=== PATIENT | female | born 1955 | race Caucasian/White ===

== ENCOUNTER → 2019-05-15 07:00 | Outpatient (CLI) | payer BC, SELFPAY ==
[2019-05-15 08:16] LABS: CREATININE FINGERSTICK < 0.6 mg/dL (0.55-1.02); EGFR FINGERSTICK > 60.0000 mL/min (>60)
== END ==
PROVIDERS: Family Provider Internal Medicine; PCP Internal Medicine; Referring Provider Internal Medicine; Visit Provider Internal Medicine
DX: R90.89 Other abnormal findings on diagnostic imaging of central nervous system (principal); Z78.0 Asymptomatic menopausal state

== ENCOUNTER → 2021-04-15 13:31 | Outpatient (CLI) | payer BC, SELFPAY ==
--- NOTE | 2021-04-15 13:34 | VDLE_ITS ---
Reason For Study: SWELLING Procedure LEFT Exam performed in department. GSV is normal. This is a venous duplex using B-mode, color CFV is compressible, spontaneous, phasic, flow and spectral Doppler. competent, and demonstrates normal Left CFV and POPV doppler taken in augmentation. transverse due to pt. body habitus. FV is compressible, spontaneous, phasic, A preliminary report was called and/or faxed competent and demonstrates normal to DR TAVERAS. augmentation. POP V is compressible, spontaneous, phasic, competent and demonstrates normal augmentation. T/P Trunk is compressible. PTV is compressible. LT PerV is compressible. VL/Venous Duplex US, Unilateral Interpretation Summary There is no evidence of left lower extremity deep vein thrombosis. Left great s aphenous vein appears patent and compressible segmentally. Technically challenging examination second abdon to patient body habitus Ordering Physician: Марина Taveras Referring Physician: Марина Taveras Performed By: Judie Yanes, RDCS, RVT
== END ==
PROVIDERS: PCP Internal Medicine; Referring Provider Internal Medicine; Visit Provider Internal Medicine
DX: M79.89 Other specified soft tissue disorders (principal)
CPT/HCPCS: 93971

== ENCOUNTER → 2024-04-17 | Outpatient (CLI) | payer MEDICARE, SELFPAY ==
--- NOTE | 2024-04-17 15:25 | BI_ITS ---
MAMMOGRAPHY - BILATERAL SCREENING REASON FOR EXAM: Female, 68 years old. Routine annual screening examination. PERTINENT HISTORY: Grandmother with breast cancer. TECHNIQUE: Digital bilateral breast dora (3D mammographic acquisition) in the CC and MLO projections. 2-D mediolateral oblique (MLO) and craniocaudad (CC) views of both breasts were obtained. CAD: Full Field Digital Mammography with Computer Added Detection was performed. COMPARISON: Comparison is made with prior outside examination dated November 14, 2013. FINDINGS: Breast Composition: The breasts are almost entirely fatty. There are no dominant masses or suspicious calcifications. Stable fat-containing bilateral axillary lymph nodes. No other significant abnormalities are identified. There has been no significant change since the prior study. BI/SCRN MAMM (CAD)W/DORA BILAT IMPRESSION: Stable bilateral screening mammogram. Yearly follow-up mammogram recommended. (A) ASSESSMENT CATEGORY: BIRADS Category 2: Benign. A letter regarding these results will be sent to the patient by the facility within 30 days. Approximately 10% of breast cancers are not detected by mammography. A normal mammogram should not delay biopsy of a clinically suspicious abnormality. [id number] Electronically Signed: Porter Garcias MD at 7:45 EDT ,
--- NOTE | 2024-04-17 15:26 | BD_ITS ---
STUDY: DUAL ENERGY X-RAY ABSORPTIOMETRY / DXA REASON FOR EXAM: Female, 68 years old. [id number] -- Postmenopausal status TECHNIQUE: Bone Mineral Density (BMD) measurements of lumbar spine and bilateral hips were obtained. COMPARISON: None. FINDINGS: Lumbar Spine (L1-L4): g/cm2 (0.880) / T-score (-1.8) / Z-score (0.2) Findings are suggestive of osteopenia with a moderate fracture risk. Left Femur Total: g/cm2 (0.911) / T-score (-0.3) / Z-score (1.1) Left Femoral Neck: g/cm2 (0.719) / T-score (-1.2) / Z-score (0.5) Right Femur Total: g/cm2 (0.946) / T-score (0.0) / Z-score (1.4) Right Femoral Neck: g/cm2 (0.687) / T-score (-1.5) / Z-score (0.2) BD/Dexa Bone Density Study IMPRESSION: The patient is considered osteopenic as outlined below according to World Jean Organization (WHO) criteria with a moderate fracture risk. Reference Information: The T-score is the number of standard deviations above or below the standard which is normal for young adults at their peak bone mineral density. The World Health Organization (WHO) interprets the T-scores as follows: Above -1 Normal bone density Between -1 and -2.5 Osteopenia Equal to / or below -2.5 Osteoporosis As a practical clinical guideline, osteopenia may be graded as follows: Mild -1 through -1.5 Moderate -1.6 through -2.0 Severe -2.1 through -2.4 The Z-score is the number of standard deviations above or below age-matched controls. A Z-score of less than -1.5 would be considered abnormal. References: 1. NIH Osteoporosis and Related Bone Diseases www osteo.org 2. International Society for Clinical Densitometry www iscd.org 3. National Osteoporosis Foundation www nof.org Electronically Signed: Porter Garcias MD at 9:42 EDT ,
== END | disposition home or self-care (01) ==
LOC: OPBD 15:23
PROVIDERS: PCP Internal Medicine; Referring Provider Internal Medicine; Visit Provider Internal Medicine
DX: Z12.31 Encounter for screening mammogram for malignant neoplasm of breast (principal); Z78.0 Asymptomatic menopausal state
CPT/HCPCS: 77063; 77067; 77080

== ENCOUNTER → 2025-04-20 | Outpatient (CLI) | payer MEDICARE, OTHER, SELFPAY ==
--- NOTE | 2025-04-20 13:41 | BI_ITS ---
EXAM: SCRN MAMM (CAD)W/DORA BILAT DATE: 04/20/2025 CLINICAL HISTORY: F, Age 69 y/o , BILAT BRST SCREEN DORA ADD-ON; DUE AFTER APRIL 20 TECHNIQUE: SCRN MAMM (CAD)W/DORA BILAT COMPARISON: Prior exam(s) dated 04/17/2024. FINDINGS: TISSUE DENSITY: The breasts are almost entirely fatty. Bilateral Breast Mammographic Findings: Benign-appearing round microcalcifications are seen in both breasts. No suspicious masses, suspicious clustered microcalcifications, architectural distortion or secondary signs of malignancy identified in either breast. Stable nodular densities are seen in both breasts. BI/SCRN MAMM (CAD)W/DORA BILAT IMPRESSION: Stable benign-appearing screening mammogram. OVERALL FINAL ASSESSMENT BI-RADS 2: BENIGN RECOMMENDATION: Routine annual follow-up in 1 Year A letter with findings and recommendations will be mailed to the patient. Reading Location: [id number]
== END | disposition home or self-care (01) ==
LOC: OPBI 13:40
PROVIDERS: PCP Internal Medicine; Referring Provider Internal Medicine; Visit Provider Internal Medicine
DX: Z12.31 Encounter for screening mammogram for malignant neoplasm of breast (principal)
CPT/HCPCS: 77063; 77067

== ENCOUNTER → 2025-05-08 | Outpatient (CLI) | payer MEDICARE, OTHER, SELFPAY ==
--- NOTE | 2025-05-08 13:12 | ECHOD_ITS ---
Reason For Study Reason For Study: MURMUR Procedure This was a 2D Doppler, Color Flow transthoracic echocardiogram. Exam performed in department. Left Ventricle Normal LV size. Mild concentric left ventricular hypertrophy. Left ventricular systolic function is normal. The left ventricular ejection fraction is 65 %. Stage 1 diastolic dysfunction. Right Ventricle Normal RV size. Normal systolic function. Atria There is moderate biatrial dilatation. Mitral Valve Mild mitral annular calcification. Mild (1+) mitral valve insufficiency. Tricuspid Valve Normal tricuspid valve. Mild (1+) tricuspid valve insufficiency. Pulmonary artery systolic pressure is 48 mmHg. Aortic Valve Trisinus/trileaflet aortic valve. Aortic sclerosis, no stenosis. There is no aortic stenosis. Trivial aortic valve insufficiency. Pulmonic Valve The pulmonic valve is not well visualized. Trivial pulmonic valve insufficiency. Great Vessels Mildly dilated aortic root. Pericardium/Pleural Trivial pericardial effusion. There are no echocardiographic indications of cardiac tamponade. MMode/2D Measurements & Calculations LVIDd: 5.3 cm IVSd: 1.3 cm Ao root diam: 4.1 cm LVIDs: 2.7 cm LVPWd: 1.4 cm RVDd: 3.5 cm FS: 49.3 % LAV(MOD-bp): 101.4 ml LVAd ap4: 32.4 cm2 SV(MOD-sp4): 75.1 ml LAV(MOD-bp) Indexed: 39.7 ml/m2 LVLd ap4: 8.0 cm SI(MOD-sp4): 29.4 ml/m2 LAV(MOD-sp2): 86.0 ml EDV(MOD-sp4): 110.0 ml LAV(MOD-sp4): 113.2 ml EDV(sp4-el): 111.6 ml LVAs ap4: 16.2 cm2 LVLs ap4: 6.7 cm ESV(MOD-sp4): 34.9 ml ESV(sp4-el): 33.1 ml EF(MOD-sp4): 68.3 % EF(sp4-el): 70.4 % SV(sp4-el): 78.5 ml LA A4 area: 30.0 cm2 LA dimension(2D): 4.4 cm RA A4 area: 25.3 cm2 TAPSE: 1.9 cm Doppler Measurements & Calculations MV E max brent: 107.4 cm/sec Lat Peak E' Brent: 12.9 cm/sec Med Peak E' Brent: 56.3 cm/sec E/E' lat: 8.3 E/E' med: 1.9 Ao V2 max: 130.0 cm/sec LV V1 max: 96.3 cm/sec TR max brent: 287.1 cm/sec Ao max P.8 mmHg LV V1 max P.7 mmHg TR max P.0 mmHg Ao V2 mean: 93.9 cm/sec LV V1 mean P.2 mmHg Ao mean P.0 mmHg LV V1 mean: 70.2 cm/sec Ao V2 VTI: 30.8 cm LV V1 VTI: 23.1 cm AV (velocity ratio): 0.75 ECHO/Echo Complete Interpretation Summary The left ventricular ejection fraction is 65 %. Stage 1 diastolic dysfunction. Mild concentric left ventricular hypertrophy. There is moderate biatrial dilatation. Mild mitral annular calcification. Mild (1+) mitral valve insufficiency. Aortic sclerosis, no stenosis. Mildly dilated aortic root. Ordering Physician: Марина Taveras Referring Physician: Марина Taveras Performed By: Keyona Meraz RCS
== END | disposition home or self-care (01) ==
LOC: CVS 13:12
PROVIDERS: PCP Internal Medicine; Referring Provider Internal Medicine; Visit Provider Internal Medicine
DX: R01.1 Cardiac murmur, unspecified (principal)
CPT/HCPCS: 93306

== ENCOUNTER → 2025-05-22 | Outpatient (CLI) | payer MEDICARE, OTHER, SELFPAY ==
--- NOTE | 2025-05-22 17:16 | CT_ITS ---
PROCEDURE: CTA CHEST W/WO CONTRAST 05/22/2025 REASON FOR EXAM: OTHER SPECIFIED ABNORMAL FINDINGS OF BLOOD TECHNIQUE: Procedure Code: [id number] Modality: CT Procedure: CTA CHEST W/WO CONTRAST Multiplanar Sagittal and Coronal images were obtained. CONTRAST: Isovue 370 VOLUME: 100 mL One or more dose reduction techniques were used (e.g., Automated exposure control, adjustment of the mA and/or kV according to patient size, use of iterative reconstruction technique). RADIATION DOSE SUMMARY: CTDlvol: 15.5 mGy DLP: 563 mGycm COMPARISON: 09/17/2020. FINDINGS: Peripherally calcified nodule of the left thyroid lobe measuring 1 cm. Moderate coronary artery calcifications are noted. Moderate cardiomegaly. Enlarged main pulmonary artery suggestive of pulmonary arterial hypertension. Subsegmental atelectatic changes. Bilateral basilar hypoventilatory pulmonary changes/ground-glass densities of the lower lobes, hypoventilatory pulmonary changes and/or less likely developing pneumonia. Diffuse spondylosis. Normal enhancement of the main pulmonary artery and right and left pulmonary arteries. Normal enhancement of the bilateral peripheral pulmonary arteries. There is no demonstrated pulmonary embolism. Normal thoracic aorta and visualized great vessels. There is no demonstrated aortic dissection. Normal pericardium. Normal mediastinum. Normal hilar regions. Normal visualized trachea and bronchi. Normal pleura. CT/CTA Chest W/WO Contrast IMPRESSION: No demonstrated pulmonary embolism or arterial dissection. Peripherally calcified nodule of the left thyroid lobe measuring 1 cm. Moderate coronary artery calcifications are noted. Moderate cardiomegaly. Enlarged main pulmonary artery suggestive of pulmonary arterial hypertension. Subsegmental atelectatic changes. Bilateral basilar hypoventilatory pulmonary changes/ground-glass densities of t he lower lobes, hypoventilatory pulmonary changes and/or less likely developing pneumonia. Diffuse spondylosis. Reading Location: [facility] [place] [id number]
--- OUTSIDE RECORDS SUMMARY | 2025-05-22 17:19 | XMS RPT_ITS | CCD ---
Author Organization [facility] Care Team Providers Care Die Welder Name Role Phone Adolfo Osborn Unavailable Tim Rodriguez Unavailable Hannah Ewing Unavailable ARIEL Bradshaw Unavailable Unavailable Pratima Redmond Unavailable Unavailable Unavailable Unavailable Adolfo Osborn Unavailable Tim Rodriguez Unavailable Hannah Ewing Unavailable ARIEL Bradshaw Unavailable Unavailable Pratima Redmond Unavailable Unavailable Unavailable Unavailable Tim Rodriguez Unavailable ARIEL Bradshaw Unavailable Unavailable Wanda Puente Unavailable Unavailable Adolfo Osborn Unavailable Mendy Salazar Unavailable Unavailable Manny Wing Unavailable Unavailabl e Adolfo Osborn MD Unavailable Dr. Tim Rodriguez Unavailable Hannah Ewing Unavailable Jennifer Dr. Dumont Unavailable [phone] ARIEL Bradshaw LPN Unavailable Unavailable Pratima Redmond Unavailable Unavailable Unavailable Unavailable Unavailable Unavailable Dayanna Menchaca LPN Unavailable Unavailable Adolfo Osborn Unavailable Adolfo Osborn MD Unavailable Unavailable Unavailable Qamar, Juan Carlos Unavailable Unavailable Unavailable Unavailable [facility] Unav ailable Wanda Puente LPN Unavailable Unavailable Adolfo Osborn MD Attending Unavailable Anurag ORTA, Adolfo Thomas Referring Unavailable Adolfo Osborn MD Consulting Unavailable Manchak LASTER HAND, Elysia Unavailable Unavailable Unavailable Primary Care Provider UnavailAdolfo Winn MD Primary Care Provider ANURAG, ADOLFO Thomas Primary Care Unavailable KUZNICKI, SERA WORTHINGTON Referring Unavailab le BONEZZI, ADOLFO M Primary Care Unavailable HRNCHAR, DEJA Referring Unavailable BONEZZI, ADOLFO M Primary Care Unavailable HRNCHAR, DEJA Referring Unavailable BONEZZI, ADOLFO Thomas Primary Care Unavailable HRNCHAR, DEJA Referring Unavailable BRAZOFSKYARLETH Attending Unavailable TIZZANO, HUNTER Langley Referring Unavailable KUZNICKI, SERA WORTHINGTON Admitting Unavailab le KUZNICKI, SERA WORTHINGTON Attending Unavailab le TIZZANO, HUNTER Langley Referring Unavailable TIZZANO, HUNTER Langley Attending Unavailable SELF Referring Unavailable KUZNICKI, SERA WORTHINGTON Attending Unavailab le BRAZOFSKYARLETH Referring Unavailable HRNCHAR, DEJA Attending Unavailable BONEADOLFO MCCLURE Primary Care Unavailable HRNCHAR, DEJA Attending Unavailable BONEREN, ADOLFO Thomas Primary Care Unavailable KUZNICKI, SERA WORTHINGTON Attending Unavailab le BONEZZI, ADOLFO M Primary Care Unavailable HRNCHAR, DEJA Attending Unavailable BONEREN, ADOLFO M Primary Care Unavailable Dr. Adolfo Osborn MD Primary Care Provider [phone] Dr. Adolfo Osborn MD Attending Provider Dr. Adolfo Osborn MD Referring Provider [phone] Adolfo Osborn Attending Unavailable Adolfo Osborn Referring Unavailable Anurag, Adolfo Primary Care Unavailable Adolfo Osborn Referring Unavailable Adolfo Osborn Primary Care Unavailable Adolfo Osborn Attending Unavailable Adolfo Osborn Attending Unavailable Adolfo Osborn Referring Unavailable Boneren, Adolfo Primary Care Unavailable BoneAdolfo mcclure Primary Care Unavailable Sawyer, Deb Attending Unavailable Medications Current Medications Medication Drug Class(es) Dates Sig (Normalized) Sig (Original) acetaminophen 500 mg oral tablet (7 sources) Start: 07-21-2024 take 2 tablets by mouth every six hours as needed acetaminophen (TYLENOL EXTRA STRENGTH) 500 mg tablet Take 2 tablets by mouth every 6 hours as needed for pain. 60 tablet 07/21/2024 5:58 PM EST 07/21/2024 Active amLODIPine 10 mg oral tablet (20 sources) Dihydropyridine Calcium Channel Marty Start: 03-31-2024 take 1 tablet by mouth once daily amLODIPine (NORVASC) 10 mg tablet Take 10 mg by mouth once daily. 03/31/2024 Active Start: 03-09-2023 take 1 tablet by lefty th once daily Norvasc 10 mg oral tablet 1 Tablet QD for 90 days Quantity: 90 {Tablet} Refills: 3 Ordered: 09-Mar-2023 Adolfo Osborn MD, MD, Dana M Start : 09-Mar-2023 Active Comments: Mail order. Start: 04-14-2022 take 1 tablet by lefty th once daily Norvasc 10 mg oral tablet 1 Tablet QD for 0 days Quantity: 90 {Tablet} Refills: 3 Ordered: 06-Mar-2023 Anurag ORTA, Adolfo Montilla MD Start : 06-Mar-2023 Active Comments: Mail order. Start: 09-26-2021 take 1 tablet by lefty once daily Norvasc 10 MG Oral Tablet 1 Tablet QD for 0 days Quantity: 90 {Tablet} Refills: 3 Ordered: 26-Sep-2021 Anurag ORTA, Adolfo Montilla MD Start : 26-Sep-2021 Active Start: 12-08-2020 take 1 tablet by lefty th once daily Norvasc 10 MG Oral Tablet 1 Tablet QD for 0 days Quantity: 90 {Tablet} Refills: 3 Ordered: 08-Dec-2020 Anurag ORTA, Adolfo Montilla MD Start : 08-Dec-2020 Active Comments: Mail order. Start: 12-08-2020 Norvasc 10 MG Oral Tablet 1 Tablet QD for 0 days Quantity: 10 {Tablet} Refills: 3 Ordered: 08-Dec-2020 Anurag ORTA, Adolfo Montilla MD Start : 08-Dec-2020 Active Comments: give 10 day supply until mail order arrives Start: 08-30-2020 take 1 tablet by lefty th once daily Norvasc 10 MG Oral Tablet 1 Tablet QD for 0 days Quantity: 90 {Tablet} Refills: 0 Ordered: 30-Aug-2020 Adolfo Osborn MD, MD, Dana M Start : 30-Aug-2020 Active Comments: Mail order. Start: 05-25-2020 take 1 tablet by lefty th once daily Norvasc 10 MG Oral Tablet 1 Tablet QD for 0 days Quantity: 90 {Tablet} Refills: 0 Ordered: 25-May-2020 Anurag ORTA, Adolfo Montilla MD Start : 25-May-2020 Active Comments: Mail order. 05-25-20 no refills patient is overdue for an appointment Start: 05-13-2019 take 1 tablet by lefty th once daily Norvasc 10 MG Oral Tablet 1 Tablet QD for 0 days Quantity: 90 {Tablet} Refills: 3 Ordered: 13-May-2019 Anurag ORTA, Adolfo Montilla MD Start : 13-May-2019 Active Comments: Mail order. Start: 02-10-2019 take 1 tablet by lefty th once daily Norvasc 10 MG Oral Tablet 1 Tablet QD for 0 days Quantity: 90 {Tablet} Refills: 3 Ordered: 10-Feb-2019 Anurag ORTA, Adolfo Montilla MD Start : 10-Feb-2019 Active Comments: Mail order. Start: 09-05-2018 take 1 tablet by lefty th once daily Norvasc 10 MG Oral Tablet 1 Tablet QD for 0 days Quantity: 90 {Tablet} Refills: 3 Ordered: 05-Sep-2018 Anurag ORTA, Adolfo Montilla MD Start : 05-Sep-2018 Active Start: 09-03-2018 take 1 tablet by lefty th once daily Norvasc 10 MG Oral Tablet 1 Tablet QD for 0 days Quantity: 90 {Tablet} Refills: 3 Ordered: 03-Sep-2018 Anurag ORTA, Adolfo Montilla MD Start : 03-Sep-2018 Active Start: 08-05-2018 take 1 tablet by lefty th once daily Norvasc 10 MG Oral Tablet 1 Tablet QD for 0 days Quantity: 90 {Tablet} Refills: 0 Ordered: 05-Aug-2018 Adolfo Osborn MD, MD, Adolfo Thomas Start : 05-Aug-2018 Active take 1 tablet by lefty th once daily amLODIPine 10 mg oral tablet ; 1 tab(s) orally once a day Quantity: 0 Refills: 0 Ordered: 14-Feb-2020 Jody Marie Generic Substitution Allowed Comment on above: Mail order. Mail order. 05-25-20 no refills patient is overdue for an appointment give 10 day supply u ntil mail order arrives CBD eatable (1 source) CBD eatable Rolando tity: 0 Refills: 0 Ordered: 06-Apr-2022 Taylor Osorio Generic Substitution Allowed colestipol hydrochloride 5000 mg granules for oral suspension (20 sources) Bile Acid Sequestrant Start: 2023 take 5 g by mouth once daily Colestipol HCl 5 gram granules Take 5 g by mouth once daily. 03/18/2024 Active hydroCHLOROthiazide 25 mg oral tablet (20 sources) Thiazide Diuretic Start: 2023 take 1 tablet by mouth once daily hydroCHLOROthiazide 25 mg tablet Take 25 mg by mouth once daily. 03/31/2024 Active Start: 03-06-2023 take 1 tablet by lefty th once daily hydroCHLOROthiazide 25 mg oral tablet 1 Tablet QD for 0 days Quantity: 90 {Tablet} Refills: 3 Ordered: 06-Mar-2023 Anurag ORTA, Adolfo Montilla MD Start : 06-Mar-2023 Active Comments: Mail order. Start: 04-14-2022 take 1 tablet by lefty th once daily hydroCHLOROthiazide 25 MG Oral Tablet 1 Tablet QD for 0 days Quantity: 90 {Tablet} Refills: 3 Ordered: 14-Apr-2022 Adolfo Osborn MD, MD, Dana M Start : 14-Apr-2022 Active Comments: Mail order. Start: 09-26-2021 take 1 tablet by lefty th once daily hydroCHLOROthiazide 25 MG Oral Tablet 1 Tablet QD for 0 days Quantity: 90 {Tablet} Refills: 3 Ordered: 26-Sep-2021 Anurag ORTA, Adolfo Montilla MD Start : 26-Sep-2021 Active Start: 12-08-2020 take 1 tablet by lefty th once daily hydroCHLOROthiazide 25 MG Oral Tablet 1 Tablet QD for 0 days Quantity: 10 {Tablet} Refills: 3 Ordered: 08-Dec-2020 Adolfo Osborn MD, MD, Dana M Start : 08-Dec-2020 Active Comments: 12-08-20 given enough for 10 day supply until mail order arrives Start: 08-30-2020 take 1 tablet by lefty th once daily hydroCHLOROthiazide 25 MG Oral Tablet 1 Tablet QD for 0 days Quantity: 90 {Tablet} Refills: 0 Ordered: 30-Aug-2020 Anurag ORTA, Adolfo Montilla MD Start : 30-Aug-2020 Active Comments: Mail order. Start: 05-25-2020 take 1 tablet by lefty th once daily hydroCHLOROthiazide 25 MG Oral Tablet 1 Tablet QD for 0 days Quantity: 90 {Tablet} Refills: 0 Ordered: 25-May-2020 Adolfo Osborn MD, MD, Dana M Start : 25-May-2020 Active Comments: Mail order. 05-25-20 no refills patient is overdue for an appointment Start: 05-13-2019 take 1 tablet by lefty th once daily hydroCHLOROthiazide 25 MG Oral Tablet 1 Tablet QD for 0 days Quantity: 90 {Tablet} Refills: 3 Ordered: 13-May-2019 Adolfo Osborn MD, MD, Dana M Start : 13-May-2019 Active Comments: Mail order. Start: 02-10-2019 take 1 tablet by lefty th once daily hydroCHLOROthiazide 25 MG Oral Tablet 1 Tablet QD for 0 days Quantity: 90 {Tablet} Refills: 3 Ordered: 10-Feb-2019 Adolfo Osborn MD, MD, Dana M Start : 10-Feb-2019 Active Comments: Mail order. Start: 09-05-2018 take 1 tablet by lefty th once daily HydroCHLOROthiazide 25 MG Oral Tablet 1 Tablet QD for 0 days Quantity: 90 {Tablet} Refills: 3 Ordered: 05-Sep-2018 Adolfo Osborn MD, MD, Dana M Start : 05-Sep-2018 Active Start: 09-03-2018 take 1 tablet by lefty th once daily HydroCHLOROthiazide 25 MG Oral Tablet 1 Tablet QD for 0 days Quantity: 90 {Tablet} Refills: 3 Ordered: 03-Sep-2018 Adolfo Osborn MD, MD, Dana M Start : 03-Sep-2018 Active Start: 08-05-2018 take 1 tablet by lefty th once daily HydroCHLOROthiazide 25 MG Oral Tablet 1 Tablet QD for 0 days Quantity: 90 {Tablet} Refills: 0 Ordered: 05-Aug-2018 Adolfo Osborn MD, MD, Dana M Start : 05-Aug-2018 Active HYDROCHLOROTHIAZ JULIA 25MG TABLETS ; 1 tab(s) orally once a day Quantity: 0 Refills: 3 Ordered: 14-Feb-2020 Jody Marie Generic Substitution Allowed Comments: Source=[employer], Medication=HYDROCHLOROTHIAZIDE 25MG TABLETS, OriginatingSource=[employer] [id number], OriginatingProvider=ADOLFO OSOBRN, Duration=90, Quantity=90, Refills=3, Date Last Modified/Filled=28-Nov-2019 Comment on above: Mail order. Mail order. 05-25-20 no refills patient is overdue for an appointment 12-08-20 given enough for 10 day supply until mail order arrives Source=[employer], Medication=HYDROCHLOROTHIAZIDE 25MG TABLETS, OriginatingSource=[employer] [id number], OriginatingProvider=ADOLFO OSBORN, Duration=90, Quantity=90, Refills=3, Date Last Modified/Filled=28-Nov-2019 ibuprofen 600 mg oral tablet (7 sources) Nonsteroidal Anti-inflammatory Drug Start: 07-21-2024 take 1 tablet by mouth every six hours as needed ibuprofen (MOTRIN) 600 mg tablet Take 1 tablet by mouth every 6 hours as needed for pain. 60 tablet 07/21/2024 5:58 PM EST 07/21/2024 Active losartan potassium 100 mg oral tablet (20 sources) Angiotensin 2 Receptor Marty Start: 04-01-2024 losartan (COZAAR) 100 mg tablet 100 mg once daily. 04/01/2024 Active Start: 03-06-2023 take 1 tablet by lefty th once daily losartan 100 mg oral tablet 1 Tablet daily for 0 days Quantity: 90 {Tablet} Refills: 3 Ordered: 06-Mar-2023 Adolfo Osborn MD, MD, Adolfo M Start : 06-Mar-2023 Active Comments: Mail order. Start: 04-14-2022 take 1 tablet by lefty th once daily Losartan Potassium 100 MG Oral Tablet 1 Tablet daily for 0 days Quantity: 90 {Tablet} Refills: 3 Ordered: 14-Apr-2022 Anurag ORTA, Adolfo Montilla MD Start : 14-Apr-2022 Active Comments: Mail order. Start: 09-26-2021 take 1 tablet by lefty th once daily Losartan Potassium 100 MG Oral Tablet 1 Tablet daily for 0 days Quantity: 90 {Tablet} Refills: 3 Ordered: 26-Sep-2021 Anurag ORTA, Adolfo Montilla MD Start : 26-Sep-2021 Active Start: 12-08-2020 take 1 tablet by lefty th once daily Losartan Potassium 100 MG Oral Tablet 1 Tablet daily for 0 days Quantity: 90 {Tablet} Refills: 3 Ordered: 08-Dec-2020 Anurag ORTA, Adolfo Montilla MD Start : 08-Dec-2020 Active Comments: Mail order. Start: 08-30-2020 take 1 tablet by lefty th once daily Losartan Potassium 100 MG Oral Tablet 1 Tablet daily for 0 days Quantity: 90 {Tablet} Refills: 0 Ordered: 30-Aug-2020 Adolfo Osborn MD, MD, Dana M Start : 30-Aug-2020 Active Comments: Mail order. Start: 05-25-2020 take 1 tablet by lefty th once daily Losartan Potassium 100 MG Oral Tablet 1 Tablet daily for 0 days Quantity: 90 {Tablet} Refills: 0 Ordered: 25-May-2020 Adolfo Osborn MD, MD, Dana M Start : 25-May-2020 Active Comments: Mail order. 05-25-20 no refills patient is overdue for an appointment Start: 05-13-2019 take 1 tablet by lefty th once daily Losartan Potassium 100 MG Oral Tablet 1 Tablet daily for 0 days Quantity: 90 {Tablet} Refills: 3 Ordered: 13-May-2019 Adolfo Osborn MD, MD, Dana M Start : 13-May-2019 Active Comments: Mail order. Start: 09-05-2018 take 1 tablet by lefty th once daily Losartan Potassium 100 MG Oral Tablet 1 Tablet daily for 0 days Quantity: 90 {Tablet} Refills: 3 Ordered: 05-Sep-2018 Adolfo Osborn MD, MD, Dana M Start : 05-Sep-2018 Active Comments: Mail order. Start: 09-03-2018 take 1 tablet by lefty th once daily Losartan Potassium 100 MG Oral Tablet 1 Tablet daily for 0 days Quantity: 90 {Tablet} Refills: 3 Ordered: 03-Sep-2018 Adolfo Osborn MD, MD, Dana M Start : 03-Sep-2018 Active Start: 08-05-2018 take 1 tablet by lefty th once daily Losartan Potassium 100 MG Oral Tablet 1 Tablet daily for 0 days Quantity: 90 {Tablet} Refills: 0 Ordered: 05-Aug-2018 Adolfo Osborn MD, MD, Dana M Start : 05-Aug-2018 Active take 1 tablet by lefty th once daily losartan 100 mg oral tablet ; 1 tab(s) orally once a day Quantity: 0 Refills: 0 Ordered: 14-Feb-2020 Jody Marie Generic Substitution Allowed Comment on above: Mail order. Mail order. 05-25-20 no refills patient is overdue for an appointment give enough for 10 d ays until mail order arrives metoprolol tartrate 50 mg oral tablet (20 sources) beta-Adrenergic Marty Start: 04-16-2024 metoprolol tartrate, short acting, (LOPRESSOR) 50 mg tablet Take 100 mg by mouth two times a day. 04/16/2024 Active Start: 04-16-2024 take 1 tablet by lefty th twice daily metoprolol tartrate, short acting, (LOPRESSOR) 50 mg tablet Take 50 mg by mouth two times a day. 04/16/2024 Active Start: 05-04-2022 take 1 tablet by lefty th twice daily Lopressor 50 mg oral tablet 1 Tablet bid for 0 days Quantity: 180 {Tablet} Refills: 3 Ordered: 06-Mar-2023 Adolfo Osborn MD, MD, Dana M Start : 06-Mar-2023 Active Start: 09-26-2021 take 1 tablet by lefty th twice daily Lopressor 50 MG Oral Tablet 1 Tablet bid for 0 days Quantity: 180 {Tablet} Refills: 3 Ordered: 26-Sep-2021 Adolfo Osborn MD, MD, Dana M Start : 26-Sep-2021 Active Start: 12-08-2020 take 4-14 tablets by mouth twice daily Lopressor 50 MG Oral Tablet 1 Tablet bid for 0 days Quantity: 20 {Tablet} Refills: 0 Ordered: 08-Dec-2020 Anurag ORTA, Adolfo Montilla MD Start : 08-Dec-2020 Active Comments: 12-08-20 give enough for 10 days until mail order arrives Start: 08-30-2020 take 1 tablet by lefty th twice daily Lopressor 50 MG Oral Tablet 1 Tablet bid for 0 days Quantity: 180 {Tablet} Refills: 0 Ordered: 30-Aug-2020 Anurag ORTA, Adolfo Montilla MD Start : 30-Aug-2020 Active Comments: Mail order. Start: 05-28-2020 take 1 tablet by lefty th twice daily Lopressor 50 MG Oral Tablet 1 Tablet bid for 0 days Quantity: 180 {Tablet} Refills: 0 Ordered: 28-May-2020 Adolfo Osborn MD, MD, Dana M Start : 28-May-2020 Active Comments: Mail order. 05-28-2020 90 days only no refills patient is over due for an appointment Start: 05-13-2019 take 1 tablet by lefty th twice daily Lopressor 50 MG Oral Tablet 1 Tablet bid for 0 days Quantity: 180 {Tablet} Refills: 3 Ordered: 13-May-2019 Adolfo Osborn MD, MD, Dana M Start : 13-May-2019 Active Comments: Mail order. Start: 02-10-2019 take 1 tablet by lefty th twice daily Lopressor 50 MG Oral Tablet 1 Tablet bid for 0 days Quantity: 180 {Tablet} Refills: 3 Ordered: 10-Feb-2019 Adolfo Osborn MD, MD, Dana M Start : 10-Feb-2019 Active Comments: Mail order. Start: 09-05-2018 take 1 tablet by lefty th twice daily Lopressor 50 MG Oral Tablet 1 Tablet bid for 0 days Quantity: 180 {Tablet} Refills: 3 Ordered: 05-Sep-2018 Adolfo Osborn MD, MD, Dana M Start : 05-Sep-2018 Active Start: 09-03-2018 take 1 tablet by lefty th twice daily Lopressor 50 MG Oral Tablet 1 Tablet bid for 0 days Quantity: 180 {Tablet} Refills: 3 Ordered: 03-Sep-2018 Anurag ORTA, Adolfo Montilla MD Start : 03-Sep-2018 Active Start: 07-13-2017 take 1 tablet by lefty th twice daily Lopressor 50 MG Oral Tablet 1 Tablet bid for 0 days Quantity: 180 {Tablet} Refills: 3 Ordered: 13-Jul-2017 Anurag ORTA, Adolfo Montilla MD Start : 13-Jul-2017 Active Comment on above: Mail order. Mail order. 0 90 days only no refills patient is over due for an appointment 12-08-20 give enough for 10 days until mail order arrives sennosides, fci 8.6 mg oral tablet (7 sources) Start: 07-21-20 take 1 tablet by mouth every twelve hours as needed Senna 8.6 mg tab Take 1 tablet by mouth two times a day as needed for constipation. 20 tablet 07/21/2024 5:58 PM EST 07/21/2024 Active sulfamethoxazole 800 mg / trimethoprim 160 mg oral tablet (1 source) Dihydrofolate Reductase Inhibitor Antibacterial, Sulfonamide Antimicrobial Start: 04-06-20 End: 04-15-20 take 1 tablet by mouth twice daily at mealtime Bactrim DS 800 mg-160 mg oral tablet ; 1 tab(s) orally 2 times a day x 10 days. Take with food. Quantity: 20 Refills: 0 Ordered: 06-Apr-2022 Juan Carlos Rainey Start: 06-Apr-2022 End: 15-Apr-2022 Generic Substitution Allowed Comments: Avoid prolonged or excessive exposure to direct and/or artificial sunlight while taking this medication.Finish all this medication unless otherwise directed by prescriber.Medica tion should be taken with plenty of water. Comment on above: Avoid prolonged or e xcessive exposure to direct and/or artificial sunlight while taking this medication.Finish all this medication unless otherwise directed by prescriber.Medication should be taken with plenty of water. Completed/Discontinued Medications Medication Drug Class(es) Dates Sig (Normalized) Sig (Original) [id number] 200 actuat albuterol 0.09 mg/actuat metered dose inhaler (20 sources) beta2-Adrenergic Agonist Start: 04-29-2024 End: 07-17-2024 take 1 puff(s) by inhalation every four hours as needed albuterol HFA (PROVENTIL HFA, VENTOLIN HFA) 90 mcg/actuation inhaler Inhale 1 Puff as instructed every 4 hours as needed. 04/29/2024 07/17/2024 Discontinued Start: 02-02-2012 End: 02-19-2012 take 2 puff(s) by inhalation three times daily PROAIR HFA, 108 (90 Base)MCG/ACT (Inhalation Aerosol Solution) 2 (two) Puff(s) tid for 0 days Quantity: 1 {Aerosol_Soln} Refills: 0 Ordered: 19-Feb-2012 ARIEL Bradshaw LPN Start : 02-Feb-2012 End : 19-Feb-2012 Inactive Start: 02-02-2012 End: 02-19-2012 take 2 puff(s) by inhalation three times daily PROAIR HFA, 108 (90 Base)MCG/ACT (Inhalation Aerosol Solution) 2 (two) Puff(s) tid for 0 days Quantity: 1 {Aerosol_Soln} Refills: 0 Ordered: 19-Feb-2012 ARIEL Bradshaw LPN Start : 02-Feb-2012 End : 19-Feb-2012 Inactive aliskiren 300 mg oral tablet (20 sources) Renin Inhibitor Start: 11-21-2011 End: 11-21-2011 take 1 tablet by mouth once daily TEKTURNA, 300MG (Oral Tablet) 1 (one) Tablet qd for 0 days Quantity: 90 {Tablet} Refills: 3 Ordered: 21-Nov-2011 Adolfo Osborn MD, MD, Adolfo Thomas Start : 21-Nov-2011 End : 21-Nov-2011 Discontinued amLODIPine 10 mg / olmesartan medoxomil 40 mg oral tablet (20 sources) Dihydropyridine Calcium Channel Marty, Angiotensin 2 Receptor Marty Start: 12-15-2011 End: 12-29-2011 take 1 tablet by mouth once daily TIA, 10-40MG (Oral Tablet) 1 (one) Tablet qd for 0 days Quantity: 90 {Tablet} Refills: 3 Ordered: 29-Dec-2011 Juan Carlos Barron RN Start : 15-Dec-2011 End : 29-Dec-2011 Inactive ascorbic acid 1000 mg oral tablet (8 sources) Vitamin C take 1 mg by mouth twice daily Vitamin C 1,000 mg oral tablet bid (1,000 mg) Active ascorbic acid 60 mg / beta carotene 5000 unt / copper sulfate 40 mg / dl-alpha tocopheryl acetate 30 unt / sodium selenite 0.04 mg / zinc oxide 40 mg oral tablet (6 sources) Vitamin C End: 08-08-2007 take 1 tablet by mouth once daily CENTRUM (Oral Tablet) 1 qd for 0 days Refills: 0 Ordered: 08-Aug-2007 ARIEL Bradshaw LPN End : 08-Aug-2007 Discontinued aspirin 81 mg oral tablet (20 sources) Platelet Aggregation Inhibitor, Nonsteroidal Anti-inflammatory Drug take 1 tablet by mouth once daily Aspirin Low Dose 81 MG Oral Tablet 1 qd (81 MG) Inactive atenolol 50 mg oral tablet (20 sources) beta-Adrenergic Marty Start: 11-03-2008 End: 01-05-2009 take 1 tablet by mouth once daily ATENOLOL, 50MG (Oral Tablet) 1 Tablet QD for 0 days Refills: 0 Ordered: 05-Jan-2009 Adolfo Osborn MD, MD, Dana M Start : 03-Nov-2008 End : 05-Jan-2009 Discontinued atorvastatin 40 mg oral tablet (20 sources) HMG-CoA Reductase Inhibitor Start: 02-02-2017 End: 02-02-2017 Atorvastatin Calcium 40 MG Oral Tablet 1 (one) Tablet at night for 0 days Quantity: 90 {Tablet} Refills: 3 Ordered: 02-Feb-2017 Anurag ORTA, Adolfo Osborn MD, Adolfo Thomas Start : 02-Feb-2017 End : 02-Feb-2017 Inactive Comments: Mail order. Comment on above: Mail order. 24 hr buPROPion hydrochloride 150 mg extended release oral tablet (11 sources) Aminoketone Start: 11-07-2021 End: 04-14-2022 take 1 tablet by mouth every twenty-four hours in the morning buPROPion HCl ER (XL) 150 MG Oral Tablet Extended Release 24 Hour 1 (one) Tablet in am for 0 days Quantity: 30 {Tablet} Refills: 5 Ordered: 14-Apr-2022 Start : 07-Nov-2021 End : 14-Apr-2022 Inactive cefdinir 300 mg oral capsule (15 sources) Cephalosporin Antibacterial Start: 04-15-2021 End: 11-07-2021 take 1 capsule by mouth twice daily Cefdinir 300 MG Oral Capsule 1 (one) Capsule bid for 0 days Quantity: 20 {Capsule} Refills: 0 Ordered: 07-Nov-2021 Nikolai BARBA Dayanna Start : 15-Apr-2021 End : 07-Nov-2021 Inactive cefuroxime 500 mg oral tablet (20 sources) Cephalosporin Antibacterial Start: 02-02-2012 End: 02-16-2012 take 1 tablet by mouth twice daily CEFTIN, 500MG (Oral Tablet) 1 Tablet bid for 14 days Quantity: 28 {Tablet} Refills: 0 Ordered: 02-Feb-2012 Sarah Iglesias Start : 02-Feb-2012 End : 16-Feb-2012 Inactive Centrum (2 sources) End: 08-08-2007 take 1 tablet by mouth once daily CENTRUM (Oral Tablet) 1 qd for 0 days Refills: 0 Ordered: 08-Aug-2007 ARIEL Bradshaw End : 08-Aug-2007 Discontinued CENTRUM (Oral Tablet) (20 sources) End: 08-08-2007 take 1 tablet by mouth once daily CENTRUM (Oral Tablet) 1 qd for 0 days Refills: 0 Ordered: 08-Aug-2007 ARIEL Bradshaw LPN End : 08-Aug-2007 Discontinued End: 08-08-2007 take 1 tablet by mouth once daily CENTRUM (Oral Tablet) 1 qd for 0 days Refills: 0 Ordered: 08-Aug-2007 ARIEL Bradshaw End : 08-Aug-2007 Discontinued cetirizine hydrochloride 10 mg oral capsule (20 sources) Histamine-1 Receptor Antagonist Start: 09-17-2020 take 1 capsule by mouth once daily ZyrTEC Allergy 10 MG Oral Capsule 1 (one) Capsule daily for 0 days Quantity: 30 {Capsule} Refills: 0 Ordered: 15-Apr-2021 ARIEL Bradshaw LPN Start : 17-Sep-2020 Active take 1 tablet by mouth once amina y cetirizine (ZYRTEC) 10 mg tablet Take 10 mg by mouth once daily. Active cholecalciferol 0.05 mg oral tablet (20 sources) Vitamin D Start: 09-03-2018 take 1 tablet by mouth once daily Vitamin D3 2000 UNIT Oral Tablet [id number] Tablet qd for 0 days Quantity: 30 {Tablet} Refills: 0 Ordered: 03-Sep-2018 Adolfo Osborn MD, MD, Dana M Start : 03-Sep-2018 Active Start: 07-24-2016 take 1 tablet by lefty th in the morning Vitamin D3 2000 UNIT Oral Tablet Chewable 1 (one) Tablet Chewable Tablet Chewable in am for 0 days Quantity: 30 {Tablet} Refills: 0 Ordered: 02-Feb-2017 ARIEL Bradshaw Start : 24-Jul-2016 Active clotrimazole 10 mg oral lozenge (20 sources) Azole Antifungal Start: 01-16-2011 End: 01-26-2011 MYCELEX, 10MG (Mouth/Throat Desiree) 1 Desiree 5x daily for 10 days Quantity: 50 {Desiree} Refills: 0 Ordered: 16-Jan-2011 Sarah Iglesias Start : 16-Jan-2011 End : 26-Jan-2011 Inactive cyclobenzaprine hydrochloride 10 mg oral tablet (3 sources) Muscle Relaxant Start: 01-19-2021 End: 01-21-2021 take 1 tablet by mouth three times daily cyclobenzaprine 10 mg oral tablet ; 1 tab(s) orally 3 times a day Quantity: 9 Refills: 0 Ordered: 18-Jan-2021 Mendy Salazar Start: 18-Jan-2021 End: 20-Jan-2021 Status: Other Generic Substitution Allowed Comments: May cause drowsiness. Alcohol may intensify this effect. Use care when operating dangerous machinery.Obtain medical advice before taking any non-prescription drugs as some may affect the action of this medication. Comment on above: May cause drowsiness . Alcohol may intensify this effect. Use care when operating dangerous machinery.Obtain medical advice before taking any non-prescription drugs as some may affect the action of this medication. desonide 0.5 mg/ml topical cream (20 sources) Corticosteroid Start: 08-30-2017 End: 09-03-2018 DesOwen 0.05 % External Cream uad cream cream to affected area(s) bid prnm for 0 days Quantity: 15 {Gram} Refills: 2 Ordered: 03-Sep-2018 ARIEL Bradshaw LPN Start : 30-Aug-2017 End : 03-Sep-2018 Inactive doxycycline hyclate 100 mg oral tablet (20 sources) Tetracycline-class Drug Start: 02-02-2012 End: 02-16-2012 take 1 tablet by mouth twice daily DOXYCYCLINE HYCLATE, 100MG (Oral Tablet) 1 Tablet bid for 14 days Quantity: 28 {Tablet} Refills: 0 Ordered: 02-Feb-2012 Sarah Iglesias Start : 02-Feb-2012 End : 16-Feb-2012 Inactive fenofibrate 48 mg oral tablet (20 sources) Peroxisome Proliferator Receptor alpha Agonist Start: 01-22-2014 End: 01-22-2014 take 1 tablet by mouth once daily TRICOR, 48MG (Oral Tablet) 1 Tablet daily for 0 days Quantity: 90 {Tablet} Refills: 3 Ordered: 22-Jan-2014 Adolfo Osborn MD, MD, Dana M Start : 22-Jan-2014 End : 22-Jan-2014 Discontinued fluconazole 150 mg oral tablet (1 source) Azole Antifungal Start: 03-04-2025 End: 03-04-2025 take 1 tablet by mouth once fluconazole (DIFLUCAN) 150 mg tablet Take 1 tablet by mouth one time only for 1 dose. 1 tablet 03/04/2025 03/04/2025 irbesartan 300 mg oral tablet (20 sources) Angiotensin 2 Receptor Marty Start: 11-03-2008 End: 01-05-2009 take 1 tablet by mouth once daily AVAPRO, 300MG (Oral Tablet) 1 Tablet qd for 0 days Refills: 0 Ordered: 05-Jan-2009 Adolfo Osborn MD, MD, Dana M Start : 03-Nov-2008 End : 05-Jan-2009 Discontinued lidocaine 0.05 mg/mg medicated patch (3 sources) Antiarrhythmic, Amide Local Anesthetic Start: 01-19-2021 End: 01-25-2021 Lidoderm 5% topical film ; Apply topically to affected area once a day Quantity: 7 Refills: 0 Ordered: 18-Jan-2021 Mendy Salazar Start: 18-Jan-2021 End: 24-Jan-2021 Status: Other Generic Substitution Allowed Comments: For external use only.Remove old patch prior to applying a new patch. Comment on above: For external use onl y.Remove old patch prior to applying a new patch. lisinopril 40 mg oral tablet (20 sources) Angiotensin Converting Enzyme Inhibitor Start: 06-13-2012 End: 06-13-2012 take 1 tablet by mouth once daily LISINOPRIL, 40MG (Oral Tablet) 1 Tablet qd for 0 days Quantity: 90 {Tablet} Refills: 3 Ordered: 13-Jun-2012 Adolfo Osborn MD, MD, Dana M Start : 13-Jun-2012 End : 13-Jun-2012 Discontinued lorcaserin hydrochloride 10 mg oral tablet (20 sources) Serotonin-2c Receptor Agonist Start: 02-02-2017 End: 02-02-2017 take 1 tablet by mouth twice daily Belviq 10 MG Oral Tablet 1 (one) Tablet bid for 0 days Quantity: 60 {Tablet} Refills: 0 Ordered: 02-Feb-2017 Adolfo Osborn MD, MD, Dana M Start : 02-Feb-2017 End : 02-Feb-2017 Inactive Comments: sixty BMIdid not feel like it helped Comment on above: sixty BMIdid not fee l like it helped medroxyPROGESTERone acetate 10 mg oral tablet (20 sources) Progestin End: 01-05-2009 MEDROXYPROGESTERONE ACETATE, 10MG (Oral Tablet) 1 qd days 1-12 for 0 days Refills: 0 Ordered: 05-Jan-2009 ARIEL Bradshaw LPN End : 05-Jan-2009 Inactive Multivitamin preparation (20 sources) take 1 tablet by mouth once daily MULTIVITAMIN (PO Tab) 1 (one) qd Active End: 02-19-2012 MULTIVITAMIN (Oral Liquid) f or 0 days Refills: 0 Ordered: 19-Feb-2012 Adolfo Osborn MD, MD, Dana M End : 19-Feb-2012 Discontinued Comments: This order discontinued per [facility]. Comment on above: This order discontin ued per [facility]. pravastatin sodium 20 mg oral tablet (20 sources) HMG-CoA Reductase Inhibitor Start: 014 End: 014 take 1 tablet by mouth once daily PRAVACHOL, 20MG (Oral Tablet) 1 Tablet qd for 0 days Quantity: 90 {Tablet} Refills: 3 Ordered: 22-Jan-2014 Adolfo Osborn MD, MD, Dana M Start : 22-Jan-2014 End : 22-Jan-2014 Discontinued predniSONE 20 mg oral tablet (20 sources) Start: 012 End: take 1 tablet by mouth once daily PREDNISONE, 20MG (Oral Tablet) 1 Tablet daily for 3 days Quantity: 3 {Tablet} Refills: 0 Ordered: 02-Feb-2012 Sarah Iglesias Start : 02-Feb-2012 End : 05-Feb-2012 Inactive progesterone 200 mg oral capsule (20 sources) Progesterone End: take 1 capsule by mouth once daily PROMETRIUM, 200MG (Oral Capsule) 1 qd for 0 days Refills: 0 Ordered: 16-Jan-2011 End : 16-Jan-2011 Inactive sulfacetamide sodium 100 mg/ml ophthalmic solution (20 sources) Sulfonamide Antibacterial Start: End: SULFACETAMIDE SODIUM, 10% (Ophthalmic Solution) 2 (two) Drop(s) q 2-3 hrs for 7 days Quantity: 1 {Solution} Refills: 0 Ordered: 16-Jan-2011 Sarah Iglesias Start : 16-Jan-2011 End : 23-Jan-2011 Inactive terbinafine 250 mg oral tablet (20 sources) Allylamine Antifungal Start: End: 014 take 1 tablet by mouth once daily LAMISIL, 250MG (Oral Tablet) 1 Tablet daily for 0 days Quantity: 90 {Tablet} Refills: 0 Ordered: 22-Jan-2014 ARIEL Bradshaw LPN Start : 13-Jun-2012 End : 22-Jan-2014 Inactive triamcinolone acetonide 1 mg/ml topical cream (20 sources) Corticosteroid Start: 016 End: 017 Triamcinolone Acetonide 0.1 % External Cream 1 (one) Cream bid for 0 days Quantity: 1 {Each} Refills: 6 Ordered: 02-Feb-2017 ARIEL Bradshaw LPN Start : 24-Jul-2016 End : 02-Feb-2017 Inactive ubidecarenone 100 mg oral capsule (8 sources) take 2 capsules by mouth once daily CoQ-10 100 mg oral capsule 2 daily (100 mg) Active zinc sulfate 220 mg oral tablet (8 sources) take 1 tablet by mouth once daily zinc sulfate 50 mg zinc (220 mg) oral tablet daily (50 mg zinc (220 mg)) Active Problems Active Problems Problem Classification Problem Date Documented Date Episodic/Chronic Abdominal pain (20 sources) Right lower quadrant pain; Translations: [Abdominal pain, acute, right lower quadrant] Resolved: 4 07-12-2015 Episodic Comment on above: deep in pelivs seein g top spotter needs get scope no urinary signs and symptoms Administrative/socia l admission (4 sources) Medical examinations/reports status; Translations: [Education and/or schooling finding] 11-02-2017 Episodic Comment on above: Dr. Sandoval pap and mammogram 2013, colonoscopy 07/08 polyp recheck 5 [id number]=4.4% needs to set up for scope and pap. she will get BD and ammo is on the vitamin D Allergic reactions (20 sources) Eczema; Translations: [Allergy to adhesive] Resolved: 9 11-02-2017 Episodic Comment on above: rubber on top of humberto hose. told use steriod creams refer to enrichment teacher and not want to do yet. Blindness and vision defects (20 sources) Visual disturbance; Translations: [Unspecified visual disturbance] Resolved: 4 07-13-2015 Episodic Cancer of uterus (9 sources) Malignant neoplasm of endometrium of corpus uteri ; Translations: [Malignant neoplasm of endometrium] Onset: 4 07-08-2024 Chronic Cancer of uterus (2 sources) History of malignant neoplasm of endometrium; Translations: [Personal history of malignant neoplasm of other parts of uterus] 03-03-2025 Episodic Conditions associated with dizziness or vertigo (20 sources) Vertigo; Translations: [Vertigo] Resolved: 9 11-02-2017 Episodic Comment on above: peter cunninghami se handout given bonine sleep next two nights over 35 degrees Conduction disorders (12 sources) Incomplete left bundle branch block; Translations: [Left bundle-branch block, unspecified] Onset: 4 07-17-2024 Chronic Diabetes mellitus without complication (20 sources) Impaired fasting glycaemia; Translations: [Impaired fasting glucose] Resolved: 0 11-02-2017 Episodic Comment on above: normal Disorders of lipid metabolism (20 sources) Mixed hyperlipidemia; Translations: [Hypertriglyceridemia] 11-02-2017 Chronic Comment on above: reveiwed with patien t recent tests ffrom 6-12 with her andup. will recheck reveiwed with patien t recent tests and out of goal. when walking 6-17 much bettter. bv screening if plague then would do statin she wnats to go back on the walking alot when better. belviq not work because emotional eater reveiwed with patien t and much better with exercise and at goal Essential hypertension (20 sources) Hypertensive disorder; Translations: [Hypertension] Onset: 4 11-02-2017 Chronic Comment on above: on lisinopril, norva sc, hctz and lopressor high here today over 130/80's willcheck at home. Genitourinary symptoms and ill-defined conditions (20 sources) Proteinuria; Translations: [Proteinuria] Resolved: 4 05-01-2014 Episodic Comment on above: micro check DM keep BP down on arb. Headache; including migraine (20 sources) Headache; Translations: [Acute headache] Resolved: 9 11-02-2017 Episodic Heart valve disorders (17 sources) Heart murmur; Translations: [Heart murmur] Onset: 5 07-25-2022 Episodic Immunizations and screening for infectious disease (20 sources) Need for prophylactic vaccination and inoculation against influenza; Translations: [Suspected disease caused by 2019-nCoV] Resolved: 1 04-12-2021 Episodic Inflammation; infection of eye (except that caused by tuberculosis or sexually transmitteddisease) (20 sources) Acute conjunctivitis; Translations: [Conjunctivitis, acute] Resolved: 4 09-22-2015 Episodic Menopausal disorders (20 sources) Postmenopausal bleeding; Translations: [Postmenopausal bleeding] Onset: 4 05-08-2024 Chronic Menstrual disorders (20 sources) Menorrhagia; Translations: [Menorrhagia] Resolved: 4 05-01-2014 Chronic Comment on above: Dr. sandoval and had D and C Mood disorders (20 sources) Unspecified mood [affective] disorder; Translations: [Mood disorder] 11-02-2017 Chronic Comment on above: on sclae moderate an xiety adn depression. she is better now that have control. still have some lows points. not like was. on sclae moderate an xiety adn depression. she is better now that have control. 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 Mycoses (20 sources) Onychomycosis; Translations: [Candidiasis of mouth] Resolved: 4 07-20-2015 Episodic Comment on above: will start lamisil Nutritional deficiencies (20 sources) Vitamin D deficiency; Translations: [Vitamin D deficiency] 11-02-2017 Chronic Comment on above: on vitamin D still l ow on 200units so willgo to the 5000units with the vit k2 coming up now almost to goal Osteoarthritis (20 sources) Osteoarthritis; Translations: [Osteoarthritis, unspecified osteoarthritis type, unspecified site] 11-02-2017 Chronic Other connective tissue disease (20 sources) Swelling of lower limb; Translations: [Leg swelling] 04-15-2021 Episodic Other female genital disorders (1 source) Pruritus of vagina; Translations: [Other specified noninflammatory disorders of vagina] 03-03-2025 Episodic Other female genital disorders (1 source) Other specified noninflammatory disorders of vagina; Translations: [Vaginal itching] Onset: 5 Episodic Other inflammatory condition of skin (20 sources) Other specified hypertrophic and atrophic conditions of skin; Translations: [HYPERTROPHIC/ATROPHIC SKIN NEC] Resolved: 4 05-01-2014 Episodic Other lower respiratory disease (20 sources) Cough; Translations: [Cough] Resolved: 4 05-01-2014 Episodic Comment on above: change out acei and will try antihistamine otc if not better cxr and work up more change out acei and will try antihistamine otc daily. talk about heartburn worse at night. do cxr Other nervous system disorders (20 sources) Abnormal gait; Translations: [Abnormal gait] 11-02-2017 Episodic Comment on above: slipping sensation s he think core training and willstart this. not have as much. when tired or URI then bother her the most. slipping sensation b clare withit and psychological. now more psychological. more do better. Other nervous system disorders (1 source) Other acute postprocedural pain; Translations: [Post-op pain] Onset: 4 Episodic Other non-traumatic joint disorders (20 sources) Joint pain; Translations: [Pain in unspecified joint] Resolved: 4 10-07-2015 Episodic Other nutritional; endocrine; and metabolic disorders (20 sources) Hypocalcemia; Translations: [Hypocalcemia] Resolved: 9 11-02-2017 Chronic Other nutritional; endocrine; and metabolic disorders (20 sources) Body mass index 40+ - severely obese; Translations: [BMI 45.0-49.9, adult] Onset: 4 Resolved: 2 11-02-2017 Chronic Comment on above: 48.92 07-24-16 51.6 Other nutritional; endocrine; and metabolic disorders (20 sources) Obesity; Translations: [Obesity] 11-02-2017 Chronic Comment on above: again brought up abo ut plans we can do talk about meds and bariatic surgery. her goal is 10 pounds a month by next new years 100 pounds. plan is core training, walking [id number] steps, she already eliminate fast food. work on limit sugar. again brought up abo ut plans we can do talk about meds and bariatic surgery change jobs so foor nurses. now has treadmill in house will do 1mile bid workign to 10,000 steps. 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 not have a reason not to loose the weight. talk about ketosis diet. sent her info on ketosis. check with insurance about bariacti. hard to maintain a program. not want bariactic d iet. she did ketodiet 250. will go back to ketodiet not want bariactic s urgery. talk to her about wellbutrin has addictionand mood disorder. talkbout diet for lunch. Other nutritional; endocrine; and metabolic disorders (11 sources) Morbid obesity; Translations: [Morbid (severe) obesity due to excess calories] Onset: 4 07-17-2024 Chronic Other screening for suspected conditions (not mental disorders or infectious disease) (20 sources) Imaging of thorax abnormal; Translations: [Abnormal chest x-ray] Onset: 4 Resolved: 4 07-14-2015 Chronic Comment on above: pleural effusion see n on echo done because ekg off. CT scan of chest shows no PE but had infiltrate. even though not alot of infection signs and symptoms treat with atb. cxr repeat and good. no mass or lesion. Other screening for suspected conditions (not mental disorders or infectious disease) (20 sources) Electrocardiogram abnormal; Translations: [Imaging of thorax abnormal] Onset: 4 Resolved: 0 07-12-2015 Episodic Comment on above: for pre op ? anteros eptal infarctsome symptoms of SOB with walking pleural effusion see n on echo done because ekg off. CT scan of chest shows no PE but had infiltrate. even though not alot of infection signs and symptoms treat with atb. cxr repeat and good. no mass or lesion. - neuro state alanna igh but REPEAT IN 1 YEAR 6-18 end of month ?pleural effusion Other skin disorders (20 sources) Eruption; Translations: [Rash] Resolved: 7 02-02-2017 Episodic Comment on above: calamine not help. l otrimin not help. cortisone nhelp some ? contact dermatitis entire left lower le g, red inflamed and swollen looks like stasis dermatitis had fever chills this week. with plane ride. will do doppler. treat atb use compression and cortaid cream Other upper respiratory disease (20 sources) Allergic rhinitis due to other allergen; Translations: [Allergic rhinitis] Chronic Other upper respiratory disease (20 sources) Allergic rhinitis; Translations: [Allergic rhinitis due to other allergen] 11-02-2017 Chronic Other upper respiratory infections (20 sources) Acute sinusitis; Translations: [Sinusitis, acute] Resolved: 0 07-13-2015 Episodic Pneumonia (except that caused by tuberculosis or sexually transmitted disease) (20 sources) Bacterial pneumonia; Translations: [Pneumonia due to other specified bacteria] Resolved: 4 09-01-2015 Episodic Comment on above: focal in posterio me dial segment of the rt lower lobe Residual codes; unclassified (20 sources) Sleep apnea; Translations: [Sleep apnea] 11-02-2017 Chronic Comment on above: cpap started 5-13 an d feel better and more energy Residual codes; unclassified (11 sources) Obstructive sleep apnea syndrome; Translations: [Obstructive sleep apnea (adult) (pediatric)] Onset: 4 07-17-2024 Chronic Residual codes; unclassified (20 sources) Postmenopausal state; Translations: [Postmenopausal (Renamed from Postmenopausal status)] 11-02-2017 Episodic Residual codes; unclassified (20 sources) Family history of ischemic heart disease and other diseases of the circulatory system; Translations: [Family history of coronary arteriosclerosis] 11-02-2017 Episodic Comment on above: both sister and brot her. stress 2011 good. BV screening 2-18 normal no signs and symptoms at all and went over when to call Residual codes; unclassified (2 sources) Chill 04-12-2021 Episodic Comment on above: CHILLS Residual codes; unclassified (20 sources) Current non-smoker ; Translations: [Current nonsmoker (Renamed from Current non-smoker)] 04-15-2021 Episodic Residual codes; unclassified (20 sources) Non-smoker; Translations: [Current nonsmoker (Renamed from Current non-smoker)] 07-25-2022 Episodic Residual codes; unclassified (1 source) Localized edema; Translations: [Bilateral leg edema] Onset: Episodic Residual codes; unclassified (3 sources) Postoperative state; Translations: [Other specified postprocedural states] 07-28-2024 Episodic Spondylosis; intervertebral disc disorders; other back problems (20 sources) Low back pain; Translations: [Backache] Resolved: 11-02-2017 Episodic Comment on above: willwork on core BACK PAIN Sprains and strains (1 source) Strain of back muscle; Translations: [Sprain of unspecified site of back] 01-19-2021 Episodic Unclassified (20 sources) Postmenopausal (Renamed from Postmenopausal status) Unclassified (20 sources) Hypertriglycerides (272.1) Unclassified (20 sources) Pain in joint, site unspecified (719.40) Unclassified (20 sources) Hypertension 401.1 (Renamed from Hypertension (401.0)) Unclassified (20 sources) Current non-smoker ; Translations: [Current nonsmoker (Renamed from Current non-smoker)] 11-02-2017 Unclassified (20 sources) Sinusitis,acute (461.9) Unclassified (20 sources) Unclassified (20 sources) HYPERTROPHIC/ATROPHIC SKIN NEC (701.8) Unclassified (20 sources) WWV V73.21 (Renamed from WWV) Unclassified (20 sources) Arthralgia (719.4) Unclassified (20 sources) Abdominal Pain,RLQ (789.03) Unclassified (20 sources) WWV Unclassified (20 sources) Osteoarthritis- Generalized or Localized, Involving Unspecified Site (715.90) Unclassified (20 sources) Abnormal EKG(794.31) Unclassified (20 sources) Abnormal Chest X-Ray (793.99) Unclassified (20 sources) Abnormal Cardiac Test (794.30) Unclassified (20 sources) BMI 45.0-49.9, adult Unclassified (20 sources) Family history of coronary arteriosclerosis Unclassified (20 sources) Hyperglyceridemia Unclassified (20 sources) Well woman exam Unclassified (20 sources) Onchomycosis (110.1) Unclassified (20 sources) SYMPTOM, APNEA, SLEEP NOS (780.57) Unclassified (20 sources) Osteoarthritis, unspecified osteoarthritis type, unspecified site Unclassified (20 sources) BMI 50.0-59.9, adult Unclassified (20 sources) Abnormal brain MRI Unclassified (20 sources) Screening mammogram, encounter for Unclassified (20 sources) Rash of hands Unclassified (20 sources) Encounter for hepatitis C virus screening test for high risk patient Unclassified (10 sources) Allergy to adhesive Unclassified (1 source) Back strain 01-19-2021 Unclassified (1 source) Suspected COVID-19 virus infection 04-12-2021 Unclassified (8 sources) Rash Unclassified (2 sources) R FLANK PAIN 04-06-2022 Comment on above: R FLANK PAIN Unclassified (1 source) Flank pain, acute 04-06-2022 Past or Other Problems Problem Classification Problem Date Documented Date Episodic/Chronic Benign neoplasm of uterus (19 sources) Subserous leiomyoma of uterus; Translations: [Subserosal leiomyoma of uterus] Onset: 05-16-2024 05-16-2024 Episodic Conditions associated with dizziness or vertigo (15 sources) Conditions associated with dizziness or vertigo Headache; including migraine (20 sources) Headache; including migraine Other connective tissue disease (11 sources) Imaging of thorax abnormal; Translations: [Abnormal chest x-ray] Resolved: 05-01-2014 07-14-2015 Episodic Comment on above: pleural effusion see n on echo done because ekg off. CT scan of chest shows no PE but had infiltrate. even though not alot of infection signs and symptoms treat with atb. cxr repeat and good. no mass or lesion. Pneumonia (except that caused by tuberculosis or sexually transmitted disease) (20 sources) Pneumonia (except that caused by tuberculosis or sexually transmitted disease) Residual codes; unclassified (15 sources) Needs influenza immunization; Translations: [Need for prophylactic vaccination and inoculation against influenza] Resolved: 11-01-2018 11-02-2017 Episodic Residual codes; unclassified (11 sources) Bilateral lower limb edema; Translations: [Localized edema] Onset: 07-17-2024 07-17-2024 Episodic Residual codes; unclassified (1 source) Other specified postprocedural states; Translations: [Post-operative state] Onset: 09-02-2024 Episodic Unclassified (20 sources) Deliveries (Parity); Translations: [Deliveries (Parity)] 11-02-2017 Comment on above: 3 Unclassified (20 sources) Patient encounter status; Translations: [Encounter for general adult medical examination with abnormal findings] Resolved: 09-17-2020 11-02-2017 Comment on above: [facility] 09-13 Dr. Barlow er pap 09-13, colonoscopy 07/08 polyp recheck 5 years needs to set up for scope and pap. she will get BD and ammo soone Dr. Sandoval pap and mammogram 2013, colonoscopy 07/08 polyp recheck 5 [id number]=2.4% needs to set up for scope and pap. she will get BD and ammo is on the vitamin D Dr. Sandoval pap09-13 and mammogram 2013, colonoscopy 07/08 polyp recheck 5 year, Unclassified (20 sources) CANDIDIASIS, MOUTH (THRUSH) (112.0) Unclassified (20 sources) CONJUNCTIVITIS, ACUTE NOS (372.00) Unclassified (20 sources) Pregnancies (); Translations: [Pregnancies ()] 11-02-2017 Comment on above: 3 Unclassified (20 sources) Abnormal chest x-ray - ? Sarcoid Resolved: 05-01-2014 05-01-2014 Unclassified (20 sources) Unspecified Diagnosis Resolved: 05-01-2014 05-01-2014 Unclassified (20 sources) Pre-operative examination, unspecified (V72.84) Unclassified (15 sources) Preprocedural examination done; Translations: [Pre-operative examination] Resolved: 05-01-2014 06-01-2015 Unclassified (16 sources) Colon cancer screening (Renamed from Encounter for screening for malignant neoplasm of colon) Results Test Name Value Interpretation Reference Range Facility Echo Completeon 05-08-2025 Echo Complete [facility] [id number] [place] [address] Echo Complete 05/08/25 1315 MR#: [id number] Acct: [id number] Name: SANTA RAHMAN Rep #: [id number] : [id number] From: Deb Jacques MD Attending Dr: Dr. Adolfo Osborn MD Status: REG CLI Ordering Dr: Adolfo Osborn MD Date: 05/08/25 Location: [facility] Sex: F C Admitted: Reason For Study Reason For Study: MURMUR Procedure This was a 2D Doppler, Color Flow transthoracic echocardiogram. Exam performed in department. Left Ventricle Normal LV size. Mild concentric left ventricular hypertrophy. Left ventricular systolic function is normal. The left ventricular ejection fraction is 65 %. Stage 1 diastolic dysfunction. Right Ventricle Normal RV size. Normal systolic function. Atria There is moderate biatrial dilatation. Mitral Valve Mild mitral annular calcification. Mild (1+) mitral valve insufficiency. Tricuspid Valve Normal tricuspid valve. Mild (1+) tricuspid valve insufficiency. Pulmonary artery systolic pressure is 48 mmHg. Aortic Valve Trisinus/trileaflet aortic valve. Aortic sclerosis, no stenosis. There is no aortic stenosis. Trivial aortic valve insufficiency. Pulmonic Valve The pulmonic valve is not well visualized. Trivial pulmonic valve insufficiency. Great Vessels Mildly dilated aortic root. Pericardium/Pleural Trivial pericardial effusion. There are no echocardiographic indications of cardiac tamponade. MMode/2D Measurements Calculations LVIDd: 5.3 cm IVSd: 1.3 cm Ao root diam: 4.1 cm LVIDs: 2.7 cm LVPWd: 1.4 cm RVDd: 3.5 cm FS: 49.3 % LAV(MOD-bp): 101.4 ml LVAd ap4: 32.4 cm2 SV(MOD-sp4): 75.1 ml LAV(MOD-bp) Indexed: 39.7 ml/m2 LVLd ap4: 8.0 cm SI(MOD-sp4): 29.4 ml/m2 LAV(MOD-sp2): 86.0 ml EDV(MOD-sp4): 110.0 ml LAV(MOD-sp4): 113.2 ml EDV(sp4-el): 111.6 ml LVAs ap4: 16.2 cm2 LVLs ap4: 6.7 cm ESV(MOD-sp4): 34.9 ml ESV(sp4-el): 33.1 ml EF(MOD-sp4): 68.3 % EF(sp4-el): 70.4 % SV(sp4-el): 78.5 ml LA A4 area: 30.0 cm2 LA dimension(2D): 4.4 cm RA A4 area: 25.3 cm2 TAPSE: 1.9 cm Doppler Measurements Calculations MV E max roberto: 107.4 cm/sec Lat Peak E' Roberto: 12.9 cm/sec Med Peak E' Roberto: 56.3 cm/sec E/E' lat: 8.3 E/E' med: 1.9 Ao V2 max: 130.0 cm/sec LV V1 max: 96.3 cm/sec TR max roberto: 287.1 cm/sec Ao max P.8 mmHg LV V1 max P.7 mmHg TR max P.0 mmHg Ao V2 mean: 93.9 cm/sec LV V1 mean P.2 mmHg Ao mean P.0 mmHg LV V1 mean: 70.2 cm/sec Ao V2 VTI: 30.8 cm LV V1 VTI: 23.1 cm AV (velocity ratio): 0.75 ECHO/Echo Complete Interpretation Summary The left ventricular ejection fraction is 65 %. Stage 1 diastolic dysfunction. Mild concentric left ventricular hypertrophy. There is moderate biatrial dilatation. Mild mitral annular calcification. Mild (1+) mitral valve insufficiency. Aortic sclerosis, no stenosis. Mildly dilated aortic root. ___ Ordering Physician: Adolfo Osborn Referring Physician: Adolfo Osborn Performed By: Keyona Meraz RCS 05/08/25 1448 Date Deb Jacques MD CC: Dr. Adolfo Osborn MD Date Dictated: 05/08/25 1315 Date Transcribed: 05/08/25 1448 Tobacco Prizer: Signed [facility] Breast imaging reportOrdered By: Ary Pinto on 04-20-2025 Study report [facility] Imaging Services [address] [place] [address] SCRN MAMM (CAD)W/DORA BILAT MR#: [id number] Acct: [id number] Name: SANTA RAHMAN Rep #: [id number] : 1955 F 69 From: Jared Pinto DO PCP: Dr. Adolfo Osborn MD Status: MANUEL MOYA Study:SCRN MAMM (CAD)W/DORA BILAT Date of Exa m: 04/20/25 Exam# [id number] Ordering Dr: Adolfo Osborn MD EXAM: SCRN MAMM (CAD)W/DORA BILAT DATE: 04/20/2025 CLINICAL HISTORY: F, Age 69 y/o , BILAT BRST SCREEN DORA ADD-ON; DUE AFTER APRIL 20 TECHNIQUE: SCRN MAMM (CAD)W/DORA BILAT COMPARISON: Prior exam(s) dated 04/17/2024. FINDINGS: TISSUE DENSITY: The breasts are almost entirely fatty. Bilateral Breast Mammographic Findings: Benign-appearing round microcalcifications are seen in both breasts. No suspicious masses, suspicious clustered microcalcifications, architectural distortion or secondary signs of malignancy identified in either breast. Stable nodular densities are seen in both breasts. BI/SCRN MAMM (CAD)W/DORA BILAT IMPRESSION: Stable benign-appearing screening mammogram. OVERALL FINAL ASSESSMENT BI-RADS 2: BENIGN RECOMMENDATION: Routine annual follow-up in 1 Year A letter with findings and recommendations will be mailed to the patient. Reading Location: [facility] CC: Dr. Adolfo Osborn MD ~ Tobacco Prizer: Signed [facility] SCRN MAMM (CAD)W/DORA BILATo n 04-20-2025 SCRN MAMM (CAD)W/DORA BILAT [facility] Imaging Services [address] [place] [address] SCRN MAMM (CAD)W/DORA BILAT MR#: [id number] Acct: [id number] Name: SANTA RAHMAN Rep #: [id number] : 1955 F 69 From: Ary Paez PCP: Dr. Adolfo Osborn MD Status: REG CLI Study: SCRN MAMM (CAD)W/DORA BILAT Date of Exam: 03/28 01/18 Exam# [id number] Ordering Dr: Adolfo Osborn MD EXAM: SCRN MAMM (CAD)W/DORA BILAT DATE: 04/20/2025 CLINICAL HISTORY: F, Age 69 y/o , BILAT BRST SCREEN DORA ADD-ON; DUE AFTER APRIL 20 TECHNIQUE: SCRN MAMM (CAD)W/DORA BILAT COMPARISON: Prior exam(s) dated 04/17/2024. FINDINGS: TISSUE DENSITY: The breasts are almost entirely fatty. Bilateral Breast Mammographic Findings: Benign-appearing round microcalcifications are seen in both breasts. No suspicious masses, suspicious clustered microcalcifications, architectural distortion or secondary signs of malignancy identified in either breast. Stable nodular densities are seen in both breasts. BI/SCRN MAMM (CAD)W/DORA BILAT IMPRESSION: Stable benign-appearing screening mammogram. OVERALL FINAL ASSESSMENT BI-RADS 2: BENIGN RECOMMENDATION: Routine annual follow-up in 1 Year A letter with findings and recommendations will be mailed to the patient. Reading Location: [facility] CC: Dr. Adolfo Osborn MD Tobacco Prizer: Signed Normal [facility] BACTERIAL VAGINOSIS NAATon 0 03-03-2025 Lactobacillus crispatus+gasseri+beth senii + Gardnerella vaginalis + Atopobium vaginae rRNA VIKTORIA+probe Ql (Vag fld) Not detected Normal Not detected [facility] Comment on above: Order Comment: Speci men Type: SWAB Ordering Facility: [facility] Address: [address] [place] [address] Performed By: #### B VAMP, CVTV #### [facility] CLIA [id number] [address] [place] [address] SHAHLA THANH/TRICHOMONAS NAATon 0 03-03-2025 C. glabrata RNA VIKTORIA+probe Ql (Vag fld) Not detected Normal Not detected [facility] Comment on above: Order Comment: Speci men Type: SWAB Ordering Facility: [facility] Address: [address] [place] [address] Performed By: #### B VAMP, CVTV #### [facility] CLIA [id number] [address] [place] [address] Thanh sp DNA VIKTORIA+probe Ql (Vag fld) Detected Abnormal Not detected [facility] Comment on above: Order Comment: Speci men Type: SWAB Ordering Facility: [facility] Address: [address] [place] [address] Result Comment: The Thanh species group target includes C. albicans, C. tropicalis, C. parapsilosis, and C. dubliniensis. Performed By: #### Mina VAMP, CVTV #### [facility] CLIA [id number] [address] [place] [address] T. vaginalis DNA VIKTORIA+probe Ql (Unsp spec) Not detected Normal Not detected [facility] Comment on above: Order Comment: Speci men Type: SWAB Ordering Facility: [facility] Address: [address] [place] [address] Performed By: #### Mina VAMP, CVTV #### [facility] CLIA [id number] [address] [place] [address] OF SHAHLA CNOVSPon 03-03-2025 CNOVSP Visit (SP) Office (G YNML) ----- SANTA RAHMAN ([id number]) 1955 F Date Time Provider Department 03/03/25 10:30 AM DEJA NUNEZ GYN During your visit today, we recorded the following information about you: Pulse Respiration Blood pressure Weight 60/minute 18/minute 163/96 171.1 kg Deja Nunez APRN.CNP 03/03/2025 11:04 AM Signed DATE OF SERVICE: 03/03/25 Reason for visit: Surveillance visit PROBLEM: Stage IA grade 2 endometrial cancer HPI: Ms. Rahman is a 68 year old female who has a past medical history of Abnormal ultrasound of endometrium (05/16/2024), Essential hypertension, Obesity, PMB (postmenopausal bleeding) (05/16/2024), Primary generalized (osteo)arthritis, Sleep apnea, and Thickened endometrium (05/16/2024). Patient reports started having postmenopausal bleeding intermittently since August 2023. Reports light spotting for a few days. Santa presented to [facility] with complaints of PMB. Thickened endometrium noted on US. 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 Patient presents to [facility] for further evaluation. Patient reports that currently still having some spotting, though very light. SURGERY/PROCEDURE(S): 07/21/2024 Total laparoscopic hysterectomy with bilateral salpingo-oophorectomy Uterus >250g (22 modifier, significant additional effort required due to BMI 61 and large fibroid uterus requiring minilaparotomy for specimen removal) Bilateral cervix injection of ICG for sentinel lymph node mapping Bilateral pelvic sentinel lymph node biopsy cystoscopy IMAGIN05/15/24 US: Impression The uterus is anteverted and measures 119 mm x 88 mm x 132 mm. The endometrium is heterogenous, thickened with irregular cystic areas nd measures 13 mm. 1. Right lateral anterior wall subserous fibroid measures 69 mm x 91 mm x 68 mm. 2. Left lateral posterior wall subserous fibroid measures 53 mm x 59 mm x 50 mm. the right ovary is not visualized. The left ovary is not visualized. There is no free fluid visualized. 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 07/21/2024: FINAL DIAGNOSIS A. Uterus with cervix, right and left fallopian tubes, and ovaries, hysterectomy and bilateral salpingo-oophorectomy: - Cervix: No significant pathologic abnormality. 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 - Myometrium: Leiomyomas with degenerative changes. - Serosa: No significant pathologic abnormality. - Right ovary: Epithelial inclusion glands. - Left ovary: Small serous cystadenofibroma. - Bilateral fallopian tubes: Two fimbriated fallopian tubes showing no significant pathologic abnormality. B. [place] lymph node, left, biopsy: - One lymph node, negative for carcinoma (0/1); see comment. C. [place] lymph node, right, biopsy: - One lymph node, negative for carcinoma (0/1); see comment. HISTORIES: PAST GYNECOLOGIC HISTORY: OB History T0 L3 (all vaginal) SAB0 IAB0 Ectopic0 Multiple0 Live Births0 LMP: No LMP recorded. Patient is postmenopausal. Hormonal contraceptives: Yes, in 20s How lon years. HRT use: No. History of abnormal pap: No. Last pap: 06/19/24 negative Last HPV: 06/19/24 negative PAST SURGICAL HISTORY Procedure Laterality Date HYSTEROSCOPY, DIAGNOSTIC (SEPARATE hysteroscopy dANDc PAST MEDICAL HISTORY Diagnosis Date Abnormal ultrasound of endometrium 05/16/2024 Essential hypertension Obesity PMB (postmenopausal bleeding) 05/16/2024 Primary generalized (osteo)arthritis Sleep apnea Thickened endometrium 05/16/2024 FAMILY HISTORY Problem Relation Age of Onset Heart Attack Mother Macular Degen Mother Cataract Mother Uterine Fibroids Mother Arthritis Mother Obesity Mother Uterine Cancer Mother Arthritis Father Hearing Loss Father Inherited Eye Disease Father Hypertension Father other (atrial fib) Sister Uterine Fibroids Sister Heart Attack Brother other (atrial fib) Brother Colon Cancer Maternal Grandmother Obesity Paternal Grandmother Family history of breast, ovarian, uterine or colon cancer: No Family history of VTE: No SOCIAL HISTORY Social History Tobacco Use Smoking status: Never Smokeless tobacco: Never Vaping Use Vaping status: Never Used Substance Use Topics Alcohol use: Not Currently Drug use: Never Occupation: retired, RN Marital Status: , Andrew HEALTH MAINTENANCE: Last mammogram: 04/2024 Last colonoscopy: due for one this year AD (more content not included)... [facility] CNOVSPon 09-02-2024 CNOVS Visit (SP) Office (G YNML) ----- SANTA RAHMAN ([id number]) 1955 F Date Time Provider Department 09/02/24 11:30 AM DEJA NUNEZ GYN During your visit today, we recorded the following information about you: Temperature Pulse Respiration Blood pressure 98.9 degrees 60/minute 18/minute 184/94 Weight 168.8 kg Deja Nunez APRN.CNP 09/02/2024 12:16 PM Signed DATE OF SERVICE: 09/02/2024 Reason for visit: post op follow up, 6 week check PROBLEM: Stage IA grade 2 endometrial cancer HPI: Ms. Rahman is a 68 year old female who has a past medical history of Abnormal ultrasound of endometrium (05/16/2024), Essential hypertension, Obesity, PMB (postmenopausal bleeding) (05/16/2024), Primary generalized (osteo)arthritis, Sleep apnea, and Thickened endometrium (05/16/2024). Patient reports started having postmenopausal bleeding intermittently since August 2023. Reports light spotting for a few days. Santa presented to [facility] with complaints of PMB. Thickened endometrium noted on US. 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 Patient presents to [facility] for further evaluation. Patient reports that currently still having some spotting, though very light. SURGERY/PROCEDURE(S): 07/21/2024 Total laparoscopic hysterectomy with bilateral salpingo-oophorectomy Uterus >250g (22 modifier, significant additional effort required due to BMI 61 and large fibroid uterus requiring minilaparotomy for specimen removal) Bilateral cervix injection of ICG for sentinel lymph node mapping Bilateral pelvic sentinel lymph node biopsy cystoscopy IMAGIN05/15/24 US: Impression The uterus is anteverted and measures 119 mm x 88 mm x 132 mm. The endometrium is heterogenous, thickened with irregular cystic areas nd measures 13 mm. 1. Right lateral anterior wall subserous fibroid measures 69 mm x 91 mm x 68 mm. 2. Left lateral posterior wall subserous fibroid measures 53 mm x 59 mm x 50 mm. the right ovary is not visualized. The left ovary is not visualized. There is no free fluid visualized. 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 07/21/2024: FINAL DIAGNOSIS A. Uterus with cervix, right and left fallopian tubes, and ovaries, hysterectomy and bilateral salpingo-oophorectomy: - Cervix: No significant pathologic abnormality. 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 - Myometrium: Leiomyomas with degenerative changes. - Serosa: No significant pathologic abnormality. - Right ovary: Epithelial inclusion glands. - Left ovary: Small serous cystadenofibroma. - Bilateral fallopian tubes: Two fimbriated fallopian tubes showing no significant pathologic abnormality. B. [place] lymph node, left, biopsy: - One lymph node, negative for carcinoma (0/1); see comment. C. [place] lymph node, right, biopsy: - One lymph node, negative for carcinoma (0/1); see comment. HISTORIES: PAST GYNECOLOGIC HISTORY: OB History T0 L3 (all vaginal) SAB0 IAB0 Ectopic0 Multiple0 Live Births0 LMP: No LMP recorded. Patient is postmenopausal. Hormonal contraceptives: Yes, in 20s How lon years. HRT use: No. History of abnormal pap: No. Last pap: 06/19/24 negative Last HPV: 06/19/24 negative PAST SURGICAL HISTORY Procedure Laterality Date HYSTEROSCOPY, DIAGNOSTIC (SEPARATE hysteroscopy dANDc PAST MEDICAL HISTORY Diagnosis Date Abnormal ultrasound of endometrium 05/16/2024 Essential hypertension Obesity PMB (postmenopausal bleeding) 05/16/2024 Primary generalized (osteo)arthritis Sleep apnea Thickened endometrium 05/16/2024 FAMILY HISTORY Problem Relation Age of Onset Heart Attack Mother Macular Degen Mother Cataract Mother Uterine Fibroids Mother Arthritis Mother Obesity Mother Uterine Cancer Mother Arthritis Father Hearing Loss Father Inherited Eye Disease Father Hypertension Father other (atrial fib) Sister Uterine Fibroids Sister Heart Attack Brother other (atrial fib) Brother Colon Cancer Maternal Grandmother Obesity Paternal Grandmother Family history of breast, ovarian, uterine or colon cancer: No Family history of VTE: No SOCIAL HISTORY Social History Tobacco Use Smoking status: Never Smokeless tobacco: Never Vaping Use Vaping status: Never Used Substance Use Topics Alcohol use: Not Currently Drug use: Never Occupation: retired, RN Marital Status: , Andrew HEALTH MAINTENANCE: Last mammogram: 04/2024 (more content not included)... [facility] CNOVSPon 08-14-2024 CNOVSP Visit (SP) Office (G YNML) ----- SANTA RAHMAN ([id number]) 1955 F Date Time Provider Department 08/14/24 10:45 AM SERA REDDY GYNSHORTY During your visit today, we recorded the following information about you: Temperature Pulse Respiration Blood pressure 98.3 degrees 60/minute 18/minute 178/95 Weight 166.9 kg Sera Reddy MD 08/14/2024 12:34 PM Signed DATE OF SERVICE: 08/14/2024 Reason for visit: post op follow up PROBLEM: Stage IA grade 2 endometrial cancer HPI: Ms. Rahman is a 68 year old female who has a past medical history of Abnormal ultrasound of endometrium (05/16/2024), Essential hypertension, Obesity, PMB (postmenopausal bleeding) (05/16/2024), Primary generalized (osteo)arthritis, Sleep apnea, and Thickened endometrium (05/16/2024). Patient reports started having postmenopausal bleeding intermittently since August 2023. Reports light spotting for a few days. Santa presented to [facility] with complaints of PMB. Thickened endometrium noted on US. 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 Patient presents to [facility] for further evaluation. Patient reports that currently still having some spotting, though very light. SURGERY/PROCEDURE(S): 07/21/2024 Total laparoscopic hysterectomy with bilateral salpingo-oophorectomy Uterus >250g (22 modifier, significant additional effort required due to BMI 61 and large fibroid uterus requiring minilaparotomy for specimen removal) Bilateral cervix injection of ICG for sentinel lymph node mapping Bilateral pelvic sentinel lymph node biopsy cystoscopy IMAGIN05/15/24 US: Impression The uterus is anteverted and measures 119 mm x 88 mm x 132 mm. The endometrium is heterogenous, thickened with irregular cystic areas nd measures 13 mm. 1. Right lateral anterior wall subserous fibroid measures 69 mm x 91 mm x 68 mm. 2. Left lateral posterior wall subserous fibroid measures 53 mm x 59 mm x 50 mm. the right ovary is not visualized. The left ovary is not visualized. There is no free fluid visualized. 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 07/21/2024: FINAL DIAGNOSIS A. Uterus with cervix, right and left fallopian tubes, and ovaries, hysterectomy and bilateral salpingo-oophorectomy: - Cervix: No significant pathologic abnormality. 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 - Myometrium: Leiomyomas with degenerative changes. - Serosa: No significant pathologic abnormality. - Right ovary: Epithelial inclusion glands. - Left ovary: Small serous cystadenofibroma. - Bilateral fallopian tubes: Two fimbriated fallopian tubes showing no significant pathologic abnormality. B. [place] lymph node, left, biopsy: - One lymph node, negative for carcinoma (0/1); see comment. C. [place] lymph node, right, biopsy: - One lymph node, negative for carcinoma (0/1); see comment. HISTORIES: PAST GYNECOLOGIC HISTORY: OB History T0 L3 (all vaginal) SAB0 IAB0 Ectopic0 Multiple0 Live Births0 LMP: No LMP recorded. Patient is postmenopausal. Hormonal contraceptives: Yes, in 20s How lon years. HRT use: No. History of abnormal pap: No. Last pap: 06/19/24 negative Last HPV: 06/19/24 negative PAST SURGICAL HISTORY Procedure Laterality Date HYSTEROSCOPY, DIAGNOSTIC (SEPARATE hysteroscopy dANDc PAST MEDICAL HISTORY Diagnosis Date Abnormal ultrasound of endometrium 05/16/2024 Essential hypertension Obesity PMB (postmenopausal bleeding) 05/16/2024 Primary generalized (osteo)arthritis Sleep apnea Thickened endometrium 05/16/2024 FAMILY HISTORY Problem Relation Age of Onset Heart Attack Mother Macular Degen Mother Cataract Mother Uterine Fibroids Mother Arthritis Mother Obesity Mother Uterine Cancer Mother Arthritis Father Hearing Loss Father Inherited Eye Disease Father Hypertension Father other (atrial fib) Sister Uterine Fibroids Sister Heart Attack Brother other (atrial fib) Brother Colon Cancer Maternal Grandmother Obesity Paternal Grandmother Family history of breast, ovarian, uterine or colon cancer: No Family history of VTE: No SOCIAL HISTORY Social History Tobacco Use Smoking status: Never Smokeless tobacco: Never Vaping Use Vaping status: Never Used Substance Use Topics Alcohol use: Not Currently Drug use: Never Occupation: retired, RN Marital Status: , Andrew HEALTH MAINTENANCE: Last mammogram: 04/2024 Last c (more content not included)... [facility] 07-31-2024 CNPN Telephone (GYNML) ----- SANTA RAHMAN ([id number]) 1955 F Date Time Provider Department 07/31/24 DEJA NUNEZ GYN During your visit today, we recorded the following information about you: Deja Nunez APRN.STORAGE MANAGER 07/31/2024 6:28 PM Signed Called Mica to discuss her pathology results: 07/21/2024 FINAL DIAGNOSIS A. Uterus with cervix, right and left fallopian tubes, and ovaries, hysterectomy and bilateral salpingo-oophorectomy: - Cervix: No significant pathologic abnormality. 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 - Myometrium: Leiomyomas with degenerative changes. - Serosa: No significant pathologic abnormality. - Right ovary: Epithelial inclusion glands. - Left ovary: Small serous cystadenofibroma. - Bilateral fallopian tubes: Two fimbriated fallopian tubes showing no significant pathologic abnormality. B. [place] lymph node, left, biopsy: - One lymph node, negative for carcinoma (0/1); see comment. C. [place] lymph node, right, biopsy: - One lymph node, negative for carcinoma (0/1); see comment. Diagnosis Comment A - Select slides of this case (A4, A5, A7, and A16-18) were reviewed at the departmental gynecologic consensus conference on 07/29/24, and Allison Vuong, Elis Tinsley, and Vasquez agree. B, C - According to our institutional sentinel lymph node protocol, immunohistochemical stains for AE1/3 and additional levels were performed and evaluated at the [facility] using blocks B1, B2, C1, C2, and C3. Levels and cytokeratin immunohistochemical stains are all negative for carcinoma. Laboratory Developed Test (LDT) Disclaimer: Performance characteristics of immunohistochemical, immunofluorescent and chromogenic in-situ hybridization tests have been determined by the performing laboratory within [facility] Medicine Department ([facility], [facility], [facility], [facility], [facility], [facility], or [facility]) in a manner consistent with CLIA requirements. One or more of these tests have not been cleared or approved by the FDA. [facility] is regulated under CLIA as qualified to perform high-complexity testing. These tests are used for clinical purposes. They should not be regarded as investigational or for research. Positive and negative controls stain appropriately. Block for additional Biomarkers/Molecular studies A7 Synoptic Report ENDOMETRIUM 8th Edition - Protocol posted: 08/08/2023UTERUS, ENDOMETRIUM, CARCINOMA: RESECTION - All Specimens SPECIMEN Procedure Total hysterectomy and bilateral salpingo-oophorectomy Hysterectomy Type Not specified Specimen Integrity Intact TUMOR Tumor Site Endometrium Tumor Size Greatest Dimension (Centimeters): 3.5 cm Histologic Type Endometrioid carcinoma, NOS Histologic Grade FIGO grade 2 Two-Tier Grading System Low grade (encompassing FIGO 1 and 2) Myometrial Invasion Not identified Adenomyosis Not identified Uterine Serosa Involvement Not identified Lower Uterine Segment Involvement Not identified Cervical Stromal Involvement Not identified Other Tissue / Organ Involvement Not identified Peritoneal / Ascitic Fluid Not submitted / unknown Lymphatic and / or Vascular Invasion Not identified MARGINS Margin Status All margins negative for invasive carcinoma REGIONAL LYMPH NODES Regional Lymph Node Status All regional lymph nodes negative for tumor cells Lymph Nodes Examined Total Number of Pelvic Nodes Examined 2 Number of Pelvic [place] Nodes Examined 2 Total Number of Para-aortic Nodes Examined 0 pTNM CLASSIFICATION (AJCC 8th Edition) Reporting of pT, pN, and (when applicable) pM categories is based on information available to the pathologist at the time the report is issued. As per the AJCC (Chapter 1, 8th Ed.) it is the managing physician?s responsibility to establish the final pathologic stage based upon all pertinent information, including but potentially not limited to this pathology report. pT Category pT1a pN Category pN0 N Suffix (sn) FIGO STAGE FIGO Stage IA1 FIGO Modified Classification mNSMP ADDITIONAL FINDINGS Additional Findings leiomyomas, serous cystadenofibroma Will continue with surveillance visits every 6 months. Follow up post op as scheduled. All questions answered at this time. Deja Nunez APRN.STORAGE MANAGER July 31, 2024 6:28 PM Allergies As of Date: 07/31/2024 (No Known Allergies) Date Reviewed: 07/21/2024 Reviewed by: Rachel Trivedi RN - Fully Assessed Reason for Visit: Results [95] Primary Visit Diagnosis:Endometrial (more content not included)... Normal [facility] ANES POSTPROC EVALon 024 ANES POSTPROC EVAL HNO ID: [id number] Author: FAUSTINO OCHOA MD Service: ? Author Type: Anesthesiologist Type: Anesthesia Postprocedure Evaluation Filed: 07/21/2024 12:54 Note Text: POST ANESTHESIA EVALUATION NOTE : 1955 Procedure Summary Date: 07/21/24 Room / Location: [address] [facility] Anesthesia Start: 719 Anesthesia Stop: 1224 Procedures: LAPAROSCOPIC HYSTERECTOMY TOTAL FOR UTERUS 250 G OR LESS W/REMOVAL TUBE(S) AND/OR OVARY(S) (Bilateral: Pelvis) INTRAOPERATIVE ID OF SENTINEL LYMPH NODE(S) INCL'D INJECTION OF NON-RAD DYE WHEN PERFORMED (Bilateral: Pelvis) CYSTOSCOPY Diagnosis: Endometrial cancer (HCC) (Endometrial cancer (HCC) [C54.1]) Surgeons: Sera Reddy MD Responsible Provider: Faustino Ochoa MD Anesthesia Type: general ASA Status: 3 Anesthesia Type: general Airway Type: ETT Last Vitals Vitals Value Taken Time BP 155/74 07/21/24 1245 Temp 36.1 ?C (97 ?F) 07/21/24 1225 Pulse 58 07/21/24 1252 Resp 25 07/21/24 1252 SpO2 91 % 07/21/24 1252 Vitals shown include unfiled device data. Post Anesthesia Patient Status Patient Evaluation: PACU. PACU/ICU Patient Condition: stable. Anticipated Disposition: phase 2 then home. Neurological Status: sleepy but arousable. Pulmonary Status: breathing comfortably on supplemental oxygen Airway Control: returned to baseline unsupported. Cardiovascular Status: stable. Pain Management: clinically adequate Postoperative Hydration: acceptable. Intraoperative Events: no significant anesthesia events Post Operative Nausea/Vomiting Status: no significant post operative nausea or vomiting Recommendation: further care per PACU/ICU/floor team. Anesthesia Observations No notable events were associated with this procedure. Documented by Juan Carlos Perez SRNA 07/21/2024 12:32 PM EST SIGNATURE: Faustino Ochoa MD PATIENT NAME: Santa Rahman DATE: July 21, 2024 TIME: 12:53 PM CSN: [id number] Normal [facility] ANES PRE-OPon 07-21-2024 ANES PRE-OP HNO ID: [id number] Author: OCTAVIA HONG MD Service: ? Author Type: Anesthesiologist Type: Anesthesia Preprocedure Evaluation Filed: 07/21/2024 07:01 Note Text: ANESTHESIOLOGY DAY OF SURGERY NOTE : 1955 Procedure Information Date/Time: 07/21/24729 Procedures: LAPAROSCOPIC HYSTERECTOMY TOTAL FOR UTERUS 250 G OR LESS W/REMOVAL TUBE(S) AND/OR OVARY(S) (Bilateral: Pelvis) INTRAOPERATIVE ID OF SENTINEL LYMPH NODE(S) INCL'D INJECTION OF NON-RAD DYE WHEN PERFORMED (Bilateral: Pelvis) Location: MAIN OR [facility] Surgeons: Sera Reddy MD Estimated body mass index is 61.07 kg/m? as calculated from the following: Height as of this encounter: 165.1 cm (5' 5). Weight as of this encounter: 166.5 kg (367 lb). Most recent hematocrit and potassium results: Hematocrit 46.9 07/17/2024 Potassium 4.0 07/17/2024 Relevant Problems ANESTHESIA (+) MORGAN (obstructive sleep apnea) CARDIO (+) Essential hypertension, benign (+) Incomplete left bundle branch block (LBBB) PULMONARY (+) MORGAN (obstructive sleep apnea) I - PHYSICAL EVALUATION AIRWAY Patient intubated: No. Tracheostomy tube not present Mallampati: III. TM distance: >3 FB. Neck ROM: full ROM without neurological symptoms. Mouth opening: adequate. Short neck: no. Thick neck: yes Russell present: no Lip Bite Test: I Microretrognathia/Microna gthia/Recessed Chin: No DENTAL Dental findings: teeth intact. Additional exam findings: no II - ANESTHESIA PLAN ASA Score: 3 Anesthetic Plan: general Airway type: ETT The patient is not a current smoker. NPO Status: adequate Beta Marty Monitoring Plan Monitoring plan: standard ASA. Post Procedure Analgesic Plan Postoperative analgesic plan: per surgical service. Informed Consent Anesthetic risks, benefits, alternatives, personnel and consent discussed: yes. Patient / Responsible Republican agrees to proceed: yes Patient / Surrogate agrees to blood products: Yes DNR status not reviewed with patient and/or family prior to surgery. Significant changes in the patient condition since the History and Physical, not otherwise documented in primary service progress note: no. Potential Anesthesia issues that may suggest increased risk of complications or contraindication to planned procedure: none. Discussed the possibility of lip / dental damage: yes Vitals Value Taken Time BP 194/84 07/21/24621 Pulse 74 07/21/24621 Resp 18 07/21/24621 Temp 37.1 ?C (98.8 ?F) 07/21/24621 SpO2 100 % 07/21/24621 No current facility-administered medications on file as of 07/21/2024. Outpatient Medications as of 07/21/2024 Medication Sig amLODIPine (NORVASC) 10 mg tablet Take 10 mg by mouth once daily. Colestipol HCl 5 gram granules Take 5 g by mouth once daily. metoprolol tartrate, short acting, (LOPRESSOR) 50 mg tablet Take 100 mg by mouth two times a day. cetirizine (ZYRTEC) 10 mg tablet Take 10 mg by mouth once daily. hydroCHLOROthiazide 25 mg tablet Take 25 mg by mouth once daily. losartan (COZAAR) 100 mg tablet 100 mg once daily. I have interviewed and examined the patient. I have reviewed the medical record and/or the pre-anesthesia evaluation, pertinent labs, and test results. This contains updated information obtained within 48 hours of Surgery/Procedure. SIGNATURE: Octavia Hong MD PATIENT NAME: Santa Rahman DATE: July 21, 2024 TIME: 7:00 AM CSN: [id number] Normal [facility] BRIEF OP NOTon 07-21-2024 BRIEF OP NOT HNO ID: [id number] Author: BRENTON SEGURA MD Service: Gynecology Oncology Author Type: Fellow Type: Brief Op Note Filed: 07/21/2024 11:33 Note Text: BRIEF OPERATIVE / PROCEDURE NOTE LOG ID: [id number] SURGERY/PROCEDURE DATE: 07/21/2024 INCISION/PROCEDURE START TIME: 8:26 AM INCISION CLOSE/PROCEDURE END TIME: SURGEON(S)/PROCEDURALIST( S) AND ANIMAL REHABILITATOR(S): Surgeons and Role: * Sera Reddy MD - Primary * Timothy De La Garza MD - Resident - Assisting * Brenton Segura MD - Fellow No Additional Staff SURGERY/PROCEDURE(S): EUA Total laparoscopic hysterectomy bilateral salpingo-oophorectomy Pelvic [place] lymph node dissection Minilaparotomy Cystoscopy ANESTHESIA: General FINDINGS: Large, wide, fibroid uterus, ~14 cm. Right sentinel node mapped along external iliac. Left sentinel node with channels approaching a slightly green node along the external iliac. No upper abdominal lesions. No adhesions. ~3cm umbilicual hernia. Cystoscopy with brisk bilateral ureteral jets. ESTIMATED BLOOD LOSS: 25 mls UOP 275 IVF 1000 crystalloid SPECIMENS: ID Type Source Tests Collected by Time Destination A : Tissue Uterus, Cervix, Bilateral Fallopian Tubes, and Bilateral Ovaries SURGICAL PATHOLOGY Sera Reddy MD 07/21/2024 9:26 AM B : left pelvic sentinel lymph node Tissue Lymph Node, Left, [place] SURGICAL PATHOLOGY Sera Reddy MD 07/21/2024 10:07 AM C : right pelvic sentinel lymph node Tissue Lymph Node, Right, [place] SURGICAL PATHOLOGY Sera Reddy MD 07/21/2024 10:13 AM COMPLICATIONS: None CLOSURE TECHNIQUE: Primary PRE-OP/PRE-PROCEDURE DIAGNOSIS: Grade 2 endometrial cancer POST-OP/POST-PROCEDURE DIAGNOSIS: Same as Preop Patient was accompanied to the next level of care by a licensed practitioner from the surgical team pending completion of this brief op note (or operative note) SIGNATURE: Brenton Segura MD PATIENT NAME: Santa Rahman DATE: July 21, 2024 TIME: 11:30 AM Normal [facility] CNNURSEon 07-21-2024 CNNURSE Nurse Visit (MARÍA) ----- KAYODESANTA ([id number]) 1955 F Date Time Provider Department 07/21/24 MARGARITA DUNN During your visit today, we recorded the following information about you: Margarita Dunn, Research Coordinator 07/21/2024 7:10 AM Signed IRB#: [id number] Study name: Leveraging Methylated DNA Markers (MDMs) in the Detection of Endometrial Cancer, Ovarian Cancer, and Cervical Cancer: a Phase II Clinical Study (ECHO) PI: Dr. Siegel Visit: Surgery Date: 21JUL2024 Reviewed study participation in cohort #2 with patient. Consent signed at previous visit on 10JUL2024. VS obtained All study procedures were completed per protocol. Patient was provided instruction regarding tampon collection. Tampon and blood collection completed per protocol. Tampon dwell duration: 34 minutes (insert time 0544/ removal time 0618) Lubricant used? No Blood collected at: 0557 Medications and past medical history reviewed as in Epic. AE according to version 5 https://ctep.cancer.gov/p rotocolDevelopment/electr onic_applications/docs/CT CAE_- v5_Quick_Reference_8.5x11 .pdf Toxicity Grade Start Date Stop Date Relationship to Tampon Dwell/ Blood Draw Relationship to Clinically-Indicated Procedures (endometrial biopsy, gynecologic surgery, etc.) Comments Uterine hemorrhage 1 16JUL2024 Not related Not related Tampon and blood samples were processed as per study protocol and submitted to appropriate study lab. Patient to contact research with any questions. Margarita Dunn, Research Coordinator Allergies As of Date: 07/21/2024 (No Known Allergies) Date Reviewed: 07/21/2024 Reviewed by: Deja Lopez RN - Fully Assessed Primary Visit Diagnosis:Endometrial cancer (HCC) [C54.1] Prescriptions as of 07/21/2024 - cetirizine (ZYRTEC) 10 mg tablet Take 10 mg by mouth once daily. - amLODIPine (NORVASC) 10 mg tablet Take 10 mg by mouth once daily. - Colestipol HCl 5 gram granules Take 5 g by mouth once daily. - hydroCHLOROthiazide 25 mg tablet Take 25 mg by mouth once daily. - losartan (COZAAR) 100 mg tablet 100 mg once daily. - metoprolol tartrate, short acting, (LOPRESSOR) 50 mg tablet Take 100 mg by mouth two times a day. Problem List As Of Date 07/21/2024 Noted Resolved PMB (postmenopausal bleeding) [N95.0] 05/16/2024 Fibroids, subserous [D25.2] 05/16/2024 Abnormal ultrasound of endometrium [R93.5] 05/16/2024 Thickened endometrium [R93.89] 05/16/2024 Incomplete left bundle branch block (LBBB) [I44*07/17/2024 Essential hypertension, benign [I10] 07/17/2024 Bilateral leg edema [R60.0] 07/17/2024 MORGAN (obstructive sleep apnea) [G47.33] 07/17/2024 Morbid obesity (HCC) [E66.01] 07/17/2024 Obesity, Class III, BMI >= 40 [E66.01] 07/19/2024 Encounter Status:Closed by MARGARITA DUNN on 07/21/24 Normal [facility] CONFIRM BLOOD TYPEon 024 ABO O [facility] Comment on above: Order Comment: Speci men Type: BLOOD SPECIMENOrdering Facility: [facility] Address: [address] [place] [address] Performed By: #### C ONABO ####[facility] [id number] [address] OF [facility] Rh Nom (Bld) Negative Normal [facility] Comment on above: Order Comment: Speci men Type: BLOOD SPECIMENOrdering Facility: [facility] Address: [address] [place] [address] Performed By: #### C ONABO ####[facility] BLOOD BANKCLIA [id number] [address] OF [place] OPERATIVE NOon 07-21-2024 OPERATIVE NO HNO ID: [id number] Author: SERA REDDY MD Service: Gynecology Oncology Author Type: Physician Type: Operative Report Filed: 07/21/2024 11:55 Note Text: OPERATIVE/PROCEDURE REPORT LOG ID: [id number] SURGERY/PROCEDURE DATE: 07/21/2024 INCISION/PROCEDURE START TIME: 8:26 AM INCISION CLOSE/PROCEDURE END TIME: 11:50 AM SURGEON(S)/PROCEDURALIST( S) AND ANIMAL REHABILITATOR(S): Surgeons and Role: * Sera Reddy MD - Primary * Timothy De La Garza MD - Resident - Assisting * Brenton Segura MD - Fellow No Additional Staff SURGERY/PROCEDURE(S): Total laparoscopic hysterectomy with bilateral salpingo-oophorectomy Uterus >250g (22 modifier, significant additional effort required due to BMI 61 and large fibroid uterus requiring minilaparotomy for specimen removal) Bilateral cervix injection of ICG for sentinel lymph node mapping Bilateral pelvic sentinel lymph node biopsy cystoscopy ANESTHESIA: General INDICATION FOR PROCEDURE: 68 y.o female with BMI 61 presenting for surgical management of Grade 2 Endometrial cancer INTRAOPERATIVE FINDINGS: Exam under anesthesia revealed normal vagina and cervix. Intraabdominal evaluation revealed broad fibroid uterus. Due to redundant bowel in the surgical field related to body habitus an additional 5mm port was required in addition to significant additional effort to ensure adequate bowel retraction throughout the case. SURGERY/PROCEDURE DETAILS: After informed consent was obtained patient was taken to the operating room and placed under general anesthesia. She was positioned in dorsal lithotomy position with legs in gabrielle stirrups with care taken to avoid excessive pressure on the lateral leg or hyperextension/flexion of the hip. Arms were tucked at the side padded and secured. She was prepped and draped in a normal sterile fashion. Almazan catheter was placed into the bladder. Patient received prophylactic antibiotics prior to incision. SCDs were in place and heparin was given for DVT prophylaxis. Surgical time out was performed confirming patient and procedure. Findings from exam under anesthesia were as above. A speculum was placed into the vagina and cervix grasped with single tooth tenaculum. Indocyanine green was injected into the cervix at 3 and 9 oclock in deep and superficial locations in preparation for sentinel lymph node mapping.The uterus sounded to 12cm and was serially dilated. A SeatID uterine manipulator was carefully placed into the endometrial cavity without complication. We then turned attention to the abdomen where A 5mm umbilical incision was made after injection of marcaine. Veress needle was used for entry into the peritoneal cavity on a single attempt and abdomen was insufflated up to 15mmhg. A 5mm port was placed under direct visualization. Initial survey of the abdomen was noted as above. Two additional 5mm ports were placed in the left lower quadrant and one additional 5mm port was placed on the right lower quadrant under direct visualization with care taken to avoid the inferior epigastric vasculature. Following this a peritoneal incision was made lateral to the left gonadal vessels to enter the retroperitoneal space. Paravesical and pararectal spaces were opens with blunt dissection and bipolar cautery. Ureter was identified. [place] lymph node mapping was not clear at that time. The same steps were done on the right also revealing mid external iliac lymph node which was not easily accessibly with broad uterus in the way, we then proceeded with hysterectomy. The left ureter was again identified and the IP ligament was ligated and transected using ligasure device above the ureter, the posterior leaf of the broad ligament was taken down towards the uterus. The left round ligament was then ligated and transected and the anterior leaf of the broad ligament was taken down towards the bladder. The uterine artery was skeletonized, ligated and transected at the level of the colpotomy cup. Dissection occurred in the same fashion on the right side however due to the broad fibroid uterus an additional 5mm LUQ port was placed to allow for retraction on the left sede. Uterine artery pedicles were lateralized away from the colpotomy cup . Bladder flap was taken down below the level of the colpotomy cup. A colpotomy was then created using monopolar energy. The uterus,cervix, tubes and ovaries were placed in a laparoscopic bag and stored in the upper abdomen with plans for removal through minilaparotomy. With hysterectomy completed, the pelvic side hernandez were more easily visible for sentinel lymph node identification. The pararectal and paravesical space on the left was inspected and a sentinel lymph node was removed along the external iliac artery. The same was completed on the right side. [place] lymph nodes were also removed through vagina. The vagina was closed laparoscopically in a running fa (more content not included)... Normal [facility] BLOOD BANK COMMENTon 024 BLOOD BANK COMMENT See Comment Normal [facility] Comment on above: Order Comment: Speci men Type: BLOOD SPECIMEN [facility] Facility[facility] Address: [address] [place] [address] Result Comment: 2nd sample NEEDED for ABO confirmation (CONABO) Performed By: #### T [id number], [id number] #### [facility] CLIA [id number] [address] [place] CBC panel Auto (Bld)on 07-17 Erythrocyte distribution width (RBC) [Ratio] 15.0 % Normal 11.5-15.0 [facility] Comment on above: Order Comment: Speci men Type: BLOOD SPECIMEN Ordering Facility: [facility] Address: [address] [place] [address] Performed By: #### 5 8410-2 #### [facility] CLIA [id number] [address] [place] [address] [place] Hematocrit (Bld) [Volume fraction] 46.9 % High 36.0-46.0 [facility] Comment on above: Order Comment: Speci men Type: BLOOD SPECIMEN Ordering Facility: [facility] Address: [address] [place] [address] Performed By: #### 5 8410-2 #### [facility] CLIA [id number] [address] [place] [address] [place] Hemoglobin (Bld) [Mass/Vol] 15.2 g/dL Normal 11.5-15.5 [facility] Comment on above: Order Comment: Speci men Type: BLOOD SPECIMEN Ordering Facility: [facility] Address: [address] [place] [address] Performed By: #### 5 8410-2 #### [facility] CLIA [id number] [address] MCH (RBC) [Entitic mass] 27.9 pg Normal 26.0-34.0 [facility] Comment on above: Order Comment: Speci men Type: BLOOD SPECIMEN [facility]ing [facility] Address: [address] [place] [address] Performed By: #### 5 8410-2 #### [facility] CLIA [id number] [address] MCHC (RBC) [Mass/Vol] 32.4 g/dL Normal 30.5-36.0 [facility] Comment on above: Order Comment: Speci men Type: BLOOD SPECIMEN [facility] Address: [address] [place] [address] Performed By: #### 5 8410-2 #### [facility] CLIA [id number] [address] MCV (RBC) [Entitic vol] 86.2 fL Normal 80.0-100.0 [facility] Comment on above: Order Comment: Speci men Type: BLOOD SPECIMEN [facility] Address: [address] [place] [address] Performed By: #### 5 8410-2 #### [facility] CLIA [id number] [address] Nucleated RBC (Bld) [#/Vol] 10*3/uL Normal <0.01 [facility] Comment on above: Order Comment: Speci men Type: BLOOD SPECIMEN [facility] Address: [address] [place] [address] Performed By: #### 5 8410-2 #### [facility] CLIA [id number] [address] [place] Platelet mean volume (Bld) [Entitic vol] 9.7 fL Normal 9.0-12.7 [facility] Comment on above: Order Comment: Speci men Type: BLOOD SPECIMEN [facility] Address: [address] [place] [address] Performed By: #### 5 8410-2 #### [facility] CLIA [id number] [address] OF [place] Platelets (Bld) [#/Vol] 323 10*3/uL Normal 150-400 [facility] Comment on above: Order Comment: Speci men Type: BLOOD SPECIMEN [facility] Address: [address] [place] [address] Performed By: #### 5 8410-2 #### [facility] CLIA [id number] [address] RBC (Bld) [#/Vol] 5.44 10*6/uL High 3.90-5.20 [facility] Comment on above: Order Comment: Speci men Type: BLOOD SPECIMEN [facility] Address: [address] [place] [address] Performed By: #### 5 8410-2 #### [facility] CLIA [id number] [address] WBC (Bld) [#/Vol] 7.74 10*3/uL Normal 3.70-11.00 [facility] Comment on above: Order Comment: Speci men Type: BLOOD SPECIMEN [facility] Address: [address] [place] [address] Performed By: #### 5 8410-2 #### [facility] CLIA [id number] [address] OF [facility] Cancer Ag125 SerPl-aCncon Cancer Ag 125 Qn 8 [arb'U]/mL Normal <39 [facility] Comment on above: Order Comment: Speci men Type: BLOOD SPECIMEN [facility] Address: [address] [place] [address] Result Comment: CA 1 25 test methodology used is the Electrochemiluminescence Immunoassay by [employer]. Results obtained with different methods or kits cannot be used interchangeably. The reference interval is based on the 95th percentile of 240 apparently healthy premenopausal and postmenopausal women. At a cutoff value of 65 U/mL, the test sensitivity to distinguish ovarian carcinoma (FIGO stage I to IV) versus benign gynecological disease is 79%, with a specificity of 82%. Reference: Cancer Antigen 125 (CA 125 II) [package insert V 1.0 Italian]. [employer], [place], [place] (May 2015) Performed By: #### 1 0334-1 #### [facility] CLIA [id number] [address] [place], [place] [address]K [address] OF [facility] Comprehensive metabolic 2000 panelon 07-17-2024 Albumin [Mass/Vol] 4.1 g/dL Normal 3.9-4.9 [facility] Comment on above: Order Comment: Speci men Type: BLOOD SPECIMEN [facility] Address: [address] [place] [address] Performed By: #### 2 4323-8 #### [facility] CLIA [id number] [address] ALP [Catalytic activity/Vol] 92 U/L Normal 34-123 [facility] Comment on above: Order Comment: Speci men Type: BLOOD SPECIMEN [facility] Address: [address] [place] [address] Performed By: #### 2 4323-8 #### [facility] CLIA [id number] [address] [place] [facility] ALT [Catalytic activity/Vol] 41 U/L High 7-38 [facility] Comment on above: Order Comment: Speci men Type: BLOOD SPECIMEN [facility] Address: [address] [place] [address] Performed By: #### 2 4323-8 #### [facility] CLIA [id number] [address] Anion gap [Moles/Vol] 14 mmol/L Normal 8-15 [facility] Comment on above: Order Comment: Speci men Type: BLOOD SPECIMEN Order[facility] Facility[facility] Address: [address] [place] [id number] Performed By: #### 2 4323-8 #### [facility] CLIA [id number] [address] [place] [address] [place] AST [Catalytic activity/Vol] 18 U/L Normal 13-35 [facility] Comment on above: Order Comment: Speci men Type: BLOOD SPECIMEN Ordering Facility: [facility] Address: [address] [place] [address] Performed By: #### 2 4323-8 #### [facility] CLIA [id number] [address] [place] [address] [place] Bilirubin [Mass/Vol] 0.4 mg/dL Normal 0.2-1.3 [facility] Comment on above: Order Comment: Speci men Type: BLOOD SPECIMEN Ordering Facility: [facility] Address: [address] [place] [address] Performed By: #### 2 4323-8 #### [facility] CLIA [id number] [address] [place] [address] [place] Calcium [Mass/Vol] 9.6 mg/dL Normal 8.5-10.2 [facility] Comment on above: Order Comment: Speci men Type: BLOOD SPECIMEN Ordering Facility: [facility] Address: [address] [place] [address] Performed By: #### 2 4323-8 #### [facility] CLIA [id number] [address] [place] [address] [place] Chloride [Moles/Vol] 101 mmol/L Normal 98-107 [facility] Comment on above: Order Comment: Speci men Type: BLOOD SPECIMEN Ordering Facility: [facility] Address: [address] [place] [id number] Performed By: #### 2 4323-8 #### [facility] CLIA [id number] [address] [place] [address] [place] CO2 [Moles/Vol] 25 mmol/L Normal 22-30 [facility] Comment on above: Order Comment: Speci men Type: BLOOD SPECIMEN Ordering Facility: [facility] Address: [address] [place], [place] [id number] Performed By: #### 2 4323-8 #### [facility] CLIA [id number] [address] [place] [facility] Creatinine [Mass/Vol] 0.43 mg/dL Low 0.58-0.96 [facility] Comment on above: Order Comment: Elmo mo Type: BLOOD SPECIMEN Ordering Facility: [facility] Address: [address] [place] [address] Performed By: #### 2 4323-8 #### [facility] CLIA [id number] [address] Creatinine and Glomerular filtration rate.predicted panel (S/P/Bld) 107 mL/min/1.73m??? Normal >=60 [facility] Comment on above: Order Comment: Elmo mo Type: BLOOD SPECIMEN Ordering Facility: [facility] Address: [address] [place] [address] Result Comment: Jessica mated Glomerular Filtration Rate (eGFR) is calculated using the 2020 CKD-EPI creatinine equation. This equation utilizes serum creatinine, sex, and age as parameters. The creatinine assay has traceable calibration to isotope dilution-mass spectrometry. Refer to KDIGO guidelines for clinical interpretation. In patients with unstable renal function, e.g. those with acute kidney injury, the eGFR may not accurately reflect actual GFR. Performed By: #### 2 4323-8 #### [facility] CLIA [id number] [address] Glucose [Mass/Vol] 92 mg/dL Normal 74-99 [facility] Comment on above: Order Comment: Elmo mo Type: BLOOD SPECIMEN Ordering Facility: [facility] Address: [address] [place] [address] Result Comment: The [place] Diabetes Association (ADA) provides guidance for cutoff values for fasting glucose and random glucose. The ADA defines fasting as no caloric intake for at least 8 hours. Fasting plasma glucose results between 100 to 125 mg/dL indicate increased risk for diabetes (prediabetes). Fasting plasma glucose results greater than or equal to 126 mg/dL meet the criteria for diagnosis of diabetes. In the absence of unequivocal hyperglycemia, results should be confirmed by repeat testing. In a patient with classic symptoms of hyperglycemia or hyperglycemic crisis, random plasma glucose results greater than or equal to 200 mg/dL meet the criteria for diagnosis of diabetes. Reference: Standards of Medical Care in Diabetes 2016, [place] Diabetes Association. Diabetes Care. 2016.39(Suppl 1). Performed By: #### 2 4323-8 #### [facility] CLIA [id number] [address] [place] Potassium [Moles/Vol] 4.0 mmol/L Normal 3.7-5.1 [facility] Comment on above: Order Comment: Jenniei men Type: BLOOD SPECIMEN Ordering Facility: [facility] Address: [address] [place] [address] Performed By: #### 2 4323-8 #### [facility] CLIA [id number] [address] Protein [Mass/Vol] 8.1 g/dL High 6.3-8.0 [facility] Comment on above: Order Comment: Jenniei men Type: BLOOD SPECIMEN Ordering Facility: [facility] Address: [address] [place] [address] Performed By: #### 2 4323-8 #### [facility] CLIA [id number] [address] Sodium [Moles/Vol] 140 mmol/L Normal 136-144 [facility] Comment on above: Order Comment: Elmo mo Type: BLOOD SPECIMEN Ordering Facility: [facility] Address: [address] [place] [address] Performed By: #### 2 4323-8 #### [facility] CLIA [id number] [address] [place] Urea nitrogen [Mass/Vol] 11 mg/dL Normal 7-21 [facility] Comment on above: Order Comment: Jenniei men Type: BLOOD SPECIMEN Ordering Facility: [facility] Address: [address] [place] [address] Performed By: #### 2 4323-8 #### [facility] CLIA [id number] [address] [place] ECG COMPLETEon 07-17-2024 ECG COMPLETE Ventricular Rate : 5 8 BPM Atrial Rate : 58 BPM P-R Interval : 224 ms QRS Duration : 112 ms Q-T Interval : 448 ms QTC Calculation(Bazett) : 439 ms Calculated P [place] : 17 degrees Calculated R [place] : -5 degrees Calculated T [place] : 18 degrees SINUS BRADYCARDIA WITH 1ST DEGREE A-V BLOCK INCOMPLETE LEFT BUNDLE BRANCH BLOCK MINIMAL VOLTAGE CRITERIA FOR LVH, MAY BE NORMAL VARIANT BORDERLINE ECG NO PREVIOUS ECGS AVAILABLE Confirmed by MD ARIAS QARAB ([id number]) on 07/18/2024 2:43:25 PM NAME : SANTA RAHMAN PID : [id number] : 1955 Gender : Female Race : ORD : [id number] Procedure Date : Jul 17 2024 13:16:04 Edit Date : Jul 18 2024 14:43:29 Diagnosis: SINUS BRADYCARDIA WITH 1ST DEGREE A-V BLOCK INCOMPLETE LEFT BUNDLE BRANCH BLOCK MINIMAL VOLTAGE CRITERIA FOR LVH, MAY BE NORMAL VARIANT BORDERLINE ECG NO PREVIOUS ECGS AVAILABLE Confirmed by MD ARIAS QARAB ([id number]) on 07/18/2024 2:43:25 PM Test Reason : [facility] Location : : [facility]/ Overread By : MD ARIAS QARAB Edited By : MD ARIAS QARAB Referred By : DEJA NUNEZ Acquired by : Claudette THOMAS [facility] HISTORY PHYSICALon HISTORY PHYSICAL HNO ID: [id number] Author: ANDRADE COLE APRN.STORAGE MANAGER Service: ? Author Type: Nurse Practitioner Type: H&P Filed: 07/17/2024 13:51 Note Text: [facility] HISTORY AND PHYSICAL EXAMINATION SERVICE DATE: 07/17/2024 SERVICE TIME: 1:49 PM PRIMARY CARE PHYSICIAN: No primary care provider on file. Assessment Patient has the following medical conditions which may affect inés-operative course: Incomplete left bundle branch block (LBBB) Assessment: per today's EKG, no EKG's in epic to compare, pt states she believes this has been chronic on her EKG and had a work up completed by her PCP, records requested Essential hypertension, benign Assessment: controlled on rx Bilateral leg edema Assessment: on rx, chronic, pt states was told it was not lymphedema by PCP MORAGN (obstructive sleep apnea) Assessment: c/w CPAP Morbid obesity (HCC) Assessment: Body mass index is 61.08 kg/m?. Zaldivar Activity Status Index: METS: Walk indoors, such as around the house (1.75 METs) Do light work around the house, such as dusting or washing dishes (2.70 METs) Take care of self; that is eating, dressing, bathing, using the toilet (2.75 METs) Walk a block or two on level ground (2.75 METs) Do moderate work around the house, such as vacuuming, sweeping floors, or carrying in groceries (3.50 METs) Do yardwork, such as raking leaves, weeding, or pushing a power mower (4.50 METs) DASI Score: 17.95 (With crutches 2/2 weight BMI 61 and bilateral knee pain) Patient denies any chest pain or undue shortness of breath with the above physical activity. Clinical Frailty Scale: 4. Apparently vulnerable STOP-Bang Score: Snores loudly Has or is being treated for high blood pressure BMI greater than 35 kg/m2 Patient over 50 years old Has a large neck Denies feeling tired, fatigued, or sleepy during the daytime Has not been observed to stop breathing or choking/gasping during sleep Non-male patient STOP-Bang Score: 5 [id number] Score: Age: 65-74 Sex: female CHF history: No Hypertension history: Yes Stroke/TIA/thromboembolis m history: No Vascular disease history: No Diabetes history: No [id number] Score: 3 ARISCAT Score: Age: 51-80 Preoperative SpO2: 91-95% Respiratory infection in the last month: No Preoperative anemia: No Surgical incision: upper abdominal Duration of surgery: >3 hrs Emergency procedure: No ARISCAT Score: 49 ANESTHESIA FINDINGS: Intubation History: No history of difficult intubation Significant Anesthesia Considerations: none Airway History: No history of difficult airway I - PHYSICAL EVALUATION AIRWAY Patient intubated: No. Tracheostomy tube not present Mallampati: III. TM distance: >3 FB. Neck ROM: full ROM without neurological symptoms. Mouth opening: adequate. Short neck: no. Thick neck: yes Russell present: no Lip Bite Test: I Microretrognathia/Microna gthia/Recessed Chin: No DENTAL Dental findings: teeth intact. Additional comments: Implants/sides/back. II - ANESTHESIA PLAN Anesthetic Plan: other Beta Marty Monitoring Plan Post Procedure Analgesic Plan Prepared for Surgery: optimally prepared for surgery, pending [see comment]. EKG and labs pending Cardiac testing records requested from PCP's office CONSULTS: Patient does not require consults for optimization at this time Planned Anesthetic: other anesthesia choice The Following Tests/Procedures Have Been Initiated: No orders of the defined types were placed in this encounter. REASON FOR VISIT: Santa Rahman is a 68 year old female who is scheduled for Procedure(s): LAPAROSCOPIC HYSTERECTOMY TOTAL FOR UTERUS 250 G OR LESS W/REMOVAL TUBE(S) AND/OR OVARY(S) (Bilateral) INTRAOPERATIVE ID OF SENTINEL LYMPH NODE(S) INCL'D INJECTION OF NON-RAD DYE WHEN PERFORMED (Bilateral) at the request of Dr. Sera Reddy for consultation. My final recommendation will be communicated back to the requesting physician by way of shared medical record or letter. Subjective The patient has the following: COVID-19 Immunization Status Overdue - Covid-19 Vaccine () Overdue since 04/27/2024 07/26/2021 Imm Admin: COVID-19 original vaccine, full dose, monovalent (MODERNA) 10/04/2020 Imm Admin: COVID-19 original vaccine, full dose, monovalent (MODERNA) 09/03/2020 Imm Admin: COVID-19 original vaccine, full dose, monovalent (MODERNA) Only the first 3 history entries have been loaded, but more history exists. CHIEF COMPLAINT: Pre-op exam HPI: Santa Rahman is a 68 year old seen for PAC due to scheduled above surgery because of endometrial cancer. 06/30/2024, Dr. Sera Reddy HPI: Ms. Rahman is a 68 year old female who has a past medical history of Abnormal ultrasound of endometrium (05/16/2024), Essential hypertension, Obesity, PMB (postmenopausal bleeding) (05/16/2024), Primary (more content not included)... [facility] TYPE AND SCREEN,30 DAYon ABO O [facility] Comment on above: Order Comment: Speci men Type: BLOOD SPECIMEN Ordering Facility: [facility] Address: [address] [place] [address] Performed By: #### T SCR30, [id number] #### [facility] CLIA [id number] [address] [place] [address] [facility] [place] Rh Nom (Bld) Negative [facility] Comment on above: Order Comment: Speci men Type: BLOOD SPECIMEN Ordering Facility: [facility] Address: [address] [place] [address] Performed By: #### T SCR30, [id number] #### [facility] CLIA [id number] [address] [place] [address] [facility] XR CHEST 2V FRONTAL/LATon XR CHEST 2V FRONTAL/LAT * * *Final Report* * * DATE OF EXAM: Jul 17 2024 1:46PM MDX 5291 - XR CHEST 2V FRONTAL/LAT / PROCEDURE REASON: Z01.818-Pre-op testing * * * * Physician Interpretation * * * * EXAMINATION: CHEST RADIOGRAPH (2 VIEW FRONTAL and LATERAL) CLINICAL HISTORY: Pre-op testing . Endometrial carcinoma MQ: XC2_6 EXAM DATE/TIME: 07/17/2024 1:46 PM COMPARISON: No relevant prior studies available. RESULT: Lines, tubes, and devices: None. Lungs and pleura: No consolidation. No lung mass. No pleural effusion. No pneumothorax. Cardiomediastinal silhouette: Borderline cardiomediastinal silhouette. Bones and soft tissues: Multilevel degenerative change and osteophytosis. IMPRESSION: No acute radiographic abnormality. No evidence of nodule or mass Tobacco Prizer: PSCB Transcribe Date/Time: Jul 17 2024 4:12P Dictated by : CAR MOSLEY MD This examination was interpreted and the report reviewed and electronically signed by: CAR MOSLEY MD on Jul 17 2024 4:24PM EST [id number] Normal [facility] XR Chest PA and Lateralon IMPRESSION: No acute radiographic abnormality. No evidence of nodule or mass Tobacco Prizer: PSCB Transcribe Date/Time: Jul 17 2024 4:12P Dictated by : CAR MOSLEY MD This examination was interpreted and the report reviewed and electronically signed by: CAR MOSLEY MD on Jul 17 2024 4:24PM EST [facility] * * *Final Report* * * DATE OF EXAM: Jul 17 2024 1:46PM MDX 5291 - XR CHEST 2V FRONTAL/LAT / PROCEDURE REASON: Z01.818-Pre-op testing * * * * Physician Interpretation * * * * EXAMINATION: CHEST RADIOGRAPH (2 VIEW FRONTAL & LATERAL) CLINICAL HISTORY: Pre-op testing . Endometrial carcinoma MQ: XC2_6 EXAM DATE/TIME: 07/17/2024 1:46 PM COMPARISON: No relevant prior studies available. RESULT: Lines, tubes, and devices: None. Lungs and pleura: No consolidation. No lung mass. No pleural effusion. No pneumothorax. Cardiomediastinal silhouette: Borderline cardiomediastinal silhouette. Bones and soft tissues: Multilevel degenerative change and osteophytosis. [facility] Provider, [facility] - 07/17/2024 * * *Final Report* * * DATE OF EXAM: Jul 17 2024 1:46PM MDX 5291 - XR CHEST 2V FRONTAL/LAT / PROCEDURE REASON: Z01.818-Pre-op testing * * * * Physician Interpretation * * * * EXAMINATION: CHEST RADIOGRAPH (2 VIEW FRONTAL & LATERAL) CLINICAL HISTORY: Pre-op testing . Endometrial carcinoma MQ: XC2_6 EXAM DATE/TIME: 07/17/2024 1:46 PM COMPARISON: No relevant prior studies available. RESULT: Lines, tubes, and devices: None. Lungs and pleura: No consolidation. No lung mass. No pleural effusion. No pneumothorax. Cardiomediastinal silhouette: Borderline cardiomediastinal silhouette. Bones and soft tissues: Multilevel degenerative change and osteophytosis. IMPRESSION IMPRESSION: No acute radiographic abnormality. No evidence of nodule or mass Tobacco Prizer: PSCB Transcribe Date/Time: Jul 17 2024 4:12P Dictated by : CAR MOSLEY MD This examination was interpreted and the report reviewed and electronically signed by: CAR MOSLEY MD on Jul 17 2024 4:24PM EST [facility] Radiology Study observation (narrative) [facility] XR Chest PA and LateralOrder ed By: [facility] Provider on 07-17-2024 [facility] CNPNon 07-16-2024 CNPN Telephone (WHQ) ----- SANTA RAHMAN ([id number]) 1955 F Date Time Provider Department 07/16/24 SERA REDDY WHQ During your visit today, we recorded the following information about you: Osmin Mccracken 07/16/2024 9:39 AM Signed Called patient and confirmed surgery date 07/21/2024 and future appointments. Patient verbalized understanding. Allergies As of Date: 07/16/2024 (No Known Allergies) Date Reviewed: 07/10/2024 Reviewed by: January Urban MA - Fully Assessed Reason for Visit: Schedule Surgery [1330] Appointment Confirmation [[id number]] Prescriptions as of 07/16/2024 - albuterol HFA (PROVENTIL HFA, VENTOLIN HFA) 90 mcg/actuation inhaler Inhale 1 Puff as instructed every 4 hours as needed. - amLODIPine (NORVASC) 10 mg tablet Take 10 mg by mouth once daily. - Colestipol HCl 5 gram granules Take 5 g by mouth once daily. - hydroCHLOROthiazide 25 mg tablet Take 25 mg by mouth once daily. - losartan (COZAAR) 100 mg tablet 100 mg once daily. - metoprolol tartrate, short acting, (LOPRESSOR) 50 mg tablet Take 100 mg by mouth two times a day. Problem List As Of Date 07/16/2024 Noted Resolved PMB (postmenopausal bleeding) [N95.0] 05/16/2024 Fibroids, subserous [D25.2] 05/16/2024 Abnormal ultrasound of endometrium [R93.5] 05/16/2024 Thickened endometrium [R93.89] 05/16/2024 Encounter Status:Closed by OSMIN MCCRACKEN on 07/16/24 Normal [facility] CNOVSPon 07-10-2024 CNOVSP Visit (SP) Office (G YNML) ----- SANTA RAHMAN ([id number]) 1955 F Date Time Provider Department 07/10/24 10:00 AM SERA REDDY GYN During your visit today, we recorded the following information about you: Pulse Respiration Blood pressure Weight 70/minute 18/minute 198/81 167.3 kg Sera Reddy MD 07/10/2024 11:12 AM Signed DATE OF SERVICE: 07/10/2024 PROBLEM: Santa Rahman is a consult from Dr. Lau for evaluation of endometrial cancer. HPI: Ms. Rahman is a 68 year old female who has a past medical history of Abnormal ultrasound of endometrium (05/16/2024), Essential hypertension, Obesity, PMB (postmenopausal bleeding) (05/16/2024), Primary generalized (osteo)arthritis, Sleep apnea, and Thickened endometrium (05/16/2024). Patient reports started having postmenopausal bleeding intermittently since August 2023. Reports light spotting for a few days. Santa presented to [facility] with complaints of PMB. Thickened endometrium noted on US. 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 Patient presents to [facility] for further evaluation. Patient reports that currently still having some spotting, though very light. IMAGIN05/15/24 US: Impression The uterus is anteverted and measures 119 mm x 88 mm x 132 mm. The endometrium is heterogenous, thickened with irregular cystic areas nd measures 13 mm. 1. Right lateral anterior wall subserous fibroid measures 69 mm x 91 mm x 68 mm. 2. Left lateral posterior wall subserous fibroid measures 53 mm x 59 mm x 50 mm. the right ovary is not visualized. The left ovary is not visualized. There is no free fluid visualized. 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 HISTORIES: PAST GYNECOLOGIC HISTORY: OB History T0 L3 (all vaginal) SAB0 IAB0 Ectopic0 Multiple0 Live Births0 LMP: No LMP recorded. Patient is postmenopausal. Hormonal contraceptives: Yes, in 20s How lon years. HRT use: No. History of abnormal pap: No. Last pap: 06/19/24 negative Last HPV: 06/19/24 negative PAST SURGICAL HISTORY Procedure Laterality Date HYSTEROSCOPY, DIAGNOSTIC (SEPARATE hysteroscopy dANDc PAST MEDICAL HISTORY Diagnosis Date Abnormal ultrasound of endometrium 05/16/2024 Essential hypertension Obesity PMB (postmenopausal bleeding) 05/16/2024 Primary generalized (osteo)arthritis Sleep apnea Thickened endometrium 05/16/2024 FAMILY HISTORY Problem Relation Age of Onset Heart Attack Mother Macular Degen Mother Cataract Mother Uterine Fibroids Mother Arthritis Mother Obesity Mother Arthritis Father Hearing Loss Father Inherited Eye Disease Father Hypertension Father other (atrial fib) Sister Uterine Fibroids Sister Heart Attack Brother other (atrial fib) Brother Obesity Paternal Grandmother Family history of breast, ovarian, uterine or colon cancer: No Family history of VTE: No SOCIAL HISTORY Social History Tobacco Use Smoking status: Never Smokeless tobacco: Never Vaping Use Vaping status: Never Used Substance Use Topics Alcohol use: Not Currently Drug use: Never Occupation: retired, RN Marital Status: , Andrew HEALTH MAINTENANCE: Last mammogram: 04/2024 Last colonoscopy: due for one this year ADVANCED CARE PLANNING: Does the patient have an advanced directive: Yes REVIEW OF SYSTEMS: GENERAL: No recent weight loss, fever, chills, malaise or fatigue. HEENT: No changes in hearing or vision, frequent or severe headaches, nose bleeds or other nasal problems. NECK: No lumps, goiter, pain, significant neck swelling, or difficulty swallowing. RESPIRATORY: No shortness of breath, cough, wheezing, recent pneumonia (within last 6 weeks) or recent URI (within 2 weeks). Dyspnea on exertion CARDIOVASCULAR: No angina with activity or at rest, lower extremity edema, or palpitations. No recent NE (within 6 months), cardiac stent, cardiac surgery, gangrene, or PVD. No history of hypertension. BREAST: No breast lumps, skin changes, nipple discharge, or adenopathy. GI: No abdominal pain, nausea, vomiting, diarrhea, or constipation, +bloating, diarrhea (improved with medication cholestipal). No prior history of esophageal varicies or ascites. Patient denies drinking >2 alcoholic beverages a day. [facility]: + spotting.No vulvar bumps, lesions, pruritis, or pain. : No dysuria, gross hematuria, urinary frequency, urinary urgency. +stress incontinence No history of renal failure, dialysis, or recent UTI (<6 weeks). MUSCULOSKELETAL: No muscle weakness. + joint pain SKIN: No skin lesions, rashes, or itching. PSYCH: No sleep disturba (more content not included)... [facility] Visit (IGMN ) ----- SANTA RAHMAN ([id number]) 1955 F Date Time Provider Department 06/19/24 9:30 AM ARLETH LAU JOYCE During your visit today, we recorded the following information about you: Blood pressure Weight 152/74 164.2 kg Arleth Lau APRN.AC 06/19/2024 10:05 AM Signed Santa Rahman is scheduled for an endometrial biopsy at the request of Dr. Her. Unable to compete biopsy in office. Her hx is complicated by BMI 61.18, history of complex endometrial hyperplasia, and thickened endometrial stripe on US at 13mm. ENDOMETRIAL BIOPSY PROCEDURE Date/Time: 06/19/2024 9:58 AM Performed by: Arleth Lau APRN.STORAGE MANAGER Authorized by: Arleth Lau APRN.CNP Diagnosis: (R93.89) Thickened endometrium (primary encounter diagnosis) (Z12.4) Screening for malignant neoplasm of cervix No LMP recorded. Patient is postmenopausal. Informed Consent Consent Obtained: Written Hilliards Protocol A moment to CARE was completed. SIGN IN Personnel directly involved with the procedure wore the appropriate PPE. Patient/Surrogate Stated/Verified: Patient name, Date of , Relevant allergies and Intended procedure TIME OUT Intended patient and procedure match the source document(s). Consent documented and matches the intended procedure. Relevant labs, photos, and/or imaging studies have been reviewed. Pre-Procedure Details: Site Prep: Povidone Iodine (Betadine) Analgesia (see MAR): Medications: None Procedure Details: External Genitalia: Normal in appearance without lesions Vagina: Normal in appearance without lesions A bivalve speculum was placed in the vagina. Cervix cleaned and prepped A paracervical block was not performed. noAn intracervical block was not performed. The cervix was dilated. Uterus sounded. Uterus sound depth (cm): 12 Findings: Pelvic exam performed. Cervix: normal Patient Education: side effects discussed with patient Follow-up includes calling patient with results, follow-up appointment. Indication: Post menopausal bleeding and thickening of endometrial lining Post-Procedure Details: Patient tolerated the procedure well with no immediate complications Estimated Blood Loss: None Specimens Sent: EMB (co-testing collected) SIGN OUT All instruments, equipment, possible retained foreign bodies accounted for. Post-procedure follow-up management communicated and Plan of Care Visit completed when applicable Encounter Diagnosis ICD-10-CM 1. Thickened endometrium R93.89 SURGICAL PATHOLOGY ENDO BIOPSY 2. Screening for malignant neoplasm of cervix Z12.4 PAP TEST Long graves speculum used to visualize cervix. Unclear if fundus was reached with Pipelle, but adequate sample collected. Pap and HPV testing also collected and sent. Arleth Lau APRN.CNP June 19, 2024 10:01 AM Arleth Lau APRN.CNP 06/19/2024 10:05 AM Signed Please make a virtual follow up appointment with me to review pathology and plan. Arleth Lau APRN.CNP 06/30/2024 9:01 AM Signed Addended by: ARLETH LAU on: 06/30/2024 09:01 AM Modules accepted: Orders Referring Provider: HUNTER HER [[id number]] Allergies As of Date: 06/19/2024 (No Known Allergies) Date Reviewed: 05/08/2024 Reviewed by: Blanche Sharpe LPN - Fully Assessed Reason for Visit: New Patient [172] Primary Visit Diagnosis:Thickened endometrium [R93.89] Other Visit Diagnoses:Screening for malignant neoplasm of cervix [Z12.4] Endometrial adenocarcinoma (HCC) [C54.1] Order(s):CONSULT TO MINIMALLY INVASIVE GYNECOLOGIC SURGERY [1814371] Order #: [id number]: 1 SURGICAL PATHOLOGY [[id number]] Order #: [id number]. #:[id number] PAP TEST [[id number]] Order #: [id number]. #:[id number] ENDO BIOPSY [PRO73] Order #: [id number] HIGH RISK HUMAN PAPILLOMA VIRUS (HPV), PCR FOR DETECTION AND GENOTYPING [SQHPVHRT] Reflex Order#: [id number] (Ord#:[id number])Spec. #:[id number] MISMATCH REPAIR PROTEINS BY IHC [[id number]] Reflex Order#: [id number] (Ord#:[id number])Spec. #:[id number] POLE PYROSEQUENCING [SQPOLE] Reflex Order#: [id number] (Ord#:[id number])Spec. #:[id number] CONSULT TO GYNECOLOGIC/ONCOLOGY [[id number]] Reflex Order#: [id number] (Ord#:[id number])Qty: 1 FUTURE Prescriptions as of 06/30/2024 - albuterol HFA (PROVENTIL HFA, VENTOLIN HFA) 90 mcg/actuation inhaler Inhale 1 Puff as instructed every 4 hours as needed. - amLODIPine (NORVASC) 10 mg tablet Take 10 mg by mouth once daily. - Colestipol HCl 5 gram granules Take 5 g by mouth once daily. - hydroCHLOROthiazide 25 mg tablet Take 25 mg by mouth once daily. - losartan (COZAAR) 100 mg tablet 100 mg once daily. - metoprolol tartrate, short acting, (LOPRESSOR) 50 mg tablet Take 50 mg by mouth two times a day. Problem List As Of Date 06/19/2024 Noted Resolved PMB (postmenopaus (more content not included)... Normal [facility] ENDO BIOPSYon 06-19-2024 [facility] HIGH RISK HUMAN PAPILLOMA TREVON (HPV), PCR FOR DETECTION AND GENOTYPINGon 06-19-2024 HPV 16 Ag Ql (Unsp spec) Not detected Normal Not detected [facility] Comment on above: Order Comment: Speci men Type: FLUID SPECIMENOrdering Facility: [facility] Address: [address] [place] [address] [place] [address] Performed By: #### L [id number], HPVHRT ####[facility] LABCLIA [id number] [place] [address] [place] HPV 18 Ag Ql (Unsp spec) Not detected Normal Not detected [facility] Comment on above: Order Comment: Speci men Type: FLUID SPECIMENOrdering Facility: [facility] Address: [address] [place] [address] Performed By: #### L [id number], HPVHRT ####[facility] LABCLIA [id number] [place] [address] [place] HPV 31+33+35+39+45+51+52+ 56+58+59+66+68 DNA VIKTORIA+probe Ql (Cvx) Not detected Normal Not detected [facility] Comment on above: Order Comment: Speci men Type: FLUID SPECIMENOrdering Facility: [facility] Address: [address] [place] [address] Result Comment: High Risk HPV Other Type includes HPV types 31, 33, 35, 39, 45, 51, 52, 56, 58, 59, 66 and 68. Performed By: #### L [id number], HPVHRT ####[facility] LABCLIA [id number] [place] [address] [place] MISMATCH REPAIR PROTEINS BY IHCon 06-19-2024 AP BIOMARKER DISCLAIMER Normal [facility] Comment on above: Order Comment: Speci men Type: TISSUE SPECIMENOrdering Facility: [facility] Address: [address] [place] [address] Result Comment: Celine morrison Developed Test (LDT) Disclaimer: Performance characteristics of immunohistochemical, immunofluorescent and chromogenic in-situ hybridization tests have been determined by the performing laboratory within [facility]???s Lauri Hastings Pathology and Laboratory Medicine Department ([facility], [facility], [facility], [facility], [facility], [facility], or [facility]) in a manner consistent with CLIA requirements. One or more of these tests have not been cleared or approved by the FDA. RT-PLM is regulated under CLIA as qualified to perform high-complexity testing. These tests are used for clinical purposes. They should not be regarded as investigational or for research. Positive and negative controls stain appropriately. Performed By: #### S ####[facility]ATORYCLIA [id number] [address] LABCLIA [id number] [address] STATES [facility]#### [id number] ####[facility] LABCLIA [id number] [place] [address] [place] AP BLOCK ID A1 Normal [facility] Comment on above: Order Comment: Speci men Type: TISSUE SPECIMENOrdering Facility: [facility] Address: [address] [place] [address] Performed By: #### S ####[facility]ORYCLIA [id number] [address] LABCLIA [id number] [address] [place]#### [id number] ####[facility] LABCLIA [id number] [address] BIOMARKER INTERPRETATION COMMENT AND REFERENCE RANGE Normal [facility] Comment on above: Order Comment: Speci men Type: TISSUE SPECIMENOrdering Facility: [facility] Address: [address] [place] [address] Result Comment: Inta ct expression of MMR (mismatch repair) proteins by immunohistochemistry is highly correlated with a microsatellite stable result by MSI (microsatellite instability) PCR analysis, and the results from these tests are viewed as clinically equivalent by the FDA. This result excludes at least 90-95% of Prado syndrome. These tests are an imperfect screen because some mutations may not produce loss of immunohistochemical expression. MSI molecular testing can be performed upon request in cases with a high clinical suspicion and appropriate family history. In a phase 2 study of patients with metastatic carcinoma, Cornelia et al. ([facility] 2015;372:2509-20) reported that clinical benefit of pembrolizumab, an anti-programmed 1 (PD-1) immune checkpoint inhibitor, was predicted by the tumor's mismatch repair status; mismatch repair deficient (dMMR) tumors are more responsive to PD-1 blockade than mismatch repair proficient tumors. Pembrolizumab is FDA-approved for treating adult and pediatric patients with unresectable or metastatic solid tumors that display microsatellite instability-high (MSI-H) by PCR assay or dMMR by immunohistochemistry (IHC). The FDA does not distinguish between PCR and IHC-based assays, as these are considered equivalent and complimentary tests. As clinically indicated, and in the appropriate setting of genetic counseling with informed patient consent, further genetic testing may be helpful. For more information or questions about this result, please call the [facility] at [phone]. Performed By: #### S ####[facility]ORATORYCLIA [id number] [address] LABIA [id number] [address]#### [id number] ####[facility] [id number] [address] STATES [facility] BIOMARKER METHOD Normal [facility] Comment on above: Order Comment: Speci men Type: TISSUE SPECIMENOrdering Facility: [facility] Address: [address] [place] [address] Result Comment: Immu nohistochemistry was performed on formalin fixed paraffin-embedded tissue using the following clones: MLH1 (clone M1 mouse monoclonal); MSH2 ([id number] mouse monoclonal); and MSH6 (SP93 rabbit monoclonal); followed by ultrasensitive bright field detection (Optiview with amplification) from [[employer], [place]]. PMS2 (EP51 Rabbit monoclonal, [employer]); followed by ultrasensitive bright field detection ( Rodarte Refine Polymer DAB Detection) from [[employer], [place], [place]]. Performed By: #### S ####[facility]ORATORYCLIA [id number] [address] [facility] LABCLIA [id number] [address] [address] [place]#### [id number] ####[facility] LABCLIA [id number] [address] [address] [place] [facility] CASE NUMBER [facility] [id number] Normal [facility] Comment on above: Order Comment: Speci men Type: TISSUE SPECIMENOrdering Facility: [facility] Address: [address] [place] [address] Performed By: #### S ####[facility] LABORATORYCLIA [id number] [place] [id number] [place] [facility] LABCLIA [id number] [place] [address] [place]#### [id number] ####[facility] LABCLIA [id number] [place] [address] [place] FINAL PERFORMING LAB Normal [facility] Comment on above: Order Comment: Speci men Type: TISSUE SPECIMENOrdering Facility: [facility] Address: [address] [place] [address] Result Comment: Diag nostic interpretation performed at: [facility], [address] [place], [place] [address] CLIA# [id number] Transportation Equipment Painter: Daniel Vasquez MD Electronically signed out by: Lauri Garcia MD Performed By: #### S ####[facility] LABORATORYCLIA [id number] [place] [address] [place] [facility] LABCL[facility] [id number] [place] [address] [place]#### [id number] ####[facility] LABCLIA [id number] [address] [address] [place] FIXATIVE Formalin, 10% Neutra l Buffered Normal [facility] Comment on above: Order Comment: Speci men Type: TISSUE SPECIMENOrdering Facility: [facility] Address: [address] [place], [place] [address] Performed By: #### S ####[facility] [id number] [place] [address] [facility] LABCLIA [id number] [place] [id number] [place]#### [id number] ####[facility] LABCLIA [id number] [place] [address] [place] MLH1 IMMUNOHISTOCHEMICAL RESULTS Normal/Intact Nuclear Expression Normal [facility] Comment on above: Order Comment: Speci men Type: TISSUE SPECIMENOrdering Facility: [facility] Address: [address] [place], [place] [address] Performed By: #### S ####[facility] HOSPITALIA [id number] [address] STATES [facility] LABCLIA [id number] [place] [address] [place]#### [id number] ####[facility] LABCLIA [id number] [place] [address] [place] MLH1 PROMOTER METHYLATION ASSAY No Normal [facility] Comment on above: Order Comment: Speci men Type: TISSUE SPECIMENOrdering Facility: [facility] Address: [address] [place], [place] [address] Performed By: #### S ####[facility] LABORATORYIA [id number] [place] [address] [place] [facility] LABCLIA [id number] [place] [address] [place]#### [id number] ####[facility] LABCLIA [id number] [address] [address] [place] MMR INTERPRETATION Proficient (Microsatellite Stable) Normal [facility] Comment on above: Order Comment: Speci men Type: TISSUE SPECIMENOrdering Facility: [facility] Address: [address] [place] [address] Performed By: #### S ####[facility] LABORATORYCLIA [id number] [place] [address] [facility] LABCLIA [id number] [address] [address] [place]#### [id number] ####[facility] LABCLIA [id number] [address] [address] [place] MSH2 IMMUNOHISTOCHEMICAL RESULTS Normal/Intact Nuclear Expression Normal [facility] Comment on above: Order Comment: Speci men Type: TISSUE SPECIMENOrdering Facility: [facility] Address: [address] [place], [place] [address] Performed By: #### S ####[facility] LABORATORYCLIA [id number] [place] [address] [place] [facility] LABCLIA [id number] [address] [address] [place]#### [id number] ####[facility] LABCLIA [id number] [address] [address] [place] MSH6 IMMUNOHISTOCHEMICAL RESULTS Normal/Intact Nuclear Expression Normal [facility] Comment on above: Order Comment: Speci men Type: TISSUE SPECIMENOrdering Facility: [facility] Address: [address] [place], [place] [address] Performed By: #### S ####[facility] LABORATORYCLIA [id number] [place] [address] [place] [facility] LABCLIA [id number] [address] [address] [place]#### [id number] ####[facility] LABCLIA [id number] [address] [address] [place] PMS2 IMMUNOHISTOCHEMICAL RESULTS Normal/Intact Nuclear Expression Normal [facility] Comment on above: Order Comment: Speci men Type: TISSUE SPECIMENOrdering Facility: [facility] Address: [address] [place] [address] Performed By: #### S ####[facility] LABORATORYCLIA [id number] [address] LABCLIA [id number] [place] [address] [place]#### [id number] ####[facility] LABCLIA [id number] [place] [address] [place] TUMOR TYPE MMR Primary Uterine Endometrial Adenocarcinoma Normal [facility] Comment on above: Order Comment: Speci men Type: TISSUE SPECIMENOrdering Facility: [facility] Address: [address] [place] [address] Performed By: #### S ####[facility] LABORATORYCLIA [id number] [address] LABCLIA [id number] [place] [address] [place]#### [id number] ####[facility] LABCLIA [id number] [place] [address] [place] PAP TESTon 06-19-2024 ADEQUACY Satisfactory for interpretation. Normal [facility] Comment on above: Order Comment: Speci men Type: FLUID SPECIMENOrdering Facility: [facility] Address: [address] [place] [address] Performed By: #### L [id number], HPVHRT ####[facility] LABCLIA [id number] [place] [address] [place] CASE REPORT Normal [facility] Comment on above: Order Comment: Speci men Type: FLUID SPECIMENOrdering Facility: [facility] Address: [address] [place] [address] Result Comment: Gyne cologic Cytology Report Case: [id number] Authorizing Provider: Arleth Lau, Collected: 06/19/2024 10:28 AM PERINATAL SOCIAL WORKER.STORAGE MANAGER Ordering Location: Gynecology Received: 06/19/2024 12:39 PM First Screen: Analia Anaya, CHON, ASCP Specimen: Pap Test, ThinPrep, Cervix Performed By: #### L [id number], HPVHRT ####[facility] LABCLIA [id number] [place] [address] [place] Order Comment: Speci men Type: TISSUE SPECIMENOrdering Facility: [facility] Address: [address] [place] [address] Result Comment: [facility] Pathology Report Case: [id number] Authorizing Provider: Arleth Lau, Collected: 06/19/2024 10:28 AM PERINATAL SOCIAL WORKER.STORAGE MANAGER Ordering Location: Gynecology Received: 06/19/2024 01:16 PM Pathologist: Devyn Byrd MD Specimen: Endometrium, Biopsy Performed By: #### S ####[facility]ORATORYCLIA [id number] [place] [address] [place] [facility] LABCLIA [id number] [place] [address] [place]#### [id number] ####[facility] LABCLIA [id number] [place] [address] [place] CLINICAL HISTORY, CYTOLOGY, INSPECTOR BALANCE BRIDGE Menopausal Normal [facility] Comment on above: Order Comment: Speci men Type: FLUID SPECIMENOrdering Facility: [facility] Address: [address] [place] [address] Performed By: #### L [id number], HPVHRT ####[facility] LABCLIA [id number] [place] [address] [place] CYTOLOGY PAP OTHER INT Fungal organisms morphologically consistent with Thanh species. Normal [facility] Comment on above: Order Comment: Speci men Type: FLUID SPECIMENOrdering Facility: [facility] Address: [address] [place] [address] Performed By: #### L [id number], HPVHRT ####[facility] LABCLIA [id number] [place] [address] [place] FINAL PERFORMING LAB [facility] Comment on above: Order Comment: Speci men Type: FLUID SPECIMENOrdering Facility: [facility] Address: [address] [place], [place] [address] Result Comment: Tech nical component, horizontal boring mill operator screening performed at [facility], [address] [id number] CLIA# [id number] Diagnostic interpretation performed at [facility], [address] [place], [place] [address] CLIA# [id number] Transportation Equipment Painter: Daniel Vasquez M.D. Performed By: #### L [id number], HPVHRT ####[facility] LABCLIA [id number] [place] [address] [place] Order Comment: Speci men Type: TISSUE SPECIMENOrdering Facility: [facility] Address: [address] [place], [place] [address] Result Comment: Diag nostic interpretation performed at [facility], [address] [place] [id number] CLIA# [id number] Transportation Equipment Painter: Devyn Byrd M.D. Performed By: #### S ####[facility]ORATORYCLIA [id number] [place] [address] [place] [facility] LABCL[facility] [id number] [place] [address] [place]#### [id number] ####[facility] LABCLIA [id number] [place] [address] [place] INTERPRETATION, CYTOLOGY, INSPECTOR BALANCE BRIDGE Normal [facility] Comment on above: Order Comment: Speci men Type: FLUID SPECIMENOrdering Facility: [facility] Address: [address] [place], [place] [address] Result Comment: Nega tive for intraepithelial lesion or malignancy. Performed By: #### L [id number], HPVHRT ####[facility] LABCLIA [id number] [address] [place] PAP DISCLAIMER COMMENT The Pap Smear is a screening test for cervical cancer. False negative results occur with all screening tests, emphasizing the need for rescreening at recommended intervals, and clinical correlation. Normal [facility] Comment on above: Order Comment: Speci men Type: FLUID SPECIMENOrdering Facility: [facility] Address: [address] [place] [address] Performed By: #### L [id number], HPVHRT ####[facility] LABCLIA [id number] [address] [place] PAP GRAIN II FARMWORKER COMMENT This specimen has be en analyzed by the ThinPrep Imaging System, an automated imaging and review system, which assists the laboratory in evaluating cells on ThinPrep Pap tests. Following automated imaging, selected toro from every slide are reviewed by a horizontal boring mill operator. Normal [facility] Comment on above: Order Comment: Speci men Type: FLUID SPECIMENOrdering Facility: [facility] Address: [address] [place] [address] Performed By: #### L [id number], HPVHRT ####[facility] LABIA [id number] [address] [place] POLE PYROSEQUENCINGon 2023 POLE PYROSEQUENCING RESULT Normal [facility] Comment on above: Order Comment: Speci [facility] Type: TISSUE SPECIMENOrdering Facility: [facility] Address: [address] [place] [address] Result Comment: POLE Pyrosequencing Laboratory Accession Number: [id number] Case #: [id number] Part ID: N/A Sample Type: FFPET % Tumor: 70 RESULT: Not Detected INTERPRETATION: A hotspot POLE mutation was not detected in this specimen. Please see methods, evaluated pathogenic mutations and test limitations below. POLE encodes for the DNA polymerase episolon catalytic subunit, an enzyme with a crucial role in DNA replication and repair. Pathogenic missense somatic mutations in the POLE exonuclease domain (codons 268-471) lead to genomic instability and ultra-high tumor mutational burden. Pathogenic POLE mutations leading to ultra-mutated phenotype are most frequently observed in colorectal and endometrial cancer, and POLE mutations define a molecular subtype of endometrial carcinoma, POLE-mutated endometrial cancer, which confers a more favorable prognosis. Patients whose tumors contain these mutations may be candidates for treatment with anti-PD-1 antibodies, such as nivolumab, pembrolizumab and dostarlimab. The clinically significant mutations detected by this assay are associated with POLE enzyme loss of function and hypermutator phenotype. METHODS: Formalin-fixed, paraffin-embedded tissue (FFPE) is microdissected to enrich for tumor cells, with a goal of enriching to greater than 40 percent tumor purity. Genomic DNA is extracted and PCR amplification of five targeted regions from exons 9-14 in the POLE gene is then performed. Sixteen missense mutations located in the exonuclease domain (codons 286 to 459) are analyzed by pyrosequencing of the amplicons using the [employer] instrument (Qiagen, [place], please see Evaluated POLE Hotspots below). A percent variant signal for each variant is calculated by comparison to reference peaks in the generated sequence. Pyrograms are manually reviewed to confirm a call. Variant signal less than 10 percent is reported a negative result; signals 10-30 percent are repeated for confirmation, and if confirmed, are reported as a positive result; signals greater than 30 percent are considered positive. Evaluated POLE ([id number]) Hotspots Exon 9: P286R (c.857C>G) P286L (c.857C>T) M295R (c.884T>G) S297F (c.890C>T) Exon 11: F367S (c.1100T>C) F367C (c.1100T>G) D368Y (c.1102G>T) D368N (c.1102G>A) Exon 13: V411L (c.1231G>C and c.1231G>T) L424I (c.1270C>A) P436R (c.1307C>G) M444K (c.1331T>A) Exon 14: A456P (c.1366G>C) S459F (c.1376C>T) S459Y (c.1376C>A) LIMITATIONS: This test is designed to detect only the sixteen variants described above in the POLE gene. Other variants in POLE will not be identified by this test. Uncommon variants or single nucleotide polymorphisms may affect binding of PCR and sequencing primers and may rarely result in false negative or false positive. The lower limit of detection (LOD) of this assay is approximately 20 percent variant allele fraction for all analyzed variants at 85 percent sensitivity; the assay has 95 percent sensitivity for detecting variants at or above 35 percent variant allele fraction. A minimum of 40 percent tumor purity is recommended for this assay; the assay has decreased sensitivity when tumor purity is below this and may result in false negative or indeterminate results. A negative result does not preclude the possibility of an alternative hotspot variant. Tumor heterogeneity, tumor burden, specimen degradation or other limitations of the technology may affect the sensitivity and LOD. Interfering substances, specifically formalin, decalcification agents, fixation agents containing heavy metals or preservation of buffy coats using Buck's Balanced Salt Solution (HBSS) can potentially affect assay performance. REFERENCES: 1) Diego Heath, et al. A panoply of errors: polymerase proofreading domain mutations in cancer. Nicole Rev Cancer. 2016 Sep;16(2):71-81. 2) Hatakeyama K, et al. Molecular profiling and sequential somatic mutation shift in hypermutator tumours harbouring POLE mutations. Sci Rep. 2018 Jan 7;8(1):8700. 3) Gaurav D, et al. Somatic POLE exonuclease domain mutations are early events in sporadic endometrial and colorectal carcinogenesis, determining log driver mutational landscape, clonal neoantigen burden and immune response. J Pathol. 2018 Feb;245(3):283-296. 4) Godfrey C, et al. Immune profiling of microsatellite instability-high and polymerase epsilon (POLE)-mutated metastatic colorectal tumors identifies predictors of response to anti-PD-1 therapy. J Gastrointest Oncol. 2018 Jan;9(3):404-415. 5) Tristan US, et al. POLE Mutation Spectra Are Shaped by the Mutant Allele Identity, Its Abundance, and Mismatch Repair Status. Mol Cell. 202;78(6). 6) Lamberto-Rajat A, et al. Interpretation of somatic POLE mutations in endometrial carcinoma. J Pathol. 202;250(3):323-335. 7) Sheri BERTRAND et al. POLE/POLD1 mutation in non-exonuclease domain matter (more content not included)... Performed By: #### P OLE ####CLARITY ILLUMINA LIMSCLIA [id number] [address] SURGICAL PATHOLOGYon 10-24-2 024 CLINICAL HISTORY complex hyperplasia in past Normal [facility] Comment on above: Order Comment: Speci men Type: TISSUE SPECIMENOrdering Facility: [facility] Address: [address] [place] [address] Performed By: #### S ####[facility] LABORATORYCLIA [id number] [address] LABCLIA [id number] [address]#### [id number] ####[facility] LABCLIA [id number] [address] DIAGNOSIS COMMENT Normal [facility] Comment on above: Order Comment: Speci men Type: TISSUE SPECIMENOrdering Facility: [facility] Address: [address] [place] [address] Result Comment: The following immunohistochemical stains with appropriate controls were performed and the results support the interpretation above: p53 - wild-type staining pattern; ER - diffuse positivity; IL - patchy positivity; Napsin A - nonspecific focal positivity. Immunohistochemistry for MMR proteins, as well as POLE Pyrosequencing, are pending and the results will be reported separately. Dr. Acuña reviewed H&E slide [id number] in intradepartmental consultation with concurrence. The diagnosis was reported by secure staff message to Arleth Lau APRN.CNP on 06/27/2024 at 0937. Laboratory Developed Test (LDT) Disclaimer: Performance characteristics of immunohistochemical, immunofluorescent and chromogenic in-situ hybridization tests have been determined by the performing laboratory within [facility]???s Lauri Hastings Pathology and Laboratory Medicine Department ([facility], [facility], [facility], [facility], [facility], [facility], [facility]) in a manner consistent with CLIA requirements. One or more of these tests have not been cleared or approved by the FDA. [facility] is regulated under CLIA as qualified to perform high-complexity testing. These tests are used for clinical purposes. They should not be regarded as investigational or for research. Positive and negative controls stain appropriately. 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 [facility] 06/27/2024 Performed By: #### S ####[facility] LABORATORYCLIA [id number] [place] [id number] [facility] LABCLIA [id number] [place] [address] [place]#### [id number] ####[facility] LABCLIA [id number] [place] [address] [place] GROSS DESCRIPTION Normal [facility] Comment on above: Order Comment: Speci men Type: TISSUE SPECIMENOrdering Facility: [facility] Address: [address] [place] [address] Result Comment: A. E ndometrium, Biopsy Received in formalin are multiple wells-white to brown, soft feathery segments of tissue admixed with mucinous material aggregating to 2.8 x 2.7 x 0.2 cm. Totally submitted in one cassette. DB June 19, 2024 2:36 PM Gross examination performed at [facility], [address] [place] [address] Performed By: #### S ####[facility] LABORATORYCLIA [id number] [address] LABCLIA [id number] [address]#### [id number] ####[facility] LABCLIA [id number] [address] Hu 05-21-2024 CNPN Telephone (OBGYWM) ----- SANTA RAHMAN ([id number]) 1955 F Date Time Provider Department 05/21/24 HUNTER HER During your visit today, we recorded the following information about you: Hunter Her MD 05/21/2024 9:58 AM Signed Please contact patient and relay referral to [facility] for evaluation of thickened endometrium. We are not able to accomplish this in our office as we were unable to visualize the cervix. MD Turner Bhatti Jennifer, RN 05/21/2024 11:11 AM Signed Attempted to contact patient. No answer and unable to leave a voicemail. Mailbox is full. RONAK Chandra Teresa, RN 05/28/2024 4:58 PM Signed Patient informed and phone number given to patient. Allergies As of Date: 05/21/2024 (No Known Allergies) Date Reviewed: 05/08/2024 Reviewed by: Blanche Sharpe LPN - Fully Assessed Reason for Visit: Results [95] Primary Visit Diagnosis:Thickened endometrium [R93.89] Order(s):CONSULT TO MINIMALLY INVASIVE GYNECOLOGIC SURGERY [[id number]] Order #: [id number]: 1 FUTURE Prescriptions as of 05/28/2024 - albuterol HFA (PROVENTIL HFA, VENTOLIN HFA) 90 mcg/actuation inhaler Inhale 1 Puff as instructed every 4 hours as needed. - amLODIPine (NORVASC) 10 mg tablet Take 10 mg by mouth once daily. - Colestipol HCl 5 gram granules Take 5 g by mouth once daily. - hydroCHLOROthiazide 25 mg tablet Take 25 mg by mouth once daily. - losartan (COZAAR) 100 mg tablet 100 mg once daily. - metoprolol tartrate, short acting, (LOPRESSOR) 50 mg tablet Take 50 mg by mouth two times a day. Problem List As Of Date 05/21/2024 Noted Resolved PMB (postmenopausal bleeding) [N95.0] 05/16/2024 Fibroids, subserous [D25.2] 05/16/2024 Abnormal ultrasound of endometrium [R93.5] 05/16/2024 Thickened endometrium [R93.89] 05/16/2024 Encounter Status:Closed by HUNTER HER on 05/21/24 Normal [facility] US [facility] 05-16-2024 [facility] 05-15-2024 Radiology Study observation (narrative) [facility] 05-13-2024 CNPN Telephone (OBGYWM) ----- SANTA RAHMAN ([id number]) 1955 F Date Time Provider Department 05/13/24 HUNTER HER OBJOYCEWMartha During your visit today, we recorded the following information about you: Marianela Diaz RN 05/13/2024 10:54 AM Signed Received records from [facility]. Placed in AT's mailbox to review when he returns tomorrow to office. Marianela Diaz RN Allergies As of Date: 05/13/2024 (No Known Allergies) Date Reviewed: 05/08/2024 Reviewed by: Blanche Sharpe LPN - Fully Assessed Reason for Visit: Received Outside Medical Records [3576] Prescriptions as of 05/13/2024 - albuterol HFA (PROVENTIL HFA, VENTOLIN HFA) 90 mcg/actuation inhaler Inhale 1 Puff as instructed every 4 hours as needed. - amLODIPine (NORVASC) 10 mg tablet Take 10 mg by mouth once daily. - Colestipol HCl 5 gram granules Take 5 g by mouth once daily. - hydroCHLOROthiazide 25 mg tablet Take 25 mg by mouth once daily. - losartan (COZAAR) 100 mg tablet 100 mg once daily. - metoprolol tartrate, short acting, (LOPRESSOR) 50 mg tablet Take 50 mg by mouth two times a day. Problem List As Of Date: 05/13/2024 (None) Encounter Status:Closed by MARIANELA DIAZ on 05/13/24 [facility] CNOVon 05-08-2024 CNOV Office Visit (OBGYWM ) ----- SANTA RAHMAN ([id number]) 1955 F Date Time Provider Department 05/08/24 10:30 AM HUNTER HER OBREMBERTO During your visit today, we recorded the following information about you: Blood pressure Weight Height 152/88 164.2 kg 1.638 m Blanche Sharpe LPN 05/08/2024 11:55 AM Signed Launch Leader offered: Patient accepts, visit chaperoned by Maria Guadalupe Sharpe. The sensitive examination was discussed with the Patient or Patient's Authorized Utilization Review Coordinator. As applicable, any other physician, advance practice provider, medical student, or other health professional student that will be observing or involved in the sensitive examination for educational or training purposes was discussed with the Patient or Authorized Utilization Review Coordinator. The Patient or Authorized Utilization Review Coordinator has agreed to proceed with the sensitive examination. (Sensitive examination includes inspection and/or palpation of the breasts, pelvis, prostate and anorectal regions) Santa is a 68 year old who presents today for an endometrial biopsy for postmenopausal bleeding with a hx of complex endometrial hyperplasia identified on DANMO on 03/25/12 test: n/a UNIVERSAL PROTOCOL / SAFETY CHECKLIST Procedure to be Performed: endometrial bx Sign In: A Moment of CARE was completed. Personnel directly involved with the procedure wore the appropriate PPE (Personal Protective Equipment). Patient/Surrogate Stated/Verified: PATIENT VERIFIED(optional for EMERGENT procedures): Patient name, Date of , Relevant allergies, and The intended procedure Time Out Communication: Intended patient and procedure match the source documents. Consent documented and matches the intended procedure. Sign Out: SIGN OUT (optional for EMERGENT procedures): unable to visualize cervix and could not perfor procedure PROCEDURE: EXTERNAL GENITALIA: Normal in appearance without lesions VAGINA: very deep BIOPSY: Speculum placed into the vagina and unable to visualize cervix Procedure Summary: Patient tolerated procedure well. ASSESSMENT: post menopausal bleeding x 6mo w hx of complex endometrial hyperplasia w/o atypia untreated PLAN: Pelvic ultrasound and sampling in OR FTFT over multiple attempts at accessing the cervix > 60 min. MD Annemarie Bhatti Annalee, LPN 05/08/2024 11:08 AM Signed YOUR RECOVERY After your biopsy you may have: Vaginal bleeding (less than a normal menstrual period) Mild cramping Do NOT put anything in the vagina for 1 week after your endometrial biopsy. This includes: tampons douches and refraining from having sexual intercourse If you have any discomfort, you may take an over the counter pain medication (motrin, advil, ibuprofen, tylenol, etc). If this does not relieve your discomfort, contact the office. It is okay to wear a sanitary pad until the discharge and spotting stops. RISKS Although problems seldom occur with endometrial biopsies, there can be some complications. You may feel faint during and shortly after the procedure as well as have some bleeding after the procedure. There is also a risk of infection after the procedure. These complications are rare and can be easily treated. You should contact you doctor is you have any of the following: Heavy bleeding (more than your normal period) Bleeding with clots Severe abdominal pain Fever (more than 100.4F) Foul smelling vaginal discharge RESULTS We will have the results of your biopsy in 1-2 weeks. If you do not hear the results of your biopsy after 2 weeks, please contact the office for the results. If you have any additional questions or concerns please do not hesitate to contact the office. Referring Provider: SELF [200] Allergies As of Date: 05/08/2024 (No Known Allergies) Date Reviewed: 05/08/2024 Reviewed by: Blanche Sharpe LPN - Fully Assessed Reason for Visit: Endometrial Biopsy [7508] Primary Visit Diagnosis:Encounter for screening for malignant neoplasm of cervix [Z12.4] Other Visit Diagnosis:Postmenopausal bleeding [N95.0] Order(s):PELVIC [facility] [[id number]] Order #: [id number]: 1 FUTURE Prescriptions as of 05/08/2024 - albuterol HFA (PROVENTIL HFA, VENTOLIN HFA) 90 mcg/actuation inhaler Inhale 1 Puff as instructed every 4 hours as needed. - amLODIPine (NORVASC) 10 mg tablet Take 10 mg by mouth once daily. - Colestipol HCl 5 gram granules Take 5 g by mouth once daily. - hydroCHLOROthiazide 25 mg tablet Take 25 mg by mouth once daily. - losartan (COZAAR) 100 mg tablet 100 mg once daily. - metoprolol tartrate, short acting, (LOPRESSOR) 50 mg tablet Take 50 mg by mouth two times a day. Problem List As Of Date: 05/08/2024 (None) Other instructions from your clinician: YOUR RECOVERY After your biopsy you may have: Vaginal bleeding (less than a normal menstrua (more content not included)... Normal [facility] CBC, PLATELETS & MANUAL DIFF (07506)Ordered By: Bus Girl on 08-16-2022 Basophils (Bld) [#/Vol] 0.1 10*3/uL Normal 0.0-0.2 [facility]; [facility] Work Phone: Comment on above: PATIENT WAS FASTINGP ERFORMED BY: [facility]coJer[facility] CenterKeoavz2552 [facility] [id number]; wellness labs Basophils/100 WBC (Bld) 1 % Normal [facility]; [facility] Work Phone: Comment on above: PATIENT WAS FASTINGP ERFORMED BY: [facility] Vtzpmo8535 [facility] [id number]; wellness [facility] Eosinophils (Bld) [#/Vol] 0.2 10*3/uL Normal 0.0-0.4 [facility]; [facility] Work Phone: Comment on above: PATIENT WAS FASTINGP ERFORMED BY: [facility] Apdijp3760 [address] [facility] [id number]; [facility] Eosinophils/100 WBC (Bld) 3 % Normal [facility]; [facility] Work Phone: Comment on above: PATIENT WAS FASTINGP ERFORMED BY: [facility] Kfbskl1071 [facility] [id number]; [facility] Erythrocyte distribution width (RBC) [Ratio] 15.1 % Normal 11.7-15.4 [facility]; [facility] Work Phone: Comment on above: PATIENT WAS FASTINGP ERFORMED BY: [facility] Atigyi9450 [facility] [id number]; [facility] Hematocrit (Bld) [Volume fraction] 45.7 % Normal 34.0-46.6 [facility]; [facility] Work Phone: Comment on above: PATIENT WAS FASTINGP ERFORMED BY: [facility] Erxcol4775 [facility] [id number]; [facility] Hemoglobin (Bld) [Mass/Vol] 14.9 g/dL Normal 11.1-15.9 [facility]; [facility] Work Phone: Comment on above: PATIENT WAS FASTINGP ERFORMED BY: [facility] Wvimdk1042 [facility] [id number]; [facility] Immature granulocytes (Bld) [#/Vol] 0.0 10*3/uL Normal 0.0-0.1 [facility]; [facility] Work Phone: Comment on above: PATIENT WAS FASTINGP ERFORMED BY: [facility]6370 [facility] [id number]; [facility] Immature granulocytes/100 WBC (Bld) 0 % Normal [facility]; [facility] Work Phone: Comment on above: PATIENT WAS FASTINGP ERFORMED BY: [facility] CenterKkdetq9343 [facility] [id number]; wellness labs Lymphocytes (Bld) [#/Vol] 2.0 10*3/uL Normal 0.7-3.1 [facility]; [facility] Work Phone: Comment on above: PATIENT WAS FASTINGP ERFORMED BY: [place] [id number] [facility] [id number]; [facility] Lymphocytes/100 WBC (Bld) 28 % Normal [facility]; [facility] Work Phone: Comment on above: PATIENT WAS FASTINGP ERFORMED BY: [place] [id number] [facility] [id number]; [facility] MCH (RBC) [Entitic mass] 27.5 pg Normal 26.6-33.0 [facility]; [facility] Work Phone: Comment on above: PATIENT WAS FASTINGP ERFORMED BY: LabLisa [place] [id number] [facility] [id number]; wellness labs MCHC (RBC) [Mass/Vol] 32.6 g/dL Normal 31.5-35.7 [facility] prehensive Internal Medicine; [facility] Work Phone: Comment on above: PATIENT WAS FASTINGP ERFORMED BY: [place] [id number] [facility] [id number]; wellness [facility] MCV (RBC) [Entitic vol] 85 fL Normal 79-97 [facility]; [facility] Work Phone: Comment on above: PATIENT WAS FASTINGP ERFORMED BY: LabL[place] [id number] [facility] [id number]; wellness labs Monocytes (Bld) [#/Vol] 0.6 10*3/uL Normal 0.1-0.9 [facility]; [facility] Work Phone: Comment on above: PATIENT WAS FASTINGP ERFORMED BY: CB [facility] Ngxmeq1269 [address] RoadDublin [place] [id number]; wellness labs Monocytes/100 WBC (Bld) 8 % Normal [facility]; [facility] Work Phone: Comment on above: PATIENT WAS FASTINGP ERFORMED BY: CB [facility] Bczxxb5148 [address] RoadDublin [place] [id number]; [facility] Neutrophils (Bld) [#/Vol] 4.1 10*3/uL Normal 1.4-7.0 [facility]; [facility] Work Phone: Comment on above: PATIENT WAS FASTINGP ERFORMED BY: CB [facility] Joxjox5178 [address] RoadDublin [place] [id number]; [facility] Neutrophils/100 WBC (Bld) 60 % Normal [facility]; [facility] Work Phone: Comment on above: PATIENT WAS FASTINGP ERFORMED BY: CB [facility] Dkmtbo2487 [address] RoadDublin [place] [id number]; [facility] Platelets (Bld) [#/Vol] 315 10*3/uL Normal 150-450 [facility]; [facility] Work Phone: Comment on above: PATIENT WAS FASTINGP ERFORMED BY: CB [facility] Twjcdk0823 [address] RoadDublin [place] [id number]; [facility] RBC (Bld) [#/Vol] 5.41 10*6/uL Abnormal 3.77-5.28 Compr ehensive [facility]; [facility] Work Phone: Comment on above: PATIENT WAS FASTINGP ERFORMED BY: CB [facility] Nexdhe3553 [address] RoadDublin [place] [id number]; [facility] WBC (Bld) [#/Vol] 6.9 10*3/uL Normal 3.4-10.8 Compre hensive [facility]; [facility] Work Phone: Comment on above: PATIENT WAS FASTINGP ERFORMED BY: CB [facility] Nvyglz4051 [address] RoadDublin [place] [id number]; wellness labs METABOLIC PANEL, ANTONINOI SOCRATES ([id number])Ordered By: Bus Girl on 08-16-2022 Albumin [Mass/Vol] 4.5 g/dL Normal 3.8-4.8 [facility]; [facility] Work Phone: Comment on above: PATIENT WAS FASTINGP ERFORMED BY: CB [facility] Xqrjhl2570 [address] RoadDublin [place] [id number] Albumin/Globulin [Mass ratio] 1.7 {ratio} Normal 1.2-2.2 [facility]; [facility] Work Phone: Comment on above: PATIENT WAS FASTINGP ERFORMED BY: CB [facility] Eywrwm2061 [address] Roadblin [place] [id number] ALP [Catalytic activity/Vol] 80 U/L Normal 44-121 [facility]; [facility] Work Phone: Comment on above: PATIENT WAS FASTINGP ERFORMED BY: CB [facility] Ybhzve9153 [address] Roadblin [place] [id number] ALT [Catalytic activity/Vol] 33 U/L Abnormal 0-32 [facility]; [facility] Work Phone: Comment on above: PATIENT WAS FASTINGP ERFORMED BY: CB [facility] Fxsgdy0836 [address] [facility] [place] [id number] AST [Catalytic activity/Vol] 14 U/L Normal 0-40 [facility]; [facility] Work Phone: Comment on above: PATIENT WAS FASTINGP ERFORMED BY: CB [facility] Ocjyms3163 [address] Roadblin [place] [id number] Bilirubin [Mass/Vol] 0.4 mg/dL Normal 0.0-1.2 [facility]; [facility] Work Phone: Comment on above: PATIENT WAS FASTINGP ERFORMED BY: CB [facility] Caojbt1381 [address] RoadDublin [place] [id number] Calcium [Mass/Vol] 9.7 mg/dL Normal 8.7-10.3 [facility]; [facility] Work Phone: Comment on above: PATIENT WAS FASTINGP ERFORMED BY: CHRIS [facility] Jhcbny1125 [address] RoadDublin [place] [id number] Chloride [Moles/Vol] 104 mmol/L Normal 96-106 [facility] rehensive Internal Medicine; [facility] Work Phone: Comment on above: PATIENT WAS FASTINGP ERFORMED BY: CHRIS [facility] Ohglos4112 [address] RoadDublin [place] [id number] CO2 [Moles/Vol] 24 mmol/L Normal 20-29 [facility]; [facility] Work Phone: Comment on above: PATIENT WAS FASTINGP ERFORMED BY: CHRIS [facility] Gmklgo0870 [address] RoadDublin [place] [id number] Creatinine [Mass/Vol] 0.51 mg/dL Abnormal 0.57-1.00 [facility]; [facility] Work Phone: Comment on above: PATIENT WAS FASTINGP ERFORMED BY: CHRIS [facility] Xvowgt0343 [address] Roadblin [place] [id number] GFR/1.73 sq M.predicted among non-blacks MDRD (S/P/Bld) [Vol rate/Area] 104 mL/min/{1.73_m2} Normal [facility]; [facility] Work Phone: Comment on above: PATIENT WAS FASTINGP ERFORMED BY: CHRIS [facility] Prnywn0452 [address] RoadDuin [place] [id number] Globulin (S) [Mass/Vol] 2.6 g/dL Normal 1.5-4.5 [facility]; [facility] Work Phone: Comment on above: PATIENT WAS FASTINGP ERFORMED BY: CHRIS [facility] Kywioq8836 [address] RoadDublin [place] [id number] Glucose [Mass/Vol] 97 mg/dL Normal 70-99 [facility]; [facility] Work Phone: Comment on above: PATIENT WAS FASTINGP ERFORMED BY: CHRIS [facility] Kohhfu0690 [address] RoadDublin [place] [id number] Potassium [Moles/Vol] 4.1 mmol/L Normal 3.5-5.2 [facility] prehensive Internal Medicine; [facility] Work Phone: Comment on above: PATIENT WAS FASTINGP ERFORMED BY: [facility] Olrefz36[address] [facility]in [place] [id number] Protein [Mass/Vol] 7.1 g/dL Normal 6.0-8.5 [facility]; [facility] Work Phone: Comment on above: PATIENT WAS FASTINGP ERFORMED BY: [facility] Wedaoy1329 [address] RoadDuin [place] [id number] Sodium [Moles/Vol] 142 mmol/L Normal 134-144 [facility]; [facility] Work Phone: Comment on above: PATIENT WAS FASTINGP ERFORMED BY: [facility] Dyjtya9099 [address]z RoadCatawba Valley Medical Centerin [place] [id number] Urea nitrogen [Mass/Vol] 15 mg/dL Normal 8-27 [facility]; [facility] Work Phone: Comment on above: PATIENT WAS FASTINGP ERFORMED BY: [facility] Hjrafp5630 [address] RoadDublin [place] [id number] Urea nitrogen/Creatinine [Mass ratio] 29 mg/mg Abnormal 12- [facility]; [facility] Work Phone: Comment on above: PATIENT WAS FASTINGP ERFORMED BY: [facility] Emeoqb2503 [facility] [id number] HgA1C , Office ([id number])Ordere d By: Wanda Puente on 07-25-2022 HbA1c (Bld) [Mass fraction] 5.6 % Normal 4.6 - 7.1 [facility]; [facility] Work Phone: Provider Note - ED v3on 03-27 Provider Note - ED v3 Provider Note: Chart Review HISTORY OF PRESENTING ILLNESS SANTA is a 66 year old Female and was seen by me at 06-Apr-2022 11:30. The historian is the patient. Triage Information: Most recent Vital Sign Value Date PAST MEDICAL HISTORY ALLERGIES/INTOLERANCES: Intolerance Allergen: sulfa drugs Type: Drug Category Reaction: Unknown HEALTH HISTORY: History of HTN, obesity, and MORGAN - wears CPAP nightly. Family history: no pertinent history. Social history: currently employed. OUTPATIENT MEDICATIONS: Home Medications Review Status for Reconciliation: Complete Med Status: Patient Currently Takes Medications Drug Name: HYDROCHLOROTHIAZIDE 25MG TABLETS Instructions: 1 tab(s) orally once a day Drug Name: Metoprolol Tartrate 50 mg oral tablet Instructions: 1 tab(s) orally 2 times a day Drug Name: amLODIPine 10 mg oral tablet Instructions: 1 tab(s) orally once a day Drug Name: losartan 100 mg oral tablet Instructions: 1 tab(s) orally once a day Drug Name: CBD eatable Instructions: null Drug Name: Bactrim DS 800 mg-160 mg oral tablet Instructions: 1 tab(s) orally 2 times a day x 10 days. Take with food. SIGNIFICANT EVENTS: Immunizations Description:SARS-CoV-2 (COVID-19) Description:SARS-CoV-2 (COVID-19) Description:SARS-CoV-2 (COVID-19) Past Medical History Description:Hypertension (HTN) Past Surgical History Description:d&c No other known significant events or other known past surgical history. CRITICAL CARE RESULTS: Recent Lab Results: POCT Urinalysis today showed trace blood and 30 mg/dL protein. SG 1.015. See flowsheet for full result. VITAL SIGNS: T PRBP SpO2O2(LPM) %FiO2 Method 06-Apr-2022 11:13:[id number]/96 95 MDM MDM/ED COURSE: This note was generated with voice recognition software and may contain errors including spelling, grammar, syntax, and misrecognization of what was dictated CHIEF COMPLAINT R flank pain, urinary frequency/urgency HISTORY OF PRESENT ILLNESS Patient presents for evaluation of urinary frequency/urgency with R flank discomfort x 2-3 days. She reports has also had mild suprapubic discomfort and had chills yesterday. Denies burning with urination, fever, visible blood in urine, malaise, lethargy, nausea/vomiting, bloating, abdominal distention/pain, change in bowel habits, and vaginal symptoms. Pain scale for flank: 3-4/10 - reports just a little uncomfortable and is constant - not particularly exacerbated or alleviated by any factors. Reports has had several episodes of urinary incontinence d/t the degree of urgency/frequency she is having, at times. Denies colicky pain. Patient reports has had similar symptoms in the past and was diagnosed with a UTI and kidney infection. Has been taking Tylenol PRN with some relief; has not tried any other OTC medications for her symptoms. Has listed intolerance to Sulfa - reports caused irregular menses years ago; no other known drug allergies or intolerances. REVIEW OF SYSTEMS 10 systems reviewed negative with exception of history of present illness listed above PHYSICAL EXAMINATION General: Pleasant, well-nourished female; alert and oriented, in no acute distress. Sitting comfortably on exam table. Eyes: Pupils equal, round and reactive to light. Eyes non-icteric, conjunctiva clear. HENT: Normocephalic. Oral mucosa moist. Neck: Supple. No lymphadenopathy. Respiratory: Lungs are clear to auscultation; no wheezes, rhonchi, or rales. Respirations unlabored, Breath sounds are equal, Symmetrical chest wall expansion. Cardiovascular: Regular rate, Regular rhythm. Normal S1S2. No m/r/g. Gastrointestinal: Soft, non-tender, non-distended; no palpable masses or organomegaly. No suprapubic tenderness; no RRG. Bowel sounds normoactive. Mild R CVA tenderness. Musculoskeletal: Grossly normal; appropriate for age. Integumentary: [place], warm, dry, and intact. No rashes or skin discoloration appreciated. Good skin turgor. Neurologic: Alert and oriented; grossly intact. Cognition and Speech: Oriented, Speech clear and coherent. Psychiatric: Cooperative, Appropriate mood & affect. MEDICAL DECISION MAKING Course: Worsening; stable. Impression/Plan: Reviewed UA findings; discussed multiple potential etiologies for recent symptoms. Has not eaten yet today- typically does not eat breakfast. Has mild CVA tenderness, but is afebrile, and no other red flags on exam. Discussed recommendation for imaging to further r/o red flags (infection, renal calculi, gallbladder issue, etc) - patient declines at this point and states will go to the ER if symptoms worsen, but at this point, would like to attempt management on an outpatient basis, without imaging. Patient will be discharged home with oral antibiotics -Bactrim BID x 10 days to cover for early pyelonephritis, to err on the side of caution. Instru (more content not included)... Normal [facility] URINE CULTURE,BACTERIALon URINE CULTURE,BACTERIAL PATIENT: SANTA RAHMAN LOCATION: [address]#: [id number] : 57 AGE: SEX: F ORDERED BY: JUAN CARLOS RAINEY SOURCE: URINE COLLECTED: 04/06/22 12:14 ANTIBIOTICS AT JOAN.: RECEIVED : 04/07/22 00:01 SITE: Clean Catch/Voided R E S U L T S URINE CULTURE,BACTERIAL FINAL 04/07/22 16:43 NO SIGNIFICANT GROWTH. Normal [facility] Comment on above: Performed By: #### U [facility] #### [facility] [id number] [place] [address] CALCIFIDIOL ([id number]) VIT D 25 Ordered By: Bus Girl on 11-07-2021 25-hydroxyvitamin D [Mass/Vol] 31.6 ng/mL Normal 30.0-100.0 [facility]; [facility] Work Phone: Comment on above: Vitamin D deficiency has been defined by the [place] of[employer] and an Endocrine Society practice guideline as alevel of serum 25-OH vitamin D less than 20 ng/mL (1,2).The Endocrine Society went on to further define vitamin Dinsufficiency as a level between 21 and 29 ng/mL (2).1. IOM ([place] of [employer]). 2010. Dietary reference intakes for calcium and D. [place]: The National Academies Press.2. Amara MF, Pat NC, Enrike MICHAELS, et al. Evaluation, treatment, and prevention of vitamin D deficiency: an Endocrine Society clinical practice guideline. JCEM. 2010; 96(7):1911-30. PATIENT WAS FASTINGP ERFORMED BY: [facility] [id number] CBC with auto diff ([id number])Or dered By: Bus Girl on 11-07-2021 Basophils (Bld) [#/Vol] 0.1 10*3/uL Normal 0.0-0.2 [facility]; [facility] Work Phone: Comment on above: PATIENT WAS FASTINGP ERFORMED BY: [facility] Ieqghe9[address] RoadDublin [place] [id number] Basophils/100 WBC (Bld) 1 % Normal [facility]; [facility] Work Phone: Comment on above: PATIENT WAS FASTINGP ERFORMED BY: [facility] Tksykl5881 [address] RoadDublin [place] [id number] Eosinophils (Bld) [#/Vol] 0.2 10*3/uL Normal 0.0-0.4 [facility]; [facility] Work Phone: Comment on above: PATIENT WAS FASTINGP ERFORMED BY: [facility] Nctiza3278 [address]blin [place] [id number] Eosinophils/100 WBC (Bld) 3 % Normal [facility]; [facility] Work Phone: Comment on above: PATIENT WAS FASTINGP ERFORMED BY: [facility] [facility] [id number] Erythrocyte distribution width (RBC) [Ratio] 14.9 % Normal 11.7-15.4 [facility]; [facility] Work Phone: Comment on above: PATIENT WAS FASTINGP ERFORMED BY: [facility] Pdycaa[address] [facility] [place] [id number] Hematocrit (Bld) [Volume fraction] 46.2 % Normal 34.0-46.6 [facility]; [facility] Work Phone: Comment on above: PATIENT WAS FASTINGP ERFORMED BY: [facility] Zbhwnp6137 [address] RoadCatawba Valley Medical Centerin [place] [id number] Hemoglobin (Bld) [Mass/Vol] 15.2 g/dL Normal 11.1-15.9 [facility]; [facility] Work Phone: Comment on above: PATIENT WAS FASTINGP ERFORMED BY: [facility] Wfncxc2646 [address] RoadDublin [place] [id number] Immature granulocytes (Bld) [#/Vol] 0.0 10*3/uL Normal 0.0-0.1 [facility]; [facility] Work Phone: Comment on above: PATIENT WAS FASTINGP ERFORMED BY: [facility] Mtuoyj[address] [facility] [place] [id number] Immature granulocytes/100 WBC (Bld) 0 % Normal [facility]; [facility] Work Phone: Comment on above: PATIENT WAS FASTINGP ERFORMED BY: LabcoJersey Shore University Medical CenterIyavan8[address] Roadblin [place] [id number] Lymphocytes (Bld) [#/Vol] 2.0 10*3/uL Normal 0.7-3.1 [facility]; [facility] Work Phone: Comment on above: PATIENT WAS FASTINGP ERFORMED BY: [facility] Quxasf[address] [facility]in [place] [id number] Lymphocytes/100 WBC (Bld) 26 % Normal [facility]; [facility] Work Phone: Comment on above: PATIENT WAS FASTINGP ERFORMED BY: [facility] [id number] MCH (RBC) [Entitic mass] 27.5 pg Normal 26.6-33.0 [facility]; [facility] Work Phone: Comment on above: PATIENT WAS FASTINGP ERFORMED BY: [facility] [facility] [id number] MCHC (RBC) [Mass/Vol] 32.9 g/dL Normal 31.5-35.7 [facility] prehensive Internal Medicine; [facility] Work Phone: Comment on above: PATIENT WAS FASTINGP ERFORMED BY: LabcoJersey Shore University Medical CenterKiupic[address] [facility]in [place] [id number] MCV (RBC) [Entitic vol] 84 fL Normal 79-97 [facility]; [facility] Work Phone: Comment on above: PATIENT WAS FASTINGP ERFORMED BY: LabcoJersey Shore University Medical CenterLlknjf[address] [facility]blin [place] [id number] Monocytes (Bld) [#/Vol] 0.7 10*3/uL Normal 0.1-0.9 [facility]; [facility] Work Phone: Comment on above: PATIENT WAS FASTINGP ERFORMED BY: CHRIS [facility] Ulevre6573 [address] RoadDublin [place] [id number] Monocytes/100 WBC (Bld) 9 % Normal [facility]; [facility] Work Phone: Comment on above: PATIENT WAS FASTINGP ERFORMED BY: CB [facility] Ahakhq5074 [address] RoadDublin [place] [id number] Neutrophils (Bld) [#/Vol] 4.9 10*3/uL Normal 1.4-7.0 [facility]; [facility] Work Phone: Comment on above: PATIENT WAS FASTINGP ERFORMED BY: CHRIS [facility] Stepsj0801 [address] RoadDublin [place] [id number] Neutrophils/100 WBC (Bld) 61 % Normal [facility]; [facility] Work Phone: Comment on above: PATIENT WAS FASTINGP ERFORMED BY: CB [facility] Opyayx8625 [address] RoadDublin [place] [id number] Platelets (Bld) [#/Vol] 306 10*3/uL Normal 150-450 [facility]; [facility] Work Phone: Comment on above: PATIENT WAS FASTINGP ERFORMED BY: CB [facility] Tgyizd6835 [address] RoadDublin [place] [id number] RBC (Bld) [#/Vol] 5.53 10*6/uL Abnormal 3.77-5.28 Compr ehensive [facility] Medicine; [facility] Work Phone: Comment on above: PATIENT WAS FASTINGP ERFORMED BY: CB [facility] Qpeehg3521 [address] RoadDublin [place] [id number] WBC (Bld) [#/Vol] 7.9 10*3/uL Normal 3.4-10.8 Compre hensive [facility]; [facility] Work Phone: Comment on above: PATIENT WAS FASTINGP ERFORMED BY: CB [facility] Hofysg3710 [address] RoadDublin [place] [id number] LIPID PANEL (95393)Ordered B y: Bus Girl on 11-07-2021 Cholesterol [Mass/Vol] 218 mg/dL Abnormal 100-199 [facility]; [facility] Work Phone: Comment on above: PATIENT WAS FASTINGP ERFORMED BY: CB [facility] Lfleis3437 [address] RoadDublin [place] [id number] Cholesterol in HDL [Mass/Vol] 50 mg/dL Normal [facility]; [facility] Work Phone: Comment on above: PATIENT WAS FASTINGP ERFORMED BY: CB [facility] Gtmwkf6313 [address] RoadDublin [place] [id number] Triglyceride [Mass/Vol] 176 mg/dL Abnormal 0-149 [facility]; [facility] Work Phone: Comment on above: PATIENT WAS FASTINGP ERFORMED BY: CB [facility] Pzbtfr3819 [address] RoadDublin [place] [id number] LIPID PANEL (53850) 31 mg/dL Normal 5-40 Compr ensive [facility]; [facility] Work Phone: Comment on above: PATIENT WAS FASTINGP ERFORMED BY: CB [facility] Aduuio9954 [address] RoadDublin [place] [id number] LIPID PANEL (19930) 137 mg/dL Abnormal 0-99 Compr ensive [facility]; [facility] Work Phone: Comment on above: PATIENT WAS FASTINGP ERFORMED BY: CB [facility] Eeioyw3049 [address] RoadDublin [place] [id number] LIPID PANEL (93347) 2.7 {ratio} Normal 0.0-3.2 Comp [facility]ensive [facility]; [facility] Work Phone: Comment on above: LDL/HDL Ratio Men Wo men 1/2 Avg.Risk 1.0 1.5 Avg.Risk 3.6 3.2 2X Avg.Risk 6.2 5.0 3X Avg.Risk 8.0 6.1 PATIENT WAS FASTINGP ERFORMED BY: CB [facility] Lktbpl2872 [address] RoadDublin [place] [id number] METABOLIC PANEL, COMPREHENSI VE (72093)Ordered By: Bus Girl on 11-07-2021 Albumin [Mass/Vol] 4.5 g/dL Normal 3.8-4.8 [facility]; [facility] Work Phone: Comment on above: PATIENT WAS FASTINGP ERFORMED BY: CB [facility] Kkmiol0829 [address] RoadDublin [place] [id number] Albumin/Globulin [Mass ratio] 1.6 {ratio} Normal 1.2-2.2 [facility]; [facility] Work Phone: Comment on above: PATIENT WAS FASTINGP ERFORMED BY: CB [facility] Orrbuj9640 [address] RoadDublin [place] [id number] ALP [Catalytic activity/Vol] 83 U/L Normal 44-121 [facility]; [facility] Work Phone: Comment on above: PATIENT WAS FASTINGP ERFORMED BY: CB [facility] Olpeiz4924 [address] RoadDublin [place] [id number] ALT [Catalytic activity/Vol] 31 U/L Normal 0-32 [facility]; [facility] Work Phone: Comment on above: PATIENT WAS FASTINGP ERFORMED BY: CB [facility] Amnuev4192 [address] RoadDublin [place] [id number] AST [Catalytic activity/Vol] 16 U/L Normal 0-40 [facility]; [facility] Work Phone: Comment on above: PATIENT WAS FASTINGP ERFORMED BY: CB [facility] Qjhkyq1408 [address] RoadDublin [place] [id number] Bilirubin [Mass/Vol] 0.5 mg/dL Normal 0.0-1.2 [facility]; [facility] Work Phone: Comment on above: PATIENT WAS FASTINGP ERFORMED BY: CB [facility] Tseadf6928 [address] RoadDublin [place] [id number] Calcium [Mass/Vol] 10.0 mg/dL Normal 8.7-10.3 [facility]; [facility] Work Phone: Comment on above: PATIENT WAS FASTINGP ERFORMED BY: CB [facility] Prrczz0297 [address] RoadDublin [place] [id number] Chloride [Moles/Vol] 101 mmol/L Normal 96-106 [facility] rehensive Internal Medicine; [facility] Work Phone: Comment on above: PATIENT WAS FASTINGP ERFORMED BY: [facility] Jqjmqk2904 [address] RoadDublin [place] [id number] CO2 [Moles/Vol] 25 mmol/L Normal 20-29 Comprehen [facility]; [facility] Work Phone: Comment on above: PATIENT WAS FASTINGP ERFORMED BY: [facility] Egpjab[address] [facility]in [place] [id number] Creatinine [Mass/Vol] 0.51 mg/dL Abnormal 0.57-1.00 [facility]; [facility] Work Phone: Comment on above: PATIENT WAS FASTINGP ERFORMED BY: [facility] Xjnjjh[address] [facility] [id number] GFR/1.73 sq M.predicted among non-blacks MDRD (S/P/Bld) [Vol rate/Area] 104 mL/min/{1.73_m2} Normal [facility]prehenslourdes [facility]; [facility] Work Phone: Comment on above: PATIENT WAS FASTINGP ERFORMED BY: [facility] Bujejc[address] [facility] [id number] Globulin (S) [Mass/Vol] 2.9 g/dL Normal 1.5-4.5 [facility]; [facility] Work Phone: Comment on above: PATIENT WAS FASTINGP ERFORMED BY: [facility] Aafzhs[address] [facility]in [place] [id number] Glucose [Mass/Vol] 94 mg/dL Normal 65-99 [facility]; [facility] Work Phone: Comment on above: PATIENT WAS FASTINGP ERFORMED BY: [facility] Vxiaxe58[address] [facility]in [place] [id number] Potassium [Moles/Vol] 4.3 mmol/L Normal 3.5-5.2 Com prehensive [facility]; [facility] Work Phone: Comment on above: PATIENT WAS FASTINGP ERFORMED BY: CHRIS [facility] Ivcbuy3582 [address] RoadDublin [place] [id number] Protein [Mass/Vol] 7.4 g/dL Normal 6.0-8.5 [facility]; [facility] Work Phone: Comment on above: PATIENT WAS FASTINGP ERFORMED BY: CB [facility] Vinlsu3299 [address] RoadDublin [place] [id number] Sodium [Moles/Vol] 141 mmol/L Normal 134-144 [facility]; [facility] Work Phone: Comment on above: PATIENT WAS FASTINGP ERFORMED BY: CHRIS [facility] Tatjtf9143 [address] RoadDublin [place] [id number] Urea nitrogen [Mass/Vol] 16 mg/dL Normal 8-27 [facility]; [facility] Work Phone: Comment on above: PATIENT WAS FASTINGP ERFORMED BY: CHRIS [facility] Ohazna9971 [address] RoadDublin [place] [id number] Urea nitrogen/Creatinine [Mass ratio] 31 mg/mg Abnormal 12-28 [facility]; [facility] Work Phone: Comment on above: PATIENT WAS FASTINGP ERFORMED BY: CHRIS [facility] Auavpa7290 [address] RoadDublin [place] [id number] URINALYSIS, W/ MICRO ([id number]) Ordered By: Bus Girl on 11-07-2021 Appearance (U) Clear Normal Comprehens domingo [facility]; [facility] Work Phone: Comment on above: PATIENT WAS FASTINGP ERFORMED BY: CB [facility] Pvkjaj5756 [address] RoadDublin [place] [id number] Bilirubin Ql (U) Negative Normal Comprehe nsive Internal Medicine; [facility] Work Phone: Comment on above: PATIENT WAS FASTINGP ERFORMED BY: CB [facility] Riugjm6304 [address]Dublin [place] [id number] Color (U) Yellow Normal [facility]; [facility] Work Phone: Comment on above: PATIENT WAS FASTINGP ERFORMED BY: CHRIS Labguerrero BatesHegffa6621 [address] RoadDublin [place] [id number] Glucose Ql (U) Negative Normal Comprehens domingo [facility]; [facility] Work Phone: Comment on above: PATIENT WAS FASTINGP ERFORMED BY: CHRIS Labguerrero BatesShezyv0446 [address] RoadDublin [place] [id number] Hemoglobin Ql (U) Negative Normal Compreh ensive [facility]; [facility] Work Phone: Comment on above: PATIENT WAS FASTINGP ERFORMED BY: CHRIS Labguerrero BatesQlslao2024 [address]Dublin [place] [id number] Ketones Ql (U) Negative Normal Comprehens domingo [facility]; [facility] Work Phone: Comment on above: PATIENT WAS FASTINGP ERFORMED BY: CHRIS Bateslin6370 [address] RoadDublin [place] [id number] Leukocyte esterase Test strip Ql (U) Trace Abnormal [facility]; [facility] Work Phone: Comment on above: PATIENT WAS FASTINGP ERFORMED BY: CHRIS Bateslin6370 [address]Dublin [place] [id number] Microscopic observation LM Nom (Urine sed) See below: Normal [facility]; [facility] Work Phone: Comment on above: Microscopic was doug cated and was performed. PATIENT WAS FASTINGP ERFORMED BY: CHRIS Labpatrp Xorqta5503 [address]Dublin [place] [id number] Nitrite Ql (U) Negative Normal Comprehens domingo [facility]; [facility] Work Phone: Comment on above: PATIENT WAS FASTINGP ERFORMED BY: CHRIS Labgu[facility]ro Dfsrek3443 [address] RoadDublin [place] [id number] pH (U) 5.5 [pH] Normal 5.0-7.5 [facility]; [facility] Work Phone: Comment on above: PATIENT WAS FASTINGP ERFORMED BY: CHRIS [facility] Gyvrzl8224 [address] RoadDublin [place] [id number] Protein Ql (U) 1+ Abnormal Comprehens domingo [facility]; [facility] Work Phone: Comment on above: PATIENT WAS FASTINGP ERFORMED BY: CHRIS [facility] Rykcot7260 Vera VailAtrium Health Mer[facility] [id number] Specific gravity (U) [Rel density] 1.023 1 Normal 1.005-1.03 0 [facility]; [facility] Work Phone: Comment on above: PATIENT WAS FASTINGP ERFORMED BY: CB [facility] Ingchu[address] [facility] [id number] Urobilinogen (U) [Mass/Vol] 0.2 mg/dL Normal 0.2-1.0 [facility]; [facility] Work Phone: Comment on above: PATIENT WAS FASTINGP ERFORMED BY: CHRIS [facility] Hgghth4851 [facility] [id number] CORONAVIRUS 2019 BY PCRon SARS-CoV-2 (COVID-19) RNA VIKTORIA+probe Ql (Unsp spec) Not detected Normal Not Detected [facility] Comment on above: Result Comment: . This assay is designed to detect the N, ORF1ab and/or S genes of SARS-CoV-2 via nucleic acid amplification. A Negative (NOT DETECTED) result does not preclude 2019-nCoV infection since the adequacy of sample collection and/or low viral burden may result in presence of viral nucleic acids below the clinical sensitivity of this test method. Negative (NOT DETECTED) result should not be used as the sole basis for treatment or other patient management decisions. Rather negative results should be combined with clinical observations, patient history, and epidemiological information to make patient management decisions. Fact sheet for providers: https://www.fda.gov/media/802204/download Fact sheet for patients: https://www.fda.gov/media/828063/download This test has received FDA Emergency Use Authorization (EUA) and has been verified by [facility] ([facility]). This test is only authorized for the duration of time that circumstances exist to justify the authorization of the emergency use of in vitro diagnostic tests for the detection of SARS-CoV-2 virus and/or diagnosis of COVID-19 infection under section 564(b)(1) of the Act, 21 U.S.C. 360bbb-3(b)(1), unless the authorization is terminated or revoked sooner. [facility] is certified under CLIA-88 as qualified to perform high complexity testing. Testing is performed in the [facility] laboratories located at [address] [place] [address]. Performed By: #### C OV19 #### [facility] [id number] REPLACED BY [facility] [place] [address] Covid 19 Resultson 1 SARS-CoV-2 (COVID-19) RNA VIKTORIA+probe Ql (Unsp spec) NEGATIVE COVID-19 Test Coronaviruses are common world-wide and are the cause of many common colds. SARS-COV2 is a new coronavirus that began circulating worldwide in 2019 so we are calling it COVID-19. It has been estimated that four out of five patients with COVID-19 will recover at home without the need for medical attention. Symptoms of COVID-19 may include cough, fever, shortness of breath, loss of taste or smell and other flu-like symptoms including chills, sore muscles, sore throat, and headache. Severe illness is more common in older people and people with other health problems such as high blood pressure, obesity, and immune system problems. If the test is positive, you have COVID-19. You will be contacted by the ordering physicians office and instructed to remain on home isolation, in accordance with CDC guidelines. You may also be contacted by the [facility] to see if any of your close contacts may have been exposed to the virus and need to quarantine. If the test is negative, you likely do not have COVID-19 at this time, but you still may have a different illness that can spread to other people (like Influenza, or the Flu) and could still be at risk for getting COVID-19. We recommend that you stay away from other people to limit the spread of illness until your symptoms are improving and you are fever-free for 24 hours without the use of fever lowering medications such as acetaminophen or ibuprofen. No test is 100% accurate so if you are still concerned you may have COVID-19, talk to your doctor about the need to continue to stay away from others. Medicines Unless your provider told you not to use the following: Acetaminophen (Tylenol and others) is generally safe. Anti-inflammatory medications, such as Ibuprofen (Advil or Motrin) or Naproxen (Aleve) can also be used. Toul-erp-cqcfzum cough and cold medicines can be used according to the instructions on the package. Some sjtb-mtf-dxdepcb medicines also contain acetaminophen. Make sure you are not taking more than your recommended dose. For those not hospitalized, there is no specific treatment available for this illness. Antibiotics do not treat Coronaviruses. Follow-Up Follow up with your doctor by scheduling a virtual visit or consider follow-up at one of our urgent care fever clinics. If you are having difficulty breathing, or are very weak and having difficulty standing, this is a medical emergency. Call 911 or have someone take you to the nearest emergency room immediately. If possible, wear a facemask. Additional guidance from the CDC for patients who tested POSITIVE for COVID-19 How to isolate: Isolate yourself in a specific room at home and limit your contact with others. Use a separate bathroom from other members of the household, when possible. Leave home only to get essential medical care. Do not go to work, school or public areas. Avoid using public transportation, ride-sharing, or taxis. Restrict contact with pets and other animals. If you must care for your pet or be around animals while you are sick, wash your hands before and after your interaction and wear a facemask. Make sure that shared spaces in the home have good airflow, such as by an air conditioner or an opened window, weather permitting. Personal Hygiene Procedures: Wear a face mask when in the same room as other people or pets. If a face mask interferes with your breathing, others should wear a mask when sharing space with you. Frequent hand-washing: wash your hands with soap and water for at least 20 seconds. If soap and water are not available, use alcohol-based hand security guards dispatcher. Avoid touching your eyes, nose, and mouth with unwashed hands. Household Hygiene Procedures: Avoid sharing personal household items such as dishes, glassware, cups, eating utensils, towels or bedding with other people or pets in your home. After use, these items should be washed with soap and hot water. Disinfect all high-touch surfaces every day with antibacterial cleaning solutions such as Lysol wipes, bleach, cleansers, etc. High-touch surfaces include tabletops, doorknobs, bathroom fixtures, toilets, phones, keyboards, tablets and bedside tables. Immediately clean any surfaces that may have blood, poop or body fluids on them, using antibacterial cleaning solutions such as Lysol wipes, bleach, cleansers, etc. If clothing or bedding come into contact with blood, poop or body fluids, they should be washed immediately. Follow the directions on the laundry detergent and clothing labels but hot water is recommended when possible. Stopping home isolation precautions: If possible, consult your doctor before stopping home isolation precautions. According to the CDC, you can discontinue home isolation precautions when you have met both of these criteria: Your fever and respiratory symptoms have been gone for 24 pj (more content not included)... [facility] CORONAVIRUS 2019 BY PCRon DATE OF SYMPTOM ONSET [YYYYMMDD]? Canceled [facility] Comment on above: Order Comment: TEST CORONAVIRUS 2019 BY PCR WAS CANCELLED, 04/12/2021 11:41 Performed By: #### C OV19 #### [facility] [address] [place] [address] SARS-CoV-2 (COVID-19) RNA VIKTORIA+probe Ql (Unsp spec) Canceled [facility] Comment on above: Order Comment: TEST CORONAVIRUS 2019 BY PCR WAS CANCELLED, 04/12/2021 11:41 Result Comment: . This assay is designed to detect the N, ORF1ab and/or S genes of SARS-CoV-2 via nucleic acid amplification. A Negative (NOT DETECTED) result does not preclude 2019-nCoV infection since the adequacy of sample collection and/or low viral burden may result in presence of viral nucleic acids below the clinical sensitivity of this test method. Negative (NOT DETECTED) result should not be used as the sole basis for treatment or other patient management decisions. Rather negative results should be combined with clinical observations, patient history, and epidemiological information to make patient management decisions. Fact sheet for providers: https://www.fda.gov/media/566592/download Fact sheet for patients: https://www.fda.gov/media/073857/download This test has received FDA Emergency Use Authorization (EUA) and has been verified by [facility] ([facility]). This test is only authorized for the duration of time that circumstances exist to justify the authorization of the emergency use of in vitro diagnostic tests for the detection of SARS-CoV-2 virus and/or diagnosis of COVID-19 infection under section 564(b)(1) of the Act, 21 U.S.C. 360bbb-3(b)(1), unless the authorization is terminated or revoked sooner. [facility] is certified under CLIA-88 as qualified to perform high complexity testing. Testing is performed in the [facility] laboratories located at [address] [place] [address]. Performed By: #### C OV19 #### [address] [place] [address] DATE OF SYMPTOM ONSET [YYYYMMDD]? [id number] [facility] Comment on above: Performed By: #### C OV19 #### [address] [place] [address] Lab Specimen Source Nasal, Nasopharyngeal Normal [facility] Comment on above: Performed By: #### C OV19 #### [address] [place] [address] Lab Specimen Source Nasal, Nasopharyngeal [facility] Comment on above: Order Comment: TEST CORONAVIRUS 2019 BY PCR WAS CANCELLED, 04/12/2021 11:41 Performed By: #### C OV19 #### [address] [place] [address] Provider Note - ED v3on 03-27 Provider Note - ED v3 Provider Note: Chart Review: ED NOTES ED NOTES: Nontoxic female presents urgent care chief complaint COVID-19 concerns. Duration of symptoms 24 hours. Associated symptoms cough, body aches, chills, headache and fatigue. Patient does work as an ICU nurse at [employer]. States she is exposed to COVID-19 daily. Patient is vaccinated against COVID-19. Denies history of COVID-19.. Patient denies any pleuritic pain, chest pain, shortness of breath, fevers, nausea, vomiting, abdominal pain, rashes, difficulty swallowing, headaches or change in bowel or bladder habit. Past medical history of prescription medication use and allergies reviewed HISTORY OF PRESENTING ILLNESS SANTA is a 65 year old Female and was seen by me at 12-Apr-2021 10:29. The historian is the patient. Triage Information: Most recent Vital Sign Value Date PAST MEDICAL HISTORY ALLERGIES/INTOLERANCES: Intolerance Allergen: sulfa drugs Type: Drug Category Reaction: GI Upset HEALTH HISTORY: No documented data. OUTPATIENT MEDICATIONS: Home Medications Review Status for Reconciliation: Complete Med Status: Patient Currently Takes Medications Drug Name: HYDROCHLOROTHIAZIDE 25MG TABLETS Instructions: 1 tab(s) orally once a day Drug Name: Metoprolol Tartrate 50 mg oral tablet Instructions: 1 tab(s) orally 2 times a day Drug Name: amLODIPine 10 mg oral tablet Instructions: 1 tab(s) orally once a day Drug Name: losartan 100 mg oral tablet Instructions: 1 tab(s) orally once a day Drug Name: Lidoderm 5% topical film Instructions: Apply topically to affected area once a day SIGNIFICANT EVENTS: Immunizations Description:SARS-CoV-2 (COVID-19) Description:SARS-CoV-2 (COVID-19) Past Medical History Description:Hypertension (HTN) Past Surgical History Description:d&c REVIEW OF SYSTEMS CONSTITUTIONAL: POSITIVE for: chills and malaise Negative for: anorexia, fever and weakness EYES: Negative for: itching, pain, photophobia and redness ENMTEars: Negative for: discharge, hearing loss and pain Nose: POSITIVE for: congestion Negative for: discharge Throat/Neck: Negative for: dysphagia, throat pain, neck pain, neck stiffness and swollen glands CARDIOVASCULAR: Negative for: chest pain, diaphoresis, palpitations and tachycardia RESPIRATORY: POSITIVE for: cough Negative for: dyspnea, hemoptysis, pleuritic chest pain and wheezing GASTROINTESTINAL: Negative for: abdominal pain, constipation, diarrhea, nausea and vomiting; change in bowel habits GENITOURINARY: Negative for: dysuria, hematuria and urgency; MUSCULOSKELETAL: Negative for: back pain, joint pain and neck pain INTEGUMENTARY: Negative for: itching; rash NEUROLOGICAL: Negative for: altered mental status, dizziness, gait abnormality, headache, loss of consciousness, loss of function and low extremity numbness; vertigo PHYSICAL EXAM CONSTITUTIONAL: Well appearing, well nourished, awake, alert, oriented to person, place, time/situation and in no apparent distress. HENMT: Airway patent, ears with clear tympanic membranes bilaterally. Nasal mucosa clear. Mouth with normal mucosa. Throat has no vesicles, no oropharyngeal exudates and uvula is midline. Face with no lymph node enlargement. EYES: Clear bilaterally, pupils equal, round and reactive to light. CARDIOVASCULAR: Normal rate, regular rhythm. Normal peripheral perfusion RESPIRATORY: Breath sounds clear and equal bilaterally. No respiratory distress or labored breathing noted. GASTROINTESTINAL: Abdomen soft, non-distended, no rebound, no guarding. NEUROLOGICAL: Alert and oriented, no focal deficits, no motor or sensory deficits. SKIN: Skin normal color for race, warm, dry and intact. No evidence of trauma. HEME/LYMPH: Negative cervical adenopathy. CRITICAL CARE VITAL SIGNS: T PRBP SpO2O2(LPM) %FiO2 Method 12-Apr-2021 10:31:[id number] 94 resp 18 96% bp 161/80 DISPOSITION Diagnosis/Annotation: ED Dx Name:Suspected COVID-19 virus infection Code:Z20.822 Disposition: discharged Type: home CONSULT Comments/Additional Findings: Patient diagnosis suspected COVID-19. Patient nontoxic on physical examination patient respirations equal unlabored. No apparent distress. Will contact PCP if elevated blood pressure persist. Covid test ordered. Results pending. Alternative diagnosis discussed. Home quarantine recommended. Supportive therapies discussed with patient. Will follow up with PCP as needed. Patient discharged in stable condition. For any new, worsening, or symptoms lasting longer than anticipated patient will proceed to ED for further evaluation. Patient verbalized understanding and agrees with plan of care. Patient to exit in stable condition. This note was dictated using Net[employer] software and may contain errors in wording spelling or punctuation. CRITICAL CARE TIME Is this a critically ill patient: n (more content not included)... Normal [facility] CALCIFEDIOL ([id number])Ordered B y: Bus Girl on 10-13-2019 25-Hydroxyvitamin D2+25-Hydroxyvitamin D3 [Mass/Vol] 43.0 ng/mL Normal 30.0-100.0 [facility] Work Phone: Comment on above: Vitamin D deficiency has been defined by the [place] [employer] and an Endocrine Society practice guideline as alevel of serum 25-OH vitamin D less than 20 ng/mL (1,2).The Endocrine Society went on to further define vitamin Dinsufficiency as a level between 21 and 29 ng/mL (2).1. IOM ([place] of [employer]). 2010. Dietary reference intakes for calcium and D. [place]: The National AcademSport [employer].2. Amara MF, Pat [place], Enrike MICHAELS, et al. Evaluation, treatment, and prevention of vitamin D deficiency: an Endocrine Society clinical practice guideline. JCEM. 2010; 96(7):1911-30. PATIENT WAS FASTINGP ERFORMED BY: CB [facility] Icfjdr5177 [address] RoadDublin [place] [id number] CBC WITH MANUAL DIFF ([id number]) Ordered By: Bus Girl on 10-13-2019 Basophils (Bld) [#/Vol] 0.0 {x10E3/uL} Normal 0.0-0.2 [facility] Work Phone: Comment on above: PATIENT WAS FASTINGP ERFORMED BY: [facility] Tuklva2217 [address]Dublin [place] [id number] Basophils (Bld) [#/Vol] 0.0 10*3/uL Normal 0.0-0.2 [facility]; [facility] Work Phone: Comment on above: PATIENT WAS FASTINGP ERFORMED BY: CB [facility] Enffbk4227 [address]Dublin [place] [id number] Basophils/100 WBC (Bld) 1 % Normal [facility] Work Phone: Comment on above: PATIENT WAS FASTINGP ERFORMED BY: CB [facility] Jbgljb2579 [address]Dublin [place] [id number] Eosinophils (Bld) [#/Vol] 0.2 {x10E3/uL} Normal 0.0-0.4 [facility] Work Phone: Comment on above: PATIENT WAS FASTINGP ERFORMED BY: CB [facility] Qcwzbr7102 [address]Dublin [place] [id number] Eosinophils (Bld) [#/Vol] 0.2 10*3/uL Normal 0.0-0.4 [facility]; [facility] Work Phone: Comment on above: PATIENT WAS FASTINGP ERFORMED BY: CHRIS Caceres U[address]wxoa[address] [facility] [id number] Eosinophils/100 WBC (Bld) 3 % Normal [facility] Work Phone: Comment on above: PATIENT WAS FASTINGP ERFORMED BY: [facility] Dngtub5526 [facility] [id number] Erythrocyte distribution width (RBC) [Ratio] 14.5 % Normal 11.7-15.4 [facility] Work Phone: Comment on above: PATIENT WAS FASTINGP ERFORMED BY: [facility] Pgfqyy9129 [facility] [id number] Hematocrit (Bld) [Volume fraction] 46.6 % Normal 34.0-46.6 [facility] Work Phone: Comment on above: PATIENT WAS FASTINGP ERFORMED BY: [facility] Zbeeyo5566 [facility] [id number] Hemoglobin (Bld) [Mass/Vol] 15.1 g/dL Normal 11.1-15.9 [facility] Work Phone: Comment on above: PATIENT WAS FASTINGP ERFORMED BY: [facility] Ojltyz[address] [facility] [id number] Immature granulocytes (Bld) [#/Vol] 0.0 {x10E3/uL} Normal 0.0-0.1 [facility] Work Phone: Comment on above: PATIENT WAS FASTINGP ERFORMED BY: [facility] [address]zps[address] [facility] [place] [id number] Immature granulocytes (Bld) [#/Vol] 0.0 10*3/uL Normal 0.0-0.1 [facility]; [facility] Work Phone: Comment on above: PATIENT WAS FASTINGP ERFORMED BY: [facility] [facility] [id number] Immature granulocytes/100 WBC (Bld) 0 % Normal [facility] Work Phone: Comment on above: PATIENT WAS FASTINGP ERFORMED BY: [facility] Lgumqh6609 [address]Dublin [place] [id number] Lymphocytes (Bld) [#/Vol] 1.8 {x10E3/uL} Normal 0.7-3.1 [facility] Work Phone: Comment on above: PATIENT WAS FASTINGP ERFORMED BY: LabCoPres[facility]-R[facility] RanchoDnshkq2472 [address] RoadDublin [place] [id number] Lymphocytes (Bld) [#/Vol] 1.8 10*3/uL Normal 0.7-3.1 [facility]; [facility] Work Phone: Comment on above: PATIENT WAS FASTINGP ERFORMED BY: [facility]6[address] [place] [id number] Lymphocytes/100 WBC (Bld) 29 % Normal [facility] Work Phone: Comment on above: PATIENT WAS FASTINGP ERFORMED BY: [facility]6[address] [place] [id number] MCH (RBC) [Entitic mass] 26.7 pg Normal 26.6-33.0 [facility] Work Phone: Comment on above: PATIENT WAS FASTINGP ERFORMED BY: [facility]6[address] [place] [id number] MCHC (RBC) [Mass/Vol] 32.4 g/dL Normal 31.5-35.7 [facility] prehensive Internal Medicine Work Phone: Comment on above: PATIENT WAS FASTINGP ERFORMED BY: [facility] Mhrlvq5481 [address]Dublin [place] [id number] MCV (RBC) [Entitic vol] 83 fL Normal 79-97 [facility] Work Phone: Comment on above: PATIENT WAS FASTINGP ERFORMED BY: [facility] Tccuft0618 [address]Dublin [place] [id number] Monocytes (Bld) [#/Vol] 0.6 {x10E3/uL} Normal 0.1-0.9 [facility] Work Phone: Comment on above: PATIENT WAS FASTINGP ERFORMED BY: CB [facility] Mnohwj6660 [address]Dublin [place] [id number] Monocytes (Bld) [#/Vol] 0.6 10*3/uL Normal 0.1-0.9 [facility]; [facility] Work Phone: Comment on above: PATIENT WAS FASTINGP ERFORMED BY: CB [facility] Npluor0478 [address] RoadDublin [place] [id number] Monocytes/100 WBC (Bld) 9 % Normal [facility] Work Phone: Comment on above: PATIENT WAS FASTINGP ERFORMED BY: CB [facility] Forboy3282 [address]Dublin [place] [id number] Neutrophils (Bld) [#/Vol] 3.6 {x10E3/uL} Normal 1.4-7.0 [facility] Work Phone: Comment on above: PATIENT WAS FASTINGP ERFORMED BY: CB [facility] Wocjzp3345 [address]Dublin [place] [id number] Neutrophils (Bld) [#/Vol] 3.6 10*3/uL Normal 1.4-7.0 [facility]; [facility] Work Phone: Comment on above: PATIENT WAS FASTINGP ERFORMED BY: [facility] Aedjgp4785 [address] RoadDublin [place] [id number] Neutrophils/100 WBC (Bld) 58 % Normal [facility] Work Phone: Comment on above: PATIENT WAS FASTINGP ERFORMED BY: CB [facility] Hmcpaj7794 [address]Dublin [place] [id number] Platelets (Bld) [#/Vol] 305 {x10E3/uL} Normal 150-450 [facility] Work Phone: Comment on above: PATIENT WAS FASTINGP ERFORMED BY: CB [facility] Iuzpxc0503 [address]Dublin [place] [id number] Platelets (Bld) [#/Vol] 305 10*3/uL Normal 150-450 [facility]; [facility] Work Phone: Comment on above: PATIENT WAS FASTINGP ERFORMED BY: CHRIS LabGuerrero BatesKtwsqa[address] [facility] [place] [id number] RBC (Bld) [#/Vol] 5.65 {x10E6/uL} Abnormal 3.77-5.28 [facility] Internal Medicine Work Phone: Comment on above: PATIENT WAS FASTINGP ERFORMED BY: CHRIS LabGuerrero BatesTlmqdh2841 [address] Roadblin [place] [id number] RBC (Bld) [#/Vol] 5.65 10*6/uL Abnormal 3.77-5.28 [facility]; [facility] Work Phone: Comment on above: PATIENT WAS FASTINGP ERFORMED BY: CHRIS Bateslin[address] [facility] [id number] WBC (Bld) [#/Vol] 6.2 {x10E3/uL} Normal 3.4-10.8 [facility] Internal Medicine Work Phone: Comment on above: PATIENT WAS FASTINGP ERFORMED BY: CHRIS LabGuerrero BatesHsevhr[address] [facility] [place] [id number] WBC (Bld) [#/Vol] 6.2 10*3/uL Normal 3.4-10.8 [facility]; [facility] Work Phone: Comment on above: PATIENT WAS FASTINGP ERFORMED BY: CHRIS LabGuerrero BatesUwmvmy[address] [facility]in [place] [id number] LIPID PANEL ([id number])Ordered B y: Bus Girl on 10-13-2019 Cholesterol [Mass/Vol] 166 mg/dL Normal 100-199 [facility] Work Phone: Comment on above: PATIENT WAS FASTINGP ERFORMED BY: CHRIS LabGuerrero Uksdet[address] [facility] [place] [id number] Cholesterol in HDL [Mass/Vol] 49 mg/dL Normal [facility] Work Phone: Comment on above: PATIENT WAS FASTINGP ERFORMED BY: CHRIS [facility] Bgmkqd[address] [facility] [place] [id number] Cholesterol in LDL [Mass/Vol] 101 mg/dL Abnormal 0-99 [facility] Work Phone: Comment on above: PATIENT WAS FASTINGP ERFORMED BY: CHRIS Alireza Sanchez[address] [facility]in [place] [id number] Cholesterol in LDL/Cholesterol in HDL [Mass ratio] 2.1 {ratio} Normal 0.0-3.2 [facility] Work Phone: Comment on above: LDL/HDL Ratio Men Wo men 1/2 Avg.Risk 1.0 1.5 Avg.Risk 3.6 3.2 2X Avg.Risk 6.2 5.0 3X Avg.Risk 8.0 6.1 PATIENT WAS FASTINGP ERFORMED BY: CHRIS Morristrudi Isryff2229 [facility] [id number] Cholesterol in VLDL [Mass/Vol] 16 mg/dL Normal 5-40 [facility] Work Phone: Comment on above: PATIENT WAS FASTINGP ERFORMED BY: CHRIS Morrisrtudi Wnejcn6610 [facility] [id number] Triglyceride [Mass/Vol] 78 mg/dL Normal 0-149 [facility] Work Phone: Comment on above: PATIENT WAS FASTINGP ERFORMED BY: CHRIS Bateslin6370 [facility] [id number] METABOLIC PANEL, BASIC (8004 8)Ordered By: Bus Girl on 10-13-2019 Calcium [Mass/Vol] 9.6 mg/dL Normal 8.7-10.3 [facility] Work Phone: Comment on above: PATIENT WAS FASTINGP ERFORMED BY: CHRIS LabCotrudi Vjdweh[address] [facility] [place] [id number]; fu 2-20 db Chloride [Moles/Vol] 103 mmol/L Normal 96-106 [facility] Work Phone: Comment on above: PATIENT WAS FASTINGP ERFORMED BY: CHRIS LabCo Hwbugk[address] [facility] [id number]; fu 2-20 db CO2 [Moles/Vol] 25 mmol/L Normal 20-29 [facility] Internal Medicine Work Phone: Comment on above: PATIENT WAS FASTINGP ERFORMED BY: CB [facility] Ntlqbx6084 [address] RoadDublin [place] [id number]; fu 2-20 db Creatinine [Mass/Vol] 0.45 mg/dL Abnormal 0.57-1.00 [facility] Work Phone: Comment on above: PATIENT WAS FASTINGP ERFORMED BY: CB [facility] Cttihq7110 [address] RoadDublin [place] [id number]; fu 2-20 db GFR/1.73 sq M predicted among blacks CKD-EPI (S/P/Bld) [Vol rate/Area] 124 mL/min/1.73 Normal [facility] Work Phone: Comment on above: PATIENT WAS FASTINGP ERFORMED BY: CB [facility] Htznld9564 [address] RoadDublin [place] [id number]; fu 2-20 db GFR/1.73 sq M predicted among non-blacks CKD-EPI (S/P/Bld) [Vol rate/Area] 108 mL/min/1.73 Normal [facility] Internal Medicine Work Phone: Comment on above: PATIENT WAS FASTINGP ERFORMED BY: CB [facility] Gdtgav1037 [address] RoadDuin [place] [id number]; fu 2-20 db Glucose [Mass/Vol] 92 mg/dL Normal 65-99 [facility] Internal [facility] Work Phone: Comment on above: PATIENT WAS FASTINGP ERFORMED BY: CB [facility] Grbvvs3768 [address] RoadDublin [place] [id number]; fu 2-20 db Potassium [Moles/Vol] 3.8 mmol/L Normal 3.5-5.2 [facility] Internal [facility] Work Phone: Comment on above: PATIENT WAS FASTINGP ERFORMED BY: CB [facility] Kgieww5790 [address] RoadDublin [place] [id number]; fu 2-20 db Sodium [Moles/Vol] 144 mmol/L Normal 134-144 [facility] Internal [facility] Work Phone: Comment on above: PATIENT WAS FASTINGP ERFORMED BY: CHRIS LabCotrudi BatesHxynol[address] LvmaeDublin [place] [id number]; fu 2-20 db Urea nitrogen [Mass/Vol] 14 mg/dL Normal 8-27 [facility] Work Phone: Comment on above: PATIENT WAS FASTINGP ERFORMED BY: CHRIS [facility] Wmwitp9678 [address] RoadDublin [place] [id number]; fu 2-20 db Urea nitrogen/Creatinine [Mass ratio] 31 mg/mg Abnormal 12-28 [facility] Work Phone: Comment on above: PATIENT WAS FASTINGP ERFORMED BY: CHRIS LabCotrudi Uxdgtq5478 [address] RoadDublin [place] [id number]; fu 2-20 db MICROALBUMINOrdered By: Syst em Manager State on 10-13-2019 Albumin DL <= 20 mg/L (U) [Mass/Vol] 47.4 ug/mL Normal [facility] Work Phone: Comment on above: PATIENT WAS FASTINGP ERFORMED BY: CHRIS LabCotrudi BatesLipzgn7128 Gamez RoadDublin [place] [id number] Albumin/Creatinine (U) [Mass ratio] 90 {mg/g_creat} Abnormal 0-29 [facility] Work Phone: Comment on above: Normal: 0 - 29 Moder ately increased: 30 - 300 Severely increased: >300 Please note reference interval change PATIENT WAS FASTINGP ERFORMED BY: CHRIS [facility] Uwgrht[address] Lvmaebl[place] [id number] Creatinine (U) [Mass/Vol] 52.4 mg/dL Normal [facility] Work Phone: Comment on above: PATIENT WAS FASTINGP ERFORMED BY: CHRIS [facility] Kvhtfv[address] [facility] HospitalDublin [place] [id number] URINALYSIS ([id number])Ordered By : Bus Girl on 10-13-2019 Appearance (U) Clear Normal Comprehens [facility] Work Phone: Comment on above: PATIENT WAS FASTINGP ERFORMED BY: CHRIS Bateslin6[address] RoadDublin [place] [id number] Bilirubin Ql (U) Negative Normal Comprehe nsive Internal Medicine Work Phone: Comment on above: PATIENT WAS FASTINGP ERFORMED BY: CHRIS LabGuerrero BatesLdfvuz0160 [address]z RoadDublin [place] [id number] Bilirubin Ql (U) Negative Normal Comprehe nsive Internal Medicine; [facility] Work Phone: Comment on above: PATIENT WAS FASTINGP ERFORMED BY: CHRIS Bateslin6[address] RoadDublin [place] [id number] Color (U) Yellow Normal [facility] Work Phone: Comment on above: PATIENT WAS FASTINGP ERFORMED BY: CHRIS Bateslin6[address] RoadDublin [place] [id number] Glucose Ql (U) Negative Normal Comprehens [facility] Work Phone: Comment on above: PATIENT WAS FASTINGP ERFORMED BY: CHRIS Bateslin6[address]Dublin [place] [id number] Glucose Ql (U) Negative Normal Comprehens [facility]; [facility] Work Phone: Comment on above: PATIENT WAS FASTINGP ERFORMED BY: CHRIS Bateslin6[address]Dublin [place] [id number] Hemoglobin Ql (U) Negative Normal Compreh ensive Internal Medicine Work Phone: Comment on above: PATIENT WAS FASTINGP ERFORMED BY: CHRIS LabGuerrero BatesMxkrgs7942 [address] RoadDublin [place] [id number] Hemoglobin Ql (U) Negative Normal Compreh ensive Internal Medicine; [facility] Work Phone: Comment on above: PATIENT WAS FASTINGP ERFORMED BY: CHRIS LabGuerrero BatesRbbjth7750 [address] RoadDublin [place] [id number] Ketones Ql (U) Trace Abnormal Comprehens [facility] Work Phone: Comment on above: PATIENT WAS FASTINGP ERFORMED BY: CHRIS [facility] Hxiklc3051 [address] RoadDublin [place] [id number] Leukocyte esterase Test strip Ql (U) Negative Normal [facility] Work Phone: Comment on above: PATIENT WAS FASTINGP ERFORMED BY: CHRIS Alireza Sanchez[address] [facility] [id number] Leukocyte esterase Test strip Ql (U) Negative Normal [facility]; [facility] Work Phone: Comment on above: PATIENT WAS FASTINGP ERFORMED BY: CHRIS Bateslin[address] [facility] [id number] Microscopic observation LM Nom (Urine sed) MICNIP Normal [facility] Work Phone: Comment on above: Microscopic not doug cated and not performed. PATIENT WAS FASTINGP ERFORMED BY: CHRIS Morristrudi Vpzynm7085 [facility] [id number] Nitrite Ql (U) Negative Normal Comprehens [facility] Work Phone: Comment on above: PATIENT WAS FASTINGP ERFORMED BY: CHRIS Bateslin6370 [facility] [id number] Nitrite Ql (U) Negative Normal Comprehens [facility]; [facility] Work Phone: Comment on above: PATIENT WAS FASTINGP ERFORMED BY: CHRIS ToritoGuerrero BatesCzcnoz7199 [facility] [id number] pH (U) 5.5 [pH] Normal 5.0-7.5 [facility] Work Phone: Comment on above: PATIENT WAS FASTINGP ERFORMED BY: CHRIS ToritoGuerrero BatesRqqgmp46[address] [facility] [id number] Protein Ql (U) Negative Normal Comprehens [facility] Work Phone: Comment on above: PATIENT WAS FASTINGP ERFORMED BY: CHRIS ToritoGuerrero BatesSkzcgg[address] [facility] [id number] Protein Ql (U) Negative Normal Comprehens [facility]; [facility] Work Phone: Comment on above: PATIENT WAS FASTINGP ERFORMED BY: CHRIS Bateslin6370 [facility] [id number] Specific gravity (U) [Rel density] 1.018 1 Normal 1.005-1.03 0 [facility] Internal Medicine Work Phone: Comment on above: PATIENT WAS FASTINGP ERFORMED BY: [facility]6370 [facility] [id number] Urobilinogen (U) [Mass/Vol] 0.2 mg/dL Normal 0.2-1.0 [facility] Internal Medicine; [facility] Medicine Work Phone: Comment on above: PATIENT WAS FASTINGP ERFORMED BY: [facility]6370 [facility] [id number] Urobilinogen Test strip (U) [Mass/Vol] 0.2 mg/dL Normal 0.2-1.0 [facility] Internal [facility] Work Phone: Comment on above: PATIENT WAS FASTINGP ERFORMED BY: [facility]6370 [facility] [id number] HEPATITIS C ANTIBODY ([id number]) Ordered By: Bus Girl on 04-14-2019 HCV Ab Signal/Cutoff IA [Rel units/Vol] {ratio} Normal 0.0-0.9 [facility] Internal Medicine Work Phone: Comment on above: Negative: < 0.8 Inde terminate: 0.8 - 0.9 Positive: > 0.9 . The CDC recommends that a positive HCV antibody result be followed up with a HCV Nucleic Acid Amplification test (176805). PATIENT NOT FASTINGP ERFORMED BY: [facility]6370 [facility] [id number] HCV Ab Signal/Cutoff IA [Rel units/Vol] {ratio} Normal 0.0-0.9 [facility] Internal Medicine; [facility] Internal Medicine Work Phone: Comment on above: Negative: < 0.8 Inde terminate: 0.8 - 0.9 Positive: > 0.9 . The CDC recommends that a positive HCV antibody result be followed up with a HCV Nucleic Acid Amplification test (872731). PATIENT NOT FASTINGP ERFORMED BY: [facility]6370 [facility] [id number] CBC WITH MANUAL DIFF (07915) Ordered By: Bus Girl on 03-25-2019 Basophils (Bld) [#/Vol] 0.0 {x10E3/uL} Normal 0.0-0.2 [facility] Work Phone: Comment on above: PATIENT WAS FASTINGP ERFORMED BY: [place] 6196070 [facility] [id number] Basophils (Bld) [#/Vol] 0.0 10*3/uL Normal 0.0-0.2 [facility]; [facility] Work Phone: Comment on above: PATIENT WAS FASTINGP ERFORMED BY: [place] 6196070 [facility] [id number] Basophils/100 WBC (Bld) 0 % Normal [facility] Work Phone: Comment on above: PATIENT WAS FASTINGP ERFORMED BY: [address] [id number] Eosinophils (Bld) [#/Vol] 0.2 {x10E3/uL} Normal 0.0-0.4 [facility] Work Phone: Comment on above: PATIENT WAS FASTINGP ERFORMED BY: [facility]6370 [facility] [id number] Eosinophils (Bld) [#/Vol] 0.2 10*3/uL Normal 0.0-0.4 [facility]; [facility] Work Phone: Comment on above: PATIENT WAS FASTINGP ERFORMED BY: [place] 6196070 [facility] [id number] Eosinophils/100 WBC (Bld) 2 % Normal [facility] Work Phone: Comment on above: PATIENT WAS FASTINGP ERFORMED BY: [place] 6196070 [facility] [id number] Erythrocyte distribution width (RBC) [Ratio] 14.2 % Normal 12.3-15.4 [facility] Work Phone: Comment on above: PATIENT WAS FASTINGP ERFORMED BY: [facility] [facility]in [place] [id number] Hematocrit (Bld) [Volume fraction] 44.5 % Normal 34.0-46.6 [facility] Work Phone: Comment on above: PATIENT WAS FASTINGP ERFORMED BY: [facility] [facility] [id number] Hemoglobin (Bld) [Mass/Vol] 15.3 g/dL Normal 11.1-15.9 [facility] Work Phone: Comment on above: PATIENT WAS FASTINGP ERFORMED BY: LabFrank Ville 5754370 [address] RoadC[facility] [id number] Immature granulocytes (Bld) [#/Vol] 0.0 {x10E3/uL} Normal 0.0-0.1 [facility] Work Phone: Comment on above: PATIENT WAS FASTINGP ERFORMED BY: [place] [address] [facility] [id number] Immature granulocytes (Bld) [#/Vol] 0.0 10*3/uL Normal 0.0-0.1 [facility]; [facility] Work Phone: Comment on above: PATIENT WAS FASTINGP ERFORMED BY: [facility] [facility]in [place] [id number] Immature granulocytes/100 WBC (Bld) 0 % Normal [facility] Work Phone: Comment on above: PATIENT WAS FASTINGP ERFORMED BY: [facility] [facility]in [place] [id number] Lymphocytes (Bld) [#/Vol] 2.4 {x10E3/uL} Normal 0.7-3.1 [facility] Work Phone: Comment on above: PATIENT WAS FASTINGP ERFORMED BY: [facility] [place] [id number] Lymphocytes (Bld) [#/Vol] 2.4 10*3/uL Normal 0.7-3.1 [facility]; [facility] Work Phone: Comment on above: PATIENT WAS FASTINGP ERFORMED BY: CHRIS [facility] Naenzh[address] [facility] [place] [id number] Lymphocytes/100 WBC (Bld) 24 % Normal [facility] Work Phone: Comment on above: PATIENT WAS FASTINGP ERFORMED BY: [facility] Sulcmd[address] [facility] [id number] MCH (RBC) [Entitic mass] 28.0 pg Normal 26.6-33.0 [facility] Work Phone: Comment on above: PATIENT WAS FASTINGP ERFORMED BY: [facility] Oqmlpm[address] [facility]in [place] [id number] MCHC (RBC) [Mass/Vol] 34.4 g/dL Normal 31.5-35.7 [facility] Internal Medicine Work Phone: Comment on above: PATIENT WAS FASTINGP ERFORMED BY: CHRIS [facility] Pjwkyr[address] [facility] [id number] MCV (RBC) [Entitic vol] 82 fL Normal 79-97 [facility] Work Phone: Comment on above: PATIENT WAS FASTINGP ERFORMED BY: [facility] Xecmbd[address] [facility] [id number] Monocytes (Bld) [#/Vol] 1.0 {x10E3/uL} Abnormal 0.1-0.9 [facility] Work Phone: Comment on above: PATIENT WAS FASTINGP ERFORMED BY: [facility] Yvltca[address] [facility]in [place] [id number] Monocytes (Bld) [#/Vol] 1.0 10*3/uL Abnormal 0.1-0.9 [facility]; [facility] Work Phone: Comment on above: PATIENT WAS FASTINGP ERFORMED BY: [facility] Spfwyq[address] [facility]blin [place] [id number] Monocytes/100 WBC (Bld) 10 % Normal [facility] Work Phone: Comment on above: PATIENT WAS FASTINGP ERFORMED BY: CHRIS [facility] Cvjlka3524 [address] RoadDublin [place] [id number] Neutrophils (Bld) [#/Vol] 6.4 {x10E3/uL} Normal 1.4-7.0 [facility] Work Phone: Comment on above: PATIENT WAS FASTINGP ERFORMED BY: CHRIS [facility] Glcpqm6666 [address] RoadDublin [place] [id number] Neutrophils (Bld) [#/Vol] 6.4 10*3/uL Normal 1.4-7.0 [facility]; [facility] Work Phone: Comment on above: PATIENT WAS FASTINGP ERFORMED BY: CHRIS [facility] Ucmyur4279 [address] RoadDublin [place] [id number] Neutrophils/100 WBC (Bld) 64 % Normal [facility] Work Phone: Comment on above: PATIENT WAS FASTINGP ERFORMED BY: CHRIS [facility] Osrnam0398 [address] RoadDublin [place] [id number] Platelets (Bld) [#/Vol] 340 {x10E3/uL} Normal 150-450 [facility] Work Phone: Comment on above: PATIENT WAS FASTINGP ERFORMED BY: CHRIS [facility] Orpypa6400 [address] RoadDublin [place] [id number] Platelets (Bld) [#/Vol] 340 10*3/uL Normal 150-450 [facility]; [facility] Work Phone: Comment on above: PATIENT WAS FASTINGP ERFORMED BY: CB [facility] Elggvk4252 [address] RoadDublin [place] [id number] RBC (Bld) [#/Vol] 5.46 {x10E6/uL} Abnormal 3.77-5.28 [facility] Internal Medicine Work Phone: Comment on above: PATIENT WAS FASTINGP ERFORMED BY: CHRIS [facility] Ecnrpb7059 [address] RoadDublin [place] [id number] RBC (Bld) [#/Vol] 5.46 10*6/uL Abnormal 3.77-5.28 [facility]; [facility] Work Phone: Comment on above: PATIENT WAS FASTINGP ERFORMED BY: CHRIS LabCotrudi Gqqkpg2376 Gamez RoadDublin [place] [id number] WBC (Bld) [#/Vol] 10.1 {x10E3/uL} Normal 3.4-10.8 [facility] Internal Medicine Work Phone: Comment on above: PATIENT WAS FASTINGP ERFORMED BY: CHRIS [facility] Vsagjr4073 [address] Roadblin [place] [id number] WBC (Bld) [#/Vol] 10.1 10*3/uL Normal 3.4-10.8 [facility]; [facility] Work Phone: Comment on above: PATIENT WAS FASTINGP ERFORMED BY: CHRIS [facility] Nmzmoc[address] [facility]bl[facility] [place] [id number] MICROALBUMINOrdered By: Syst em Manager State on 03-25-2019 Albumin DL <= 20 mg/L (U) [Mass/Vol] 38.5 ug/mL Normal [facility] Work Phone: Comment on above: PATIENT WAS FASTINGP ERFORMED BY: CHRIS [facility] Yjikqw[address] [facility]in [place] [id number] Albumin/Creatinine (U) [Mass ratio] 39.5 {mg/g_creat} Abnormal 0.0-30.0 [facility] Work Phone: Comment on above: Normal: 0.0 - 30.0 A lbuminuria: 31.0 - 300.0 Clinical albuminuria: >300.0 PATIENT WAS FASTINGP ERFORMED BY: CHRIS [facility] Jajszw[address] [facility]bl[facility] [place] [id number] Creatinine (U) [Mass/Vol] 97.5 mg/dL Normal [facility] Work Phone: Comment on above: PATIENT WAS FASTINGP ERFORMED BY: CHRIS [facility] Wtdbgc9893 [address] RoadDublin [place] [id number] Metabolic Panel, Comprehensi ve (95264)Ordered By: Bus Girl on 03-25-2019 Albumin [Mass/Vol] 4.4 g/dL Normal 3.6-4.8 [facility] Internal Medicine Work Phone: Comment on above: PATIENT WAS FASTINGP ERFORMED BY: CB [facility] Bpccve2096 [address] RoadDublin [place] [id number] Albumin/Globulin [Mass ratio] 1.4 {ratio} Normal 1.2-2.2 [facility] Work Phone: Comment on above: PATIENT WAS FASTINGP ERFORMED BY: CB [facility] Gmgwgr6724 [address] RoadDublin [place] [id number] ALP [Catalytic activity/Vol] 74 [iU]/L Normal 39-117 [facility] Work Phone: Comment on above: PATIENT WAS FASTINGP ERFORMED BY: CB [facility] Ohhuvr1190 [address] RoadDublin [place] [id number] ALP [Catalytic activity/Vol] 74 U/L Normal 39-117 [facility]; [facility] Work Phone: Comment on above: PATIENT WAS FASTINGP ERFORMED BY: CB [facility] Lcpmwt2681 [address] RoadDublin [place] [id number] ALT [Catalytic activity/Vol] 22 [iU]/L Normal 0-32 [facility] Work Phone: Comment on above: PATIENT WAS FASTINGP ERFORMED BY: CB [facility] Gwhiru6591 [address] RoadDublin [place] [id number] ALT [Catalytic activity/Vol] 22 U/L Normal 0-32 [facility]; [facility] Work Phone: Comment on above: PATIENT WAS FASTINGP ERFORMED BY: CB [facility] Mvcxbz1295 [address] RoadDublin [place] [id number] AST [Catalytic activity/Vol] 14 [iU]/L Normal 0-40 [facility] Work Phone: Comment on above: PATIENT WAS FASTINGP ERFORMED BY: CB [facility] Pjhghz7851 [address] RoadDublin [place] [id number] AST [Catalytic activity/Vol] 14 U/L Normal 0-40 [facility]; [facility] Work Phone: Comment on above: PATIENT WAS FASTINGP ERFORMED BY: CB [facility] Dahica5072 [address] RoadDublin [place] [id number] Bilirubin [Mass/Vol] 0.5 mg/dL Normal 0.0-1.2 [facility] Work Phone: Comment on above: PATIENT WAS FASTINGP ERFORMED BY: CB [facility] Vcpyfo4305 [address] RoadDublin [place] [id number] Calcium [Mass/Vol] 10.0 mg/dL Normal 8.7-10.3 [facility] Internal Medicine Work Phone: Comment on above: PATIENT WAS FASTINGP ERFORMED BY: CB [facility] Joyfew9968 [address] RoadDublin [place] [id number] Chloride [Moles/Vol] 103 mmol/L Normal 96-106 [facility] Work Phone: Comment on above: PATIENT WAS FASTINGP ERFORMED BY: CB [facility] Acvmjf0760 [address] RoadDublin [place] [id number] CO2 [Moles/Vol] 22 mmol/L Normal 20-29 [facility] Internal Medicine Work Phone: Comment on above: PATIENT WAS FASTINGP ERFORMED BY: CB [facility] Drifvm8763 [address] RoadDublin [place] [id number] Creatinine [Mass/Vol] 0.60 mg/dL Normal 0.57-1.00 [facility] Internal Medicine Work Phone: Comment on above: PATIENT WAS FASTINGP ERFORMED BY: CB [facility] Tgciqa0484 [address] RoadDublin [place] [id number] GFR/1.73 sq M predicted among blacks CKD-EPI (S/P/Bld) [Vol rate/Area] 113 mL/min/1.73 Normal [facility] Work Phone: Comment on above: PATIENT WAS FASTINGP ERFORMED BY: CB [facility] Bgklcw5849 [address] RoadDublin [place] [id number] GFR/1.73 sq M predicted among non-blacks CKD-EPI (S/P/Bld) [Vol rate/Area] 98 mL/min/1.73 Normal [facility] Internal Medicine Work Phone: Comment on above: PATIENT WAS FASTINGP ERFORMED BY: CHRIS [facility] Uuejju9784 [address] RoadDublin [place] [id number] Globulin (S) [Mass/Vol] 3.2 g/dL Normal 1.5-4.5 [facility] Internal Medicine Work Phone: Comment on above: PATIENT WAS FASTINGP ERFORMED BY: CB [facility] Rusvxl8612 [address] RoadDublin [place] [id number] Glucose [Mass/Vol] 88 mg/dL Normal 65-99 [facility] Internal Medicine Work Phone: Comment on above: PATIENT WAS FASTINGP ERFORMED BY: CHRIS [facility] Zljhsu8245 [address] RoadDublin [place] [id number] Potassium [Moles/Vol] 3.9 mmol/L Normal 3.5-5.2 [facility] Internal Medicine Work Phone: Comment on above: PATIENT WAS FASTINGP ERFORMED BY: CHRIS [facility] Ybayud8473 [address] RoadDublin [place] [id number] Protein [Mass/Vol] 7.6 g/dL Normal 6.0-8.5 [facility] Internal Medicine Work Phone: Comment on above: PATIENT WAS FASTINGP ERFORMED BY: [facility] Ijauwf5600 [address] RoadDublin [place] [id number] Sodium [Moles/Vol] 142 mmol/L Normal 134-144 [facility] Internal Medicine Work Phone: Comment on above: PATIENT WAS FASTINGP ERFORMED BY: CHRIS [facility] Mluehy7169 [address] RoadDublin [place] [id number] Urea nitrogen [Mass/Vol] 21 mg/dL Normal 8-27 [facility] Internal Medicine Work Phone: Comment on above: PATIENT WAS FASTINGP ERFORMED BY: CHRIS [facility] Vdttwg9748 [address] RoadDublin [place] [id number] Urea nitrogen/Creatinine [Mass ratio] 35 mg/mg Abnormal 12-28 [facility] Internal Medicine Work Phone: Comment on above: PATIENT WAS FASTINGP ERFORMED BY: CHRIS [facility] Jsswgp1458 [address] RoadDublin [place] [id number] URINALYSIS ([id number])Ordered By : Bus Girl on 03-25-2019 Appearance (U) Clear Normal Comprehens domingo Internal Medicine Work Phone: Comment on above: PATIENT WAS FASTINGP ERFORMED BY: CHRIS [facility] Kzmfsn4697 [address] RoadDublin [place] [id number] Bilirubin Ql (U) Negative Normal Comprehe nsive Internal Medicine Work Phone: Comment on above: PATIENT WAS FASTINGP ERFORMED BY: CHRIS [facility] Kmlkxf4401 [address] RoadDublin [place] [id number] Bilirubin Ql (U) Negative Normal Comprehe nsive Internal Medicine; [facility] Work Phone: Comment on above: PATIENT WAS FASTINGP ERFORMED BY: CHRIS [facility] Sulopv5263 [address] RoadDublin [place] [id number] Color (U) Yellow Normal [facility] Work Phone: Comment on above: PATIENT WAS FASTINGP ERFORMED BY: CHRIS [facility] Qamznx5890 [address] RoadDublin [place] [id number] Glucose Ql (U) Negative Normal Comprehens domingo Internal Medicine Work Phone: Comment on above: PATIENT WAS FASTINGP ERFORMED BY: CHRIS [facility] Eonoqj6235 [address] RoadDublin [place] [id number] Glucose Ql (U) Negative Normal Comprehens domingo [facility] Medicine; [facility] Work Phone: Comment on above: PATIENT WAS FASTINGP ERFORMED BY: CHRIS [facility] Etodmc4010 [address] RoadDublin [place] [id number] Hemoglobin Ql (U) Negative Normal Compreh ensive Internal Medicine Work Phone: Comment on above: PATIENT WAS FASTINGP ERFORMED BY: CHRIS [facility] Wlqwol1028 [address] RoadDublin [place] [id number] Hemoglobin Ql (U) Negative Normal Compreh ensive Internal Medicine; [facility] Work Phone: Comment on above: PATIENT WAS FASTINGP ERFORMED BY: CHRIS [facility] Jcxkuj0091 [address] RoadDublin [place] [id number] Ketones Ql (U) Negative Normal Comprehens domingo Internal Medicine Work Phone: Comment on above: PATIENT WAS FASTINGP ERFORMED BY: CHRIS [facility] Hqukqa7092 [address] RoadDublin [place] [id number] Ketones Ql (U) Negative Normal Comprehens domingo [facility] Medicine; [facility] Work Phone: Comment on above: PATIENT WAS FASTINGP ERFORMED BY: CHRIS [facility] Fjrvtg0727 [address] RoadDublin [place] [id number] Leukocyte esterase Test strip Ql (U) 1+ Abnormal [facility] Work Phone: Comment on above: PATIENT WAS FASTINGP ERFORMED BY: CHRIS [facility] Bymjhk7259 [address] RoadDublin [place] [id number] Microscopic observation LM Nom (Urine sed) See below: Normal [facility] Work Phone: Comment on above: Microscopic was doug cated and was performed. PATIENT WAS FASTINGP ERFORMED BY: CHRIS [facility] Gkwryq5642 [address] RoadDublin [place] [id number] Nitrite Ql (U) Negative Normal Comprehens domingo Internal Medicine Work Phone: Comment on above: PATIENT WAS FASTINGP ERFORMED BY: CHRIS [facility] Yskmhm8482 [address] RoadDublin [place] [id number] Nitrite Ql (U) Negative Normal Comprehens domingo [facility] Medicine; [facility] Work Phone: Comment on above: PATIENT WAS FASTINGP ERFORMED BY: CHRIS [facility] Nlhkmw1830 [address] RoadDublin [place] [id number] pH (U) 5.5 [pH] Normal 5.0-7.5 [facility] Work Phone: Comment on above: PATIENT WAS FASTINGP ERFORMED BY: CHRIS [facility] Bdcokq9324 [address] RoadDublin [place] [id number] Protein Ql (U) Negative Normal Comprehens domingo Internal Medicine Work Phone: Comment on above: PATIENT WAS FASTINGP ERFORMED BY: CHRIS [facility] Ysxksb9786 [address] RoadDublin [place] [id number] Protein Ql (U) Negative Normal Comprehens domingo [facility] Medicine; [facility] Work Phone: Comment on above: PATIENT WAS FASTINGP ERFORMED BY: CHRIS [facility] Bwrwza5721 [address] Roadblin [place] [id number] Specific gravity (U) [Rel density] 1.022 1 Normal 1.005-1.03 0 [facility] Work Phone: Comment on above: PATIENT WAS FASTINGP ERFORMED BY: CHRIS [facility] Ysfoao8075 [address] RoadDublin [place] [id number] Urobilinogen (U) [Mass/Vol] 0.2 mg/dL Normal 0.2-1.0 [facility]; [facility] Work Phone: Comment on above: PATIENT WAS FASTINGP ERFORMED BY: [facility] Gxhmnl9141 [address] RoadDublin [place] [id number] Urobilinogen Test strip (U) [Mass/Vol] 0.2 mg/dL Normal 0.2-1.0 Comprehensi ve Internal Medicine Work Phone: Comment on above: PATIENT WAS FASTINGP ERFORMED BY: CHRIS [facility] Alkrdi0402 [address] Roadblin [place] [id number] Metabolic Panel, Basic (8004 8)Ordered By: Bus Girl on 09-03-2018 Calcium mass conc 10.0 mg/dL Normal 8.7-10.3 Compreh ensive Internal Medicine Work Phone: Comment on above: PATIENT NOT FASTINGP ERFORMED BY: CB [facility] Ptjqkp1709 [address] RoadDublin [place] [id number] Chloride molar conc 99 mmol/L Normal 96-106 Compr ehensive Internal Medicine Work Phone: Comment on above: PATIENT NOT FASTINGP ERFORMED BY: CHRIS [facility] Pdkfkx2878 Gamez RoadDublin [place] [id number] CO2 molar conc 25 mmol/L Normal 20-29 Comprehens domingo Internal Medicine Work Phone: Comment on above: PATIENT NOT FASTINGP ERFORMED BY: CB [facility] Srwxaj2799 Gamez RoadDublin [place] [id number] Creatinine mass conc 0.44 mg/dL Abnormal 0.57-1.00 Comp rehensive Internal Medicine Work Phone: Comment on above: PATIENT NOT FASTINGP ERFORMED BY: CB [facility] Rljqaj0739 Gamez RoadDublin [place] [id number] GFR/1.73 sq M predicted among blacks CKD-EPI vol rate/area (S/P/Bld) 126 mL/min/1.73 Normal Comprehensiv e Internal Medicine Work Phone: Comment on above: PATIENT NOT FASTINGP ERFORMED BY: CB [facility] Deyhns4591 Gamez RoadCatawba Valley Medical Centerin [place] [id number] GFR/1.73 sq M predicted among non-blacks CKD-EPI vol rate/area (S/P/Bld) 109 mL/min/1.73 Normal [facility] Work Phone: Comment on above: PATIENT NOT FASTINGP ERFORMED BY: CHRIS [facility] Amrlyr[address] [facility] [place] [id number] Glucose mass conc 86 mg/dL Normal 65-99 Compreh ensive Internal Medicine Work Phone: Comment on above: PATIENT NOT FASTINGP ERFORMED BY: CB [facility] Advogz4[address] [facility] [id number] Potassium molar conc 4.3 mmol/L Normal 3.5-5.2 Comp rehensive Internal Medicine Work Phone: Comment on above: PATIENT NOT FASTINGP ERFORMED BY: CB [facility] Blewuy[address] [facility] [place] [id number] Sodium molar conc 140 mmol/L Normal 134-144 Compreh ensive Internal Medicine Work Phone: Comment on above: PATIENT NOT FASTINGP ERFORMED BY: CB [facility] Wflwtn7266 [address] [facility] [place] [id number] Urea nitrogen mass conc 13 mg/dL Normal 8-27 [facility] Work Phone: Comment on above: PATIENT NOT FASTINGP ERFORMED BY: CHRIS LabCotrudi Nxmyrf5376 [address] [facility] [place] [id number] Urea nitrogen/Creatinine mass ratio 30 mg/mg Abnormal 12- [facility] Work Phone: Comment on above: PATIENT NOT FASTINGP ERFORMED BY: CHRIS LabCotrudi BatesEkdunc0928 [address] [facility] [place] [id number] CALCIUM, IONIZED ([id number])Orde red By: Bus Girl on 08-30-2017 Calcium.ionized Ion-selective membrane electrode (ISE) mass conc 5.6 mg/dL Normal 4.5-5.6 [facility] Work Phone: Comment on above: PATIENT WAS FASTINGP ERFORMED BY: CHRIS Bateslin6370 [facility] [id number] Metabolic Panel, Comprehensi ve ([id number])Ordered By: Bus Girl on 08-30-2017 Albumin mass conc 4.4 g/dL Normal 3.6-4.8 Compreh ensive Internal Medicine Work Phone: Comment on above: PATIENT WAS FASTINGP ERFORMED BY: CHRIS [facility] Ketlva3276 [facility] [id number] Information: NURSE DRAW Albumin/Globulin mass ratio 1.4 {ratio} Normal 1.2-2.2 [facility] Work Phone: Comment on above: PATIENT WAS FASTINGP ERFORMED BY: CHRIS LabPat Emzcrn1844 [facility] [id number] Information: NURSE DRAW ALP [Catalytic activity/Vol] 81 U/L Normal 39-117 [facility]; [facility] Work Phone: Comment on above: PATIENT WAS FASTINGP ERFORMED BY: CHRIS [facility] Kggeds7[address] [facility] [id number] Information: NURSE DRAW ALP enzyme act/vol 81 [iU]/L Normal 39-117 [facility] Work Phone: Comment on above: PATIENT WAS FASTINGP ERFORMED BY: CHRIS [facility] Tzwlng2512 [address] [facility] [id number] Information: NURSE DRAW ALT [Catalytic activity/Vol] 22 U/L Normal 0-32 [facility]; [facility] Internal Medicine Work Phone: Comment on above: PATIENT WAS FASTINGP ERFORMED BY: CHRIS ToritoGuerrero BatesObegzj5662 [facility] [id number] Information: NURSE DRAW ALT enzyme act/vol 22 [iU]/L Normal 0-32 [facility] Internal Medicine Work Phone: Comment on above: PATIENT WAS FASTINGP ERFORMED BY: CHRIS Bateslin6370 [facility] [id number] Information: NURSE DRAW AST [Catalytic activity/Vol] 18 U/L Normal 0-40 [facility] Internal Medicine; [facility] Internal Medicine Work Phone: Comment on above: PATIENT WAS FASTINGP ERFORMED BY: CHRIS Bateslin6370 [facility] [id number] Information: NURSE DRAW AST enzyme act/vol 18 [iU]/L Normal 0-40 [facility] Internal Medicine Work Phone: Comment on above: PATIENT WAS FASTINGP ERFORMED BY: CHRIS Bateslin6370 [facility] [id number] Information: NURSE DRAW Bilirubin mass conc 0.6 mg/dL Normal 0.0-1.2 [facility] [place] Internal Medicine Work Phone: Comment on above: PATIENT WAS FASTINGP ERFORMED BY: CHRIS Bateslin6370 [facility] [id number] Information: NURSE DRAW Calcium mass conc 10.0 mg/dL Normal 8.7-10.3 [facility] [place] Internal Medicine Work Phone: Comment on above: PATIENT WAS FASTINGP ERFORMED BY: CHRIS LabGuerrero BatesFnfgcw9314 [facility] [id number] Information: NURSE DRAW Chloride molar conc 100 mmol/L Normal 96-106 [facility] [place] Internal Medicine Work Phone: Comment on above: PATIENT WAS FASTINGP ERFORMED BY: CHRIS Bateslin6370 [facility] [id number] Information: NURSE DRAW CO2 molar conc 20 mmol/L Normal 18-29 Comprehens domingo Internal Medicine Work Phone: Comment on above: PATIENT WAS FASTINGP ERFORMED BY: [place] 6196070 [facility] [id number] Information: NURSE DRAW Creatinine mass conc 0.52 mg/dL Abnormal 0.57-1.00 Comp rehensive Internal Medicine Work Phone: Comment on above: PATIENT WAS FASTINGP ERFORMED BY: [address] [id number] Information: NURSE DRAW GFR/1.73 sq M predicted among blacks CKD-EPI vol rate/area (S/P/Bld) 120 mL/min/1.73 Normal Comprehensiv e Internal Medicine Work Phone: Comment on above: PATIENT WAS FASTINGP ERFORMED BY: [address] [id number] Information: NURSE DRAW GFR/1.73 sq M predicted among non-blacks CKD-EPI vol rate/area (S/P/Bld) 104 mL/min/1.73 Normal [facility] Work Phone: Comment on above: PATIENT WAS FASTINGP ERFORMED BY: [place] 6196070 [facility] [id number] Information: NURSE DRAW Globulin Calculated mass conc (S) 3.2 g/dL Normal 1.5-4.5 [facility] Work Phone: Globulin mass conc (S) 3.2 g/dL Normal 1.5-4.5 [facility] Work Phone: Comment on above: PATIENT WAS FASTINGP ERFORMED BY: [place] 6196070 [facility] [id number] Information: NURSE DRAW Glucose mass conc 89 mg/dL Normal 65-99 Compreh ensive Internal Medicine Work Phone: Comment on above: Specimen received he molyzed. Clinical correlation indicated. PATIENT WAS FASTINGP ERFORMED BY: CHRIS [facility] Qbrfyy59[address] [facility] [id number] Information: NURSE DRAW Potassium molar conc 4.0 mmol/L Normal 3.5-5.2 Comp rehensive Internal Medicine Work Phone: Comment on above: Specimen received he molyzed. Clinical correlation indicated. PATIENT WAS FASTINGP ERFORMED BY: LabSt. [facility] HospitalHkhblo1243 [address] [facility] [id number] Information: NURSE DRAW Protein mass conc 7.6 g/dL Normal 6.0-8.5 Compreh ensive Internal Medicine Work Phone: Comment on above: PATIENT WAS FASTINGP ERFORMED BY: LabSt. [facility]'S HospitalTqnoyc0536 [facility] [id number] Information: NURSE DRAW Sodium molar conc 142 mmol/L Normal 134-144 Compreh ensive Internal Medicine Work Phone: Comment on above: PATIENT WAS FASTINGP ERFORMED BY: [facility] Euxxsl4839 [facility] [id number] Information: NURSE DRAW Urea nitrogen mass conc 16 mg/dL Normal 8-27 [facility] Work Phone: Comment on above: PATIENT WAS FASTINGP ERFORMED BY: [facility] Jlwiwo9875 [facility] [id number] Information: NURSE DRAW Urea nitrogen/Creatinine mass ratio 31 mg/mg Abnormal 12-28 [facility] Work Phone: Comment on above: PATIENT WAS FASTINGP ERFORMED BY: [facility] Ikyzfx9968 [facility] [id number] Information: NURSE DRAW PARATHORMONE ([id number])Ordered By: Bus Girl on 08-30-2017 Parathyrin.intact mass conc 23 pg/mL Normal 15-65 [facility] Work Phone: Comment on above: PATIENT WAS FASTINGP ERFORMED BY: [facility] Jgbgmu9014 [address] [facility] [id number] URINALYSIS ([id number])Ordered By : Bus Girl on 08-30-2017 Appearance Nom (U) Clear Normal Compre hensive Internal Medicine Work Phone: Comment on above: PATIENT WAS FASTINGP ERFORMED BY: CHRIS Sanchez6370 [address]Dublin [place] [id number] Bilirubin Ql (U) Negative Normal Comprehe nsive Internal Medicine Work Phone: Comment on above: PATIENT WAS FASTINGP ERFORMED BY: CHRIS Bateslin6370 [address] RoadDublin [place] [id number] Bilirubin Ql (U) Negative Normal Comprehe nsive Internal Medicine; [facility] Work Phone: Comment on above: PATIENT WAS FASTINGP ERFORMED BY: CHRIS Bateslin6370 [address] RoadDublin [place] [id number] Color Nom (U) Yellow Normal Comprehensi ve Internal Medicine Work Phone: Comment on above: PATIENT WAS FASTINGP ERFORMED BY: CHRIS Sanchez6370 [address] RoadDublin [place] [id number] Glucose Ql (U) Negative Normal Comprehens domingo Internal Medicine Work Phone: Comment on above: PATIENT WAS FASTINGP ERFORMED BY: CHRIS Bateslin6370 [address] RoadDublin [place] [id number] Glucose Ql (U) Negative Normal Comprehens domingo Internal Medicine; [facility] Work Phone: Comment on above: PATIENT WAS FASTINGP ERFORMED BY: CHRIS Sanchez6370 [address]Dublin [place] [id number] Hemoglobin Ql (U) Negative Normal Compreh ensive Internal Medicine Work Phone: Comment on above: PATIENT WAS FASTINGP ERFORMED BY: CHRIS LabGuerrero BatesXkxfwn0852 [address] RoadDublin [place] [id number] Hemoglobin Ql (U) Negative Normal Compreh ensive Internal Medicine; [facility] Work Phone: Comment on above: PATIENT WAS FASTINGP ERFORMED BY: CHRIS Bateslin6370 [address] RoadDublin [place] [id number] Hemoglobin Test strip Ql (U) Negative Normal [facility] Work Phone: Ketones Ql (U) Negative Normal Comprehens domingo Internal Medicine Work Phone: Comment on above: PATIENT WAS FASTINGP ERFORMED BY: CHRIS Sanchez6370 [address] RoadCataw[facility]in [place] [id number] Ketones Ql (U) Negative Normal Comprehens domingo Internal Medicine; [facility] Work Phone: Comment on above: PATIENT WAS FASTINGP ERFORMED BY: CHRIS Sanchez6370 [address] [facility] [id number] Leukocyte esterase Test strip Ql (U) Negative Normal [facility] Work Phone: Comment on above: PATIENT WAS FASTINGP ERFORMED BY: CHRIS Bateslin[address] [facility] [place] [id number] Leukocyte esterase Test strip Ql (U) Negative Normal [facility]; [facility] Work Phone: Comment on above: PATIENT WAS FASTINGP ERFORMED BY: CHRIS Sanchez[address] [facility] [id number] Microscopic observation LM Nom (Urine sed) MICNIP Normal [facility] Work Phone: Comment on above: Microscopic not doug cated and not performed. PATIENT WAS FASTINGP ERFORMED BY: CHRIS Bateslin[address] [facility] [place] [id number] Nitrite Ql (U) Negative Normal Comprehens domingo Internal Medicine Work Phone: Comment on above: PATIENT WAS FASTINGP ERFORMED BY: CHRIS Bateslin6370 [address] RoadCatawba [facility] Centerin [place] [id number] Nitrite Ql (U) Negative Normal Comprehens domingo Internal Medicine; [facility] Work Phone: Comment on above: PATIENT WAS FASTINGP ERFORMED BY: CHRIS Bateslin[address] [facility] [id number] Nitrite Test strip Ql (U) Negative Normal [facility] Work Phone: pH (U) 6.0 [pH] Normal 5.0-7.5 [facility] Work Phone: Comment on above: PATIENT WAS FASTINGP ERFORMED BY: CHRIS Sanchez6370 [address]Dublin [place] [id number] pH Test strip (U) 6.0 [pH] Normal 5.0-7.5 Compreh ensive Internal Medicine Work Phone: Protein Ql (U) Negative Normal Comprehens domingo Internal Medicine Work Phone: Comment on above: PATIENT WAS FASTINGP ERFORMED BY: CHRIS Sanchez6370 [address]Dublin [place] [id number] Protein Ql (U) Negative Normal Comprehens domingo Internal Medicine; [facility] Work Phone: Comment on above: PATIENT WAS FASTINGP ERFORMED BY: CHRIS Sanchez6370 [address]Dublin [place] [id number] Protein Test strip Ql (U) Negative Normal [facility] Work Phone: Specific gravity Relative Density (U) 1.015 1 Normal 1.005-1.03 0 [facility] Work Phone: Comment on above: PATIENT WAS FASTINGP ERFORMED BY: CHRIS Bateslin6370 [address]Dublin [place] [id number] Urobilinogen (U) [Mass/Vol] 0.2 mg/dL Normal 0.2-1.0 [facility]; [facility] Work Phone: Comment on above: PATIENT WAS FASTINGP ERFORMED BY: CHRIS Sanchez6370 [address] RoadDublin [place] [id number] Urobilinogen Test strip mass conc (U) 0.2 mg/dL Normal 0.2-1.0 Comprehensiv e Internal Medicine Work Phone: Comment on above: PATIENT WAS FASTINGP ERFORMED BY: CHRIS LabGuerrero BatesRodnzi4047 Gamez RoadDublin [place] [id number] C-REACTIVE PROTEIN ([id number])Or dered By: Bus Girl on 02-09-2017 CRP mass conc 2.6 mg/L Normal 0.0-4.9 Comprehensi ve Internal Medicine Work Phone: Comment on above: PATIENT NOT FASTINGP ERFORMED BY: CHRIS [facility] Ddqphn2070 Gamez RoadDublin [place] [id number] SED RATE ERYTHROCYTE ([id number]) Ordered By: Bus Girl on 02-09-2017 ESR Velocity (Bld) 10 mm/h Normal 0-40 [facility] Internal Medicine Work Phone: Comment on above: PATIENT NOT FASTINGP ERFORMED BY: CB [facility] Eulblh4506 [address]z RoadDublin [place] [id number] TSH ([id number])Ordered By: [facility] Labse m Manager State on 02-09-2017 Thyrotropin Qn 1.920 {uIU/mL} Normal 0.450-4.50 0 [facility] Work Phone: Comment on above: PATIENT NOT FASTINGP ERFORMED BY: CB [facility] Lzhuqs3476 [address]z RoadDublin [place] [id number] Vitamin B-12 (cyanocobalamin ) (45782)Ordered By: Bus Girl on 02-09-2017 Cobalamin (Vitamin B12) mass conc 457 pg/mL Normal 211-946 [facility] Work Phone: Comment on above: PATIENT NOT FASTINGP ERFORMED BY: CB [facility] Zcldkg2362 [address]z RoadDublin [place] [id number] CALCIFIDIOL (83748) VIT D 25 Ordered By: Bus Girl on 02-02-2017 25-Hydroxyvitamin D2+25-Hydroxyvitamin D3 mass conc 25.3 ng/mL Abnormal 30.0-100.0 [facility] Work Phone: Comment on above: Vitamin D deficiency has been defined by the [place] ofMedicine and an Endocrine Society practice guideline as alevel of serum 25-OH vitamin D less than 20 ng/mL (1,2).The Endocrine Society went on to further define vitamin Dinsufficiency as a level between 21 and 29 ng/mL (2).1. IOM ([place] of Medicine). 2010. Dietary reference intakes for calcium and D. [place]: The National Academies Press.2. Amara MF, Pat NC, Enrike MICHAELS, et al. Evaluation, treatment, and prevention of vitamin D deficiency: an Endocrine Society clinical practice guideline. JCEM. 2010; 96(7):1911-30. PATIENT WAS FASTINGP ERFORMED BY: [place] 6196070 [facility] [id number] CBC WITH MANUAL DIFF ([id number]) Ordered By: Bus Girl on 02-02-2017 Basophils #/vol (Bld) 0.0 {x10E3/uL} Normal 0.0-0.2 [facility] Work Phone: Comment on above: PATIENT WAS FASTINGP ERFORMED BY: [address] [id number] Information: NURSE DRAW Basophils (Bld) [#/Vol] 0.0 10*3/uL Normal 0.0-0.2 [facility]; [facility] Work Phone: Comment on above: PATIENT WAS FASTINGP ERFORMED BY: [address] [id number] Information: NURSE DRAW Basophils Auto #/vol (Bld) 0.0 {x10E3/uL} Normal 0.0-0.2 [facility] Work Phone: Basophils/100 WBC (Bld) 1 % Normal [facility] Work Phone: Comment on above: PATIENT WAS FASTINGP ERFORMED BY: [address] [id number] Information: NURSE DRAW Basophils/100 WBC Auto (Bld) 1 % Normal [facility] Work Phone: Eosinophils #/vol (Bld) 0.2 {x10E3/uL} Normal 0.0-0.4 [facility] Work Phone: Comment on above: PATIENT WAS FASTINGP ERFORMED BY: [address] [id number] Information: NURSE DRAW Eosinophils (Bld) [#/Vol] 0.2 10*3/uL Normal 0.0-0.4 [facility]; [facility] Work Phone: Comment on above: PATIENT WAS FASTINGP ERFORMED BY: [facility]6370 [facility] [id number] Information: NURSE DRAW Eosinophils Auto #/vol (Bld) 0.2 {x10E3/uL} Normal 0.0-0.4 [facility] Work Phone: Eosinophils/100 WBC (Bld) 2 % Normal [facility] Work Phone: Comment on above: PATIENT WAS FASTINGP ERFORMED BY: CHRIS [place] [id number] [facility] [id number] Information: NURSE DRAW Eosinophils/100 WBC Auto (Bld) 2 % Normal [facility] Work Phone: Erythrocyte distribution width Auto Ratio (RBC) 15.2 % Normal 12.3-15.4 [facility] Work Phone: Erythrocyte distribution width Ratio (RBC) 15.2 % Normal 12.3-15.4 [facility] Work Phone: Comment on above: PATIENT WAS FASTINGP ERFORMED BY: [place] 6196070 [facility] [id number] Information: NURSE DRAW Hematocrit Auto Volume Fraction (Bld) 45.4 % Normal 34.0-46.6 [facility] Internal Medicine Work Phone: Hematocrit Volume Fraction (Bld) 45.4 % Normal 34.0-46.6 [facility] Work Phone: Comment on above: PATIENT WAS FASTINGP ERFORMED BY: CHRIS [place] [id number] [facility] [id number] Information: NURSE DRAW Hemoglobin mass conc (Bld) 15.5 g/dL Normal 11.1-15.9 [facility] Work Phone: Comment on above: PATIENT WAS FASTINGP ERFORMED BY: [place] 6196070 [facility] [id number] Information: NURSE DRAW Immature granulocytes #/vol (Bld) 0.0 {x10E3/uL} Normal 0.0-0.1 [facility] Work Phone: Comment on above: PATIENT WAS FASTINGP ERFORMED BY: [address] [id number] Information: NURSE DRAW Immature granulocytes (Bld) [#/Vol] 0.0 10*3/uL Normal 0.0-0.1 [facility]; [facility] Work Phone: Comment on above: PATIENT WAS FASTINGP ERFORMED BY: [address] [id number] Information: NURSE DRAW Immature granulocytes/100 WBC (Bld) 0 % Normal [facility] Work Phone: Comment on above: PATIENT WAS FASTINGP ERFORMED BY: [address] [id number] Information: NURSE DRAW Lymphocytes #/vol (Bld) 2.2 {x10E3/uL} Normal 0.7-3.1 [facility] Work Phone: Comment on above: PATIENT WAS FASTINGP ERFORMED BY: [address] [id number] Information: NURSE DRAW Lymphocytes (Bld) [#/Vol] 2.2 10*3/uL Normal 0.7-3.1 [facility]; [facility] Work Phone: Comment on above: PATIENT WAS FASTINGP ERFORMED BY: [address] [id number] Information: NURSE DRAW Lymphocytes Auto #/vol (Bld) 2.2 {x10E3/uL} Normal 0.7-3.1 [facility] Work Phone: Lymphocytes/100 WBC (Bld) 30 % Normal [facility] Work Phone: Comment on above: PATIENT WAS FASTINGP ERFORMED BY: [address] [id number] Information: NURSE DRAW Lymphocytes/100 WBC Auto (Bld) 30 % Normal [facility] Work Phone: MCH Auto Entitic mass (RBC) 29.2 pg Normal 26.6-33.0 [facility] Work Phone: MCH Entitic mass (RBC) 29.2 pg Normal 26.6-33.0 [facility] Work Phone: Comment on above: PATIENT WAS FASTINGP ERFORMED BY: CHRIS [address] [id number] Information: NURSE DRAW MCHC Auto mass conc (RBC) 34.1 g/dL Normal 31.5-35.7 [facility] Work Phone: MCHC mass conc (RBC) 34.1 g/dL Normal 31.5-35.7 Comp [facility] Internal Medicine Work Phone: Comment on above: PATIENT WAS FASTINGP ERFORMED BY: CHRIS [address] [id number] Information: NURSE DRAW MCV Auto Entitic volume (RBC) 86 fL Normal 79-97 [facility] Work Phone: MCV Entitic volume (RBC) 86 fL Normal 79-97 [facility] Work Phone: Comment on above: PATIENT WAS FASTINGP ERFORMED BY: CHRIS [address] [id number] Information: NURSE DRAW Monocytes #/vol (Bld) 0.5 {x10E3/uL} Normal 0.1-0.9 [facility] Work Phone: Comment on above: PATIENT WAS FASTINGP ERFORMED BY: CHRIS [address] [id number] Information: NURSE DRAW Monocytes (Bld) [#/Vol] 0.5 10*3/uL Normal 0.1-0.9 [facility]; [facility] Work Phone: Comment on above: PATIENT WAS FASTINGP ERFORMED BY: CHRIS [address] [id number] Information: NURSE DRAW Monocytes Auto #/vol (Bld) 0.5 {x10E3/uL} Normal 0.1-0.9 [facility] Work Phone: Monocytes/100 WBC (Bld) 7 % Normal [facility] Work Phone: Comment on above: PATIENT WAS FASTINGP ERFORMED BY: CHRIS Bateslin6370 [facility] [id number] Information: NURSE DRAW Monocytes/100 WBC Auto (Bld) 7 % Normal [facility] Work Phone: Neutrophils #/vol (Bld) 4.4 {x10E3/uL} Normal 1.4-7.0 [facility] Work Phone: Comment on above: PATIENT WAS FASTINGP ERFORMED BY: CHRIS Bates[address] [id number] Information: NURSE DRAW Neutrophils (Bld) [#/Vol] 4.4 10*3/uL Normal 1.4-7.0 [facility]; [facility] Work Phone: Comment on above: PATIENT WAS FASTINGP ERFORMED BY: CHRIS Bates[address] [id number] Information: NURSE DRAW Neutrophils Auto #/vol (Bld) 4.4 {x10E3/uL} Normal 1.4-7.0 [facility] Work Phone: Neutrophils/100 WBC (Bld) 60 % Normal [facility] Work Phone: Comment on above: PATIENT WAS FASTINGP ERFORMED BY: CHRIS Bates[address] [id number] Information: NURSE DRAW Neutrophils/100 WBC Auto (Bld) 60 % Normal [facility] Work Phone: Platelets #/vol (Bld) 295 {x10E3/uL} Normal 150-379 [facility] Work Phone: Comment on above: PATIENT WAS FASTINGP ERFORMED BY: CHRIS [address] [id number] Information: NURSE DRAW Platelets (Bld) [#/Vol] 295 10*3/uL Normal 150-379 [facility]; [facility] Internal Medicine Work Phone: Comment on above: PATIENT WAS FASTINGP ERFORMED BY: CHRIS Bates[address] [id number] Information: NURSE DRAW Platelets Auto #/vol (Bld) 295 {x10E3/uL} Normal 150-379 [facility] Internal Medicine Work Phone: RBC #/vol (Bld) 5.31 {x10E6/uL} Abnormal 3.77-5.28 [facility] Work Phone: Comment on above: PATIENT WAS FASTINGP ERFORMED BY: CHRIS [facility] HospitalPat[address] [id number] Information: NURSE DRAW RBC (Bld) [#/Vol] 5.31 10*6/uL Abnormal 3.77-5.28 [facility] [place] Internal Medicine; [facility] Internal Medicine Work Phone: Comment on above: PATIENT WAS FASTINGP ERFORMED BY: CHRIS [address] [id number] Information: NURSE DRAW RBC Auto #/vol (Bld) 5.31 {x10E6/uL} Abnormal 3.77-5.28 [facility] Internal Medicine Work Phone: WBC #/vol (Bld) 7.4 {x10E3/uL} Normal 3.4-10.8 [facility] [place] Internal Medicine Work Phone: Comment on above: PATIENT WAS FASTINGP ERFORMED BY: CHRIS [address] [id number] Information: NURSE DRAW WBC (Bld) [#/Vol] 7.4 10*3/uL Normal 3.4-10.8 [facility] Internal Medicine; [facility] Internal Medicine Work Phone: Comment on above: PATIENT WAS FASTINGP ERFORMED BY: CHRIS [address] [id number] Information: NURSE DRAW WBC Auto #/vol (Bld) 7.4 {x10E3/uL} Normal 3.4-10.8 [facility] Work Phone: HgA1C , Office ([id number])Ordere d By: ARIEL Bradshaw on 02-02-2017 Hemoglobin A1c/Hemoglobin.total mass fraction (Bld) 5.0 % Normal 4.6 - 7.1 Comprehensiv e Internal Medicine Work Phone: Lipid Panel ([id number])Ordered B y: Bus Girl on 02-02-2017 Cholesterol in HDL mass conc 45 mg/dL Normal [facility] Work Phone: Comment on above: PATIENT WAS FASTINGP ERFORMED BY: CHRIS [facility] Ooacks[address] LvmaeDublin [place] [id number] Cholesterol in LDL mass conc 102 mg/dL Abnormal 0-99 [facility] Work Phone: Comment on above: PATIENT WAS FASTINGP ERFORMED BY: CHRIS [facility] Rvtbax[address] WHATTblin [place] [id number] Cholesterol in LDL/Cholesterol in HDL mass ratio 2.3 {ratio_units} Normal 0.0-3.2 [facility] Work Phone: Comment on above: LDL/HDL Ratio Men Wo men 1/2 Avg.Risk 1.0 1.5 Avg.Risk 3.6 3.2 2X Avg.Risk 6.2 5.0 3X Avg.Risk 8.0 6.1 PATIENT WAS FASTINGP ERFORMED BY: CHRIS [facility] Nbiubn[address] WHATTin [place] [id number] Cholesterol in VLDL mass conc 36 mg/dL Normal 5-40 [facility] Work Phone: Comment on above: PATIENT WAS FASTINGP ERFORMED BY: CHRIS [facility] Omdevw[address] LvmaeDublin [place] [id number] Cholesterol mass conc 183 mg/dL Normal 100-199 [facility] prehensive Internal Medicine Work Phone: Comment on above: PATIENT WAS FASTINGP ERFORMED BY: CHRIS [facility] Bhegby[address] LvmaeDublin [place] [id number] Triglyceride mass conc 179 mg/dL Abnormal 0-149 [facility] Work Phone: Comment on above: PATIENT WAS FASTINGP ERFORMED BY: CB [facility] Ekgzgl9728 [address]z RoadDublin [place] [id number] Metabolic Panel, Comprehensi ve ([id number])Ordered By: Bus Girl on 02-02-2017 Albumin mass conc 4.3 g/dL Normal 3.6-4.8 [facility] Internal [facility] Work Phone: Comment on above: PATIENT WAS FASTINGP ERFORMED BY: CB [facility] Tmrdhp2011 [address]z RoadDublin [place] [id number] Albumin/Globulin mass ratio 1.4 {ratio} Normal 1.2-2.2 [facility] Work Phone: Comment on above: PATIENT WAS FASTINGP ERFORMED BY: CB [facility] Xcyfue8723 [address]z RoadDublin [place] [id number] ALP [Catalytic activity/Vol] 65 U/L Normal 39-117 [facility]; [facility] Work Phone: Comment on above: PATIENT WAS FASTINGP ERFORMED BY: CB [facility] Dywlko0857 [address]z RoadDublin [place] [id number] ALP enzyme act/vol 65 [iU]/L Normal 39-117 [facility] Internal Medicine Work Phone: Comment on above: PATIENT WAS FASTINGP ERFORMED BY: [facility] Xngvfj8168 [address] RoadDublin [place] [id number] ALT [Catalytic activity/Vol] 27 U/L Normal 0-32 [facility]; [facility] Work Phone: Comment on above: PATIENT WAS FASTINGP ERFORMED BY: CB [facility] Auseos6943 [address] RoadDublin [place] [id number] ALT enzyme act/vol 27 [iU]/L Normal 0-32 [facility] Internal Medicine Work Phone: Comment on above: PATIENT WAS FASTINGP ERFORMED BY: CB [facility] Prexjh1956 [address] RoadDublin [place] [id number] AST [Catalytic activity/Vol] 16 U/L Normal 0-40 [facility]; [facility] Work Phone: Comment on above: PATIENT WAS FASTINGP ERFORMED BY: CHRIS [facility] Fizidj0615 [address] RoadDublin [place] [id number] AST enzyme act/vol 16 [iU]/L Normal 0-40 [facility] Internal [facility] Work Phone: Comment on above: PATIENT WAS FASTINGP ERFORMED BY: CHRIS [facility] Rpkcjn0985 [address]z RoadDublin [place] [id number] Bilirubin mass conc 0.8 mg/dL Normal 0.0-1.2 Compr ensive Internal Medicine Work Phone: Comment on above: PATIENT WAS FASTINGP ERFORMED BY: CHRIS [facility] Oenkio2495 [address] RoadDublin [place] [id number] Calcium mass conc 10.2 mg/dL Normal 8.7-10.3 Compreh [facility] Internal Medicine Work Phone: Comment on above: PATIENT WAS FASTINGP ERFORMED BY: CHRIS [facility] Xhsidd0365 [address] Roadblin [place] [id number] Chloride molar conc 100 mmol/L Normal 96-106 [facility]pr [facility] Internal Medicine Work Phone: Comment on above: PATIENT WAS FASTINGP ERFORMED BY: CHRIS [facility] Emarbt0491 [address] Roadblin [place] [id number] CO2 molar conc 22 mmol/L Normal 18-29 Comprehens domingo Internal Medicine Work Phone: Comment on above: PATIENT WAS FASTINGP ERFORMED BY: CHRIS [facility] Rrnlvn9518 [address] RoadDublin [place] [id number] Creatinine mass conc 0.47 mg/dL Abnormal 0.57-1.00 [facility] Work Phone: Comment on above: PATIENT WAS FASTINGP ERFORMED BY: CHRIS [facility] Pohhfi8696 [address] RoadDublin [place] [id number] GFR/1.73 sq M predicted among blacks CKD-EPI vol rate/area (S/P/Bld) 124 mL/min/1.73 Normal Comprehensiv e Internal Medicine Work Phone: Comment on above: PATIENT WAS FASTINGP ERFORMED BY: CHRIS [facility] Celduv5794 [address]z RoadCatawba Valley Medical Centerin [place] [id number] GFR/1.73 sq M predicted among non-blacks CKD-EPI vol rate/area (S/P/Bld) 108 mL/min/1.73 Normal [facility] Work Phone: Comment on above: PATIENT WAS FASTINGP ERFORMED BY: CHRIS [facility] HospitalGuerrero BatesYfcgwe4978 [facility] [id number] Globulin Calculated mass conc (S) 3.1 g/dL Normal 1.5-4.5 [facility] Work Phone: Globulin mass conc (S) 3.1 g/dL Normal 1.5-4.5 [facility] Work Phone: Comment on above: PATIENT WAS FASTINGP ERFORMED BY: CHRIS Bateslin6370 [facility] [id number] Glucose mass conc 94 mg/dL Normal 65-99 Compreh ensive Internal Medicine Work Phone: Comment on above: PATIENT WAS FASTINGP ERFORMED BY: CHRIS UgarteNctrudi BatesEplgke1562 [facility] [id number] Potassium molar conc 3.8 mmol/L Normal 3.5-5.2 Comp rehensive Internal Medicine Work Phone: Comment on above: PATIENT WAS FASTINGP ERFORMED BY: CHRIS Bateslin6370 [facility] [id number] Protein mass conc 7.4 g/dL Normal 6.0-8.5 Compreh ensive Internal Medicine Work Phone: Comment on above: PATIENT WAS FASTINGP ERFORMED BY: CHRIS [facility] Mvdbls8092 [facility] [id number] Sodium molar conc 142 mmol/L Normal 134-144 Compreh ensive Internal Medicine Work Phone: Comment on above: PATIENT WAS FASTINGP ERFORMED BY: CHRIS [place] [id number] [facility] [id number] Urea nitrogen mass conc 10 mg/dL Normal 8-27 [facility] Work Phone: Comment on above: PATIENT WAS FASTINGP ERFORMED BY: [facility]6370 [facility] [id number] Urea nitrogen/Creatinine mass ratio 21 mg/mg Normal 12- [facility] Work Phone: Comment on above: PATIENT WAS FASTINGP ERFORMED BY: [place] 6196070 [facility] [id number] CBC with auto diff ([id number])Or dered By: Bus Girl on 08-10-2015 Basophils #/vol (Bld) 0.0 {x10E3/uL} Normal 0.0-0.2 [facility] Work Phone: Comment on above: PATIENT WAS FASTINGP ERFORMED BY: [address] [id number] Information: [id number] Basophils (Bld) [#/Vol] 0.0 10*3/uL Normal 0.0-0.2 [facility]; [facility] Work Phone: Comment on above: PATIENT WAS FASTINGP ERFORMED BY: [facility]6370 [facility] [id number] Information: [id number] Basophils Auto #/vol (Bld) 0.0 {x10E3/uL} Normal 0.0-0.2 [facility] Work Phone: Basophils/100 WBC (Bld) 0 % Normal [facility] Work Phone: Comment on above: PATIENT WAS FASTINGP ERFORMED BY: [place] [address]196070 [facility] [id number] Information: [id number] Basophils/100 WBC Auto (Bld) 0 % Normal [facility] Work Phone: Eosinophils #/vol (Bld) 0.3 {x10E3/uL} Normal 0.0-0.4 [facility] Work Phone: Comment on above: PATIENT WAS FASTINGP ERFORMED BY: [address] [id number] Information: [id number] Eosinophils (Bld) [#/Vol] 0.3 10*3/uL Normal 0.0-0.4 [facility]; [facility] Work Phone: Comment on above: PATIENT WAS FASTINGP ERFORMED BY: CHRIS [place] [id number] [facility] [id number] Information: [id number] Eosinophils Auto #/vol (Bld) 0.3 {x10E3/uL} Normal 0.0-0.4 [facility] Work Phone: Eosinophils/100 WBC (Bld) 3 % Normal [facility] Work Phone: Comment on above: PATIENT WAS FASTINGP ERFORMED BY: CHRIS [facility] Qvsqtq4123 [facility] [id number] Information: [id number] Eosinophils/100 WBC Auto (Bld) 3 % Normal [facility] Work Phone: Erythrocyte distribution width Auto Ratio (RBC) 15.3 % Normal 12.3-15.4 [facility] Work Phone: Erythrocyte distribution width Ratio (RBC) 15.3 % Normal 12.3-15.4 [facility] Work Phone: Comment on above: PATIENT WAS FASTINGP ERFORMED BY: [address] [id number] Information: [id number] Hematocrit Auto Volume Fraction (Bld) 46.5 % Normal 34.0-46.6 [facility] Internal Medicine Work Phone: Hematocrit Volume Fraction (Bld) 46.5 % Normal 34.0-46.6 [facility] Work Phone: Comment on above: PATIENT WAS FASTINGP ERFORMED BY: CHRIS [place] [id number] [facility] [id number] Information: [id number] Hemoglobin mass conc (Bld) 15.7 g/dL Normal 11.1-15.9 [facility] Work Phone: Comment on above: PATIENT WAS FASTINGP ERFORMED BY: [place] 6196070 [facility] [id number] Information: [id number] Immature granulocytes #/vol (Bld) 0.0 {x10E3/uL} Normal 0.0-0.1 [facility] Work Phone: Comment on above: PATIENT WAS FASTINGP ERFORMED BY: [address] [id number] Information: [id number] Immature granulocytes (Bld) [#/Vol] 0.0 10*3/uL Normal 0.0-0.1 [facility]; [facility] Work Phone: Comment on above: PATIENT WAS FASTINGP ERFORMED BY: [address] [id number] Information: [id number] Immature granulocytes/100 WBC (Bld) 0 % Normal [facility] Work Phone: Comment on above: PATIENT WAS FASTINGP ERFORMED BY: [address] [id number] Information: [id number] Lymphocytes #/vol (Bld) 1.8 {x10E3/uL} Normal 0.7-3.1 [facility] Work Phone: Comment on above: PATIENT WAS FASTINGP ERFORMED BY: [address] [id number] Information: [id number] Lymphocytes (Bld) [#/Vol] 1.8 10*3/uL Normal 0.7-3.1 [facility]; [facility] Work Phone: Comment on above: PATIENT WAS FASTINGP ERFORMED BY: [place] 6196070 [facility] [id number] Information: [id number] Lymphocytes Auto #/vol (Bld) 1.8 {x10E3/uL} Normal 0.7-3.1 [facility] Work Phone: Lymphocytes/100 WBC (Bld) 21 % Normal [facility] Work Phone: Comment on above: PATIENT WAS FASTINGP ERFORMED BY: CHRIS [place] [id number] [facility] [id number] Information: [id number] Lymphocytes/100 WBC Auto (Bld) 21 % Normal [facility] Work Phone: MCH Auto Entitic mass (RBC) 28.0 pg Normal 26.6-33.0 [facility] Work Phone: MCH Entitic mass (RBC) 28.0 pg Normal 26.6-33.0 [facility] Work Phone: Comment on above: PATIENT WAS FASTINGP ERFORMED BY: [address] [id number] Information: [id number] MCHC Auto mass conc (RBC) 33.8 g/dL Normal 31.5-35.7 [facility] Work Phone: MCHC mass conc (RBC) 33.8 g/dL Normal 31.5-35.7 Comp [facility] Internal Medicine Work Phone: Comment on above: PATIENT WAS FASTINGP ERFORMED BY: [address] [id number] Information: [id number] MCV Auto Entitic volume (RBC) 83 fL Normal 79-97 [facility] Work Phone: MCV Entitic volume (RBC) 83 fL Normal 79-97 [facility] Work Phone: Comment on above: PATIENT WAS FASTINGP ERFORMED BY: [place] [address]196070 [facility] [id number] Information: [id number] Monocytes #/vol (Bld) 0.5 {x10E3/uL} Normal 0.1-0.9 [facility] Work Phone: Comment on above: PATIENT WAS FASTINGP ERFORMED BY: CHRIS [facility]6370 [facility] [id number] Information: [id number] Monocytes (Bld) [#/Vol] 0.5 10*3/uL Normal 0.1-0.9 [facility]; [facility] Work Phone: Comment on above: PATIENT WAS FASTINGP ERFORMED BY: [address] [id number] Information: [id number] Monocytes Auto #/vol (Bld) 0.5 {x10E3/uL} Normal 0.1-0.9 [facility] Work Phone: Monocytes/100 WBC (Bld) 5 % Normal [facility] Work Phone: Comment on above: PATIENT WAS FASTINGP ERFORMED BY: [place] [address]196070 [facility] [id number] Information: [id number] Monocytes/100 WBC Auto (Bld) 5 % Normal [facility] Work Phone: Neutrophils #/vol (Bld) 5.9 {x10E3/uL} Normal 1.4-7.0 [facility] Work Phone: Comment on above: PATIENT WAS FASTINGP ERFORMED BY: [place] [address]196070 [facility] [id number] Information: [id number] Neutrophils (Bld) [#/Vol] 5.9 10*3/uL Normal 1.4-7.0 [facility]; [facility] Work Phone: Comment on above: PATIENT WAS FASTINGP ERFORMED BY: [place] [address]196070 [facility] [id number] Information: [id number] Neutrophils Auto #/vol (Bld) 5.9 {x10E3/uL} Normal 1.4-7.0 [facility] Work Phone: Neutrophils/100 WBC (Bld) 71 % Normal [facility] Work Phone: Comment on above: PATIENT WAS FASTINGP ERFORMED BY: CHRIS ToritoCox [place] Cmozgf4550 [facility] [id number] Information: [id number] Neutrophils/100 WBC Auto (Bld) 71 % Normal [facility] Work Phone: Platelets #/vol (Bld) 359 {x10E3/uL} Normal 150-379 [facility] Work Phone: Comment on above: PATIENT WAS FASTINGP ERFORMED BY: CHRIS [address] [id number] Information: [id number] Platelets (Bld) [#/Vol] 359 10*3/uL Normal 150-379 [facility]; [facility] Work Phone: Comment on above: PATIENT WAS FASTINGP ERFORMED BY: CHRIS [place] 4976870 [facility] [id number] Information: [id number] Platelets Auto #/vol (Bld) 359 {x10E3/uL} Normal 150-379 [facility] Work Phone: RBC #/vol (Bld) 5.61 {x10E6/uL} Abnormal 3.77-5.28 [facility] Work Phone: Comment on above: PATIENT WAS FASTINGP ERFORMED BY: CHRIS [place] [id number] [facility] [id number] Information: [id number] RBC (Bld) [#/Vol] 5.61 10*6/uL Abnormal 3.77-5.28 [facility] [place] Internal [facility]; [facility] Work Phone: Comment on above: PATIENT WAS FASTINGP ERFORMED BY: CHRIS [place] [id number] [facility] [id number] Information: [id number] RBC Auto #/vol (Bld) 5.61 {x10E6/uL} Abnormal 3.77-5.28 [facility] Work Phone: WBC #/vol (Bld) 8.5 {x10E3/uL} Normal 3.4-10.[address] [facility] Internal Medicine Work Phone: Comment on above: PATIENT WAS FASTINGP ERFORMED BY: CHRIS [facility] Xpmwiy6313 [facility] [id number] Information: [id number] WBC (Bld) [#/Vol] 8.5 10*3/uL Normal 3.4-10.8 Compre [facility] Internal Medicine; [facility] Work Phone: Comment on above: PATIENT WAS FASTINGP ERFORMED BY: [facility] Gvdwgz[address] LvmaeCone Health [facility] [id number] Information: [id number] WBC Auto #/vol (Bld) 8.5 {x10E3/uL} Normal 3.4-10.8 [facility] Work Phone: HgA1C , Office ([id number])Ordere d By: Elysia Barnard on 08-10-2015 Hemoglobin A1c/Hemoglobin.total mass fraction (Bld) 5.2 % Normal 4.6 - 7.1 Comprehensiv e Internal Medicine Work Phone: LIPID PANEL ([id number])Ordered B y: Bus Girl on 08-10-2015 Cholesterol in HDL mass conc 49 mg/dL Normal [facility] Work Phone: Comment on above: According to ATP-III Guidelines, HDL-C >59 mg/dL is considered anegative risk factor for CHD. PATIENT WAS FASTINGP ERFORMED BY: CB [facility] Qinqft1698 [address] WHATTAtrium Health Mercy [id number] Cholesterol in LDL mass conc 96 mg/dL Normal 0-99 [facility] Work Phone: Comment on above: PATIENT WAS FASTINGP ERFORMED BY: Melboss [facility] Nxksei5742 [address] LvmaeCone Health [facility] [id number] Cholesterol in LDL/Cholesterol in HDL mass ratio 2.0 {ratio_units} Normal 0.0-3.2 [facility] Work Phone: Comment on above: LDL/HDL Ratio Men Wo men 1/2 Avg.Risk 1.0 1.5 Avg.Risk 3.6 3.2 2X Avg.Risk 6.2 5.0 3X Avg.Risk 8.0 6.1 PATIENT WAS FASTINGP ERFORMED BY: CHRIS LabCotrudi Jxnupt6777 [address]z RoadDublin [place] [id number] Cholesterol in VLDL mass conc 32 mg/dL Normal 5-40 [facility] Work Phone: Comment on above: PATIENT WAS FASTINGP ERFORMED BY: CHRIS LabCotrudi BatesRrtgmv4903 [address] RoadDublin [place] [id number] Cholesterol mass conc 177 mg/dL Normal 100-199 [facility] prehensive Internal Medicine Work Phone: Comment on above: PATIENT WAS FASTINGP ERFORMED BY: CHRIS LabCotrudi BatesWpmmwe2612 [address]z RoadDublin [place] [id number] Triglyceride mass conc 159 mg/dL Abnormal 0-149 [facility] Work Phone: Comment on above: PATIENT WAS FASTINGP ERFORMED BY: CHRIS LabCotrudi Ujsigp8336 [address]z RoadDublin [place] [id number] METABOLIC PANEL, COMPREHENSI VE (01438)Ordered By: Bus Girl on 08-10-2015 Albumin mass conc 4.6 g/dL Normal 3.5-5.5 Compreh ensive Internal Medicine Work Phone: Comment on above: PATIENT WAS FASTINGP ERFORMED BY: CHRIS [facility] Zzskio2941 [address] RoadDublin [place] [id number] Albumin/Globulin mass ratio 1.4 {ratio} Normal 1.1-2.5 [facility] Work Phone: Comment on above: PATIENT WAS FASTINGP ERFORMED BY: CHRIS [facility] Xztxeh9168 [address] RoadDublin [place] [id number] ALP [Catalytic activity/Vol] 68 U/L Normal 39-117 [facility]; [facility] Work Phone: Comment on above: PATIENT WAS FASTINGP ERFORMED BY: CHRIS [facility] Ovbxxb4894 [address] RoadDublin [place] [id number] ALP enzyme act/vol 68 [iU]/L Normal 39-117 [facility] Internal Medicine Work Phone: Comment on above: PATIENT WAS FASTINGP ERFORMED BY: CHRIS [facility] Vxojtz6310 [address] RoadDublin [place] [id number] ALT [Catalytic activity/Vol] 28 U/L Normal 0-32 [facility]; [facility] Internal Medicine Work Phone: Comment on above: PATIENT WAS FASTINGP ERFORMED BY: CB [facility] Ctvrqh8282 [address] RoadDublin [place] [id number] ALT enzyme act/vol 28 [iU]/L Normal 0-32 [facility] Internal Medicine Work Phone: Comment on above: PATIENT WAS FASTINGP ERFORMED BY: [facility] Yjjawo4518 [address] RoadDublin [place] [id number] AST [Catalytic activity/Vol] 19 U/L Normal 0-40 [facility] Internal Medicine; [facility] Internal Medicine Work Phone: Comment on above: PATIENT WAS FASTINGP ERFORMED BY: [facility] Hdkaod0758 [address]z RoadDublin [place] [id number] AST enzyme act/vol 19 [iU]/L Normal 0-40 [facility] Internal Medicine Work Phone: Comment on above: PATIENT WAS FASTINGP ERFORMED BY: [facility] Iharqu8710 [address] RoadDublin [place] [id number] Bilirubin mass conc 0.4 mg/dL Normal 0.0-1.2 [facility] [place] Internal Medicine Work Phone: Comment on above: PATIENT WAS FASTINGP ERFORMED BY: [facility] Lsrouw6207 [address] RoadDublin [place] [id number] Calcium mass conc 10.4 mg/dL Abnormal 8.7-10.2 [facility] [place] Internal Medicine Work Phone: Comment on above: PATIENT WAS FASTINGP ERFORMED BY: [facility] Kmbuzn0949 [address] RoadDublin [place] [id number] Chloride molar conc 100 mmol/L Normal 97-108 [facility] Centerens[facility] Internal [facility] Work Phone: Comment on above: PATIENT WAS FASTINGP ERFORMED BY: CHRIS [facility] Xdksel5859 [address] Roadblin [place] [id number] CO2 molar conc 24 mmol/L Normal 18-29 Comprehens domingo Internal Medicine Work Phone: Comment on above: PATIENT WAS FASTINGP ERFORMED BY: CHRIS [facility] Nsgxbm0757 [address] [facility]in [place] [id number] Creatinine mass conc 0.50 mg/dL Abnormal 0.57-1.00 Comp rehensive Internal Medicine Work Phone: Comment on above: PATIENT WAS FASTINGP ERFORMED BY: CHRIS [facility] Acdufs[address] [facility] [id number] GFR/1.73 sq M predicted among blacks CKD-EPI vol rate/area (S/P/Bld) 123 mL/min/1.73 Normal Comprehensiv e Internal Medicine Work Phone: Comment on above: PATIENT WAS FASTINGP ERFORMED BY: CHRIS [facility] Zfydzq5[address] [facility] [id number] GFR/1.73 sq M predicted among non-blacks CKD-EPI vol rate/area (S/P/Bld) 107 mL/min/1.73 Normal [facility] Work Phone: Comment on above: PATIENT WAS FASTINGP ERFORMED BY: CHRIS [facility] Vqlcri2206 [address] [facility] [id number] Globulin Calculated mass conc (S) 3.4 g/dL Normal 1.5-4.5 [facility] Work Phone: Globulin mass conc (S) 3.4 g/dL Normal 1.5-4.5 [facility] Work Phone: Comment on above: PATIENT WAS FASTINGP ERFORMED BY: CHRIS [facility] Nbyxth5[address] [facility]in [place] [id number] Glucose mass conc 97 mg/dL Normal 65-99 Compreh ensive Internal Medicine Work Phone: Comment on above: PATIENT WAS FASTINGP ERFORMED BY: CHRIS [facility] Yegzqf1817 [facility] [id number] Potassium molar conc 4.1 mmol/L Normal 3.5-5.2 Comp rehensive Internal Medicine Work Phone: Comment on above: PATIENT WAS FASTINGP ERFORMED BY: [facility] Ntkess[address] [facility] [id number] Protein mass conc 8.0 g/dL Normal 6.0-8.5 Compreh ensive Internal Medicine Work Phone: Comment on above: PATIENT WAS FASTINGP ERFORMED BY: LabCoJersey Shore University Medical CenterOpwiyv4895 [facility] [id number] Sodium molar conc 142 mmol/L Normal 134-144 Compreh ensive Internal Medicine Work Phone: Comment on above: PATIENT WAS FASTINGP ERFORMED BY: [facility]6[address] [facility] [id number] Urea nitrogen mass conc 11 mg/dL Normal 6-24 [facility] Work Phone: Comment on above: PATIENT WAS FASTINGP ERFORMED BY: [facility] [id number] Urea nitrogen/Creatinine mass ratio 22 mg/mg Normal 9-23 [facility] Work Phone: Comment on above: PATIENT WAS FASTINGP ERFORMED BY: [facility] Rboeyr7185 [facility] [id number] Microscopic ExaminationOrder ed By: Bus Girl on 08-10-2015 Bacteria LM.HPF #/area (Urine sed) Few Normal [facility] Work Phone: Comment on above: PATIENT WAS FASTINGP ERFORMED BY: [facility] Mvdijs1140 [facility] [id number] Epithelial cells LM.HPF #/area (Urine sed) 0-10 Normal 0 - 10 [facility] Work Phone: Comment on above: PATIENT WAS FASTINGP ERFORMED BY: [facility] Xbtgcb0206 [facility] [id number] Mucus LM Ql (Urine sed) Present Normal [facility] Work Phone: Mucus Ql (Urine sed) Present Normal Comp rehensive Internal Medicine Work Phone: Comment on above: PATIENT WAS FASTINGP ERFORMED BY: CHRIS [facility] Nsueog9428 [address] RoadDublin [place] [id number] RBC LM.HPF #/area (Urine sed) None seen Normal 0 - 2 [facility] Work Phone: Comment on above: PATIENT WAS FASTINGP ERFORMED BY: CHRIS [facility] Yndzit4678 [address] RoadDublin [place] [id number] WBC LM.HPF #/area (Urine sed) 0-5 Normal 0 - 5 [facility] Work Phone: Comment on above: PATIENT WAS FASTINGP ERFORMED BY: CHRIS [facility] Lxwzmk3799 [address] RoadDublin [place] [id number] URINALYSIS, W/ MICRO ([id number]) Ordered By: Bus Girl on 08-10-2015 Appearance Nom (U) Clear Normal Compre hensive Internal Medicine Work Phone: Comment on above: PATIENT WAS FASTINGP ERFORMED BY: CHRIS [facility] Lmxxnv3269 [address] RoadDublin [place] [id number] Bilirubin Ql (U) Negative Normal Comprehe nsive Internal Medicine Work Phone: Comment on above: PATIENT WAS FASTINGP ERFORMED BY: CHRIS LabGuerrero Uweoha3266 [address] RoadDublin [place] [id number] Bilirubin Ql (U) Negative Normal Comprehe nsive Internal Medicine; [facility] Work Phone: Comment on above: PATIENT WAS FASTINGP ERFORMED BY: CHRIS [facility] Gksapx9960 [address] RoadDublin [place] [id number] Color Nom (U) Yellow Normal Comprehensi ve Internal Medicine Work Phone: Comment on above: PATIENT WAS FASTINGP ERFORMED BY: CHRIS [facility] Untbas7817 [address] RoadDublin [place] [id number] Glucose Ql (U) Negative Normal Comprehens domingo Internal Medicine Work Phone: Comment on above: PATIENT WAS FASTINGP ERFORMED BY: CHRIS [facility] Vwffmx2193 [address] RoadDublin [place] [id number] Glucose Ql (U) Negative Normal Comprehens domingo Internal Medicine; [facility] Work Phone: Comment on above: PATIENT WAS FASTINGP ERFORMED BY: CHRIS LabCotrudi BatesUgqswi0702 [address] RoadDublin [place] [id number] Hemoglobin Ql (U) Negative Normal Compreh ensive Internal Medicine Work Phone: Comment on above: PATIENT WAS FASTINGP ERFORMED BY: CHRIS [facility] Sqvnhl7943 [address] RoadDublin [place] [id number] Hemoglobin Ql (U) Negative Normal Compreh ensive Internal Medicine; [facility] Work Phone: Comment on above: PATIENT WAS FASTINGP ERFORMED BY: CHRIS LabGuerrero BatesYoygdc3604 [address] RoadDublin [place] [id number] Hemoglobin Test strip Ql (U) Negative Normal [facility] Work Phone: Ketones Ql (U) Negative Normal Comprehens domingo [facility] Medicine Work Phone: Comment on above: PATIENT WAS FASTINGP ERFORMED BY: CHRIS LabCotrudi BatesGvatnh0509 [address] RoadDublin [place] [id number] Ketones Ql (U) Negative Normal Comprehens domingo Internal Medicine; [facility] Work Phone: Comment on above: PATIENT WAS FASTINGP ERFORMED BY: CHRIS LabGuerrero BatesFzmhgi2885 [address] RoadDublin [place] [id number] Leukocyte esterase Test strip Ql (U) Negative Normal [facility] Work Phone: Comment on above: PATIENT WAS FASTINGP ERFORMED BY: CHRIS LabCotrudi BatesAxfyjv6465 [address] RoadDublin [place] [id number] Leukocyte esterase Test strip Ql (U) Negative Normal [facility]; [facility] Work Phone: Comment on above: PATIENT WAS FASTINGP ERFORMED BY: CHRIS [facility] Mkbbfb2093 [address] RoadDublin [place] [id number] Microscopic observation LM Nom (Urine sed) MICRON Normal [facility] Work Phone: Comment on above: Microscopic follows if indicated. PATIENT WAS FASTINGP ERFORMED BY: CHRIS [facility] Vbkkgn7356 [address] RoadDublin [place] [id number] Microscopic observation LM Nom (Urine sed) See below: Normal [facility] Work Phone: Comment on above: Microscopic was doug cated and was performed. PATIENT WAS FASTINGP ERFORMED BY: CHRIS [facility] Gmmjxo2486 [address] RoadDublin [place] [id number] Nitrite Ql (U) Negative Normal Comprehens domingo Internal Medicine Work Phone: Comment on above: PATIENT WAS FASTINGP ERFORMED BY: CHRIS [facility] Abtnsi8992 [address] RoadDublin [place] [id number] Nitrite Ql (U) Negative Normal Comprehens domingo Internal Medicine; [facility] Work Phone: Comment on above: PATIENT WAS FASTINGP ERFORMED BY: CHRIS [facility] Yuzfnx3274 [address] RoadDublin [place] [id number] Nitrite Test strip Ql (U) Negative Normal [facility] Work Phone: pH (U) 6.5 [pH] Normal 5.0-7.5 [facility] Work Phone: Comment on above: PATIENT WAS FASTINGP ERFORMED BY: CHRIS [facility] Ihxtvc9860 [address] RoadDublin [place] [id number] pH Test strip (U) 6.5 [pH] Normal 5.0-7.5 Compreh ensive Internal Medicine Work Phone: Protein Ql (U) Negative Normal Comprehens domingo Internal Medicine Work Phone: Comment on above: PATIENT WAS FASTINGP ERFORMED BY: CHRIS [facility] Krkjux8822 [address] RoadDublin [place] [id number] Protein Ql (U) Negative Normal Comprehens domingo Internal Medicine; [facility] Work Phone: Comment on above: PATIENT WAS FASTINGP ERFORMED BY: CHRIS [facility] Rndwaq0355 [address] RoadDublin [place] [id number] Protein Test strip Ql (U) Negative Normal [facility] Work Phone: Specific gravity Relative Density (U) 1.009 1 Normal 1.005-1.03 0 [facility] Work Phone: Comment on above: PATIENT WAS FASTINGP ERFORMED BY: [facility]6[address] [facility] [id number] Urobilinogen (U) [Mass/Vol] 0.2 mg/dL Normal 0.2-1.0 [facility]; [facility] Work Phone: Comment on above: PATIENT WAS FASTINGP ERFORMED BY: [facility]6[address] [facility] [id number] Urobilinogen Test strip mass conc (U) 0.2 mg/dL Normal 0.2-1.0 Comprehensiv e Internal Medicine Work Phone: Comment on above: PATIENT WAS FASTINGP ERFORMED BY: [facility]6[address] [facility] [id number] Blood Glucose , Office ([phone] 2)Ordered By: ARIEL Bradshaw on 05-01-2014 Glucose Glucometer molar conc (BldC) 103 1 Normal [facility] Work Phone: CBC W/AUTO DIFF WBC (40829)O rdered By: Bus Girl on 05-01-2014 Basophils #/vol (Bld) 0.1 {x10E3/uL} Normal 0.0-0.2 [facility] Work Phone: Comment on above: PATIENT WAS FASTINGP ERFORMED BY: [facility]6[address] [facility] [id number] Information: [id number] Basophils (Bld) [#/Vol] 0.1 10*3/uL Normal 0.0-0.2 [facility]; [facility] Work Phone: Comment on above: PATIENT WAS FASTINGP ERFORMED BY: [facility]6[address] [facility] [id number] Information: [id number] Basophils Auto #/vol (Bld) 0.1 {x10E3/uL} Normal 0.0-0.2 [facility] Work Phone: Basophils/100 WBC (Bld) 1 % Normal 0-3 [facility] Work Phone: Comment on above: The percent (%) diff erential reference intervals for normal cell typeswill be removed from patient reports beginning May 11, 2014,consistent with CAP standards. PATIENT WAS FASTINGP ERFORMED BY: [employer] Fdrioc2281 [facility] [id number] Information: [id number] Basophils/100 WBC Auto (Bld) 1 % Normal 0-3 [facility] Work Phone: Comment on above: The percent (%) diff erential reference intervals for normal cell typeswill be removed from patient reports beginning May 11, 2014,consistent with CAP standards. Eosinophils #/vol (Bld) 0.2 {x10E3/uL} Normal 0.0-0.4 [facility] Work Phone: Comment on above: PATIENT WAS FASTINGP ERFORMED BY: [employer] Habpxj8604 [facility] [id number] Information: [id number] Eosinophils (Bld) [#/Vol] 0.2 10*3/uL Normal 0.0-0.4 [facility]; [facility] Work Phone: Comment on above: PATIENT WAS FASTINGP ERFORMED BY: [employer] Zetbtp4208 [facility] [id number] Information: [id number] Eosinophils Auto #/vol (Bld) 0.2 {x10E3/uL} Normal 0.0-0.4 [facility] Work Phone: Eosinophils/100 WBC (Bld) 3 % Normal 0-5 [facility] Work Phone: Comment on above: The percent (%) diff erential reference intervals for normal cell typeswill be removed from patient reports beginning May 11, 2014,consistent with CAP standards. PATIENT WAS FASTINGP ERFORMED BY: [email or web address] Hospital6[address] [facility] [id number] Information: [id number] Eosinophils/100 WBC Auto (Bld) 3 % Normal 0-5 [facility] Work Phone: Comment on above: The percent (%) diff erential reference intervals for normal cell typeswill be removed from patient reports beginning May 11, 2014,consistent with CAP standards. Erythrocyte distribution width Auto Ratio (RBC) 15.0 % Normal 12.3-15.4 [facility] Work Phone: Erythrocyte distribution width Ratio (RBC) 15.0 % Normal 12.3-15.4 [facility] Work Phone: Comment on above: PATIENT WAS FASTINGP ERFORMED BY: CHRIS Incluyeme.comAscension Providence [facility] Hospital6[address] [facility] [id number] Information: [id number] Hematocrit Auto Volume Fraction (Bld) 42.4 % Normal 34.0-46.6 [facility] Internal Medicine Work Phone: Hematocrit Volume Fraction (Bld) 42.4 % Normal 34.0-46.6 [facility] Internal Medicine Work Phone: Comment on above: PATIENT WAS FASTINGP ERFORMED BY: CHRIS Incluyeme.comC[facility] Pkggis9976 [facility] [id number] Information: [id number] Hemoglobin mass conc (Bld) 14.5 g/dL Normal 11.1-15.9 [facility] Work Phone: Comment on above: PATIENT WAS FASTINGP ERFORMED BY: CHRIS Incluyeme.comSt. Louis Children'S HospitalMgnjvo4257 [facility] [id number] Information: [id number] Immature granulocytes #/vol (Bld) 0.0 {x10E3/uL} Normal 0.0-0.1 [facility] Work Phone: Comment on above: PATIENT WAS FASTINGP ERFORMED BY: CHRIS [email or web address].comAscension [facility] Hospital6[address] [facility] [id number] Information: [id number] Immature granulocytes (Bld) [#/Vol] 0.0 10*3/uL Normal 0.0-0.1 [facility]; [facility] Work Phone: Comment on above: PATIENT WAS FASTINGP ERFORMED BY: CHRIS UgarteCox Monett Knivya7844 [facility] [id number] Information: [id number] Immature granulocytes/100 WBC (Bld) 0 % Normal 0-2 [facility] Work Phone: Comment on above: The percent (%) diff erential reference intervals for normal cell typeswill be removed from patient reports beginning May 11, 2014,consistent with CAP standards. PATIENT WAS FASTINGP ERFORMED BY: [facility]6[address] [facility] [id number] Information: [id number] Lymphocytes #/vol (Bld) 2.1 {x10E3/uL} Normal 0.7-3.1 [facility] Work Phone: Comment on above: PATIENT WAS FASTINGP ERFORMED BY: [facility]6[address] [facility] [id number] Information: [id number] Lymphocytes (Bld) [#/Vol] 2.1 10*3/uL Normal 0.7-3.1 [facility]; [facility] Work Phone: Comment on above: PATIENT WAS FASTINGP ERFORMED BY: [facility]6[address] [facility] [id number] Information: [id number] Lymphocytes Auto #/vol (Bld) 2.1 {x10E3/uL} Normal 0.7-3.1 [facility] Work Phone: Lymphocytes/100 WBC (Bld) 27 % Normal 14-46 [facility] Work Phone: Comment on above: The percent (%) diff erential reference intervals for normal cell typeswill be removed from patient reports beginning May 11, 2014,consistent with CAP standards. PATIENT WAS FASTINGP ERFORMED BY: [facility]6[address] [facility] [id number] Information: [id number] Lymphocytes/100 WBC Auto (Bld) 27 % Normal 14-46 [facility] Work Phone: Comment on above: The percent (%) diff erential reference intervals for normal cell typeswill be removed from patient reports beginning May 11, 2014,consistent with CAP standards. MCH Auto Entitic mass (RBC) 28.2 pg Normal 26.6-33.0 [facility] Work Phone: MCH Entitic mass (RBC) 28.2 pg Normal 26.6-33.0 [facility] Work Phone: Comment on above: PATIENT WAS FASTINGP ERFORMED BY: [employer] Lkkmra0254 [facility] [id number] Information: [id number] MCHC Auto mass conc (RBC) 34.2 g/dL Normal 31.5-35.7 [facility] Work Phone: MCHC mass conc (RBC) 34.2 g/dL Normal 31.5-35.7 Comp [facility] Internal Medicine Work Phone: Comment on above: PATIENT WAS FASTINGP ERFORMED BY: [employer] Scpvvm9659 [facility] [id number] Information: [id number] MCV Auto Entitic volume (RBC) 82 fL Normal 79-97 [facility] Work Phone: MCV Entitic volume (RBC) 82 fL Normal 79-97 [facility] Work Phone: Comment on above: PATIENT WAS FASTINGP ERFORMED BY: [employer] Yvevgi4356 [facility] [id number] Information: [id number] Monocytes #/vol (Bld) 0.5 {x10E3/uL} Normal 0.1-0.9 [facility] Work Phone: Comment on above: PATIENT WAS FASTINGP ERFORMED BY: [employer]6[address] [facility] [id number] Information: [id number] Monocytes (Bld) [#/Vol] 0.5 10*3/uL Normal 0.1-0.9 [facility]; [facility] Work Phone: Comment on above: PATIENT WAS FASTINGP ERFORMED BY: CHRIS ToritoCox Monett Nrlccu5587 [facility] [id number] Information: [id number] Monocytes Auto #/vol (Bld) 0.5 {x10E3/uL} Normal 0.1-0.9 [facility] Work Phone: Monocytes/100 WBC (Bld) 7 % Normal - [facility] Work Phone: Comment on above: The percent (%) diff erential reference intervals for normal cell typeswill be removed from patient reports beginning May 11, 2014,consistent with CAP standards. PATIENT WAS FASTINGP ERFORMED BY: [address] [id number] Information: [id number] Monocytes/100 WBC Auto (Bld) 7 % Normal 12-06 [facility] Work Phone: Comment on above: The percent (%) diff erential reference intervals for normal cell typeswill be removed from patient reports beginning May 11, 2014,consistent with CAP standards. Neutrophils #/vol (Bld) 4.7 {x10E3/uL} Normal 1.4-7.0 [facility] Work Phone: Comment on above: PATIENT WAS FASTINGP ERFORMED BY: [facility]6[address] [facility] [id number] Information: [id number] Neutrophils (Bld) [#/Vol] 4.7 10*3/uL Normal 1.4-7.0 [facility]; [facility] Work Phone: Comment on above: PATIENT WAS FASTINGP ERFORMED BY: [facility]6[address] [facility] [id number] Information: [id number] Neutrophils Auto #/vol (Bld) 4.7 {x10E3/uL} Normal 1.4-7.0 [facility] Work Phone: Neutrophils/100 WBC (Bld) 62 % Normal 40-74 [facility] Work Phone: Comment on above: The percent (%) diff erential reference intervals for normal cell typeswill be removed from patient reports beginning May 11, 2014,consistent with CAP standards. PATIENT WAS FASTINGP ERFORMED BY: [facility]6[address] [facility] [id number] Information: [id number] Neutrophils/100 WBC Auto (Bld) 62 % Normal 40-74 [facility] Work Phone: Comment on above: The percent (%) diff erential reference intervals for normal cell typeswill be removed from patient reports beginning May 11, 2014,consistent with CAP standards. Platelets #/vol (Bld) 301 {x10E3/uL} Normal 150-379 [facility] Work Phone: Comment on above: PATIENT WAS FASTINGP ERFORMED BY: [facility]6[address] [facility] [id number] Information: [id number] Platelets (Bld) [#/Vol] 301 10*3/uL Normal 150-379 [facility]; [facility] Internal Medicine Work Phone: Comment on above: PATIENT WAS FASTINGP ERFORMED BY: [facility]6[address] [facility] [id number] Information: [id number] Platelets Auto #/vol (Bld) 301 {x10E3/uL} Normal 150-379 [facility] Work Phone: RBC #/vol (Bld) 5.15 {x10E6/uL} Normal 3.77-5.28 Comp [facility] Internal Medicine Work Phone: Comment on above: PATIENT WAS FASTINGP ERFORMED BY: [facility]6[address] [facility] [id number] Information: [id number] RBC (Bld) [#/Vol] 5.15 10*6/uL Normal 3.77-5.28 [facility] Centerensive Internal [facility]; [facility] Work Phone: Comment on above: PATIENT WAS FASTINGP ERFORMED BY: CHRIS Sanchez6370 [facility] [id number] Information: [id number] RBC Auto #/vol (Bld) 5.15 {x10E6/uL} Normal 3.77-5.28 [facility] Work Phone: WBC #/vol (Bld) 7.5 {x10E3/uL} Normal 3.4-10.8 [facility] Internal Medicine Work Phone: Comment on above: PATIENT WAS FASTINGP ERFORMED BY: CHRIS Alireza Sanchez6370 [facility] [id number] Information: [id number] WBC (Bld) [#/Vol] 7.5 10*3/uL Normal 3.4-10.8 [facility]; [facility] Work Phone: Comment on above: PATIENT WAS FASTINGP ERFORMED BY: CHRIS ToritoGIGAS Esmklq9970 [facility] [id number] Information: [id number] WBC Auto #/vol (Bld) 7.5 {x10E3/uL} Normal 3.4-10.8 [facility] Work Phone: HgA1C , Office ([phone])Ordere d By: ARIEL Bradshaw on 05-01-2014 Hemoglobin A1c/Hemoglobin.total mass fraction (Bld) 5.5 % Normal 4.6 - 7.1 Comprehensiv e Internal Medicine Work Phone: LIPID PANEL (12484)Ordered B y: Bus Girl on 05-01-2014 Cholesterol in HDL mass conc 51 mg/dL Normal [facility] Work Phone: Comment on above: According to ATP-III Guidelines, HDL-C >59 mg/dL is considered anegative risk factor for CHD. PATIENT WAS FASTINGP ERFORMED BY: CHRIS Maxta70 [facility] [id number] Cholesterol in LDL mass conc 123 mg/dL Abnormal 0-99 [facility] Work Phone: Comment on above: PATIENT WAS FASTINGP ERFORMED BY: CHRIS Alireza Sanchez[address] [facility] [place] [id number] Cholesterol in LDL/Cholesterol in HDL mass ratio 2.4 {ratio_units} Normal 0.0-3.2 [facility] Work Phone: Comment on above: PATIENT WAS FASTINGP ERFORMED BY: CHRIS Alireza Bateslin[address] [facility] [id number] Cholesterol in VLDL mass conc 40 mg/dL Normal 5-40 [facility] Work Phone: Comment on above: PATIENT WAS FASTINGP ERFORMED BY: CHRIS Alireza Bateslin6370 [facility] [id number] Cholesterol mass conc 214 mg/dL Abnormal 100-199 [facility] prehensive Internal Medicine Work Phone: Comment on above: PATIENT WAS FASTINGP ERFORMED BY: CHRIS Alireza Bateslin6370 [facility] [id number] Triglyceride mass conc 198 mg/dL Abnormal 0-149 [facility] Work Phone: Comment on above: PATIENT WAS FASTINGP ERFORMED BY: CHRIS Alireza Sanchez6370 [facility] [id number] METABOLIC PANEL, COMPREHENSI VE (43019)Ordered By: Bus Girl on 05-01-2014 Albumin mass conc 4.3 g/dL Normal 3.5-5.5 Compreh ensive Internal Medicine Work Phone: Comment on above: PATIENT WAS FASTINGP ERFORMED BY: CHRIS LabCotrudi Qaiago9058 [facility]zJackson [facility] Hospitalin [place] [id number] Albumin/Globulin mass ratio 1.5 {ratio} Normal 1.1-2.5 [facility] Work Phone: Comment on above: PATIENT WAS FASTINGP ERFORMED BY: CHRIS [facility] Xocfnx7461 [facility]in [place] [id number] ALP [Catalytic activity/Vol] 77 U/L Normal 39-117 [facility]; [facility] Internal Medicine Work Phone: Comment on above: PATIENT WAS FASTINGP ERFORMED BY: CHRIS LabGuerrero Sanchez6370 [address] RoadDublin [place] [id number] ALP enzyme act/vol 77 [iU]/L Normal 39-117 [facility] Internal Medicine Work Phone: Comment on above: PATIENT WAS FASTINGP ERFORMED BY: CHRIS LabPat Ntgkbg7442 [address] RoadDublin [place] [id number] ALT [Catalytic activity/Vol] 27 U/L Normal 0-32 [facility]; [facility] Internal Medicine Work Phone: Comment on above: PATIENT WAS FASTINGP ERFORMED BY: CHRIS Morris Terduy5568 [address] RoadDublin [place] [id number] ALT enzyme act/vol 27 [iU]/L Normal 0-32 [facility] Internal Medicine Work Phone: Comment on above: PATIENT WAS FASTINGP ERFORMED BY: CHRIS Morris Jlehsm9450 [address] Roadblin [place] [id number] AST [Catalytic activity/Vol] 16 U/L Normal 0-40 [facility] Internal Medicine; [facility] Internal Medicine Work Phone: Comment on above: PATIENT WAS FASTINGP ERFORMED BY: CHRIS Alireza Sanchez6370 [address]Dublin [place] [id number] AST enzyme act/vol 16 [iU]/L Normal 0-40 [facility] Internal Medicine Work Phone: Comment on above: PATIENT WAS FASTINGP ERFORMED BY: LabPat Vzyhok9314 [address] Roadblin [place] [id number] Bilirubin mass conc 0.4 mg/dL Normal 0.0-1.2 [facility] Internal Medicine Work Phone: Comment on above: PATIENT WAS FASTINGP ERFORMED BY: CHRIS LabPat Lxvale2804 [address] RoadDublin [place] [id number] Calcium mass conc 9.9 mg/dL Normal 8.7-10.2 [facility] Internal Medicine Work Phone: Comment on above: PATIENT WAS FASTINGP ERFORMED BY: CHRIS LabCo Cswpjg9549 [address] Roadblin [place] [id number] Chloride molar conc 98 mmol/L Normal 97-108 [facility]erens[facility] Internal Medicine Work Phone: Comment on above: PATIENT WAS FASTINGP ERFORMED BY: CHRIS LabCo Zkokut7027 [address] Roadblin [place] [id number] CO2 molar conc 26 mmol/L Normal 18-29 Comprehens domingo Internal Medicine Work Phone: Comment on above: PATIENT WAS FASTINGP ERFORMED BY: CHRIS LabCo Qnwuyp3044 Gamez RoadCatawba Valley Medical Centerin [place] [id number] Creatinine mass conc 0.43 mg/dL Abnormal 0.57-1.00 [facility] Internal [facility] Work Phone: Comment on above: PATIENT WAS FASTINGP ERFORMED BY: CH[facility]IS [facility] [place] Jqngyv[address]64 [address] [facility] [id number] GFR/1.73 sq M predicted among blacks CKD-EPI vol rate/area (S/P/Bld) 131 mL/min/1.73 Normal Comprehensiv e Internal Medicine Work Phone: Comment on above: PATIENT WAS FASTINGP ERFORMED BY: [facility] [facility] [place] [id number] GFR/1.73 sq M predicted among non-blacks CKD-EPI vol rate/area (S/P/Bld) 113 mL/min/1.73 Normal [facility] Work Phone: Comment on above: PATIENT WAS FASTINGP ERFORMED BY: [facility] [place] Xoikrd3352 [address] [facility] [id number] Globulin Calculated mass conc (S) 2.8 g/dL Normal 1.5-4.5 [facility] Work Phone: Globulin mass conc (S) 2.8 g/dL Normal 1.5-4.5 [facility] Work Phone: Comment on above: PATIENT WAS FASTINGP ERFORMED BY: Lab[facility] Gwfnyt1754 [address] [facility] [place] [id number] Glucose mass conc 88 mg/dL Normal 65-99 Compreh ensive Internal Medicine Work Phone: Comment on above: PATIENT WAS FASTINGP ERFORMED BY: CHRIS Bateslin6370 [facility] [id number] Potassium molar conc 4.1 mmol/L Normal 3.5-5.2 Comp rehensive Internal Medicine Work Phone: Comment on above: PATIENT WAS FASTINGP ERFORMED BY: CHRIS Bateslin6370 [facility] [id number] Protein mass conc 7.1 g/dL Normal 6.0-8.5 Compreh ensive Internal Medicine Work Phone: Comment on above: PATIENT WAS FASTINGP ERFORMED BY: CHRIS Sanchez6370 [facility] [id number] Sodium molar conc 140 mmol/L Normal 134-144 Compreh ensive Internal Medicine Work Phone: Comment on above: PATIENT WAS FASTINGP ERFORMED BY: CHRIS Sanchez6370 [facility] [id number] Urea nitrogen mass conc 12 mg/dL Normal 6-24 [facility] Work Phone: Comment on above: PATIENT WAS FASTINGP ERFORMED BY: CHRIS Bateslin6370 [facility] [id number] Urea nitrogen/Creatinine mass ratio 28 mg/mg Abnormal 9-23 [facility] Work Phone: Comment on above: PATIENT WAS FASTINGP ERFORMED BY: CHRIS Bateslin6370 [facility] [id number] Microscopic ExaminationOrder ed By: Bus Girl on 05-01-2014 Bacteria LM.HPF #/area (Urine sed) Few Normal [facility] Work Phone: Comment on above: PATIENT WAS FASTINGP ERFORMED BY: CHRIS Bateslin6370 [facility] [id number] Epithelial cells LM.HPF #/area (Urine sed) 0-10 Normal 0 - 10 [facility] Work Phone: Comment on above: PATIENT WAS FASTINGP ERFORMED BY: CB [facility] Zkpvio4800 [address] RoadDublin [place] [id number] Mucus LM Ql (Urine sed) Present Normal [facility] Work Phone: Mucus Ql (Urine sed) Present Normal Comp rehensive Internal Medicine Work Phone: Comment on above: PATIENT WAS FASTINGP ERFORMED BY: CHRIS [facility] Fnttse4038 [address] RoadDublin [place] [id number] RBC LM.HPF #/area (Urine sed) None seen Normal 0 - 2 [facility] Work Phone: Comment on above: PATIENT WAS FASTINGP ERFORMED BY: CHRIS [facility] Kpxdya9584 [address] RoadDublin [place] [id number] WBC LM.HPF #/area (Urine sed) 0-5 Normal 0 - 5 [facility] Work Phone: Comment on above: PATIENT WAS FASTINGP ERFORMED BY: CHRIS LabGuerrero BatesRypbii4040 [address] RoadDublin [place] [id number] URINALYSIS, W/ MICRO ([id number]) Ordered By: Bus Girl on 05-01-2014 Appearance Nom (U) Clear Normal Compre hensive Internal Medicine Work Phone: Comment on above: PATIENT WAS FASTINGP ERFORMED BY: CHRIS LabGuerrero Oihszb8434 [address] RoadDublin [place] [id number] Bilirubin Ql (U) Negative Normal Comprehe nsive Internal Medicine Work Phone: Comment on above: PATIENT WAS FASTINGP ERFORMED BY: CHRIS [facility] Xmvqnm3734 [address] RoadDublin [place] [id number] Bilirubin Ql (U) Negative Normal Comprehe nsive Internal Medicine; [facility] Work Phone: Comment on above: PATIENT WAS FASTINGP ERFORMED BY: CHRIS [facility] Ylqzse3261 [address] RoadDublin [place] [id number] Color Nom (U) Yellow Normal Comprehensi ve Internal Medicine Work Phone: Comment on above: PATIENT WAS FASTINGP ERFORMED BY: CHRIS [facility] Cntqko6762 [address] RoadDublin [place] [id number] Glucose Ql (U) Negative Normal Comprehens domingo Internal Medicine Work Phone: Comment on above: PATIENT WAS FASTINGP ERFORMED BY: CHRIS Sanchez6[address]Dublin [place] [id number] Glucose Ql (U) Negative Normal Comprehens domingo Internal Medicine; [facility] Work Phone: Comment on above: PATIENT WAS FASTINGP ERFORMED BY: CHRIS Luu70 [address] RoadDublin [place] [id number] Hemoglobin Ql (U) Negative Normal Compreh ensive Internal Medicine Work Phone: Comment on above: PATIENT WAS FASTINGP ERFORMED BY: CHRIS Luu70 [address] RoadDublin [place] [id number] Hemoglobin Ql (U) Negative Normal Compreh ensive Internal Medicine; [facility] Work Phone: Comment on above: PATIENT WAS FASTINGP ERFORMED BY: CHRIS Luu70 [address] RoadDublin [place] [id number] Hemoglobin Test strip Ql (U) Negative Normal [facility] Work Phone: Ketones Ql (U) Negative Normal Comprehens domingo Internal Medicine Work Phone: Comment on above: PATIENT WAS FASTINGP ERFORMED BY: CHRIS Sanchez6[address]ublin [place] [id number] Ketones Ql (U) Negative Normal Comprehens domingo Internal Medicine; [facility] Work Phone: Comment on above: PATIENT WAS FASTINGP ERFORMED BY: CHRIS Bateslin6[address]ublin [place] [id number] Leukocyte esterase Test strip Ql (U) Negative Normal [facility] Work Phone: Comment on above: PATIENT WAS FASTINGP ERFORMED BY: CHRIS Bateslin6[address]Dublin [place] [id number] Leukocyte esterase Test strip Ql (U) Negative Normal [facility]; [facility] Work Phone: Comment on above: PATIENT WAS FASTINGP ERFORMED BY: CHRIS Bateslin6[address]ublin [place] [id number] Microscopic observation LM Nom (Urine sed) See below: Normal [facility] Work Phone: Comment on above: Microscopic was doug cated and was performed. PATIENT WAS FASTINGP ERFORMED BY: CHRIS Bateslin6[address]ublin [place] [id number] Microscopic observation LM Nom (Urine sed) MICRON Normal [facility] Work Phone: Comment on above: Microscopic follows if indicated. PATIENT WAS FASTINGP ERFORMED BY: CHRIS Bateslin6[address]bl[address] [place] [id number] Nitrite Ql (U) Negative Normal Comprehens domingo Internal Medicine Work Phone: Comment on above: PATIENT WAS FASTINGP ERFORMED BY: CHRIS Sanchez6[address] RoadDuin [place] [id number] Nitrite Ql (U) Negative Normal Comprehens domingo Internal Medicine; [facility] Work Phone: Comment on above: PATIENT WAS FASTINGP ERFORMED BY: CHRIS Bateslin[address] [facility]in [place] [id number] Nitrite Test strip Ql (U) Negative Normal [facility] Work Phone: pH (U) 7.0 [pH] Normal 5.0-7.5 [facility] Work Phone: Comment on above: PATIENT WAS FASTINGP ERFORMED BY: CHRIS Sanchez6[address] RoadCatawba Valley Medical Centerin [place] [id number] pH Test strip (U) 7.0 [pH] Normal 5.0-7.5 Compreh ensive Internal Medicine Work Phone: Protein Ql (U) Negative Normal Comprehens domingo Internal Medicine Work Phone: Comment on above: PATIENT WAS FASTINGP ERFORMED BY: CHRIS Bateslin6[address]Dublin [place] [id number] Protein Ql (U) Negative Normal Comprehens dominog Internal Medicine; [facility] Work Phone: Comment on above: PATIENT WAS FASTINGP ERFORMED BY: CHRIS Caceres Xckdsj1064 Gamez RoadC[facility] [id number] Protein Test strip Ql (U) Negative Normal [facility] Work Phone: Specific gravity Relative Density (U) 1.014 1 Normal 1.005-1.03 0 [facility] Work Phone: Comment on above: PATIENT WAS FASTINGP ERFORMED BY: [employer] Qicmpz6286 GamezBrightLineAtrium Health Mercy [id number] Urobilinogen (U) [Mass/Vol] 0.2 mg/dL Normal 0.0-1.9 [facility]; [facility] Work Phone: Comment on above: PATIENT WAS FASTINGP ERFORMED BY: [employer]6370 Ario PharmaAtrium Health Mercy [id number] Urobilinogen Test strip mass conc (U) 0.2 mg/dL Normal 0.0-1.9 Comprehensiv e Internal Medicine Work Phone: Comment on above: PATIENT WAS FASTINGP ERFORMED BY: [employer] LvmaeCone Health [facility] Hospital [id number] Blood Glucose , Office ([phone])Ordered By: ARIEL Bradshaw on 01-22-2014 Glucose Glucometer molar conc (BldC) 100 1 Normal [facility] Work Phone: Comment on above: non fasting HgA1C , Office ([phone])Ordere d By: Elysia Barnard on 01-22-2014 Hemoglobin A1c/Hemoglobin.total mass fraction (Bld) 5.3 % Normal 4.6 - 7.1 Comprehensiv e Internal Medicine Work Phone: Blood Glucose , Office ([phone])Ordered By: Juan Carlos Barron on 02-07-2013 Glucose Glucometer molar conc (BldC) 87 1 Normal [facility] Work Phone: CBC WITH MANUAL DIFF ([id number]) Ordered By: Bus Girl on 02-07-2013 Basophils #/vol (Bld) 0.0 {x10E3/uL} Normal 0.0-0.2 [facility] Work Phone: Comment on above: PATIENT WAS FASTINGP ERFORMED BY: [facility]6370 [facility] [id number] Information: [id number] Basophils (Bld) [#/Vol] 0.0 10*3/uL Normal 0.0-0.2 [facility]; [facility] Work Phone: Comment on above: PATIENT WAS FASTINGP ERFORMED BY: [address] [id number] Information: [id number] Basophils Auto #/vol (Bld) 0.0 {x10E3/uL} Normal 0.0-0.2 [facility] Work Phone: Basophils/100 WBC (Bld) 1 % Normal 0-3 [facility] Work Phone: Comment on above: PATIENT WAS FASTINGP ERFORMED BY: [address] [id number] Information: [id number] Basophils/100 WBC Auto (Bld) 1 % Normal 0-3 [facility] Work Phone: Eosinophils #/vol (Bld) 0.2 {x10E3/uL} Normal 0.0-0.4 [facility] Work Phone: Comment on above: PATIENT WAS FASTINGP ERFORMED BY: [address] [id number] Information: [id number] Eosinophils (Bld) [#/Vol] 0.2 10*3/uL Normal 0.0-0.4 [facility]; [facility] Work Phone: Comment on above: PATIENT WAS FASTINGP ERFORMED BY: [address] [id number] Information: [id number] Eosinophils Auto #/vol (Bld) 0.2 {x10E3/uL} Normal 0.0-0.4 [facility] Work Phone: Eosinophils/100 WBC (Bld) 2 % Normal 0-7 [facility] Work Phone: Comment on above: PATIENT WAS FASTINGP ERFORMED BY: CHRIS [place] [id number] [facility] [id number] Information: [id number] Eosinophils/100 WBC Auto (Bld) 2 % Normal 0-7 [facility] Work Phone: Erythrocyte distribution width Auto Ratio (RBC) 15.4 % Normal 12.3-15.4 [facility] Work Phone: Erythrocyte distribution width Ratio (RBC) 15.4 % Normal 12.3-15.4 [facility] Work Phone: Comment on above: PATIENT WAS FASTINGP ERFORMED BY: CHRIS [address] [id number] Information: [id number] Hematocrit Auto Volume Fraction (Bld) 44.1 % Normal 34.0-46.6 [facility] Internal Medicine Work Phone: Hematocrit Volume Fraction (Bld) 44.1 % Normal 34.0-46.6 [facility] Internal Medicine Work Phone: Comment on above: PATIENT WAS FASTINGP ERFORMED BY: CHRIS [address] [id number] Information: [id number] Hemoglobin mass conc (Bld) 14.9 g/dL Normal 11.1-15.9 [facility] Work Phone: Comment on above: PATIENT WAS FASTINGP ERFORMED BY: [address] [id number] Information: [id number] Immature granulocytes #/vol (Bld) 0.0 {x10E3/uL} Normal 0.0-0.1 [facility] Work Phone: Comment on above: PATIENT WAS FASTINGP ERFORMED BY: [address] [id number] Information: [id number] Immature granulocytes (Bld) [#/Vol] 0.0 10*3/uL Normal 0.0-0.1 [facility]; [facility] Work Phone: Comment on above: PATIENT WAS FASTINGP ERFORMED BY: [place] [address]196070 [facility] [id number] Information: [id number] Immature granulocytes/100 WBC (Bld) 0 % Normal 0-2 [facility] Work Phone: Comment on above: PATIENT WAS FASTINGP ERFORMED BY: [address] [id number] Information: [id number] Lymphocytes #/vol (Bld) 2.0 {x10E3/uL} Normal 0.7-4.5 [facility] Work Phone: Comment on above: PATIENT WAS FASTINGP ERFORMED BY: [address] [id number] Information: [id number] Lymphocytes (Bld) [#/Vol] 2.0 10*3/uL Normal 0.7-4.5 [facility]; [facility] Work Phone: Comment on above: PATIENT WAS FASTINGP ERFORMED BY: [address] [id number] Information: [id number] Lymphocytes Auto #/vol (Bld) 2.0 {x10E3/uL} Normal 0.7-4.5 [facility] Work Phone: Lymphocytes/100 WBC (Bld) 28 % Normal 14-46 [facility] Work Phone: Comment on above: PATIENT WAS FASTINGP ERFORMED BY: [address] [id number] Information: [id number] Lymphocytes/100 WBC Auto (Bld) 28 % Normal 14-46 [facility] Work Phone: MCH Auto Entitic mass (RBC) 28.2 pg Normal 26.6-33.0 [facility] Work Phone: MCH Entitic mass (RBC) 28.2 pg Normal 26.6-33.0 [facility] Work Phone: Comment on above: PATIENT WAS FASTINGP ERFORMED BY: [place] 6196070 [facility] [id number] Information: [id number] MCHC Auto mass conc (RBC) 33.8 g/dL Normal 31.5-35.7 [facility] Work Phone: MCHC mass conc (RBC) 33.8 g/dL Normal 31.5-35.7 Comp [facility] Internal Medicine Work Phone: Comment on above: PATIENT WAS FASTINGP ERFORMED BY: [address] [id number] Information: [id number] MCV Auto Entitic volume (RBC) 83 fL Normal 79-97 [facility] Work Phone: MCV Entitic volume (RBC) 83 fL Normal 79-97 [facility] Work Phone: Comment on above: PATIENT WAS FASTINGP ERFORMED BY: [address] [id number] Information: [id number] Monocytes #/vol (Bld) 0.6 {x10E3/uL} Normal 0.1-1.0 [facility] Work Phone: Comment on above: PATIENT WAS FASTINGP ERFORMED BY: [place] 6196070 [facility] [id number] Information: [id number] Monocytes (Bld) [#/Vol] 0.6 10*3/uL Normal 0.1-1.0 [facility]; [facility] Work Phone: Comment on above: PATIENT WAS FASTINGP ERFORMED BY: [place] 6196070 [facility] [id number] Information: [id number] Monocytes Auto #/vol (Bld) 0.6 {x10E3/uL} Normal 0.1-1.0 [facility] Work Phone: Monocytes/100 WBC (Bld) 9 % Normal 4- [facility] Work Phone: Comment on above: PATIENT WAS FASTINGP ERFORMED BY: CHRIS [place] [id number] [facility] [id number] Information: [id number] Monocytes/100 WBC Auto (Bld) 9 % Normal - [facility] Work Phone: Neutrophils #/vol (Bld) 4.2 {x10E3/uL} Normal 1.8-7.8 [facility] Work Phone: Comment on above: PATIENT WAS FASTINGP ERFORMED BY: CHRIS [facility] Yjiidh4062 [facility] [id number] Information: [id number] Neutrophils (Bld) [#/Vol] 4.2 10*3/uL Normal 1.8-7.8 [facility]; [facility] Work Phone: Comment on above: PATIENT WAS FASTINGP ERFORMED BY: CHRIS [facility] Vrgxiw0413 [facility] [id number] Information: [id number] Neutrophils Auto #/vol (Bld) 4.2 {x10E3/uL} Normal 1.8-7.8 [facility] Work Phone: Neutrophils/100 WBC (Bld) 60 % Normal 40-74 [facility] Work Phone: Comment on above: PATIENT WAS FASTINGP ERFORMED BY: [place] 6196070 [facility] [id number] Information: [id number] Neutrophils/100 WBC Auto (Bld) 60 % Normal 40-74 [facility] Work Phone: Platelets #/vol (Bld) 302 {x10E3/uL} Normal 140-415 [facility] Work Phone: Comment on above: PATIENT WAS FASTINGP ERFORMED BY: [place] 6196070 [facility] [id number] Information: [id number] Platelets (Bld) [#/Vol] 302 10*3/uL Normal 140-415 [facility]; [facility] Internal Medicine Work Phone: Comment on above: PATIENT WAS FASTINGP ERFORMED BY: [address] [id number] Information: [id number] Platelets Auto #/vol (Bld) 302 {x10E3/uL} Normal 140-415 [facility] Work Phone: RBC #/vol (Bld) 5.29 {x10E6/uL} Abnormal 3.77-5.28 [facility] Work Phone: Comment on above: PATIENT WAS FASTINGP ERFORMED BY: [address] [id number] Information: [id number] RBC (Bld) [#/Vol] 5.29 10*6/uL Abnormal 3.77-5.28 [facility] Centerensive Internal [facility]; [facility] Work Phone: Comment on above: PATIENT WAS FASTINGP ERFORMED BY: [facility]6370 [facility] [id number] Information: [id number] RBC Auto #/vol (Bld) 5.29 {x10E6/uL} Abnormal 3.77-5.28 [facility] Work Phone: WBC #/vol (Bld) 7.0 {x10E3/uL} Normal 4.0-10.5 [facility] Internal Medicine Work Phone: Comment on above: PATIENT WAS FASTINGP ERFORMED BY: [facility]6370 [facility] [id number] Information: [id number] WBC (Bld) [#/Vol] 7.0 10*3/uL Normal 4.0-10.5 Compre [facility]; [facility] Work Phone: Comment on above: PATIENT WAS FASTINGP ERFORMED BY: CHRIS ToritoGuerrero BatesGpfqwj3358 [address] [facility]in [place] [id number] Information: [id number] WBC Auto #/vol (Bld) 7.0 {x10E3/uL} Normal 4.0-10.5 [facility] Work Phone: LIPID PANEL ([id number])Ordered B y: Bus Girl on 02-07-2013 Cholesterol in HDL mass conc 46 mg/dL Normal [facility] Work Phone: Comment on above: According to ATP-III Guidelines, HDL-C >59 mg/dL is considered anegative risk factor for CHD. PATIENT WAS FASTINGP ERFORMED BY: CHRIS LabGuerrero BatesNsrxjs4980 [address] LvmaeC[facility] [id number] Cholesterol in LDL mass conc 160 mg/dL Abnormal 0-99 [facility] Work Phone: Comment on above: PATIENT WAS FASTINGP ERFORMED BY: CHRIS LabCotrudi Zmyhjx0961 [address] [facility] [place] [id number] Cholesterol in LDL/Cholesterol in HDL mass ratio 3.5 {ratio_units} Abnormal 0.0-3.2 [facility] Work Phone: Comment on above: PATIENT WAS FASTINGP ERFORMED BY: CHRIS LabGuerrero Nztpdu3833 [address] [facility] [place] [id number] Cholesterol in VLDL mass conc 39 mg/dL Normal 5-40 [facility] Work Phone: Comment on above: PATIENT WAS FASTINGP ERFORMED BY: CHRIS [facility] Adfhwa7503 [address] [facility] HospitalDublin [place] [id number] Cholesterol mass conc 245 mg/dL Abnormal 100-199 [facility] prehensive Internal Medicine Work Phone: Comment on above: PATIENT WAS FASTINGP ERFORMED BY: CHRIS [facility] Jgkwar6559 [address] [facility] Hospitalbl[facility] [place] [id number] Triglyceride mass conc 196 mg/dL Abnormal 0-149 [facility] Work Phone: Comment on above: PATIENT WAS FASTINGP ERFORMED BY: CB [facility] Aygnwe8795 [address] RoadDublin [place] [id number] METABOLIC PANEL, COMPREHENSI VE ([id number])Ordered By: Bus Girl on 02-07-2013 Albumin mass conc 4.5 g/dL Normal 3.5-5.5 Compreh [facility] Internal Medicine Work Phone: Comment on above: PATIENT WAS FASTINGP ERFORMED BY: CB [facility] Ermlxe6880 [address] RoadDublin [place] [id number] Albumin/Globulin mass ratio 1.5 {ratio} Normal 1.1-2.5 [facility] Work Phone: Comment on above: PATIENT WAS FASTINGP ERFORMED BY: CB [facility] Yywdjm0035 [address] RoadDublin [place] [id number] ALP [Catalytic activity/Vol] 71 U/L Normal 25-150 [facility]; [facility] Internal Medicine Work Phone: Comment on above: PATIENT WAS FASTINGP ERFORMED BY: CB [facility] Cexmtv0463 [address] RoadDublin [place] [id number] ALP enzyme act/vol 71 [iU]/L Normal 25-150 [facility] Internal Medicine Work Phone: Comment on above: PATIENT WAS FASTINGP ERFORMED BY: CB [facility] Tiesve6447 [address] RoadDublin [place] [id number] ALT [Catalytic activity/Vol] 25 U/L Normal 0-32 [facility]; [facility] Internal Medicine Work Phone: Comment on above: PATIENT WAS FASTINGP ERFORMED BY: CB [facility] Kkxilk4640 [address] RoadDublin [place] [id number] ALT enzyme act/vol 25 [iU]/L Normal 0-32 [facility] Internal Medicine Work Phone: Comment on above: PATIENT WAS FASTINGP ERFORMED BY: CB [facility] Bcrlhy8566 [address] RoadDublin [place] [id number] AST [Catalytic activity/Vol] 13 U/L Normal 0-40 [facility]; [facility] Internal Medicine Work Phone: Comment on above: PATIENT WAS FASTINGP ERFORMED BY: CHRIS [facility] Cbpcbr2542 [address] RoadDublin [place] [id number] AST enzyme act/vol 13 [iU]/L Normal 0-40 Compre [facility] Internal Medicine Work Phone: Comment on above: PATIENT WAS FASTINGP ERFORMED BY: CHRIS [facility] Nprfvz9065 [address] RoadDublin [place] [id number] Bilirubin mass conc 0.5 mg/dL Normal 0.0-1.2 Compr ensive Internal Medicine Work Phone: Comment on above: PATIENT WAS FASTINGP ERFORMED BY: CHRIS [facility] Xeloru5095 [address] RoadDublin [place] [id number] Calcium mass conc 9.7 mg/dL Normal 8.7-10.2 Compreh [facility] Internal Medicine Work Phone: Comment on above: PATIENT WAS FASTINGP ERFORMED BY: CHRIS [facility] Nxisnu2974 [address] RoadDublin [place] [id number] Chloride molar conc 99 mmol/L Normal 97-108 Compr ensive Internal Medicine Work Phone: Comment on above: PATIENT WAS FASTINGP ERFORMED BY: CHRIS [facility] Vxuknq7826 [address] RoadDublin [place] [id number] CO2 molar conc 22 mmol/L Normal 20-32 Comprehens domingo Internal Medicine Work Phone: Comment on above: Effective February 10, 2013, the reference interval for Carbon Dioxide, Total will be changing to: 0 - 7 days 18 - 28 8 - 30 days 17 - 27 31 d - 5 months 15 - 26 6 m - up to 1 year 15 - 25 1 - 12 years 17 - 26 > 12 years 19 - PATIENT WAS FASTINGP ERFORMED BY: CB [facility] Iiccuk7332 [address] RoadDublin [place] [id number] Creatinine mass conc 0.49 mg/dL Abnormal 0.57-1.00 Comp [facility] Internal [facility] Work Phone: Comment on above: PATIENT WAS FASTINGP ERFORMED BY: CB [facility] Flksef5313 [address] RoadDublin [place] [id number] GFR/1.73 sq M predicted among blacks CKD-EPI vol rate/area (S/P/Bld) 126 mL/min/1.73 Normal Comprehensiv e Internal Medicine Work Phone: Comment on above: PATIENT WAS FASTINGP ERFORMED BY: CB [facility] Qvrjik8410 [address] Roadblin [place] [id number] GFR/1.73 sq M predicted among non-blacks CKD-EPI vol rate/area (S/P/Bld) 109 mL/min/1.73 Normal [facility] Work Phone: Comment on above: PATIENT WAS FASTINGP ERFORMED BY: CB [facility] Yikerv2090 [facility] [id number] Globulin Calculated mass conc (S) 3.1 g/dL Normal 1.5-4.5 [facility] Work Phone: Globulin mass conc (S) 3.1 g/dL Normal 1.5-4.5 [facility] Work Phone: Comment on above: PATIENT WAS FASTINGP ERFORMED BY: CB [facility] Xltjxm3535 [facility] [id number] Glucose mass conc 90 mg/dL Normal 65-99 Compreh ensive Internal Medicine Work Phone: Comment on above: PATIENT WAS FASTINGP ERFORMED BY: [facility] Xyfdxd1369 [facility] [id number] Potassium molar conc 3.8 mmol/L Normal 3.5-5.2 Comp rehensive Internal Medicine Work Phone: Comment on above: PATIENT WAS FASTINGP ERFORMED BY: CB [facility] Zotuve2997 [facility] [id number] Protein mass conc 7.6 g/dL Normal 6.0-8.5 Compreh ensive Internal Medicine Work Phone: Comment on above: PATIENT WAS FASTINGP ERFORMED BY: CB [facility] Idsoqd6490 Agmez [facility] [id number] Sodium molar conc 139 mmol/L Normal 134-144 Compreh ensive [facility] Medicine Work Phone: Comment on above: PATIENT WAS FASTINGP ERFORMED BY: CHRIS [facility] Ugekfj4628 [facility] [place] [id number] Urea nitrogen mass conc 11 mg/dL Normal 6-24 [facility] Work Phone: Comment on above: PATIENT WAS FASTINGP ERFORMED BY: CHRIS [facility] Mtpyro0924 [facility] [id number] Urea nitrogen/Creatinine mass ratio 22 mg/mg Normal 9- [facility] Work Phone: Comment on above: PATIENT WAS FASTINGP ERFORMED BY: [facility]6370 [facility] [id number] MICROALBUMINOrdered By: Syst em Manager State on 02-07-2013 Albumin DL <= 20 mg/L mass conc (U) 26.9 ug/mL Abnormal 0.0-17.0 [facility] Work Phone: Comment on above: PATIENT WAS FASTINGP ERFORMED BY: [facility]6370 [facility] [id number] Albumin/Creatinine mass ratio (U) 82.8 {mg/g_creat} Abnormal 0.0-30.0 [facility] Work Phone: Comment on above: PATIENT WAS FASTINGP ERFORMED BY: [facility] Pxswoi8631 [facility] [id number] Creatinine mass conc (U) 32.5 mg/dL Normal 15.0-278.0 [facility] Work Phone: Comment on above: PATIENT WAS FASTINGP ERFORMED BY: [facility] Tcehfd9126 [facility] [id number] LIPID PANEL ([id number])Ordered B y: Bus Girl on 07-11-2012 Cholesterol in HDL mass conc 52 mg/dL Normal [facility] Work Phone: Comment on above: According to ATP-III Guidelines, HDL-C >59 mg/dL is considered anegative risk factor for CHD. today; PATIENT WAS F ASTINGPERFORMED BY: [facility] Ifggbe9600 [facility] [id number] Information: [id number] Cholesterol in LDL mass conc 153 mg/dL Abnormal 0-99 [facility] Work Phone: Comment on above: today; PATIENT WAS F ASTINGPERFORMED BY: CHRIS [facility] Mlunuh1448 [facility] [id number] Information: [id number] Cholesterol in LDL/Cholesterol in HDL mass ratio 2.9 {ratio_units} Normal 0.0-3.2 [facility] Work Phone: Comment on above: today; PATIENT WAS F ASTINGPERFORMED BY: CB [facility] Jbremo1352 Game[facility] [id number] Information: [id number] Cholesterol in VLDL mass conc 37 mg/dL Normal 5-40 [facility] Work Phone: Comment on above: today; PATIENT WAS F ASTINGPERFORMED BY: CB [facility] Fwgqtp8999 [facility] [id number] Information: [id number] Cholesterol mass conc 242 mg/dL Abnormal 100-199 [facility] prehensive Internal Medicine Work Phone: Comment on above: today; PATIENT WAS F ASTINGPERFORMED BY: CB [facility] Bspfbj7103 [facility] [id number] Information: [id number] Triglyceride mass conc 186 mg/dL Abnormal 0-149 [facility] Work Phone: Comment on above: today; PATIENT WAS F ASTINGPERFORMED BY: [facility] Mmcknr1109 [facility] [id number] Information: [id number] Blood Glucose , Office ([phone])Ordered By: ARIEL Bradshaw on 06-13-2012 Glucose Glucometer molar conc (BldC) 100 1 Normal [facility] Work Phone: HgA1C , Office ([phone])Ordere d By: ARIEL Bradshaw on 06-13-2012 Hemoglobin A1c/Hemoglobin.total mass fraction (Bld) 5.7 % Normal 4.6 - 7.1 Comprehensiv e [facility] Work Phone: METABOLIC PANEL, COMPREHENSI VE ([phone])Ordered By: Bus Girl on 06-13-2012 Albumin mass conc 4.5 g/dL Normal 3.5-5.5 Compreh ensive [facility] Work Phone: Comment on above: today; PATIENT NOT F ASTINGPERFORMED BY: CB [facility] Kliyyp0878 [address] RoadDublin [place] [id number] Information: [id number] Albumin/Globulin mass ratio 1.5 {ratio} Normal 1.1-2.5 [facility] Work Phone: Comment on above: today; PATIENT NOT F ASTINGPERFORMED BY: CB [facility] Pniptr1028 [address] RoadDublin [place] [id number] Information: [id number] ALP [Catalytic activity/Vol] 68 U/L Normal 25-150 [facility]; [facility] Work Phone: Comment on above: today; PATIENT NOT F ASTINGPERFORMED BY: CB [facility] Xejqum7903 [address] RoadDublin [place] [id number] Information: [id number] ALP enzyme act/vol 68 [iU]/L Normal 25-150 [facility] Work Phone: Comment on above: today; PATIENT NOT F ASTINGPERFORMED BY: CB [facility] Pgrjjp6807 [address] RoadDublin [place] [id number] Information: [id number] ALT [Catalytic activity/Vol] 23 U/L Normal 0-40 [facility]; [facility] Work Phone: Comment on above: Effective June 24, 2012 the reference interval for ALT (SGPT) will be changing to: Male Female 0 - 11 years 0 - 29 0 - 28 12 - 17 years 0 - 30 0 - 24 > 17 years 0 - 44 0 - 32 today; PATIENT NOT F ASTINGPERFORMED BY: CB [facility] Ljyvdu9427 [address] RoadDublin [place] [id number] Information: [id number] ALT enzyme act/vol 23 [iU]/L Normal 0-40 [facility] Internal Medicine Work Phone: Comment on above: Effective June 24, 2012 the reference interval for ALT (SGPT) will be changing to: Male Female 0 - 11 years 0 - 29 0 - 28 12 - 17 years 0 - 30 0 - 24 > 17 years 0 - 44 0 - 32 today; PATIENT NOT F ASTINGPERFORMED BY: CB [facility] Lgdmqb4630 [address] RoadDublin [place] [id number] Information: [id number] AST [Catalytic activity/Vol] 17 U/L Normal 0-40 [facility]; [facility] Work Phone: Comment on above: today; PATIENT NOT F ASTINGPERFORMED BY: CB [facility] Rkpyjt7788 [address] RoadDublin [place] [id number] Information: [id number] AST enzyme act/vol 17 [iU]/L Normal 0-40 [facility] Internal Medicine Work Phone: Comment on above: today; PATIENT NOT F ASTINGPERFORMED BY: CB [facility] Uoqdtj4110 [address] RoadCatawba [facility] Centerin [place] [id number] Information: [id number] Bilirubin mass conc 0.5 mg/dL Normal 0.0-1.2 [facility] Internal Medicine Work Phone: Comment on above: today; PATIENT NOT F ASTINGPERFORMED BY: CB [facility] Rfuxhx1680 [address] RoadCatawba Valley Medical Centerin [place] [id number] Information: [id number] Calcium mass conc 9.8 mg/dL Normal 8.7-10.2 [facility] Internal [facility] Work Phone: Comment on above: today; PATIENT NOT F ASTINGPERFORMED BY: CB [facility] Ybdvgz7884 [address] RoadDublin [place] [id number] Information: [id number] Chloride molar conc 100 mmol/L Normal 97-108 [facility] Internal [facility] Work Phone: Comment on above: today; PATIENT NOT F ASTINGPERFORMED BY: CB [facility] Ufjqwj2803 [address] RoadCatawba Valley Medical Centerin [place] [id number] Information: [id number] CO2 molar conc 24 mmol/L Normal 20-32 Comprehens domingo Internal Medicine Work Phone: Comment on above: today; PATIENT NOT F ASTINGPERFORMED BY: CB [facility] Tatenr4973 [address] RoadC[facility] [id number] Information: [id number] Creatinine mass conc 0.51 mg/dL Abnormal 0.57-1.00 Comp rehensive Internal Medicine Work Phone: Comment on above: today; PATIENT NOT F ASTINGPERFORMED BY: CB [facility] Nerayp3866 [address] [facility] [id number] Information: [id number] GFR/1.73 sq M predicted among blacks CKD-EPI vol rate/area (S/P/Bld) 125 mL/min/1.73 Normal Comprehensiv e Internal Medicine Work Phone: Comment on above: today; PATIENT NOT F ASTINGPERFORMED BY: CB [facility] Weysfi6624 [address] [facility] [id number] Information: [id number],[id number] GFR/1.73 sq M predicted among non-blacks CKD-EPI vol rate/area (S/P/Bld) 109 mL/min/1.73 Normal [facility] Work Phone: Comment on above: today; PATIENT NOT F ASTINGPERFORMED BY: CB [facility] Bpbcwo5871 [address] [facility] [id number] Information: [id number] Globulin Calculated mass conc (S) 3.0 g/dL Normal 1.5-4.5 [facility] Work Phone: Globulin mass conc (S) 3.0 g/dL Normal 1.5-4.5 [facility] Work Phone: Comment on above: today; PATIENT NOT F ASTINGPERFORMED BY: CB [facility] Bjrnwf7277 [address] RoadDublin [place] [id number] Information: [id number] Glucose mass conc 88 mg/dL Normal 65-99 Compreh ensive Internal Medicine Work Phone: Comment on above: today; PATIENT NOT F ASTINGPERFORMED BY: CB [facility] Juakno1539 [address] RoadDublin [place] [id number] Information: [id number] Potassium molar conc 4.2 mmol/L Normal 3.5-5.2 Comp rehensive Internal Medicine Work Phone: Comment on above: today; PATIENT NOT F ASTINGPERFORMED BY: CB [facility] Fuukzy4056 [address] RoadDublin [place] [id number] Information: [id number] Protein mass conc 7.5 g/dL Normal 6.0-8.5 Compreh ensive Internal Medicine Work Phone: Comment on above: today; PATIENT NOT F ASTINGPERFORMED BY: CB [facility] Olkuyk7230 [address] RoadDublin [place] [id number] Information: [id number] Sodium molar conc 141 mmol/L Normal 134-144 Compreh ensive Internal Medicine Work Phone: Comment on above: today; PATIENT NOT F ASTINGPERFORMED BY: CB [facility] Iwlene2500 [address] RoadDublin [place] [id number] Information: [id number] Urea nitrogen mass conc 11 mg/dL Normal 6-24 [facility] Work Phone: Comment on above: today; PATIENT NOT F ASTINGPERFORMED BY: CB [facility] Wglngb6316 [address] RoadDublin [place] [id number] Information: [id number] Urea nitrogen/Creatinine mass ratio 22 mg/mg Normal 9-23 [facility] Work Phone: Comment on above: today; PATIENT NOT F ASTINGPERFORMED BY: CB [facility] Rvxoze1248 [address] RoadDublin [place] [id number] Information: [id number] Blood Glucose , Office ([phone])Ordered By: ARIEL Bradshaw on 02-19-2012 Glucose Glucometer molar conc (BldC) 103 1 Normal [facility] Work Phone: HgA1C , Office ([phone])Ordere d By: Adolfo Osborn on 02-19-2012 Hemoglobin A1c/Hemoglobin.total mass fraction (Bld) 5.5 % Normal 4.6 - 7.1 Comprehensiv e Internal Medicine Work Phone: CHEST, PA AND LATERALOrdered By: Bus Girl on 02-14-2012 CHEST, PA AND LATERAL See Note Normal Com prehensive Internal Medicine Work Phone: Comment on above: PROCEDURE: X-RAY DREW ST REASON FOR EXAM: Female, 56 years old. Pneumonia TECHNIQUE: PA and lateral views of the chest February 14, 2012 COMPARISON: PA and lateral views of the chest January 23, 2012 FINDINGS: The lungs are clear without focal consolidation or pleural effusion.Thereis redemonstration of minor scarring along the lingula. There is nodemonstrated pleural abnormality. Normal heart and pericardium. Normal mediastinum and phoebe. Normal visualized pulmonary arteries.Normalvisualized aortic arch and descending thoracic aorta. Normal visualized thoracic spine. Normal visualized ribs, clavicles, andshoulders. There is no demonstrated abnormality of the visualized soft tissuestructures of the upper abdomen. IMPRESSION:No acute cardiopulmonary disease (stable appearing chest). Signed:Saud Melchor M.D.February 15, 2012 at 1:38:03 AM [phone] Signed SM/SM If you are the referring physician and would like to consult with theradiologist who provided this interpretation, please contact Fer Sotelo at . If this radiologist is unavailable, youwill be directed to another radiologist to assist. If you are a patient with a question regarding this report, pleasecontactyour referring physician directly. Professional Interpretation Provided By: [place], Phone , Dictated on 02/14/12 1429 by Jlil ORAT [facility] Hospitalranscribed on 02/15/12 1330 by ITS IMPORTSign by Jill ORTA, Supratik on 02/15/12 1331 Sign by: Jill ORTA, Saud; ADDENDA: pt has apt next week. CMPOrdered By: System Manage r on 02-14-2012 Albumin mass conc 4.0 g/dL Normal 3.4-5.0 Compreh [facility] Work Phone: Albumin/Globulin mass ratio 0.9 {RATIO} Normal 0.9-2.4 [facility] Internal Medicine Work Phone: ALP enzyme act/vol 62 U/L Normal 50-136 [facility] Internal Medicine Work Phone: ALT enzyme act/vol 39 U/L Normal 12-78 [facility] Internal Medicine Work Phone: Anion gap 3 molar conc 9 mmol/L Normal 5-15 [facility] Internal Medicine Work Phone: Anion gap molar conc 9 mmol/L Normal 5-15 [facility] Work Phone: AST enzyme act/vol 20 U/L Normal 15-37 [facility] Internal Medicine Work Phone: Bilirubin mass conc 0.50 mg/dL Normal 0.00-1.00 [facility]pr [facility] Internal [facility] Work Phone: Calcium mass conc 9.1 mg/dL Normal 8.5-10.[address] [facility] Internal Medicine Work Phone: Chloride molar conc 103 mmol/L Normal 98-107 [facility] Internal Medicine Work Phone: CO2 molar conc 27.0 mmol/L Normal 21.0-32.0 [facility] Work Phone: Creatinine mass conc 0.6 mg/dL Normal 0.6-1.0 [facility] Work Phone: GFR/1.73 sq M predicted among blacks MDRD vol rate/area (S/P/Bld) 133 mL/min/{1.73_m2} Normal Compreh [facility] Work Phone: GFR/1.73 sq M.predicted MDRD vol rate/area 110 mL/min/{1.73_m2} Normal Comprehensi ve Internal Medicine Work Phone: Globulin Calculated mass conc (S) 4.3 g/dL Abnormal 2.7-4.2 [facility] Work Phone: Globulin mass conc (S) 4.3 g/dL Abnormal 2.7-4.2 [facility] Work Phone: Glucose mass conc 99 mg/dL Normal 70-110 Compreh ensive Internal Medicine Work Phone: Potassium molar conc 3.7 mmol/L Normal 3.5-5.1 Comp rehensive Internal Medicine Work Phone: Protein mass conc 8.3 g/dL Abnormal 6.4-8.2 Compreh ensive Internal Medicine Work Phone: Sodium molar conc 139 mmol/L Normal 136-145 Compreh ensive Internal Medicine Work Phone: Urea nitrogen mass conc 10 mg/dL Normal 7-18 [facility] Work Phone: Urea nitrogen/Creatinine mass ratio 16.7 {RATIO} Normal 10-20 [facility] Work Phone: LIPIDOrdered By: Wilian george on 02-14-2012 Cholesterol in HDL mass conc 47 mg/dL Normal [facility] Work Phone: Comment on above: Reference Range HDL <40 mg/dL Low HDL Cholesterol HDL >or= 60 mg/dL High HDL Cholesterol f/u 02/19/12 Cholesterol in LDL mass conc 126 mg/dL Normal 0-130 [facility] Work Phone: Comment on above: f/u // Cholesterol in VLDL mass conc 50 mg/dL Abnormal 5-40 [facility] Work Phone: Comment on above: f/u 6//12 Cholesterol mass conc 223 mg/dL Abnormal Com prehensive Internal Medicine Work Phone: Comment on above: <200 mg/dL Desirable 200-240 mg/dL Borderline >240 mg/dL High Risk f/u 6/25/12 Triglyceride mass conc 248 mg/dL Abnormal [facility] Work Phone: Comment on above: Serum Triglycerides Reference Interval Normal <150 mg/dL Borderline high 150 - 199 mg/dL High 200 - 499 mg/dL Very High > or = 500 mg/dL f/u 02/19/12 MIACREOrdered By: System Man ager on 02-14-2012 Creatinine mass conc 96.1 {mg/g_CRE} Abnormal [facility] Work Phone: MIACRE 86.8 mg/L Normal [facility] Work Phone: MIACRE 90.3 mg/dL Normal [facility] Work Phone: CHEST WITH CONTRASTOrdered B y: Bus Girl on 02-02-2012 CHEST WITH CONTRAST See Note Normal Compr ehensive Internal Medicine Work Phone: Comment on above: PROCEDURE: CT CHEST WITH CONTRAST REASON FOR EXAM: Female, 56 years old. Shortness of breath onexertion. TECHNIQUE: High resolution transaxial imaging was performed followingintravenous administration of 100CC ml of Isovue 370 contrast material.Multiplanar coronal and sagittal images were reformatted. COMPARISON: None. FINDINGS:There is a 1.6-cm well-defined, hypodense nodule in the inferior aspectofthe left lobe of the thyroid. A tiny hypodense nodule is also seen alongthe inferior and medial aspect of the right lobe. A focal patchy infiltrate is seen along the posterior medial segment oftheright lower lobe. There is no demonstrated pleural abnormality. There is moderate cardiac enlargement. Normal mediastinum. Normal hilar regions. There are no demonstratedpulmonary emboli. Normal enhanced thoracic aorta and visualized greatvessels. There are multi-level degenerative changes of the thoracic spine. There is limited visualization of the liver, spleen, pancreas, adrenalglands, and abdominal aorta without a demonstrated abnormality. IMPRESSION:Focal infiltrate in the posterior medial segment of the right lower lobe. Signed:Porter Garcias M.D.February 02, 2012 at 11:47:05 AM EDTElectronically Signed GP/GP Professional Interpretation Provided By: [facility] RadiologyPatient'[facility], , To consult with a radiologist regarding this report, please call our [id number] line @ Dictated on 02/02/12 1117 by Luisito Garcias MDribed on 02/02/12 1152 by ITS IMPORTSign by Porter Garcias MD on 02/02/12 1153 Sign by: Porter Garcias MD MYOCARD PERF STRESS/REST MUL TOrdered By: Bus Girl on 02-01-2012 MYOCARD PERF STRESS/REST MULT See Note Normal [facility] Work Phone: Comment on above: MYOCARDIAL PERFUSION SCAN TECHNIQUEThe patient was injected with 15 mCi of Tc99m Cardiolite and subsequentlyrest SPECT Cardiolite nuclear imaging was obtained in the horizontal long, vertical long and short axes views. The patient underwentpharmacologic (Regadenoson) evaluation with a peak heart rate of 96 beatsper minute (58% predicted maximum heart rate) with a peak blood pressureof 152/80 mmHg. The patient was injected with 45 mCi of Tc99m Cardioliteand subsequently stress SPECT Cardiolite nuclear imaging was obtained inthe horizontal long, vertical long and short axes views. GatedCardiolite study at peak stress was obtained. INTERPRETATIONRest and stress SPECT Cardiolite nuclear imaging demonstrate areas ofdiminished tracer uptake in portions of the basal to mid towards distalanterior, anteroseptal and anterior apical segments without significantchange. There are similar type findings on the resting and stress polarmap images. There is end systolic thickening and brightening. The gatedCardiolite study demonstrates myocardial thickening and inward wallmotion. The reported LVEF is 67%. The aforementioned findings appearcompatible with the effects of soft tissue/breast attenuation with nomyocardial perfusion changes considered diagnostic for stress inducedmyocardial ischemia or previous myocardial injury/infarction. IMPRESSION1. Rest and stress SPECT Cardiolite nuclear imaging demonstratemyocardial perfusion changes appearing compatible with the effects ofsoft tissue/breast attenuation with no myocardial perfusion changesconsidered diagnostic for stress induced myocardial ischemia or previousmyocardial injury/infarction.2. The gated Cardiolite study reports an LVEF of 67%. Dictated on 02/01/12927 by Bigg Ross MDTranscribed on 02/01/12 1039 by ABI GONZALEZign by Bigg Ross MD on 02/01/12 1659 Sign by: Bigg Ross MD HgA1C , Office ([id number])Ordere d By: Mary Nick on 11-21-2011 Hemoglobin A1c/Hemoglobin.total mass fraction (Bld) 5.4 % Normal 4.6 - 7.1 Comprehensiv e Internal Medicine Work Phone: CBCD,SMEAR DIFFOrdered By: Winter ystem Manager State on 01-04-2010 Eosinophils/100 WBC (Bld) 4 % Normal 0-5 [facility] Work Phone: Eosinophils/100 WBC Auto (Bld) 4 % Normal 0-5 [facility] Work Phone: Erythrocyte distribution width Auto Ratio (RBC) 14.7 % Abnormal 11.6-14.6 [facility] Work Phone: Erythrocyte distribution width Ratio (RBC) 14.7 % Abnormal 11.6-14.6 [facility] Work Phone: Hematocrit Auto Volume Fraction (Bld) 39.3 % Normal 37-47 Comprehens [place] Internal Medicine Work Phone: Hematocrit Volume Fraction (Bld) 39.3 % Normal 37-47 [facility] Work Phone: Hemoglobin mass conc (Bld) 13.3 g/dL Normal 12.0-16.0 [facility] Work Phone: Lymphocytes/100 WBC (Bld) 32 % Normal 19-41 [facility] Work Phone: Lymphocytes/100 WBC Auto (Bld) 32 % Normal 19-41 [facility] Work Phone: MCH Auto Entitic mass (RBC) 27.6 pg Normal 27.0-32.0 [facility] Work Phone: MCH Entitic mass (RBC) 27.6 pg Normal 27.0-32.0 [facility] Work Phone: MCHC Auto mass conc (RBC) 33.9 g/dL Normal 32-36 [facility] Work Phone: MCHC mass conc (RBC) 33.9 g/dL Normal 32-36 Comp rehensive Internal Medicine Work Phone: MCV Auto Entitic volume (RBC) 81.4 fL Normal 81-99 [facility] Work Phone: MCV Entitic volume (RBC) 81.4 fL Normal 81-99 [facility] Work Phone: Monocytes/100 WBC (Bld) 6 % Normal 0-10 [facility] Work Phone: Monocytes/100 WBC Auto (Bld) 6 % Normal 0-10 [facility] Work Phone: Neutrophils #/vol (Bld) 5.1 3/uL Normal 2.0-7.7 [facility] Work Phone: Neutrophils Auto #/vol (Bld) 5.1 3/uL Normal 2.0-7.7 [facility] Work Phone: Platelets #/vol (Bld) 359 10*3/uL Normal 150-450 Co mprehensive Internal Medicine Work Phone: Platelets #/vol (Bld) SeeNote Normal [facility] prehensive Internal Medicine Work Phone: Comment on above: Result: ADEQUATE Platelets Auto #/vol (Bld) 359 10*3/uL Normal 150-450 [facility] Work Phone: RBC #/vol (Bld) 4.83 {M/mm3} Normal 4.2-5.4 Compreh ensive Internal Medicine Work Phone: RBC Auto #/vol (Bld) 4.83 {M/mm3} Normal 4.2-5.4 Co mprehensive Internal Medicine Work Phone: WBC #/vol (Bld) 7.8 10*3/uL Normal 4.4-11.0 Comprehe nsive Internal Medicine Work Phone: WBC Auto #/vol (Bld) 7.8 10*3/uL Normal 4.4-11.0 Com prehensive Internal Medicine Work Phone: CBCD,SMEAR DIFF SeeNote Normal [facility] Internal Medicine Work Phone: Comment on above: Result: NORM C+C Result: ADEQUATE CBCD,SMEAR DIFF 100 1 Normal [facility] Internal Medicine Work Phone: CBCD,SMEAR DIFF 58 % Normal 47-70 [facility] Internal Medicine Work Phone: COMP METABOLICOrdered By: Kody stem Manager State on 01-04-2010 Albumin mass conc 3.9 g/dL Normal 3.4-5.0 [facility] [place] Internal Medicine Work Phone: Albumin/Globulin mass ratio 0.9 {RATIO} Normal 0.9-2.4 [facility] Internal Medicine Work Phone: ALP enzyme act/vol 76 U/L Normal 50-136 [facility] Internal Medicine Work Phone: ALT enzyme act/vol 36 U/L Normal 12-78 [facility] Internal Medicine Work Phone: Anion gap 3 molar conc 12 mmol/L Normal 5-15 [facility] Internal Medicine Work Phone: Anion gap molar conc 12 mmol/L Normal 5-15 [facility] Internal Medicine Work Phone: AST enzyme act/vol 9 U/L Abnormal 15-37 [facility] Internal Medicine Work Phone: Bilirubin mass conc 0.30 mg/dL Normal 0.00-1.00 [facility] [place] Internal Medicine Work Phone: Calcium mass conc 9.0 mg/dL Normal 8.5-10.1 [facility] [place] Internal Medicine Work Phone: Chloride molar conc 99 mmol/L Normal 98-107 [facility] [place] Internal Medicine Work Phone: CO2 molar conc 24.0 mmol/L Normal 21.0-32.0 [facility] Internal Medicine Work Phone: Creatinine mass conc 0.6 mg/dL Normal 0.6-1.0 [facility] Internal [facility] Work Phone: GFR/1.73 sq M predicted among blacks MDRD vol rate/area (S/P/Bld) 135 mL/min/{1.73_m2} Normal Compre[facility] Internal Medicine Work Phone: GFR/1.73 sq M.predicted MDRD vol rate/area 111 mL/min/{1.73_m2} Normal [facility] Internal Medicine Work Phone: Globulin Calculated mass conc (S) 4.2 g/dL Normal 2.7-4.2 [facility] Work Phone: Globulin mass conc (S) 4.2 g/dL Normal 2.7-4.2 [facility] Work Phone: Glucose mass conc 88 mg/dL Normal 70-110 [facility] Work Phone: Potassium molar conc 4.2 mmol/L Normal 3.5-5.1 Comp rehens[facility] Internal Medicine Work Phone: Protein mass conc 8.1 g/dL Normal 6.4-8.2 [facility] Work Phone: Sodium molar conc 135 mmol/L Abnormal 136-145 [facility] Work Phone: Urea nitrogen mass conc 15 mg/dL Normal 7-18 [facility] Work Phone: Urea nitrogen/Creatinine mass ratio 25.0 {RATIO} Abnormal 10-20 [facility] Work Phone: LIPIDOrdered By: Wilian george on 01-04-2010 Cholesterol in HDL mass conc 52 mg/dL Normal [facility] Work Phone: Comment on above: Reference RangeHDL < 40 mg/dL Low HDL CholesterolHDL >or= 60 mg/dL High HDL Cholesterol Cholesterol in LDL mass conc 99 mg/dL Normal 0-130 [facility] Work Phone: Cholesterol in VLDL mass conc 43 mg/dL Abnormal 5-40 [facility] Work Phone: Cholesterol mass conc 194 mg/dL Normal Com prehensive Internal Medicine Work Phone: Comment on above: <200 mg/dL Desirable 200-240 mg/dL Borderline>240 mg/dL High Risk Triglyceride mass conc 217 mg/dL Abnormal [facility] Work Phone: Comment on above: Serum Triglycerides Reference IntervalNormal <150 mg/dLBorderline high 150 - 199 mg/dLHigh 200 - 499 mg/dLVery High > or = 500 mg/dL MICROALBOrdered By: Wilian laird on 01-04-2010 Creatinine mass conc 64.8 {mg/g_CRE} Abnormal [facility] Work Phone: Creatinine mass conc 57.2 mg/dL Normal Comp rehensive Internal Medicine Work Phone: MICROALB 57.2 mg/dL Normal [facility] Work Phone: MICROALB 37.1 mg/L Normal [facility] Work Phone: Vital Signs Date Time Vital Sign Value Performing Clinician Facility 03-03-2025 10:21-0400 Body mass index (BMI) [Ratio] 62.77 kg/m2 Dejaraulito Nunez PERINATAL SOCIAL WORKER.STORAGE MANAGER Work Phone: [facility] 03-03-2025 10:21-0400 Body weight 171.1 kg Dejaraulito Cathar PERINATAL SOCIAL WORKER.STORAGE MANAGER Work Phone: [facility] 03-03-2025 10:21-0400 Diastolic blood pressure 96 mm[Hg] Deja Hrnchar PERINATAL SOCIAL WORKER.STORAGE MANAGER Work Phone: [facility] 03-03-2025 10:21-0400 Heart rate 60 /min Deja Hrnchar PERINATAL SOCIAL WORKER.STORAGE MANAGER Work Phone: [facility] 03-03-2025 10:21-0400 Respiratory rate 18 /min Deja Hrnchar PERINATAL SOCIAL WORKER.STORAGE MANAGER Work Phone: [facility] 03-03-2025 10:21-0400 SaO2% (BldA) [Mass fraction] 96 % Deja Hrnchar PERINATAL SOCIAL WORKER.STORAGE MANAGER Work Phone: [facility] 03-03-2025 10:21-0400 Systolic blood pressure 163 mm[Hg] Deja Hrnchar PERINATAL SOCIAL WORKER.STORAGE MANAGER Work Phone: [facility] 09-02-2024 09:48-0500 Body mass index (BMI) [Ratio] 61.93 kg/m2 Deja Hrnchar PERINATAL SOCIAL WORKER.STORAGE MANAGER Work Phone: [facility] 09-02-2024 09:48-0500 Body temperature 98.91 [degF] Deja Hrnchar PERINATAL SOCIAL WORKER.STORAGE MANAGER Work Phone: [facility] 09-02-2024 09:48-0500 Body weight 168.8 kg Deja Hrnchar PERINATAL SOCIAL WORKER.STORAGE MANAGER Work Phone: [facility] 09-02-2024 09:48-0500 Diastolic blood pressure 94 mm[Hg] Deja Hrnchar PERINATAL SOCIAL WORKER.STORAGE MANAGER Work Phone: [facility] 09-02-2024 09:48-0500 Heart rate 60 /min Deja Hrnchar PERINATAL SOCIAL WORKER.STORAGE MANAGER Work Phone: [facility] 09-02-2024 09:48-0500 Respiratory rate 18 /min Deja Hrnchar PERINATAL SOCIAL WORKER.STORAGE MANAGER Work Phone: [facility] 09-02-2024 09:48-0500 SaO2% (BldA) [Mass fraction] 90 % Deja Hrnchar PERINATAL SOCIAL WORKER.STORAGE MANAGER Work Phone: [facility] 09-02-2024 09:48-0500 Systolic blood pressure 184 mm[Hg] Deja Hrnchar PERINATAL SOCIAL WORKER.STORAGE MANAGER Work Phone: [facility] 08-14-2024 10:22-0500 Body mass index (BMI) [Ratio] 61.23 kg/m2 Sera Reddy MD Work Phone: [facility] 08-14-2024 10:22-0500 Body temperature 98.29 [degF] Sera Reddy MD Work Phone: [facility] 08-14-2024 10:22-0500 Body weight 166.9 kg Sera Reddy MD Work Phone: [facility] 08-14-2024 10:22-0500 Diastolic blood pressure 95 mm[Hg] Sera Reddy MD Work Phone: [facility] 08-14-2024 10:22-0500 Heart rate 60 /min Sera Reddy MD Work Phone: [facility] 08-14-2024 10:22-0500 Respiratory rate 18 /min Sera Reddy MD Work Phone: [facility] 08-14-2024 10:22-0500 SaO2% (BldA) [Mass fraction] 95 % Sera Reddy MD Work Phone: [facility] 08-14-2024 10:22-0500 Systolic blood pressure 178 mm[Hg] Sera Reddy MD Work Phone: [facility] 07-17-2024 12:29-0500 Body height 165.1 cm Pacc 1 Work Phone: [facility] 07-17-2024 12:29-0500 Body mass index (BMI) [Ratio] 61.08 kg/m2 Pacc 1 Work Phone: [facility] 07-17-2024 12:29-0500 Body temperature 98.71 [degF] Pacc 1 Work Phone: [facility] 07-17-2024 12:29-0500 Body weight 166.5 kg Pacc 1 Work Phone: [facility] 07-17-2024 12:29-0500 Diastolic blood pressure 68 mm[Hg] Pacc 1 Work Phone: [facility] 07-17-2024 12:29-0500 Heart rate 60 /min Pacc 1 Work Phone: [facility] 07-17-2024 12:29-0500 Respiratory rate 16 /min Pacc 1 Work Phone: [facility] 07-17-2024 12:29-0500 SaO2% (BldA) [Mass fraction] 95 % Pacc 1 Work Phone: [facility] 07-17-2024 12:29-0500 Systolic blood pressure 171 mm[Hg] Pacc 1 Work Phone: [facility] 07-15-2024 08:34-0500 Body height 165.1 cm Shuttle Threader 4 Work Phone: [facility] 07-10-2024 09:33-0500 Body mass index (BMI) [Ratio] 62.33 kg/m2 Sera Reddy MD Work Phone: [facility] 07-10-2024 09:33-0500 Body weight 167.3 kg Sera Reddy MD Work Phone: [facility] 07-10-2024 09:33-0500 Diastolic blood pressure 81 mm[Hg] Sera Reddy MD Work Phone: [facility] 07-10-2024 09:33-0500 Heart rate 70 /min Sera Reddy MD Work Phone: [facility] 07-10-2024 09:33-0500 Respiratory rate 18 /min Sera Reddy MD Work Phone: [facility] 07-10-2024 09:33-0500 SaO2% (BldA) [Mass fraction] 93 % Sera Reddy MD Work Phone: [facility] 07-10-2024 09:33-0500 Systolic blood pressure 198 mm[Hg] Sera Reddy MD Work Phone: [facility] 06-19-2024 09:24-0400 Body mass index (BMI) [Ratio] 61.18 kg/m2 Arleth Lau APRN.STORAGE MANAGER Work Phone: [facility] 06-19-2024 09:24-0400 Body weight 164.2 kg Arleth Lau APRN.STORAGE MANAGER Work Phone: [facility] 06-19-2024 09:24-0400 Diastolic blood pressure 74 mm[Hg] Arleth Lau APRN.STORAGE MANAGER Work Phone: [facility] 06-19-2024 09:24-0400 Systolic blood pressure 152 mm[Hg] Arleth Sid PIMENTEL Work Phone: [facility] 05-08-2024 11:02-0400 Body height 163.8 cm Hunter Her MD Work Phone: [facility] 05-08-2024 11:02-0400 Body mass index (BMI) [Ratio] 61.18 kg/m2 Hunter Her MD Work Phone: [facility] 05-08-2024 11:02-0400 Body weight 164.2 kg Hunter Her MD Work Phone: [facility] 05-08-2024 11:02-0400 Diastolic blood pressure 88 mm[Hg] Hunter Her MD Work Phone: [facility] 05-08-2024 11:02-0400 Systolic blood pressure 152 mm[Hg] Hunter Her MD Work Phone: [facility] 07-25-2022 11:37-0500 Body height 162.56 cm Wanda Puente LPN [facility]; [facility] Work Phone: 07-25-2022 11:37-0500 Body mass index (BMI) [Ratio] 59.91 kg/m2 Wanda Puente LPN [facility]; [facility] Work Phone: 07-25-2022 11:37-0500 Body surface area Derived from formula 2.48 m2 Wanda Puente LPN [facility]; [facility] Work Phone: 07-25-2022 11:37-0500 Body temperature 97.9 [degF] Wanda Puente LPN [facility]; [facility] Work Phone: 07-25-2022 11:37-0500 Body weight 158.31 kg Wanda Puente LPN [facility]; [facility] Work Phone: 07-25-2022 11:37-0500 Diastolic blood pressure 90 mm[Hg] Wanda Puente LPN [facility]; [facility] Work Phone: Comment on above: Patient Position: Sitting; Cuff Location : Left Arm; Cuff Size: Standard 07-25-2022 11:37-0500 Heart rate 67 /min Wanda Puente LPN [facility]; [facility] Work Phone: Comment on above: Pattern: Regular 07-25-2022 11:37-0500 Respiratory rate 18 /min Wanda Puente LPN [facility]; [facility] Work Phone: Comment on above: Pattern: Unlabored 07-25-2022 11:37-0500 SaO2% (BldA) [Mass fraction] 96 % Wanda Puente LPN [facility]; [facility] Work Phone: Comment on above: Room air 07-25-2022 11:37-0500 Systolic blood pressure 158 mm[Hg] Wanda Puente AUTOMOTIVE HEAVY MECHANIC [facility]; [facility] Work Phone: Comment on above: Patient Position: Sitting; Cuff Location : Left Arm; Cuff Size: Standard 04-06-2022 13:13-0400 Body height 165 cm Adolfo Bonezzi Other Phone: [facility] 04-06-2022 13:13-0400 Body temperature 98.6 [degF] Adolfo Bonezzi Other Phone: [facility] 04-06-2022 13:13-0400 Diastolic blood pressure 96 mm[Hg] Adolfo Bonezzi Other Phone: [facility] 04-06-2022 13:13-0400 Heart rate 80 /min Adolfo Bonezzi Other Phone: [facility] 04-06-2022 13:13-0400 SaO2% (BldA) [Mass fraction] 95 % Adolfo Bonezzi Other Phone: [facility] 04-06-2022 13:13-0400 Systolic blood pressure 160 mm[Hg] Adolfo Bonezzi Other Phone: [facility] 11-07-2021 10:17-0400 Body height 162.56 cm Dayanna Slarb AUTOMOTIVE HEAVY MECHANIC [facility]; [facility] Work Phone: 11-07-2021 10:17-0400 Body mass index (BMI) [Ratio] 53.12 kg/m2 Dayanna Slarb AUTOMOTIVE HEAVY MECHANIC [facility]; [facility] Work Phone: 11-07-2021 10:17-0400 Body surface area Derived from formula 2.36 m2 Dayanna Slarb AUTOMOTIVE HEAVY MECHANIC [facility]; [facility] Work Phone: 11-07-2021 10:17-0400 Body temperature 97.1 [degF] Dayanna Slarb AUTOMOTIVE HEAVY MECHANIC [facility]; [facility] Work Phone: 11-07-2021 10:17-0400 Body weight 140.39 kg Dayanna Slarb AUTOMOTIVE HEAVY MECHANIC [facility]; [facility] Work Phone: 11-07-2021 10:17-0400 Diastolic blood pressure 82 mm[Hg] Dayanna Slarb AUTOMOTIVE HEAVY MECHANIC [facility]; [facility] Work Phone: Comment on above: Patient Position: Sitting; Cuff Location : Left Arm; Cuff Size: Standard 11-07-2021 10:17-0400 Heart rate 62 /min Dayanna Slarb AUTOMOTIVE HEAVY MECHANIC [facility]; [facility] Work Phone: Comment on above: Pattern: Regular 11-07-2021 10:17-0400 Respiratory rate 16 /min Dayanna Slarb AUTOMOTIVE HEAVY MECHANIC [facility]; [facility] Work Phone: Comment on above: Pattern: Unlabored 11-07-2021 10:17-0400 SaO2% (BldA) [Mass fraction] 95 % Dayanna Slarb AUTOMOTIVE HEAVY MECHANIC [facility]; [facility] Work Phone: Comment on above: Room air 11-07-2021 10:17-0400 Systolic blood pressure 144 mm[Hg] Dayanna Slarb AUTOMOTIVE HEAVY MECHANIC [facility]; [facility] Work Phone: Comment on above: Patient Position: Sitting; Cuff Location : Left Arm; Cuff Size: Standard 04-15-2021 10:36-0400 Body height 162.56 cm ARIEL Bradshaw JAMESON [facility]; [facility] Work Phone: 04-15-2021 10:36-0400 Body mass index (BMI) [Ratio] 48.75 kg/m2 ARIEL Bradshaw JAMESON [facility]; [facility] Work Phone: 04-15-2021 10:36-0400 Body surface area Derived from formula 2.27 m2 ARIEL Bradshaw JAMESON [facility]; [facility] Work Phone: 04-15-2021 10:36-0400 Body temperature 97.9 [degF] ARIEL Bradshaw JAMESON [facility]; [facility] Work Phone: Comment on above: Method: Temporal 04-15-2021 10:36-0400 Body weight 128.82 kg ARIEL Bradshaw JAMESON [facility] Work Phone: 04-15-2021 10:36-0400 Diastolic blood pressure 84 mm[Hg] ARIEL Bradshaw JAMESON [facility]; [facility] Work Phone: Comment on above: Patient Position: Sitting; Cuff Location : Left Arm; Cuff Size: Large 04-15-2021 10:36-0400 Heart rate 78 /min ARIEL Bradshaw JAMESON [facility]; [facility] Work Phone: Comment on above: Pattern: Regular 04-15-2021 10:36-0400 Respiratory rate 20 /min ARIEL Bradshaw JAMESON [facility]; [facility] Work Phone: Comment on above: Pattern: Unlabored 04-15-2021 10:36-0400 SaO2% (BldA) [Mass fraction] 98 % ARIEL Bradshaw JAMESON [facility]; [facility] Work Phone: Comment on above: Room air 04-15-2021 10:36-0400 Systolic blood pressure 124 mm[Hg] ARIEL Bradshaw JAMESON [facility]; [facility] Work Phone: Comment on above: Patient Position: Sitting; Cuff Location : Left Arm; Cuff Size: Large 04-12-2021 12:31-0400 Body height 165 cm Adolfo Bonezzi Other Phone: [facility] 04-12-2021 12:31-0400 Body temperature 98.6 [degF] Adolfo Bonezzi Other Phone: [facility] 04-12-2021 12:31-0400 Diastolic blood pressure 75 mm[Hg] Adolfo Bonezzi Other Phone: [facility] 04-12-2021 12:31-0400 Heart rate 77 /min Adolfo Bonezzi Other Phone: [facility] 04-12-2021 12:31-0400 SaO2% (BldA) [Mass fraction] 94 % Adolfo Bonezzi Other Phone: [facility] 04-12-2021 12:31-0400 Systolic blood pressure 185 mm[Hg] Adolfo Bonezzi Other Phone: [facility] 01-19-2021 01:04-0400 Diastolic blood pressure 87 mm[Hg] Adolfo Bonezzi Other Phone: [facility] 01-19-2021 01:04-0400 Heart rate 59 /min Adolfo Bonezzi Other Phone: [facility] 01-19-2021 01:04-0400 Respiratory rate 16 /min Adolfo Bonezzi Other Phone: [facility] 01-19-2021 01:04-0400 SaO2% (BldA) [Mass fraction] 98 % Adolfo Bonezzi Other Phone: [facility] 01-19-2021 01:04-0400 Systolic blood pressure 154 mm[Hg] Adolfo Bonezzi Other Phone: [facility] 01-18-2021 21:46-0400 Body height 165.1 cm Adolfo Bonezzi Other Phone: [facility] 01-18-2021 21:46-0400 Body temperature 98.24 [degF] Adolfo Osborn Other Phone: [facility] 01-18-2021 21:46-0400 Body weight 131.8 kg Adolfo Osborn Other Phone: [facility] 09-17-2020 09:21-0500 BMI (Body Mass Index) 48.98 kg/m2 Wanda Puente LPN [facility]; [facility] Work Phone: 09-17-2020 09:21-0500 Body Temperature 97.7 [degF] Wanda Puente LPN [facility]; [facility] Work Phone: Comment on above: Method: Temporal 09-17-2020 09:21-0500 Body weight 129.45 kg Wanda Puente LPN [facility]; [facility] Work Phone: 09-17-2020 09:21-0500 BP Diastolic 82 mm[Hg] Wanda Puente LPN [facility]; [facility] Work Phone: Comment on above: Patient Position: Sitting; Cuff Location : Left Arm; Cuff Size: Standard 09-17-2020 09:21-0500 BP Systolic 138 mm[Hg] Wanda Puente LPN [facility]; [facility] Work Phone: Comment on above: Patient Position: Sitting; Cuff Location : Left Arm; Cuff Size: Standard 09-17-2020 09:21-0500 BSA (Body Surface Area) 2.28 m2 Wanda Puente LPN [facility]; [facility] Work Phone: 09-17-2020 09:21-0500 Height 162.56 cm Wanda Puente LPN [facility]; [facility] Work Phone: 09-17-2020 09:21-0500 Pulse (Heart Rate) 61 /min Wanda Puente LPN [facility]; [facility] Work Phone: Comment on above: Pattern: Regular 09-17-2020 09:21-0500 Pulse Oximetry 97 % Adolfo Osborn [facility]; [facility] Work Phone: Comment on above: Room air 09-17-2020 09:21-0500 Respiratory Rate 16 /min Wandavivian Puente JAMESON [facility]; [facility] Work Phone: Comment on above: Pattern: Unlabored 09-17-2020 09:21-0500 SaO2% (BldA) [Mass fraction] 97 % Wandavivian Puente JAMESON [facility]; [facility] Work Phone: Comment on above: Room air 10-16-2019 13:19-0500 BMI (Body Mass Index) 50.29 kg/m2 ARIEL Bradshaw LPN [facility] Work Phone: 10-16-2019 13:19-0500 Body Temperature 97.9 [degF] ARIEL Bradshaw LPN [facility] Work Phone: Comment on above: Method: Temporal 10-16-2019 13:19-0500 Body weight 132.9 kg ARIEL Bradshaw LPN [facility] Work Phone: 10-16-2019 13:19-0500 BP Diastolic 80 mm[Hg] ARIEL Bradshaw LPN [facility] Work Phone: Comment on above: Patient Position: Sitting; Cuff Location : Left Arm; Cuff Size: Large 10-16-2019 13:19-0500 BP Systolic 124 mm[Hg] ARIEL Bradshaw LPN [facility] Work Phone: Comment on above: Patient Position: Sitting; Cuff Location : Left Arm; Cuff Size: Large 10-16-2019 13:19-0500 BSA (Body Surface Area) 2.3 m2 ARIEL Bradshaw LPN [facility] Work Phone: 10-16-2019 13:19-0500 Height 162.56 cm ARIEL Bradshaw LPN [facility] Work Phone: 10-16-2019 13:19-0500 Pulse (Heart Rate) 76 /min ARIEL Bradshaw LPN [facility] Work Phone: Comment on above: Pattern: Regular 10-16-2019 13:19-0500 Pulse Oximetry 98 % Adolfo Osborn [facility] Work Phone: Comment on above: Room air 10-16-2019 13:19-0500 Respiratory Rate 20 /min ARIEL Bradshaw JAMESON [facility] Work Phone: Comment on above: Pattern: Unlabored 10-16-2019 13:19-0500 SaO2% (BldA) [Mass fraction] 98 % ARIEL Augustine JAMESON [facility]; [facility] Work Phone: Comment on above: Room air 04-14-2019 13:30-0400 BMI (Body Mass Index) 49.09 kg/m2 ARIEL Bradshaw JAMESON [facility] Work Phone: 04-14-2019 13:30-0400 Body Temperature 97.9 [degF] ARIEL Augustine AUTOMOTIVE HEAVY MECHANIC [facility] Work Phone: Comment on above: Method: Temporal 04-14-2019 13:30-0400 Body weight 129.73 kg ARIEL Bradshaw AUTOMOTIVE HEAVY MECHANIC [facility] Work Phone: 04-14-2019 13:30-0400 BP Diastolic 84 mm[Hg] ARIEL Bradshaw AUTOMOTIVE HEAVY MECHANIC [facility] Work Phone: Comment on above: Patient Position: Sitting; Cuff Location : Left Arm; Cuff Size: Large 04-14-2019 13:30-0400 BP Systolic 152 mm[Hg] ARIEL Bradshaw AUTOMOTIVE HEAVY MECHANIC [facility] Work Phone: Comment on above: Patient Position: Sitting; Cuff Location : Left Arm; Cuff Size: Large 04-14-2019 13:30-0400 BSA (Body Surface Area) 2.28 m2 ARIEL Augustine AUTOMOTIVE HEAVY MECHANIC [facility] Work Phone: 04-14-2019 13:30-0400 Height 162.56 cm ARIEL Augustine JAMESON [facility] Work Phone: 04-14-2019 13:30-0400 Pulse (Heart Rate) 80 /min ARIEL Augustine AUTOMOTIVE HEAVY MECHANIC [facility] Work Phone: Comment on above: Pattern: Regular 04-14-2019 13:30-0400 Pulse Oximetry 98 % Adolfo Osborn [facility] Work Phone: Comment on above: Room air 04-14-2019 13:30-0400 Respiratory Rate 20 /min ARIEL Bradshaw LPN [facility] Work Phone: Comment on above: Pattern: Unlabored 04-14-2019 13:30-0400 SaO2% (BldA) [Mass fraction] 98 % ARIEL Bradshaw LPN [facility]; [facility] Work Phone: Comment on above: Room air 09-03-2018 10:51-0500 BMI (Body Mass Index) 49.43 kg/m2 ARIEL Bradshaw LPN [facility] Work Phone: 09-03-2018 10:51-0500 Body Temperature 97.6 [degF] ARIEL Bradshaw LPN [facility] Work Phone: Comment on above: Method: Temporal 09-03-2018 10:51-0500 Body weight 130.64 kg ARIEL Bradshaw LPN [facility] Work Phone: 09-03-2018 10:51-0500 BP Diastolic 84 mm[Hg] ARIEL Bradshaw LPN [facility] Work Phone: Comment on above: Patient Position: Sitting; Cuff Location : Left Wrist; Cuff Size: Large 09-03-2018 10:51-0500 BP Systolic 130 mm[Hg] ARIEL Bradshaw LPN [facility] Work Phone: Comment on above: Patient Position: Sitting; Cuff Location : Left Wrist; Cuff Size: Large 09-03-2018 10:51-0500 BSA (Body Surface Area) 2.28 m2 ARIEL Bradshaw LPN [facility] Work Phone: 09-03-2018 10:51-0500 Height 162.56 cm ARIEL Bradshaw LPN [facility] Internal Medicine Work Phone: 09-03-2018 10:51-0500 Pulse (Heart Rate) 78 /min ARIEL Bradshaw LPN [facility] Work Phone: Comment on above: Pattern: Regular 09-03-2018 10:51-0500 Pulse Oximetry 98 % Adolfo Osborn [facility] Internal Medicine Work Phone: Comment on above: Room air 09-03-2018 10:51-0500 Respiratory Rate 20 /min ARIEL Bradshaw LPN [facility] Internal Medicine Work Phone: Comment on above: Pattern: Unlabored 09-03-2018 10:51-0500 SaO2% (BldA) [Mass fraction] 98 % AIREL Bradshaw LPN [facility]; [facility] Work Phone: Comment on above: Room air 09-03-2018 10:51-0500 Weight 130.64 kg Adolfo Osborn [facility] Internal Medicine Work Phone: 11-02-2017 09:29-0500 BMI (Body Mass Index) 48.06 kg/m2 ARIEL Bradshaw LPN [facility] Internal Medicine Work Phone: Comment on above: patient states she has not yet taken her Lopressor yet this am 11-02-2017 09:29-0500 Body Temperature 97.6 [degF] ARIEL Bradshaw LPN [facility] Work Phone: Comment on above: Method: Temporal patient states she h as not yet taken her Lopressor yet this am 11-02-2017 09:29-0500 Body weight 127.01 kg ARIEL Bradshaw LPN [facility] Internal Medicine Work Phone: Comment on above: patient states she has not yet taken her Lopressor yet this am 11-02-2017 09:29-0500 BP Diastolic 90 mm[Hg] ARIEL Bradshaw LPN [facility] Internal Medicine Work Phone: Comment on above: Patient Position: Sitting; Cuff Location : Left Arm; Cuff Size: Large patient states she h as not yet taken her Lopressor yet this am 11-02-2017 09:29-0500 BP Systolic 152 mm[Hg] ARIEL Bradshaw LPN [facility] Internal Medicine Work Phone: Comment on above: Patient Position: Sitting; Cuff Location : Left Arm; Cuff Size: Large patient states she h as not yet taken her Lopressor yet this am 11-02-2017 09:29-0500 BSA (Body Surface Area) 2.26 m2 ARIEL Bradshaw JAMESON [facility] Internal Medicine Work Phone: Comment on above: patient states she has not yet taken her Lopressor yet this am 11-02-2017 09:29-0500 Height 162.56 cm ARIEL Bradshaw JAMESON [facility] Internal Medicine Work Phone: Comment on above: patient states she has not yet taken her Lopressor yet this am 11-02-2017 09:29-0500 Pulse (Heart Rate) 70 /min ARIEL Bradshaw JAMESON [facility] Internal Medicine Work Phone: Comment on above: Pattern: Regular patient states she h as not yet taken her Lopressor yet this am 11-02-2017 09:29-0500 Pulse Oximetry 95 % Adolfo Osborn [facility] Internal Medicine Work Phone: Comment on above: Room air patient states she h as not yet taken her Lopressor yet this am 11-02-2017 09:29-0500 Respiratory Rate 20 /min ARIEL Augustine BARBA [facility] Internal Medicine Work Phone: Comment on above: Pattern: Unlabored patient states she h as not yet taken her Lopressor yet this am 11-02-2017 09:29-0500 SaO2% (BldA) [Mass fraction] 95 % ARIEL Bradshaw JAMESON [facility]; [facility] Work Phone: Comment on above: Room air patient states she h as not yet taken her Lopressor yet this am 11-02-2017 09:29-0500 Weight 127.01 kg Adolfo Osborn [facility] Internal Medicine Work Phone: Comment on above: patient states she has not yet taken her Lopressor yet this am 09-20-2017 07:24-0500 BMI (Body Mass Index) 48.4 kg/m2 Pratima Redmond [facility] Internal Medicine Work Phone: 09-20-2017 07:24-0500 Body weight 127.92 kg Pratima Redmond [facility] Internal Medicine Work Phone: 09-20-2017 07:24-0500 BP Diastolic 88 mm[Hg] Pratima Redmond [facility] Internal Medicine Work Phone: Comment on above: Patient Position: Sitting; Cuff Location : Left Arm; Cuff Size: Standard 09-20-2017 07:24-0500 BP Systolic 134 mm[Hg] Pratima [facility] Internal Medicine Work Phone: Comment on above: Patient Position: Sitting; Cuff Location : Left Arm; Cuff Size: Standard 09-20-2017 07:24-0500 BSA (Body Surface Area) 2.26 m2 [facility]: 09-20-2017 07:24-0500 Height 162.56 cm [facility] Internal Medicine Work Phone: 09-20-2017 07:24-0500 Pulse (Heart Rate) 60 /min [facility] Internal Medicine Work Phone: Comment on above: Pattern: Regular 09-20-2017 07:24-0500 Pulse Oximetry 97 % [facility] Internal Medicine Work Phone: Comment on above: Room air 09-20-2017 07:24-0500 Respiratory Rate 18 /min [facility] Internal Medicine Work Phone: Comment on above: Pattern: Unlabored 09-20-2017 07:24-0500 SaO2% (BldA) [Mass fraction] 97 % [facility] Internal Medicine; [facility] Internal Medicine Work Phone: Comment on above: Room air 09-20-2017 07:24-0500 [facility] 127.92 [facility]: 02-09-2017 13:46-0400 BMI (Body Mass Index) 48.92 kg/m2 Shobha Marquez [facility] Internal Medicine Work Phone: 02-09-2017 13:46-0400 Body Temperature 97.2 [degF] Shobha Matson [facility] Internal Medicine Work Phone: Comment on above: Method: Temporal 02-09-2017 13:46-0400 Body weight 129.28 kg Shobha Matson [facility] Internal Medicine Work Phone: 02-09-2017 13:46-0400 BP Diastolic 84 mm[Hg] Shobha Conde Internal Medicine Work Phone: Comment on above: Patient Position: Sitting; Cuff Location : Left Arm; Cuff Size: Large 02-09-2017 13:46-0400 BP Systolic 136 mm[Hg] Shobha Trevizoirais [facility] Internal Medicine Work Phone: Comment on above: Patient Position: Sitting; Cuff Location : Left Arm; Cuff Size: Large 02-09-2017 13:46-0400 BSA (Body Surface Area) 2.27 m2 Shobha Huyen [facility] Internal Medicine Work Phone: 02-09-2017 13:46-0400 Height 162.56 cm Shobha Huyen [facility] Internal Medicine Work Phone: 02-09-2017 13:46-0400 Pulse (Heart Rate) 64 /min Shobha Trevizoirais [facility] Internal Medicine Work Phone: Comment on above: Pattern: Regular 02-09-2017 13:46-0400 Pulse Oximetry 96 % Adolfo Osborn [facility] Internal Medicine Work Phone: Comment on above: Room air 02-09-2017 13:46-0400 Respiratory Rate 17 /min Shobha Huyen [facility] Internal Medicine Work Phone: Comment on above: Pattern: Unlabored 02-09-2017 13:46-0400 SaO2% (BldA) [Mass fraction] 96 % Shobha Matson [facility] Internal Medicine; [facility] Medicine Work Phone: Comment on above: Room air 02-09-2017 13:46-0400 Weight 129.28 kg Adolfo Osborn [facility] Internal Medicine Work Phone: 02-02-2017 14:11-0400 BMI (Body Mass Index) 48.92 kg/m2 ARIEL Bradshaw LPN [facility] Internal Medicine Work Phone: 02-02-2017 14:11-0400 Body Temperature 97.4 [degF] ARIEL Bradshaw LPN [facility] Internal Medicine Work Phone: Comment on above: Method: Temporal 02-02-2017 14:11-0400 Body weight 129.28 kg ARIEL Bradshaw LPN [facility] Work Phone: 02-02-2017 14:11-0400 BP Diastolic 78 mm[Hg] ARIEL Bradshaw LPN [facility] Work Phone: Comment on above: Patient Position: Sitting; Cuff Location : Left Arm; Cuff Size: Large 02-02-2017 14:11-0400 BP Systolic 124 mm[Hg] ARIEL Bradshaw LPN [facility] Medicine Work Phone: Comment on above: Patient Position: Sitting; Cuff Location : Left Arm; Cuff Size: Large 02-02-2017 [id number]:110400 BSA (Body Surface Area) 2.27 m2 ARIEL Bradshaw LPN [facility] Work Phone: 02-02-2017 14:-0400 Height 162.56 cm ARIEL Bradshaw LPN [facility] Medicine Work Phone: 02-02-2017 14:11-0400 Pulse (Heart Rate) 64 /min ARIEL Bradshaw LPN [facility] Work Phone: Comment on above: Pattern: Regular 02-02-2017 14:11-0400 Pulse Oximetry 95 % Adolfo Osborn [facility] Internal Medicine Work Phone: Comment on above: Room air 02-02-2017 14:11-0400 Respiratory Rate 24 /min ARIEL Bradshaw LPN [facility] Work Phone: Comment on above: Pattern: Unlabored 02-02-2017 14:11-0400 SaO2% (BldA) [Mass fraction] 95 % ARIEL Bradshaw LPN [facility]; [facility] Work Phone: Comment on above: Room air 02-02-2017 14:11-0400 Weight 129.28 kg Adolfo Osborn [facility] Medicine Work Phone: 07-24-2016 14:06-0500 BMI (Body Mass Index) 51.49 kg/m2 ARIEL Bradshaw LPN [facility] Work Phone: 07-24-2016 14:06-0500 Body Temperature 97.4 [degF] ARIEL Bradshaw LPN [facility] Work Phone: Comment on above: Method: Temporal 07-24-2016 14:06-0500 Body weight 136.08 kg ARIEL Bradshaw LPN [facility] Work Phone: 07-24-2016 14:06-0500 BP Diastolic 90 mm[Hg] ARIEL Bradshaw LPN [facility] Work Phone: Comment on above: Patient Position: Sitting; Cuff Location : Left Arm; Cuff Size: Large 07-24-2016 14:06-0500 BP Systolic 140 mm[Hg] ARIEL Bradshaw LPN [facility] Work Phone: Comment on above: Patient Position: Sitting; Cuff Location : Left Arm; Cuff Size: Large 07-24-2016 14:06-0500 BSA (Body Surface Area) 2.32 m2 ARIEL Bradshaw LPN [facility] Work Phone: 07-24-2016 14:06-0500 Height 162.56 cm ARIEL Bradshaw LPN [facility] Work Phone: 07-24-2016 14:06-0500 Pulse (Heart Rate) 90 /min ARIEL Bradshaw LPN [facility] Work Phone: Comment on above: Pattern: Regular 07-24-2016 14:06-0500 Pulse Oximetry 97 % Adolfo Osborn [facility] Medicine Work Phone: Comment on above: Room air 07-24-2016 14:06-0500 Respiratory Rate 20 /min ARIEL Bradshaw LPN [facility] Work Phone: Comment on above: Pattern: Unlabored 07-24-2016 14:06-0500 SaO2% (BldA) [Mass fraction] 97 % ARIEL Bradshaw LPN [facility]; [facility] Work Phone: Comment on above: Room air 07-24-2016 14:06-0500 Weight 136.08 kg Adolfo Osborn [facility] Medicine Work Phone: 08-10-2015 08:46-0500 BMI (Body Mass Index) 48.92 kg/m2 Elysia Barnard CMA [facility] Work Phone: 08-10-2015 08:46-0500 Body Temperature 98 [degF] Elysia Barnard [facility] Internal Medicine Work Phone: Comment on above: Method: Oral 08-10-2015 08:46-0500 Body weight 133.36 kg Elysia Barnard [facility] Internal Medicine Work Phone: 08-10-2015 08:46-0500 BP Diastolic 72 mm[Hg] Elysia Barnard [facility] Internal Medicine Work Phone: Comment on above: Patient Position: Sitting; Cuff Location : Left Arm; Cuff Size: Standard 08-10-2015 08:46-0500 BP Systolic 126 mm[Hg] Elysia Barnard [facility] Internal Medicine Work Phone: Comment on above: Patient Position: Sitting; Cuff Location : Left Arm; Cuff Size: Standard 08-10-2015 08:46-0500 BSA (Body Surface Area) 2.33 m2 Elysia Barnard [facility] Work Phone: 08-10-2015 08:46-0500 Height 165.1 cm Elysia Barnard [facility] Internal Medicine Work Phone: 08-10-2015 08:46-0500 Pulse (Heart Rate) 68 /min Elysia Barnard [facility] Internal Medicine Work Phone: Comment on above: Pattern: Regular 08-10-2015 08:46-0500 Pulse Oximetry 93 % [facility] Work [facility]: Comment on above: Room air 08-10-2015 08:46-0500 Respiratory Rate 16 /min Elysia Barnard [facility] Work Phone: Comment on above: Pattern: Unlabored 08-10-2015 08:46-0500 SaO2% (BldA) [Mass fraction] 93 % Elysia Barnard [facility]; [facility] Work Phone: Comment on above: Room air 08-10-2015 08:46-0500 Weight 133.36 kg Adolfo Osborn [facility] Internal Medicine Work Phone: 05-01-2014 08:50-0400 BMI (Body Mass Index) 48.92 kg/m2 ARIEL Bradshaw LPN [facility] Internal Medicine Work Phone: 05-01-2014 08:50-0400 Body Temperature 97.9 [degF] ARIEL Bradshaw LPN [facility] Medicine Work Phone: Comment on above: Method: Oral 05-01-2014 08:50-0400 Body weight 133.36 kg ARIEL Bradshaw LPN [facility] Internal Medicine Work Phone: 05-01-2014 08:50-0400 BP Diastolic 84 mm[Hg] ARIEL Bradshaw [employer] [facility] Internal Medicine Work Phone: Comment on above: Patient Position: Sitting; Cuff Location : Left Arm; Cuff Size: Large 05-01-2014 08:50-0400 BP Systolic 126 mm[Hg] ARIEL Bradshaw LPN [facility] Internal Medicine Work Phone: Comment on above: Patient Position: Sitting; Cuff Location : Left Arm; Cuff Size: Large 05-01-2014 08:50-0400 BSA (Body Surface Area) 2.33 m2 [facility]EL [facility] Work Phone: 05-01-2014 08:50-0400 Height 165.1 cm ARIEL Bradshaw [facility] Work Phone: 05-01-2014 08:50-0400 Pulse (Heart Rate) 72 /min ARIEL Bradshaw [facility] Work Phone: Comment on above: Pattern: Regular 05-01-2014 08:50-0400 Respiratory Rate 20 /min ARIEL Bradshaw [facility] Work Phone: Comment on above: Pattern: Unlabored 05-01-2014 08:50-0400 Weight 133.36 kg Adolfo Osborn [facility] Medicine Work Phone: 01-22-2014 12:11-0400 BMI (Body Mass Index) 47.59 kg/m2 ARIEL Bradshaw [employer] [facility] Internal Medicine Work Phone: 01-22-2014 12:11-0400 Body Temperature 98.7 [degF] ARIEL Bradshaw [facility] Work Phone: Comment on above: Method: Oral 01-22-2014 12:11-0400 Body weight 129.73 kg [facility] Work Phone: 01-22-2014 12:11-0400 BP Diastolic 82 mm[Hg] [facility] Work Phone: Comment on above: Patient Position: Sitting; Cuff Location : Left Arm; Cuff Size: Large 01-22-2014 12:11-0400 BP Systolic 126 mm[Hg] [facility] Work Phone: Comment on above: Patient Position: Sitting; Cuff Location : Left Arm; Cuff Size: Large 01-22-2014 12:11-0400 BSA (Body Surface Area) 2.3 m2 [facility] Work Phone: 01-22-2014 12:11-0400 Height 165.1 cm ARIEL Bradshaw [facility] Work Phone: 01-22-2014 12:11-0400 Pulse (Heart Rate) 70 /min ARIEL Bradshaw [facility] Work Phone: Comment on above: Pattern: Regular 01-22-2014 12:11-0400 Respiratory Rate 20 /min [facility] Work Phone: Comment on above: Pattern: Unlabored 01-22-2014 12:11-0400 Weight 129.73 kg Adolfo Osborn [facility] Internal Medicine Work Phone: 02-07-2013 11:49-0400 BMI (Body Mass Index) 48.39 kg/m2 Juan Carlos Barron RN [facility] Internal Medicine Work Phone: 02-07-2013 11:49-0400 Body Temperature 98 [degF] Juan Carlos Barron RN [facility] Internal Medicine Work Phone: Comment on above: Method: Temporal 02-07-2013 11:49-0400 Body weight 131.91 kg Juan Carlos Barron RN [facility] Internal Medicine Work Phone: 02-07-2013 11:49-0400 BSA (Body Surface Area) 2.32 m2 Juan Carlos Barron RN [facility] Work Phone: 02-07-2013 11:49-0400 Height 165.1 cm Juan Carlos Barron RN [facility] Work Phone: 02-07-2013 11:49-0400 Pulse (Heart Rate) 74 /min Juan Carlos Barron RN [facility] Work Phone: Comment on above: Pattern: Regular 02-07-2013 11:49-0400 Pulse Oximetry 98 % Adolfo Osborn [facility] Medicine Work Phone: Comment on above: Room air 02-07-2013 11:49-0400 SaO2% (BldA) [Mass fraction] 98 % Juan Carlos Barron RN [facility]; [facility] Work Phone: Comment on above: Room air 02-07-2013 11:49-0400 Weight 131.91 kg Adolfo Osborn [facility] Medicine Work Phone: 07-11-2012 07:53-0500 BMI (Body Mass Index) 47.26 kg/m2 ARIEL Bradshaw LPN [facility] Work Phone: 07-11-2012 07:53-0500 Body Temperature 98 [degF] ARIEL Bradshaw LPN [facility] Internal Medicine Work Phone: Comment on above: Method: Oral 07-11-2012 07:53-0500 Body weight 128.82 kg ARIEL Bradshaw LPN [facility] Internal Medicine Work Phone: 07-11-2012 07:53-0500 BP Diastolic 86 mm[Hg] ARIEL Bradshaw LPN [facility] Internal Medicine Work Phone: Comment on above: Patient Position: Sitting; Cuff Location : Left Arm; Cuff Size: Large 07-11-2012 07:53-0500 BP Systolic 144 mm[Hg] ARIEL Bradshaw LPN [facility] Internal Medicine Work Phone: Comment on above: Patient Position: Sitting; Cuff Location : Left Arm; Cuff Size: Large 07-11-2012 07:53-0500 BSA (Body Surface Area) 2.3 m2 ARIEL Bradshaw LPN [facility] Work Phone: 07-11-2012 07:53-0500 Height 165.1 cm ARIEL Bradshaw [employer] [facility] Internal Medicine Work Phone: 07-11-2012 07:53-0500 Pulse (Heart Rate) 64 /min ARIEL Bradshaw [employer] [facility] Internal Medicine Work Phone: Comment on above: Pattern: Regular 07-11-2012 07:53-0500 Respiratory Rate 20 /min ARIEL Bradshaw [facility] Work Phone: Comment on above: Pattern: Unlabored 07-11-2012 07:53-0500 Weight 128.82 kg Adolfo Osborn [facility] Medicine Work Phone: 06-13-2012 08:50-0400 BMI (Body Mass Index) 47.93 kg/m2 ARIEL Bradshaw [facility] Work Phone: 06-13-2012 08:50-0400 Body Temperature 98 [degF] ARIEL Bradshaw [facility] Work Phone: Comment on above: Method: Oral 06-13-2012 08:50-0400 Body weight 130.64 kg ARIEL Bradshaw [facility] Work Phone: 06-13-2012 08:50-0400 BP Diastolic 100 mm[Hg] ARIEL Bradshaw [facility] Work Phone: Comment on above: Patient Position: Sitting; Cuff Location : Left Arm; Cuff Size: Large 06-13-2012 08:50-0400 BP Systolic 164 mm[Hg] ARIEL Bradshaw [facility] Work Phone: Comment on above: Patient Position: Sitting; Cuff Location : Left Arm; Cuff Size: Large 06-13-2012 08:50-0400 BSA (Body Surface Area) 2.31 m2 ARIEL Bradshaw [facility] Work Phone: 06-13-2012 08:50-0400 Height 165.1 cm ARIEL Bradshaw [facility] Work Phone: 06-13-2012 08:50-0400 Pulse (Heart Rate) 68 /min ARIEL Bradshaw LPN [facility] Internal Medicine Work Phone: Comment on above: Pattern: Regular 06-13-2012 08:50-0400 Respiratory Rate 20 /min ARIEL Bradshaw LPN [facility] Internal Medicine Work Phone: Comment on above: Pattern: Unlabored 06-13-2012 08:50-0400 Weight 130.64 kg Adolfo Osborn [facility] Internal Medicine Work Phone: 02-19-2012 09:32-0400 BMI (Body Mass Index) 48.92 kg/m2 ARIEL Bradshaw LPN [facility] Medicine Work Phone: 02-19-2012 09:32-0400 Body Temperature 97.9 [degF] ARIEL Bradshaw LPN [facility] Internal Medicine Work Phone: Comment on above: Method: Oral 02-19-2012 09:32-0400 Body weight 133.36 kg ARIEL Bradshaw LPN [facility] Medicine Work Phone: 02-19-2012 09:32-0400 BP Diastolic 84 mm[Hg] ARIEL Bradshaw [employer] [facility] Medicine Work Phone: Comment on above: Patient Position: Sitting; Cuff Location : Left Arm; Cuff Size: Large 02-19-2012 09:32-0400 BP Systolic 136 mm[Hg] ARIEL Bradshaw LPN [facility] Internal Medicine Work Phone: Comment on above: Patient Position: Sitting; Cuff Location : Left Arm; Cuff Size: Large 02-19-2012 09:32-0400 BSA (Body Surface Area) 2.33 m2 ARIEL Bradshaw LPN [facility] Internal Medicine Work Phone: 02-19-2012 09:32-0400 Height 165.1 cm ARIEL Bradshaw LPN [facility] Medicine Work Phone: 02-19-2012 09:32-0400 Pulse (Heart Rate) 76 /min ARIEL Bradshaw LPN [facility] Internal Medicine Work Phone: Comment on above: Pattern: Regular 02-19-2012 09:32-0400 Respiratory Rate 20 /min ARIEL Bradshaw LPN [facility] Medicine Work Phone: Comment on above: Pattern: Unlabored 02-19-2012 09:32-0400 Weight 133.36 kg Adolfo Osborn [facility] Medicine Work Phone: 02-02-2012 10:19-0400 BMI (Body Mass Index) 48.92 kg/m2 Adolfo Osborn [facility] Internal Medicine Work Phone: 02-02-2012 10:19-0400 Body Temperature 98.4 [degF] [facility] Work Phone: Comment on above: Method: Oral 02-02-2012 10:19-0400 Body weight 133.36 kg Adolfo Osborn [facility] Medicine Work Phone: 02-02-2012 10:19-0400 BP Diastolic 84 mm[Hg] [facility] Work Phone: Comment on above: Patient Position: Sitting; Cuff Location : Left Arm; Cuff Size: Standard 02-02-2012 10:19-0400 BP Systolic 142 mm[Hg] [facility] Work Phone: Comment on above: Patient Position: Sitting; Cuff Location : Left Arm; Cuff Size: Standard 02-02-2012 10:19-0400 BSA (Body Surface Area) 2.33 m2 Adolfo Osborn [facility] Medicine Work Phone: 02-02-2012 10:19-0400 Height 165.1 cm [facility] Work Phone: 02-02-2012 10:19-0400 Pulse (Heart Rate) 78 /min Adolfo Osborn [facility] Medicine Work Phone: Comment on above: Pattern: Regular 02-02-2012 10:19-0400 Weight 133.36 kg Adolfo Osborn [facility] Work Phone: 01-26-2012 08:30-0400 BMI (Body Mass Index) 48.92 kg/m2 Mary Nick RN [facility] Internal Medicine Work Phone: 01-26-2012 08:30-0400 Body Temperature 97.8 [degF] Mary Nick RN [facility] Work Phone: Comment on above: Method: Oral 01-26-2012 08:30-0400 Body weight 133.36 kg Mary Nick RN [facility] Work Phone: 01-26-2012 08:30-0400 BP Diastolic 76 mm[Hg] Mary Nick RN [facility] Work Phone: Comment on above: Patient Position: Sitting; Cuff Location : Left Arm; Cuff Size: Large 01-26-2012 08:30-0400 BP Systolic 130 mm[Hg] Mary Nick RN [facility] Work Phone: Comment on above: Patient Position: Sitting; Cuff Location : Left Arm; Cuff Size: Large 01-26-2012 08:30-0400 BSA (Body Surface Area) 2.33 m2 Mary Nick RN [facility] Work Phone: 01-26-2012 08:30-0400 Height 165.1 cm Mary Nick RN [facility] Work Phone: 01-26-2012 08:30-0400 Pulse (Heart Rate) 80 /min Mary Nick RN [facility] Work Phone: Comment on above: Pattern: Regular 01-26-2012 08:30-0400 Respiratory Rate 18 /min Mary Nick RN [facility] Work Phone: Comment on above: Pattern: Unlabored 01-26-2012 08:30-0400 Weight 133.36 kg Adolfomily Bowersren [facility] Work Phone: 11-21-2011 08:11-0400 BMI (Body Mass Index) 49.59 kg/m2 Mary Nick RN [facility] Work Phone: 11-21-2011 08:11-0400 Body Temperature 98.1 [degF] Mary Nikc RN [facility] Work Phone: Comment on above: Method: Oral 11-21-2011 08:11-0400 Body weight 135.17 kg Mary Nick RN [facility] Work Phone: 11-21-2011 08:11-0400 BP Diastolic 82 mm[Hg] Mary Nick RN [facility] Work Phone: Comment on above: Patient Position: Sitting; Cuff Location : Left Arm; Cuff Size: Large 11-21-2011 08:11-0400 BP Systolic 122 mm[Hg] Mary Nick RN [facility] Work Phone: Comment on above: Patient Position: Sitting; Cuff Location : Left Arm; Cuff Size: Large 11-21-2011 08:11-0400 BSA (Body Surface Area) 2.34 m2 Mary Nick RN [facility] Work Phone: 11-21-2011 08:11-0400 Height 165.1 cm Mary Nick RN [facility] Work Phone: 11-21-2011 08:11-0400 Pulse (Heart Rate) 80 /min Mary Nick RN [facility] Work Phone: Comment on above: Pattern: Regular 11-21-2011 08:11-0400 Respiratory Rate 16 /min Mary Nick RN [facility] Work Phone: Comment on above: Pattern: Unlabored 11-21-2011 08:11-0400 Weight 135.17 kg Adolfo Bowersren [facility] Work Phone: 02-23-2011 12:36-0400 BMI (Body Mass Index) 48.42 kg/m2 ARIEL Bradshaw LPN [facility] Work Phone: Comment on above: patient been running around doing errand s and knew my b/p would be high 02-23-2011 12:36-0400 Body Temperature 97.9 [degF] ARIEL Bradshaw LPN [facility] Work Phone: Comment on above: Method: Oral patient been running around doing errands and knew my b/p would be high 02-23-2011 12:36-0400 Body weight 132 kg ARIEL Bradshaw LPN [facility] Work Phone: Comment on above: patient been running around doing errand s and knew my b/p would be high 02-23-2011 12:36-0400 BP Diastolic 100 mm[Hg] ARIEL Bradshaw LPN [facility] Work Phone: Comment on above: Patient Position: Sitting; Cuff Location : Left Arm; Cuff Size: Large patient been running around doing errands and knew my b/p would be high 02-23-2011 12:36-0400 BP Systolic 164 mm[Hg] [facility] Bradshaw [facility] Work Phone: Comment on above: Patient Position: Sitting; Cuff Location : Left Arm; Cuff Size: Large patient been running around doing errands and knew my b/p would be high 02-23-2011 12:36-0400 BSA (Body Surface Area) 2.32 m2 ARIEL Bradshaw [facility] Work Phone: Comment on above: patient been running around doing errand s and knew my b/p would be high 02-23-2011 12:36-0400 Height 165.1 cm ARIEL Bradshaw [facility] Work Phone: Comment on above: patient been running around doing errand s and knew my b/p would be high 02-23-2011 12:36-0400 Pulse (Heart Rate) 82 /min ARIEL Bradshaw [facility] Work Phone: Comment on above: Pattern: Regular patient been running around doing errands and knew my b/p would be high 02-23-2011 12:36-0400 Respiratory Rate 20 /min ARIEL Bradshaw [facility] Work Phone: Comment on above: Pattern: Unlabored patient been running around doing errands and knew my b/p would be high 02-23-2011 12:36-0400 Weight 132 kg Adolfo Osborn [facility] Internal Medicine Work Phone: Comment on above: patient been running around doing errand s and knew my b/p would be high 01-16-2011 09:15-0400 BMI (Body Mass Index) 49.59 kg/m2 Adolfo Osborn [facility] Internal Medicine Work Phone: 01-16-2011 09:15-0400 Body Temperature 97.2 [degF] Adolfo Osborn [facility] Internal Medicine Work Phone: Comment on above: Method: Oral 01-16-2011 09:15-0400 Body weight 135.[address] Internal Medicine Work Phone: 01-16-2011 09:15-0400 BP Diastolic 90 mm[Hg] [facility] Internal Medicine Work Phone: Comment on above: Patient Position: Sitting; Cuff Location : Left Arm; Cuff Size: Standard 01-16-2011 09:15-0400 BP Systolic 154 mm[Hg] [facility] Internal Medicine Work Phone: Comment on above: Patient Position: Sitting; Cuff Location : Left Arm; Cuff Size: Standard 01-16-2011 09:15-0400 BSA (Body Surface Area) 2.[address] Internal Medicine Work Phone: 01-16-2011 09:15-0400 Height 165.1 cm [facility] Medicine Work Phone: 01-16-2011 09:15-0400 Pulse (Heart Rate) 78 /min [facility] Internal Medicine Work Phone: Comment on above: Pattern: Regular 01-16-2011 09:15-0400 Respiratory Rate 18 /min [facility] Internal Medicine Work Phone: Comment on above: Pattern: Unlabored 01-16-2011 09:15-0400 Weight 135.17 kg [facility] Medicine Work Phone: 02-10-2010 11:04-0400 BP Diastolic 86 mm[Hg] [facility] Internal Medicine Work Phone: Comment on above: Patient Position: Sitting; Cuff Location : Left Arm; Cuff Size: Standard 02-10-2010 11:04-0400 BP Systolic 138 mm[Hg] [facility] Internal Medicine Work Phone: Comment on above: Patient Position: Sitting; Cuff Location : Left Arm; Cuff Size: Standard 02-10-2010 11:04-0400 Pulse (Heart Rate) 70 /min [facility] Internal Medicine Work Phone: Comment on above: Pattern: Regular 02-10-2010 11:04-0400 Respiratory Rate 18 /min Gloria Ashford [facility] Internal Medicine Work Phone: Comment on above: Pattern: Unlabored 01-04-2010 08:57-0400 Body weight 135.17 kg ARIEL Bradshaw [facility] Work Phone: 01-04-2010 08:57-0400 BP Diastolic 84 mm[Hg] ARIEL Bradshaw [facility] Work Phone: Comment on above: Patient Position: Sitting; Cuff Location : Left Arm; Cuff Size: Large 01-04-2010 08:57-0400 BP Systolic 126 mm[Hg] ARIEL Bradshaw [facility] Work Phone: Comment on above: Patient Position: Sitting; Cuff Location : Left Arm; Cuff Size: Large 01-04-2010 08:57-0400 Pulse (Heart Rate) 74 /min ARIEL Bradshaw [facility] Work Phone: Comment on above: Pattern: Regular 01-04-2010 08:57-0400 Respiratory Rate 20 /min ARIEL Bradshaw [facility] Work Phone: Comment on above: Pattern: Unlabored 01-04-2010 08:57-0400 Weight 135.17 kg Adolfo Osborn [facility] Internal Medicine Work Phone: 06-23-2009 08:41-0400 Body Temperature 98.3 [degF] [facility] Internal Medicine Work Phone: Comment on above: Method: Oral 06-23-2009 08:41-0400 Body weight 134.27 kg [facility] Internal Medicine Work Phone: 06-23-2009 08:41-0400 BP Diastolic 82 mm[Hg] [facility] Internal Medicine Work Phone: Comment on above: Patient Position: Sitting; Cuff Location : Left Arm; Cuff Size: Large 06-23-2009 08:41-0400 BP Systolic 138 mm[Hg] [facility] Internal Medicine Work Phone: Comment on above: Patient Position: Sitting; Cuff Location : Left Arm; Cuff Size: Large 06-23-2009 08:41-0400 Head Circumference [address] Internal Medicine Work Phone: 06-23-2009 08:41-0400 Head Occipital-frontal circumference 0 cm [facility]; [facility] Work Phone: 06-23-2009 08:41-0400 Height 0 cm [facility] Internal Medicine Work Phone: 06-23-2009 08:41-0400 Pulse (Heart Rate) 82 /min [facility] Internal Medicine Work Phone: Comment on above: Pattern: Regular 06-23-2009 08:41-0400 Respiratory Rate 18 /min [facility] Internal Medicine Work Phone: Comment on above: Pattern: Unlabored 06-23-2009 08:41-[address] Internal Medicine Work Phone: 01-05-2009 10:58-0400 Body weight 137.44 kg ARIEL Bradshaw [facility] Work Phone: 01-05-2009 10:58-0400 BP Diastolic 84 mm[Hg] ARIEL Bradshaw [facility] Work Phone: Comment on above: Patient Position: Sitting; Cuff Location : Left Arm; Cuff Size: Large 01-05-2009 10:58-0400 BP Systolic 144 mm[Hg] ARIEL Bradshaw [facility] Work Phone: Comment on above: Patient Position: Sitting; Cuff Location : Left Arm; Cuff Size: Large 01-05-2009 10:58-0400 Head Circumference [address] [facility] Internal Medicine Work Phone: 01-05-2009 10:58-0400 Head Occipital-frontal circumference 0 cm ARIELSEBASTIAN Bradshaw [employer] [facility] Internal Medicine; [facility] Work Phone: 01-05-2009 10:58-0400 Height 0 cm ARIEL Augustine [employer]OT[employer]AV[employer] MECH[employer] [facility] Work Phone: 01-05-2009 10:58-0400 Pulse (Heart Rate) 74 /min ARIEL Bradshaw [facility] Work Phone: Comment on above: Pattern: Regular 01-05-2009 10:58-0400 Respiratory Rate 18 /min ARIEL Bradshaw LPN [facility] Work Phone: Comment on above: Pattern: Unlabored 01-05-2009 10:58-0400 Weight 137.44 kg Adolfo Bonezzi [facility] Work Phone: 10-09-2008 13:39-0500 Body weight 137.21 kg Adolfo Bonezzi [facility] Work Phone: 10-09-2008 13:39-0500 BP Diastolic 80 mm[Hg] Adolfo Bonezzi [facility] Work Phone: Comment on above: Patient Position: Sitting; Cuff Location : Right Arm; Cuff Size: Standard 10-09-2008 13:39-0500 BP Systolic 152 mm[Hg] Adolfo Bonei [facility] Work Phone: Comment on above: Patient Position: Sitting; Cuff Location : Right Arm; Cuff Size: Standard 10-09-2008 13:39-0500 Head Circumference 0 cm Adolfo Boneiani [facility] Work Phone: 10-09-2008 13:39-0500 Head Occipital-frontal circumference 0 cm Adolfo Osborn [place] Work Phone: [facility]; [facility] Work Phone: 10-09-2008 13:39-0500 Height 0 cm Adolfo Bonezzi [facility] Work Phone: 10-09-2008 13:39-0500 Pulse (Heart Rate) 88 /min Adolfo Bonezzi [facility] Work Phone: Comment on above: Pattern: Regular 10-09-2008 13:39-0500 Respiratory Rate 20 /min Adolfo Bonezzi [facility] Work Phone: Comment on above: Pattern: Unlabored 10-09-2008 13:39-0500 Weight 137.21 kg Adolfo Bonezzi [facility] Work Phone: 08-08-2007 13:10-0500 Body Temperature 98.4 [degF] ARIEL Bradshaw LPN [facility] Work Phone: Comment on above: Method: Oral 08-08-2007 13:10-0500 Body weight 132.45 kg ARIEL Bradshaw LPN [facility] Work Phone: 08-08-2007 13:10-0500 BP Diastolic 80 mm[Hg] ARIEL Bradshaw LPN [facility] Work Phone: Comment on above: Patient Position: Sitting; Cuff Location : Left Arm; Cuff Size: Large 08-08-2007 13:10-0500 BP Systolic 130 mm[Hg] ARIEL Bradshaw LPN [facility] Work Phone: Comment on above: Patient Position: Sitting; Cuff Location : Left Arm; Cuff Size: Large 08-08-2007 13:10-0500 Head Circumference 0 [facility] Work Phone: 08-08-2007 13:10-0500 Head Occipital-frontal circumference 0 cm ARIEL Bradshaw LPN [facility]; [facility] Work Phone: 08-08-2007 13:10-0500 Height 0 cm ARIEL Bradshaw LPN [facility] Work Phone: 08-08-2007 13:10-0500 Pulse (Heart Rate) 68 /min ARIEL Bradshaw LPN [facility] Work Phone: Comment on above: Pattern: Regular 08-08-2007 13:10-0500 Respiratory Rate 18 /min ARIEL Bradshaw LPN [facility] Work Phone: Comment on above: Pattern: Unlabored 08-08-2007 13:10-0500 Weight 132.45 kg Adolfo Osborn [facility] Internal Medicine Work Phone: 01-30-2007 09:11-0400 Body Temperature 97.7 [degF] ARIEL Bradshaw LPN [facility] Work Phone: Comment on above: Method: Oral 01-30-2007 09:11-0400 Body weight 135.17 kg ARIEL Bradshaw LPN [facility] Work Phone: 01-30-2007 09:11-0400 BP Diastolic 80 mm[Hg] ARIEL Bradshaw LPN [facility] Work Phone: Comment on above: Patient Position: Sitting; Cuff Location : Left Arm; Cuff Size: Standard 01-30-2007 09:11-0400 BP Systolic 124 mm[Hg] ARIEL Bradshaw [employer] [facility] Work Phone: Comment on above: Patient Position: Sitting; Cuff Location : Left Arm; Cuff Size: Standard 01-30-2007 09:11-0400 Head Circumference 0 cm Adolfo Osborn [facility] Work Phone: 01-30-2007 09:11-0400 Head Occipital-frontal circumference 0 cm ARIEL Bradshaw [facility]; [facility] Work Phone: 01-30-2007 09:11-0400 Height 0 cm ARIEL Bradshaw [employer] [facility] Work Phone: 01-30-2007 09:11-0400 Pulse (Heart Rate) 74 /min ARIEL Bradshaw [facility] Work Phone: Comment on above: Pattern: Regular 01-30-2007 09:11-0400 Respiratory Rate 20 /min ARIEL Bradshaw [facility] Work Phone: Comment on above: Pattern: Unlabored 01-30-2007 09:11-0400 Weight 135.17 kg Adolfo Osborn [facility] Internal Medicine Work Phone: Encounters Encounter Date Encounter Type Care Provider Facility Start: 05-22-2025 ambulatory Adolfo Osborn Facility:[facility] Start: 05-08-2025 ambulatory Adolfo Osborn Facility:[facility] Start: 04-20-2025 End: 04-20-[address] Adolfo Osborn MD Work Phone: -Outpatient Breast Imaging Start: 04-20-2025 End: 04-20-[address] Adolfo Osborn MD -Outpatient Breast Imaging Work Phone: Start: 04-20-2025 End: 04-20-2025 ambulatory Adolfo Osborn Facility:[facility] Start: 03-04-2025 End: 05-04-2025 Orders Only Deja Hrnchar PERINATAL SOCIAL WORKER.STORAGE MANAGER Work Phone: Gynecology Start: 03-03-2025 End: 03-03-2025 Follow-up encounter Deja nchar PERINATAL SOCIAL WORKER.STORAGE MANAGER Work Phone: Gynecology Comment on above: Encounter for follow -up surveillance of endometrial cancer (Primary Dx); History of endometrial cancer; Vaginal itching Start: 03-03-2025 End: 03-03-2025 Patient encounter procedure Deja Hrnchar PERINATAL SOCIAL WORKER.STORAGE MANAGER Work Phone: Gynecology Start: 03-03-2025 End: 03-03-2025 ambulatory DEJA HRNCHAR Facility:[facility] Start: 09-02-2024 End: 09-02-2024 Patient encounter procedure Deja nchar PERINATAL SOCIAL WORKER.STORAGE MANAGER Work Phone: Gynecology Start: 09-02-2024 End: 09-02-2024 ambulatory Deja Hrnchar PERINATAL SOCIAL WORKER.STORAGE MANAGER Work Phone: Gynecology Comment on above: Post-operative state (Primary Dx) Start: 08-14-2024 End: 08-14-2024 Patient encounter procedure Sera Reddy MD Work Phone: Gynecology Start: 08-14-2024 End: 08-14-2024 ambulatory Sera Reddy MD Work Phone: Gynecology Comment on above: Post-operative state (Primary Dx) Start: 07-31-2024 End: 07-31-2024 Telephone encounter Deja Hrnchar PERINATAL SOCIAL WORKER.STORAGE MANAGER Work Phone: Gynecology Comment on above: Results Start: 07-28-2024 End: 07-28-2024 Telemedicine consultation with patient Deja Hrnchar PERINATAL SOCIAL WORKER.STORAGE MANAGER Work Phone: Gynecology Start: 07-28-2024 End: 07-28-2024 ambulatory Deja Hrnchar PERINATAL SOCIAL WORKER.STORAGE MANAGER Work Phone: Gynecology Comment on above: Post-operative state (Primary Dx) Start: 07-21-2024 End: 07-21-2024 Nursing evaluation of patient and report Margarita Dunn Research Coordinator Work Phone: Gynecology Oncology Comment on above: Endometrial cancer ( HCC) (Primary Dx) Start: 07-21-2024 End: 07-21-2024 ambulatory SERA REDDY Facility:[facility] Start: 07-18-2024 End: 07-18-2024 [facility] Facility:[facility] Start: 07-17-2024 End: 07-17-2024 [facility] Start: 07-17-2024 End: 07-17-2024 Subsequent hospital visit by physician Xr [facility] Radiology Comment on above: Pre-op testing [Z01. 818] Start: 07-17-2024 Encounter for other preprocedural examination [facility] Start: 07-17-2024 End: 07-17-2024 [place]mission to [place] [id number] Work Phone: Pre Anesthesia Start: 07-17-2024 End: 07-17-2024 Anesthesia consultation [place] [id number] Work Phone: Pre Anesthesia Comment on above: Pre-operative examin ation (Primary Dx); Incomplete left bundle branch block (LBBB); Essential hypertension, benign; Bilateral leg edema; MORGAN (obstructive sleep apnea); Morbid obesity (HCC) Start: 07-17-2024 End: 07-17-2024 Preprocedural examination done [place] [id number] Work Phone: [facility] Start: 07-17-2024 End: 07-17-2024 ambulatory [facility] Facility:[facility] Start: 07-16-2024 End: 07-16-2024 Telephone encounter Sera Reddy MD Work Phone: [facility] Comment on above: Schedule Surgery; Ap pointment Confirmation Start: 07-15-2024 End: 07-15-2024 ambulatory Shuttle Threader Onc Nurse Ca 4 Work Phone: Gynecology Oncology Comment on above: Educational circumst ances (Primary Dx) Start: 07-15-2024 End: 07-15-2024 Telemedicine consultation with patient Shuttle Threader Onc Nurse Ca 4 Work Phone: Gynecology Oncology Start: 07-10-2024 End: 07-10-2024 Patient encounter status Deja Nunez PERINATAL SOCIAL WORKER.STORAGE MANAGER Work Phone: [facility] Work Phone: Start: 07-10-2024 End: 07-10-2024 Preprocedural examination done Deja Nunez PERINATAL SOCIAL WORKER.STORAGE MANAGER Work Phone: [facility] Start: 07-10-2024 End: 07-10-2024 Patient encounter procedure Sera Reddy MD Work Phone: Gynecology Comment on above: Research (IRB#: [id number]/ ECHO Clinical Trial: Screening/ Enrollment) Start: 07-10-2024 End: 07-10-2024 ambulatory Sera Reddy MD Work Phone: Gynecology Comment on above: Endometrial cancer ( HCC) (Primary Dx); Endometrial adenocarcinoma (HCC) Start: 06-19-2024 End: 06-19-2024 ambulatory ARLETH LAU Facility:[facility] Start: 06-19-2024 End: 06-19-2024 Patient encounter procedure Arleth Lau PERINATAL SOCIAL WORKER.STORAGE MANAGER Work Phone: Gynecology Comment on above: Thickened endometriu m (Primary Dx); Screening for malignant neoplasm of cervix Start: 05-21-2024 End: 05-21-2024 Telephone encounter Hunter Her MD Work Phone: OB/Gynecology Comment on above: Results Start: 05-15-2024 End: 05-15-2024 ambulatory HUNTER HER OB/Gynecology Start: 05-15-2024 End: 05-15-2024 Patient encounter procedure Whi Tech 1 Deputy Building Guard [employer] OB/Gynecology Start: 05-13-2024 End: 05-13-2024 Telephone encounter Hunter Her MD Work Phone: OB/Gynecology Comment on above: Received Outside Med ical Records Start: 05-08-2024 End: 05-08-2024 ambulatory HUNTER HER Facility:[facility] Start: 05-08-2024 End: 05-08-2024 Patient encounter procedure Hunter Her MD Work Phone: OB/Gynecology Comment on above: Encounter for screen ing for malignant neoplasm of cervix (Primary Dx); Postmenopausal bleeding Start: 03-08-2023 End: 03-08-2023 Patient encounter procedure Adolfo Osborn MD Work Phone: [facility] Start: 09-04-2022 ambulatory Adolfo Osborn MD [facility] Internal Med Start: 08-16-2022 End: 11-07-2022 Phone Encounter Adolfo Osborn MD Work Phone: [facility] Start: 07-25-2022 End: 07-26-2022 Office outpatient visit 40 minutes Adolfo Osborn MD Work Phone: [facility] Start: 07-25-2022 End: 07-26-2022 Patient encounter procedure Adolfo Osborn MD Work Phone: [facility]; [facility] Work Phone: Comment on above: Dr. Sandoval pap1-18 and mammogram 2013, colonoscopy 07/08 polyp recheck 5 year, Start: 04-06-2022 End: 04-06-2022 Emergency department patient visit Juan Carlos Rainey [facility] Start: 11-22-2021 Image Encounter Adolfo Osborn Work Phone: zz DO NOT USE - [employer] Only Start: 11-07-2021 End: 11-07-2021 Office outpatient visit 40 minutes Adolfo Osborn MD Work Phone: [facility] Start: 11-07-2021 End: 11-07-2021 Patient encounter procedure Adolfo Osborn MD Work Phone: [facility]; [facility] Work Phone: Comment on above: Dr. Lori mcelroy-18 and mammogram 2013, colonoscopy 07/08 polyp recheck 5 year, Start: 04-15-2021 End: 05-01-2021 Office outpatient visit 25 minutes Adolfo Osborn MD Work Phone: [facility] Start: 04-12-2021 End: 04-12-2021 Emergency department patient visit Manny Wing [facility] Start: 01-18-2021 End: 01-19-2021 Emergency department patient visit Mendy Salazar [facility] Emergency 05 Start: 09-17-2020 End: 09-17-2020 Office outpatient visit 25 minutes Adolfo Conde Internal Medicine Start: 09-17-2020 End: 09-17-2020 Patient encounter procedure Adolfo Osborn MD Work Phone: [facility] Start: 10-16-2019 End: 10-16-2019 Office outpatient visit 40 minutes Adolfo Osborn [facility] Start: 10-16-2019 End: 10-16-2019 Patient encounter procedure Adolfo Osborn MD Work Phone: [facility] Start: 10-02-2019 End: 10-02-2019 Phone Encounter Adolfo Osborn [facility] Start: 04-14-2019 End: 04-29-2019 Office outpatient visit 40 minutes Adolfo Osborn [facility] Start: 04-14-2019 End: 04-29-2019 Patient encounter procedure Adolfo Osborn MD Work Phone: [facility] Start: 04-14-2019 [facility] Start: 12-02-2018 End: 12-02-2018 Lab Order Adolfo Osborn [facility] Start: 09-03-2018 End: 09-03-2018 Office outpatient visit 15 minutes Adolfo Osborn [facility] Start: 09-03-2018 End: 09-03-2018 Patient encounter procedure Adolfo Osborn MD Work Phone: [facility] Start: 11-02-2017 End: 11-02-2017 Office outpatient visit 10 minutes Adolfo Osborn [facility] Start: 09-20-2017 End: 09-20-2017 Office outpatient visit 40 minutes Adolfo Osborn [facility] Start: 09-20-2017 End: 09-20-2017 Patient encounter procedure Adolfo Osborn MD Work Phone: [facility] Start: 09-20-2017 End: 09-20-2017 Patient encounter status Adolfo Osborn MD Work Phone: [facility] Start: 08-30-2017 End: 08-30-2017 Phone Encounter Adolfo Osborn [facility] Start: 08-23-2017 End: 08-23-2017 Lab Order Adolfo Osborn [facility] Start: 04-05-2017 End: 04-05-2017 Phone Encounter Adolfo Osborn [facility] Start: 02-09-2017 End: 02-11-2017 Office outpatient visit 25 minutes Adolfo Osborn [facility] Start: 02-02-2017 End: 02-02-2017 Office outpatient new 10 minutes Adolfo Osborn [facility] Start: 02-02-2017 End: 02-02-2017 Patient encounter procedure Adolfo Osborn MD Work Phone: [facility] Start: 12-26-2016 End: 12-26-2016 Lab Order Adolfo Osborn [facility] Start: 07-24-2016 End: 07-27-2016 Patient encounter procedure Adolfo Osborn MD Work Phone: [facility] Start: 07-24-2016 End: 07-27-2016 Periodic preventive med est patient 40-64yrs Adolfo Osborn [facility] Start: 08-12-2015 End: 08-12-2015 Phone Encounter Adolfo Osborn [facility] Start: 08-10-2015 End: 08-10-2015 Office outpatient visit 25 minutes Adolfo Osborn [facility] Start: 08-10-2015 End: 08-10-2015 Patient encounter status Adolfo Osborn MD Work Phone: [facility] Start: 02-09-2015 End: 02-09-2015 Lab Order Adolfo Osborn [facility] Start: 05-01-2014 End: 05-01-2014 Office outpatient visit 25 minutes Adolfo Osborn [facility] Start: 05-01-2014 End: 05-01-2014 Patient encounter status Adolfo Osborn MD Work Phone: [facility] Start: 01-22-2014 End: 01-22-2014 Patient encounter procedure Adolfo Osborn [facility] Start: 01-22-2014 End: 01-22-2014 Patient encounter status Adolfo Osborn MD Work Phone: [facility] Start: 02-12-2013 End: 02-12-2013 Phone Encounter Adolfo Osborn [facility] Start: 02-07-2013 End: 02-13-2013 Patient encounter procedure Adolfo Osborn [facility] Start: 02-07-2013 End: 02-13-2013 Patient encounter status Adolfo Osborn MD Work Phone: [facility] Start: 07-15-2012 End: 07-15-2012 Annotation/Addendum Adolfo Osborn [facility] Start: 07-11-2012 End: 07-11-2012 Patient encounter procedure Adolfo Osborn [facility] Start: 06-13-2012 End: 06-13-2012 Patient encounter procedure Adolfo Osborn [facility] Start: 06-13-2012 End: 06-13-2012 Patient encounter status Adolfo Osborn MD Work Phone: [facility] Start: 02-19-2012 End: 02-19-2012 Annotation/Addendum Adolfo Osborn [facility] Start: 02-19-2012 End: 02-19-2012 Patient encounter procedure Adolfo Osborn [facility] Start: 02-19-2012 End: 02-19-2012 Patient encounter status Adolfo Osborn MD Work Phone: [facility] Start: 02-02-2012 End: 02-02-2012 Office outpatient visit 25 minutes Adolfo Osborn [facility] Start: 01-26-2012 End: 01-26-2012 Office outpatient visit 25 minutes Adolfo Osborn [facility] Start: 01-26-2012 End: 01-26-2012 Preprocedural examination done Adolfo Osborn MD Work Phone: [facility] Start: 12-29-2011 End: 12-29-2011 Phone Encounter Adolfo Osborn [facility] Start: 12-07-2011 End: 12-07-2011 Phone Encounter Adolfo Osborn [facility] Start: 11-21-2011 End: 11-21-2011 Patient encounter procedure Adolfo Osborn [facility] Start: 11-21-2011 End: 11-21-2011 Patient encounter status Adolfo Osborn MD Work Phone: [facility] Start: 02-23-2011 End: 02-23-2011 Patient encounter procedure Adolfo Osborn [facility] Start: 02-23-2011 End: 02-23-2011 Patient encounter status Adolfo Osborn MD Work Phone: [facility] Start: 01-16-2011 End: 01-16-2011 Office outpatient visit 25 minutes Adolfo Osborn [facility] Start: 02-10-2010 End: 02-10-2010 Patient encounter procedure Adolfo Osborn [facility] Start: 01-04-2010 End: 01-04-2010 Patient encounter procedure Adolfo Osborn [facility] Start: 06-23-2009 End: 06-23-2009 Patient encounter procedure Adolfo Osborn [facility] Start: 01-05-2009 End: 01-05-2009 Patient encounter procedure Adolfo Osborn [facility] Start: 01-05-2009 End: 01-05-2009 Patient encounter status Adolfo Osborn MD Work Phone: [facility] Start: 10-09-2008 End: 10-09-2008 Patient encounter procedure Adolfo Osborn [facility] Start: 10-09-2008 End: 10-09-2008 Patient encounter status Adolfo Osborn MD Work Phone: [facility] Start: 08-08-2007 End: 08-08-2007 Patient encounter procedure Adolfo Osborn [facility] Start: 01-30-2007 End: 01-30-2007 Patient encounter procedure Adolfo Osborn [facility] Start: 11-20-2006 End: 11-20-2006 Historical Summary Adolfo Osborn [facility] Start: 11-05-2006 End: 11-05-2006 Historical Summary Adolfo Boneren [facility] Start: 11-05-2006 End: 11-05-2006 Refill Request Adolfo Osborn [facility] Patient encounter procedure ARILE Bradshaw LPN [facility]; [facility] Work Phone: Comment on above: Dr. Sandoval pap1-18 and mammogram 2013, colonoscopy 11 polyp recheck 5 year, Patient encounter status ARIEL MCCLOUD [facility]; [facility] Work Phone: Comment on above: LUISP 1-18 Dr. Barlow er pap 1-18, colonoscopy 11/12 polyp recheck 5 years needs to set up for scope and pap. she will get BD and ammo soone Patient encounter status Dayanna Menchaca AUTOMOTIVE HEAVY MECHANIC [facility]; [facility] Work Phone: Comment on above: STORMY 1- Dr. Barlow er pap 1-18, colonoscopy 11/12 polyp recheck 5 years needs to set up for scope and pap. she will get BD and ammo soone Patient encounter status Wanda Kwame LP N [facility]; [facility] Work Phone: Comment on above: STORMY 1- Dr. Barlow er pap 1-18, colonoscopy 11/12 polyp recheck 5 years needs to set up for scope and pap. she will get BD and ammo soone End: 05-01-2014 Preprocedural examination done Bus Girl [facility] Work Phone: Procedures Date Procedure Procedure Detail Performing Clinician Start: 04-20-2025 Screening mammography D r. Adolfo Osborn MD Work Phone: Start: 07-17-2024 Radiologic exam ches t 2 views Deja Nunez APRN.STORAGE MANAGER Work Phone: Start: 07-17-2024 Antibody screen ADOLFO GODOY Comment on above: Order Comment: Speci men Type: BLOOD SPECIMEN Ordering Facility: [facility] Address: [address] [place] [address] Performed By: #### T [id number], [id number] #### [facility] [id number] [address] [place] [address] [place] Start: 06-19-2024 ENDOMETRIAL BIOPSY PROCEDURE (W NOTE) Arleth Lau APRN.STORAGE MANAGER Work Phone: Start: 05-15-2024 Us pelvic nonobstetr ic real-time image complete Hunter Her MD Work Phone: Start: 04-15-2021 End: 04-15-2021 Venous Duplex US, Unilateral Comments: See Note; NOTES: [facility] [address] [place] [address] Venous Duplex US, Unilateral 04/15/21 1442 MR#: [id number] Acct: [id number] Name: SANTA RAHMAN Rep #: [id number] : 1955 65 From: Lauri Damico MD Attending Dr: Dr. Adolfo Osborn MD Status: REG CLI Ordering Dr: Adolfo Osborn MD Date: 04/15/21 Location: [facility] Sex: F C Admitted: Reason For Study: SWELLING Procedure LEFT Exam performed in department. GSV is normal. This is a venous duplex using B-mode, color CFV is compressible, spontaneous, phasic, flow and spectral Doppler. competent, and demonstrates normal Left CFV and POPV doppler taken in augmentation. transverse due to pt. body habitus. FV is compressible, spontaneous, phasic, A preliminary report was called and/or faxed competent and demonstrates normal to DR OSBORN. augmentation. POP V is compressible, spontaneous, phasic, competent and demonstrates normal augmentation. T/P Trunk is compressible. PTV is compressible. LT PerV is compressible. VL/Venous Duplex US, Unilateral Interpretation Summary There is no evidence of left lower extremity deep vein thrombosis. Left great saphenous vein appears patent and compressible segmentally. Technically challenging examination secondary to patient body habitus _ Ordering Physician: Adolfo Osborn Referring Physician: Adolfo Osborn Performed By: Judie Yanes, RDCS, RVT 04/15/211655 Date Lauri Damico MD CC: Dr. Adolfo Osborn MD Date Dictated: 04/15/21 1442 Date Transcribed: 04/15/21 1656 Tobacco Prizer: Signed Adolfo Osborn MD Work Phone: Start: 09-17-2020 End: 09-17-2020 Chest PA and Lateral Comments: See Note; NOTES: [facility] Radiology [address] [place] [address] Chest PA and Lateral MR#: [id number] Acct: [id number] Name: SANTA RAHMAN Rep #: [id number] : 1955 F 64 From: Porter abdi MD PCP: Dr. Adolfo Osborn MD Status: DEP AMB Study: Chest PA and Lateral Date of Exam: 09/17/20 Exam# [id number] Ordering Dr: Adolfo Osborn MD STUDY: X-RAY CHEST REASON FOR EXAM: Female, 64 years old. COUGH TECHNIQUE: PA and lateral views of the chest. COMPARISON: Comparison is made with prior examination dated 02/14/2012. FINDINGS: The lungs are clear and expanded. There is no demonstrated pleural abnormality. There is mild cardiac enlargement. Normal mediastinum and phoebe. Normal visualized pulmonary arteries. There is atherosclerotic calcification of the aortic arch with tortuosity. There are diffuse degenerative changes of the visualized thoracic spine. Normal visualized ribs, clavicles, and shoulders. There is no demonstrated abnormality of the visualized soft tissue structures of the upper abdomen. RAD/Chest PA and Lateral IMPRESSION: Mild cardiomegaly. The lungs are clear. Electronically Signed: Porter Garcias MD at 14:25 EST , Service support , CC: Dr. Adolfo Osborn MD Tobacco Prizer: Signed Adolfo Osborn Work Phone: Start: 10-15-2017 End: 10-15-2017 TXT - Blood Flow Screening Comments: See Note; NOTES: [facility] Cardiovascular Services [address] [place] [address] 10/12/17 0819 MR#: [id number] Acct: [id number] Name: SANTA RAHMAN Rep #: [id number] : 1955 61 From: Spike Mclean MD Attending Dr: Adolfo Osborn MD Status: REG REF Ordering Dr: Date: 10/15/17 Location: [facility] Sex: F C Admitted: Reason For Study: Blood flow screening Carotid Duplex Ultrasound Abdominal Aorta The right maximum ICA velocity is 82.7/21.7 cm/s.The maximal outside diameter of the proximal The left maximum ICA velocity is 76.0/33.0 cm/s. aorta measures 1.9 cm in the longitudinal axis. The right ECA velocity is less than 125 cm/s. The maximal outside diameter of the proximal The left ECA velocity is less than 125 cm/s. aorta measures 1.8 x 1.8 cm in the cross- There is no plaque formation noted on the right sectional axis. side. There is no plaque formation noted on the left side. Ankle Brachial Index The right ankle/ brachial index is 1.1. The left ankle/ brachial index is 1.2. Medical History and Assessment The client presents with a history of high blood pressure. The heart rate is 60 beats per minute. The heart rhythm is regular. The right blood pressure is 158/90. The left blood pressure is 138/90. The assessment was performed by Shawn Miranda RVT. Interpretation Summary Normal carotid artery screening (0 to 15% narrowing). Normal aortic ultrasound exam. The ankle/brachial index is normal (1.0 or greater). .rdering Physician: Adolfo Osborn M.D Performed By: Mitali Miranda RVT 10/15/17738 Date Spike Mclean MD CC: Adolfo Osborn MD Date Dictated: 10/12/17818 Date Transcribed: 10/15/17738 Tobacco Prizer: Signed Adolfo Osborn Start: 02-09-2017 End: 02-09-2017 Brain/Head W/WO Contrast Comments: See Note; NOTES: [facility] Imaging Services [address] [place] [id number] Verdana 4d Brain/Head W/WO Contrast MR#: [id number] Acct: [id number] Name: SANTA RAHMAN Rep #: [id number] : 1955 F 61 From: Shobha Torrez MD PCP: Adolfo Osborn MD Status: REG CLI Study: Brain/Head W/WO Contrast Date of Exam: 02/09/17 Exam# [id number] Ordering Dr: Margarita Portillo DO STUDY: CT BRAIN WITH AND WITHOUT CONTRAST REASON FOR EXAM: Female, 61 years old. Headaches RADIATION DOSAGE (If Supplied By Facility): CTDIvol = ( 44.99 ) mGy, DLP = ( 1659.71 ) mGycm TECHNIQUE: Transaxial CT imaging of the brain was performed pre and post contrast administration. The examination was performed with intravenous administration of 50 ml of Isovue 370 contrast material. Individualized dose optimization techniques were used for this CT. COMPARISON: None. FINDINGS: Normal soft tissue structures. Normal calvarium. Normal size ventricles and extra-axial spaces for the patient's age. Normal white matter tracts of the cerebral hemispheres. Normal basal ganglia and thalami. Normal brainstem. Normal cerebellum. There is a 1.2 cm hyperdense focus in the right occipital lobe on image 23 of the noncontrast images. This does not show significant enhancement after contrast. There are no findings of an acute ischemic infarction. Normal visualized paranasal sinuses. CT/Brain/Head W/WO Contrast IMPRESSION: There is a 1.2 cm vague hyperdense focus in the right occipital lobe seen on the precontrast images. This does not appear to enhance significantly. This may represent a cavernous angioma or other vascular malformation. There is no evidence of surrounding mass effect. An MRI with and without contrast is recommended for further characterization. Electronically Signed: Shobha Torrez MD at 16:36 EDT Tel [phone], Service support , CC: Adolfo Osborn MD; Margarita Portillo DO Tobacco Prizer: Signed Margarita Portillo Work Phone: Start: 02-09-2017 End: 02-09-2017 L/S Spine Min 4 Views Comments: See Note; NOTES: [facility] Imaging Services [address] [place] [address] Verdana 4d L/S Spine Min 4 Views MR#: [id number] Acct: [id number] Name: SANTA RAHMAN Rep #: [id number] : 1955 F 61 From: Shobha Torrez MD PCP: Adolfo Osborn MD Status: REG CLI Study: L/S Spine Min 4 Views Date of Exam: 02/09/17 Exam# [id number] Ordering Dr: Margarita Portillo DO STUDY: X-RAY - LUMBAR SPINE REASON FOR EXAM: Female, 61 years old. Lower extremity numbness TECHNIQUE: Five view(s) of the lumbar spine were obtained. COMPARISON: None FINDINGS: Normal lumbar lordosis. There is no substantial scoliosis. There is a normal alignment of the vertebrae. Osteophytes are scattered throughout the lower thoracic spine and lumbar spine. There is marked disc space narrowing at L5-S1. There is mild disc space narrowing at L4-5. There is atherosclerotic calcification of the abdominal aorta without a demonstrated aneurysm. RAD/L/S Spine Min 4 Views IMPRESSION: There are marked degenerative disc changes at L5-S1. There are mild degenerative disc changes at L4-5. Electronically Signed: Shobha Torrez MD at 17:17 EDT Tel [phone], Service support , CC: Adolfo Osborn MD; Margarita Portillo DO Tobacco Prizer: Signed Margarita Portillo Work Phone: Start: 08-10-2015 End: 08-10-2015 Ecg routine ecg w/least 12 lds w/i&r [MEASUREMENTS ANALYSIS] Date of Test: 08/10/2015 08:55:37; Heart Rate: 61; IL Interval: 222; QRS: 110; QT Interval: 420; Corrected QT Interval (QTc): 421; P Wave [place]: 35; QRS Wave [place]: 2; T Wave [place]: 15; Blood Pressure: 126/72 [ECG DIAGNOSTIC STATEMENTS] Date of Test: 08/10/2015 08:55:37; Summary: Sinus Rhythm -First degree A-V block Sukh = 222-Nonspecific QRS widening. BORDERLINE Adolfo Osborn Work Phone: Start: 01-22-2014 End: 01-22-2014 Ecg routine ecg w/least 12 lds w/i&r [MEASUREMENTS ANALYSIS] Date of Test: 01/22/2014 12:57:53; Heart Rate: 57; IL Interval: 224; QRS: 111; QT Interval: 436; Corrected QT Interval (QTc): 431; P Wave [place]: 35; QRS Wave [place]: 2; T Wave [place]: -1; Blood Pressure: 126/82 [ECG DIAGNOSTIC STATEMENTS] Date of Test: 01/22/2014 12:57:53; Summary: Sinus Bradycardia -First degree A-V block Sukh = 224BORDERLINE RHYTHM Adolfo Osborn Work Phone: Comment on above: see scanned document of test done to see results reviewed today with patient D/C 04/04 ARIELSEBASTIAN Bradshaw D/C 04/04 ARIEL Augustine D/C 04/04 ARIEL Augustine D/C 04/04 Wanda Puente D/C 04/04 ARIEL Augustine AUTOMOTIVE HEAVY MECHANIC D/C 04/04 Dayanna Jangjesenia LP N D/C 04/04 Wanda Kwame L PN Plan of Treatment Date Care Activity Detail Author Start: 07-17-2027 Diabetes Screening Diabetes Screenin g [facility] Start: 09-03-2025 End: 09-03-2025 Follow-up encounter Gynecology Comment on above: 6 MONTH FOLLOW UP Start: 04-27-2025 Influenza vaccination Influenza Vacc ine (#1) [facility] Start: 03-03-2025 End: 03-03-2025 Follow-up encounter 03/03/2025 10:30 AM EDT Visit (SP) Office Gynecology [address] [place] [address] Deja Nunez, CATERINA.STORAGE MANAGER [address] [place] [address] 6 MONTH FOLLOW UP Gynecology Comment on above: 6 MONTH FOLLOW UP Start: 09-02-2024 End: 09-02-2024 ambulatory 09/02/2024 11:30 AM EST Visit (SP) Office Gynecology [address] [place] [address] Deja Nunez, CATERINA.STORAGE MANAGER [address] [place] [address] POST OP Gynecology Comment on above: POST OP Start: 08-27-2024 Advance Directive Discussion Advance Directive Discussion [facility] Start: 08-14-2024 End: 08-14-2024 ambulatory 08/14/2024 10:45 AM EST Visit (SP) Office Gynecology [address] [place] [address] Sera Reddy MD [address] [place] [address] POST OP Gynecology Comment on above: POST OP Start: 07-21-2024 End: 07-21-2024 Admission to same day surgery center 07/21/2024 7:30 AM EST - 07/21/2024 11:00 AM EST Surgery Admitting [address] [place] [address] Sera Reddy MD [address] [place] [address] LAPAROSCOPIC HYSTERECTOMY TOTAL FOR UTERUS 250 G OR LESS W/REMOVAL TUBE(S) AND/OR OVARY(S) Admitting Comment on above: LAPAROSCOPIC HYSTERE CTOMY TOTAL FOR UTERUS 250 G OR LESS W/REMOVAL TUBE(S) AND/OR OVARY(S) Start: 07-21-2024 Subsequent hospital visit by physician 07/21/2024 7:30 AM EST Hospital Encounter Admitting [address] [place] [address] Sera Reddy MD [address] [place] [address] Endometrial cancer (HCC) [C54.1] Admitting Comment on above: Endometrial cancer ( HCC) [C54.1] Start: 07-21-2024 End: 07-21-2024 Intraop sentinel lymph node id w/dye injection [facility] Start: 07-21-2024 End: 07-21-2024 Laps total hysterect 250 gm/< w/rmvl tube/ovary [facility] Start: 07-17-2024 End: 07-17-2024 ambulatory 07/17/2024 1:45 PM EST Results Only [facility] [address] [place] [address] [facility] Comment on above: PRE OP Start: 07-17-2024 End: 07-17-2024 Patient encounter procedure Radiology Comment on above: PRE OP Start: 07-17-2024 End: 07-17-2024 Anesthesia consultation 07/17/2024 12:40 PM EST PAT Pre Anesthesia [address] [place] [address] 1, [place] [place] [address] PRE OP~ PLEASE COMPLETE EKG Pre Anesthesia Comment on above: PRE OP~ PLEASE COMPL ETE EKG Start: 07-15-2024 End: 07-15-2024 ambulatory 07/15/2024 10:30 AM EST [facility] Gynecology Oncology [address] [place] [address] 4, [place] [address] [place] [address] PRE OP TEACHING Gynecology Oncology Comment on above: PRE OP TEACHING Start: 07-10-2024 End: 10-09-2024 CBC panel - Blood by Automated count COMPLETE BLOOD COUNT Lab Routine Pre-op testing Expected: 07/10/2024, Expires: 10/09/2024 [facility] Work Phone: Comment on above: Expected: 07/10/2024 , Expires: 10/09/2024 Start: 07-10-2024 End: 10-09-2024 Comprehensive metabolic 2000 panel - Serum or Plasma COMPREHENSIVE METABOLIC PANEL Lab Routine Pre-op testing Expected: 07/10/2024, Expires: 10/09/2024 [facility] Comment on above: Expected: 07/10/2024 , Expires: 10/09/2024 Start: 07-10-2024 End: 10-09-2024 TYPE AND SCREEN,30 DAY TYPE AND SCREEN,30 DAY Blood Bank Routine Pre-op testing Expected: 07/10/2024, Expires: 10/09/2024 [facility] Comment on above: Expected: 07/10/2024 , Expires: 10/09/2024 Start: 07-08-2024 End: 10-07-2024 Cancer Ag 125 [Units/volume] in Serum or Plasma CA 125 Lab Routine Endometrial cancer (HCC) Expected: 07/08/2024, Expires: 10/07/2024 [facility] Work Phone: Comment on above: Expected: 07/08/2024 , Expires: 10/07/2024 Start: 07-07-2024 End: 07-07-2024 ambulatory 07/07/2024 12:30 PM [facility] Gynecology [address] [place] [address] Arleth Lau, PERINATAL SOCIAL WORKER.STORAGE MANAGER [address] [place] [address] 2 WEEKS VV Gynecology Comment on above: 2 WEEKS VV Start: 05-15-2024 End: 05-15-2024 ambulatory 05/15/2024 10:30 AM EDT Procedure OB/Gynecology [address] [place] [address] Postmenopausal bleeding [N95.0] OB/Gynecology Comment on above: Postmenopausal bleed ing [N95.0] Start: 05-13-2024 End: 05-13-2024 ambulatory 05/13/2024 9:00 AM EDT Procedure OB/Gynecology [address] [facility] [place] [address] Postmenopausal bleeding [N95.0] OB/Gynecology Comment on above: Postmenopausal bleed ing [N95.0] Start: 05-08-2024 End: 05-08-2025 US Pelvis PELVIC US [facility] Anc Imaging Routine Postmenopausal bleeding Expected: 05/08/2024, Expires: 05/08/2025 [facility] Work Phone: Comment on above: Expected: 05/08/2024 , Expires: 05/08/2025 Start: 04-27-2024 Covid-19 Vaccine ( season) Covid-19 Vaccine ( season) [facility] Start: 04-27-2024 Covid-19 Vaccine ( season) Covid-19 Vaccine ( season) [facility] Start: 04-27-2024 Covid-19 Vaccine ( season) Covid-19 Vaccine ( season) [facility] Start: 04-27-2024 Influenza vaccination Influenza Vacc ine (#1) [facility] Start: 08-27-2023 Advance Directive Discussion Advance Directive Discussion [facility] Start: 03-08-2023 Basic metabolic pane l calcium total METABOLIC PANEL, BASIC (78234) [facility] Work Phone: Start: 07-25-2022 Procedure Education Eprescribe d prescriptions (G8553) [facility] Work Phone: Start: 11-07-2021 Procedure Education Eprescribe d prescriptions (G8553) [facility]; [facility] Work Phone: Start: 11-07-2021 25 hydroxy includes fractions if performed CALCIFIDIOL (09601) VIT D 25 [facility]; [facility] Work Phone: Start: 11-07-2021 Urnls dip stick/tabl et reagent auto microscopy URINALYSIS, W/ MICRO (68825) [facility]; [facility] Work Phone: Start: 11-07-2021 Comprehensive metabo lic panel METABOLIC PANEL, COMPREHENSIVE (99772) [facility]; [facility] Work Phone: Start: 11-07-2021 Lipid panel LIPID PANEL (03798) [facility]; [facility] Work Phone: Start: 11-07-2021 Blood count manual c ell count each CBC with auto diff (27044) [facility]; [facility] Work Phone: Start: 2021 Pneumococcal Vaccine : 65+ (1 of 1 - PCV) Pneumococcal Vaccine: 65+ (1 of 1 - PCV) [facility] Start: 2021 Screening for osteoporosis Bone Density Screening [facility] Start: 09-27-2021 Medicare Annual Wellness Visit Medicare Annual Wellness Visit [facility] Start: 09-17-2020 Procedure Education Eprescribe d prescriptions (G8553) [facility]; [facility] Work Phone: Start: 09-17-2020 Assay of thyroid stimulating hormone tsh TSH (73476) [facility]; [facility] Work Phone: Start: 09-17-2020 TSH Qn TSH (61675) [facility]; [facility] Work Phone: Start: 09-17-2020 Urine albumin quantitative MICROALBUMIN: CREATININE RATIO (79502) AND (34706) [facility]; [facility] Work Phone: Start: 09-17-2020 Lipid panel LIPID PANEL (69334) [facility]; [facility] Work Phone: Start: 09-17-2020 Comprehensive metabo lic panel METABOLIC PANEL, COMPREHENSIVE (36506) [facility]; [facility] Work Phone: Start: 09-17-2020 Blood count manual c ell count each CBC with auto diff (18041) [facility]; [facility] Work Phone: Start: 10-16-2019 Urnls dip stick/tabl et reagent auto microscopy URINALYSIS, W/ MICRO (91786) [facility] Work Phone: Start: 10-16-2019 Comprehensive metabo lic panel METABOLIC PANEL, COMPREHENSIVE (01141) [facility] Work Phone: Start: 10-16-2019 Lipid panel LIPID PANEL (01514) [facility] Work Phone: Start: 12-02-2018 Blood count manual c ell count each CBC WITH MANUAL DIFF (50240) [facility] Work Phone: Start: 12-02-2018 Urine albumin quantitative MICROALBUMIN: CREATININE RATIO (86598) AND (04931) [facility] Work Phone: Start: 12-02-2018 Urinalysis qual/semiquant except immunoassays URINALYSIS (65991) [facility] Work Phone: Start: 12-02-2018 Comprehensive metabo lic panel Metabolic Panel, Comprehensive (43824) [facility] Work Phone: Start: 09-03-2018 Basic metabolic pane l calcium total Metabolic Panel, Basic (94184) [facility] Work Phone: Start: 09-20-2017 Procedure Education Eprescribe d prescriptions (G8553) [facility] Work Phone: Start: 09-20-2017 Comprehensive metabo lic panel METABOLIC PANEL, COMPREHENSIVE (97879) [facility] Work Phone: Start: 09-20-2017 Lipoprotein blood qu an numbers & subclasses LIPOPROTEIN, BLD, BY NMR (82623) [facility]; [facility] Work Phone: Start: 09-20-2017 Protein mass conc LIPOPROTEIN, BLD, BY NMR (40347) [facility] Work Phone: Start: 09-20-2017 25 hydroxy includes fractions if performed CALCIFIDIOL (16802) VIT D 25 [facility] Work Phone: Start: 08-23-2017 Blood count manual c ell count each CBC WITH MANUAL DIFF (55361) [facility] Work Phone: Start: 02-09-2017 Procedure Education Eprescribe d prescriptions (G8553) [facility] Work Phone: Start: 2016 RSV Vaccine (1 - 1-d ose 60+ series) RSV Vaccine (1 - 1-dose 60+ series) [facility] Start: 2016 RSV Vaccine (1 - Ris k 60-74 years 1-dose series) RSV Vaccine (1 - Risk 60-74 years 1-dose series) [facility] Start: 07-24-2016 25 hydroxy includes fractions if performed CALCIFIDIOL (49953) VIT D 25 [facility] Work Phone: Comment on above: recheck 8 weeks Start: 07-24-2016 Patient Education Mammogram *: gynecological health [facility] Work Phone: Start: 07-24-2016 Provider Instruction s for Treatment *Weight Loss Discussion [facility] Work Phone: Start: 08-12-2015 Calcium ionized CALCIUM, IONIZ ED (39681) [facility] Work Phone: Start: 08-12-2015 Assay of parathormone PARATHORMONE ( 57730) [facility] Work Phone: Start: 08-10-2015 Procedure Education Eprescribe d prescriptions (G8553) [facility] Work Phone: Start: 02-09-2015 Comprehensive metabo lic panel Metabolic Panel, Comprehensive (02992) [facility] Work Phone: Start: 02-09-2015 Lipid panel Lipid Panel (39030) [facility] Work Phone: Start: 02-09-2015 Assay of thyroid stimulating hormone tsh TSH (15875) [facility]; [facility] Work Phone: Start: 02-09-2015 Thyrotropin Qn TSH (92881) [facility] Work Phone: Start: 02-09-2015 Blood count manual c ell count each CBC WITH MANUAL DIFF (41566) [facility] Work Phone: Start: 01-22-2014 Comprehensive metabo lic panel METABOLIC PANEL, COMPREHENSIVE (81501) [facility] Work Phone: Start: 01-22-2014 Lipid panel LIPID PANEL (32515) [facility] Work Phone: Start: 01-22-2014 Blood count manual c ell count each CBC WITH MANUAL DIFF (88098) [facility] Work Phone: Start: 04-27-2013 [facility] panel [facility] PANEL (68130) [facility] Start: 02-07-2013 Hemoglobin A1c/Hemoglobin.total mass fraction (Bld) HgA1C , Office (57147) [facility] Work Phone: Start: 02-07-2013 Hemoglobin glycosyla humberto a1c HgA1C , Office (05433) [facility]; [facility] Work Phone: Start: 11-12-2012 Lipid panel Lipid Panel (28493) [facility] Work Phone: Start: 07-11-2012 Patient Education Fungal Infec tion of a Nail (Onychomycosis) *: fungal infection [facility] Work Phone: Start: 07-11-2012 Comprehensive metabo lic panel METABOLIC PANEL, COMPREHENSIVE (39396) [facility] Work Phone: Comment on above: in six months (appro ximately) Start: 07-11-2012 Lipid panel LIPID PANEL (25194) [facility] Work Phone: Comment on above: in six months (appro ximately) Start: 07-11-2012 Blood count manual c ell count each CBC WITH MANUAL DIFF (07318) [facility] Work Phone: Comment on above: in six months ( ximately) Start: 07-11-2012 Hepatic function panel HEPATIC FUNCTION PANEL (12025) [facility] Work Phone: Comment on above: 6 weeks Start: 06-13-2012 Patient Education High Blood P ressure (Essential Hypertension) *: cardiovascular health [facility] Work Phone: Start: 01-26-2012 Provider Instruction s for Treatment [facility] Work Phone: Start: 11-21-2011 Urine albumin quantitative MICROALBUMIN: CREATININE RATIO (84355) AND (26423) [facility] Work Phone: Start: 11-21-2011 Comprehensive metabo lic panel METABOLIC PANEL, COMPREHENSIVE (80210) [facility] Work Phone: Start: 11-21-2011 Lipid panel LIPID PANEL (48409) [facility] Work Phone: Start: 02-23-2011 Urine albumin quantitative MICROALBUMIN: CREATININE RATIO (57486) AND (08854) [facility] Work Phone: Start: 02-23-2011 Comprehensive metabo lic panel METABOLIC PANEL, COMPREHENSIVE (90717) [facility] Work Phone: Start: 02-23-2011 Lipid panel LIPID PANEL (46695) [facility] Work Phone: Start: 02-23-2011 Blood count manual c ell count each CBC WITH MANUAL DIFF (37401) [facility] Work Phone: Start: 01-16-2011 Provider Instruction s for Treatment [facility] Work Phone: Start: 01-04-2010 Basic metabolic pane l calcium total Metabolic Panel, Basic (56916) [facility] Work Phone: Comment on above: in six months (appro ximately) Start: 06-23-2009 Urine albumin quantitative MICROALBUMIN: CREATININE RATIO (36764) AND (44637) [facility] Work Phone: Start: 06-23-2009 Comprehensive metabo lic panel METABOLIC PANEL, COMPREHENSIVE (90545) [facility] Work Phone: Start: 06-23-2009 Lipid panel LIPID PANEL (31139) [facility] Work Phone: Start: 06-23-2009 Blood count manual c ell count each CBC WITH MANUAL DIFF (61941) [facility] Work Phone: Start: 01-05-2009 Urine albumin quantitative MICROALBUMIN: CREATININE RATIO (58853) AND (23042) [facility] Work Phone: Start: 01-05-2009 Basic metabolic pane l calcium total Metabolic Panel, Basic (90502) [facility] Work Phone: Comment on above: 2 weeks Start: 01-05-2009 Comprehensive metabo lic panel Metabolic Panel, Comprehensive (61889) [facility] Work Phone: Start: 01-05-2009 Lipid panel Lipid Panel (97726) [facility] Work Phone: Start: 10-09-2008 Provider Instruction s for Treatment Colon Cancer Screening [facility] Work Phone: Start: 10-09-2008 Assay of blood/uric acid Uric Acid Blood (14943) [facility] Work Phone: Start: 10-09-2008 Assay of thyroid stimulating hormone tsh TSH (15305) [facility]; [facility] Work Phone: Start: 10-09-2008 Thyrotropin Qn TSH (66379) [facility] Work Phone: Start: 10-09-2008 Urine albumin quantitative MICROALBUMIN: CREATININE RATIO (20762) AND (69425) [facility] Work Phone: Start: 10-09-2008 Comprehensive metabo lic panel METABOLIC PANEL, COMPREHENSIVE (83878) [facility] Work Phone: Start: 10-09-2008 Lipid panel LIPID PANEL (19135) [facility] Work Phone: Start: 10-09-2008 Blood count manual c ell count each CBC WITH MANUAL DIFF (69452) [facility] Work Phone: Start: 01-30-2007 Provider Instruction s for Treatment FOLLOW UP IN 6 MONTHS [facility] Work Phone: Start: 01-30-2007 Urnls dip stick/tabl et rgnt auto w/o microscopy URINALYSIS W/O MICRO (59690) [facility] Work Phone: Start: 01-30-2007 Comprehensive metabo lic panel METABOLIC PANEL, COMPREHENSIVE (74365) [facility] Work Phone: Start: 01-30-2007 Lipid panel LIPID PANEL (76493) [facility] Work Phone: Start: 01-30-2007 Blood count manual c ell count each CBC WITH MANUAL DIFF (91029) [facility] Work Phone: Start: 2006 Pneumococcal Vaccine : 50+ (1 of 1 - PCV) Pneumococcal Vaccine: 50+ (1 of 1 - PCV) [facility] Start: 2006 Shingrix Vaccine (1 of 2) Shingrix Vaccine (1 of 2) [facility] Start: 2001 Diabetes Screening Diabetes Screenin g [facility] Start: 2001 Lipid panel Lipid Screening [facility] Start: 2001 Screening for malign ant neoplasm of colon [facility] Start: 11-15-2000 Urine microalbumin profile DTaP,Tdap,Td Vaccine (1 - Tdap) [facility] Start: 1996 Screening for malign ant neoplasm of breast Mammogram Screening [facility] Start: 1975 Urine microalbumin profile DTaP,Tdap,Td Vaccine (1 - Tdap) [facility] Start: 1974 Annual PCP Team Director Of Religious Activities marian Disease Visit Annual PCP Team Chronic Disease Visit [facility] Start: 1974 Anxiety Screening Anxiety Screening [facility] Start: 1974 BP Controlled (<130/80) BP Controlle d (<130/80) [facility] Start: 1974 Depression Screening Depression Scre ening [facility] Start: 1974 Hepatitis C screening Hepatitis C Sc rodrick [facility] BACTERIAL VAGINOSIS NAAT BACTERIAL VAGINOSIS NAAT Lab Routine Vaginal itching 03/03/2025 10:30 AM EDT [facility] THANH/TRICHOMONAS NAAT THANH/TRICHOMONAS NAAT Lab Routine Vaginal itching 03/03/2025 10:30 AM EDT [facility] Work Phone: End: 07-10-2025 ECG COMPLETE ECG COMPLETE ECG Routine Pre-op testing 1 Occurrences starting 07/10/2024 until 07/10/2025 [facility] Comment on above: 1 Occurrences starti ng 07/10/2024 until 07/10/2025 PAP TEST PAP TEST Lab Rou cresencio Screening for malignant neoplasm of cervix 06/19/2024 10:28 AM EDT [facility] REFER FOR ADMIT INTERVIEW REFER FOR ADMIT INTERVIEW Procedures Routine Pre-op testing Ordered: 07/10/2024 [facility] Comment on above: Ordered: 07/10/2024 SURGICAL PATHOLOGY SURGICAL PATH OLOGY Lab Routine Thickened endometrium 06/19/2024 10:28 AM EDT [facility] Work Phone: End: 08-09-2025 XR Chest PA and Lateral XR CHEST 2V FRONTAL/LAT Radiology Routine Pre-op testing 1 Occurrences starting 07/10/2024 until 08/09/2025 [facility] Comment on above: 1 Occurrences starti ng 07/10/2024 until 08/09/2025 [facility] Work Phone: [facility] Work Phone: [facility] Work Phone: [facility] Work Phone: [facility] Work Phone: [facility] Work Phone: [facility] Work Phone: [facility] Work Phone: [facility] Work Phone: [facility] Work Phone: [facility] Work Phone: [facility] Work Phone: [facility] Work Phone: [facility] Work Phone: [facility] Work Phone: [facility] Work Phone: [facility] Work Phone: [facility] Work Phone: [facility]; [facility] Work Phone: [facility]; [facility] Work Phone: [facility]; [facility] Work Phone: Immunizations Immunization Date Immunization Notes Care Provider [facility] 10-05-2020 COVID-19 (Moderna) [facility]; [facility] Work Phone: 09-03-2020 COVID-19 (Moderna) [facility]; [facility] Work Phone: Payers Date Payer Category Payer Self-pay 2023 Private Health Insurance [id number] 2023 Unknown [id number] 2021 Medicare [id number] 2021 Medicare [id number] 2021 Medicare [id number] 2017 Unknown 2016 Unknown [id number] 2010 Private Health Insurance [id number] 1956 Unknown [id number] Unknown [id number] Unknown [id number] Unknown [id number] Unknown [id number] Unknown [id number] Unknown [id number] Unknown [id number] [id number] Unknown [id number] [id number] [id number] Social History Date Type Detail Facility Start: 05-08-2024 End: 07-15-2024 Alcohol Use Never smoker [facility] Work Phone: Comment on above: Occasional alcohol u se 1 QD Full-time, [employer] important walking now, [employer] . 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 Tobacco use: Never smoker. [facility] Work Phone: Tobacco smoking consumption unknown [facility] Tobacco use: Tobacco use: [facility]; [facility] Work Phone: Start: 02-09-2017 End: 05-08-2024 Tobacco smoking status NHIS Never smoked tobacco [facility] Start: 05-08-2024 Tobacco use and exposure Smokeless tobacco non-user [facility] Start: 05-08-2024 End: 03-03-2025 Alcoholic beverage intake Ex-drinker (finding) [facility] Start: 05-08-2024 End: 07-15-2024 Tobacco use panel [facility] Start: 04-15-2024 National Score (1-10 0), lower number is lower risk 63 [facility] Start: 1955 Sex assigned at Not on file C [facility] Start: 1955 Sex Assigned At Female W [facility] Clinical Notes 05-08-2024 to 03-03-2025 Deja uNnez, PERINATAL SOCIAL WORKER.STORAGE MANAGER - 03/03/2025 10:30 AM Deja Mina APRN.STORAGE MANAGER - 09/02/2024 11:30 AM Sera Fierro MD - 08/14/2024 10:45 AM ESTPatient InstructionsPatient Instructions Note Date & Type Note Facility 03-03-2025 History of Present illness Narrative DATE OF SERVICE: 03/03/25 Reason for visit: Surveillance visit PROBLEM: Stage IA grade 2 endometrial cancer HPI: Ms. Rahman is a 68 year old female who has a past medical history of Abnormal ultrasound of endometrium (05/16/2024), Essential hypertension, Obesity, PMB (postmenopausal bleeding) (05/16/2024), Primary generalized (osteo)arthritis, Sleep apnea, and Thickened endometrium (05/16/2024). Patient reports started having postmenopausal bleeding intermittently since August 2023. Reports light spotting for a few days. Santa presented to [facility] with complaints of PMB. Thickened endometrium noted on US. 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 Patient presents to [facility] for further evaluation. Patient reports that currently still having some spotting, though very light. SURGERY/PROCEDURE(S): 07/21/2024 Total laparoscopic hysterectomy with bilateral salpingo-oophorectomy Uterus >250g (22 modifier, significant additional effort required due to BMI 61 and large fibroid uterus requiring minilaparotomy for specimen removal) Bilateral cervix injection of ICG for sentinel lymph node mapping Bilateral pelvic sentinel lymph node biopsy cystoscopy IMAGIN05/15/24 US: Impression The uterus is anteverted and measures 119 mm x 88 mm x 132 mm. The endometrium is heterogenous, thickened with irregular cystic areas nd measures 13 mm. 1. Right lateral anterior wall subserous fibroid measures 69 mm x 91 mm x 68 mm. 2. Left lateral posterior wall subserous fibroid measures 53 mm x 59 mm x 50 mm. the right ovary is not visualized. The left ovary is not visualized. There is no free fluid visualized. 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 07/21/2024: FINAL DIAGNOSIS A. Uterus with cervix, right and left fallopian tubes, and ovaries, hysterectomy and bilateral salpingo-oophorectomy: - Cervix: No significant pathologic abnormality. 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 - Myometrium: Leiomyomas with degenerative changes. - Serosa: No significant pathologic abnormality. - Right ovary: Epithelial inclusion glands. - Left ovary: Small serous cystadenofibroma. - Bilateral fallopian tubes: Two fimbriated fallopian tubes showing no significant pathologic abnormality. B. [place] lymph node, left, biopsy: - One lymph node, negative for carcinoma (0/1); see comment. C. [place] lymph node, right, biopsy: - One lymph node, negative for carcinoma (0/1); see comment. HISTORIES: PAST GYNECOLOGIC HISTORY: OB History T0 L3 (all vaginal) SAB0 IAB0 Ectopic0 Multiple0 Live Births0 LMP: No LMP recorded. Patient is postmenopausal. Hormonal contraceptives: Yes, in 20s How lon years. HRT use: No. History of abnormal pap: No. Last pap: 06/19/24 negative Last HPV: 06/19/24 negative PAST SURGICAL HISTORY Procedure Laterality Date HYSTEROSCOPY, DIAGNOSTIC (SEPARATE hysteroscopy d&c PAST MEDICAL HISTORY Diagnosis Date Abnormal ultrasound of endometrium 05/16/2024 Essential hypertension Obesity PMB (postmenopausal bleeding) 05/16/2024 Primary generalized (osteo)arthritis Sleep apnea Thickened endometrium 05/16/2024 FAMILY HISTORY Problem Relation Age of Onset Heart Attack Mother Macular Degen Mother Cataract Mother Uterine Fibroids Mother Arthritis Mother Obesity Mother Uterine Cancer Mother Arthritis Father Hearing Loss Father Inherited Eye Disease Father Hypertension Father other (atrial fib) Sister Uterine Fibroids Sister Heart Attack Brother other (atrial fib) Brother Colon Cancer Maternal Grandmother Obesity Paternal Grandmother Family history of breast, ovarian, uterine or colon cancer: No Family history of VTE: No SOCIAL HISTORY Social History Tobacco Use Smoking status: Never Smokeless tobacco: Never Vaping Use Vaping status: Never Used Substance Use Topics Alcohol use: Not Currently Drug use: Never Occupation: retired, RN Marital Status: , [place] HEALTH MAINTENANCE: Last mammogram: 04/2024 Last colonoscopy: due for one this year ADVANCED CARE PLANNING: Does the patient have an advanced directive: Yes SUBJECTIVE/INTERVAL HISTORY: Santa Rahman reports that she feels well. No vaginal bleeding or discharge. Reports vaginal itching. No shortness of breath, cough, or chest pain. No abdominal pain, nausea, vomiting, diarrhea, or constipation. No dysuria, gross hematuria, urinary frequency, urinary urgency, or incontinence. Her ECOG performance status is 2 (ambulatory and capable of all selfcare but unable to carry out any work activities, up and about more than 50% of waking hours). She has been using crutches due to knee instability, which she attributes to arthritis and weight. She expresses a desire to discontinue crutch use. She is scheduled to start Mounjaro 2.5 mg today for weight management, with plans to switch to Zepbound once available. She is up to date with her mammogram, with the next one scheduled for April 19. She has a history of a heart murmur and is awaiting scheduling for an echocardiogram. She also plans to schedule a colonoscopy. OBJECTIVE: VITALS: BP 163/96 Pulse 60 Resp 18 Wt 377 lb 3.3 oz (171.1kg) SpO2 96% GENERAL: alert, oriented, pleasant, and cooperative. HEENT: Normocephalic and atraumatic. HEART: Regular rate and rhythm, no murmurs. LUNGS: Clear to auscultation bilaterally. Good air exchange. ABDOMEN: Abdomen soft, non-tender, no hepatosplenomegaly. PELVIC: external genitalia are normal and without lesions, vagina normal on speculum exam, uterus and cervix are surgically absent, bimanual exam negative, and no vaginal drainage LOWER EXTREMITIES: stable edema, no skin changes ASSESSMENT: 69yo with HTN and 2009 presenting for follow up on Stage IA/3 Stage 1A1 FIGO G2 endometrioid endometrial cancer. 2022 Stage 1A1 Grade 2 endometrial cancer, MMRp, POLE negative S/p Total laparoscopic hysterectomy with bilateral salpingo-oophorectomy, SLND, cystoscopy on 07/21/2024. Reviewed pathology results today. Given her low grade, no LVSI and no myometrial invasion, recommended observation. HTN Currently on 4 anti-hypertensives PLAN: 1. Encounter for follow-up surveillance of endometrial cancer (Z08) History of endometrial cancer (Z85.42) Patient has a history of endometrial cancer. No vaginal bleeding or abdominal pain reported in the last 6 months. CHANTELLE. - Scheduled next surveillance exam in 6 months. - Advised patient to monitor for any vaginal bleeding and to report immediately if it occurs. 2. Vaginal itching (N89.8) Intermittent pruritus reported, no significant drainage observed. Physical examination shows no obvious signs of infection. - Obtained vaginal swab to test for yeast and bacterial infections; results expected in 24-48 hours. - Will prescribe Diflucan if yeast infection is confirmed. Deja Nunez APRN.CNP CC: Sera Reddy MD All documentation from previous visit of 09/02/24 was copied and pasted, documentation has been reviewed and edited as necessary for today's visit. PCP: - Arleth Lau [address] [facility] [id number] - No primary care provider on file. (PCP) I spent a total of 30 minutes on the date of the service which included preparing to see the patient, [id number] patient care, completing clinical documentation, obtaining and/or reviewing separately obtained history, performing a medically appropriate examination, and counseling and educating the patient/family/caregiver. documented in this encounter [facility] 03-03-2025 Note HNO ID: [id number] Author: DEJA NUNEZ APRN.CNP Service: ? Author Type: Nurse Practitioner Type: Progress Notes Filed: 03/03/2025 11:04 Note Text: DATE OF SERVICE: 03/03/25 Reason for visit: Surveillance visit PROBLEM: Stage IA grade 2 endometrial cancer HPI: Ms. Rahman is a 68 year old female who has a past medical history of Abnormal ultrasound of endometrium (05/16/2024), Essential hypertension, Obesity, PMB (postmenopausal bleeding) (05/16/2024), Primary generalized (osteo)arthritis, Sleep apnea, and Thickened endometrium (05/16/2024). Patient reports started having postmenopausal bleeding intermittently since August 2023. Reports light spotting for a few days. Santa presented to [facility] with complaints of PMB. Thickened endometrium noted on US. 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 Patient presents to [facility] for further evaluation. Patient reports that currently still having some spotting, though very light. SURGERY/PROCEDURE(S): 07/21/2024 Total laparoscopic hysterectomy with bilateral salpingo-oophorectomy Uterus >250g (22 modifier, significant additional effort required due to BMI 61 and large fibroid uterus requiring minilaparotomy for specimen removal) Bilateral cervix injection of ICG for sentinel lymph node mapping Bilateral pelvic sentinel lymph node biopsy cystoscopy IMAGIN05/15/24 US: Impression The uterus is anteverted and measures 119 mm x 88 mm x 132 mm. The endometrium is heterogenous, thickened with irregular cystic areas nd measures 13 mm. 1. Right lateral anterior wall subserous fibroid measures 69 mm x 91 mm x 68 mm. 2. Left lateral posterior wall subserous fibroid measures 53 mm x 59 mm x 50 mm. the right ovary is not visualized. The left ovary is not visualized. There is no free fluid visualized. 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 07/21/2024: FINAL DIAGNOSIS A. Uterus with cervix, right and left fallopian tubes, and ovaries, hysterectomy and bilateral salpingo-oophorectomy: - Cervix: No significant pathologic abnormality. 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 - Myometrium: Leiomyomas with degenerative changes. - Serosa: No significant pathologic abnormality. - Right ovary: Epithelial inclusion glands. - Left ovary: Small serous cystadenofibroma. - Bilateral fallopian tubes: Two fimbriated fallopian tubes showing no significant pathologic abnormality. B. [place] lymph node, left, biopsy: - One lymph node, negative for carcinoma (0/1); see comment. C. [place] lymph node, right, biopsy: - One lymph node, negative for carcinoma (0/1); see comment. HISTORIES: PAST GYNECOLOGIC HISTORY: OB History T0 L3 (all vaginal) SAB0 IAB0 Ectopic0 Multiple0 Live Births0 LMP: No LMP recorded. Patient is postmenopausal. Hormonal contraceptives: Yes, in 20s How lon years. HRT use: No. History of abnormal pap: No. Last pap: 06/19/24 negative Last HPV: 06/19/24 negative PAST SURGICAL HISTORY Procedure Laterality Date HYSTEROSCOPY, DIAGNOSTIC (SEPARATE hysteroscopy dANDc PAST MEDICAL HISTORY Diagnosis Date Abnormal ultrasound of endometrium 05/16/2024 Essential hypertension Obesity PMB (postmenopausal bleeding) 05/16/2024 Primary generalized (osteo)arthritis Sleep apnea Thickened endometrium 05/16/2024 FAMILY HISTORY Problem Relation Age of Onset Heart Attack Mother Macular Degen Mother Cataract Mother Uterine Fibroids Mother Arthritis Mother Obesity Mother Uterine Cancer Mother Arthritis Father Hearing Loss Father Inherited Eye Disease Father Hypertension Father other (atrial fib) Sister Uterine Fibroids Sister Heart Attack Brother other (atrial fib) Brother Colon Cancer Maternal Grandmother Obesity Paternal Grandmother Family history of breast, ovarian, uterine or colon cancer: No Family history of VTE: No SOCIAL HISTORY Social History Tobacco Use Smoking status: Never Smokeless tobacco: Never Vaping Use Vaping status: Never Used Substance Use Topics Alcohol use: Not Currently Drug use: Never Occupation: retired, RN Marital Status: , Andrew HEALTH MAINTENANCE: Last mammogram: 04/2024 Last colonoscopy: due for one this year ADVANCED CARE PLANNING: Does the patient have an advanced directive: Yes SUBJECTIVE/INTERVAL HISTORY: Santa Rahman reports that she feels well. No vaginal bleeding or discharge. Reports vaginal itching. No shortness of breath, cough, or chest pain. No abdominal shanda (more content not included)... [facility] 09-02-2024 History of Present illness Narrative DATE OF SERVICE: 09/02/2024 Reason for visit: post op follow up, 6 week check PROBLEM: Stage IA grade 2 endometrial cancer HPI: Ms. Rahman is a 68 year old female who has a past medical history of Abnormal ultrasound of endometrium (05/16/2024), Essential hypertension, Obesity, PMB (postmenopausal bleeding) (05/16/2024), Primary generalized (osteo)arthritis, Sleep apnea, and Thickened endometrium (05/16/2024). Patient reports started having postmenopausal bleeding intermittently since August 2023. Reports light spotting for a few days. Santa presented to [facility] with complaints of PMB. Thickened endometrium noted on US. 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 Patient presents to [facility] for further evaluation. Patient reports that currently still having some spotting, though very light. SURGERY/PROCEDURE(S): 07/21/2024 Total laparoscopic hysterectomy with bilateral salpingo-oophorectomy Uterus >250g (22 modifier, significant additional effort required due to BMI 61 and large fibroid uterus requiring minilaparotomy for specimen removal) Bilateral cervix injection of ICG for sentinel lymph node mapping Bilateral pelvic sentinel lymph node biopsy cystoscopy IMAGIN05/15/24 US: Impression The uterus is anteverted and measures 119 mm x 88 mm x 132 mm. The endometrium is heterogenous, thickened with irregular cystic areas nd measures 13 mm. 1. Right lateral anterior wall subserous fibroid measures 69 mm x 91 mm x 68 mm. 2. Left lateral posterior wall subserous fibroid measures 53 mm x 59 mm x 50 mm. the right ovary is not visualized. The left ovary is not visualized. There is no free fluid visualized. 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 07/21/2024: FINAL DIAGNOSIS A. Uterus with cervix, right and left fallopian tubes, and ovaries, hysterectomy and bilateral salpingo-oophorectomy: - Cervix: No significant pathologic abnormality. 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 - Myometrium: Leiomyomas with degenerative changes. - Serosa: No significant pathologic abnormality. - Right ovary: Epithelial inclusion glands. - Left ovary: Small serous cystadenofibroma. - Bilateral fallopian tubes: Two fimbriated fallopian tubes showing no significant pathologic abnormality. B. [place] lymph node, left, biopsy: - One lymph node, negative for carcinoma (0/1); see comment. C. [place] lymph node, right, biopsy: - One lymph node, negative for carcinoma (0/1); see comment. HISTORIES: PAST GYNECOLOGIC HISTORY: OB History T0 L3 (all vaginal) SAB0 IAB0 Ectopic0 Multiple0 Live Births0 LMP: No LMP recorded. Patient is postmenopausal. Hormonal contraceptives: Yes, in 20s How lon years. HRT use: No. History of abnormal pap: No. Last pap: 06/19/24 negative Last HPV: 06/19/24 negative PAST SURGICAL HISTORY Procedure Laterality Date HYSTEROSCOPY, DIAGNOSTIC (SEPARATE hysteroscopy d&c PAST MEDICAL HISTORY Diagnosis Date Abnormal ultrasound of endometrium 05/16/2024 Essential hypertension Obesity PMB (postmenopausal bleeding) 05/16/2024 Primary generalized (osteo)arthritis Sleep apnea Thickened endometrium 05/16/2024 FAMILY HISTORY Problem Relation Age of Onset Heart Attack Mother Macular Degen Mother Cataract Mother Uterine Fibroids Mother Arthritis Mother Obesity Mother Uterine Cancer Mother Arthritis Father Hearing Loss Father Inherited Eye Disease Father Hypertension Father other (atrial fib) Sister Uterine Fibroids Sister Heart Attack Brother other (atrial fib) Brother Colon Cancer Maternal Grandmother Obesity Paternal Grandmother Family history of breast, ovarian, uterine or colon cancer: No Family history of VTE: No SOCIAL HISTORY Social History Tobacco Use Smoking status: Never Smokeless tobacco: Never Vaping Use Vaping status: Never Used Substance Use Topics Alcohol use: Not Currently Drug use: Never Occupation: retired, RN Marital Status: , Andrew HEALTH MAINTENANCE: Last mammogram: 04/2024 Last colonoscopy: due for one this year ADVANCED CARE PLANNING: Does the patient have an advanced directive: Yes SUBJECTIVE/INTERVAL HISTORY: Santa Rahman reports that she feels well. No vaginal bleeding or discharge. No shortness of breath, cough, or chest pain. No abdominal pain, nausea, vomiting, diarrhea, or constipation. No dysuria, gross hematuria, urinary frequency, urinary urgency, or incontinence. Her ECOG performance status is 1 (restricted in physically strenuous activity but ambulatory and able to carry out work of a light or sedentary nature). The sensitive examination was discussed with the Patient or Patient's Authorized Utilization Review Coordinator. As applicable, any other physician, advance practice provider, medical student, or other health professional student that will be observing or involved in the sensitive examination for educational or training purposes was discussed with the Patient or Authorized Utilization Review Coordinator. The Patient or Authorized Utilization Review Coordinator has agreed to proceed with the sensitive examination. (Sensitive examination includes inspection and/or palpation of the breasts, pelvis, prostate and anorectal regions) OBJECTIVE: VITALS: BP 184/94 Pulse 60 Temp (Src) 98.9 (Oral) Resp 18 Wt 372 lb 2.2 oz (168.8kg) SpO2 90% GENERAL: alert, oriented, pleasant, and cooperative. HEENT: Normocephalic and atraumatic. HEART: Regular rate and rhythm, no murmurs. LUNGS: Clear to auscultation bilaterally. Good air exchange. ABDOMEN: Abdomen soft, non-tender, no hepatosplenomegaly. Incision healing well. PELVIC: external genitalia are normal and without lesions, vaginal cuff healing well, uterus is surgically absent, bimanual exam negative, and no vaginal drainage LOWER EXTREMITIES: No pitting edema and no skin changes ASSESSMENT: 68yo with HTN and 2009 presenting for follow up on Stage IA/2022 Stage 1A1 FIGO G2 endometrioid endometrial cancer. 2022 Stage 1A1 Grade 2 endometrial cancer, MMRp, POLE negative S/p Total laparoscopic hysterectomy with bilateral salpingo-oophorectomy, SLND, cystoscopy on 07/21/2024. Reviewed pathology results today. Given her low grade, no LVSI and no myometrial invasion, recommended observation. HTN Currently on 4 anti-hypertensives PLAN: Healing well post operatively. Return in 6 months for surveillance, sooner if any issues arise. Deja Nunez APRN.CNP CC: Sera Reddy MD All documentation from previous visit of 08/14/[address] Sera Reddy was copied and pasted, documentation has been reviewed and edited as necessary for today's visit. PCP: - [facility]le[facility] Lau [address] [place] [id number] - No primary care provider on file. (PCP) documented in this encounter [facility] 09-02-2024 Note HNO ID: [id number] Author: DEJA NUNEZ APRN.CNP Service: ? Author Type: Nurse Practitioner Type: Progress Notes Filed: 09/02/2024 12:16 Note Text: DATE OF SERVICE: 09/02/2024 Reason for visit: post op follow up, 6 week check PROBLEM: Stage IA grade 2 endometrial cancer HPI: Ms. Rahman is a 68 year old female who has a past medical history of Abnormal ultrasound of endometrium (05/16/2024), Essential hypertension, Obesity, PMB (postmenopausal bleeding) (05/16/2024), Primary generalized (osteo)arthritis, Sleep apnea, and Thickened endometrium (05/16/2024). Patient reports started having postmenopausal bleeding intermittently since August 2023. Reports light spotting for a few days. Santa presented to [facility] with complaints of PMB. Thickened endometrium noted on US. 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 Patient presents to [facility] for further evaluation. Patient reports that currently still having some spotting, though very light. SURGERY/PROCEDURE(S): 07/21/2024 Total laparoscopic hysterectomy with bilateral salpingo-oophorectomy Uterus >250g (22 modifier, significant additional effort required due to BMI 61 and large fibroid uterus requiring minilaparotomy for specimen removal) Bilateral cervix injection of ICG for sentinel lymph node mapping Bilateral pelvic sentinel lymph node biopsy cystoscopy IMAGIN05/15/24 US: Impression The uterus is anteverted and measures 119 mm x 88 mm x 132 mm. The endometrium is heterogenous, thickened with irregular cystic areas nd measures 13 mm. 1. Right lateral anterior wall subserous fibroid measures 69 mm x 91 mm x 68 mm. 2. Left lateral posterior wall subserous fibroid measures 53 mm x 59 mm x 50 mm. the right ovary is not visualized. The left ovary is not visualized. There is no free fluid visualized. 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 07/21/2024: FINAL DIAGNOSIS A. Uterus with cervix, right and left fallopian tubes, and ovaries, hysterectomy and bilateral salpingo-oophorectomy: - Cervix: No significant pathologic abnormality. 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 - Myometrium: Leiomyomas with degenerative changes. - Serosa: No significant pathologic abnormality. - Right ovary: Epithelial inclusion glands. - Left ovary: Small serous cystadenofibroma. - Bilateral fallopian tubes: Two fimbriated fallopian tubes showing no significant pathologic abnormality. B. [place] lymph node, left, biopsy: - One lymph node, negative for carcinoma (0/1); see comment. C. [place] lymph node, right, biopsy: - One lymph node, negative for carcinoma (0/1); see comment. HISTORIES: PAST GYNECOLOGIC HISTORY: OB History T0 L3 (all vaginal) SAB0 IAB0 Ectopic0 Multiple0 Live Births0 LMP: No LMP recorded. Patient is postmenopausal. Hormonal contraceptives: Yes, in 20s How lon years. HRT use: No. History of abnormal pap: No. Last pap: 06/19/24 negative Last HPV: 06/19/24 negative PAST SURGICAL HISTORY Procedure Laterality Date HYSTEROSCOPY, DIAGNOSTIC (SEPARATE hysteroscopy dANDc PAST MEDICAL HISTORY Diagnosis Date Abnormal ultrasound of endometrium 05/16/2024 Essential hypertension Obesity PMB (postmenopausal bleeding) 05/16/2024 Primary generalized (osteo)arthritis Sleep apnea Thickened endometrium 05/16/2024 FAMILY HISTORY Problem Relation Age of Onset Heart Attack Mother Macular Degen Mother Cataract Mother Uterine Fibroids Mother Arthritis Mother Obesity Mother Uterine Cancer Mother Arthritis Father Hearing Loss Father Inherited Eye Disease Father Hypertension Father other (atrial fib) Sister Uterine Fibroids Sister Heart Attack Brother other (atrial fib) Brother Colon Cancer Maternal Grandmother Obesity Paternal Grandmother Family history of breast, ovarian, uterine or colon cancer: No Family history of VTE: No SOCIAL HISTORY Social History Tobacco Use Smoking status: Never Smokeless tobacco: Never Vaping Use Vaping status: Never Used Substance Use Topics Alcohol use: Not Currently Drug use: Never Occupation: retired, RN Marital Status: , Andrew HEALTH MAINTENANCE: Last mammogram: 04/2024 Last colonoscopy: due for one this year ADVANCED CARE PLANNING: Does the patient have an advanced directive: Yes SUBJECTIVE/INTERVAL HISTORY: Santa Rahman reports that she feels well. No vaginal bleeding or discharge. No shortness of breath, cough, or chest pain. No abdominal pain, nause (more content not included)... [facility] 08-14-2024 History of Present illness Narrative DATE OF SERVICE: 08/14/2024 Reason for visit: post op follow up PROBLEM: Stage IA grade 2 endometrial cancer HPI: Ms. Rahman is a 68 year old female who has a past medical history of Abnormal ultrasound of endometrium (05/16/2024), Essential hypertension, Obesity, PMB (postmenopausal bleeding) (05/16/2024), Primary generalized (osteo)arthritis, Sleep apnea, and Thickened endometrium (05/16/2024). Patient reports started having postmenopausal bleeding intermittently since August 2023. Reports light spotting for a few days. Santa presented to [facility] with complaints of PMB. Thickened endometrium noted on US. 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 Patient presents to [facility] for further evaluation. Patient reports that currently still having some spotting, though very light. SURGERY/PROCEDURE(S): 07/21/2024 Total laparoscopic hysterectomy with bilateral salpingo-oophorectomy Uterus >250g (22 modifier, significant additional effort required due to BMI 61 and large fibroid uterus requiring minilaparotomy for specimen removal) Bilateral cervix injection of ICG for sentinel lymph node mapping Bilateral pelvic sentinel lymph node biopsy cystoscopy IMAGIN05/15/24 US: Impression The uterus is anteverted and measures 119 mm x 88 mm x 132 mm. The endometrium is heterogenous, thickened with irregular cystic areas nd measures 13 mm. 1. Right lateral anterior wall subserous fibroid measures 69 mm x 91 mm x 68 mm. 2. Left lateral posterior wall subserous fibroid measures 53 mm x 59 mm x 50 mm. the right ovary is not visualized. The left ovary is not visualized. There is no free fluid visualized. 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 07/21/2024: FINAL DIAGNOSIS A. Uterus with cervix, right and left fallopian tubes, and ovaries, hysterectomy and bilateral salpingo-oophorectomy: - Cervix: No significant pathologic abnormality. 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 - Myometrium: Leiomyomas with degenerative changes. - Serosa: No significant pathologic abnormality. - Right ovary: Epithelial inclusion glands. - Left ovary: Small serous cystadenofibroma. - Bilateral fallopian tubes: Two fimbriated fallopian tubes showing no significant pathologic abnormality. B. [place] lymph node, left, biopsy: - One lymph node, negative for carcinoma (0/1); see comment. C. [place] lymph node, right, biopsy: - One lymph node, negative for carcinoma (0/1); see comment. HISTORIES: PAST GYNECOLOGIC HISTORY: OB History T0 L3 (all vaginal) SAB0 IAB0 Ectopic0 Multiple0 Live Births0 LMP: No LMP recorded. Patient is postmenopausal. Hormonal contraceptives: Yes, in 20s How lon years. HRT use: No. History of abnormal pap: No. Last pap: 06/19/24 negative Last HPV: 06/19/24 negative PAST SURGICAL HISTORY Procedure Laterality Date HYSTEROSCOPY, DIAGNOSTIC (SEPARATE hysteroscopy d&c PAST MEDICAL HISTORY Diagnosis Date Abnormal ultrasound of endometrium 05/16/2024 Essential hypertension Obesity PMB (postmenopausal bleeding) 05/16/2024 Primary generalized (osteo)arthritis Sleep apnea Thickened endometrium 05/16/2024 FAMILY HISTORY Problem Relation Age of Onset Heart Attack Mother Macular Degen Mother Cataract Mother Uterine Fibroids Mother Arthritis Mother Obesity Mother Uterine Cancer Mother Arthritis Father Hearing Loss Father Inherited Eye Disease Father Hypertension Father other (atrial fib) Sister Uterine Fibroids Sister Heart Attack Brother other (atrial fib) Brother Colon Cancer Maternal Grandmother Obesity Paternal Grandmother Family history of breast, ovarian, uterine or colon cancer: No Family history of VTE: No SOCIAL HISTORY Social History Tobacco Use Smoking status: Never Smokeless tobacco: Never Vaping Use Vaping status: Never Used Substance Use Topics Alcohol use: Not Currently Drug use: Never Occupation: retired, RN Marital Status: , Andrew HEALTH MAINTENANCE: Last mammogram: 04/2024 Last colonoscopy: due for one this year ADVANCED CARE PLANNING: Does the patient have an advanced directive: Yes SUBJECTIVE: Santa Rahman reports she is feeling well. Only using pain medications for her knees. Normal bowel and bladder function. Having small amount of vaginal spotting. Has no concerns today. OBJECTIVE: VITALS: BP 178/95 Pulse 60 Temp 36.8 C (98.3 F) (Oral) Resp 18 Wt (!) 166.9 kg (367 lb 15.2 oz) SpO2 95% BMI 61.23 kg/m GENERAL: Patient is a well developed, well nourished female. She is alert, oriented, pleasant, and cooperative. ABDOMEN: Abdomen soft, non-tender, no palpable masses. Port site incisions c/d/I, healing well. Mini-lap incision c/d, slightly superficial skin separation but healing well. LOWER EXTREMITIES: No pitting edema, no palpable cords, and no skin changes. ASSESSMENT: 68yo with HTN and 2009 presenting for follow up on Stage IA/2022 Stage 1A1 FIGO G2 endometrioid endometrial cancer. 2022 Stage 1A1 Grade 2 endometrial cancer, MMRp, POLE negative S/p Total laparoscopic hysterectomy with bilateral salpingo-oophorectomy, SLND, cystoscopy on 07/21/2024. Reviewed pathology results today. Given her low grade, no LVSI and no myometrial invasion, recommended observation. HTN Currently on 4 anti-hypertensives PLAN: - Continue activity restrictions for an additional 3 weeks - RTC in 3 weeks for post-op cuff check - Surveillance with q6 month visits & pelvic exams for 2 years then q12 months for 3 years Jackie Ross MD Gynecologic Oncology Fellow SCRIBE ATTESTATION: By signing my name below, I,Joe Lee Scribe attest that this documentation has been prepared under the direction and in the presence of Sera Reddy MD Electronically Signed: Kip eLe. August 14, 2024 10:24 AM. [facility] Staff: Patient was seen and examined by me. All plaza elements of the Fellow's history and physical were confirmed. I agree with the above documented findings and plan of care as outlined by the Fellow. Sera Reddy MD All documentation from previous visit of 07/10/[address] Sera Reddy was copied and pasted, documentation has been reviewed and edited as necessary for today's visit. PCP: - Arle[facility] Lau [address] [facility] [id number] - No primary care provider on file. (PCP) documented in this encounter [facility] 08-14-2024 Note HNO ID: [id number] Author: SERA REDDY MD Service: ? Author Type: Physician Type: Progress Notes Filed: 08/14/2024 12:34 Note Text: DATE OF SERVICE: 08/14/2024 Reason for visit: post op follow up PROBLEM: Stage IA grade 2 endometrial cancer HPI: Ms. Rahman is a 68 year old female who has a past medical history of Abnormal ultrasound of endometrium (05/16/2024), Essential hypertension, Obesity, PMB (postmenopausal bleeding) (05/16/2024), Primary generalized (osteo)arthritis, Sleep apnea, and Thickened endometrium (05/16/2024). Patient reports started having postmenopausal bleeding intermittently since August 2023. Reports light spotting for a few days. Santa presented to [facility] with complaints of PMB. Thickened endometrium noted on US. 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 Patient presents [facility] for further evaluation. Patient reports that currently still having some spotting, though very light. SURGERY/PROCEDURE(S): 07/21/2024 Total laparoscopic hysterectomy with bilateral salpingo-oophorectomy Uterus >250g (22 modifier, significant additional effort required due to BMI 61 and large fibroid uterus requiring minilaparotomy for specimen removal) Bilateral cervix injection of ICG for sentinel lymph node mapping Bilateral pelvic sentinel lymph node biopsy cystoscopy IMAGIN05/15/24 US: Impression The uterus is anteverted and measures 119 mm x 88 mm x 132 mm. The endometrium is heterogenous, thickened with irregular cystic areas nd measures 13 mm. 1. Right lateral anterior wall subserous fibroid measures 69 mm x 91 mm x 68 mm. 2. Left lateral posterior wall subserous fibroid measures 53 mm x 59 mm x 50 mm. the right ovary is not visualized. The left ovary is not visualized. There is no free fluid visualized. 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 07/21/2024: FINAL DIAGNOSIS A. Uterus with cervix, right and left fallopian tubes, and ovaries, hysterectomy and bilateral salpingo-oophorectomy: - Cervix: No significant pathologic abnormality. 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 - Myometrium: Leiomyomas with degenerative changes. - Serosa: No significant pathologic abnormality. - Right ovary: Epithelial inclusion glands. - Left ovary: Small serous cystadenofibroma. - Bilateral fallopian tubes: Two fimbriated fallopian tubes showing no significant pathologic abnormality. B. [place] lymph node, left, biopsy: - One lymph node, negative for carcinoma (0/1); see comment. C. [place] lymph node, right, biopsy: - One lymph node, negative for carcinoma (0/1); see comment. HISTORIES: PAST GYNECOLOGIC HISTORY: OB History T0 L3 (all vaginal) SAB0 IAB0 Ectopic0 Multiple0 Live Births0 LMP: No LMP recorded. Patient is postmenopausal. Hormonal contraceptives: Yes, in 20s How lon years. HRT use: No. History of abnormal pap: No. Last pap: 06/19/24 negative Last HPV: 06/19/24 negative PAST SURGICAL HISTORY Procedure Laterality Date HYSTEROSCOPY, DIAGNOSTIC (SEPARATE hysteroscopy dANDc PAST MEDICAL HISTORY Diagnosis Date Abnormal ultrasound of endometrium 05/16/2024 Essential hypertension Obesity PMB (postmenopausal bleeding) 05/16/2024 Primary generalized (osteo)arthritis Sleep apnea Thickened endometrium 05/16/2024 FAMILY HISTORY Problem Relation Age of Onset Heart Attack Mother Macular Degen Mother Cataract Mother Uterine Fibroids Mother Arthritis Mother Obesity Mother Uterine Cancer Mother Arthritis Father Hearing Loss Father Inherited Eye Disease Father Hypertension Father other (atrial fib) Sister Uterine Fibroids Sister Heart Attack Brother other (atrial fib) Brother Colon Cancer Maternal Grandmother Obesity Paternal Grandmother Family history of breast, ovarian, uterine or colon cancer: No Family history of VTE: No SOCIAL HISTORY Social History Tobacco Use Smoking status: Never Smokeless tobacco: Never Vaping Use Vaping status: Never Used Substance Use Topics Alcohol use: Not Currently Drug use: Never Occupation: retired, RN Marital Status: , Andrew HEALTH MAINTENANCE: Last mammogram: 04/2024 Last colonoscopy: due for one this year ADVANCED CARE PLANNING: Does the patient have an advanced directive: Yes SUBJECTIVE: Santa Rahman reports she is feeling well. Only using pain medications for her knees. Normal bowel and bladder function. Having small amount of vaginal spotting. Has no concerns today. OBJECT (more content not included)... [facility] 07-31-2024 Telephone encounter Note Called Mica to discuss her pathology results: 07/21/2024 FINAL DIAGNOSIS A. Uterus with cervix, right and left fallopian tubes, and ovaries, hysterectomy and bilateral salpingo-oophorectomy: - Cervix: No significant pathologic abnormality. 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 - Myometrium: Leiomyomas with degenerative changes. - Serosa: No significant pathologic abnormality. - Right ovary: Epithelial inclusion glands. - Left ovary: Small serous cystadenofibroma. - Bilateral fallopian tubes: Two fimbriated fallopian tubes showing no significant pathologic abnormality. B. [place] lymph node, left, biopsy: - One lymph node, negative for carcinoma (0/1); see comment. C. [place] lymph node, right, biopsy: - One lymph node, negative for carcinoma (0/1); see comment. Diagnosis Comment A - Select slides of this case (A4, A5, A7, and A16-18) were reviewed at the departmental gynecologic consensus conference on 07/29/24, and DrsAllison Clarke, Alvina, Elis, and Vasquez agree. B, C - According to our institutional sentinel lymph node protocol, immunohistochemical stains for AE1/3 and additional levels were performed and evaluated at the [facility] using blocks B1, B2, C1, C2, and C3. Levels and cytokeratin immunohistochemical stains are all negative for carcinoma. Laboratory Developed Test (LDT) Disclaimer: Performance characteristics of immunohistochemical, immunofluorescent and chromogenic in-situ hybridization tests have been determined by the performing laboratory within [facility] ([facility], [facility], [facility], [facility], [facility], [facility], or [facility]) in a manner consistent with CLIA requirements. One or more of these tests have not been cleared or approved by the FDA. RT-PLM is regulated under CLIA as qualified to perform high-complexity testing. These tests are used for clinical purposes. They should not be regarded as investigational or for research. Positive and negative controls stain appropriately. Block for additional Biomarkers/Molecular studies A7 Synoptic Report ENDOMETRIUM 8th Edition - Protocol posted: 08/08/2023UTERUS, ENDOMETRIUM, CARCINOMA: RESECTION - All Specimens SPECIMEN Procedure Total hysterectomy and bilateral salpingo-oophorectomy Hysterectomy Type Not specified Specimen Integrity Intact TUMOR Tumor Site Endometrium Tumor Size Greatest Dimension (Centimeters): 3.5 cm Histologic Type Endometrioid carcinoma, NOS Histologic Grade FIGO grade 2 Two-Tier Grading System Low grade (encompassing FIGO 1 and 2) Myometrial Invasion Not identified Adenomyosis Not identified Uterine Serosa Involvement Not identified Lower Uterine Segment Involvement Not identified Cervical Stromal Involvement Not identified Other Tissue / Organ Involvement Not identified Peritoneal / Ascitic Fluid Not submitted / unknown Lymphatic and / or Vascular Invasion Not identified MARGINS Margin Status All margins negative for invasive carcinoma REGIONAL LYMPH NODES Regional Lymph Node Status All regional lymph nodes negative for tumor cells Lymph Nodes Examined Total Number of Pelvic Nodes Examined 2 Number of Pelvic [place] Nodes Examined 2 Total Number of Para-aortic Nodes Examined 0 pTNM CLASSIFICATION (AJCC 8th Edition) Reporting of pT, pN, and (when applicable) pM categories is based on information available to the pathologist at the time the report is issued. As per the AJCC (Chapter 1, 8th Ed.) it is the managing physician s responsibility to establish the final pathologic stage based upon all pertinent information, including but potentially not limited to this pathology report. pT Category pT1a pN Category pN0 N Suffix (sn) FIGO STAGE FIGO Stage IA1 FIGO Modified Classification mNSMP ADDITIONAL FINDINGS Additional Findings leiomyomas, serous cystadenofibroma Will continue with surveillance visits every 6 months. Follow up post op as scheduled. All questions answered at this time. Deja Nunez APRN.CNP July 31, 2024 6:28 PM [facility] 07-31-2024 Miscellaneous Notes Called Mica to discuss her pathology results: 07/21/2024 FINAL DIAGNOSIS A. Uterus with cervix, right and left fallopian tubes, and ovaries, hysterectomy and bilateral salpingo-oophorectomy: - Cervix: No significant pathologic abnormality. 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 - Myometrium: Leiomyomas with degenerative changes. - Serosa: No significant pathologic abnormality. - Right ovary: Epithelial inclusion glands. - Left ovary: Small serous cystadenofibroma. - Bilateral fallopian tubes: Two fimbriated fallopian tubes showing no significant pathologic abnormality. B. [place] lymph node, left, biopsy: - One lymph node, negative for carcinoma (0/1); see comment. C. [place] lymph node, right, biopsy: - One lymph node, negative for carcinoma (0/1); see comment. Diagnosis Comment A - Select slides of this case (A4, A5, A7, and A16-18) were reviewed at the departmental gynecologic consensus conference on 07/29/24, and Allison Vuong, Elis Tinsley, and Vasquez agree. B, C - According to our institutional sentinel lymph node protocol, immunohistochemical stains for AE1/3 and additional levels were performed and evaluated at the [facility] using blocks B1, B2, C1, C2, and C3. Levels and cytokeratin immunohistochemical stains are all negative for carcinoma. Laboratory Developed Test (LDT) Disclaimer: Performance characteristics of immunohistochemical, immunofluorescent and chromogenic in-situ hybridization tests have been determined by the performing laboratory within [facility] s [facility] Pathology and Laboratory Medicine Department ([facility], [facility], [facility], [facility], [facility], [facility], or [facility]) in a manner consistent with CLIA requirements. One or more of these tests have not been cleared or approved by the FDA. RT-PLM is regulated under CLIA as qualified to perform high-complexity testing. These tests are used for clinical purposes. They should not be regarded as investigational or for research. Positive and negative controls stain appropriately. Block for additional Biomarkers/Molecular studies A7 Synoptic Report ENDOMETRIUM 8th Edition - Protocol posted: 08/08/2023UTERUS, ENDOMETRIUM, CARCINOMA: RESECTION - All Specimens SPECIMEN Procedure Total hysterectomy and bilateral salpingo-oophorectomy Hysterectomy Type Not specified Specimen Integrity Intact TUMOR Tumor Site Endometrium Tumor Size Greatest Dimension (Centimeters): 3.5 cm Histologic Type Endometrioid carcinoma, NOS Histologic Grade FIGO grade 2 Two-Tier Grading System Low grade (encompassing FIGO 1 and 2) Myometrial Invasion Not identified Adenomyosis Not identified Uterine Serosa Involvement Not identified Lower Uterine Segment Involvement Not identified Cervical Stromal Involvement Not identified Other Tissue / Organ Involvement Not identified Peritoneal / Ascitic Fluid Not submitted / unknown Lymphatic and / or Vascular Invasion Not identified MARGINS Margin Status All margins negative for invasive carcinoma REGIONAL LYMPH NODES Regional Lymph Node Status All regional lymph nodes negative for tumor cells Lymph Nodes Examined Total Number of Pelvic Nodes Examined 2 Number of Pelvic [place] Nodes Examined 2 Total Number of Para-aortic Nodes Examined 0 pTNM CLASSIFICATION (AJCC 8th Edition) Reporting of pT, pN, and (when applicable) pM categories is based on information available to the pathologist at the time the report is issued. As per the AJCC (Chapter 1, 8th Ed.) it is the managing physician s responsibility to establish the final pathologic stage based upon all pertinent information, including but potentially not limited to this pathology report. pT Category pT1a pN Category pN0 N Suffix (sn) FIGO STAGE FIGO Stage IA1 FIGO Modified Classification mNSMP ADDITIONAL FINDINGS Additional Findings leiomyomas, serous cystadenofibroma Will continue with surveillance visits every 6 months. Follow up post op as scheduled. All questions answered at this time. Deja Nunez APRN.CNP July 31, 2024 6:28 PM documented in this encounter [facility] 07-28-2024 History of Present illness Narrative TELEVISIT PROGRESS NOTE I have communicated my name and active licensure. The patient's identity and physical location were verified at the time of this visit. Either the patient or their legal parts sales representative has been informed of the risks and benefits of -- and alternatives to -- treatment through a remote evaluation and consents to proceed with the evaluation remotely. This is a telephone encounter initiated for an established patient, parent or guardian is within the previous 7 days, leading to an Evaluation & Management service or procedure within the next 24 hours or soonest available appointment and therefore will be no charge to the patient. Patient name and birthday verified: Yes Location of patient: Home Persons Present: patient DATE OF SERVICE: 07/28/2024 REASON FOR VISIT: Post op PROBLEM: Santa Rahman is a consult from Dr. Lau for evaluation of endometrial cancer. HPI: Ms. Rahman is a 68 year old female who has a past medical history of Abnormal ultrasound of endometrium (05/16/2024), Essential hypertension, Obesity, PMB (postmenopausal bleeding) (05/16/2024), Primary generalized (osteo)arthritis, Sleep apnea, and Thickened endometrium (05/16/2024).Patient reports started having postmenopausal bleeding intermittently since August 2023. Reports light spotting for a few days. Santa presented to [facility] with complaints of PM[facility]. Thickened endometrium noted on US. 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 Patient presents to [facility] for further evaluation. Patient reports that currently still having some spotting, though very light. 07/21/2024 SURGERY: Total laparoscopic hysterectomy with bilateral salpingo-oophorectomy Uterus >250g (22 modifier, significant additional effort required due to BMI 61 and large fibroid uterus requiring minilaparotomy for specimen removal), Bilateral cervix injection of ICG for sentinel lymph node mapping, Bilateral pelvic sentinel lymph node biopsy, cystoscopy IMAGIN05/15/24 US: Impression The uterus is anteverted and measures 119 mm x 88 mm x 132 mm. The endometrium is heterogenous, thickened with irregular cystic areas nd measures 13 mm. 1. Right lateral anterior wall subserous fibroid measures 69 mm x 91 mm x 68 mm. 2. Left lateral posterior wall subserous fibroid measures 53 mm x 59 mm x 50 mm. the right ovary is not visualized. The left ovary is not visualized. There is no free fluid visualized. 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 07/21/2024 In process HISTORIES: PAST GYNECOLOGIC HISTORY: OB History T0 L3 (all vaginal) SAB0 IAB0 Ectopic0 Multiple0 Live Births0 LMP: No LMP recorded. Patient is postmenopausal. Hormonal contraceptives: Yes, in 20s How lon years. HRT use: No. History of abnormal pap: No. Last pap: 06/19/24 negative Last HPV: 06/19/24 negative PAST SURGICAL HISTORY Procedure Laterality Date HYSTEROSCOPY, DIAGNOSTIC (SEPARATE hysteroscopy d&c PAST MEDICAL HISTORY Diagnosis Date Abnormal ultrasound of endometrium 05/16/2024 Essential hypertension Obesity PMB (postmenopausal bleeding) 05/16/2024 Primary generalized (osteo)arthritis Sleep apnea Thickened endometrium 05/16/2024 FAMILY HISTORY Problem Relation Age of Onset Heart Attack Mother Macular Degen Mother Cataract Mother Uterine Fibroids Mother Arthritis Mother Obesity Mother Uterine Cancer Mother Arthritis Father Hearing Loss Father Inherited Eye Disease Father Hypertension Father other (atrial fib) Sister Uterine Fibroids Sister Heart Attack Brother other (atrial fib) Brother Colon Cancer Maternal Grandmother Obesity Paternal Grandmother Family history of breast, ovarian, uterine or colon cancer: No Family history of VTE: No SOCIAL HISTORY Social History Tobacco Use Smoking status: Never Smokeless tobacco: Never Vaping Use Vaping status: Never Used Substance Use Topics Alcohol use: Not Currently Drug use: Never Occupation: retired, RN Marital Status: , Andrew HEALTH MAINTENANCE: Last mammogram: 04/2024 Last colonoscopy: due for one this year ADVANCED CARE PLANNING: Does the patient have an advanced directive: Yes SUBJECTIVE/INTERVAL HISTORY: Santa Rahman reports that she feels well overall. Npted some incisional discomfort relieved with the use of tylenol and ibuprofen. Some umbilical incision clear drainage noted today. No vaginal bleeding or discharge. No shortness of breath, cough, or chest pain. No abdominal pain, nausea, vomiting, diarrhea, or constipation. No dysuria, gross hematuria, urinary frequency, urinary urgency, or incontinence. Her ECOG performance status is 1 (restricted in physically strenuous activity but ambulatory and able to carry out work of a light or sedentary nature). OBJECTIVE: Deferred for televisit. ASSESSMENT: 68yo with HTN and new diagnosis of FIGO gr 2 endometrial cancer. Grade 2 endometrial cancer, MMRp, POLE negative Office notes, Ultrasound images, pathology report from biopsy and pap were reviewed today. After review of patients medical and surgical history I recommend surgical staging with TLH,BSO,SLN. We discussed r/b/a of surgery in detail and informed consent was obtained. Patient interested in ECHO study participation 07/21/25 now s/p Total laparoscopic hysterectomy with bilateral salpingo-oophorectomy Uterus >250g (22 modifier, significant additional effort required due to BMI 61 and large fibroid uterus requiring minilaparotomy for specimen removal), Bilateral cervix injection of ICG for sentinel lymph node mapping, Bilateral pelvic sentinel lymph node biopsy, cystoscopy Pathology in process. HTN Currently on 4 anti-hypertensives PAT prior to surgery PLAN: Overall doing post operatively. Discomfort noted to incision sites, relieved with the use of Tylenol/ibuprofen. Some umbilical incision drainage today noted- clear discharge. Will continue to monitor. Deja Nunez APRN.CNP CC: Sera Reddy MD Total time spent: 6 min PCP: - Arleth Lau [address] [facility] [id number] - No primary care provider on file. (PCP) documented in this encounter [facility] 07-28-2024 Note HNO ID: [id number] Author: DEJA NUNEZ APRN.AC Service: ? Author Type: Nurse Practitioner Type: Progress Notes Filed: 07/28/2024 13:44 Note Text: TELEVISIT PROGRESS NOTE I have communicated my name and active licensure. The patient's identity and physical location were verified at the time of this visit. Either the patient or their legal parts sales representative has been informed of the risks and benefits of -- and alternatives to -- treatment through a remote evaluation and consents to proceed with the evaluation remotely. This is a telephone encounter initiated for an established patient, parent or guardian is within the previous 7 days, leading to an Evaluation AND Management service or procedure within the next 24 hours or soonest available appointment and therefore will be no charge to the patient. Patient name and birthday verified: Yes Location of patient: Home Persons Present: patient DATE OF SERVICE: 07/28/2024 REASON FOR VISIT: Post op PROBLEM: Santa Rahman is a consult from Dr. Lau for evaluation of endometrial cancer. HPI: Ms. Rahman is a 68 year old female who has a past medical history of Abnormal ultrasound of endometrium (05/16/2024), Essential hypertension, Obesity, PMB (postmenopausal bleeding) (05/16/2024), Primary generalized (osteo)arthritis, Sleep apnea, and Thickened endometrium (05/16/2024).Patient reports started having postmenopausal bleeding intermittently since August 2023. Reports light spotting for a few days. Santa presented to [facility] with complaints of PMB. Thickened endometrium noted on US. 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 Patient presents to [facility] for further evaluation. Patient reports that currently still having some spotting, though very light. 07/21/2024 SURGERY: Total laparoscopic hysterectomy with bilateral salpingo-oophorectomy Uterus >250g (22 modifier, significant additional effort required due to BMI 61 and large fibroid uterus requiring minilaparotomy for specimen removal), Bilateral cervix injection of ICG for sentinel lymph node mapping, Bilateral pelvic sentinel lymph node biopsy, cystoscopy IMAGIN05/15/24 US: Impression The uterus is anteverted and measures 119 mm x 88 mm x 132 mm. The endometrium is heterogenous, thickened with irregular cystic areas nd measures 13 mm. 1. Right lateral anterior wall subserous fibroid measures 69 mm x 91 mm x 68 mm. 2. Left lateral posterior wall subserous fibroid measures 53 mm x 59 mm x 50 mm. the right ovary is not visualized. The left ovary is not visualized. There is no free fluid visualized. 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 07/21/2024 In process HISTORIES: PAST GYNECOLOGIC HISTORY: OB History T0 L3 (all vaginal) SAB0 IAB0 Ectopic0 Multiple0 Live Births0 LMP: No LMP recorded. Patient is postmenopausal. Hormonal contraceptives: Yes, in 20s How lon years. HRT use: No. History of abnormal pap: No. Last pap: 06/19/24 negative Last HPV: 06/19/24 negative PAST SURGICAL HISTORY Procedure Laterality Date HYSTEROSCOPY, DIAGNOSTIC (SEPARATE hysteroscopy dANDc PAST MEDICAL HISTORY Diagnosis Date Abnormal ultrasound of endometrium 05/16/2024 Essential hypertension Obesity PMB (postmenopausal bleeding) 05/16/2024 Primary generalized (osteo)arthritis Sleep apnea Thickened endometrium 05/16/2024 FAMILY HISTORY Problem Relation Age of Onset Heart Attack Mother Macular Degen Mother Cataract Mother Uterine Fibroids Mother Arthritis Mother Obesity Mother Uterine Cancer Mother Arthritis Father Hearing Loss Father Inherited Eye Disease Father Hypertension Father other (atrial fib) Sister Uterine Fibroids Sister Heart Attack Brother other (atrial fib) Brother Colon Cancer Maternal Grandmother Obesity Paternal Grandmother Family history of breast, ovarian, uterine or colon cancer: No Family history of VTE: No SOCIAL HISTORY Social History Tobacco Use Smoking status: Never Smokeless tobacco: Never Vaping Use Vaping status: Never Used Substance Use Topics Alcohol use: Not Currently Drug use: Never Occupation: retired, RN Marital Status: , Andrew HEALTH MAINTENANCE: Last mammogram: 04/2024 Last colonoscopy: due for one this year ADVANCED CARE PLANNING: Does the patient have an advanced directive: Yes SUBJECTIVE/INTERVAL HISTORY: Santa Rahman reports that she feels well overall. Npted some incisional discomfort relieved with the use of tylenol and ibuprofen. Some umbilical incision clear drainage noted today. No vaginal bleeding or discharge. No shortne (more content not included)... [facility] 07-21-2024 Note HNO ID: [id number] Author: JUAN CARLOS PREEZ SRNA Service: ? Author Type: Student Type: Anesthesia Procedure Notes Filed: 07/21/2024 08:59 Note Text: ANESTHESIOLOGY PROCEDURE NOTE PIV General Information Procedure Start Time/Medication Administration: 07/21/2024 8:00 AM Procedure End Time: 07/21/2024 8:01 AM Patient Location: OR Staffing STOCK PATCH SAWYER: Sarah Mcelroy APRN.STOCK PATCH SAWYER Performed by: STOCK PATCH SAWYER Preparation Sterility Preparation: hand hygiene performed prior to procedure, surgical cap used, mask used, skin prep agent completely dried prior to procedure Site Prep: alcohol Procedure Details Indication: need for IV access Needle Size/Type: 18 gauge angiocath Orientation: Right Location: Hand Imaging Guidance Used: No SIGNATURE: SIRIA Kapoor PATIENT NAME: Santa Rahman DATE: July 21, 2024 TIME: 8:58 AM CSN: [id number] [facility] 07-21-2024 Note HNO ID: [id number] Author: JUAN CARLOS PEREZ SRNA Service: ? Author Type: Student Type: Anesthesia Procedure Notes Filed: 07/21/2024 08:56 Note Text: ANESTHESIOLOGY PROCEDURE NOTE Airway General Information Procedure Start Time/Medication Administration: 07/21/2024 7:45 AM Procedure End Time: 07/21/2024 7:45 AM Patient location during procedure: OR Timeout Performed Pre-procedure: timeout performed Consent Obtained: Yes Patient identity confirmed: arm band, care prepared foods production team member and patient Staffing Anesthesiologist: Octavia Hong MD SRNA: Juan Carlos Perez SRNA Performed by: SIRIA Indications and Patient Condition Indications for airway management: anesthesia and airway protection Preoxygenated: yes anesthesia circuit Patient position: sniffing Method: asleep Airway Accessory: oral airway Final Airway Details Final airway type: endotracheal airway Final Endotracheal Airway: ETT Cuffed: yes Successful intubation technique: video laryngoscopy Devices used: Palmer Endotracheal tube insertion site: oral Blade size: #3 ETT size (mm): 7.0 Measured from: teeth Measurement (cm): 21 Placement verified by: capnometry Cormack-Lehane Classification: grade I - full view of glottis Number of attempts at approach: 1 SIGNATURE: SIRIA Kapoor PATIENT NAME: Santa Rahman DATE: July 21, 2024 TIME: 8:55 AM CSN: [id number] [facility] 07-21-2024 Note HNO ID: [id number] Author: MARGARIAT DUNN, Research Coordinator Service: ? Author Type: Registered Nurse Type: Progress Notes Filed: 07/21/2024 07:10 Note Text: IRB#: [id number] Study name: Leveraging Methylated DNA Markers (MDMs) in the Detection of Endometrial Cancer, Ovarian Cancer, and Cervical Cancer: a Phase II Clinical Study (ECHO) PI: Dr. Siegel Visit: Surgery Date: 21JUL2024 Reviewed study participation in cohort #2 with patient. Consent signed at previous visit on 10JUL2024. VS obtained All study procedures were completed per protocol. Patient was provided instruction regarding tampon collection. Tampon and blood collection completed per protocol. Tampon dwell duration: 34 minutes (insert time 0544/ removal time 0618) Lubricant used? No Blood collected at: 0557 Medications and past medical history reviewed as in Epic. AE according to version 5 https://ctep.cancer.gov/protocolDe velopment/electronic_applications/ docs/CTCAE_v 5_Quick_Reference_8.5x11.pdf Toxicity Grade Start Date Stop Date Relationship to Tampon Dwell/ Blood Draw Relationship to Clinically-Indicated Procedures (endometrial biopsy, gynecologic surgery, etc.) Comments Uterine hemorrhage 1 16JUL2024 Not related Not related Tampon and blood samples were processed as per study protocol and submitted to appropriate study lab. Patient to contact research with any questions. Margarita Dunn, Research Coordinator [facility] 07-21-2024 History of Present illness Narrative IRB#: [id number] Study name: Leveraging Methylated DNA Markers (MDMs) in the Detection of Endometrial Cancer, Ovarian Cancer, and Cervical Cancer: a Phase II Clinical Study (ECHO) PI: Dr. Siegel Visit: Surgery Date: 21JUL2024 Reviewed study participation in cohort #2 with patient. Consent signed at previous visit on 10JUL2024. VS obtained All study procedures were completed per protocol. Patient was provided instruction regarding tampon collection. Tampon and blood collection completed per protocol. Tampon dwell duration: 34 minutes (insert time 0544/ removal time 0618) Lubricant used? No Blood collected at: 0557 Medications and past medical history reviewed as in Epic. AE according to version 5 https://ctep.cancer.gov/protocolDe velopment/electronic_applications/ docs/CTCAE_v5_Quick_Reference_8.5x 11.pdf Toxicity Grade Start Date Stop Date Relationship to Tampon Dwell/ Blood Draw Relationship to Clinically-Indicated Procedures (endometrial biopsy, gynecologic surgery, etc.) Comments Uterine hemorrhage 1 16JUL2024 Not related Not related Tampon and blood samples were processed as per study protocol and submitted to appropriate study lab. Patient to contact research with any questions. Margarita Dunn, Research Coordinator documented in this encounter [facility] 07-17-2024 History of Present illness Narrative Radiology Service Progress Note PATIENT NAME: Santa Rahman DATE OF SERVICE: July 17, 2024 TIME: 1:46 PM PATIENT IDENTITY VERIFICATION COMPLETED USING TWO (2) IDENTIFIERS: Name and Date of confirmed by patient verbally. FALL SCREENING: Has the patient had 2 falls in the last year or 1 fall with injury or currently using an Ambulatory Assistive Device (Walker, Cane, Wheelchair, Crutches, etc.)? Yes, Patient High Risk for Falls What interventions were put in place to prevent falls during this visit? Instructed Patient to Remain Seated (Not on Exam Table) Until Exam and Increased Observations by Caregivers PATIENT GENDER DATA: Female. status: : No status: NO. PATIENT RELEVANT IMPLANT DATA REVIEWED: Not Applicable PATIENT PRESENTS WITH AN IMPLANTABLE OR ATTACHED FIELD SERVICE SUPERVISOR: No RADIOLOGY DEPARTMENT: General X-ray: Exam(s) Completed: Chest X-Ray PERIPHERAL IV DATA: Not applicable SIGNED BY: CHON Jordan July 17, 2024 1:46 PM documented in this encounter [facility] 07-17-2024 Note HNO ID: [id number] Author: CARLOS ROSS CT Service: Radiology Author Type: Technologist Type: Progress Notes Filed: 07/17/2024 13:46 Note Text: Radiology Service Progress Note PATIENT NAME: Santa Rahman DATE OF SERVICE: July 17, 2024 TIME: 1:46 PM PATIENT IDENTITY VERIFICATION COMPLETED USING TWO (2) IDENTIFIERS: Name and Date of confirmed by patient verbally. FALL SCREENING: Has the patient had 2 falls in the last year or 1 fall with injury or currently using an Ambulatory Assistive Device (Walker, Cane, Wheelchair, Crutches, etc.)? Yes, Patient High Risk for Falls What interventions were put in place to prevent falls during this visit? Instructed Patient to Remain Seated (Not on Exam Table) Until Exam and Increased Observations by Caregivers PATIENT GENDER DATA: Female. status: : No status: NO. PATIENT RELEVANT IMPLANT DATA REVIEWED: Not Applicable PATIENT PRESENTS WITH AN IMPLANTABLE OR ATTACHED FIELD SERVICE SUPERVISOR: No RADIOLOGY DEPARTMENT: General X-ray: Exam(s) Completed: Chest X-Ray PERIPHERAL IV DATA: Not applicable SIGNED BY: CHON Jordan July 17, 2024 1:[address] [facility] 07-17-2024 Instructions Andrade Cole APRN.STORAGE MANAGER - 07/17/2024 12:42 PM EST Images from the original note were not included. [facility] PATIENT PREOPERATIVE INSTRUCTIONS Sera Reddy,* has scheduled you for your procedure at this surgery center: [facility] Scheduling Office: [phone] --[address] [place] [address]. Please read below carefully for your personalized instructions. Dietary Restrictions: - No solid food after midnight. - You may have 12 ounces of clear liquids (water, clear juices such as apple juice or gatorade, carbonated beverages, clear tea, black coffee, jello) until 2 hours before scheduled arrival at facility. No red/purple coloring and no creamer/sugar Medications: Unless instructed differently below, stay on all of your medications until your surgery. If you start any new medications after today's visit, please contact your surgeon. Pre-Surgery Med Instructions Medication Instructions amLODIPine (NORVASC) 10 mg tablet Take the day of surgery with a small sip of water Colestipol HCl 5 gram granules Do not take the day of surgery hydroCHLOROthiazide 25 mg tablet Do not take the day of surgery losartan (COZAAR) 100 mg tablet Do not take the day of surgery metoprolol tartrate, short acting, (LOPRESSOR) 50 mg tablet Take the day of surgery with a small sip of water If you start any new medications after today's visit, please contact the surgeon's office. If you are currently using a [id number] injectable or oral medication for diabetes or weight loss such as Dulaglutide (Trulicity), Exenatide (Byetta, Bydureon), Liraglutide (Victoza, Saxenda), Semaglutide (Ozempic, Wegovy, Rybelsus), or Tirzepatide (Mounjaro), the medicine should be stopped at least 7 days before surgery. These medicines can cause food to remain in your stomach for a very long time and increase the risks from surgery and anesthesia. Not stopping the medication for a long enough time may result in your surgery being rescheduled. Blood Thinning Medications: - Stop NSAIDS (Ibuprofen, Advil, Aleve, Motrin, Celebrex, Mobic, etc.) 7 days before surgery, as directed by your surgeon. - Stop Aspirin 7 days before surgery, as directed by your surgeon. - Stop ALL herbal and dietary supplements 7 days before surgery. - You may take Tylenol (Acetaminophen) or any of your pain medications that do not contain aspirin or NSAIDS as needed. Important Reminders: - Candy, mints, and tobacco products are NOT permitted the morning of surgery. - Hearing aids, dentures and glasses may be worn the morning of surgery. - NO jewelry, body piercings, makeup, hairpins or contacts are to be worn the day of surgery. If you develop symptoms such as a fever, cold, or flu, or have other changes to your health within TWO DAYS of scheduled surgery or the morning of surgery, please contact the surgery center above. Personal Belongings: -Please have photo ID and insurance cards. -If you do not have a copy of advance directives on file with us, please bring a copy with you on the day of surgery. - Leave ALL valuables and money at home or with family members. For Outpatient Procedures: - YOU MUST HAVE A RESPONSIBLE BRIQUETTE OPERATOR TAKE YOU HOME. A NETWORK/TELECOM ENGINEER OR CNC LATHE PROGRAMMER CANNOT BE MADE A RESPONSIBLE BRIQUETTE OPERATOR. - We recommend that a responsible person stays with you overnight to take care of you. - You cannot stay in a hotel alone after outpatient surgery. You will not be permitted to have your surgery, if you do not have someone to take care of you. Arrival Time for Surgery: - To obtain your arrival time for surgery, call your physician's office the day before your surgery. - If your surgery is scheduled for Sunday, call the Sunday before. Your surgeon s ladle watcher will tell you what time to call the office. - If you have not reached the departmental ladle watcher by 5 P.M., call [phone] after 5 P.M. the day before your surgery. Please be aware that emergency situations arise, which may delay or change your surgical time. If this happens, we will notify you as soon as possible and regret any inconvenience. If you already have an Advance Directive, please fax a copy to [phone] or email to for it to be added to your chart. If you do not have an Advance Directive, you can find the appropriate form and more information at [email or web address]. We recommend that you complete the Advance Directive form found on the website and bring it with you the day of your surgery. It can be witnessed and scanned into your chart that day. Andrade Cole APRN.AC documented in this encounter [facility] 07-17-2024 History and physical note Images from the original note were not included. [facility] HISTORY AND PHYSICAL EXAMINATION SERVICE DATE: 07/17/2024 SERVICE TIME: 1:49 PM PRIMARY CARE PHYSICIAN: No primary care provider on file. Assessment Patient has the following medical conditions which may affect inés-operative course: Incomplete left bundle branch block (LBBB) Assessment: per today's EKG, no EKG's in epic to compare, pt states she believes this has been chronic on her EKG and had a work up completed by her PCP, records requested Essential hypertension, benign Assessment: controlled on rx Bilateral leg edema Assessment: on rx, chronic, pt states was told it was not lymphedema by PCP MORGAN (obstructive sleep apnea) Assessment: c/w CPAP Morbid obesity (HCC) Assessment: Body mass index is 61.08 kg/m . Zaldivar Activity Status Index: METS: Walk indoors, such as around the house (1.75 METs) Do light work around the house, such as dusting or washing dishes (2.70 METs) Take care of self; that is eating, dressing, bathing, using the toilet (2.75 METs) Walk a block or two on level ground (2.75 METs) Do moderate work around the house, such as vacuuming, sweeping floors, or carrying in groceries (3.50 METs) Do yardwork, such as raking leaves, weeding, or pushing a power mower (4.50 METs) DASI Score: 17.95 (With crutches 2/2 weight BMI 61 and bilateral knee pain) Patient denies any chest pain or undue shortness of breath with the above physical activity. Clinical Frailty Scale: 4. Apparently vulnerable STOP-Bang Score: Snores loudly Has or is being treated for high blood pressure BMI greater than 35 kg/m^2 Patient over 50 years old Has a large neck Denies feeling tired, fatigued, or sleepy during the daytime Has not been observed to stop breathing or choking/gasping during sleep Non-male patient STOP-Bang Score: 5 [id number] Score: Age: 65-74 Sex: female CHF history: No Hypertension history: Yes Stroke/TIA/thromboembolism history: No Vascular disease history: No Diabetes history: No [id number] Score: 3 ARISCAT Score: Age: 51-80 Preoperative SpO2: 91-95% Respiratory infection in the last month: No Preoperative anemia: No Surgical incision: upper abdominal Duration of surgery: >3 hrs Emergency procedure: No ARISCAT Score: 49 ANESTHESIA FINDINGS: Intubation History: No history of difficult intubation Significant Anesthesia Considerations: none Airway History: No history of difficult airway I - PHYSICAL EVALUATION AIRWAY Patient intubated: No. Tracheostomy tube not present Mallampati: III. TM distance: >3 FB. Neck ROM: full ROM without neurological symptoms. Mouth opening: adequate. Short neck: no. Thick neck: yes Russell present: no Lip Bite Test: I Microretrognathia/Micronagthia/Rec essed Chin: No DENTAL Dental findings: teeth intact. Additional comments: Implants/sides/back. II - ANESTHESIA PLAN Anesthetic Plan: other Beta Marty Monitoring Plan Post Procedure Analgesic Plan Prepared for Surgery: optimally prepared for surgery, pending [see comment]. EKG and labs pending Cardiac testing records requested from PCP's office CONSULTS: Patient does not require consults for optimization at this time Planned Anesthetic: other anesthesia choice The Following Tests/Procedures Have Been Initiated: No orders of the defined types were placed in this encounter. REASON FOR VISIT: Santa Rahman is a 68 year old female who is scheduled for Procedure(s): LAPAROSCOPIC HYSTERECTOMY TOTAL FOR UTERUS 250 G OR LESS W/REMOVAL TUBE(S) AND/OR OVARY(S) (Bilateral) INTRAOPERATIVE ID OF SENTINEL LYMPH NODE(S) INCL'D INJECTION OF NON-RAD DYE WHEN PERFORMED (Bilateral) at the request of Dr. Sera Reddy for consultation. My final recommendation will be communicated back to the requesting physician by way of shared medical record or letter. Subjective The patient has the following: COVID-19 Immunization Status Overdue - Covid-19 Vaccine ( season) Overdue since 04/27/2024 07/26/2021 Imm Admin: COVID-19 original vaccine, full dose, monovalent (MODERNA) 10/04/2020 Imm Admin: COVID-19 original vaccine, full dose, monovalent (MODERNA) 09/03/2020 Imm Admin: COVID-19 original vaccine, full dose, monovalent (MODERNA) Only the first 3 history entries have been loaded, but more history exists. CHIEF COMPLAINT: Pre-op exam HPI: Santa Rahman is a 68 year old seen for PAC due to scheduled above surgery because of endometrial cancer. 06/30/2024, Dr. Sera Reddy HPI: Ms. Rahman is a 68 year old female who has a past medical history of Abnormal ultrasound of endometrium (05/16/2024), Essential hypertension, Obesity, PMB (postmenopausal bleeding) (05/16/2024), Primary generalized (osteo)arthritis, Sleep apnea, and Thickened endometrium (05/16/2024). Patient reports started having postmenopausal bleeding intermittently since August 2023. Reports light spotting for a few days. Santa presented to [facility] with complaints of PMB. Thickened endometrium noted on US. 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 Patient presents to [facility] for further evaluation. Patient reports that currently still having some spotting, though very light. IMAGIN05/15/24 US: Impression The uterus is anteverted and measures 119 mm x 88 mm x 132 mm. The endometrium is heterogenous, thickened with irregular cystic areas nd measures 13 mm. 1. Right lateral anterior wall subserous fibroid measures 69 mm x 91 mm x 68 mm. 2. Left lateral posterior wall subserous fibroid measures 53 mm x 59 mm x 50 mm. the right ovary is not visualized. The left ovary is not visualized. There is no free fluid visualized. REVIEW OF SYSTEMS: General: No weight loss, malaise or fevers. Neurological: No history of TIA's, stroke, PEG DRIVER tumor, impaired sensorium, hemiplegia, paraplegia or quadraplegia. No neurological symptoms or problems. Respiratory: Positive for: obstructive sleep apnea and CPAP/BiPAP compliant. Negative for: asthma, COPD, current cough, dyspnea, pneumonia within 6 weeks, tobacco use and URI < 2 weeks. Cardiovascular: Positive for: arrhythmia (Incomplete LBBB), hyperlipidemia (diet controlled) and hypertension (on rx) Negative for: abdominal aortic aneurysm, AICD/PPM, angina, anticoagulation therapy, atrial fibrillation, CAD, chest pain, CHF, congenital heart defect, DVT/PE, recent NE, murmur/valvular heart disease, PTCA, PVD, open heart surgery and valve surgery. GI: Biliary, on rx. No history of GI symptoms or problems. No history of esophageal varices, recent ascites, or ETOH greater than 2 drinks per day. : No history of dysuria, frequency or incontinence, stones or chronic kidney disease. No difficulty urinating, nocturia > 1 time per night or hematuria. [facility]: See HPI. Negative for: vaginal bleeding and vaginal discharge. Endocrine: No history of diabetes. Has not taken steroids within the past 30 days. No history of endocrinological symptoms or problems. Hematology: No history of bleeding or clotting disorder. Patient is not taking anti-coagulation or platelet medications. No history of hematological symptoms or problems. Oncology: See HPI. Psych: No history of psychiatric symptoms or problems. Musculoskeletal: Positive for: joint pain. Skin: Negative for lesions, rash and itching. Implanted Devices: No implanted devices. PAST MEDICAL HISTORY Diagnosis Date Abnormal ultrasound of endometrium 05/16/2024 Essential hypertension Obesity PMB (postmenopausal bleeding) 05/16/2024 Primary generalized (osteo)arthritis Sleep apnea Thickened endometrium 05/16/2024 PAST SURGICAL HISTORY Procedure Laterality Date HYSTEROSCOPY, DIAGNOSTIC (SEPARATE hysteroscopy d&c FAMILY HISTORY Problem Relation Age of Onset Heart Attack Mother Macular Degen Mother Cataract Mother Uterine Fibroids Mother Arthritis Mother Obesity Mother Uterine Cancer Mother Arthritis Father Hearing Loss Father Inherited Eye Disease Father Hypertension Father other (atrial fib) Sister Uterine Fibroids Sister Heart Attack Brother other (atrial fib) Brother Colon Cancer Maternal Grandmother Obesity Paternal Grandmother Social History Tobacco Use Smoking status: Never Smokeless tobacco: Never Vaping Use Vaping status: Never Used Substance Use Topics Alcohol use: Not Currently Drug use: Never Prior to Admission medications as of 07/17/24 1250 Medication Sig Last Dose Taking amLODIPine (NORVASC) 10 mg tablet Take 10 mg by mouth once daily. Taking Yes Colestipol HCl 5 gram granules Take 5 g by mouth once daily. Taking Yes hydroCHLOROthiazide 25 mg tablet Take 25 mg by mouth once daily. Taking Yes losartan (COZAAR) 100 mg tablet 100 mg once daily. Taking Yes metoprolol tartrate, short acting, (LOPRESSOR) 50 mg tablet Take 100 mg by mouth two times a day. Taking Yes No medication comments found. ALLERGIES No Known Allergies Objective PHYSICAL EXAM: General: alert and oriented (x3), healthy appearance and morbidly obese. Pertinent negatives noted - not distressed. Antalgic gait with crutches. Skin: normal color, no rash or lesions. HEENT: EOM intact and pupils equal round. Pertinent negatives noted - no carotid bruit. Cardiovascular: regular rate and rhythm, normal S1 and S2, no rub, murmurs, or gallop. Respiratory: normal breath sounds, no wheezes or crackles. No chest wall deformity or tenderness. Abdomen: soft. Pertinent negatives noted - not tender. Extremities: Positive for edema. Neurological: normal cognition and motor skills. Positive for abnormal gait. PAIN ASSESSMENT: VITALS: BP 171/68 Pulse 60 Temp (Src) 98.7 (Temporal) Resp 16 Ht 5' 5 (1.65m) Wt 367 lb 1.1 oz (166.5kg) SpO2 95% BMI 61.08 kg/(m^2). Diagnostic tests reviewed for today's visit: Lab Value Units Date High Low HB No results within date range. HCT No results within date range. WBC No results within date range. PLT No results within date range. NA No results within date range. K No results within date range. GLUC No results within date range. BUN No results within date range. CREAT No results within date range. PTSEC No results within date range. INR No results within date range. APTT No results within date range. ALT No results within date range. AST No results within date range. TBILI No results within date range. TSH No results within date range. Lab Value Units Date High Low HCGQT No results within date range. UHCG No results within date range. HCG, BODY* No results within date range. Lab Value Units Date High Low ABORHD No results within date range. ABSCREEN No results within date range. No results found for: HBA1C No results found for this or any previous visit (from the past 8760 hour(s)). No results found for this or any previous visit (from the past 77679 hour(s)). Instructions Given to Patient: Instructions located in the after visit summary. Patient given verbal and written preop instructions and voices comprehension and compliance. SIGNATURE: Andrade Cole APRN.CNP PATIENT NAME: Santa Rahman DATE: July 17, 2024 TIME: 12:40 PM PAGER/CONTACT #: [facility] 07-17-2024 History and physical note Images from the original note were not included. [facility] Pre[facility]Anest[facility] HISTORY AND PHYSICAL EXAMINATION SERVICE DATE: 07/17/2024 SERVICE TIME: 1:49 PM PRIMARY CARE PHYSICIAN: No primary care provider on file. Assessment Patient has the following medical conditions which may affect inés-operative course: Incomplete left bundle branch block (LBBB) Assessment: per today's EKG, no EKG's in epic to compare, pt states she believes this has been chronic on her EKG and had a work up completed by her PCP, records requested Essential hypertension, benign Assessment: controlled on rx Bilateral leg edema Assessment: on rx, chronic, pt states was told it was not lymphedema by PCP MORGAN (obstructive sleep apnea) Assessment: c/w CPAP Morbid obesity (HCC) Assessment: Body mass index is 61.08 kg/m . Zaldivar Activity Status Index: METS: Walk indoors, such as around the house (1.75 METs) Do light work around the house, such as dusting or washing dishes (2.70 METs) Take care of self; that is eating, dressing, bathing, using the toilet (2.75 METs) Walk a block or two on level ground (2.75 METs) Do moderate work around the house, such as vacuuming, sweeping floors, or carrying in groceries (3.50 METs) Do yardwork, such as raking leaves, weeding, or pushing a power mower (4.50 METs) DASI Score: 17.95 (With crutches 2/2 weight BMI 61 and bilateral knee pain) Patient denies any chest pain or undue shortness of breath with the above physical activity. Clinical Frailty Scale: 4. Apparently vulnerable STOP-Bang Score: Snores loudly Has or is being treated for high blood pressure BMI greater than 35 kg/m^2 Patient over 50 years old Has a large neck Denies feeling tired, fatigued, or sleepy during the daytime Has not been observed to stop breathing or choking/gasping during sleep Non-male patient STOP-Bang Score: 5 [id number] Score: Age: 65-74 Sex: female CHF history: No Hypertension history: Yes Stroke/TIA/thromboembolism history: No Vascular disease history: No Diabetes history: No [id number] Score: 3 ARISCAT Score: Age: 51-80 Preoperative SpO2: 91-95% Respiratory infection in the last month: No Preoperative anemia: No Surgical incision: upper abdominal Duration of surgery: >3 hrs Emergency procedure: No ARISCAT Score: 49 ANESTHESIA FINDINGS: Intubation History: No history of difficult intubation Significant Anesthesia Considerations: none Airway History: No history of difficult airway I - PHYSICAL EVALUATION AIRWAY Patient intubated: No. Tracheostomy tube not present Mallampati: III. TM distance: >3 FB. Neck ROM: full ROM without neurological symptoms. Mouth opening: adequate. Short neck: no. Thick neck: yes Russell present: no Lip Bite Test: I Microretrognathia/Micronagthia/Rec essed Chin: No DENTAL Dental findings: teeth intact. Additional comments: Implants/sides/back. II - ANESTHESIA PLAN Anesthetic Plan: other Beta Marty Monitoring Plan Post Procedure Analgesic Plan Prepared for Surgery: optimally prepared for surgery, pending [see comment]. EKG and labs pending Cardiac testing records requested from PCP's office CONSULTS: Patient does not require consults for optimization at this time Planned Anesthetic: other anesthesia choice The Following Tests/Procedures Have Been Initiated: No orders of the defined types were placed in this encounter. REASON FOR VISIT: Santa Rahman is a 68 year old female who is scheduled for Procedure(s): LAPAROSCOPIC HYSTERECTOMY TOTAL FOR UTERUS 250 G OR LESS W/REMOVAL TUBE(S) AND/OR OVARY(S) (Bilateral) INTRAOPERATIVE ID OF SENTINEL LYMPH NODE(S) INCL'D INJECTION OF NON-RAD DYE WHEN PERFORMED (Bilateral) at the request of Dr. Sera Reddy for consultation. My final recommendation will be communicated back to the requesting physician by way of shared medical record or letter. Subjective The patient has the following: COVID-19 Immunization Status Overdue - Covid-19 Vaccine ( season) Overdue since 04/27/2024 07/26/2021 Imm Admin: COVID-19 original vaccine, full dose, monovalent (MODERNA) 10/04/2020 Imm Admin: COVID-19 original vaccine, full dose, monovalent (MODERNA) 09/03/2020 Imm Admin: COVID-19 original vaccine, full dose, monovalent (MODERNA) Only the first 3 history entries have been loaded, but more history exists. CHIEF COMPLAINT: Pre-op exam HPI: Santa Rahman is a 68 year old seen for PAC due to scheduled above surgery because of endometrial cancer. 06/30/2024, Dr. Sera Reddy HPI: Ms. Rahman is a 68 year old female who has a past medical history of Abnormal ultrasound of endometrium (05/16/2024), Essential hypertension, Obesity, PMB (postmenopausal bleeding) (05/16/2024), Primary generalized (osteo)arthritis, Sleep apnea, and Thickened endometrium (05/16/2024). Patient reports started having postmenopausal bleeding intermittently since August 2023. Reports light spotting for a few days. Santa presented to [facility] with complaints of PMB. Thickened endometrium noted on US. 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 Patient presents to [facility] for further evaluation. Patient reports that currently still having some spotting, though very light. IMAGIN05/15/24 US: Impression The uterus is anteverted and measures 119 mm x 88 mm x 132 mm. The endometrium is heterogenous, thickened with irregular cystic areas nd measures 13 mm. 1. Right lateral anterior wall subserous fibroid measures 69 mm x 91 mm x 68 mm. 2. Left lateral posterior wall subserous fibroid measures 53 mm x 59 mm x 50 mm. the right ovary is not visualized. The left ovary is not visualized. There is no free fluid visualized. REVIEW OF SYSTEMS: General: No weight loss, malaise or fevers. Neurological: No history of TIA's, stroke, PEG DRIVER tumor, impaired sensorium, hemiplegia, paraplegia or quadraplegia. No neurological symptoms or problems. Respiratory: Positive for: obstructive sleep apnea and CPAP/BiPAP compliant. Negative for: asthma, COPD, current cough, dyspnea, pneumonia within 6 weeks, tobacco use and URI < 2 weeks. Cardiovascular: Positive for: arrhythmia (Incomplete LBBB), hyperlipidemia (diet controlled) and hypertension (on rx) Negative for: abdominal aortic aneurysm, AICD/PPM, angina, anticoagulation therapy, atrial fibrillation, CAD, chest pain, CHF, congenital heart defect, DVT/PE, recent NE, murmur/valvular heart disease, PTCA, PVD, open heart surgery and valve surgery. GI: Biliary, on rx. No history of GI symptoms or problems. No history of esophageal varices, recent ascites, or ETOH greater than 2 drinks per day. : No history of dysuria, frequency or incontinence, stones or chronic kidney disease. No difficulty urinating, nocturia > 1 time per night or hematuria. [facility]: See HPI. Negative for: vaginal bleeding and vaginal discharge. Endocrine: No history of diabetes. Has not taken steroids within the past 30 days. No history of endocrinological symptoms or problems. Hematology: No history of bleeding or clotting disorder. Patient is not taking anti-coagulation or platelet medications. No history of hematological symptoms or problems. Oncology: See HPI. Psych: No history of psychiatric symptoms or problems. Musculoskeletal: Positive for: joint pain. Skin: Negative for lesions, rash and itching. Implanted Devices: No implanted devices. PAST MEDICAL HISTORY Diagnosis Date Abnormal ultrasound of endometrium 05/16/2024 Essential hypertension Obesity PMB (postmenopausal bleeding) 05/16/2024 Primary generalized (osteo)arthritis Sleep apnea Thickened endometrium 05/16/2024 PAST SURGICAL HISTORY Procedure Laterality Date HYSTEROSCOPY, DIAGNOSTIC (SEPARATE hysteroscopy d&c FAMILY HISTORY Problem Relation Age of Onset Heart Attack Mother Macular Degen Mother Cataract Mother Uterine Fibroids Mother Arthritis Mother Obesity Mother Uterine Cancer Mother Arthritis Father Hearing Loss Father Inherited Eye Disease Father Hypertension Father other (atrial fib) Sister Uterine Fibroids Sister Heart Attack Brother other (atrial fib) Brother Colon Cancer Maternal Grandmother Obesity Paternal Grandmother Social History Tobacco Use Smoking status: Never Smokeless tobacco: Never Vaping Use Vaping status: Never Used Substance Use Topics Alcohol use: Not Currently Drug use: Never Prior to Admission medications as of 07/17/24 1250 Medication Sig Last Dose Taking amLODIPine (NORVASC) 10 mg tablet Take 10 mg by mouth once daily. Taking Yes Colestipol HCl 5 gram granules Take 5 g by mouth once daily. Taking Yes hydroCHLOROthiazide 25 mg tablet Take 25 mg by mouth once daily. Taking Yes losartan (COZAAR) 100 mg tablet 100 mg once daily. Taking Yes metoprolol tartrate, short acting, (LOPRESSOR) 50 mg tablet Take 100 mg by mouth two times a day. Taking Yes No medication comments found. ALLERGIES No Known Allergies Objective PHYSICAL EXAM: General: alert and oriented (x3), healthy appearance and morbidly obese. Pertinent negatives noted - not distressed. Antalgic gait with crutches. Skin: normal color, no rash or lesions. HEENT: EOM intact and pupils equal round. Pertinent negatives noted - no carotid bruit. Cardiovascular: regular rate and rhythm, normal S1 and S2, no rub, murmurs, or gallop. Respiratory: normal breath sounds, no wheezes or crackles. No chest wall deformity or tenderness. Abdomen: soft. Pertinent negatives noted - not tender. Extremities: Positive for edema. Neurological: normal cognition and motor skills. Positive for abnormal gait. PAIN ASSESSMENT: VITALS: BP 171/68 Pulse 60 Temp (Src) 98.7 (Temporal) Resp 16 Ht 5' 5 (1.65m) Wt 367 lb 1.1 oz (166.5kg) SpO2 95% BMI 61.08 kg/(m^2). Diagnostic tests reviewed for today's visit: Lab Value Units Date High Low HB No results within date range. HCT No results within date range. WBC No results within date range. PLT No results within date range. NA No results within date range. K No results within date range. GLUC No results within date range. BUN No results within date range. CREAT No results within date range. PTSEC No results within date range. INR No results within date range. APTT No results within date range. ALT No results within date range. AST No results within date range. TBILI No results within date range. TSH No results within date range. Lab Value Units Date High Low HCGQT No results within date range. UHCG No results within date range. HCG, BODY* No results within date range. Lab Value Units Date High Low ABORHD No results within date range. ABSCREEN No results within date range. No results found for: HBA1C No results found for this or any previous visit (from the past 8760 hour(s)). No results found for this or any previous visit (from the past 61450 hour(s)). Instructions Given to Patient: Instructions located in the after visit summary. Patient given verbal and written preop instructions and voices comprehension and compliance. SIGNATURE: Andrade Cole APRN.CNP PATIENT NAME: Santa Rahman DATE: July 17, 2024 TIME: 12:40 PM PAGER/CONTACT #: documented in this encounter [facility] 07-16-2024 Telephone encounter Note Called patient and confirmed surgery date 07/21/2024 and future appointments. Patient verbalized understanding. [facility] 07-16-2024 Miscellaneous Notes Called patient and confirmed surgery date 07/21/2024 and future appointments. Patient verbalized understanding. documented in this encounter [facility] 07-15-2024 Instructions Dayanna Jo LPN - 07/15/2024 8:40 AM EST Images from the original note were not included. [facility] PH[facility]ICIAN CONTACT INFORMATION Surgery Scheduling Office Surgeons: Dr. Mabel Siegel Dr. Alexandra Payne Dr. Lauri Rothman Dr. Neelima Jain Dr. Sera Reddy Dr. Iron Kunz Dr. Emanuel Ruodlph Dr. Mert Serra Dr. Camilo Palencia [facility] Nurse Practitioners: Lorena Castañeda, PERINATAL SOCIAL WORKER.AC Calzada, PERINATAL SOCIAL WORKER.AC Elias, PERINATAL SOCIAL WORKER.AC Barclay, PERINATAL SOCIAL WORKER.AC Lee, PERINATAL SOCIAL WORKER.AC Arthur, PERINATAL SOCIAL WORKER.STORAGE MANAGER After 4:30 pm or on holidays or weekends, call: or . Ask the wire photo operator news to page the [facility] oncologist sanitation manager. PRE-OPERATIVE CHECKLIST: PATIENT INSTRUCTIONS PRIOR TO SURGERY Our guidelines have changed, so please read these instructions carefully. Your surgery may be cancelled if you do not follow these instructions. MY ARRIVAL TIME IS: I have been instructed not to have any solid food to eat after midnight prior to my surgery (this includes no gum, mints, smoking). I am allowed to drink small amounts (up to 12 oz) of clear liquids up until 2 hours prior to my arrival time. Clear liquids include water, fruit juices without pulp, carbonated beverages (i.e. antoni diya), electrolyte beverages (i.e. Gatorade), clear tea and black coffee, clear broth, popsicles and jello. (No milk). No alcohol the day before or day of surgery. I will bring this binder to all pre and post-operative appointments AND day of surgery. MEDICATION STOPPAGE: Unless my surgeon tells me differently, I will STOP THESE MEDICATIONS 7 DAYS PRIOR TO SURGERY: (Motrin/ibuprofen/Naproxen/Aleve/A dvil), Aspirin, vitamin E, herbal medications, diet pills, and eovq-qaq-uwwyjjh medications. Tylenol (acetaminophen) is okay. I will not wear jewelry, body piercing(s), makeup, nail [place], hairpins, or contacts on the day of surgery. I am to leave valuables and money at home or with family members. If I am prescribed inhalers for breathing, I will use them and bring them to the hospital. Medication(s) to be taken on the morning of surgery with a few sips of water: If I am taking any of the following blood thinning medications - Aspirin, clopidogrel (Plavix), ticagrelor (Brilinta), prasugrel (Efficient), ticlodipine (Ticlid), warfarin (Coumadin), dibigatran (Pradaxa) or rivaroxaban (Xarelto) - I will discuss whether or not I should stop them before surgery with my surgeon. Discuss medication changes with your parts interpreter or primary care physician as well. If I stopped taking my blood-thinning medication, I will ask the surgeon when to resume taking it. If I am an outpatient, a responsible person will drive me home and it was suggested that someone stay with me for 24 hours. I understand that a business consult or cabdriver is NOT a responsible caregiver. Patients with diabetes, I will not take my morning diabetes medication (pills) on the morning of surgery. If I am on insulin, someone has gone over those instructions with me for the morning of surgery. I understand if my surgery is delayed, I will notify the check in desk that I have diabetes. See the Diabetic Guidelines Before Surgery in the patient education section. If I have Obstructive Sleep Apnea and use a CPAP/BiPAP machine, I will bring my mask, tubing, and machine with me on the day of surgery. Pain management education material found in Your Surgical Guide was reviewed with me. To find out my arrival time for surgery, I must call my mail machine operator after 2pm the day before surgery. Pre-operative instructions given by: PREOP INSTRUCTIONS THE DAY OF SURGERY/CHECK IN Report to DESK J1-9 for surgery. A map is located in Your Surgical Guide Book. The online version of the surgical guide book can be found at: [email or web address] The address is [address] [place] [address] INFECTION PREVENTION Please notify your doctor if you have any signs of an infection (i.e. fever, severe cough, nasal congestion, pain with urination, abnormal vaginal discharge, diarrhea, etc). Your surgeon will let you know if a bowel prep is needed before your surgery. If so, please see the attached instructions. Shower the night before surgery AND the morning of surgery with Hibiclens (provided by your surgeon). If you are allergic to Hibiclens or unable to obtain the Hibiclens, please wash with antibacterial soap. Wash your body from the neck down, focusing on your abdomen, belly button and external genitalia. Do not forget to scrub any skin folds and creases. No lotions, oils, creams, or powders after your shower. Underarm deodorant is okay. No shaving (abdominal or pubic hair) or douching the day before surgery. You may be asked to apply an antiseptic solution called Chlorhexidine Gluconate (CHG) which will be provided to you on arrival to the preop area. Hand washing is extremely important in preventing infection (for both you as the patient and for the caregivers). HOSPITALIZATION Before you leave the hospital, you typically need to be able to eat/drink, urinate, and have your pain controlled with oral medication. Your surgeon or other members of your surgeon s team will discuss any other specific medical issues related to your discharge with you. Your surgeon may order intermittent compression sleeves. These are massaging leg pumps to help prevent blood clots after surgery. See Your Surgical Guide Book for more information. It is also very important that you walk as soon as possible and as frequently as possible after surgery. This will help decrease your risk of blood clots, exercise your lungs and speed up your recovery after surgery. If you are admitted to the hospital overnight, you will be given an incentive spirometer, which is a breathing machine that will help make sure that you are taking deep breaths and expanding your lungs while in the hospital. See Your Surgical Guide Book for more information. [facility] TEAM At the [facility], we have a multidisciplinary team of caregivers that includes fellows, residents, nurse practitioners, physician assistants, clinical nurse specialists, nurses, medical assistants, patient care nursing assistants, social workers, protective services case worker and many others. We all have different roles and responsibilities but we are all here to help. POSTOP: LAPAROSCOPIC SURGERY WHAT TO EXPECT AT HOME Recovery from surgery is generally 2-6 weeks, but sometimes longer for more strenuous activity. It is normal to be very tired during this time. It is normal to have some drainage or a small amount of vaginal bleeding after surgery which may last up to 6 weeks. You will most likely experience gas pain, abdominal swelling, or shoulder pain for 24-72 hours after surgery. This is from the carbon dioxide gas put into your abdomen to better visualize your organs. A warm shower, heating pad, and/or walking may help. You will have 1-5 small incisions on your abdomen. There will be dissolvable stitches under your skin that do not need to be removed. You will also have surgical glue or steri-strips (paper tape) on the incisions. These may be removed when they start to fall off on their own, or in 7-10 days. ACTIVITY No heavy lifting/pushing/pulling for 4-6 weeks. Do not lift anything more than 10-15 lbs (such as laundry, groceries, children, pets), vacuum, push heavy doors or grocery carts, etc. You may climb stairs as tolerated. Do not put anything in the vagina for 6 weeks after surgery unless otherwise instructed by your doctor (including tampons, douching, sexual intercourse, etc). No driving for about 2-3 weeks after surgery, while you are taking narcotic pain medication, or until you feel that you are ready. Avoid sitting or lying in bed for more than 2 hours at a time while you are awake to reduce your risk of blood clots. Return to work when directed by your surgeon. Please contact your surgeon s office if any FMLA or other paperwork is needed. WOUND CARE You will have 1-5 small incisions on your abdomen. If you have a dressing (big, white, square band-aid), please remove it 24 hour after your surgery. You may have surgical glue or steri-strips on the incisions and these may be removed once they start to fall off. Shower daily after surgery. Wash your incision with antibacterial soap (such as Dial). Pat your incision dry with a clean towel. No tub baths until wound is completely healed. Wash your hands frequently, especially before touching your incision, changing any dressings, after using the restroom, and before eating. PAIN MANAGEMENT You will be given prescriptions for a variety of pain medications (opioid and non-opioid) before you leave the hospital. Surgery will cause pain and everyone has a different pain tolerance. It is safer to find the right combination and amount of medicine to manage your pain. We recommend that you take the non-opioid medication (acetaminophen and ibuprofen) on a regular schedule after surgery. You can take these medications on an alternating schedule so that you are taking one or the other every 3-4 hours. The maximum total daily dose of acetaminophen is 4,000mg and the maximum total daily dose of ibuprofen is 2,400mg. Take the opioid prescription ONLY when your pain is severe and never take more pills or more frequent doses than prescribed. Opioids (narcotics) can cause serious side effects. The risks increase the longer they are used. Taking opioids may cause: constipation, drowsiness, itching, nausea/vomiting. More serious side effects of opioids may include: addiction or dependence, life threatening overdose, or dizziness leading to falls/injury. Keep your pain medication locked in a safe place. Never share your pain medication with others. If you have any remaining opioid pills after you recover from surgery, please bring them to a medication disposal station (located in many of the [facility] pharmacies). Do not flush them down the toilet. Constipation is a common problem after surgery. You should take a stool softener (i.e. colace) twice a day, especially if you are taking opioids. If a stool softener alone is not helping to manage your constipation, you can also take Miralax and/or milk of magnesia as needed. WHEN TO CALL THE DOCTOR Call your doctor if you have any of the following symptoms: Fever (>100.4 F or 38.0 C) or chills. Incision problems such as redness, warmth, swelling, or foul smelling drainage. Severe nausea or persistent vomiting. Bright red vaginal bleeding (soaking >1 pad/hour) or foul smelling vaginal drainage. Severe pain not relieved with pain medication. Pain and swelling in your legs, especially if it is only on one side and not the other. Pain with urination, cloudy urine, or foul smelling urine. Or if you have any other problems or questions. CALL 911 or go to the ED if you have any shortness of breath, difficulty breathing, or chest pain. Advance Directives Every adult has the right to direct their own medical care. Having an advance directive on file helps to ensure that you receive the care you want if a medical condition or injury renders you unable to make decisions or communicate. Forms can be found on the [facility] Advance Directives site. You do not need a pump assembler to complete advance directive documents. [email or web address] Talking about end-of-life issues is difficult, but it truly is a gift to your loved ones. We suggest using The Conversation Project (theNavPrescienceationproject.org) to help guide you through discussing and thinking about your wishes/preferences, goals and values and completing your advance directive. After you complete the documents, talk to those people who may be involved with your healthcare decision making, and give them a copy of your forms to make sure your wishes are followed. Please bring a copy of your advance directive documents to your next appointment, or email to [email or web address] as an attachment in either PDF, TIFF, or JPEG format. You can also mail to: [facility] Information Management, Ab7 Advance Directive Processing [id number] [place] [id number] documented in this encounter [facility] 07-15-2024 Note HNO ID: [id number] Author: DAYANNA JO LPN Service: ? Author Type: LICENSED NURSE Type: Progress Notes Filed: 07/15/2024 08:53 Note Text: DATE OF SERVICE: 07/15/2024 PROBLEM: Santa Rahman presents for pre-op teaching. PRE-OP DIAGNOSIS: Endometrial cancer (HCC) [C54.1] SCHEDULED SURGERY AND DATE: LAPAROSCOPIC HYSTERECTOMY TOTAL FOR UTERUS 250 G OR LESS W/REMOVAL TUBE(S) AND/OR OVARY(S) [67491 (CPT?)] 07/21/2024 PRIMARY SURGEON: Dr Sera Reddy NURSING PREOP ASSESSMENT: Fevers, chills, cough, or nasal congestion: No Vaginal itching, burning, discharge, or odor: No Pain with urination, frequency, urgency, cloudy or foul smelling urine: No If yes to any of the above then MD notified: Not Applicable ADVANCED CARE PLANNING: Does the patient have an advanced directive: No Does [facility] have a copy of the patient's advanced directive: No Was advanced directive given to the patient: Yes PATIENT LEARNING ASSESSMENT: Individual patient/family learning needs evaluated and addressed: Yes Cognitive ability: Alert and oriented Motivation to learn: Eager Interested Factors affecting learning: None Physical limitations affecting learning: None Patient learns best by: Multiple Methods Method of instruction: Individual instruction Written instruction/Handouts Verbal instruction Instructions provided to: Patient via telephone. Written material provided prior to education appointment. Family support: High - Very involved in pt care PRE- AND POST-OPERATIVE TEACHING Pre-operative teaching and supplemental material provided and reviewed with patient: Your Surgical Guide Book Map Written pre-op and post-op instructions Antibacterial soap: given to patient prior to teaching appointment. Pre-operative instructions provided and reviewed with patient/family: No eating, drinking, or smoking after midnight prior to surgery unless otherwise directed No alcohol the day before surgery Medications as prescribed by anesthesia, internal medicine, surgeon, or CHURNER Stop NSAIDs, Aspirin (ASA), vitamins, herbal supplements, herbal teas, and diet pills 7-10 days prior to surgery OK to take tylenol prn pain unless otherwise directed by physician Call surgery coordinators if any other questions about surgery date or pre-op appointments Bowel prep instructions: NPO after midnight Day of surgery instructions provided and reviewed with patient/family: Arrival time (call surgical coordinators on the office day prior to surgery for verification) No jewelry, body piercing, makeup, contacts, lotions, nail st lucian on fingers, or anything in hair on arrival to surgery Wear low healed shoes and loose fitting clothing Leave all valuables at home or with a family member Directions to [facility] and [facility] Parking/parking validation on the day prior to surgery Admission/check in (Report to DESK J1-9 for surgery) Holding area Placement of IV Surgical positioning Family waiting area Surgical recovery room Post-operative instructions provided and reviewed with patient/family: SEE PATIENT INSTRUCTION SECTION FOR DETAILS. ACTIVITY - No heavy lifting (>5-10 lbs), no pushing/pulling, OK to climb stairs DRIVING - No driving for 3 weeks unless prior approval from MD, OK to ride in a car. DIET - Advance diet as tolerated and as ordered by MD, drink 8 glasses of water a day, eat a diet high in protein and fiber unless otherwise directed by MD. CATHETER - Will be inserted during surgery, you may go home with a catheter for 7-10 days and will have to come back to the office for a voiding trial, UTI symptoms reviewed and patient instructed to notify MD of any of these symptoms. INCISION CARE - Keep incision clean and dry, ellie to be removed 7-10 days after surgery, steristrips do not need to be removed by MD BATHING - OK to shower after surgery unless otherwise directed by MD, no tub baths. PAIN MEDICATION - IV pain medication after surgery, IV VOCATIONAL REHABILITATION TEACHER if ordered by MD, discharged home with a prescription for PO pain medication, pain management after surgery, side effects of pain medication (including constipation, dizziness, drowsiness, and medication interactions). VAGINAL CARE - Pelvic rest x6 weeks unless otherwise directed by MD. DVT PROPHYLAXIS - Early ambulation, SCDs, injectable anticoagulants (heparin, lovenox, etc) RESPIRATORY - Incentive spirometer, coughing/deep breathing exercises, ambulation. RETURN TO WORK - As directed by physician, please send any FMLA papers to physician's medical assistant secretary. SYMPTOMS TO NOTIFY MD - Fever, chills, nausea, vomiting, increased or severe pain, heavy vaginal bleeding, foul smelling vaginal drainage, pain or swelling in extremities. URGENT SYMPTOMS - Call 911 or go to ER if any shortness of breath, difficulty breathing, or chest pain. HOW TO CONTACT PHYSICIAN - Physician's office phone number given to patient, (more content not included)... [facility] 07-15-2024 History of Present illness Narrative DATE OF SERVICE: 07/15/2024 PROBLEM: Santa Rahman presents for pre-op teaching. PRE-OP DIAGNOSIS: Endometrial cancer (HCC) [C54.1] SCHEDULED SURGERY AND DATE: LAPAROSCOPIC HYSTERECTOMY TOTAL FOR UTERUS 250 G OR LESS W/REMOVAL TUBE(S) AND/OR OVARY(S) [48604 (CPT )] 07/21/2024 PRIMARY SURGEON: Dr Sera Reddy NURSING PREOP ASSESSMENT: Fevers, chills, cough, or nasal congestion: No Vaginal itching, burning, discharge, or odor: No Pain with urination, frequency, urgency, cloudy or foul smelling urine: No If yes to any of the above then MD notified: Not Applicable ADVANCED CARE PLANNING: Does the patient have an advanced directive: No Does [facility] have a copy of the patient's advanced directive: No Was advanced directive given to the patient: Yes PATIENT LEARNING ASSESSMENT: Individual patient/family learning needs evaluated and addressed: Yes Cognitive ability: Alert and oriented Motivation to learn: Eager Interested Factors affecting learning: None Physical limitations affecting learning: None Patient learns best by: Multiple Methods Method of instruction: Individual instruction Written instruction/Handouts Verbal instruction Instructions provided to: Patient via telephone. Written material provided prior to education appointment. Family support: High - Very involved in pt care PRE- AND POST-OPERATIVE TEACHING Pre-operative teaching and supplemental material provided and reviewed with patient: Your Surgical Guide Book Map Written pre-op and post-op instructions Antibacterial soap: given to patient prior to teaching appointment. Pre-operative instructions provided and reviewed with patient/family: No eating, drinking, or smoking after midnight prior to surgery unless otherwise directed No alcohol the day before surgery Medications as prescribed by anesthesia, internal medicine, surgeon, or CHURNER Stop NSAIDs, Aspirin (ASA), vitamins, herbal supplements, herbal teas, and diet pills 7-10 days prior to surgery OK to take tylenol prn pain unless otherwise directed by physician Call surgery coordinators if any other questions about surgery date or pre-op appointments Bowel prep instructions: NPO after midnight Day of surgery instructions provided and reviewed with patient/family: Arrival time (call surgical coordinators on the office day prior to surgery for verification) No jewelry, body piercing, makeup, contacts, lotions, nail st lucian on fingers, or anything in hair on arrival to surgery Wear low healed shoes and loose fitting clothing Leave all valuables at home or with a family member Directions to [facility] and [facility] Parking/parking validation on the day prior to surgery Admission/check in (Report to DESK J1-9 for surgery) Holding area Placement of IV Surgical positioning Family waiting area Surgical recovery room Post-operative instructions provided and reviewed with patient/family: SEE PATIENT INSTRUCTION SECTION FOR DETAILS. ACTIVITY - No heavy lifting (>5-10 lbs), no pushing/pulling, OK to climb stairs DRIVING - No driving for 3 weeks unless prior approval from MD, OK to ride in a car. DIET - Advance diet as tolerated and as ordered by MD, drink 8 glasses of water a day, eat a diet high in protein and fiber unless otherwise directed by MD. CATHETER - Will be inserted during surgery, you may go home with a catheter for 7-10 days and will have to come back to the office for a voiding trial, UTI symptoms reviewed and patient instructed to notify MD of any of these symptoms. INCISION CARE - Keep incision clean and dry, ellie to be removed 7-10 days after surgery, steristrips do not need to be removed by MD BATHING - OK to shower after surgery unless otherwise directed by MD, no tub baths. PAIN MEDICATION - IV pain medication after surgery, IV VOCATIONAL REHABILITATION TEACHER if ordered by MD, discharged home with a prescription for PO pain medication, pain management after surgery, side effects of pain medication (including constipation, dizziness, drowsiness, and medication interactions). VAGINAL CARE - Pelvic rest x6 weeks unless otherwise directed by MD. DVT PROPHYLAXIS - Early ambulation, SCDs, injectable anticoagulants (heparin, lovenox, etc) RESPIRATORY - Incentive spirometer, coughing/deep breathing exercises, ambulation. RETURN TO WORK - As directed by physician, please send any FMLA papers to physician's medical assistant secretary. SYMPTOMS TO NOTIFY MD - Fever, chills, nausea, vomiting, increased or severe pain, heavy vaginal bleeding, foul smelling vaginal drainage, pain or swelling in extremities. URGENT SYMPTOMS - Call 911 or go to ER if any shortness of breath, difficulty breathing, or chest pain. HOW TO CONTACT PHYSICIAN - Physician's office phone number given to patient, if after hours patient instructed to call wire photo operator news and ask for sanitation manager top spotter onc resident. VALENTÍN program offered to patient: No. Additional teaching as indicated by patient/family learning needs. PATIENT LEARNING EVALUATION & FOLLOW UP PLAN: Patient and/or family express understanding of upcoming surgery, pre-operative preparation, the operative process, and post-operative instructions. Follow up plan: Complete - No need for follow-up Patient has a post-op appointment scheduled: Yes Referral (recommentation): None Educator: Dayanna Jo LPN [facility] documented in this encounter [facility] 07-10-2024 Note HNO ID: [id number] Author: DANILO CHICAS RN Service: ? Author Type: Registered Nurse Type: Progress Notes Filed: 07/10/2024 13:37 Note Text: IRB#: [id number] Study name: Leveraging Methylated DNA Markers (MDMs) in the Detection of Endometrial Cancer, Ovarian Cancer, and Cervical Cancer: a Phase II Clinical Study (ECHO) PI: Dr. Siegel Visit: Screening/Enrollment Date: 07/10/2024 Spoke with patient (during patient visit) at the request of Dr. Reddy. A copy of the IRB approved Informed Consent was given to the patient; patient instructed to read and review the Informed Consent and call with any questions or concerns. Treatment plan, including all testing, potential risks/benefits, side effects and management, treatment alternatives, and follow-up initially presented. Roles of the clinical trial personnel to be involved and the financial responsibilities regarding procedures and medications were discussed. Informed the patient he/she is under no obligation to participate - study participation is completely voluntary. Initial questions were answered. Contact information for the Research/Deicer Element Winder Machine was given to the patient. The patient verbalized appropriate understanding of all the aforementioned information presented. Information was also discussed with regards to [i.e. testing, lab draw(s), tissue collection, potential risks/benefits, side effects, alternatives, clinical trial personnel involved, financial responsibilities regarding procedures] for the Optional Blood Sample Collection for Storage and Future Research at the end of the Main Consent Document. Patient informed that all Optional Consents are completely voluntary and Optional and she may participate in the Main Research Study if she declines participation in any or all of the Optional Research. After above discussion patient stated she wished to review the consent while in clinic today. Discussed study participation in cohort #2 with patient. Eligibility reviewed. After study discussion and having all questions asked and answered, patient signed consent to the ECHO study on this date. See consent note in Epic consent tab. No study procedures were initiated prior to patient signing consent. Time consent signed: 10:50 AM VS obtained Patient requesting that the tampon and blood collection are completed in pre-op on the day of surgery 07/21/2024. Medications and past medical history reviewed as in Epic. AE according to version 5 https://ctep.cancer.gov/protocolDe velopment/electronic_applications/ docs/CTCAE_v 5_Quick_Reference_8.5x11.pdf Toxicity Grade Start Date Stop Date Relationship to Tampon Dwell/ Blood Draw Relationship to Clinically-Indicated Procedures (endometrial biopsy, gynecologic surgery, etc.) Comments None Patient to contact research with any questions prior to sugery. Danilo Chicas RN [facility] 07-10-2024 History of Present illness Narrative IRB#: [id number] Study name: Leveraging Methylated DNA Markers (MDMs) in the Detection of Endometrial Cancer, Ovarian Cancer, and Cervical Cancer: a Phase II Clinical Study (ECHO) PI: Dr. Siegel Visit: Screening/Enrollment Date: 07/10/2024 Spoke with patient (during patient visit) at the request of Dr. Reddy. A copy of the IRB approved Informed Consent was given to the patient; patient instructed to read and review the Informed Consent and call with any questions or concerns. Treatment plan, including all testing, potential risks/benefits, side effects and management, treatment alternatives, and follow-up initially presented. Roles of the clinical trial personnel to be involved and the financial responsibilities regarding procedures and medications were discussed. Informed the patient he/she is under no obligation to participate - study participation is completely voluntary. Initial questions were answered. Contact information for the Research/Deicer Element Winder Machine was given to the patient. The patient verbalized appropriate understanding of all the aforementioned information presented. Information was also discussed with regards to [i.e. testing, lab draw(s), tissue collection, potential risks/benefits, side effects, alternatives, clinical trial personnel involved, financial responsibilities regarding procedures] for the Optional Blood Sample Collection for Storage and Future Research at the end of the Main Consent Document. Patient informed that all Optional Consents are completely voluntary and Optional and she may participate in the Main Research Study if she declines participation in any or all of the Optional Research. After above discussion patient stated she wished to review the consent while in clinic today. Discussed study participation in cohort #2 with patient. Eligibility reviewed. After study discussion and having all questions asked and answered, patient signed consent to the ECHO study on this date. See consent note in Epic consent tab. No study procedures were initiated prior to patient signing consent. Time consent signed: 10:50 AM VS obtained Patient requesting that the tampon and blood collection are completed in pre-op on the day of surgery 07/21/2024. Medications and past medical history reviewed as in Epic. AE according to version 5 https://ctep.cancer.gov/protocolDe velopment/electronic_applications/ docs/CTCAE_v5_Quick_Reference_8.5x 11.pdf Toxicity Grade Start Date Stop Date Relationship to Tampon Dwell/ Blood Draw Relationship to Clinically-Indicated Procedures (endometrial biopsy, gynecologic surgery, etc.) Comments None Patient to contact research with any questions prior to sugery. Danilo Chicas RN documented in this encounter [facility] 07-10-2024 Instructions Deja Nunez APRN.STORAGE MANAGER - 07/10/2024 1:21 PM EST Images from the original note were not included. Please visit the following website for the [facility] surgery guide. [email or web address] PATIENT SURGICAL CHECKLIST - NEXT STEPS Your surgeon's office will call you to arrange your surgery date and pre-admission testing appointments. You should receive a call within 2-5 business days from our scheduling team. (If you do not receive a call within 5 days - please call [phone]) Pre-admission testing appointments include: - Preop anesthesia clearance with [facility] (pre-anesthesia consultation clinic). There are options for in person appointments or virtual appointments based on the recommendations from your surgeon. - Preop exam which can be done at the time of an in person pre-anesthesia appointment or by your surgeon's team depending on the complexity of your medical history. This needs to be done within 30 days of surgery. - Virtual shared preop nurse teaching appointment. - Lab work - Any other testing that the provider orders for prior to surgery if needed You will receive a call from the marriage and family teacher the business day prior to your surgery as to when and where to arrive on the day of your scheduled surgery [facility] PH[facility] CONTACT INFORMATION Surgery Scheduling Office Surgeons: Dr. Mabel Siegel Dr. Alexandra Payne Dr. Lauri Rothman Dr. Neelima Jain Dr. Sera Reddy Dr. Iron Kunz Dr. Emanuel Rudolph Dr. Mert Serra Dr. Camilo Palencia Shuttle Threader Oncology Nurse Practitioners: Lorena Castañeda, PERINATAL SOCIAL WORKER.AC Calzada, PERINATAL SOCIAL WORKER.AC Elias, PERINATAL SOCIAL WORKER.AC Barclay, PERINATAL SOCIAL WORKER.AC Lee, PERINATAL SOCIAL WORKER.AC Arthur, PERINATAL SOCIAL WORKER.STORAGE MANAGER After 4:30 pm or on holidays or weekends, call: or . Ask the wire photo operator news to page the top spotter oncologist sanitation manager. [facility] PH[facility]ICIAN CONTACT INFORMATION [place] [phone] Surgeons: Dr. Mabel Rudolph Shuttle Threader Oncology advanced practice providers: Anna Waller, PERINATAL SOCIAL WORKER.LOREN Bear APRN.AC After 4:30 pm or on holidays or weekends, call: or . Ask the wire photo operator news to page the top spotter oncologist sanitation manager. PRE-OPERATIVE CHECKLIST: PATIENT INSTRUCTIONS PRIOR TO SURGERY Our guidelines have changed, so please read these instructions carefully. Your surgery may be cancelled if you do not follow these instructions. MY ARRIVAL TIME IS: I have been instructed not to have any solid food to eat after midnight prior to my surgery (this includes no gum, mints, smoking). I am allowed to drink small amounts (up to 12 oz) of clear liquids up until 2 hours prior to my arrival time. Clear liquids include water, fruit juices without pulp, carbonated beverages (i.e. antoni diya), electrolyte beverages (i.e. Gatorade), clear tea and black coffee, clear broth, popsicles and jello. (No milk). No alcohol the day before or day of surgery. I will bring this binder to all pre and post-operative appointments AND day of surgery. MEDICATION STOPPAGE: Unless my surgeon tells me differently, I will STOP THESE MEDICATIONS 7 DAYS PRIOR TO SURGERY: (Motrin/ibuprofen/Naproxen/Aleve/A dvil), Aspirin, vitamin E, herbal medications, diet pills, and jkmq-mfz-qkvqyea medications. Tylenol (acetaminophen) is okay. I will not wear jewelry, body piercing(s), makeup, nail st lucian, hairpins, or contacts on the day of surgery. I am to leave valuables and money at home or with family members. If I am prescribed inhalers for breathing, I will use them and bring them to the hospital. Medication(s) to be taken on the morning of surgery with a few sips of water: If I am taking any of the following blood thinning medications - Aspirin, clopidogrel (Plavix), ticagrelor (Brilinta), prasugrel (Efficient), ticlodipine (Ticlid), warfarin (Coumadin), dibigatran (Pradaxa) or rivaroxaban (Xarelto) - I will discuss whether or not I should stop them before surgery with my surgeon. Discuss medication changes with your parts interpreter or primary care physician as well. If I stopped taking my blood-thinning medication, I will ask the surgeon when to resume taking it. If I am an outpatient, a responsible person will drive me home and it was suggested that someone stay with me for 24 hours. I understand that a business consult or cabdriver is NOT a responsible caregiver. Patients with diabetes, I will not take my morning diabetes medication (pills) on the morning of surgery. If I am on insulin, someone has gone over those instructions with me for the morning of surgery. I understand if my surgery is delayed, I will notify the check in desk that I have diabetes. See the Diabetic Guidelines Before Surgery in the patient education section. If I have Obstructive Sleep Apnea and use a CPAP/BiPAP machine, I will bring my mask, tubing, and machine with me on the day of surgery. Pain management education material found in Your Surgical Guide was reviewed with me. To find out my arrival time for surgery, I must call my mail machine operator after 2pm the day before surgery. Pre-operative instructions given by: PREOP INSTRUCTIONS THE DAY OF SURGERY/CHECK IN Report to DESK J1-9 for surgery. A map is located in Your Surgical Guide Book. The online version of the surgical guide book can be found at: [email or web address] The address is [address] [place] [address] INFECTION PREVENTION Please notify your doctor if you have any signs of an infection (i.e. fever, severe cough, nasal congestion, pain with urination, abnormal vaginal discharge, diarrhea, etc). Your surgeon will let you know if a bowel prep is needed before your surgery. If so, please see the attached instructions. Shower the night before surgery AND the morning of surgery with Hibiclens (provided by your surgeon). If you are allergic to Hibiclens or unable to obtain the Hibiclens, please wash with antibacterial soap. Wash your body from the neck down, focusing on your abdomen, belly button and external genitalia. Do not forget to scrub any skin folds and creases. No lotions, oils, creams, or powders after your shower. Underarm deodorant is okay. No shaving (abdominal or pubic hair) or douching the day before surgery. You may be asked to apply an antiseptic solution called Chlorhexidine Gluconate (CHG) which will be provided to you on arrival to the preop area. Hand washing is extremely important in preventing infection (for both you as the patient and for the caregivers). HOSPITALIZATION Before you leave the hospital, you typically need to be able to eat/drink, urinate, and have your pain controlled with oral medication. Your surgeon or other members of your surgeon s team will discuss any other specific medical issues related to your discharge with you. Your surgeon may order intermittent compression sleeves. These are massaging leg pumps to help prevent blood clots after surgery. See Your Surgical Guide Book for more information. It is also very important that you walk as soon as possible and as frequently as possible after surgery. This will help decrease your risk of blood clots, exercise your lungs and speed up your recovery after surgery. If you are admitted to the hospital overnight, you will be given an incentive spirometer, which is a breathing machine that will help make sure that you are taking deep breaths and expanding your lungs while in the hospital. See Your Surgical Guide Book for more information. [facility] TEAM At the [facility], we have a multidisciplinary team of caregivers that includes fellows, residents, nurse practitioners, physician assistants, clinical nurse specialists, nurses, medical assistants, patient care nursing assistants, social workers, protective services case worker and many others. We all have different roles and responsibilities but we are all here to help. POSTOP: LAPAROSCOPIC SURGERY WHAT TO EXPECT AT HOME Recovery from surgery is generally 2-6 weeks, but sometimes longer for more strenuous activity. It is normal to be very tired during this time. It is normal to have some drainage or a small amount of vaginal bleeding after surgery which may last up to 6 weeks. You will most likely experience gas pain, abdominal swelling, or shoulder pain for 24-72 hours after surgery. This is from the carbon dioxide gas put into your abdomen to better visualize your organs. A warm shower, heating pad, and/or walking may help. You will have 1-5 small incisions on your abdomen. There will be dissolvable stitches under your skin that do not need to be removed. You will also have surgical glue or steri-strips (paper tape) on the incisions. These may be removed when they start to fall off on their own, or in 7-10 days. ACTIVITY No heavy lifting/pushing/pulling for 4-6 weeks. Do not lift anything more than 10-15 lbs (such as laundry, groceries, children, pets), vacuum, push heavy doors or grocery carts, etc. You may climb stairs as tolerated. Do not put anything in the vagina for 6 weeks after surgery unless otherwise instructed by your doctor (including tampons, douching, sexual intercourse, etc). No driving for about 2-3 weeks after surgery, while you are taking narcotic pain medication, or until you feel that you are ready. Avoid sitting or lying in bed for more than 2 hours at a time while you are awake to reduce your risk of blood clots. Return to work when directed by your surgeon. Please contact your surgeon s office if any FMLA or other paperwork is needed. WOUND CARE You will have 1-5 small incisions on your abdomen. If you have a dressing (big, white, square band-aid), please remove it 24 hour after your surgery. You may have surgical glue or steri-strips on the incisions and these may be removed once they start to fall off. Shower daily after surgery. Wash your incision with antibacterial soap (such as Dial). Pat your incision dry with a clean towel. No tub baths until wound is completely healed. Wash your hands frequently, especially before touching your incision, changing any dressings, after using the restroom, and before eating. PAIN MANAGEMENT You will be given prescriptions for a variety of pain medications (opioid and non-opioid) before you leave the hospital. Surgery will cause pain and everyone has a different pain tolerance. It is safer to find the right combination and amount of medicine to manage your pain. We recommend that you take the non-opioid medication (acetaminophen and ibuprofen) on a regular schedule after surgery. You can take these medications on an alternating schedule so that you are taking one or the other every 3-4 hours. The maximum total daily dose of acetaminophen is 4,000mg and the maximum total daily dose of ibuprofen is 2,400mg. Take the opioid prescription ONLY when your pain is severe and never take more pills or more frequent doses than prescribed. Opioids (narcotics) can cause serious side effects. The risks increase the longer they are used. Taking opioids may cause: constipation, drowsiness, itching, nausea/vomiting. More serious side effects of opioids may include: addiction or dependence, life threatening overdose, or dizziness leading to falls/injury. Keep your pain medication locked in a safe place. Never share your pain medication with others. If you have any remaining opioid pills after you recover from surgery, please bring them to a medication disposal station (located in many of the [facility] pharmacies). Do not flush them down the toilet. Constipation is a common problem after surgery. You should take a stool softener (i.e. colace) twice a day, especially if you are taking opioids. If a stool softener alone is not helping to manage your constipation, you can also take Miralax and/or milk of magnesia as needed. WHEN TO CALL THE DOCTOR Call your doctor if you have any of the following symptoms: Fever (>100.4 F or 38.0 C) or chills. Incision problems such as redness, warmth, swelling, or foul smelling drainage. Severe nausea or persistent vomiting. Bright red vaginal bleeding (soaking >1 pad/hour) or foul smelling vaginal drainage. Severe pain not relieved with pain medication. Pain and swelling in your legs, especially if it is only on one side and not the other. Pain with urination, cloudy urine, or foul smelling urine. Or if you have any other problems or questions. CALL 911 or go to the ED if you have any shortness of breath, difficulty breathing, or chest pain. OUTPATIENT SURGERY POST-OP INSTRUCTIONS POST-OP INSTRUCTIONS You must have a responsible adult drive you home and stay with you for the first [address] a [address] or drink any alcohol for 24 hours after surgery. You may have mild nausea, a sore throat or raspy voice for a few days. Do not put anything in the vagina for 4 weeks after surgery unless otherwise advised by your doctor. It is normal to have some drainage or a small amount of vaginal bleeding after surgery which may last for several weeks following your surgery. WHEN TO CALL YOUR DOCTOR: Fever (>100.4 F or 38.0 C) or chills. Incision problems such as redness, warmth, swelling, or foul smelling drainage. Severe nausea or persistent vomiting. Bright red vaginal bleeding (soaking >1 pad/hour) or foul smelling vaginal drainage. Severe pain not relieved with pain medication. Pain and swelling in your legs, especially if it is only on one side and not the other. Pain with urination, cloudy urine, or foul smelling urine. Or if you have any other problems or questions. CALL 911 or go to the ED if you have any shortness of breath, difficulty breathing, or chest pain. documented in this encounter [facility] 07-03-2024 Note HNO ID: [id number] Author: SERA REDDY MD Service: ? Author Type: Physician Type: Progress Notes Filed: 07/10/2024 11:12 Note Text: DATE OF SERVICE: 07/10/2024 PROBLEM: Santa Rahman is a consult from Dr. Lau for evaluation of endometrial cancer. HPI: Ms. Rahman is a 68 year old female who has a past medical history of Abnormal ultrasound of endometrium (05/16/2024), Essential hypertension, Obesity, PMB (postmenopausal bleeding) (05/16/2024), Primary generalized (osteo)arthritis, Sleep apnea, and Thickened endometrium (05/16/2024). Patient reports started having postmenopausal bleeding intermittently since August 2023. Reports light spotting for a few days. Santa presented to [facility] with complaints of PMB. Thickened endometrium noted on US. 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 Patient presents to [facility] for further evaluation. Patient reports that currently still having some spotting, though very light. IMAGIN05/15/24 US: Impression The uterus is anteverted and measures 119 mm x 88 mm x 132 mm. The endometrium is heterogenous, thickened with irregular cystic areas nd measures 13 mm. 1. Right lateral anterior wall subserous fibroid measures 69 mm x 91 mm x 68 mm. 2. Left lateral posterior wall subserous fibroid measures 53 mm x 59 mm x 50 mm. the right ovary is not visualized. The left ovary is not visualized. There is no free fluid visualized. 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 HISTORIES: PAST GYNECOLOGIC HISTORY: OB History T0 L3 (all vaginal) SAB0 IAB0 Ectopic0 Multiple0 Live Births0 LMP: No LMP recorded. Patient is postmenopausal. Hormonal contraceptives: Yes, in 20s How lon years. HRT use: No. History of abnormal pap: No. Last pap: 06/19/24 negative Last HPV: 06/19/24 negative PAST SURGICAL HISTORY Procedure Laterality Date HYSTEROSCOPY, DIAGNOSTIC (SEPARATE hysteroscopy dANDc PAST MEDICAL HISTORY Diagnosis Date Abnormal ultrasound of endometrium 05/16/2024 Essential hypertension Obesity PMB (postmenopausal bleeding) 05/16/2024 Primary generalized (osteo)arthritis Sleep apnea Thickened endometrium 05/16/2024 FAMILY HISTORY Problem Relation Age of Onset Heart Attack Mother Macular Degen Mother Cataract Mother Uterine Fibroids Mother Arthritis Mother Obesity Mother Arthritis Father Hearing Loss Father Inherited Eye Disease Father Hypertension Father other (atrial fib) Sister Uterine Fibroids Sister Heart Attack Brother other (atrial fib) Brother Obesity Paternal Grandmother Family history of breast, ovarian, uterine or colon cancer: No Family history of VTE: No SOCIAL HISTORY Social History Tobacco Use Smoking status: Never Smokeless tobacco: Never Vaping Use Vaping status: Never Used Substance Use Topics Alcohol use: Not Currently Drug use: Never Occupation: retired, RN Marital Status: , Andrew HEALTH MAINTENANCE: Last mammogram: 04/2024 Last colonoscopy: due for one this year ADVANCED CARE PLANNING: Does the patient have an advanced directive: Yes REVIEW OF SYSTEMS: GENERAL: No recent weight loss, fever, chills, malaise or fatigue. HEENT: No changes in hearing or vision, frequent or severe headaches, nose bleeds or other nasal problems. NECK: No lumps, goiter, pain, significant neck swelling, or difficulty swallowing. RESPIRATORY: No shortness of breath, cough, wheezing, recent pneumonia (within last 6 weeks) or recent URI (within 2 weeks). Dyspnea on exertion CARDIOVASCULAR: No angina with activity or at rest, lower extremity edema, or palpitations. No recent NE (within 6 months), cardiac stent, cardiac surgery, gangrene, or PVD. No history of hypertension. BREAST: No breast lumps, skin changes, nipple discharge, or adenopathy. GI: No abdominal pain, nausea, vomiting, diarrhea, or constipation, +bloating, diarrhea (improved with medication cholestipal). No prior history of esophageal varicies or ascites. Patient denies drinking >2 alcoholic beverages a day. [facility]: + spotting.No vulvar bumps, lesions, pruritis, or pain. : No dysuria, gross hematuria, urinary frequency, urinary urgency. +stress incontinence No history of renal failure, dialysis, or recent UTI (<6 weeks). MUSCULOSKELETAL: No muscle weakness. + joint pain SKIN: No skin lesions, rashes, or itching. PSYCH: No sleep disturbances, depression, bipolar disorder, drug dependency/history of drug dependency, or recent psychosocial stressors. HEMATOLOGY/LYMPHOLOGY: No prolonged bleeding, bruising easily, swollen nodes, or anemia. No prior history of a blood clot or clotting disorder. No prior history of a bleedi (more content not included)... [facility] 07-03-2024 History of Present illness Narrative Images from the original note were not included. DATE OF SERVICE: 07/10/2024 PROBLEM: Santa Rahman is a consult from Dr. Lau for evaluation of endometrial cancer. HPI: Ms. Rahman is a 68 year old female who has a past medical history of Abnormal ultrasound of endometrium (05/16/2024), Essential hypertension, Obesity, PMB (postmenopausal bleeding) (05/16/2024), Primary generalized (osteo)arthritis, Sleep apnea, and Thickened endometrium (05/16/2024). Patient reports started having postmenopausal bleeding intermittently since August 2023. Reports light spotting for a few days. Santa presented to [facility] with complaints of PMB. Thickened endometrium noted on US. 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 Patient presents [facility] evaluation. Patient reports that currently still having some spotting, though very light. IMAGIN05/15/24 US: Impression The uterus is anteverted and measures 119 mm x 88 mm x 132 mm. The endometrium is heterogenous, thickened with irregular cystic areas nd measures 13 mm. 1. Right lateral anterior wall subserous fibroid measures 69 mm x 91 mm x 68 mm. 2. Left lateral posterior wall subserous fibroid measures 53 mm x 59 mm x 50 mm. the right ovary is not visualized. The left ovary is not visualized. There is no free fluid visualized. 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 HISTORIES: PAST GYNECOLOGIC HISTORY: OB History T0 L3 (all vaginal) SAB0 IAB0 Ectopic0 Multiple0 Live Births0 LMP: No LMP recorded. Patient is postmenopausal. Hormonal contraceptives: Yes, in 20s How lon years. HRT use: No. History of abnormal pap: No. Last pap: 06/19/24 negative Last HPV: 06/19/24 negative PAST SURGICAL HISTORY Procedure Laterality Date HYSTEROSCOPY, DIAGNOSTIC (SEPARATE hysteroscopy d&c PAST MEDICAL HISTORY Diagnosis Date Abnormal ultrasound of endometrium 05/16/2024 Essential hypertension Obesity PMB (postmenopausal bleeding) 05/16/2024 Primary generalized (osteo)arthritis Sleep apnea Thickened endometrium 05/16/2024 FAMILY HISTORY Problem Relation Age of Onset Heart Attack Mother Macular Degen Mother Cataract Mother Uterine Fibroids Mother Arthritis Mother Obesity Mother Arthritis Father Hearing Loss Father Inherited Eye Disease Father Hypertension Father other (atrial fib) Sister Uterine Fibroids Sister Heart Attack Brother other (atrial fib) Brother Obesity Paternal Grandmother Family history of breast, ovarian, uterine or colon cancer: No Family history of VTE: No SOCIAL HISTORY Social History Tobacco Use Smoking status: Never Smokeless tobacco: Never Vaping Use Vaping status: Never Used Substance Use Topics Alcohol use: Not Currently Drug use: Never Occupation: retired, RN Marital Status: , [place] HEALTH MAINTENANCE: Last mammogram: 04/2024 Last colonoscopy: due for one this year ADVANCED CARE PLANNING: Does the patient have an advanced directive: Yes REVIEW OF SYSTEMS: GENERAL: No recent weight loss, fever, chills, malaise or fatigue. HEENT: No changes in hearing or vision, frequent or severe headaches, nose bleeds or other nasal problems. NECK: No lumps, goiter, pain, significant neck swelling, or difficulty swallowing. RESPIRATORY: No shortness of breath, cough, wheezing, recent pneumonia (within last 6 weeks) or recent URI (within 2 weeks). Dyspnea on exertion CARDIOVASCULAR: No angina with activity or at rest, lower extremity edema, or palpitations. No recent NE (within 6 months), cardiac stent, cardiac surgery, gangrene, or PVD. No history of hypertension. BREAST: No breast lumps, skin changes, nipple discharge, or adenopathy. GI: No abdominal pain, nausea, vomiting, diarrhea, or constipation, +bloating, diarrhea (improved with medication cholestipal). No prior history of esophageal varicies or ascites. Patient denies drinking >2 alcoholic beverages a day. [facility]: + spotting.No vulvar bumps, lesions, pruritis, or pain. : No dysuria, gross hematuria, urinary frequency, urinary urgency. +stress incontinence No history of renal failure, dialysis, or recent UTI (<6 weeks). MUSCULOSKELETAL: No muscle weakness. + joint pain SKIN: No skin lesions, rashes, or itching. PSYCH: No sleep disturbances, depression, bipolar disorder, drug dependency/history of drug dependency, or recent psychosocial stressors. HEMATOLOGY/LYMPHOLOGY: No prolonged bleeding, bruising easily, swollen nodes, or anemia. No prior history of a blood clot or clotting disorder. No prior history of a bleeding disorder. Not on chronic anticoagulant/platelet medications. ENDOCRINE: No cold or heat intolerance, polyuria, polydipsia, polyphagia, goiter, hot flashes or night sweats. No prior diagnosis of diabetes or thyroid disorder. No chronic steroid use. NEURO: No history of paralysis, stroke/TIA, seizures, tremors, syncope, or paresthesias. Willing to receive blood products: Yes FRAILTY SCORE: Change in everyday activity (dependent functional status) prior to surgery: No History of diabetes: No History of respiratory problems: No History of CHF: No Hypertension requiring medications: Yes Age >75: No Total score: 0 For patients with a score >/= 3 who will be having surgery with a planned inpatient admission, please place CONSULT TO [facility] [employer] order. OBJECTIVE: VITALS: BP 198/81 Pulse 70 Resp 18 Wt (!) 167.3 kg (368 lb 13.3 oz) SpO2 93% BMI 62.33 kg/m GENERAL: Patient is a well developed, well nourished female. She is alert, oriented, pleasant, and cooperative. SKIN: Color, texture, turgor normal. No rashes or lesions. HEENT: Normocephalic, atraumatic, mucus membranes moist, and no lesions NECK: no adenopathy LUNGS: Clear to auscultation bilaterally. HEART: Regular rate and rhythm, no murmurs. BACK: deferred BREAST: deferred exam ABDOMEN: Abdomen soft, non-tender, no palpable masses PELVIC: External genitalia, anus and urethral meatus are normal in appearance and without lesions. Vagina and cervix are normal in appearance on speculum examination. Cervix slightly flush, Bimanual pelvic and rectovaginal examination were negative for urethral, bladder or pelvic masses, parametrial thickening or cul-de-sac nodularity. Uterus normal size and non-tender. There were no rectal masses. LOWER EXTREMITIES: No pitting edema, no palpable cords, and no skin changes. Launch Leader for exam: Mahsa Seals MD The sensitive examination was discussed with the Patient or Patient's Authorized Utilization Review Coordinator. As applicable, any other physician, advance practice provider, medical student, or other health professional student that will be observing or involved in the sensitive examination for educational or training purposes was discussed with the Patient or Authorized Utilization Review Coordinator. The Patient or Authorized Utilization Review Coordinator has agreed to proceed with the sensitive examination. PROCEDURES: N/A ASSESSMENT: 68yo with HTN and new diagnosis of FIGO gr 2 endometrial cancer. Grade 2 endometrial cancer, MMRp, POLE negative Office notes, Ultrasound images, pathology report from biopsy and pap were reviewed today. After review of patients medical and surgical history I recommend surgical staging with TLH,BSO,SLN. We discussed r/b/a of surgery in detail and informed consent was obtained. Patient interested in ECHO study participation HTN Currently on 4 anti-hypertensives Will need PAT prior to surgery PLAN: -Preoperative labs including CA 125 -Plan for surgery at [facility] on 07/21 Sera Reddy MD Medical Decision Making: Problems: High: Illness/injury w/ threat to life/body function Data: Unique source(s) for external note(s) reviewed: 1 Unique test result(s) reviewed: 3+ Independent interpretation of test from other physician/QHCP Risk: High: Decision on elective major surgery w/ risk factors Medical Decision Making Level: 5 - High PCP: - Arleth Lau [address] [facility] [address] - No primary care provider on file. (PCP) documented in this encounter [facility] 06-19-2024 Instructions Arleth Lau APRN.CNP - 06/19/2024 10:05 AM EDT Please make a virtual follow up appointment with me to review pathology and plan. documented in this encounter [facility] 06-19-2024 Note Arleth Lau APRN.CNP 06/19/2024 10:05 AM ENDOMETRIAL BIOPSY PROCEDURE Date/Time: 06/19/2024 9:58 AM Performed by: Arleth Lau APRN.CNP Authorized by: Arleth Lau APRN.CNP Diagnosis: (R93.89) Thickened endometrium (primary encounter diagnosis) (Z12.4) Screening for malignant neoplasm of cervix No LMP recorded. Patient is postmenopausal. Informed Consent Consent Obtained: Written Hilliards Protocol A moment to CARE was completed. SIGN IN Personnel directly involved with the procedure wore the appropriate PPE. Patient/Surrogate Stated/Verified: Patient name, Date of , Relevant allergies and Intended procedure TIME OUT Intended patient and procedure match the source document(s). Consent documented and matches the intended procedure. Relevant labs, photos, and/or imaging studies have been reviewed. Pre-Procedure Details: Site Prep: Povidone Iodine (Betadine) Analgesia (see MAR): Medications: None Procedure Details: External Genitalia: Normal in appearance without lesions Vagina: Normal in appearance without lesions A bivalve speculum was placed in the vagina. Cervix cleaned and prepped A paracervical block was not performed. noAn intracervical block was not performed. The cervix was dilated. Uterus sounded. Uterus sound depth (cm): 12 Findings: Pelvic exam performed. Cervix: normal Patient Education: side effects discussed with patient Follow-up includes calling patient with results, follow-up appointment. Indication: Post menopausal bleeding and thickening of endometrial lining Post-Procedure Details: Patient tolerated the procedure well with no immediate complications Estimated Blood Loss: None Specimens Sent: EMB (co-testing collected) SIGN OUT All instruments, equipment, possible retained foreign bodies accounted for. Post-procedure follow-up management communicated and Plan of Care Visit completed when applicable [facility] 06-19-2024 Note HNO ID: [id number] Author: ARLETH LAU APRN.AC Service: ? Author Type: Nurse Practitioner Type: Progress Notes Filed: 06/19/2024 10:05 Note Text: Santa Rahman is scheduled for an endometrial biopsy at the request of Dr. Her. Unable to compete biopsy in office. Her hx is complicated by BMI 61.18, history of complex endometrial hyperplasia, and thickened endometrial stripe on US at 13mm. ENDOMETRIAL BIOPSY PROCEDURE Date/Time: 06/19/2024 9:58 AM Performed by: Arleth Lau APRN.STORAGE MANAGER Authorized by: Arleth Lau APRN.CNP Diagnosis: (R93.89) Thickened endometrium (primary encounter diagnosis) (Z12.4) Screening for malignant neoplasm of cervix No LMP recorded. Patient is postmenopausal. Informed Consent Consent Obtained: Written Hilliards Protocol A moment to CARE was completed. SIGN IN Personnel directly involved with the procedure wore the appropriate PPE. Patient/Surrogate Stated/Verified: Patient name, Date of , Relevant allergies and Intended procedure TIME OUT Intended patient and procedure match the source document(s). Consent documented and matches the intended procedure. Relevant labs, photos, and/or imaging studies have been reviewed. Pre-Procedure Details: Site Prep: Povidone Iodine (Betadine) Analgesia (see MAR): Medications: None Procedure Details: External Genitalia: Normal in appearance without lesions Vagina: Normal in appearance without lesions A bivalve speculum was placed in the vagina. Cervix cleaned and prepped A paracervical block was not performed. noAn intracervical block was not performed. The cervix was dilated. Uterus sounded. Uterus sound depth (cm): 12 Findings: Pelvic exam performed. Cervix: normal Patient Education: side effects discussed with patient Follow-up includes calling patient with results, follow-up appointment. Indication: Post menopausal bleeding and thickening of endometrial lining Post-Procedure Details: Patient tolerated the procedure well with no immediate complications Estimated Blood Loss: None Specimens Sent: EMB (co-testing collected) SIGN OUT All instruments, equipment, possible retained foreign bodies accounted for. Post-procedure follow-up management communicated and Plan of Care Visit completed when applicable Encounter Diagnosis ICD-10-CM 1. Thickened endometrium R93.89 SURGICAL PATHOLOGY ENDO BIOPSY 2. Screening for malignant neoplasm of cervix Z12.4 PAP TEST Long graves speculum used to visualize cervix. Unclear if fundus was reached with Pipelle, but adequate sample collected. Pap and HPV testing also collected and sent. Arleth Lau APRN.AC June 19, 2024 10:01 AM [facility] 06-19-2024 History of Present illness Narrative Associated Order(s): ENDO BIOPSY Santa Rahman is scheduled for an endometrial biopsy at the request of Dr. Her. Unable to compete biopsy in office. Her hx is complicated by BMI 61.18, history of complex endometrial hyperplasia, and thickened endometrial stripe on US at 13mm. ENDOMETRIAL BIOPSY PROCEDURE Date/Time: 06/19/2024 9:58 AM Performed by: Arleth Lau APRN.STORAGE MANAGER Authorized by: Alreth Lau APRN.AC Diagnosis: (R93.89) Thickened endometrium (primary encounter diagnosis) (Z12.4) Screening for malignant neoplasm of cervix No LMP recorded. Patient is postmenopausal. Informed Consent Consent Obtained: Written Hilliards Protocol A moment to CARE was completed. SIGN IN Personnel directly involved with the procedure wore the appropriate PPE. Patient/Surrogate Stated/Verified: Patient name, Date of , Relevant allergies and Intended procedure TIME OUT Intended patient and procedure match the source document(s). Consent documented and matches the intended procedure. Relevant labs, photos, and/or imaging studies have been reviewed. Pre-Procedure Details: Site Prep: Povidone Iodine (Betadine) Analgesia (see MAR): Medications: None Procedure Details: External Genitalia: Normal in appearance without lesions Vagina: Normal in appearance without lesions A bivalve speculum was placed in the vagina. Cervix cleaned and prepped A paracervical block was not performed. noAn intracervical block was not performed. The cervix was dilated. Uterus sounded. Uterus sound depth (cm): 12 Findings: Pelvic exam performed. Cervix: normal Patient Education: side effects discussed with patient Follow-up includes calling patient with results, follow-up appointment. Indication: Post menopausal bleeding and thickening of endometrial lining Post-Procedure Details: Patient tolerated the procedure well with no immediate complications Estimated Blood Loss: None Specimens Sent: EMB (co-testing collected) SIGN OUT All instruments, equipment, possible retained foreign bodies accounted for. Post-procedure follow-up management communicated and Plan of Care Visit completed when applicable Encounter Diagnosis ICD-10-CM 1. Thickened endometrium R93.89 SURGICAL PATHOLOGY ENDO BIOPSY 2. Screening for malignant neoplasm of cervix Z12.4 PAP TEST Long graves speculum used to visualize cervix. Unclear if fundus was reached with Pipelle, but adequate sample collected. Pap and HPV testing also collected and sent. Arleth Lau APRN.CNP June 19, 2024 10:01 AM documented in this encounter [facility] 05-21-2024 Telephone encounter Note Attempted to contact patient. No answer and unable to leave a voicemail. Mailbox is full. Shobha Tompkins RN [facility] 05-21-2024 Miscellaneous Notes Attempted to contact patient. No answer and unable to leave a voicemail. Mailbox is full. Shobha Tompkins, RONAK Please contact patient and relay referral to [facility] for evaluation of thickened endometrium. We are not able to accomplish this in our office as we were unable to visualize the cervix. Hunter Her MD documented in this encounter [facility] 05-21-2024 Telephone encounter Note Please contact patient and relay referral to [facility] for evaluation of thickened endometrium. We are not able to accomplish this in our office as we were unable to visualize the cervix. Hunter Her MD [facility] 05-16-2024 Note Indication Evaluation of abnormal uterine bleeding: postmenopausal bleeding Impression The uterus is anteverted and measures 119 mm x 88 mm x 132 mm. The endometrium is heterogenous, thickened with irregular cystic areas nd measures 13 mm. 1. Right lateral anterior wall subserous fibroid measures 69 mm x 91 mm x 68 mm. 2. Left lateral posterior wall subserous fibroid measures 53 mm x 59 mm x 50 mm. the right ovary is not visualized. The left ovary is not visualized. There is no free fluid visualized. Recommendations Recommend endometrial sampling. Consider SIS for further evaluation of endometrial cavity if clinically indicated. Fibroid uterus. Clinical correlation is recommended. Menstrual History Contraception: menopausal Method Transabdominal, transvaginal, 3D ultrasound examination, Color Doppler examination. View: Suboptimal view: fibroids prevented a clear view of the adnexa Uterus Uterus: Visualized Uterus position: anteverted Description of uterine malformations: none Myometrium: heterogeneous Endometrium: thickened, non-uniform echogenicity: homogeneous background with irregular cystic areas Cervix details: normal Uterus length 119 mm Uterus width 132 mm Uterus height 88 mm Uterus Vol 722.6 cm Endometrial thickness, total 13.0 mm Fibroids: Fibroids identified Uterine fibroid D1 69 mm Uterine fibroid D2 91 mm Uterine fibroid D3 68 mm Uterine fibroid mean 76.0 mm Uterine fibroid vol 223.562 cm Uterine fibroids findings: Right lateral anterior wall. Subserous Uterine fibroid D1 53 mm Uterine fibroid D2 59 mm Uterine fibroid D3 50 mm Uterine fibroid mean 54.0 mm Uterine fibroid vol 81.865 cm Uterine fibroids findings: Left lateral posterior wall. Subserous Right Ovary Rt ovary: Not visualized Left Ovary Lt ovary: Not visualized Cul de Sac Visualized. no free fluid visualized Performed By: Swathi Barrios RDMS Read By: Nickie Don M.D. [facility] 05-16-2024 Note HNO ID: [id number] Author: NIKCIE DON MD Service: ? Author Type: Physician Type: Progress Notes Filed: 05/16/2024 16:19 Note Text: The patient presents for requested ultrasound. Full report available in the Imaging tab in [employer]. Nickie Don MD [facility] 05-16-2024 History of Present illness Narrative The patient presents for requested ultrasound. Full report available in the Imaging tab in [employer]. Nickie Don MD documented in this encounter [facility] 05-13-2024 Telephone encounter Note Received records from [facility]. Placed in AT's mailbox to review when he returns tomorrow to office. Marianela Diaz RN [facility] 05-13-2024 Miscellaneous Notes Received records from [facility]. Placed in AT's mailbox to review when he returns tomorrow to office. Marianela Diaz RN documented in this encounter [facility] 05-08-2024 Note HNO ID: [id number] Author: BLANCHE SHARPE LPN Service: ? Author Type: LICENSED NURSE Type: Progress Notes Filed: 05/08/2024 11:55 Note Text: Launch Leader offered: Patient accepts, visit chaperoned by Maria Guadalupe Sharpe. The sensitive examination was discussed with the Patient or Patient's Authorized Utilization Review Coordinator. As applicable, any other physician, advance practice provider, medical student, or other health professional student that will be observing or involved in the sensitive examination for educational or training purposes was discussed with the Patient or Authorized Utilization Review Coordinator. The Patient or Authorized Utilization Review Coordinator has agreed to proceed with the sensitive examination. (Sensitive examination includes inspection and/or palpation of the breasts, pelvis, prostate and anorectal regions) Santa is a 68 year old who presents today for an endometrial biopsy for postmenopausal bleeding with a hx of complex endometrial hyperplasia identified on DANMO on 03/25/12 test: n/a UNIVERSAL PROTOCOL / SAFETY CHECKLIST Procedure to be Performed: endometrial bx Sign In: A Moment of CARE was completed. Personnel directly involved with the procedure wore the appropriate PPE (Personal Protective Equipment). Patient/Surrogate Stated/Verified: PATIENT VERIFIED(optional for EMERGENT procedures): Patient name, Date of , Relevant allergies, and The intended procedure Time Out Communication: Intended patient and procedure match the source documents. Consent documented and matches the intended procedure. Sign Out: SIGN OUT (optional for EMERGENT procedures): unable to visualize cervix and could not perfor procedure PROCEDURE: EXTERNAL GENITALIA: Normal in appearance without lesions VAGINA: very deep BIOPSY: Speculum placed into the vagina and unable to visualize cervix Procedure Summary: Patient tolerated procedure well. ASSESSMENT: post menopausal bleeding x 6mo w hx of complex endometrial hyperplasia w/o atypia untreated PLAN: Pelvic ultrasound and sampling in OR FTFT over multiple attempts at accessing the cervix > 60 min. Hunter Her MD [facility] 05-08-2024 History of Present illness Narrative Launch Leader offered: Patient accepts, visit chaperoned by Maria Guadalupe Sharpe. The sensitive examination was discussed with the Patient or Patient's Authorized Utilization Review Coordinator. As applicable, any other physician, advance practice provider, medical student, or other health professional student that will be observing or involved in the sensitive examination for educational or training purposes was discussed with the Patient or Authorized Utilization Review Coordinator. The Patient or Authorized Utilization Review Coordinator has agreed to proceed with the sensitive examination. (Sensitive examination includes inspection and/or palpation of the breasts, pelvis, prostate and anorectal regions) Santa is a 68 year old who presents today for an endometrial biopsy for postmenopausal bleeding with a hx of complex endometrial hyperplasia identified on D&C on 03/25/12 test: n/a UNIVERSAL PROTOCOL / SAFETY CHECKLIST Procedure to be Performed: endometrial bx Sign In: A Moment of CARE was completed. Personnel directly involved with the procedure wore the appropriate PPE (Personal Protective Equipment). Patient/Surrogate Stated/Verified: PATIENT VERIFIED(optional for EMERGENT procedures): Patient name, Date of , Relevant allergies, and The intended procedure Time Out Communication: Intended patient and procedure match the source documents. Consent documented and matches the intended procedure. Sign Out: SIGN OUT (optional for EMERGENT procedures): unable to visualize cervix and could not perfor procedure PROCEDURE: EXTERNAL GENITALIA: Normal in appearance without lesions VAGINA: very deep BIOPSY: Speculum placed into the vagina and unable to visualize cervix Procedure Summary: Patient tolerated procedure well. ASSESSMENT: post menopausal bleeding x 6mo w hx of complex endometrial hyperplasia w/o atypia untreated PLAN: Pelvic ultrasound and sampling in OR FTFT over multiple attempts at accessing the cervix > 60 min. Hunter eHr MD documented in this encounter [facility] 05-08-2024 Instructions Blanche Sharpe LPN - 05/08/2024 11:08 AM EDT YOUR RECOVERY After your biopsy you may have: Vaginal bleeding (less than a normal menstrual period) Mild cramping Do NOT put anything in the vagina for 1 week after your endometrial biopsy. This includes: tampons douches and refraining from having sexual intercourse If you have any discomfort, you may take an over the counter pain medication (motrin, advil, ibuprofen, tylenol, etc). If this does not relieve your discomfort, contact the office. It is okay to wear a sanitary pad until the discharge and spotting stops. RISKS Although problems seldom occur with endometrial biopsies, there can be some complications. You may feel faint during and shortly after the procedure as well as have some bleeding after the procedure. There is also a risk of infection after the procedure. These complications are rare and can be easily treated. You should contact you doctor is you have any of the following: Heavy bleeding (more than your normal period) Bleeding with clots Severe abdominal pain Fever (more than 100.4F) Foul smelling vaginal discharge RESULTS We will have the results of your biopsy in 1-2 weeks. If you do not hear the results of your biopsy after 2 weeks, please contact the office for the results. If you have any additional questions or concerns please do not hesitate to contact the office. documented in this encounter [facility] Evaluation note Diagnosis Encounter for screening for malignant neoplasm of cervix- Primary Screening for malignant neoplasm of the cervix Postmenopausal bleeding [facility] Diagnosis Postmenopausal bleeding- Primary Fibroids, subserous Subserous leiomyoma of uterus Abnormal ultrasound of endometrium Nonspecific (abnormal) findings on radiological and other examination of genitourinary organs Thickened endometrium Nonspecific (abnormal) findings on radiological and other examination of genitourinary organs [facility] Diagnosis Thickened endometrium- Primary Nonspecific (abnormal) findings on radiological and other examination of genitourinary organs [facility] Diagnosis Thickened endometrium- Primary Nonspecific (abnormal) findings on radiological and other examination of genitourinary organs Screening for malignant neoplasm of cervix Screening for malignant neoplasm of the cervix [facility] Diagnosis Endometrial cancer (HCC)- Primary Malignant neoplasm of corpus uteri, except isthmus Endometrial adenocarcinoma (HCC) Malignant neoplasm of corpus uteri, except isthmus Endometrial cancer (HCC) Malignant neoplasm of corpus uteri, except isthmus [facility]* Diagnosis Pre-op testing- Primary Preoperative examination, unspecified Endometrial cancer (HCC) Malignant neoplasm of corpus uteri, except isthmus Preop examination Preoperative examination, unspecified Endometrial cancer (HCC) Malignant neoplasm of corpus uteri, except isthmus [facility] Diagnosis Educational circumstances- Primary Educational circumstance Endometrial cancer (HCC) Malignant neoplasm of corpus uteri, except isthmus documented in this encounter [facility] note* Diagnosis Pre-operative examination- Primary Preoperative examination, unspecified Incomplete left bundle branch block (LBBB) Essential hypertension, benign Bilateral leg edema Edema MORGAN (obstructive sleep apnea) Obstructive sleep apnea (adult) (pediatric) Morbid obesity (HCC) Morbid obesity Endometrial cancer (HCC) Malignant neoplasm of corpus uteri, except isthmus * Assessment & Plan Note - Andrade Cole APRN.CNP - 07/17/2024 1:48 PM EST Associated Problem(s): Morbid obesity (HCC) Assessment: Body mass index is 61.08 kg/m . * Assessment & Plan Note - Andrade Cole APRN.CNP - 07/17/2024 1:45 PM EST Associated Problem(s): MORGAN (obstructive sleep apnea) Assessment: c/w CPAP * Assessment & Plan Note - Andrade Cole APRN.CNP - 07/17/2024 1:45 PM EST Associated Problem(s): Bilateral leg edema Assessment: on rx, chronic, pt states was told it was not lymphedema by PCP * Assessment & Plan Note - Andrade Cole APRN.CNP - 07/17/2024 1:44 PM EST Associated Problem(s): Essential hypertension, benign Assessment: controlled on rx * Assessment & Plan Note - Andrade Cole APRN.CNP - 07/17/2024 1:44 PM EST Associated Problem(s): Incomplete left bundle branch block (LBBB) Assessment: per today's EKG, no EKG's in epic to compare, pt states she believes this has been chronic on her EKG and had a work up completed by her PCP, records requested [facility] Diagnosis Pre-operative examination- Primary Preoperative examination, unspecified Incomplete left bundle branch block (LBBB) Essential hypertension, benign Bilateral leg edema Edema MORGAN (obstructive sleep apnea) Obstructive sleep apnea (adult) (pediatric) Morbid obesity (HCC) Morbid obesity Pre-op testing Preoperative examination, unspecified Endometrial cancer (HCC) Malignant neoplasm of corpus uteri, except isthmus [facility] Diagnosis Pre-operative examination- Primary Preoperative examination, unspecified Incomplete left bundle branch block (LBBB) Essential hypertension, benign Bilateral leg edema Edema MORGAN (obstructive sleep apnea) Obstructive sleep apnea (adult) (pediatric) Morbid obesity (HCC) Morbid obesity Endometrial cancer (HCC)- Primary Malignant neoplasm of corpus uteri, except isthmus [facility] Diagnosis Pre-operative examination- Primary Preoperative examination, unspecified Incomplete left bundle branch block (LBBB) Essential hypertension, benign Bilateral leg edema Edema MORGAN (obstructive sleep apnea) Obstructive sleep apnea (adult) (pediatric) Morbid obesity (HCC) Morbid obesity Post-operative state- Primary Other postprocedural status [facility]* Diagnosis Pre-operative examination- Primary Preoperative examination, unspecified Incomplete left bundle branch block (LBBB) Essential hypertension, benign Bilateral leg edema Edema MORGAN (obstructive sleep apnea) Obstructive sleep apnea (adult) (pediatric) Morbid obesity (HCC) Morbid obesity Endometrial cancer (HCC)- Primary Malignant neoplasm of corpus uteri, except isthmus documented in this encounter [facility] note* Diagnosis Pre-operative examination- Primary Preoperative examination, unspecified Incomplete left bundle branch block (LBBB) Essential hypertension, benign Bilateral leg edema Edema MORGAN (obstructive sleep apnea) Obstructive sleep apnea (adult) (pediatric) Morbid obesity (HCC) Morbid obesity Post-operative state- Primary Other postprocedural status documented in this encounter [facility] note* Diagnosis Pre-operative examination- Primary Preoperative examination, unspecified Incomplete left bundle branch block (LBBB) Essential hypertension, benign Bilateral leg edema Edema MORGAN (obstructive sleep apnea) Obstructive sleep apnea (adult) (pediatric) Morbid obesity (HCC) Morbid obesity Encounter for follow-up surveillance of endometrial cancer- Primary Unspecified follow-up examination History of endometrial cancer Personal history of malignant neoplasm of other parts of uterus Vaginal itching Pruritus of genital organs documented in this encounter [facility] noteNo assessment information availableWSelect [facility] Phone: Instructions* Name Dates Details Patient Instructions Indication:BMI 45.0-49.9, adult Start:15-Apr-2021 Instruction Type:Provider Instructions for Treatment How to Access Health Informa tion Online using Patient Portal and 3rd [employer] Apps Indication:BMI 45.0-49.9, adult Start:15-Apr-2021 Instruction Type:Patient Education Patient Instructions Indication:BMI 45.0-49.9, adult Start:17-Sep-2020 Instruction Type:Provider Instructions for Treatment How to Access Health Informa tion Online using Patient Portal and 3rd [employer] Apps Indication:BMI 45.0-49.9, adult Start:17-Sep-2020 Instruction Type:Patient Education How to access health informa tion online Indication:Hypertension Start:16-Oct-2019 Instruction Type:Patient Education How to access health informa tion online - Detail Indication:Hypertension Start:16-Oct-2019 Instruction Type:Patient Education Patient Instructions Indication:Hypertension Start:16-Oct-2019 Instruction Type:Provider Instructions for Treatment How to access health informa tion online Indication:Well woman exam Start:14-Apr-2019 Instruction Type:Patient Education How to access health informa tion online - Detail Indication:Well woman exam Start:14-Apr-2019 Instruction Type:Patient Education Patient Instructions Indication:Well woman exam Start:14-Apr-2019 Instruction Type:Provider Instructions for Treatment How to access health informa tion online Indication:Hypertension Start:03-Sep-2018 Instruction Type:Patient Education How to access health informa tion online - Detail Indication:Hypertension Start:03-Sep-2018 Instruction Type:Patient Education Patient Instructions Indication:Hypertension Start:03-Sep-2018 Instruction Type:Provider Instructions for Treatment How to access health informa tion online Indication:Hypertension Start:02-Nov-2017 Instruction Type:Patient Education How to access health informa tion online - Detail Indication:Hypertension Start:02-Nov-2017 Instruction Type:Patient Education Patient Instructions Indication:Hypertension Start:02-Nov-2017 Instruction Type:Provider Instructions for Treatment How to access health informa tion online Indication:Current nonsmoker (Renamed from Current non-smoker) Start:20-Sep-2017 Instruction Type:Patient Education How to access health informa tion online - Detail Indication:Current nonsmoker (Renamed from Current non-smoker) Start:20-Sep-2017 Instruction Type:Patient Education Patient Instructions Indication:Current nonsmoker (Renamed from Current non-smoker) Start:20-Sep-2017 Instruction Type:Provider Instructions for Treatment How to access health informa tion online Indication:Abnormal gait Start:09-Feb-2017 Instruction Type:Patient Education How to access health informa tion online - Detail Indication:Abnormal gait Start:09-Feb-2017 Instruction Type:Patient Education Patient Instructions Indication:Abnormal gait Start:09-Feb-2017 Instruction Type:Provider Instructions for Treatment How to access health informa tion online Indication:Impaired fasting glucose Start:02-Feb-2017 Instruction Type:Patient Education How to access health informa tion online - Detail Indication:Impaired fasting glucose Start:02-Feb-2017 Instruction Type:Patient Education Patient Instructions Indication:Impaired fasting glucose Start:02-Feb-2017 Instruction Type:Provider Instructions for Treatment How to access health informa tion online Indication:Well woman exam Start:24-Jul-2016 Instruction Type:Patient Education How to access health informa tion online - Detail Indication:Well woman exam Start:24-Jul-2016 Instruction Type:Patient Education Patient Instructions Indication:Well woman exam Start:24-Jul-2016 Instruction Type:Provider Instructions for Treatment Patient Instructions Indication:Hypertension Start:10-Aug-2015 Instruction Type:Provider Instructions for Treatment How to access health informa tion online - Detail Indication:Hypertension Start:10-Aug-2015 Instruction Type:Patient Education How to access health informa tion online Indication:Hypertension Start:10-Aug-2015 Instruction Type:Patient Education Patient Instructions Indication:Impaired fasting glucose Start:07-Feb-2013 Instruction Type:Provider Instructions for Treatment Patient Instructions Indication:Onychomycosis Start:11-Jul-2012 Instruction Type:Provider Instructions for Treatment Patient Instructions Indication:Hypertension Start:13-Jun-2012 Instruction Type:Provider Instructions for Treatment [facility]; [facility] Work Phone: Instructions* Name Dates Details Patient Instructions Indication:BMI 45.0-49.9, adult Start:15-Apr-2021 Instruction Type:Provider Instructions for Treatment How to Access Health Informa tion Online using Patient Portal and [employer]rd [employer] Apps Indication:BMI 45.0-49.9, adult Start:15-Apr-2021 Instruction Type:Patient Education Patient Instructions Indication:BMI 45.0-49.9, adult Start:17-Sep-2020 Instruction Type:Provider Instructions for Treatment How to Access Health Informa tion Online using Patient Portal and [employer]rd [employer] Apps Indication:BMI 45.0-49.9, adult Start:17-Sep-2020 Instruction Type:Patient Education How to access health informa tion online Indication:Hypertension Start:16-Oct-2019 Instruction Type:Patient Education How to access health informa tion online - Detail Indication:Hypertension Start:16-Oct-2019 Instruction Type:Patient Education Patient Instructions Indication:Hypertension Start:16-Oct-2019 Instruction Type:Provider Instructions for Treatment How to access health informa tion online Indication:Well woman exam Start:14-Apr-2019 Instruction Type:Patient Education How to access health informa tion online - Detail Indication:Well woman exam Start:14-Apr-2019 Instruction Type:Patient Education Patient Instructions Indication:Well woman exam Start:14-Apr-2019 Instruction Type:Provider Instructions for Treatment How to access health informa tion online Indication:Hypertension Start:8-Raymond-2019 Instruction Type:Patient Education How to access health informa tion online - Detail Indication:Hypertension Start:03-Sep-2018 Instruction Type:Patient Education Patient Instructions Indication:Hypertension Start:03-Sep-2018 Instruction Type:Provider Instructions for Treatment How to access health informa tion online Indication:Hypertension Start:02-Nov-2017 Instruction Type:Patient Education How to access health informa tion online - Detail Indication:Hypertension Start:02-Nov-2017 Instruction Type:Patient Education Patient Instructions Indication:Hypertension Start:02-Nov-2017 Instruction Type:Provider Instructions for Treatment How to access health informa tion online Indication:Current nonsmoker (Renamed from Current non-smoker) Start:20-Sep-2017 Instruction Type:Patient Education How to access health informa tion online - Detail Indication:Current nonsmoker (Renamed from Current non-smoker) Start:20-Sep-2017 Instruction Type:Patient Education Patient Instructions Indication:Current nonsmoker (Renamed from Current non-smoker) Start:20-Sep-2017 Instruction Type:Provider Instructions for Treatment How to access health informa tion online Indication:Abnormal gait Start:09-Feb-2017 Instruction Type:Patient Education How to access health informa tion online - Detail Indication:Abnormal gait Start:09-Feb-2017 Instruction Type:Patient Education Patient Instructions Indication:Abnormal gait Start:09-Feb-2017 Instruction Type:Provider Instructions for Treatment How to access health informa tion online Indication:Impaired fasting glucose Start:02-Feb-2017 Instruction Type:Patient Education How to access health informa tion online - Detail Indication:Impaired fasting glucose Start:02-Feb-2017 Instruction Type:Patient Education Patient Instructions Indication:Impaired fasting glucose Start:02-Feb-2017 Instruction Type:Provider Instructions for Treatment How to access health informa tion online Indication:Well woman exam Start:24-Jul-2016 Instruction Type:Patient Education How to access health informa tion online - Detail Indication:Well woman exam Start:24-Jul-2016 Instruction Type:Patient Education Patient Instructions Indication:Well woman exam Start:24-Jul-2016 Instruction Type:Provider Instructions for Treatment Patient Instructions Indication:Hypertension Start:10-Aug-2015 Instruction Type:Provider Instructions for Treatment How to access health informa tion online - Detail Indication:Hypertension Start:10-Aug-2015 Instruction Type:Patient Education How to access health informa tion online Indication:Hypertension Start:10-Aug-2015 Instruction Type:Patient Education Patient Instructions Indication:Impaired fasting glucose Start:07-Feb-2013 Instruction Type:Provider Instructions for Treatment Patient Instructions Indication:Onychomycosis Start:11-Jul-2012 Instruction Type:Provider Instructions for Treatment Patient Instructions Indication:Hypertension Start:13-Jun-2012 Instruction Type:Provider Instructions for Treatment [facility]; [facility] Work Phone: Instructions* Name Dates Details Patient Instructions Indication:BMI 45.0-49.9, adult Start:15-Apr-2021 Instruction Type:Provider Instructions for Treatment How to Access Health Informa tion Online using Patient Portal and [employer] Apps Indication:BMI 45.0-49.9, adult Start:15-Apr-2021 Instruction Type:Patient Education Patient Instructions Indication:BMI 45.0-49.9, adult Start:17-Sep-2020 Instruction Type:Provider Instructions for Treatment How to Access Health Informa tion Online using Patient Portal and [employer] Apps Indication:BMI 45.0-49.9, adult Start:17-Sep-2020 Instruction Type:Patient Education How to access health informa tion online Indication:Hypertension Start:16-Oct-2019 Instruction Type:Patient Education How to access health informa tion online - Detail Indication:Hypertension Start:16-Oct-2019 Instruction Type:Patient Education Patient Instructions Indication:Hypertension Start:16-Oct-2019 Instruction Type:Provider Instructions for Treatment How to access health informa tion online Indication:Well woman exam Start:14-Apr-2019 Instruction Type:Patient Education How to access health informa tion online - Detail Indication:Well woman exam Start:14-Apr-2019 Instruction Type:Patient Education Patient Instructions Indication:Well woman exam Start:14-Apr-2019 Instruction Type:Provider Instructions for Treatment How to access health informa tion online Indication:Hypertension Start:03-Sep-2018 Instruction Type:Patient Education How to access health informa tion online - Detail Indication:Hypertension Start:03-Sep-2018 Instruction Type:Patient Education Patient Instructions Indication:Hypertension Start:03-Sep-2018 Instruction Type:Provider Instructions for Treatment How to access health informa tion online Indication:Hypertension Start:02-Nov-2017 Instruction Type:Patient Education How to access health informa tion online - Detail Indication:Hypertension Start:02-Nov-2017 Instruction Type:Patient Education Patient Instructions Indication:Hypertension Start:02-Nov-2017 Instruction Type:Provider Instructions for Treatment How to access health informa tion online Indication:Current nonsmoker (Renamed from Current non-smoker) Start:20-Sep-2017 Instruction Type:Patient Education How to access health informa tion online - Detail Indication:Current nonsmoker (Renamed from Current non-smoker) Start:20-Sep-2017 Instruction Type:Patient Education Patient Instructions Indication:Current nonsmoker (Renamed from Current non-smoker) Start:20-Sep-2017 Instruction Type:Provider Instructions for Treatment How to access health informa tion online Indication:Abnormal gait Start:09-Feb-2017 Instruction Type:Patient Education How to access health informa tion online - Detail Indication:Abnormal gait Start:09-Feb-2017 Instruction Type:Patient Education Patient Instructions Indication:Abnormal gait Start:09-Feb-2017 Instruction Type:Provider Instructions for Treatment How to access health informa tion online Indication:Impaired fasting glucose Start:02-Feb-2017 Instruction Type:Patient Education How to access health informa tion online - Detail Indication:Impaired fasting glucose Start:02-Feb-2017 Instruction Type:Patient Education Patient Instructions Indication:Impaired fasting glucose Start:02-Feb-2017 Instruction Type:Provider Instructions for Treatment How to access health informa tion online Indication:Well woman exam Start:24-Jul-2016 Instruction Type:Patient Education How to access health informa tion online - Detail Indication:Well woman exam Start:24-Jul-2016 Instruction Type:Patient Education Patient Instructions Indication:Well woman exam Start:24-Jul-2016 Instruction Type:Provider Instructions for Treatment Patient Instructions Indication:Hypertension Start:10-Aug-2015 Instruction Type:Provider Instructions for Treatment How to access health informa tion online - Detail Indication:Hypertension Start:10-Aug-2015 Instruction Type:Patient Education How to access health informa tion online Indication:Hypertension Start:10-Aug-2015 Instruction Type:Patient Education Patient Instructions Indication:Impaired fasting glucose Start:07-Feb-2013 Instruction Type:Provider Instructions for Treatment Patient Instructions Indication:Onychomycosis Start:11-Jul-2012 Instruction Type:Provider Instructions for Treatment Patient Instructions Indication:Hypertension Start:13-Jun-2012 Instruction Type:Provider Instructions for Treatment [facility]; [facility] Work Phone: Instructions* Name Dates Details Patient Instructions Indication:Current nonsmoker (Renamed from Current non-smoker) Start:07-Nov-2021 Instruction Type:Provider Instructions for Treatment How to Access Health Informa tion Online using Patient Portal and [employer] Apps Indication:Current nonsmoker (Renamed from Current non-smoker) Start:07-Nov-2021 Instruction Type:Patient Education Patient Instructions Indication:BMI 45.0-49.9, adult Start:15-Apr-2021 Instruction Type:Provider Instructions for Treatment How to Access Health Informa tion Online using Patient Portal and [employer] Apps Indication:BMI 45.0-49.9, adult Start:15-Apr-2021 Instruction Type:Patient Education Patient Instructions Indication:BMI 45.0-49.9, adult Start:17-Sep-2020 Instruction Type:Provider Instructions for Treatment How to Access Health Informa tion Online using Patient Portal and [employer] Apps Indication:BMI 45.0-49.9, adult Start:17-Sep-2020 Instruction Type:Patient Education How to access health informa tion online Indication:Hypertension Start:16-Oct-2019 Instruction Type:Patient Education How to access health informa tion online - Detail Indication:Hypertension Start:16-Oct-2019 Instruction Type:Patient Education Patient Instructions Indication:Hypertension Start:16-Oct-2019 Instruction Type:Provider Instructions for Treatment How to access health informa tion online Indication:Well woman exam Start:14-Apr-2019 Instruction Type:Patient Education How to access health informa tion online - Detail Indication:Well woman exam Start:14-Apr-2019 Instruction Type:Patient Education Patient Instructions Indication:Well woman exam Start:14-Apr-2019 Instruction Type:Provider Instructions for Treatment How to access health informa tion online Indication:Hypertension Start:03-Sep-2018 Instruction Type:Patient Education How to access health informa tion online - Detail Indication:Hypertension Start:03-Sep-2018 Instruction Type:Patient Education Patient Instructions Indication:Hypertension Start:03-Sep-2018 Instruction Type:Provider Instructions for Treatment How to access health informa tion online Indication:Hypertension Start:02-Nov-2017 Instruction Type:Patient Education How to access health informa tion online - Detail Indication:Hypertension Start:02-Nov-2017 Instruction Type:Patient Education Patient Instructions Indication:Hypertension Start:02-Nov-2017 Instruction Type:Provider Instructions for Treatment How to access health informa tion online Indication:Current nonsmoker (Renamed from Current non-smoker) Start:20-Sep-2017 Instruction Type:Patient Education How to access health informa tion online - Detail Indication:Current nonsmoker (Renamed from Current non-smoker) Start:20-Sep-2017 Instruction Type:Patient Education Patient Instructions Indication:Current nonsmoker (Renamed from Current non-smoker) Start:20-Sep-2017 Instruction Type:Provider Instructions for Treatment How to access health informa tion online Indication:Abnormal gait Start:09-Feb-2017 Instruction Type:Patient Education How to access health informa tion online - Detail Indication:Abnormal gait Start:09-Feb-2017 Instruction Type:Patient Education Patient Instructions Indication:Abnormal gait Start:09-Feb-2017 Instruction Type:Provider Instructions for Treatment How to access health informa tion online Indication:Impaired fasting glucose Start:02-Feb-2017 Instruction Type:Patient Education How to access health informa tion online - Detail Indication:Impaired fasting glucose Start:02-Feb-2017 Instruction Type:Patient Education Patient Instructions Indication:Impaired fasting glucose Start:02-Feb-2017 Instruction Type:Provider Instructions for Treatment How to access health informa tion online Indication:Well woman exam Start:24-Jul-2016 Instruction Type:Patient Education How to access health informa tion online - Detail Indication:Well woman exam Start:24-Jul-2016 Instruction Type:Patient Education Patient Instructions Indication:Well woman exam Start:24-Jul-2016 Instruction Type:Provider Instructions for Treatment Patient Instructions Indication:Hypertension Start:10-Aug-2015 Instruction Type:Provider Instructions for Treatment How to access health informa tion online - Detail Indication:Hypertension Start:10-Aug-2015 Instruction Type:Patient Education How to access health informa tion online Indication:Hypertension Start:10-Aug-2015 Instruction Type:Patient Education Patient Instructions Indication:Impaired fasting glucose Start:07-Feb-2013 Instruction Type:Provider Instructions for Treatment Patient Instructions Indication:Onychomycosis Start:11-Jul-2012 Instruction Type:Provider Instructions for Treatment Patient Instructions Indication:Hypertension Start:13-Jun-2012 Instruction Type:Provider Instructions for Treatment [facility]; [facility] Work Phone: Instructions* Name Dates Details Patient Instructions Indication:Current nonsmoker (Renamed from Current non-smoker) Start:07-Nov-2021 Instruction Type:Provider Instructions for Treatment How to Access Health Informa tion Online using Patient Portal and [employer] Apps Indication:Current nonsmoker (Renamed from Current non-smoker) Start:07-Nov-2021 Instruction Type:Patient Education Patient Instructions Indication:BMI 45.0-49.9, adult Start:15-Apr-2021 Instruction Type:Provider Instructions for Treatment How to Access Health Informa tion Online using Patient Portal and [employer]rd [employer] Apps Indication:BMI 45.0-49.9, adult Start:15-Apr-2021 Instruction Type:Patient Education Patient Instructions Indication:BMI 45.0-49.9, adult Start:17-Sep-2020 Instruction Type:Provider Instructions for Treatment How to Access Health Informa tion Online using Patient Portal and [employer] Apps Indication:BMI 45.0-49.9, adult Start:17-Sep-2020 Instruction Type:Patient Education How to access health informa tion online Indication:Hypertension Start:16-Oct-2019 Instruction Type:Patient Education How to access health informa tion online - Detail Indication:Hypertension Start:16-Oct-2019 Instruction Type:Patient Education Patient Instructions Indication:Hypertension Start:16-Oct-2019 Instruction Type:Provider Instructions for Treatment How to access health informa tion online Indication:Well woman exam Start:14-Apr-2019 Instruction Type:Patient Education How to access health informa tion online - Detail Indication:Well woman exam Start:14-Apr-2019 Instruction Type:Patient Education Patient Instructions Indication:Well woman exam Start:14-Apr-2019 Instruction Type:Provider Instructions for Treatment How to access health informa tion online Indication:Hypertension Start:03-Sep-2018 Instruction Type:Patient Education How to access health informa tion online - Detail Indication:Hypertension Start:03-Sep-2018 Instruction Type:Patient Education Patient Instructions Indication:Hypertension Start:03-Sep-2018 Instruction Type:Provider Instructions for Treatment How to access health informa tion online Indication:Hypertension Start:02-Nov-2017 Instruction Type:Patient Education How to access health informa tion online - Detail Indication:Hypertension Start:02-Nov-2017 Instruction Type:Patient Education Patient Instructions Indication:Hypertension Start:02-Nov-2017 Instruction Type:Provider Instructions for Treatment How to access health informa tion online Indication:Current nonsmoker (Renamed from Current non-smoker) Start:20-Sep-2017 Instruction Type:Patient Education How to access health informa tion online - Detail Indication:Current nonsmoker (Renamed from Current non-smoker) Start:20-Sep-2017 Instruction Type:Patient Education Patient Instructions Indication:Current nonsmoker (Renamed from Current non-smoker) Start:20-Sep-2017 Instruction Type:Provider Instructions for Treatment How to access health informa tion online Indication:Abnormal gait Start:09-Feb-2017 Instruction Type:Patient Education How to access health informa tion online - Detail Indication:Abnormal gait Start:09-Feb-2017 Instruction Type:Patient Education Patient Instructions Indication:Abnormal gait Start:09-Feb-2017 Instruction Type:Provider Instructions for Treatment How to access health informa tion online Indication:Impaired fasting glucose Start:02-Feb-2017 Instruction Type:Patient Education How to access health informa tion online - Detail Indication:Impaired fasting glucose Start:02-Feb-2017 Instruction Type:Patient Education Patient Instructions Indication:Impaired fasting glucose Start:02-Feb-2017 Instruction Type:Provider Instructions for Treatment How to access health informa tion online Indication:Well woman exam Start:24-Jul-2016 Instruction Type:Patient Education How to access health informa tion online - Detail Indication:Well woman exam Start:24-Jul-2016 Instruction Type:Patient Education Patient Instructions Indication:Well woman exam Start:24-Jul-2016 Instruction Type:Provider Instructions for Treatment Patient Instructions Indication:Hypertension Start:10-Aug-2015 Instruction Type:Provider Instructions for Treatment How to access health informa tion online - Detail Indication:Hypertension Start:10-Aug-2015 Instruction Type:Patient Education How to access health informa tion online Indication:Hypertension Start:10-Aug-2015 Instruction Type:Patient Education Patient Instructions Indication:Impaired fasting glucose Start:07-Feb-2013 Instruction Type:Provider Instructions for Treatment Patient Instructions Indication:Onychomycosis Start:11-Jul-2012 Instruction Type:Provider Instructions for Treatment Patient Instructions Indication:Hypertension Start:13-Jun-2012 Instruction Type:Provider Instructions for Treatment [facility]; [facility] Work Phone: Instructions* Name Dates Details Patient Instructions Indication:Current nonsmoker (Renamed from Current non-smoker) Start:07-Nov-2021 Instruction Type:Provider Instructions for Treatment How to Access Health Informa tion Online using Patient Portal and [employer]rd [employer] Apps Indication:Current nonsmoker (Renamed from Current non-smoker) Start:07-Nov-2021 Instruction Type:Patient Education Patient Instructions Indication:BMI 45.0-49.9, adult Start:15-Apr-2021 Instruction Type:Provider Instructions for Treatment How to Access Health Informa tion Online using Patient Portal and [employer] Apps Indication:BMI 45.0-49.9, adult Start:15-Apr-2021 Instruction Type:Patient Education Patient Instructions Indication:BMI 45.0-49.9, adult Start:17-Sep-2020 Instruction Type:Provider Instructions for Treatment How to Access Health Informa tion Online using Patient Portal and [employer] Apps Indication:BMI 45.0-49.9, adult Start:17-Sep-2020 Instruction Type:Patient Education How to access health informa tion online Indication:Hypertension Start:16-Oct-2019 Instruction Type:Patient Education How to access health informa tion online - Detail Indication:Hypertension Start:16-Oct-2019 Instruction Type:Patient Education Patient Instructions Indication:Hypertension Start:16-Oct-2019 Instruction Type:Provider Instructions for Treatment How to access health informa tion online Indication:Well woman exam Start:14-Apr-2019 Instruction Type:Patient Education How to access health informa tion online - Detail Indication:Well woman exam Start:14-Apr-2019 Instruction Type:Patient Education Patient Instructions Indication:Well woman exam Start:14-Apr-2019 Instruction Type:Provider Instructions for Treatment How to access health informa tion online Indication:Hypertension Start:03-Sep-2018 Instruction Type:Patient Education How to access health informa tion online - Detail Indication:Hypertension Start:03-Sep-2018 Instruction Type:Patient Education Patient Instructions Indication:Hypertension Start:03-Sep-2018 Instruction Type:Provider Instructions for Treatment How to access health informa tion online Indication:Hypertension Start:02-Nov-2017 Instruction Type:Patient Education How to access health informa tion online - Detail Indication:Hypertension Start:02-Nov-2017 Instruction Type:Patient Education Patient Instructions Indication:Hypertension Start:02-Nov-2017 Instruction Type:Provider Instructions for Treatment How to access health informa tion online Indication:Current nonsmoker (Renamed from Current non-smoker) Start:20-Sep-2017 Instruction Type:Patient Education How to access health informa tion online - Detail Indication:Current nonsmoker (Renamed from Current non-smoker) Start:20-Sep-2017 Instruction Type:Patient Education Patient Instructions Indication:Current nonsmoker (Renamed from Current non-smoker) Start:20-Sep-2017 Instruction Type:Provider Instructions for Treatment How to access health informa tion online Indication:Abnormal gait Start:09-Feb-2017 Instruction Type:Patient Education How to access health informa tion online - Detail Indication:Abnormal gait Start:09-Feb-2017 Instruction Type:Patient Education Patient Instructions Indication:Abnormal gait Start:09-Feb-2017 Instruction Type:Provider Instructions for Treatment How to access health informa tion online Indication:Impaired fasting glucose Start:02-Feb-2017 Instruction Type:Patient Education How to access health informa tion online - Detail Indication:Impaired fasting glucose Start:02-Feb-2017 Instruction Type:Patient Education Patient Instructions Indication:Impaired fasting glucose Start:02-Feb-2017 Instruction Type:Provider Instructions for Treatment How to access health informa tion online Indication:Well woman exam Start:24-Jul-2016 Instruction Type:Patient Education How to access health informa tion online - Detail Indication:Well woman exam Start:24-Jul-2016 Instruction Type:Patient Education Patient Instructions Indication:Well woman exam Start:24-Jul-2016 Instruction Type:Provider Instructions for Treatment Patient Instructions Indication:Hypertension Start:10-Aug-2015 Instruction Type:Provider Instructions for Treatment How to access health informa tion online - Detail Indication:Hypertension Start:10-Aug-2015 Instruction Type:Patient Education How to access health informa tion online Indication:Hypertension Start:10-Aug-2015 Instruction Type:Patient Education Patient Instructions Indication:Impaired fasting glucose Start:07-Feb-2013 Instruction Type:Provider Instructions for Treatment Patient Instructions Indication:Onychomycosis Start:11-Jul-2012 Instruction Type:Provider Instructions for Treatment Patient Instructions Indication:Hypertension Start:13-Jun-2012 Instruction Type:Provider Instructions for Treatment [facility]; [facility] Work Phone: Instructions* Name Dates Details Patient Instructions Indication:BMI 50.0-59.9, adult Start:25-Jul-2022 Instruction Type:Provider Instructions for Treatment How to Access Health Informa tion Online using Patient Portal and [employer] Apps Indication:BMI 50.0-59.9, adult Start:25-Jul-2022 Instruction Type:Patient Education Patient Instructions Indication:Current nonsmoker (Renamed from Current non-smoker) Start:07-Nov-2021 Instruction Type:Provider Instructions for Treatment How to Access Health Informa tion Online using Patient Portal and [employer]rd [employer] Apps Indication:Current nonsmoker (Renamed from Current non-smoker) Start:07-Nov-2021 Instruction Type:Patient Education Patient Instructions Indication:BMI 45.0-49.9, adult Start:15-Apr-2021 Instruction Type:Provider Instructions for Treatment How to Access Health Informa tion Online using Patient Portal and [employer]rd [employer] Apps Indication:BMI 45.0-49.9, adult Start:15-Apr-2021 Instruction Type:Patient Education Patient Instructions Indication:BMI 45.0-49.9, adult Start:17-Sep-2020 Instruction Type:Provider Instructions for Treatment How to Access Health Informa tion Online using Patient Portal and [employer] Apps Indication:BMI 45.0-49.9, adult Start:17-Sep-2020 Instruction Type:Patient Education How to access health informa tion online Indication:Hypertension Start:16-Oct-2019 Instruction Type:Patient Education How to access health informa tion online - Detail Indication:Hypertension Start:16-Oct-2019 Instruction Type:Patient Education Patient Instructions Indication:Hypertension Start:16-Oct-2019 Instruction Type:Provider Instructions for Treatment How to access health informa tion online Indication:Well woman exam Start:14-Apr-2019 Instruction Type:Patient Education How to access health informa tion online - Detail Indication:Well woman exam Start:14-Apr-2019 Instruction Type:Patient Education Patient Instructions Indication:Well woman exam Start:14-Apr-2019 Instruction Type:Provider Instructions for Treatment How to access health informa tion online Indication:Hypertension Start:03-Sep-2018 Instruction Type:Patient Education How to access health informa tion online - Detail Indication:Hypertension Start:03-Sep-2018 Instruction Type:Patient Education Patient Instructions Indication:Hypertension Start:03-Sep-2018 Instruction Type:Provider Instructions for Treatment How to access health informa tion online Indication:Hypertension Start:02-Nov-2017 Instruction Type:Patient Education How to access health informa tion online - Detail Indication:Hypertension Start:02-Nov-2017 Instruction Type:Patient Education Patient Instructions Indication:Hypertension Start:02-Nov-2017 Instruction Type:Provider Instructions for Treatment How to access health informa tion online Indication:Current nonsmoker (Renamed from Current non-smoker) Start:20-Sep-2017 Instruction Type:Patient Education How to access health informa tion online - Detail Indication:Current nonsmoker (Renamed from Current non-smoker) Start:20-Sep-2017 Instruction Type:Patient Education Patient Instructions Indication:Current nonsmoker (Renamed from Current non-smoker) Start:20-Sep-2017 Instruction Type:Provider Instructions for Treatment How to access health informa tion online Indication:Abnormal gait Start:09-Feb-2017 Instruction Type:Patient Education How to access health informa tion online - Detail Indication:Abnormal gait Start:09-Feb-2017 Instruction Type:Patient Education Patient Instructions Indication:Abnormal gait Start:09-Feb-2017 Instruction Type:Provider Instructions for Treatment How to access health informa tion online Indication:Impaired fasting glucose Start:02-Feb-2017 Instruction Type:Patient Education How to access health informa tion online - Detail Indication:Impaired fasting glucose Start:02-Feb-2017 Instruction Type:Patient Education Patient Instructions Indication:Impaired fasting glucose Start:02-Feb-2017 Instruction Type:Provider Instructions for Treatment How to access health informa tion online Indication:Well woman exam Start:24-Jul-2016 Instruction Type:Patient Education How to access health informa tion online - Detail Indication:Well woman exam Start:24-Jul-2016 Instruction Type:Patient Education Patient Instructions Indication:Well woman exam Start:24-Jul-2016 Instruction Type:Provider Instructions for Treatment Patient Instructions Indication:Hypertension Start:10-Aug-2015 Instruction Type:Provider Instructions for Treatment How to access health informa tion online - Detail Indication:Hypertension Start:10-Aug-2015 Instruction Type:Patient Education How to access health informa tion online Indication:Hypertension Start:10-Aug-2015 Instruction Type:Patient Education Patient Instructions Indication:Impaired fasting glucose Start:07-Feb-2013 Instruction Type:Provider Instructions for Treatment Patient Instructions Indication:Onychomycosis Start:11-Jul-2012 Instruction Type:Provider Instructions for Treatment Patient Instructions Indication:Hypertension Start:13-Jun-2012 Instruction Type:Provider Instructions for Treatment [facility] Work Phone: Instructions* Name Dates Details Patient Instructions Indication:BMI 50.0-59.9, adult Start:25-Jul-2022 Instruction Type:Provider Instructions for Treatment How to Access Health Informa tion Online using Patient Portal and 3rd [employer] Apps Indication:BMI 50.0-59.9, adult Start:25-Jul-2022 Instruction Type:Patient Education Patient Instructions Indication:Current nonsmoker (Renamed from Current non-smoker) Start:07-Nov-2021 Instruction Type:Provider Instructions for Treatment How to Access Health Informa tion Online using Patient Portal and 3rd [employer] Apps Indication:Current nonsmoker (Renamed from Current non-smoker) Start:07-Nov-2021 Instruction Type:Patient Education Patient Instructions Indication:BMI 45.0-49.9, adult Start:15-Apr-2021 Instruction Type:Provider Instructions for Treatment How to Access Health Informa tion Online using Patient Portal and 3rd [employer] Apps Indication:BMI 45.0-49.9, adult Start:15-Apr-2021 Instruction Type:Patient Education Patient Instructions Indication:BMI 45.0-49.9, adult Start:17-Sep-2020 Instruction Type:Provider Instructions for Treatment How to Access Health Informa tion Online using Patient Portal and 3rd [employer] Apps Indication:BMI 45.0-49.9, adult Start:17-Sep-2020 Instruction Type:Patient Education How to access health informa tion online Indication:Hypertension Start:16-Oct-2019 Instruction Type:Patient Education How to access health informa tion online - Detail Indication:Hypertension Start:16-Oct-2019 Instruction Type:Patient Education Patient Instructions Indication:Hypertension Start:16-Oct-2019 Instruction Type:Provider Instructions for Treatment How to access health informa tion online Indication:Well woman exam Start:14-Apr-2019 Instruction Type:Patient Education How to access health informa tion online - Detail Indication:Well woman exam Start:14-Apr-2019 Instruction Type:Patient Education Patient Instructions Indication:Well woman exam Start:14-Apr-2019 Instruction Type:Provider Instructions for Treatment How to access health informa tion online Indication:Hypertension Start:03-Sep-2018 Instruction Type:Patient Education How to access health informa tion online - Detail Indication:Hypertension Start:03-Sep-2018 Instruction Type:Patient Education Patient Instructions Indication:Hypertension Start:03-Sep-2018 Instruction Type:Provider Instructions for Treatment How to access health informa tion online Indication:Hypertension Start:02-Nov-2017 Instruction Type:Patient Education How to access health informa tion online - Detail Indication:Hypertension Start:02-Nov-2017 Instruction Type:Patient Education Patient Instructions Indication:Hypertension Start:02-Nov-2017 Instruction Type:Provider Instructions for Treatment How to access health informa tion online Indication:Current nonsmoker (Renamed from Current non-smoker) Start:20-Sep-2017 Instruction Type:Patient Education How to access health informa tion online - Detail Indication:Current nonsmoker (Renamed from Current non-smoker) Start:20-Sep-2017 Instruction Type:Patient Education Patient Instructions Indication:Current nonsmoker (Renamed from Current non-smoker) Start:20-Sep-2017 Instruction Type:Provider Instructions for Treatment How to access health informa tion online Indication:Abnormal gait Start:09-Feb-2017 Instruction Type:Patient Education How to access health informa tion online - Detail Indication:Abnormal gait Start:09-Feb-2017 Instruction Type:Patient Education Patient Instructions Indication:Abnormal gait Start:09-Feb-2017 Instruction Type:Provider Instructions for Treatment How to access health informa tion online Indication:Impaired fasting glucose Start:02-Feb-2017 Instruction Type:Patient Education How to access health informa tion online - Detail Indication:Impaired fasting glucose Start:02-Feb-2017 Instruction Type:Patient Education Patient Instructions Indication:Impaired fasting glucose Start:02-Feb-2017 Instruction Type:Provider Instructions for Treatment How to access health informa tion online Indication:Well woman exam Start:24-Jul-2016 Instruction Type:Patient Education How to access health informa tion online - Detail Indication:Well woman exam Start:24-Jul-2016 Instruction Type:Patient Education Patient Instructions Indication:Well woman exam Start:24-Jul-2016 Instruction Type:Provider Instructions for Treatment Patient Instructions Indication:Hypertension Start:10-Aug-2015 Instruction Type:Provider Instructions for Treatment How to access health informa tion online - Detail Indication:Hypertension Start:10-Aug-2015 Instruction Type:Patient Education How to access health informa tion online Indication:Hypertension Start:10-Aug-2015 Instruction Type:Patient Education Patient Instructions Indication:Impaired fasting glucose Start:07-Feb-2013 Instruction Type:Provider Instructions for Treatment Patient Instructions Indication:Onychomycosis Start:11-Jul-2012 Instruction Type:Provider Instructions for Treatment Patient Instructions Indication:Hypertension Start:13-Jun-2012 Instruction Type:Provider Instructions for Treatment [facility] Work Phone: Instructions* Name Dates Details Patient Instructions Indication:BMI 50.0-59.9, adult Start:25-Jul-2022 Instruction Type:Provider Instructions for Treatment How to Access Health Informa tion Online using Patient Portal and 3rd [employer] Apps Indication:BMI 50.0-59.9, adult Start:25-Jul-2022 Instruction Type:Patient Education Patient Instructions Indication:Current nonsmoker (Renamed from Current non-smoker) Start:07-Nov-2021 Instruction Type:Provider Instructions for Treatment How to Access Health Informa tion Online using Patient Portal and 3rd [employer] Apps Indication:Current nonsmoker (Renamed from Current non-smoker) Start:07-Nov-2021 Instruction Type:Patient Education Patient Instructions Indication:BMI 45.0-49.9, adult Start:15-Apr-2021 Instruction Type:Provider Instructions for Treatment How to Access Health Informa tion Online using Patient Portal and 3rd [employer] Apps Indication:BMI 45.0-49.9, adult Start:15-Apr-2021 Instruction Type:Patient Education Patient Instructions Indication:BMI 45.0-49.9, adult Start:17-Sep-2020 Instruction Type:Provider Instructions for Treatment How to Access Health Informa tion Online using Patient Portal and 3rd [employer] Apps Indication:BMI 45.0-49.9, adult Start:17-Sep-2020 Instruction Type:Patient Education How to access health informa tion online Indication:Hypertension Start:16-Oct-2019 Instruction Type:Patient Education How to access health informa tion online - Detail Indication:Hypertension Start:16-Oct-2019 Instruction Type:Patient Education Patient Instructions Indication:Hypertension Start:16-Oct-2019 Instruction Type:Provider Instructions for Treatment How to access health informa tion online Indication:Well woman exam Start:14-Apr-2019 Instruction Type:Patient Education How to access health informa tion online - Detail Indication:Well woman exam Start:14-Apr-2019 Instruction Type:Patient Education Patient Instructions Indication:Well woman exam Start:14-Apr-2019 Instruction Type:Provider Instructions for Treatment How to access health informa tion online Indication:Hypertension Start:03-Sep-2018 Instruction Type:Patient Education How to access health informa tion online - Detail Indication:Hypertension Start:03-Sep-2018 Instruction Type:Patient Education Patient Instructions Indication:Hypertension Start:03-Sep-2018 Instruction Type:Provider Instructions for Treatment How to access health informa tion online Indication:Hypertension Start:02-Nov-2017 Instruction Type:Patient Education How to access health informa tion online - Detail Indication:Hypertension Start:02-Nov-2017 Instruction Type:Patient Education Patient Instructions Indication:Hypertension Start:02-Nov-2017 Instruction Type:Provider Instructions for Treatment How to access health informa tion online Indication:Current nonsmoker (Renamed from Current non-smoker) Start:20-Sep-2017 Instruction Type:Patient Education How to access health informa tion online - Detail Indication:Current nonsmoker (Renamed from Current non-smoker) Start:20-Sep-2017 Instruction Type:Patient Education Patient Instructions Indication:Current nonsmoker (Renamed from Current non-smoker) Start:20-Sep-2017 Instruction Type:Provider Instructions for Treatment How to access health informa tion online Indication:Abnormal gait Start:09-Feb-2017 Instruction Type:Patient Education How to access health informa tion online - Detail Indication:Abnormal gait Start:09-Feb-2017 Instruction Type:Patient Education Patient Instructions Indication:Abnormal gait Start:09-Feb-2017 Instruction Type:Provider Instructions for Treatment How to access health informa tion online Indication:Impaired fasting glucose Start:02-Feb-2017 Instruction Type:Patient Education How to access health informa tion online - Detail Indication:Impaired fasting glucose Start:02-Feb-2017 Instruction Type:Patient Education Patient Instructions Indication:Impaired fasting glucose Start:02-Feb-2017 Instruction Type:Provider Instructions for Treatment How to access health informa tion online Indication:Well woman exam Start:24-Jul-2016 Instruction Type:Patient Education How to access health informa tion online - Detail Indication:Well woman exam Start:24-Jul-2016 Instruction Type:Patient Education Patient Instructions Indication:Well woman exam Start:24-Jul-2016 Instruction Type:Provider Instructions for Treatment Patient Instructions Indication:Hypertension Start:10-Aug-2015 Instruction Type:Provider Instructions for Treatment How to access health informa tion online - Detail Indication:Hypertension Start:10-Aug-2015 Instruction Type:Patient Education How to access health informa tion online Indication:Hypertension Start:10-Aug-2015 Instruction Type:Patient Education Patient Instructions Indication:Impaired fasting glucose Start:07-Feb-2013 Instruction Type:Provider Instructions for Treatment Patient Instructions Indication:Onychomycosis Start:11-Jul-2012 Instruction Type:Provider Instructions for Treatment Patient Instructions Indication:Hypertension Start:13-Jun-2012 Instruction Type:Provider Instructions for Treatment [facility] Work Phone: reason for referral (narrative)* Diagnostic Procedure Only (Routine) - Authorized Specialty Diagnoses / Procedures Referred By Contac t Referred To Contact [facility] Diagnoses Postmenopausal bleeding Procedures PELVIC US I US PELVIC NONOBSTETRIC REAL-TIME IMAGE COMPLETE Hunter Her MD [address] [place] [address] [facility] [address] [place] [address] Referral ID Status Reason Start Date Expiration Date Visits Requested Visits Authorized [id number] Authorized Auto-Generat ed Referral 05/08/2024 05/08/2025 [address] [facility] for referral (narrative)* Outpatient Procedure (Routine) - New Request Specialty Diagnoses / Procedures Referred By Contac t Referred To Contact [facility] Diagnoses Pre-op testing Procedures ECG COMPLETE ECG ROUTINE ECG W/LEAST 12 LDS W/I&R Deja Nunez APRN.STORAGE MANAGER [address] [place] [address] [id number] [place] [address] Referral ID Status Reason Start Date Expiration Date Visits Requested Visits Authorized [id number] New Request Auto-Generat ed Referral 07/10/2025 1 1 * Consult, Test, Treat (Routine) - Authorized Specialty Diagnoses / Procedures Referred By Contac t Referred To Contact Diagnoses Pre-op testing Procedures REFER TO [facility] - PREOPERATIVE OPTIMIZATION OFFICE/OUTPATIENT NEW HIGH MDM 60 MINUTES Deja Nunez APRN.CNP [address] [place] [address] Referral ID Status Reason Start Date Expiration Date Visits Requested Visits Authorized [id number] Authorized PCP Requested Referral 4 07/10/2025 1 1 [facility]No reason for referral information [facility] Work Phone: Reason for visit Narrative* Diagnostic Procedure Only (Routine) - Closed Specialty Diagnoses / Procedures Referred By Contmony t Referred To Contact [facility] Diagnoses Postmenopausal bleeding Procedures PELVIC US WHI US PELVIC NONOBSTETRIC REAL-TIME IMAGE COMPLETE Hunter Her MD [address] [place] [address] [facility] [address] [place] [address] Referral ID Status Reason Start Date Expiration Date V isits Requested Visits Authorized [id number] Closed Auto-Generate d Referral 05/08/2024 05/08/2025 1 1 [facility] Family History No Family History Records FoundUnknown Family Member Name Dates Details Brother 1 Comments:NE started 42 yo- d ied of NE at age 53 Status:Active Brother 2 Comments:SVT Status:Active Daughter 1 Comments:healthy Status:Active Family Members In General Comments:Emotional problems, Heart/Lung problems, HBP, High cholesterol Status:Active Father Comments:Healthy, still chavo ng Status:Active Maternal Grandmother Comments:colon cancer 6 2yo Status:Active Mother Comments:Mild NE, hx peptic ulcers, GERD, CAD still living Status:Active Sister 1 Comments:younger. dx wtih CA D at 55. Status:Active Son 1 Comments:hyperlipidemia Status:Active Son 2 Comments:hyperlipidemia Status:Active Unknown Family Member Name Dates Details Brother 1 Comments:NE started 42 yo- d ied of [place] at age 53 Status:Active Brother 2 Comments:SVT Status:Active Daughter 1 Comments:healthy Status:Active Family Members In General Comments:Emotional problems, Heart/Lung problems, HBP, High cholesterol Status:Active Father Comments:Healthy, still chavo ng Status:Active Maternal Grandmother Comments:colon cancer 6 2yo Status:Active Mother Comments:Mild NE, hx peptic ulcers, GERD, CAD still living Status:Active Sister 1 Comments:younger. dx wtih CA D at 55. Status:Active Son 1 Comments:hyperlipidemia Status:Active Son 2 Comments:hyperlipidemia Status:Active Unknown Family Member Name Dates Details Brother 1 Comments:NE started 42 yo- d ied of [place] at age 53 Status:Active Brother 2 Comments:SVT Status:Active Daughter 1 Comments:healthy Status:Active Family Members In General Comments:Emotional problems, Heart/Lung problems, HBP, High cholesterol Status:Active Father Comments:Healthy, still chavo ng Status:Active Maternal Grandmother Comments:colon cancer 6 2yo Status:Active Mother Comments:Mild NE, hx peptic ulcers, GERD, CAD still living Status:Active Sister 1 Comments:younger. dx wtih CA D at 55. Status:Active Son 1 Comments:hyperlipidemia Status:Active Son 2 Comments:hyperlipidemia Status:Active Unknown Family Member Name Dates Details Brother 1 Comments:NE started 42 yo- d ied of NE at age 53 Status:Active Brother 2 Comments:SVT Status:Active Daughter 1 Comments:healthy Status:Active Family Members In General Comments:Emotional problems, Heart/Lung problems, HBP, High cholesterol Status:Active Father Comments:Healthy, still chavo ng Status:Active Maternal Grandmother Comments:colon cancer 6 2yo Status:Active Mother Comments:Mild NE, hx peptic ulcers, GERD, CAD still living Status:Active Sister 1 Comments:younger. dx wtih CA D at 55. Status:Active Son 1 Comments:hyperlipidemia Status:Active Son 2 Comments:hyperlipidemia Status:Active Unknown Family Member Name Dates Details Brother 1 Comments:NE started 42 yo- d ied of [place] at age 53 Status:Active Brother 2 Comments:SVT, afib Status:Active Daughter 1 Comments:healthy Status:Active Family Members In General Comments:Emotional problems, Heart/Lung problems, HBP, High cholesterol Status:Active Father Comments:Healthy, still chavo ng Status:Active Maternal Grandmother Comments:colon cancer 6 2yo Status:Active Mother Comments:Mild NE, hx peptic ulcers, GERD, CAD still living Status:Active Sister 1 Comments:younger. dx wtih CA D at 55. afib Status:Active Son 1 Comments:hyperlipidemia Status:Active Son 2 Comments:hyperlipidemia Status:Active Unknown Family Member Name Dates Details Brother 1 Comments:NE started 42 yo- d ied of [place] at age 53 Status:Active Brother 2 Comments:SVT, afib Status:Active Daughter 1 Comments:healthy Status:Active Family Members In General Comments:Emotional problems, Heart/Lung problems, HBP, High cholesterol Status:Active Father Comments:Healthy, still chavo ng Status:Active Maternal Grandmother Comments:colon cancer 6 2yo Status:Active Mother Comments:Mild NE, hx peptic ulcers, GERD, CAD still living Status:Active Sister 1 Comments:younger. dx wtih CA D at 55. afib Status:Active Son 1 Comments:hyperlipidemia Status:Active Son 2 Comments:hyperlipidemia Status:Active Unknown Family Member Name Dates Details Brother 1 Comments:NE started 42 yo- d ied of [place] at age 53 Status:Active Brother 2 Comments:SVT, afib Status:Active Daughter 1 Comments:healthy Status:Active Family Members In General Comments:Emotional problems, Heart/Lung problems, HBP, High cholesterol Status:Active Father Comments:Healthy, still chavo ng Status:Active Maternal Grandmother Comments:colon cancer 6 2yo Status:Active Mother Comments:Mild NE, hx peptic ulcers, GERD, CAD still living Status:Active Sister 1 Comments:younger. dx wtih CA D at 55. afib Status:Active Son 1 Comments:hyperlipidemia Status:Active Son 2 Comments:hyperlipidemia Status:Active Unknown Family Member Name Dates Details Brother 1 Comments:NE started 42 yo- d ied of [place] at age 53 Status:Active Brother 2 Comments:SVT, afib Status:Active Daughter 1 Comments:healthy Status:Active Family Members In General Comments:Emotional problems, Heart/Lung problems, HBP, High cholesterol Status:Active Father Comments:Healthy, still chavo ng Status:Active Maternal Grandmother Comments:colon cancer 6 2yo Status:Active Mother Comments:Mild NE, hx peptic ulcers, GERD, CAD still living Status:Active Sister 1 Comments:younger. dx wtih CA D at 55. afib Status:Active Son 1 Comments:hyperlipidemia Status:Active Son 2 Comments:hyperlipidemia Status:Active Unknown Family Member Name Dates Details Brother 1 Comments:NE started 42 yo- d ied of [place] at age 53 Status:Active Brother 2 Comments:SVT, afib Status:Active Daughter 1 Comments:healthy Status:Active Family Members In General Comments:Emotional problems, Heart/Lung problems, HBP, High cholesterol Status:Active Father Comments:Healthy, still chavo ng Status:Active Maternal Grandmother Comments:colon cancer 6 2yo Status:Active Mother Comments:Mild NE, hx peptic ulcers, GERD, CAD still living Status:Active Sister 1 Comments:younger. dx wtih CA D at 55. afib Status:Active Son 1 Comments:hyperlipidemia Status:Active Son 2 Comments:hyperlipidemia Status:Active Unknown Family Member Name Dates Details Brother 1 Comments:NE started 42 yo- d ied of [place] at age 53 Status:Active Brother 2 Comments:SVT Status:Active Daughter 1 Comments:healthy Status:Active Family Members In General Comments:Emotional problems, Heart/Lung problems, HBP, High cholesterol Status:Active Father Comments:Healthy, still chavo ng Status:Active Maternal Grandmother Comments:colon cancer 6 2yo Status:Active Mother Comments:Mild NE, hx peptic ulcers, GERD, CAD still living Status:Active Sister 1 Comments:younger. dx wtih CA D at 55. Status:Active Son 1 Comments:hyperlipidemia Status:Active Son 2 Comments:hyperlipidemia Status:Active Unknown Family Member Name Dates Details Brother 1 Comments:NE started 42 yo- d ied of [place] at age 53 Status:Active Brother 2 Comments:SVT, afib Status:Active Daughter 1 Comments:healthy Status:Active Family Members In General Comments:Emotional problems, Heart/Lung problems, HBP, High cholesterol Status:Active Father Comments:Healthy, still chavo ng Status:Active Maternal Grandmother Comments:colon cancer 6 2yo Status:Active Mother Comments:Mild NE, hx peptic ulcers, GERD, CAD still living Status:Active Sister 1 Comments:younger. dx wtih CA D at 55. afib Status:Active Son 1 Comments:hyperlipidemia Status:Active Son 2 Comments:hyperlipidemia Status:Active Unknown Family Member Name Dates Details Brother 1 Comments:NE started 42 yo- d ied of [place] at age 53 Status:Active Brother 2 Comments:SVT, afib Status:Active Daughter 1 Comments:healthy Status:Active Family Members In General Comments:Emotional problems, Heart/Lung problems, HBP, High cholesterol Status:Active Father Comments:Healthy, still chavo ng Status:Active Maternal Grandmother Comments:colon cancer 6 2yo Status:Active Mother Comments:Mild NE, hx peptic ulcers, GERD, CAD still living Status:Active Sister 1 Comments:younger. dx wtih CA D at 55. afib Status:Active Son 1 Comments:hyperlipidemia Status:Active Son 2 Comments:hyperlipidemia Status:Active Unknown Family Member Name Dates Details Brother 1 Comments:NE started 42 yo- d ied of [place] at age 53 Status:Active Brother 2 Comments:SVT, afib Status:Active Daughter 1 Comments:healthy Status:Active Family Members In General Comments:Emotional problems, Heart/Lung problems, HBP, High cholesterol Status:Active Father Comments:Healthy, still chavo ng Status:Active Maternal Grandmother Comments:colon cancer 6 2yo Status:Active Mother Comments:Mild NE, hx peptic ulcers, GERD, CAD still living Status:Active Sister 1 Comments:younger. dx wtih CA D at 55. afib Status:Active Son 1 Comments:hyperlipidemia Status:Active Son 2 Comments:hyperlipidemia Status:Active Unknown Family Member Name Dates Details Brother 1 Comments:NE started 42 yo- d ied of NE at age 53 Status:Active Brother 2 Comments:SVT, afib Status:Active Daughter 1 Comments:healthy Status:Active Family Members In General Comments:Emotional problems, Heart/Lung problems, HBP, High cholesterol Status:Active Father Comments:Healthy, still chavo ng Status:Active Maternal Grandmother Comments:colon cancer 6 2yo Status:Active Mother Comments:Mild [place], hx peptic ulcers, GERD, CAD still living Status:Active Sister 1 Comments:younger. dx wtih CA D at 55. afib Status:Active Son 1 Comments:hyperlipidemia Status:Active Son 2 Comments:hyperlipidemia Status:Active Unknown Family Member Name Dates Details Brother 1 Comments:NE started 42 yo- d ied of [place] at age 53 Status:Active Brother 2 Comments:SVT, afib Status:Active Daughter 1 Comments:healthy Status:Active Family Members In General Comments:Emotional problems, Heart/Lung problems, HBP, High cholesterol Status:Active Father Comments:Healthy, still chavo ng Status:Active Maternal Grandmother Comments:colon cancer 6 2yo Status:Active Mother Comments:Mild NE, hx peptic ulcers, GERD, CAD still living Status:Active Sister 1 Comments:younger. dx wtih CA D at 55. afib Status:Active Son 1 Comments:hyperlipidemia Status:Active Son 2 Comments:hyperlipidemia Status:Active Unknown Family Member Name Dates Details Brother 1 Comments:NE started 42 yo- d ied of [place] at age 53 Status:Active Brother 2 Comments:SVT, afib Status:Active Daughter 1 Comments:healthy Status:Active Family Members In General Comments:Emotional problems, Heart/Lung problems, HBP, High cholesterol Status:Active Father Comments:Healthy, still chavo ng Status:Active Maternal Grandmother Comments:colon cancer 6 2yo Status:Active Mother Comments:Mild NE, hx peptic ulcers, GERD, CAD still living Status:Active Sister 1 Comments:younger. dx wtih CA D at 55. afib Status:Active Son 1 Comments:hyperlipidemia Status:Active Son 2 Comments:hyperlipidemia Status:Active Unknown Family Member Name Dates Details Brother 1 Comments:NE started 42 yo- d ied of [place] at age 53 Status:Active Brother 2 Comments:SVT, afib Status:Active Daughter 1 Comments:healthy Status:Active Family Members In General Comments:Emotional problems, Heart/Lung problems, HBP, High cholesterol Status:Active Father Comments:Healthy, still chavo ng Status:Active Maternal Grandmother Comments:colon cancer 6 2yo Status:Active Mother Comments:Mild NE, hx peptic ulcers, GERD, CAD still living Status:Active Sister 1 Comments:younger. dx wtih CA D at 55. afib Status:Active Son 1 Comments:hyperlipidemia Status:Active Son 2 Comments:hyperlipidemia Status:Active Unknown Family Member Name Dates Details Brother 1 Comments:NE started 42 yo- d ied of [place] at age 53 Status:Active Brother 2 Comments:SVT, afib Status:Active Daughter 1 Comments:healthy Status:Active Family Members In General Comments:Emotional problems, Heart/Lung problems, HBP, High cholesterol Status:Active Father Comments:Healthy, still chavo ng Status:Active Maternal Grandmother Comments:colon cancer 6 2yo Status:Active Mother Comments:Mild [place], hx peptic ulcers, GERD, CAD still living Status:Active Sister 1 Comments:younger. dx wtih CA D at 55. afib Status:Active Son 1 Comments:hyperlipidemia Status:Active Son 2 Comments:hyperlipidemia Status:Active Unknown Family Member Name Dates Details Brother 1 Comments:NE started 42 yo- d ied of [place] at age 53 Status:Active Brother 2 Comments:SVT, afib Status:Active Daughter 1 Comments:healthy Status:Active Family Members In General Comments:Emotional problems, Heart/Lung problems, HBP, High cholesterol Status:Active Father Comments:Healthy, still chavo ng Status:Active Maternal Grandmother Comments:colon cancer 6 2yo Status:Active Mother Comments:Mild NE, hx peptic ulcers, GERD, CAD still living Status:Active Sister 1 Comments:younger. dx wtih CA D at 55. afib Status:Active Son 1 Comments:hyperlipidemia Status:Active Son 2 Comments:hyperlipidemia Status:Active Unknown Family Member Name Dates Details Brother 1 Comments:NE started 42 yo- d ied of [place] at age 53 Status:Active Brother 2 Comments:SVT, afib Status:Active Daughter 1 Comments:healthy Status:Active Family Members In General Comments:Emotional problems, Heart/Lung problems, HBP, High cholesterol Status:Active Father Comments:Healthy, still chavo ng Status:Active Maternal Grandmother Comments:colon cancer 6 2yo Status:Active Mother Comments:Mild NE, hx peptic ulcers, GERD, CAD still living Status:Active Sister 1 Comments:younger. dx wtih CA D at 55. afib Status:Active Son 1 Comments:hyperlipidemia Status:Active Son 2 Comments:hyperlipidemia Status:Active Unknown Family Member Name Dates Details Brother 1 Comments:NE started 42 yo- d ied of [place] at age 53 Status:Active Brother 2 Comments:SVT, afib Status:Active Daughter 1 Comments:healthy Status:Active Family Members In General Comments:Emotional problems, Heart/Lung problems, HBP, High cholesterol Status:Active Father Comments:Healthy, still chavo ng Status:Active Maternal Grandmother Comments:colon cancer 6 2yo Status:Active Mother Comments:Mild [place], hx peptic ulcers, GERD, CAD still living Status:Active Sister 1 Comments:younger. dx wtih CA D at 55. afib Status:Active Son 1 Comments:hyperlipidemia Status:Active Son 2 Comments:hyperlipidemia Status:Active Instructions Name Dates Details Hypertension : How to access health information online Indication:Hypertension Hypertension : How to access health information online - Detail Indication:Hypertension Hypertension : Patient Instr uctions Indication:Hypertension Current nonsmoker (Renamed f rom Current non-smoker) : How to access health information online Indication:Current nonsmoker (Renamed from Current non-smoker) Current nonsmoker (Renamed f rom Current non-smoker) : How to access health information online - Detail Indication:Current nonsmoker (Renamed from Current non-smoker) Current nonsmoker (Renamed f rom Current non-smoker) : Patient Instructions Indication:Current nonsmoker (Renamed from Current non-smoker) Abnormal gait : How to accNPC III s health information online Indication:Abnormal gait Abnormal gait : How to accNPC III s health information online - Detail Indication:Abnormal gait Abnormal gait : Patient Inst ructions Indication:Abnormal gait Impaired fasting glucose : H ow to access health information online Indication:Impaired fasting glucose Impaired fasting glucose : H ow to access health information online - Detail Indication:Impaired fasting glucose Impaired fasting glucose : P atient Instructions Indication:Impaired fasting glucose Well woman exam : How to acc ess health information online Indication:Well woman exam Well woman exam : How to acc ess health information online - Detail Indication:Well woman exam Well woman exam : Patient In structions Indication:Well woman exam Onychomycosis : Patient Inst ructions Indication:Onychomycosis Name Dates Details Hypertension : How to access health information online Indication:Hypertension Hypertension : How to access health information online - Detail Indication:Hypertension Hypertension : Patient Instr uctions Indication:Hypertension Current nonsmoker (Renamed f rom Current non-smoker) : How to access health information online Indication:Current nonsmoker (Renamed from Current non-smoker) Current nonsmoker (Renamed f rom Current non-smoker) : How to access health information online - Detail Indication:Current nonsmoker (Renamed from Current non-smoker) Current nonsmoker (Renamed f rom Current non-smoker) : Patient Instructions Indication:Current nonsmoker (Renamed from Current non-smoker) Abnormal gait : How to accNPC III s health information online Indication:Abnormal gait Abnormal gait : How to accNPC III s health information online - Detail Indication:Abnormal gait Abnormal gait : Patient Inst ructions Indication:Abnormal gait Impaired fasting glucose : H ow to access health information online Indication:Impaired fasting glucose Impaired fasting glucose : H ow to access health information online - Detail Indication:Impaired fasting glucose Impaired fasting glucose : P atient Instructions Indication:Impaired fasting glucose Well woman exam : How to acc ess health information online Indication:Well woman exam Well woman exam : How to acc ess health information online - Detail Indication:Well woman exam Well woman exam : Patient In structions Indication:Well woman exam Onychomycosis : Patient Inst ructions Indication:Onychomycosis Name Dates Details Hypertension : How to access health information online Indication:Hypertension Hypertension : How to access health information online - Detail Indication:Hypertension Hypertension : Patient Instr uctions Indication:Hypertension Current nonsmoker (Renamed f rom Current non-smoker) : How to access health information online Indication:Current nonsmoker (Renamed from Current non-smoker) Current nonsmoker (Renamed f rom Current non-smoker) : How to access health information online - Detail Indication:Current nonsmoker (Renamed from Current non-smoker) Current nonsmoker (Renamed f rom Current non-smoker) : Patient Instructions Indication:Current nonsmoker (Renamed from Current non-smoker) Abnormal gait : How to acces s health information online Indication:Abnormal gait Abnormal gait : How to acc[facility] III s health information online - Detail Indication:Abnormal gait Abnormal gait : Patient Inst ructions Indication:Abnormal gait Impaired fasting glucose : H ow to access health information online Indication:Impaired fasting glucose Impaired fasting glucose : H ow to access health information online - Detail Indication:Impaired fasting glucose Impaired fasting glucose : P atient Instructions Indication:Impaired fasting glucose Well woman exam : How to acc ess health information online Indication:Well woman exam Well woman exam : How to acc ess health information online - Detail Indication:Well woman exam Well woman exam : Patient In structions Indication:Well woman exam Onychomycosis : Patient Inst ructions Indication:Onychomycosis Name Dates Details Hypertension : How to access health information online Indication:Hypertension Hypertension : How to access health information online - Detail Indication:Hypertension Hypertension : Patient Instr uctions Indication:Hypertension Current nonsmoker (Renamed f rom Current non-smoker) : How to access health information online Indication:Current nonsmoker (Renamed from Current non-smoker) Current nonsmoker (Renamed f rom Current non-smoker) : How to access health information online - Detail Indication:Current nonsmoker (Renamed from Current non-smoker) Current nonsmoker (Renamed f rom Current non-smoker) : Patient Instructions Indication:Current nonsmoker (Renamed from Current non-smoker) Abnormal gait : How to acces s health information online Indication:Abnormal gait Abnormal gait : How to acces s health information online - Detail Indication:Abnormal gait Abnormal gait : Patient Inst ructions Indication:Abnormal gait Impaired fasting glucose : H ow to access health information online Indication:Impaired fasting glucose Impaired fasting glucose : H ow to access health information online - Detail Indication:Impaired fasting glucose Impaired fasting glucose : P atient Instructions Indication:Impaired fasting glucose Well woman exam : How to acc ess health information online Indication:Well woman exam Well woman exam : How to acc ess health information online - Detail Indication:Well woman exam Well woman exam : Patient In structions Indication:Well woman exam Onychomycosis : Patient Inst ructions Indication:Onychomycosis Name Dates Details How to access health informa tion online Indication:Well woman exam Start:14-Apr-2019 Instruction Type:Patient Education How to access health informa tion online - Detail Indication:Well woman exam Start:14-Apr-2019 Instruction Type:Patient Education Patient Instructions Indication:Well woman exam Start:14-Apr-2019 Instruction Type:Provider Instructions for Treatment How to access health informa tion online Indication:Hypertension Start:03-Sep-2018 Instruction Type:Patient Education How to access health informa tion online - Detail Indication:Hypertension Start:03-Sep-2018 Instruction Type:Patient Education Patient Instructions Indication:Hypertension Start:03-Sep-2018 Instruction Type:Provider Instructions for Treatment How to access health informa tion online Indication:Hypertension Start:02-Nov-2017 Instruction Type:Patient Education How to access health informa tion online - Detail Indication:Hypertension Start:02-Nov-2017 Instruction Type:Patient Education Patient Instructions Indication:Hypertension Start:02-Nov-2017 Instruction Type:Provider Instructions for Treatment How to access health informa tion online Indication:Current nonsmoker (Renamed from Current non-smoker) Start:20-Sep-2017 Instruction Type:Patient Education How to access health informa tion online - Detail Indication:Current nonsmoker (Renamed from Current non-smoker) Start:20-Sep-2017 Instruction Type:Patient Education Patient Instructions Indication:Current nonsmoker (Renamed from Current non-smoker) Start:20-Sep-2017 Instruction Type:Provider Instructions for Treatment How to access health informa tion online Indication:Abnormal gait Start:09-Feb-2017 Instruction Type:Patient Education How to access health informa tion online - Detail Indication:Abnormal gait Start:09-Feb-2017 Instruction Type:Patient Education Patient Instructions Indication:Abnormal gait Start:09-Feb-2017 Instruction Type:Provider Instructions for Treatment How to access health informa tion online Indication:Impaired fasting glucose Start:02-Feb-2017 Instruction Type:Patient Education How to access health informa tion online - Detail Indication:Impaired fasting glucose Start:02-Feb-2017 Instruction Type:Patient Education Patient Instructions Indication:Impaired fasting glucose Start:02-Feb-2017 Instruction Type:Provider Instructions for Treatment How to access health informa tion online Indication:Well woman exam Start:24-Jul-2016 Instruction Type:Patient Education How to access health informa tion online - Detail Indication:Well woman exam Start:24-Jul-2016 Instruction Type:Patient Education Patient Instructions Indication:Well woman exam Start:24-Jul-2016 Instruction Type:Provider Instructions for Treatment Patient Instructions Indication:Hypertension Start:10-Aug-2015 Instruction Type:Provider Instructions for Treatment How to access health informa tion online - Detail Indication:Hypertension Start:10-Aug-2015 Instruction Type:Patient Education How to access health informa tion online Indication:Hypertension Start:10-Aug-2015 Instruction Type:Patient Education Patient Instructions Indication:Impaired fasting glucose Start:07-Feb-2013 Instruction Type:Provider Instructions for Treatment Patient Instructions Indication:Onychomycosis Start:11-Jul-2012 Instruction Type:Provider Instructions for Treatment Patient Instructions Indication:Hypertension Start:13-Jun-2012 Instruction Type:Provider Instructions for Treatment Name Dates Details How to access health informa tion online Indication:Well woman exam Start:14-Apr-2019 Instruction Type:Patient Education How to access health informa tion online - Detail Indication:Well woman exam Start:14-Apr-2019 Instruction Type:Patient Education Patient Instructions Indication:Well woman exam Start:14-Apr-2019 Instruction Type:Provider Instructions for Treatment How to access health informa tion online Indication:Hypertension Start:03-Sep-2018 Instruction Type:Patient Education How to access health informa tion online - Detail Indication:Hypertension Start:03-Sep-2018 Instruction Type:Patient Education Patient Instructions Indication:Hypertension Start:03-Sep-2018 Instruction Type:Provider Instructions for Treatment How to access health informa tion online Indication:Hypertension Start:02-Nov-2017 Instruction Type:Patient Education How to access health informa tion online - Detail Indication:Hypertension Start:02-Nov-2017 Instruction Type:Patient Education Patient Instructions Indication:Hypertension Start:02-Nov-2017 Instruction Type:Provider Instructions for Treatment How to access health informa tion online Indication:Current nonsmoker (Renamed from Current non-smoker) Start:20-Sep-2017 Instruction Type:Patient Education How to access health informa tion online - Detail Indication:Current nonsmoker (Renamed from Current non-smoker) Start:20-Sep-2017 Instruction Type:Patient Education Patient Instructions Indication:Current nonsmoker (Renamed from Current non-smoker) Start:20-Sep-2017 Instruction Type:Provider Instructions for Treatment How to access health informa tion online Indication:Abnormal gait Start:09-Feb-2017 Instruction Type:Patient Education How to access health informa tion online - Detail Indication:Abnormal gait Start:09-Feb-2017 Instruction Type:Patient Education Patient Instructions Indication:Abnormal gait Start:09-Feb-2017 Instruction Type:Provider Instructions for Treatment How to access health informa tion online Indication:Impaired fasting glucose Start:02-Feb-2017 Instruction Type:Patient Education How to access health informa tion online - Detail Indication:Impaired fasting glucose Start:02-Feb-2017 Instruction Type:Patient Education Patient Instructions Indication:Impaired fasting glucose Start:02-Feb-2017 Instruction Type:Provider Instructions for Treatment How to access health informa tion online Indication:Well woman exam Start:24-Jul-2016 Instruction Type:Patient Education How to access health informa tion online - Detail Indication:Well woman exam Start:24-Jul-2016 Instruction Type:Patient Education Patient Instructions Indication:Well woman exam Start:24-Jul-2016 Instruction Type:Provider Instructions for Treatment Patient Instructions Indication:Hypertension Start:10-Aug-2015 Instruction Type:Provider Instructions for Treatment How to access health informa tion online - Detail Indication:Hypertension Start:10-Aug-2015 Instruction Type:Patient Education How to access health informa tion online Indication:Hypertension Start:10-Aug-2015 Instruction Type:Patient Education Patient Instructions Indication:Impaired fasting glucose Start:07-Feb-2013 Instruction Type:Provider Instructions for Treatment Patient Instructions Indication:Onychomycosis Start:11-Jul-2012 Instruction Type:Provider Instructions for Treatment Patient Instructions Indication:Hypertension Start:13-Jun-2012 Instruction Type:Provider Instructions for Treatment Name Dates Details How to access health informa tion online Indication:Hypertension Start:16-Oct-2019 Instruction Type:Patient Education How to access health informa tion online - Detail Indication:Hypertension Start:16-Oct-2019 Instruction Type:Patient Education Patient Instructions Indication:Hypertension Start:16-Oct-2019 Instruction Type:Provider Instructions for Treatment How to access health informa tion online Indication:Well woman exam Start:14-Apr-2019 Instruction Type:Patient Education How to access health informa tion online - Detail Indication:Well woman exam Start:14-Apr-2019 Instruction Type:Patient Education Patient Instructions Indication:Well woman exam Start:14-Apr-2019 Instruction Type:Provider Instructions for Treatment How to access health informa tion online Indication:Hypertension Start:03-Sep-2018 Instruction Type:Patient Education How to access health informa tion online - Detail Indication:Hypertension Start:03-Sep-2018 Instruction Type:Patient Education Patient Instructions Indication:Hypertension Start:03-Sep-2018 Instruction Type:Provider Instructions for Treatment How to access health informa tion online Indication:Hypertension Start:02-Nov-2017 Instruction Type:Patient Education How to access health informa tion online - Detail Indication:Hypertension Start:02-Nov-2017 Instruction Type:Patient Education Patient Instructions Indication:Hypertension Start:02-Nov-2017 Instruction Type:Provider Instructions for Treatment How to access health informa tion online Indication:Current nonsmoker (Renamed from Current non-smoker) Start:20-Sep-2017 Instruction Type:Patient Education How to access health informa tion online - Detail Indication:Current nonsmoker (Renamed from Current non-smoker) Start:20-Sep-2017 Instruction Type:Patient Education Patient Instructions Indication:Current nonsmoker (Renamed from Current non-smoker) Start:20-Sep-2017 Instruction Type:Provider Instructions for Treatment How to access health informa tion online Indication:Abnormal gait Start:09-Feb-2017 Instruction Type:Patient Education How to access health informa tion online - Detail Indication:Abnormal gait Start:09-Feb-2017 Instruction Type:Patient Education Patient Instructions Indication:Abnormal gait Start:09-Feb-2017 Instruction Type:Provider Instructions for Treatment How to access health informa tion online Indication:Impaired fasting glucose Start:02-Feb-2017 Instruction Type:Patient Education How to access health informa tion online - Detail Indication:Impaired fasting glucose Start:02-Feb-2017 Instruction Type:Patient Education Patient Instructions Indication:Impaired fasting glucose Start:02-Feb-2017 Instruction Type:Provider Instructions for Treatment How to access health informa tion online Indication:Well woman exam Start:24-Jul-2016 Instruction Type:Patient Education How to access health informa tion online - Detail Indication:Well woman exam Start:24-Jul-2016 Instruction Type:Patient Education Patient Instructions Indication:Well woman exam Start:24-Jul-2016 Instruction Type:Provider Instructions for Treatment Patient Instructions Indication:Hypertension Start:10-Aug-2015 Instruction Type:Provider Instructions for Treatment How to access health informa tion online - Detail Indication:Hypertension Start:10-Aug-2015 Instruction Type:Patient Education How to access health informa tion online Indication:Hypertension Start:10-Aug-2015 Instruction Type:Patient Education Patient Instructions Indication:Impaired fasting glucose Start:07-Feb-2013 Instruction Type:Provider Instructions for Treatment Patient Instructions Indication:Onychomycosis Start:11-Jul-2012 Instruction Type:Provider Instructions for Treatment Patient Instructions Indication:Hypertension Start:13-Jun-2012 Instruction Type:Provider Instructions for Treatment Name Dates Details How to access health informa tion online Indication:Hypertension Start:16-Oct-2019 Instruction Type:Patient Education How to access health informa tion online - Detail Indication:Hypertension Start:16-Oct-2019 Instruction Type:Patient Education Patient Instructions Indication:Hypertension Start:16-Oct-2019 Instruction Type:Provider Instructions for Treatment How to access health informa tion online Indication:Well woman exam Start:14-Apr-2019 Instruction Type:Patient Education How to access health informa tion online - Detail Indication:Well woman exam Start:14-Apr-2019 Instruction Type:Patient Education Patient Instructions Indication:Well woman exam Start:14-Apr-2019 Instruction Type:Provider Instructions for Treatment How to access health informa tion online Indication:Hypertension Start:03-Sep-2018 Instruction Type:Patient Education How to access health informa tion online - Detail Indication:Hypertension Start:03-Sep-2018 Instruction Type:Patient Education Patient Instructions Indication:Hypertension Start:03-Sep-2018 Instruction Type:Provider Instructions for Treatment How to access health informa tion online Indication:Hypertension Start:02-Nov-2017 Instruction Type:Patient Education How to access health informa tion online - Detail Indication:Hypertension Start:02-Nov-2017 Instruction Type:Patient Education Patient Instructions Indication:Hypertension Start:02-Nov-2017 Instruction Type:Provider Instructions for Treatment How to access health informa tion online Indication:Current nonsmoker (Renamed from Current non-smoker) Start:20-Sep-2017 Instruction Type:Patient Education How to access health informa tion online - Detail Indication:Current nonsmoker (Renamed from Current non-smoker) Start:20-Sep-2017 Instruction Type:Patient Education Patient Instructions Indication:Current nonsmoker (Renamed from Current non-smoker) Start:20-Sep-2017 Instruction Type:Provider Instructions for Treatment How to access health informa tion online Indication:Abnormal gait Start:09-Feb-2017 Instruction Type:Patient Education How to access health informa tion online - Detail Indication:Abnormal gait Start:09-Feb-2017 Instruction Type:Patient Education Patient Instructions Indication:Abnormal gait Start:09-Feb-2017 Instruction Type:Provider Instructions for Treatment How to access health informa tion online Indication:Impaired fasting glucose Start:02-Feb-2017 Instruction Type:Patient Education How to access health informa tion online - Detail Indication:Impaired fasting glucose Start:02-Feb-2017 Instruction Type:Patient Education Patient Instructions Indication:Impaired fasting glucose Start:02-Feb-2017 Instruction Type:Provider Instructions for Treatment How to access health informa tion online Indication:Well woman exam Start:24-Jul-2016 Instruction Type:Patient Education How to access health informa tion online - Detail Indication:Well woman exam Start:24-Jul-2016 Instruction Type:Patient Education Patient Instructions Indication:Well woman exam Start:24-Jul-2016 Instruction Type:Provider Instructions for Treatment Patient Instructions Indication:Hypertension Start:10-Aug-2015 Instruction Type:Provider Instructions for Treatment How to access health informa tion online - Detail Indication:Hypertension Start:10-Aug-2015 Instruction Type:Patient Education How to access health informa tion online Indication:Hypertension Start:10-Aug-2015 Instruction Type:Patient Education Patient Instructions Indication:Impaired fasting glucose Start:07-Feb-2013 Instruction Type:Provider Instructions for Treatment Patient Instructions Indication:Onychomycosis Start:11-Jul-2012 Instruction Type:Provider Instructions for Treatment Patient Instructions Indication:Hypertension Start:13-Jun-2012 Instruction Type:Provider Instructions for Treatment Name Dates Details How to access health informa tion online Indication:Hypertension Start:03-Sep-2018 Instruction Type:Patient Education How to access health informa tion online - Detail Indication:Hypertension Start:03-Sep-2018 Instruction Type:Patient Education Patient Instructions Indication:Hypertension Start:03-Sep-2018 Instruction Type:Provider Instructions for Treatment How to access health informa tion online Indication:Hypertension Start:02-Nov-2017 Instruction Type:Patient Education How to access health informa tion online - Detail Indication:Hypertension Start:02-Nov-2017 Instruction Type:Patient Education Patient Instructions Indication:Hypertension Start:02-Nov-2017 Instruction Type:Provider Instructions for Treatment How to access health informa tion online Indication:Current nonsmoker (Renamed from Current non-smoker) Start:20-Sep-2017 Instruction Type:Patient Education How to access health informa tion online - Detail Indication:Current nonsmoker (Renamed from Current non-smoker) Start:20-Sep-2017 Instruction Type:Patient Education Patient Instructions Indication:Current nonsmoker (Renamed from Current non-smoker) Start:20-Sep-2017 Instruction Type:Provider Instructions for Treatment How to access health informa tion online Indication:Abnormal gait Start:09-Feb-2017 Instruction Type:Patient Education How to access health informa tion online - Detail Indication:Abnormal gait Start:09-Feb-2017 Instruction Type:Patient Education Patient Instructions Indication:Abnormal gait Start:09-Feb-2017 Instruction Type:Provider Instructions for Treatment How to access health informa tion online Indication:Impaired fasting glucose Start:02-Feb-2017 Instruction Type:Patient Education How to access health informa tion online - Detail Indication:Impaired fasting glucose Start:02-Feb-2017 Instruction Type:Patient Education Patient Instructions Indication:Impaired fasting glucose Start:02-Feb-2017 Instruction Type:Provider Instructions for Treatment How to access health informa tion online Indication:Well woman exam Start:24-Jul-2016 Instruction Type:Patient Education How to access health informa tion online - Detail Indication:Well woman exam Start:24-Jul-2016 Instruction Type:Patient Education Patient Instructions Indication:Well woman exam Start:24-Jul-2016 Instruction Type:Provider Instructions for Treatment Patient Instructions Indication:Hypertension Start:10-Aug-2015 Instruction Type:Provider Instructions for Treatment How to access health informa tion online - Detail Indication:Hypertension Start:10-Aug-2015 Instruction Type:Patient Education How to access health informa tion online Indication:Hypertension Start:10-Aug-2015 Instruction Type:Patient Education Patient Instructions Indication:Impaired fasting glucose Start:07-Feb-2013 Instruction Type:Provider Instructions for Treatment Patient Instructions Indication:Onychomycosis Start:11-Jul-2012 Instruction Type:Provider Instructions for Treatment Patient Instructions Indication:Hypertension Start:13-Jun-2012 Instruction Type:Provider Instructions for Treatment Name Dates Details Patient Instructions Indication:BMI 45.0-49.9, adult Start:17-Sep-2020 Instruction Type:Provider Instructions for Treatment How to Access Health Informa tion Online using Patient Portal and [employer] Apps Indication:BMI 45.0-49.9, adult Start:17-Sep-2020 Instruction Type:Patient Education How to access health informa tion online Indication:Hypertension Start:16-Oct-2019 Instruction Type:Patient Education How to access health informa tion online - Detail Indication:Hypertension Start:16-Oct-2019 Instruction Type:Patient Education Patient Instructions Indication:Hypertension Start:16-Oct-2019 Instruction Type:Provider Instructions for Treatment How to access health informa tion online Indication:Well woman exam Start:14-Apr-2019 Instruction Type:Patient Education How to access health informa tion online - Detail Indication:Well woman exam Start:14-Apr-2019 Instruction Type:Patient Education Patient Instructions Indication:Well woman exam Start:14-Apr-2019 Instruction Type:Provider Instructions for Treatment How to access health informa tion online Indication:Hypertension Start:03-Sep-2018 Instruction Type:Patient Education How to access health informa tion online - Detail Indication:Hypertension Start:03-Sep-2018 Instruction Type:Patient Education Patient Instructions Indication:Hypertension Start:03-Sep-2018 Instruction Type:Provider Instructions for Treatment How to access health informa tion online Indication:Hypertension Start:02-Nov-2017 Instruction Type:Patient Education How to access health informa tion online - Detail Indication:Hypertension Start:02-Nov-2017 Instruction Type:Patient Education Patient Instructions Indication:Hypertension Start:02-Nov-2017 Instruction Type:Provider Instructions for Treatment How to access health informa tion online Indication:Current nonsmoker (Renamed from Current non-smoker) Start:20-Sep-2017 Instruction Type:Patient Education How to access health informa tion online - Detail Indication:Current nonsmoker (Renamed from Current non-smoker) Start:20-Sep-2017 Instruction Type:Patient Education Patient Instructions Indication:Current nonsmoker (Renamed from Current non-smoker) Start:20-Sep-2017 Instruction Type:Provider Instructions for Treatment How to access health informa tion online Indication:Abnormal gait Start:09-Feb-2017 Instruction Type:Patient Education How to access health informa tion online - Detail Indication:Abnormal gait Start:09-Feb-2017 Instruction Type:Patient Education Patient Instructions Indication:Abnormal gait Start:09-Feb-2017 Instruction Type:Provider Instructions for Treatment How to access health informa tion online Indication:Impaired fasting glucose Start:02-Feb-2017 Instruction Type:Patient Education How to access health informa tion online - Detail Indication:Impaired fasting glucose Start:02-Feb-2017 Instruction Type:Patient Education Patient Instructions Indication:Impaired fasting glucose Start:02-Feb-2017 Instruction Type:Provider Instructions for Treatment How to access health informa tion online Indication:Well woman exam Start:24-Jul-2016 Instruction Type:Patient Education How to access health informa tion online - Detail Indication:Well woman exam Start:24-Jul-2016 Instruction Type:Patient Education Patient Instructions Indication:Well woman exam Start:24-Jul-2016 Instruction Type:Provider Instructions for Treatment Patient Instructions Indication:Hypertension Start:10-Aug-2015 Instruction Type:Provider Instructions for Treatment How to access health informa tion online - Detail Indication:Hypertension Start:10-Aug-2015 Instruction Type:Patient Education How to access health informa tion online Indication:Hypertension Start:10-Aug-2015 Instruction Type:Patient Education Patient Instructions Indication:Impaired fasting glucose Start:07-Feb-2013 Instruction Type:Provider Instructions for Treatment Patient Instructions Indication:Onychomycosis Start:11-Jul-2012 Instruction Type:Provider Instructions for Treatment Patient Instructions Indication:Hypertension Start:13-Jun-2012 Instruction Type:Provider Instructions for Treatment Name Dates Details Patient Instructions Indication:BMI 45.0-49.9, adult Start:17-Sep-2020 Instruction Type:Provider Instructions for Treatment How to Access Health Informa tion Online using Patient Portal and [employer] Apps Indication:BMI 45.0-49.9, adult Start:17-Sep-2020 Instruction Type:Patient Education How to access health informa tion online Indication:Hypertension Start:16-Oct-2019 Instruction Type:Patient Education How to access health informa tion online - Detail Indication:Hypertension Start:16-Oct-2019 Instruction Type:Patient Education Patient Instructions Indication:Hypertension Start:16-Oct-2019 Instruction Type:Provider Instructions for Treatment How to access health informa tion online Indication:Well woman exam Start:14-Apr-2019 Instruction Type:Patient Education How to access health informa tion online - Detail Indication:Well woman exam Start:14-Apr-2019 Instruction Type:Patient Education Patient Instructions Indication:Well woman exam Start:14-Apr-2019 Instruction Type:Provider Instructions for Treatment How to access health informa tion online Indication:Hypertension Start:03-Sep-2018 Instruction Type:Patient Education How to access health informa tion online - Detail Indication:Hypertension Start:03-Sep-2018 Instruction Type:Patient Education Patient Instructions Indication:Hypertension Start:03-Sep-2018 Instruction Type:Provider Instructions for Treatment How to access health informa tion online Indication:Hypertension Start:02-Nov-2017 Instruction Type:Patient Education How to access health informa tion online - Detail Indication:Hypertension Start:02-Nov-2017 Instruction Type:Patient Education Patient Instructions Indication:Hypertension Start:02-Nov-2017 Instruction Type:Provider Instructions for Treatment How to access health informa tion online Indication:Current nonsmoker (Renamed from Current non-smoker) Start:20-Sep-2017 Instruction Type:Patient Education How to access health informa tion online - Detail Indication:Current nonsmoker (Renamed from Current non-smoker) Start:20-Sep-2017 Instruction Type:Patient Education Patient Instructions Indication:Current nonsmoker (Renamed from Current non-smoker) Start:20-Sep-2017 Instruction Type:Provider Instructions for Treatment How to access health informa tion online Indication:Abnormal gait Start:09-Feb-2017 Instruction Type:Patient Education How to access health informa tion online - Detail Indication:Abnormal gait Start:09-Feb-2017 Instruction Type:Patient Education Patient Instructions Indication:Abnormal gait Start:09-Feb-2017 Instruction Type:Provider Instructions for Treatment How to access health informa tion online Indication:Impaired fasting glucose Start:02-Feb-2017 Instruction Type:Patient Education How to access health informa tion online - Detail Indication:Impaired fasting glucose Start:02-Feb-2017 Instruction Type:Patient Education Patient Instructions Indication:Impaired fasting glucose Start:02-Feb-2017 Instruction Type:Provider Instructions for Treatment How to access health informa tion online Indication:Well woman exam Start:24-Jul-2016 Instruction Type:Patient Education How to access health informa tion online - Detail Indication:Well woman exam Start:24-Jul-2016 Instruction Type:Patient Education Patient Instructions Indication:Well woman exam Start:24-Jul-2016 Instruction Type:Provider Instructions for Treatment Patient Instructions Indication:Hypertension Start:10-Aug-2015 Instruction Type:Provider Instructions for Treatment How to access health informa tion online - Detail Indication:Hypertension Start:10-Aug-2015 Instruction Type:Patient Education How to access health informa tion online Indication:Hypertension Start:10-Aug-2015 Instruction Type:Patient Education Patient Instructions Indication:Impaired fasting glucose Start:07-Feb-2013 Instruction Type:Provider Instructions for Treatment Patient Instructions Indication:Onychomycosis Start:11-Jul-2012 Instruction Type:Provider Instructions for Treatment Patient Instructions Indication:Hypertension Start:13-Jun-2012 Instruction Type:Provider Instructions for Treatment Advance Directives No Advanced Directives Records Found Name Dates Details Immunization Registry [place] - Effective on 10/08/2020. Expiration date unspecified Effective:08-Oct-2020 Name Dates Details Immunization Registry [place] - Effective on 10/08/2020. Expiration date unspecified Effective:08-Oct-2020 Name Dates Details Immunization Registry [place] - Effective on 10/08/2020. Expiration date unspecified Effective:08-Oct-2020 Name Dates Details Immunization Registry [place] - Effective on 10/08/2020. Expiration date unspecified Effective:08-Oct-2020 Name Dates Details Immunization Registry [place] - Effective on 10/08/2020. Expiration date unspecified Effective:08-Oct-2020 Name Dates Details Immunization Registry [place] - Effective on 10/08/2020. Expiration date unspecified Effective:08-Oct-2020 Name Dates Details Immunization Registry [place] - Effective on 10/08/2020. Expiration date unspecified Effective:08-Oct-2020 Name Dates Details Immunization Registry [place] - Effective on 10/08/2020. Expiration date unspecified Effective:08-Oct-2020 Name Dates Details Immunization Registry [place] - Effective on 10/08/2020. Expiration date unspecified Effective:08-Oct-2020 Name Dates Details Immunization Registry [place] - Effective on 10/08/2020. Expiration date unspecified Effective:08-Oct-2020 Name Dates Details Immunization Registry [place] - Effective on 10/08/2020. Expiration date unspecified Effective:08-Oct-2020 Summary Purpose Reason for Referral Specialty Diagnoses / Procedures Referred By Contac t Referred To Contact Diagnoses Thickened endometrium Procedures CONSULT TO MINIMALLY INVASIVE GYNECOLOGIC SURGERY OFFICE/OUTPATIENT NEW HIGH MDM 60 MINUTES Hunter Her MD [address] [place] [address] Referral ID Status Reason Start Date Expiration Date Visits Requested Visits Authorized [id number] Authorized PCP Requested Referral Auto-Generate d Referral 05/21/2024 05/21/2025 1 1 Chief Complaint and Reason for Visit Chief Complaint Admit Date SCREENING April 20, 2025 1: 39pm Additional Source Comments <item><item><item> Privacy Markings (unrecogniz ed section and content) Section Author: Shaila Villanueva PROHIBITION ON REDISCLOSURE OF CONFIDENTIAL INFORMATION This notice accompanies a disclosure of information concerning a client made to you with the consent of such client. Section Author: Shaila Villanueva PROHIBITION ON REDISCLOSURE OF CONFIDENTIAL INFORMATION This notice accompanies a disclosure of information concerning a client made to you with the consent of such client. Section Author: Shaila Villanueva PROHIBITION ON REDISCLOSURE OF CONFIDENTIAL INFORMATION This notice accompanies a disclosure of information concerning a client made to you with the consent of such client. INFORMATION SOURCE (unrecogn ized section and content) DATE CREATED AUTHOR 04/08/2022 [facility] DATE CREATED AUTHOR AUTHOR'S ORGANIZ ATION 04/08/2022 [facility] [place] DATE CREATED AUTHOR AUTHOR'S ORGANIZ ATION 09/04/2022 [facility] DATE CREATED AUTHOR AUTHOR'S ORGANIZ ATION 07/20/2024 [facility] DATE CREATED AUTHOR AUTHOR'S ORGANIZ ATION 07/22/2024 [facility] DATE CREATED AUTHOR AUTHOR'S ORGANIZ ATION 03/07/2025 [facility] DATE CREATED AUTHOR AUTHOR'S ORGANIZ ATION 05/21/2025 [facility] Source Comments (unrecognize d section and content) In the event this informatio n is protected by the Federal Confidentiality of Alcohol and Drug Abuse Patient Records regulations: The Federal rules restrict any use of the information to criminally investigate or prosecute any alcohol or drug abuse patient.[facility] the event this information is protected by the Federal Confidentiality of Alcohol and Drug Abuse Patient Records regulations: The Federal rules restrict any use of the information to criminally investigate or prosecute any alcohol or drug abuse patient.[facility] Center[facility] the event this information is protected by the Federal Confidentiality of Alcohol and Drug Abuse Patient Records regulations: The Federal rules restrict any use of the information to criminally investigate or prosecute any alcohol or drug abuse patient.[facility] Center[facility] the event this information is protected by the Federal Confidentiality of Alcohol and Drug Abuse Patient Records regulations: The Federal rules restrict any use of the information to criminally investigate or prosecute any alcohol or drug abuse patient.[facility] CenterIn the event this information is protected by the Federal Confidentiality of Alcohol and Drug Abuse Patient Records regulations: The Federal rules restrict any use of the information to criminally investigate or prosecute any alcohol or drug abuse patient.[facility] CenterIn the event this information is protected by the Federal Confidentiality of Alcohol and Drug Abuse Patient Records regulations: The Federal rules restrict any use of the information to criminally investigate or prosecute any alcohol or drug abuse patient.[facility] CenterIn the event this information is protected by the Federal Confidentiality of Alcohol and Drug Abuse Patient Records regulations: The Federal rules restrict any use of the information to criminally investigate or prosecute any alcohol or drug abuse patient.[facility] the event this information is protected by the Federal Confidentiality of Alcohol and Drug Abuse Patient Records regulations: The Federal rules restrict any use of the information to criminally investigate or prosecute any alcohol or drug abuse patient.[facility] CenterIn the event this information is protected by the Federal Confidentiality of Alcohol and Drug Abuse Patient Records regulations: The Federal rules restrict any use of the information to criminally investigate or prosecute any alcohol or drug abuse patient.[facility] Center[facility] the event this information is protected by the Federal Confidentiality of Alcohol and Drug Abuse Patient Records regulations: The Federal rules restrict any use of the information to criminally investigate or prosecute any alcohol or drug abuse patient.[facility] Center[facility] the event this information is protected by the Federal Confidentiality of Alcohol and Drug Abuse Patient Records regulations: The Federal rules restrict any use of the information to criminally investigate or prosecute any alcohol or drug abuse patient.[facility] CenterIn the event this information is protected by the Federal Confidentiality of Alcohol and Drug Abuse Patient Records regulations: The Federal rules restrict any use of the information to criminally investigate or prosecute any alcohol or drug abuse patient.[facility] CenterIn the event this information is protected by the Federal Confidentiality of Alcohol and Drug Abuse Patient Records regulations: The Federal rules restrict any use of the information to criminally investigate or prosecute any alcohol or drug abuse patient.[facility] CenterIn the event this information is protected by the Federal Confidentiality of Alcohol and Drug Abuse Patient Records regulations: The Federal rules restrict any use of the information to criminally investigate or prosecute any alcohol or drug abuse patient.[facility] CenterIn the event this information is protected by the Federal Confidentiality of Alcohol and Drug Abuse Patient Records regulations: The Federal rules restrict any use of the information to criminally investigate or prosecute any alcohol or drug abuse patient.[facility] CenterIn the event this information is protected by the Federal Confidentiality of Alcohol and Drug Abuse Patient Records regulations: The Federal rules restrict any use of the information to criminally investigate or prosecute any alcohol or drug abuse patient.[facility] CenterIn the event this information is protected by the Federal Confidentiality of Alcohol and Drug Abuse Patient Records regulations: The Federal rules restrict any use of the information to criminally investigate or prosecute any alcohol or drug abuse patient.[facility] CenterIn the event this information is protected by the Federal Confidentiality of Alcohol and Drug Abuse Patient Records regulations: The Federal rules restrict any use of the information to criminally investigate or prosecute any alcohol or drug abuse patient.[facility] CenterIn the event this information is protected by the Federal Confidentiality of Alcohol and Drug Abuse Patient Records regulations: The Federal rules restrict any use of the information to criminally investigate or prosecute any alcohol or drug abuse patient.[facility] CenterIn the event this information is protected by the Federal Confidentiality of Alcohol and Drug Abuse Patient Records regulations: The Federal rules restrict any use of the information to criminally investigate or prosecute any alcohol or drug abuse patient.[facility] Reason for Visit (unrecogniz ed section and content) Reason Comments Endometrial Biopsy Reason Comments Received Outside Medical Records Reason Comments Results Reason Comments New Patient Specialty Diagnoses / Procedures Referred By Contac t Referred To Contact Diagnoses Thickened endometrium Procedures CONSULT TO MINIMALLY INVASIVE GYNECOLOGIC SURGERY OFFICE/OUTPATIENT NEW HIGH MDM 60 MINUTES Hunter Her MD [address] [place] [address] Referral ID Status Reason Start Date Expiration Date V isits Requested Visits Authorized [id number] Closed PCP Requested Referral Auto-Generated Referral 05/21/2024 05/21/2025 1 1 Reason Comments Consult Specialty Diagnoses / Procedures Referred By Contac t Referred To Contact Diagnoses Endometrial adenocarcinoma (HCC) Procedures CONSULT TO GYNECOLOGIC/ONCOLOGY OFFICE/OUTPATIENT NEW HIGH MDM 60 MINUTES Arleth Lau, [employer] WORK[employer] MANAGER [address] [place] [address] Referral ID Status Reason Start Date Expiration Date V isits Requested Visits Authorized [id number] Closed PCP Requested Referral Auto-Generated Referral 06/30/2024 06/30/2025 1 1 Reason Comments Research IRB#: [id number] ECHO C linical Trial: Screening/ Enrollment Reason Onset Date Comments Pre-Op Teaching 07/15/2024 Reason Comments Anesthesia Consult Reason Comments Established Patient Reason Comments Results Reason Comments Schedule Surgery Appointment Confirmation Reason Comments Post Op Reason Comments Follow Up Care Teams (unrecognized sec tion and content) Die Welder Relationship Specialty Start Date End Date Adolfo Osborn MD [address] [facility] [address] [place] [address] PCP - General Internal Medicine 07/17/24 Die Welder Relationship Specialty Start Date End Date Adolfo Osborn MD [facility] [address] [place] [address] PCP - General Internal Medicine 07/17/24 Die Welder Relationship Specialty Start Date End Date Adolfo Osborn MD [address] [facility] [address] [place] [address] PCP - General Internal Medicine 07/17/24 Die Welder Relationship Specialty Start Date End Date Adolfo Osborn MD [address] [facility] [address] [place] [address] PCP - General Internal Medicine 07/17/24 Die Welder Relationship Specialty Start Date End Date Adolfo Osborn MD [address] [place] [address] [address] [place] [address] PCP - General Internal Medicine 07/17/24 Die Welder Relationship Specialty Start Date End Date Adolfo Osborn MD [facility] [address] [place] [address] PCP - General Internal Medicine 07/17/24 Team Status: Active Member Role/Relationship Status Dates Dr. Adolfo Osborn MD Primary Care Provider Active Team Status: Inactive Member Role/Relationship Status Dates Dr. Adolfo Osborn MD Primary Care Provider Active Start: April 20, 2025 End: April 20, 2025 Dr. Adolfo Osborn MD Attending Provider Active Start: April 20, 2025 End: April 20, 2025 Dr. Adolfo Osborn MD Referring Provider Active Start: April 20, 2025 End: April 20, 2025 Goals (unrecognized section and content) Goals may be documented in a n alternate section FOR RECORDS PERTAINING TO PATIENTS WHO ARE OR HAVE BEEN ENROLLED IN A CHEMICAL DEPENDENCY/SUBSTANCEABUSE PROGRAM, SOME INFORMATION MAY BE OMITTED. This clinical summary was aggregated from multiple sources. Caution should be exercised in using it in the provision of clinical care. This summary normalizes information from multiple sources, and as a consequence, information in this document may materially change the coding, format and clinical context of patient data. In addition, data may be omitted in some cases. CLINICAL DECISIONS SHOULD BE BASED ON THE PRIMARY CLINICAL RECORDS. [facility]. provides no warranty or guarantee of the accuracy or completeness of information in this document.
== END | disposition home or self-care (01) ==
LOC: CT 17:15
PROVIDERS: PCP Internal Medicine; Referring Provider Internal Medicine; Visit Provider Internal Medicine
DX: R79.89 Other specified abnormal findings of blood chemistry (principal)
CPT/HCPCS: 71275; Q9967; A4216

== ENCOUNTER → 2025-07-09 | Outpatient (CLI) | payer MEDICARE, OTHER, SELFPAY ==
--- OUTSIDE RECORDS SUMMARY | 2025-07-09 06:55 | XMS RPT_ITS | CCD ---
Author Organization [facility] CliniSymt Care Team Providers Care Materials Coordinator Name Role Phone Adolfo Osborn Unavailable Tim Rodriguez Unavailable Hannah Ewing Unavailable ARIEL Bradshaw Unavailable Unavailable Pratima Redmond Unavailable Unavailable Unavailable Unavailable Adolfo Osborn Unavailable Tim Rodriguez Unavailable Hannah Ewing Unavailable ARIEL Bradshaw Unavailable Unavailable Pratima Redmond Unavailable Unavailable Unavailable Unavailable Tim Rodriguez Unavailable ARIEL Bradshaw Unavailable Unavailable Wanda Puente Unavailable Unavailable Adolfo Osborn Unavailable ManMendy valerio Unavailable Unavailable Manny Wing Unavailable Unavailabl Adolfo Smiley MD Unavailable Dr. Tim Rodriguez Unavailable Hannah Ewing Unavailable Jennifer , Dr. Dumont Unavailable ARIEL Bradshaw LPN Unavailable Unavailable Pratima Redmond Unavailable Unavailable Unavailable Unavailable Unavailable Unavailable Dayanna Menchaca LPN Unavailable Unavailable Adolfo Osborn Unavailable Adolfo Osborn MD Unavailable Unavailable Unavailable QamarFacundon Unavailable Unavailable Unavailable Unavailable [facility] Unav ailable Kwame BARBA Wanda Unavailable Unavailable Adolfo Osborn MD Attending Unavailable Nitin ORTA, Adolfo Thomas Referring Unavailable Adolfo Osborn MD Consulting Unavailable Evon MURDOCK, Elysia Unavailable Unavailable Unavailable Primary Care Provider Unavailbijan Osborn MD, Adolfo Thomas Primary Care Provider BONEREN, ADOLFO M Primary Care Unavailable KUZNICKI, SERA WORTHINGTON Referring [...] BRAZOFSKYARLETH Referring Unavailable HRNCHAR, DEJA Attending Unavailable BONEREN, ADOLFO M Primary Care Unavailable HRNCHAR, DEJA Attending Unavailable BONEIANI, ADOLFO M Primary Care Unavailable KUZNICKI, SERA WORTHINGTON Attending Unavailab le BONEZZI, ADOLFO M Primary Care Unavailable HRNCHAR, DEJA Attending Unavailable BONEIANI, ADOLFO M Primary Care Unavailable Nitin ORTA, Dr. Parish Primary Care Provider [phone] Dr. Adolfo Osborn MD Attending Provider [phone] Dr. Adolfo Osborn MD Referring Provider [phone] Dr. Adolfo Osborn MD Primary Care Physician [phone] Dr. Adolfo Osborn MD Attending Physician Dr. Deb Jacques MD Attending Physician [phone] Dr. Alex Finley MD Attending Physician [phone] Adolfo Osborn Primary Care Unavailable Alex Finley Attending Unavailable Adolfo Osborn Referring Unavailable Nitin, Adolfo Primary Care Unavailable Alex Finley Attending Unavailable Alex Finley Referring Unavailable Bonezzi, Adolfo Primary Care Unavailable Bonezzi, Adolfo Attending Unavailable Bonezzi, Adolfo Referring Unavailable Bonezzi, Adolfo Attending Unavailable Bonezzi, Adolfo Referring Unavailable Bonezzi, Adolfo Primary Care Unavailable Bonezzi, Adolfo Primary Care Unavailable Bonezzi, Adolfo Attending Unavailable Bonezzi, Adolfo Referring Unavailable Bonezzi, Adolfo Primary Care Unavailable Sawyer, Deb Attending Unavailable [...] (20 sources) Dihydropyridine Calcium Channel Marty Start: 05-27-2025 take 1 tablet by mouth once daily Start: 03-31-2024 take 1 tablet by lefty th once daily amLODIPine (NORVASC) 10 mg tablet Take 10 mg by mouth once daily. 03/31/2024 Active Start: 03-09-2023 take 1 tablet by lefty th once daily Norvasc 10 mg oral tablet 1 Tablet QD for 90 days Quantity: 90 {Tablet} Refills: 3 Ordered: 09-Mar-2023 Nitin ORTA, Adolfo Montilla MD Start : 09-Mar-2023 Active Comments: Mail order. Start: 04-14-2022 take 1 tablet by lefty th once daily Norvasc 10 mg oral tablet 1 Tablet QD for 0 days Quantity: 90 {Tablet} Refills: 3 Ordered: 06-Mar-2023 Nitin OTRA, Adolfo Montilla MD Start : 06-Mar-2023 Active Comments: Mail order. Start: 09-26-2021 take 1 tablet by lefty th once daily Norvasc 10 MG Oral Tablet 1 Tablet QD for 0 days Quantity: 90 {Tablet} Refills: 3 Ordered: 26-Sep-2021 Nitin ORTA, Adolfo Montilla MD Start : 26-Sep-2021 Active Start: 12-08-2020 take 1 tablet by lefty th once daily Norvasc 10 MG Oral Tablet 1 Tablet QD for 0 days Quantity: 90 {Tablet} Refills: 3 Ordered: 08-Dec-2020 Nitin ORTA, Adolfo Montilla MD Start : 08-Dec-2020 Active Comments: Mail order. Start: 12-08-2020 Norvasc 10 MG Oral Tablet 1 Tablet QD for 0 days Quantity: 10 {Tablet} Refills: 3 Ordered: 08-Dec-2020 Adolfo Osborn MD, MD, Dana M Start : 08-Dec-2020 Active Comments: give 10 day supply until mail order arrives Start: 08-30-2020 take 1 tablet by lefty th once daily Norvasc 10 MG Oral Tablet 1 Tablet QD for 0 days Quantity: 90 {Tablet} Refills: 0 Ordered: 30-Aug-2020 Nitin ORTA, Adolfo Montilla MD Start : 30-Aug-2020 Active Comments: Mail order. Start: 05-25-2020 take 1 tablet by lefty th once daily Norvasc 10 MG Oral Tablet 1 Tablet QD for 0 days Quantity: 90 {Tablet} Refills: 0 Ordered: 25-May-2020 Nitin ORTA, Adolfo Montilla MD Start : 25-May-2020 [...] Quantity: 90 {Tablet} Refills: 3 Ordered: 05-Sep-2018 Bonezzi MD, Adolfo Montilla MD Start : 05-Sep-2018 Active Start: 09-03-2018 take 1 tablet by lefty th once daily Norvasc 10 MG Oral Tablet 1 Tablet QD for 0 days Quantity: 90 {Tablet} Refills: 3 Ordered: 03-Sep-2018 Nitin ORTA, Adolfo Montilla MD Start : 03-Sep-2018 Active Start: 08-05-2018 take 1 tablet by lefty th once daily Norvasc 10 MG Oral Tablet 1 Tablet QD for 0 days Quantity: 90 {Tablet} Refills: 0 Ordered: 05-Aug-2018 Nitin ORTA, Adolfo Osborn MD, Adolfo Thomas Start : 05-Aug-2018 Active take 1 tablet by lefty th once daily amLODIPine 10 mg oral tablet ; 1 tab(s) orally once a day Quantity: 0 Refills: 0 Ordered: 14-Feb-2020 Jody Marie Generic Substitution Allowed Comment on above: Mail order. Mail order. 05-25-20 no refills patient is overdue for an appointment give 10 day supply u ntil mail order arrives apixaban 5 mg oral tablet (1 source) Factor Xa Inhibitor Start: 06-12-2025 take 1 tablet by mouth twice daily ascorbic acid 1000 mg oral tablet (10 sources) Vitamin C Start: 05-27-2025 take 1 tablet by mouth twice daily take 1 mg by mouth twice daily V itamin C 1,000 mg oral tablet bid (1,000 mg) Active CBD eatable (1 source) CBD eatable Quantity: 0 Refills: 0 Ordered: 06-Apr-2022 Taylor Osorio Generic Substitution Allowed cetirizine hydrochloride 10 mg oral capsule (20 sources) Histamine-1 Receptor Antagonist Start: take 1 capsule by mouth once daily Start: 09-17-2020 take 1 capsule by mo [facility] once daily ZyrTEC Allergy 10 MG Oral Capsule 1 (one) Capsule daily for 0 days Quantity: 30 {Capsule} Refills: 0 Ordered: 15-Apr-2021 ARIEL Bradshaw LPN Start : 17-Sep-2020 Active take 1 tablet by lefty th once daily cetirizine (ZYRTEC) 10 mg tablet Take 10 mg by mouth once daily. Active cholecalciferol 0.05 mg oral capsule (20 sources) Vitamin D Start: 05-27-2025 take 1 capsule by mo ut once daily Start: 09-03-2018 take 1 tablet by lefty th once daily Vitamin D3 2000 UNIT Oral Tablet [id number] Tablet qd for 0 days Quantity: 30 {Tablet} Refills: 0 Ordered: 03-Sep-2018 Adolfo Osborn MD, MD, Adolfo Thomas Start : 03-Sep-2018 Active Start: 07-24-2016 take 1 tablet by lefty th in the morning Vitamin D3 2000 UNIT Oral Tablet Chewable 1 (one) Tablet Chewable Tablet Chewable in am for 0 days Quantity: 30 {Tablet} Refills: 0 Ordered: 02-Feb-2017 ARIEL Bradshaw Start : 24-Jul-2016 Active colestipol hydrochloride 100 0 mg oral tablet (20 sources) Bile Acid Sequestrant Start: 05-27-2025 Start: 03-18-2024 take 5 g by mouth once daily C olestipol HCl 5 gram granules Take 5 g by mouth once daily. 03/18/2024 Active hydroCHLOROthiazide 25 mg or al tablet (20 sources) Thiazide Diuretic Start: 05-27-2025 take 1 tablet by mouth once daily Start: 03-31-2024 take 1 tablet by lefty th once daily hydroCHLOROthiazide 25 mg tablet Take 25 mg by mouth once daily. 03/31/2024 Active Start: 03-06-2023 take 1 tablet by lefty th once daily hydroCHLOROthiazide 25 mg oral tablet 1 Tablet QD for 0 days Quantity: 90 {Tablet} Refills: 3 Ordered: 06-Mar-2023 Nitin ORTA, Adolfo Montilla MD Start : 06-Mar-2023 Active Comments: Mail order. Start: 04-14-2022 take 1 tablet by lefty th once daily hydroCHLOROthiazide 25 MG Oral Tablet 1 Tablet QD for 0 days Quantity: 90 {Tablet} Refills: 3 Ordered: 14-Apr-2022 Nitin ORTA, Adolfo Montilla MD Start : 14-Apr-2022 Active Comments: Mail order. Start: 09-26-2021 take 1 tablet by lefty th once daily hydroCHLOROthiazide 25 MG Oral Tablet 1 Tablet QD for 0 days Quantity: 90 {Tablet} Refills: 3 Ordered: 26-Sep-2021 Adolfo Osborn MD, MD, Dana M Start : 26-Sep-2021 Active Start: 12-08-2020 take 1 tablet by lefty th once daily hydroCHLOROthiazide 25 MG Oral Tablet 1 Tablet QD for 0 days Quantity: 10 {Tablet} Refills: 3 Ordered: 08-Dec-2020 Nitin ORTA, Adolfo Montilla MD Start : 08-Dec-2020 Active Comments: 12-08-20 given enough for 10 day supply until mail order arrives Start: 08-30-2020 take 1 tablet by lefty th once daily hydroCHLOROthiazide 25 MG Oral Tablet 1 Tablet QD for 0 days Quantity: 90 {Tablet} Refills: 0 Ordered: 30-Aug-2020 Nitin ORTA, Adolfo Montilla MD Start : 30-Aug-2020 [...] Quantity: 90 {Tablet} Refills: 0 Ordered: 05-Aug-2018 Adoflo Osborn MD, MD, Dana M Start : 05-Aug-2018 Active HYDROCHLOROTHIAZ JULIA 25MG TABLETS ; 1 tab(s) orally once a day Quantity: 0 Refills: 3 Ordered: 14-Feb-2020 Jody Marie Generic Substitution Allowed Comments: Source=Surebryan, Medication=HYDROCHLOROTHIAZIDE 25MG TABLETS, OriginatingSource=[id number], OriginatingProvider=ADOLFO OSBORN, Duration=90, Quantity=90, Refills=3, Date Last Modified/Filled=28-Nov-2019 Comment on above: Mail order. Mail order. 05-25-20 no refills patient is overdue for an appointment 12-08-20 given enough for 10 day supply until mail order arrives Source=Surelondonrijosue, Medication=HYDROCHLOROTHIAZIDE 25MG TABLETS, OriginatingSource=[employer] [id number], OriginatingProvider=ADOLFO OSBORN, Duration=90, Quantity=90, Refills=3, Date Last [...] (20 sources) Angiotensin 2 Receptor Marty Start: 05-27-2025 take 1 tablet by mouth once daily Start: 04-01-2024 losartan (COZA AR) 100 mg tablet 100 mg once daily. 04/01/2024 Active Start: 03-06-2023 take 1 tablet by lefty th once daily losartan 100 mg oral tablet 1 Tablet daily for 0 days Quantity: 90 {Tablet} Refills: 3 Ordered: 06-Mar-2023 Nitin ORTA, Adolfo Montilla MD Start : 06-Mar-2023 Active Comments: Mail order. Start: 04-14-2022 take 1 tablet by lefty th once daily Losartan Potassium 100 MG Oral Tablet 1 Tablet daily for 0 days Quantity: 90 {Tablet} Refills: 3 Ordered: 14-Apr-2022 Nitin ORTA, Adolfo Montilla MD Start : 14-Apr-2022 Active Comments: Mail order. Start: 09-26-2021 take 1 tablet by lefty th once daily Losartan Potassium 100 MG Oral Tablet 1 Tablet daily for 0 days Quantity: 90 {Tablet} Refills: 3 Ordered: 26-Sep-2021 Nitin ORTA, Adolfo Montilla MD Start : 26-Sep-2021 Active Start: 12-08-2020 take 1 tablet by lefty th once daily Losartan Potassium 100 MG Oral Tablet 1 Tablet daily for 0 days Quantity: 90 {Tablet} Refills: 3 Ordered: 08-Dec-2020 Nitin ORTA, Adolfo Montilla MD Start : 08-Dec-2020 [...] ays until mail order arrives metoprolol tartrate 100 mg oral tablet (20 sources) beta-Adrenergic Marty Start: 05-27-2025 take 1 tablet by mouth twice daily Start: 04-16-2024 metoprolol tar trate, short acting, (LOPRESSOR) 50 mg tablet Take [...] Quantity: 20 {Tablet} Refills: 0 Ordered: 08-Dec-2020 Adolfo Osborn MD, MD, Dana M Start : 08-Dec-2020 Active Comments: 12-08-20 give enough for 10 days until mail order arrives Start: 08-30-2020 take 1 tablet by lefty th twice daily Lopressor 50 MG Oral Tablet 1 Tablet bid for 0 days Quantity: 180 {Tablet} Refills: 0 Ordered: 30-Aug-2020 Adolfo Osborn [...] Quantity: 180 {Tablet} Refills: 3 Ordered: 05-Sep-2018 Nitin ORTA, Adolfo Montilla MD Start : 05-Sep-2018 Active Start: 09-03-2018 take 1 tablet by lefty th twice daily Lopressor 50 MG Oral Tablet 1 Tablet bid for 0 days Quantity: 180 {Tablet} Refills: 3 Ordered: 03-Sep-2018 Nitin ORTA, Adolfo Osborn MD, Adolfo Thomas Start : 03-Sep-2018 Active Start: 07-13-2017 take 1 tablet by lefty th twice daily Lopressor 50 MG Oral Tablet 1 Tablet bid for 0 days Quantity: 180 {Tablet} Refills: 3 Ordered: 13-Jul-2017 Nitin ORTA, Adolfo Osborn MD, Adolfo Thmoas Start : 13-Jul-2017 Active Comment on above: Mail order. Mail order. 0 90 days only no refills patient is over due for an appointment 12-08-20 give enough for 10 days until mail order arrives Multivitamin tablet (2 sources) Start: 05-27-20 25 sennosides, fci 8.6 mg oral tablet (7 sources) Start: 07-21-20 24 take 1 tablet by mouth every twelve hours as needed Senna 8.6 mg tab Take 1 tablet by mouth two times a day as needed for constipation. 20 tablet 07/21/2024 5:58 PM EST 07/21/2024 Active sulfamethoxazole 800 mg / trimethoprim 160 mg oral tablet (1 source) Dihydrofolate Reductase Inhibitor Antibacterial, Sulfonamide Antimicrobial Start: 04-06-20 End: 04-15-20 22 take 1 tablet by mouth twice daily [...] should be taken with plenty of water. ubiquinol 100 mg oral capsule (2 sources) Start: 05-27-20 zinc sulfate 220 mg oral tablet (10 sources) Start: 05-27-20 take 1 tablet by mouth once daily take 1 tablet by mouth once amina y zinc sulfate 50 mg zinc (220 mg) oral tablet daily (50 mg zinc (220 mg)) Active Completed/Discontinued Medications Medication Drug Class(es) Dates Sig (Normalized) Sig (Original) [id number] 200 actuat albuterol 0.09 mg/actuat metered dose [...] 3 Ordered: 21-Nov-2011 Adolfo Osborn MD, MD, Dana M Start : 21-Nov-2011 End : 21-Nov-2011 Discontinued [...] 15-Dec-2011 End : 29-Dec-2011 Inactive ascorbic acid 60 mg / beta carotene [...] Quantity: 90 {Tablet} Refills: 3 Ordered: 02-Feb-2017 Adolfo Osborn MD, MD, Dana [...] Quantity: 20 {Capsule} Refills: 0 Ordered: 07-Nov-2021 Dayanna Menchaca LPN Start : 15-Apr-2021 End : 07-Nov-2021 Inactive cefuroxime 500 mg oral tablet (20 sources) Cephalosporin Antibacterial Start: 02-02-2012 End: 02-16-2012 take 1 tablet by mouth twice daily CEFTIN, 500MG (Oral Tablet) 1 Tablet bid for 14 days Quantity: 28 {Tablet} Refills: 0 Ordered: 02-Feb-2012 Arlenedenny Sarah Start : 02-Feb-2012 End : 16-Feb-2012 Inactive [...] 08-Aug-2007 ARIEL Bradshaw End : 08-Aug-2007 Discontinued clotrimazole 10 mg oral lozenge (20 sources) [...] Quantity: 15 {Gram} Refills: 2 Ordered: 03-Sep-2018 ARILE Bradshaw LPN Start : 30-Aug-2017 End : [...] Quantity: 90 {Tablet} Refills: 3 Ordered: 22-Jan-2014 Nitin ORTA, Adolfo Montilla MD Start : 22-Jan-2014 End : 22-Jan-2014 Discontinued [...] oral tablet (20 sources) Start: 012 End: 012 take 1 tablet by mouth once daily PREDNISONE, 20MG (Oral Tablet) 1 Tablet daily for 3 days Quantity: 3 {Tablet} Refills: 0 Ordered: 02-Feb-2012 Sarah Iglesias Start : 02-Feb-2012 End : 05-Feb-2012 Inactive progesterone 200 mg oral capsule (20 sources) Progesterone End: 011 take 1 capsule by mouth once daily PROMETRIUM, 200MG (Oral Capsule) 1 qd for 0 days Refills: 0 Ordered: 16-Jan-2011 End : 16-Jan-2011 Inactive sulfacetamide sodium 100 mg/ml ophthalmic solution (20 sources) Sulfonamide Antibacterial Start: 011 End: 05-30-2 011 SULFACETAMIDE SODIUM, 10% (Ophthalmic Solution) 2 (two) Drop(s) q 2-3 hrs for 7 days Quantity: 1 {Solution} Refills: 0 Ordered: 16-Jan-2011 Sarah Iglesias Start : 16-Jan-2011 End : 23-Jan-2011 Inactive terbinafine 250 mg oral tablet (20 sources) Allylamine Antifungal Start: 012 End: 014 take 1 tablet by mouth [...] oral capsule 2 daily (100 mg) Active Problems Active Problems Problem Classification Problem Date Documented Date Episodic/Chronic Abdominal pain (20 sources) Right lower quadrant pain; Translations: [Abdominal pain, acute, right lower quadrant] Resolved: 4 07-12-2015 Episodic Comment on above: 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 Sandoval pap and mammogram 2013, colonoscopy 07/08 polyp recheck 5 [id number]=9.4% needs to set up for scope and pap. she will get BD and ammo is on the vitamin D Allergic reactions (20 sources) Eczema; Translations: [Allergy to adhesive] Resolved: 9 11-02-2017 Episodic Comment on above: rubber on top of humberto hose. told use steriod creams refer to clean up worker and not want to do yet. Anxiety disorders (2 sources) Mixed anxiety and depressive disorder; Translations: [Anxiety disorder, unspecified] 05-27-2025 Chronic Blindness and vision defects (20 sources) Visual disturbance; Translations: [Unspecified visual disturbance] Resolved: 4 07-13-2015 Episodic Cancer of uterus (9 sources) Malignant neoplasm of endometrium of corpus uteri ; Translations: [Malignant neoplasm of endometrium] Onset: 4 07-08-2024 Chronic Cancer of uterus (2 sources) History of malignant neoplasm of endometrium; Translations: [Personal history of malignant neoplasm of other parts of uterus] 03-03-2025 Episodic Cardiac dysrhythmias (4 sources) Atrial fibrillation; Translations: [Unspecified atrial fibrillation] Onset: 5 05-27-2025 Chronic Conditions associated with dizziness or vertigo (20 sources) Vertigo; Translations: [Vertigo] Resolved: 9 11-02-2017 Episodic Comment on above: peter ohara exerci se handout given bonine sleep next two [...] tests and out of goal. when walking -17 much bettter. bv screening if plague then [...] Resolved: 9 11-02-2017 Episodic Heart valve disorders (19 sources) Heart murmur; Translations: [Heart murmur] Onset: [...] 100 pounds. plan is core training, walking [id number] steps, she already eliminate fast food. work [...] lunch. Other nutritional; endocrine; and metabolic disorders (14 sources) Morbid obesity; Translations: [Morbid (severe) obesity [...] repeat and good. no mass or lesion. 6-17 neuro state alanna igh but REPEAT IN [...] brot her. stress 2011 good. BV screening -18 normal no signs and symptoms at all [...] Localized edema; Translations: [Bilateral leg edema] Onset: 4 Episodic Residual codes; unclassified (3 sources) Postoperative state; Translations: [Other specified postprocedural states] 07-28-2024 Episodic Spondylosis; intervertebral disc disorders; other back problems (20 sources) Low back pain; Translations: [Backache] Resolved: 1 11-02-2017 Episodic Comment on above: willwork on [...] mammogram 2013, colonoscopy 07/08 polyp recheck 5 [id number]=8.4% needs to set up for scope and [...] Test Name Value Interpretation Reference Range Facility Cardiology Visit Reporton Cardiology Visit Report [facility] [address] [place] [address] OFFICE VISIT Date of Service: 06/12/25 MR#: [id number] Acct: [id number] Name: SANTA RAHMAN Rep #: [id number] : 1955 Provider: Dr. Alex oro MD Age/Sex: 69/F [place] [facility] [place] Signed HPI HPI History of Present Illness Details: Patient is a very pleasant 69-year-old white female that comes in today for new patient visit for atrial fibrillation. Patient reports that sometime in February she believes is when she first noticed some palpitations. She was evaluated with an echocardiogram May 08, 2025 and was noted to be in atrial fibrillation and has been on Eliquis for approximately a month now. She is on 5 mg twice daily. The patient is also on metoprolol which has had good rate control. ECG in office today shows atrial fibrillation with a controlled ventricular response at 65 bpm she has borderline low voltage QRS is consistent with her body habitus and poor R wave progression consistent with her body habitus. The echocardiogram done May 08 showed a pulmonary artery pressure of 48 mmHg with tricuspid regurgitation. She had mild mitral annular calcification 1+ MR 1+ TR moderate biatrial enlargement mild concentric LVH with an EF of 65%. Her aortic root was mildly dilated. She had aortic valve sclerosis with no stenosis. The patient carries a history of hypertension blood pressure is 184/92 in the office she reports it is usually 136 over the mid 80s in her home environment. The patient does have known coronary disease with an elevated coronary calcification noted on CT scan. This was described as moderate there was no scoring done. Patient also has a history of hyperlipidemia that is managed through the primary service she had blood work done yesterday which we do not have access to at this time. Patient also has obstructive sleep apnea she is on CPAP which she uses religiously. The patient denies any syncope or near syncope she is aware when she is in atrial fibrillation. She denies any chest pains tightness or squeezing. She does have bilateral lower extremity large legs with nonpitting edema. The patient is currently being evaluated for surgical weight loss intervention through [facility]. She has failed on GLP-1 intervention. The patient's cardiovascular risk factors include a family history of both coronary disease and infarcts as well as sudden cardiac and 2 family members with atrial fibrillation. She is hypertensive and hyperlipidemic. The patient is not diabetic and she has never smoked. Intake Vital Signs 06/12/25 08:12 Height 5 ft 5 in Weight: 163 lb BMI 27.1 BP 182/92 H Blood Pressure Location Lt brachial Position Sitting Respiration 20 H Pulse 70 Pulse Source Monitor Pulse Oximetry (%) 94 Intake Visit Reasons: NEW ONSET AFIB (BONEZZI) Information [employer] Required: No Is patient in pain?: No Allergies No Known Allergies Allergy (Unverified 06/12/25 08:12) Medications ???Medication ???Instructions ???Recorded ???Confirmed ???Type amlodipine 10 mg tablet (Norvasc) 10 mg PO QDAY 05/27/25 06/12/25 H istory ascorbic acid (vitamin C) 1,000 mg 1,000 mg PO BID 05/27/25 5 History tablet cetirizine 10 mg capsule (Zyrtec) 10 mg PO QDAY 05/27/25 06/12/25 H istory cholecalciferol (vitamin D3) 50 50 mcg PO QDAY 05/27/25 06/12/25 H istory mcg (2,000 unit) capsule coQ10 (ubiquinol) 100 mg capsule 200 mg PO QDAY 05/27/25 06/12/25 H istory (Qunol Facundo CoQ10) colestipol 1 gram tablet 5 g PO QAC 05/27/25 06/12/25 Histo ry hydrochlorothiazide 25 mg tablet 25 mg PO QDAY 05/27/25 06/12/25 Hi story losartan 100 mg tablet 100 mg PO QDAY 05/27/25 06/12/25 H istory metoprolol tartrate 100 mg tablet 100 mg PO BID 05/27/25 06/12/25 H istory (Lopressor) multivitamin 1 tab PO QDAY 05/27/25 06/12/25 Hi story zinc sulfate 50 mg zinc (220 mg) 50 mg PO QDAY 05/27/25 06/12/25 Hi story tablet apixaban 5 mg tablet (Eliquis) 5 mg PO BID 06/12/25 06/12/25 Hist ory Ejection fraction %: 65 Have you fallen in the past year?: No PFSH Medical History Heart murmur Endometrial cancer, grade I Abnormal brain MRI Morbid obesity Hyperlipidemia Anxiety and depression Sleep apnea Atrial fibrillation Hypertension Surgical History History of hysterectomy Family History Son Hyperlipidemia Mother CAD (coronary artery disease) Myocardial infarction Sister CAD (coronary artery disease) Atrial fibrillation Grandmother Colon cancer Brother SVT (supraventricular tachycardia) Atrial (more content not included)... Normal CTA Chest W/WO Contraston CTA Chest W/WO Contrast [facility] [address] [place], [place] [address] CTA Chest W/WO Contrast MR#: [id number] Acct: [id number] Name: SANTA RAHMAN Rep #: [id number] : 1955 F 69 From: Dusty valadez MD PCP: Dr. Adolfo Osborn MD Status: REG CLI Study: CTA Chest W/WO Contrast Date of Exam: 05/22/25 Exam# [id number] Ordering Dr: Adolfo Osborn MD PROCEDURE: CTA CHEST W/WO CONTRAST 05/22/2025 REASON FOR EXAM: OTHER SPECIFIED ABNORMAL FINDINGS OF BLOOD TECHNIQUE: Procedure Code: [id number] Modality: CT Procedure: CTA CHEST W/WO CONTRAST Multiplanar Sagittal and Coronal images were obtained. CONTRAST: Isovue 370 VOLUME: 100 mL One or more dose reduction techniques were used (e.g., Automated exposure control, adjustment of the mA and/or kV according to patient size, use of iterative reconstruction technique). RADIATION DOSE SUMMARY: CTDlvol: 15.5 mGy DLP: 563 mGycm COMPARISON: 09/17/2020. FINDINGS: Peripherally calcified nodule of the left thyroid lobe measuring 1 cm. Moderate coronary artery calcifications are noted. Moderate cardiomegaly. Enlarged main pulmonary artery suggestive of pulmonary arterial hypertension. Subsegmental atelectatic changes. Bilateral basilar hypoventilatory pulmonary changes/ground-glass densities of the lower lobes, hypoventilatory pulmonary changes and/or less likely developing pneumonia. Diffuse spondylosis. Normal enhancement of the main pulmonary artery and right and left pulmonary arteries. Normal enhancement of the bilateral peripheral pulmonary arteries. There is no demonstrated pulmonary embolism. Normal thoracic aorta and visualized great vessels. There is no demonstrated aortic dissection. Normal pericardium. Normal mediastinum. Normal hilar regions. Normal visualized trachea and bronchi. Normal pleura. CT/CTA Chest W/WO Contrast IMPRESSION: No demonstrated pulmonary embolism or arterial dissection. Peripherally calcified nodule of the left thyroid lobe measuring 1 cm. Moderate coronary artery calcifications are noted. Moderate cardiomegaly. Enlarged main pulmonary artery suggestive of pulmonary arterial hypertension. Subsegmental atelectatic changes. Bilateral basilar hypoventilatory pulmonary changes/ground-glass densities of the lower lobes, hypoventilatory pulmonary changes and/or less likely developing pneumonia. Diffuse spondylosis. Reading Location: [place] [address] CC: Dr. Adolfo Osborn MD Poundmaster: Signed Normal Echo Completeon 05-08-2025 Echo Complete [facility] [address] [place] [address] Echo Complete 05/08/25 1315 MR#: [id number] Acct: [id number] Name: SANTA RAHMAN Rep #: [id number] : 1955 69 From: Deb Jacques MD Attending Dr: Dr. Adolfo Osborn MD Status: REG CLI Ordering Dr: Adolfo Osborn MD Date: 05/08/25 Location: [facility] Sex: F C Admitted: Reason For Study [...] CC: Dr. Adolfo Osborn MD Date Dictated: 05/08/251314 Date Transcribed: 05/08/251447 Poundmaster: Signed Normal Echocardiogram study reportO rdered By: Deb Jacques on 05-08-2025 Study report [facility] [address] [place] [address] Echo Complete 05/08/251314 MR#: [id number] Acct: [id number] Name: SANTA RAHMAN Rep #:[id number] : 1955 69 From: Deb Jacques MD Attending Dr: Dr. Adolfo Osborn MD Status: REG CLI Ordering Dr: Adolfo Osborn MD Date: Location: [facility] Sex: F C Admitted: Reason For Study [...] echocardiographic indications of cardiac tamponade. MMode/2D Measurements & Calculations LVIDd: 5.3 cm IVSd: 1.3 cm [...] 25.3 cm2 TAPSE: 1.9 cm Doppler Measurements & Calculations MV E max roberto: 107.4 cm/sec [...] By: Keyona Meraz RCS 05/08/25 1448 Date _ Deb Jacques MD CC: Dr. Adolfo Osborn MD ~ Date Dictated: 05/08/25 1315 Date Transcribed: 05/08/25 144 Poundmaster: Signed Work Phone: Breast imaging reportOrdered By: Ary Pinto on 04-20-2025 Study report [facility] [address] [address] SCRN MAMM (CAD)W/DORA BILAT MR#: [id number] Acct: [id number] Name: SANTA RAHMAN Rep #: [id number] : 1955 F 69 From: Jared Pinto DO PCP: Dr. Adolfo Osborn MD Status: REG C Study:SCRN MAMM (CAD)W/DORA BILAT Date of Exa m: 04/20/25 Exam# [id number] Ordering Dr: Adolfo Osborn MD EXAM: SCRN [...] be mailed to the patient. Reading Location: [facility] CC: Dr. Adolfo Osborn MD ~ Poundmaster: Signed SCRN MAMM (CAD)W/DORA BILATo n 04-20-2025 SCRN MAMM (CAD)W/DORA BILAT [facility] [address] [place], [place] [address] SCRN MAMM (CAD)W/DORA BILAT MR#: [id number] Acct: [id number] Name: SANTA RAHMAN Rep #: [id number] : 1955 F 69 From: Ary Paez PCP: Dr. Adolfo Osborn MD Status: [facility] Study: SCRN MAMM (CAD)W/DORA BILAT Date of Exam: 03/28 01/18 Exam# [id number] Ordering Dr: Adolfo Osborn MD EXAM: SCRN [...] be mailed to the patient. Reading Location: [facility] CC: Dr. Adolfo Osborn MD Poundmaster: Signed Normal BACTERIAL VAGINOSIS NAATon 0 03-03-2025 Lactobacillus crispatus+gasseri+beth senii + Gardnerella vaginalis + Atopobium vaginae rRNA VIKTORIA+probe Ql (Vag fld) Not detected Normal Not detected [facility] Comment on above: Order Comment: Speci men Type: SWAB Ordering Facility: [facility] Address: [address] [place] [address] Performed By: #### B VAMP, CVTV #### [facility] CLIA [id number] [address] [place] [address] [place] THANH/TRICHOMONAS NAATon 0 03-03-2025 C. glabrata RNA VIKTORIA+probe Ql (Vag fld) Not detected Normal Not detected [facility] Comment on above: Order Comment: Speci men Type: SWAB Ordering Facility: [facility] Address: [address] [place] [address] Performed By: #### B VAMP, CVTV #### [facility] CLIA [id number] [address] [place] [address] [place] Thanh sp DNA VIKTORIA+probe Ql (Vag fld) Detected Abnormal Not detected [facility] Comment on above: Order Comment: Speci men Type: SWAB Ordering Facility: [facility] Address: [address] [place] [address] Result Comment: The Thanh species group target includes C. albicans, C. tropicalis, C. parapsilosis, and C. dubliniensis. Performed By: #### B VAMP, CVTV #### [facility] CLIA [id number] [address] [place] [address] [place] T. vaginalis DNA VIKTORIA+probe Ql (Unsp spec) Not detected Normal Not detected [facility] Comment on above: Order Comment: Speci men Type: SWAB Ordering Facility: [facility] Address: [address] [place] [address] Performed By: #### B VAMP, CVTV #### [facility] CLIA [id number] [place] CNOVSPon 03-03-2025 CNOVSP Visit (SP) Office (G YNML) ----- SANTA RAHMAN ([id number]) 1955 F Date Time Provider Department 03/03/25 10:30 AM DEJA NUNEZ During your visit today, we recorded the following information about you: Pulse Respiration Blood pressure Weight 60/minute 18/minute 163/96 171.1 kg Deja Nunez APRN.ESTIMATOR AND DRAFTER SUPERVISOR 03/03/2025 11:04 AM Signed DATE OF SERVICE: [...] for a few days. Santa presented to [facility] with complaints of PMB. Thickened endometrium noted on US. 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 Patient presents to [facility] for further evaluation. Patient reports that [...] tubes showing no significant pathologic abnormality. B. [place] lymph node, left, biopsy: - One lymph node, negative for carcinoma (0/1); see comment. C. [place] lymph node, right, biopsy: - One lymph [...] this year AD (more content not included)... [facility] CNOVSPon 09-02-2024 CNOVSP Visit (SP) Office (Ad YNML) ----- SANTA RAHMAN ([id number]) 1955 F Date Time Provider Department 09/02/24 11:30 AM DJEA NUNEZ During your visit today, we recorded the [...] for a few days. Santa presented to [facility] with complaints of PMB. Thickened endometrium noted on US. 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 Patient presents to [facility] for further evaluation. Patient reports that [...] tubes showing no significant pathologic abnormality. B. [place] lymph node, left, biopsy: - One lymph node, negative for carcinoma (0/1); see comment. C. [place] lymph node, right, biopsy: - One lymph [...] Last mammogram: 04/2024 (more content not included)... [facility] CNOVSPon 08-14-2024 CNOVSP Visit (SP) Office (G YNML) ----- SANTA RAHMAN ([id number]) 1955 F Date Time Provider Department 08/14/24 10:45 AM SERA REDDY GYN During your visit [...] for a few days. Santa presented to [facility] with complaints of PMB. Thickened endometrium noted on US. 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 Patient presents to [facility] onc for further evaluation. Patient reports that [...] tubes showing no significant pathologic abnormality. B. [place] lymph node, left, biopsy: - One lymph node, negative for carcinoma (0/1); see comment. C. [place] lymph node, right, biopsy: - One lymph [...] 04/2024 Last c (more content not included)... [facility]NML[facility] ----- SANTA RAHMAN ([id number]) 1955 F Date Time Provider Department 07/31/24 BONNIESAQIBDEJA GYN During your visit today, we recorded the following information about you: Deja Nunez APRN.CNP 07/31/2024 6:28 PM Signed Called Mica to [...] tubes showing no significant pathologic abnormality. B. [place] lymph node, left, biopsy: - One lymph node, negative for carcinoma (0/1); see comment. C. [place] lymph node, right, biopsy: - One lymph [...] levels were performed and evaluated at the [facility] using blocks B1, B2, C1, C2, and C3. Levels and cytokeratin immunohistochemical stains are all negative for carcinoma. Laboratory Developed Test (LDT) Disclaimer: Performance characteristics of immunohistochemical, immunofluorescent and chromogenic in-situ hybridization tests have been determined by the performing laboratory within [facility] Pathology and Laboratory Medicine Department ([facility], [facility], [facility], [facility], [facility], or [facility]) in a manner consistent with CLIA requirements. [...] Pelvic Nodes Examined 2 Number of Pelvic [place] Nodes Examined 2 Total Number of Para-aortic [...] All questions answered at this time. Deja Nunez, CATERINA.ESTIMATOR AND DRAFTER SUPERVISOR July 31, 2024 6:28 PM Allergies As of Date: 07/31/2024 (No Known Allergies) Date Reviewed: 07/21/2024 Reviewed by: Rachel Trivedi, RONAK - Fully Assessed Reason for Visit: Results [95] Primary Visit Diagnosis:Endometrial (more content not included)... Normal [facility] ANES POSTPROC EVALon 024 ANES POSTPROC EVAL HNO ID: [id number] Author: FAUSTINO OCHOA MD Service: ? Author Type: Anesthesiologist Type: Anesthesia Postprocedure Evaluation Filed: 07/21/2024 12:54 Note Text: POST ANESTHESIA EVALUATION NOTE : 1955 Procedure Summary Date: 07/21/24 Room / Location: [address] Anesthesia Start: 719 Anesthesia Stop: 1224 Procedures: [...] July 21, 2024 TIME: 12:53 PM CSN: [id number] Normal [facility] ANES PRE-OPon 07-21-2024 ANES PRE-OP HNO ID: [id number] Author: OCTAVIA HONG MD Service: ? Author Type: Anesthesiologist Type: Anesthesia Preprocedure Evaluation Filed: 07/21/2024 07:01 Note Text: ANESTHESIOLOGY DAY OF SURGERY NOTE : 1955 Procedure Information Date/Time: 07/21/24729 Procedures: LAPAROSCOPIC HYSTERECTOMY TOTAL FOR UTERUS 250 G OR LESS W/REMOVAL TUBE(S) AND/OR OVARY(S) (Bilateral: Pelvis) INTRAOPERATIVE ID OF SENTINEL LYMPH NODE(S) INCL'D INJECTION OF NON-RAD DYE WHEN PERFORMED (Bilateral: Pelvis) Location: [facility] OR[facility] Surgeons: Sera Reddy MD Estimated body mass index is 61.07 kg/m? as calculated from the following: Height as of this encounter: 165.1 cm (5' 5"). Weight as of this encounter: 166.5 kg [...] and consent discussed: yes. Patient / Responsible Democrat agrees to proceed: yes Patient / Surrogate [...] July 21, 2024 TIME: 7:00 AM CSN: [id number] Normal [facility] BRIEF OP NOTon 07-21-2024 BRIEF OP NOT HNO ID: [id number] Author: BRENTON SEGURA MD Service: Gynecology Oncology Author Type: Fellow Type: Brief Op Note Filed: 07/21/2024 11:33 Note Text: BRIEF OPERATIVE / PROCEDURE NOTE LOG ID: [id number] SURGERY/PROCEDURE DATE: 07/21/2024 INCISION/PROCEDURE START TIME: 8:26 AM INCISION CLOSE/PROCEDURE END TIME: SURGEON(S)/PROCEDURALIST( S) AND CARTON FORMING MACHINE OPERATOR(S): Surgeons and Role: * Sear Reddy MD - Primary * Timothy De La Garza MD - Resident - Assisting * Brenton Segura MD - Fellow No Additional Staff SURGERY/PROCEDURE(S): EUA Total laparoscopic hysterectomy bilateral salpingo-oophorectomy Pelvic [place] lymph node dissection Minilaparotomy Cystoscopy ANESTHESIA: General [...] sentinel lymph node Tissue Lymph Node, Left, [place] SURGICAL PATHOLOGY Sera Reddy MD 07/21/2024 10:07 AM C : right pelvic sentinel lymph node Tissue Lymph Node, Right, [place] SURGICAL PATHOLOGY Sera Reddy MD 07/21/2024 10:13 [...] July 21, 2024 TIME: 11:[address] [facility] CNNURSEon 07-21-2024 CNNURSE Nurse Visit (MARÍA) ----- KAYODESANTA ([id number]) 1955 F Date Time Provider Department 07/21/24 [...] Allergies) Date Reviewed: 07/21/2024 Reviewed by: Deja Lopez, RONAK - Fully Assessed Primary Visit Diagnosis:Endometrial cancer [...] Status:Closed by MARGARITA DUNN on 07/21/[address] [facility] CONFIRM BLOOD TYPEon 024 ABO O Normal [facility] Comment on above: Order Comment: Speci men Type: BLOOD SPECIMENOrdering Facility: [facility] Address: [address] [place] [address] Performed By: #### C ONABO ####[facility] [id number] [address] [place] Rh Nom (Bld) Negative Normal [facility] Comment on above: Order Comment: Speci men Type: BLOOD SPECIMENOrdering Facility: [facility] Address: [address] [place] [address] Performed By: #### C ONABO ####[facility] B[facility]CLIA [id number] [address] OPERATIVE NOon 07-21-2024 OPERATIVE NO HNO ID: [id number] Author: SERA REDDY MD Service: Gynecology Oncology Author Type: Physician Type: Operative Report Filed: 07/21/2024 11:55 Note Text: OPERATIVE/PROCEDURE REPORT LOG ID: [id number] SURGERY/PROCEDURE DATE: 07/21/2024 INCISION/PROCEDURE START TIME: 8:26 AM INCISION CLOSE/PROCEDURE END TIME: 11:50 AM SURGEON(S)/PROCEDURALIST( S) AND CARTON FORMING MACHINE OPERATOR(S): Surgeons and Role: * Sera Reddy MD [...] to 12cm and was serially dilated. A vcare uterine manipulator was carefully placed into the [...] dissection and bipolar cautery. Ureter was identified. [place] lymph node mapping was not clear at [...] same was completed on the right side. [place] lymph nodes were also removed through vagina. The vagina was closed laparoscopically in a running fa (more content not included)... Normal [facility] BLOOD BANK COMMENTon 024 BLOOD BANK COMMENT See Comment Normal [facility] Comment on above: Order Comment: Speci men Type: BLOOD SPECIMEN Ordering Facility: [facility] Address: [address] [place] [address] Result Comment: 2nd sample NEEDED for ABO confirmation (CONABO) Performed By: #### T SCR30, [id number] #### [facility] CLIA [id number] [address] [place] [address] [place] CBC panel Auto (Bld)on 07-17 Erythrocyte distribution width (RBC) [Ratio] 15.0 % Normal 11.5-15.0 [facility] Comment on above: Order Comment: Speci men Type: BLOOD SPECIMEN Ordering Facility: [facility] Address: [address] [place] [address] Performed By: #### 5 8410-2 #### [facility] CLIA [id number] [address] Hematocrit (Bld) [Volume fraction] 46.9 % High 36.0-46.0 [facility] Comment on above: Order Comment: Speci men Type: BLOOD SPECIMEN Ordering Facility: [facility] Address: [address] [place] [address] Performed By: #### 5 8410-2 #### [facility] CLIA [id number] [address] [facility] Hemoglobin (Bld) [Mass/Vol] 15.2 g/dL Normal 11.5-15.5 [facility] Comment on above: Order Comment: Speci men Type: BLOOD SPECIMEN Ordering Facility: [facility] Address: [address] [place] [address] Performed By: #### 5 8410-2 #### [facility] CLIA [id number] [address] MCH (RBC) [Entitic mass] 27.9 pg Normal 26.0-34.0 [facility] Comment on above: Order Comment: Speci men Type: BLOOD SPECIMEN Ordering Facility: [facility] Address: [address] [place] [address] Performed By: #### 5 8410-2 #### [facility] CLIA [id number] [address] MCHC (RBC) [Mass/Vol] 32.4 g/dL Normal 30.5-36.0 [facility] Comment on above: Order Comment: Speci men Type: BLOOD SPECIMEN Ordering Facility: [facility] Address: [address] [place] [address] Performed By: #### 5 8410-2 #### [facility] CLIA [id number] [address] MCV (RBC) [Entitic vol] 86.2 fL Normal 80.0-100.0 [facility] Comment on above: Order Comment: Speci men Type: BLOOD SPECIMEN Ordering Facility: [facility] Address: [address] [place] [address] Performed By: #### 5 8410-2 #### [facility] CLIA [id number] [address] [place] [address] [place] Nucleated RBC (Bld) [#/Vol] 10*3/uL Normal <0.01 [facility] Comment on above: Order Comment: Speci men Type: BLOOD SPECIMEN Ordering Facility: [facility] Address: [address] [place] [address] Performed By: #### 5 8410-2 #### [facility] CLIA [id number] [address] [place] [address] [place] Platelet mean volume (Bld) [Entitic vol] 9.7 fL Normal 9.0-12.7 [facility] Comment on above: Order Comment: Speci men Type: BLOOD SPECIMEN Ordering Facility: [facility] Address: [address] [place] [address] Performed By: #### 5 8410-2 #### [facility] CLIA [id number] [address] [place] Platelets (Bld) [#/Vol] 323 10*3/uL Normal 150-400 [facility] Comment on above: Order Comment: Speci men Type: BLOOD SPECIMEN Ordering Facility: [facility] Address: [address] [place] [address] Performed By: #### 5 8410-2 #### [facility] CLIA [id number] [address] [place] RBC (Bld) [#/Vol] 5.44 10*6/uL High 3.90-5.20 [facility] Comment on above: Order Comment: Speci men Type: BLOOD SPECIMEN Ordering Facility: [facility] Address: [address] [place] [address] Performed By: #### 5 8410-2 #### [facility] CLIA [id number] [address] [place] WBC (Bld) [#/Vol] 7.74 10*3/uL Normal 3.70-11.00 [facility] Comment on above: Order Comment: Speci men Type: BLOOD SPECIMEN Ordering Facility: [facility] Address: [address] [place] [address] Performed By: #### 5 8410-2 #### [facility] CLIA [id number] [address] [place] [address] [place] Cancer Ag125 SerPl-aCncon Cancer Ag 125 Qn 8 [arb'U]/mL Normal <39 [facility] Comment on above: Order Comment: Speci men Type: BLOOD SPECIMEN Ordering Facility: [facility] Address: [address] [place] [address] Result Comment: CA 1 25 test methodology [...] (CA 125 II) [package insert V 1.0 [place]]. [facility], [place], [place] (May 2015) Performed By: #### 1 0334-1 #### [facility] CLIA [id number] [address] [place] [address] [place] Comprehensive metabolic 2000 panelon 07-17-2024 Albumin [Mass/Vol] 4.1 g/dL Normal 3.9-4.9 [facility] Comment on above: Order Comment: Speci men Type: BLOOD SPECIMEN Ordering Facility: [facility] Address: [address] [place] [address] Performed By: #### 2 4323-8 #### [facility] CLIA [id number] [address] [place] ALP [Catalytic activity/Vol] 92 U/L Normal 34-123 [facility] Comment on above: Order Comment: Speci men Type: BLOOD SPECIMEN Ordering Facility: [facility] Address: [address] [place] [address] Performed By: #### 2 4323-8 #### [facility] CLIA [id number] [address] [place] [address] [place] ALT [Catalytic activity/Vol] 41 U/L High 7-38 [facility] Comment on above: Order Comment: Speci men Type: BLOOD SPECIMEN Ordering Facility: [facility] Address: [facility] [place] [address] Performed By: #### 2 4323-8 #### [facility] CLIA [id number] [address] [place] [address] [place] Anion gap [Moles/Vol] 14 mmol/L Normal 8-15 [facility] Comment on above: Order Comment: Speci men Type: BLOOD SPECIMEN Ordering Facility: [facility] Address: [address] [place] [address] Performed By: #### 2 4323-8 #### [facility] CLIA [id number] [address] AST [Catalytic activity/Vol] 18 U/L Normal 13-35 [facility] Comment on above: Order Comment: Speci men Type: BLOOD SPECIMEN Ordering Facility: [facility] Address: [address] [place] [address] Performed By: #### 2 4323-8 #### [facility] CLIA [id number] [address] [place] Bilirubin [Mass/Vol] 0.4 mg/dL Normal 0.2-1.3 [facility] Comment on above: Order Comment: Speci men Type: BLOOD SPECIMEN Ordering Facility: [facility] Address: [address] [place] [address] Performed By: #### 2 4323-8 #### [facility] CLIA [id number] [address] [place] Calcium [Mass/Vol] 9.6 mg/dL Normal 8.5-10.2 [facility] Comment on above: Order Comment: Speci men Type: BLOOD SPECIMEN Ordering Facility: [facility] Address: [address] [place] [address] Performed By: #### 2 4323-8 #### [facility] CLIA [id number] [address] [place] Chloride [Moles/Vol] 101 mmol/L Normal 98-107 [facility] Comment on above: Order Comment: Elmo mo Type: BLOOD SPECIMEN Ordering Facility: [facility] Address: [address] [place] [address] Performed By: #### 2 4323-8 #### [facility] CLIA [id number] [address] CO2 [Moles/Vol] 25 mmol/L Normal 22-30 [facility] Comment on above: Order Comment: Speci men Type: BLOOD SPECIMEN Ordering Facility: [facility] Address: [address] [place] [address] Performed By: #### 2 4323-8 #### [facility] CLIA [id number] [address] Creatinine [Mass/Vol] 0.43 mg/dL Low 0.58-0.96 [facility] Comment on above: Order Comment: Elmo men Type: BLOOD SPECIMEN Ordering Facility: [facility] Address: [address] [place] [address] Performed By: #### 2 4323-8 #### [facility] CLIA [id number] [address] Creatinine and Glomerular filtration rate.predicted panel (S/P/Bld) 107 mL/min/1.73m??? Normal >=60 [facility] Comment on above: Order Comment: Elmo mo Type: BLOOD SPECIMEN Ordering Facility: [facility] Address: [address] [place] [address] Result Comment: Jessica mated Glomerular Filtration Rate [...] GFR. Performed By: #### 2 4323-8 #### [facility] CLIA [id number] [address] [facility] Glucose [Mass/Vol] 92 mg/dL Normal 74-99 [facility] Comment on above: Order Comment: Elmo mo Type: BLOOD SPECIMEN Ordering Facility: [facility] Address: [address] [place], [place] [id number] Result Comment: The [place] Diabetes Association (ADA) provides guidance for cutoff [...] Standards of Medical Care in Diabetes 2016, [place] Diabetes Association. Diabetes Care. 2016.39(Suppl 1). Performed By: #### 2 4323-8 #### [facility] CLIA [id number] [address] [place] [address] [place] Potassium [Moles/Vol] 4.0 mmol/L Normal 3.7-5.1 [facility] Comment on above: Order Comment: Elmo mo Type: BLOOD SPECIMEN Ordering Facility: [facility] Address: [address] [place] [address] Performed By: #### 2 4323-8 #### [facility] CLIA [id number] [address] [place] [address] [place] Protein [Mass/Vol] 8.1 g/dL High 6.3-8.0 [facility] Comment on above: Order Comment: Elmo mo Type: BLOOD SPECIMEN Ordering Facility: [facility] Address: [address] [place], [place] [address] Performed By: #### 2 4323-8 #### [facility] CLIA [id number] [address] [place] [address] [place] Sodium [Moles/Vol] 140 mmol/L Normal 136-144 [facility] Comment on above: Order Comment: Elmo mo Type: BLOOD SPECIMEN Ordering Facility: [facility] Address: [address] [place] [address] Performed By: #### 2 4323-8 #### [facility] CLIA [id number] [address] Urea nitrogen [Mass/Vol] 11 mg/dL Normal 03-16 [facility] Comment on above: Order Comment: Speci men Type: BLOOD SPECIMEN Ordering Facility: [facility] Address: [address] [place] [address] Performed By: #### 2 4323-8 #### [facility] CLIA [id number] [address] OF [facility] ECG COMPLETEon 07-17-2024 ECG COMPLETE Ventricular Rate : 5 8 BPM Atrial Rate : 58 BPM P-R Interval : 224 ms QRS Duration : 112 ms Q-T Interval : 448 ms QTC Calculation(Bazett) : 439 ms Calculated P [place] : 17 degrees Calculated R [place] : -5 degrees Calculated T [place] : 18 degrees SINUS BRADYCARDIA WITH 1ST DEGREE A-V BLOCK INCOMPLETE LEFT BUNDLE BRANCH BLOCK MINIMAL VOLTAGE CRITERIA FOR LVH, MAY BE NORMAL VARIANT BORDERLINE ECG NO PREVIOUS ECGS AVAILABLE Confirmed by MD ARIAS QARAB ([id number]) on 07/18/2024 2:43:25 PM NAME : SANTA RAHMAN PID : [id number] : 1955 Gender : Female Race : ORD : [id number] Procedure Date : Jul 17 2024 13:16:04 Edit Date : Jul 18 2024 14:43:29 Diagnosis: SINUS BRADYCARDIA WITH 1ST DEGREE A-V BLOCK INCOMPLETE LEFT BUNDLE BRANCH BLOCK MINIMAL VOLTAGE CRITERIA FOR LVH, MAY BE NORMAL VARIANT BORDERLINE ECG NO PREVIOUS ECGS AVAILABLE Confirmed by MD ARIAS QARAB ([id number]) on 07/18/2024 2:43:25 PM Test Reason : [facility] Location : 10 : [facility]/ Overread By : MD ARIAS QARAB Edited By : MD ARIAS QARAB Referred By : DEJA NUNEZ Acquired by : Claudette THOMAS [facility] HISTORY PHYSICALon HISTORY PHYSICAL HNO ID: [id number] Author: ANDRADE COLE APRN.CNP Service: ? Author Type: Nurse Practitioner [...] during sleep Non-male patient STOP-Bang Score: 5 [id number] Score: Age: 65-74 Sex: female CHF history: No Hypertension history: Yes Stroke/TIA/thromboembolis m history: No Vascular disease history: No Diabetes history: No [id number] Score: 3 ARISCAT Score: Age: 51-80 Preoperative [...] placed in this encounter. REASON FOR VISIT: Snata Rahman is a 68 year old female [...] bleeding) (05/16/2024), Primary (more content not included)... [facility] TYPE AND SCREEN,30 DAYon ABO O [facility] Comment on above: Order Comment: Speci men Type: BLOOD SPECIMEN Ordering Facility: [facility] Address: [address] [place] [address] Performed By: #### T SCR30, [id number] #### [facility] CLIA [id number] [address] Rh Nom (Bld) Negative [facility] Comment on above: Order Comment: Speci men Type: BLOOD SPECIMEN Ordering Facility: [facility] Address: [address] [place] [address] Performed By: #### T SCR30, [id number] #### [facility] CLIA [id number] [address] XR CHEST 2V FRONTAL/LATon XR CHEST 2V [...] abnormality. No evidence of nodule or mass Poundmaster: KATELYN Transcribe Date/Time: Jul 17 2024 4:12P Dictated by : CAR MOSLEY MD This examination was interpreted and the report reviewed and electronically signed by: CAR MOSLEY MD on Jul 17 2024 4:24PM EST [id number] Normal [facility] XR Chest PA and Lateralon IMPRESSION: No acute radiographic abnormality. No evidence of nodule or mass Poundmaster: KATELYN Transcribe Date/Time: Jul 17 2024 4:12P Dictated by : CAR MOSLEY MD This examination was interpreted and the report reviewed and electronically signed by: CAR MOSLEY MD on Jul 17 2024 4:24PM EST [facility] * * *Final Report* * * [...] soft tissues: Multilevel degenerative change and osteophytosis. [facility] Provider, [facility] - 07/17/2024 * * *Final Report* * [...] abnormality. No evidence of nodule or mass Poundmaster: PSCB Transcribe Date/Time: Jul 17 2024 4:12P Dictated by : CAR MOSLEY MD This examination was interpreted and the report reviewed and electronically signed by: CAR MOSLEY MD on Jul 17 2024 4:24PM EST [facility] Radiology Study observation (narrative) [facility] XR Chest PA and LateralOrder ed By: Ccf Provider on 07-17-2024 [facility] CNPNon 07-16-2024 CNPN Telephone (WHQ) ----- SANTA RAHMAN ([id number]) 1955 F Date Time Provider Department 07/16/24 SERA REDDY [facility] During your visit today, we recorded the following information about you: MccrackenOsmin 07/16/2024 9:39 AM Signed Called patient and confirmed surgery date 07/21/2024 and future appointments. Patient verbalized understanding. Allergies As of Date: 07/16/2024 (No Known Allergies) Date Reviewed: 07/10/2024 Reviewed by: January Urban MA - Fully Assessed Reason for Visit: Schedule Surgery [1330] Appointment Confirmation [3675] Prescriptions as of 07/16/2024 - albuterol HFA [...] Status:Closed by OSMIN MCCRACKEN on 07/16/[address] [facility] CNOVSPon 07-10-2024 CNOVSP Visit (SP) Office (G YNML) ----- SANTA RAHMAN ([id number]) 1955 F Date Time Provider Department 07/10/24 [...] for a few days. Santa presented to [facility] with complaints of PMB. Thickened endometrium noted on US. 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 Patient presents to sports administrator onc for further evaluation. Patient reports that [...] Never Occupation: retired, RN Marital Status: , Anrdew HEALTH MAINTENANCE: Last mammogram: 04/2024 Last colonoscopy: [...] lower extremity edema, or palpitations. No recent MT (within 6 months), cardiac stent, cardiac surgery, gangrene, or PVD. No history of hypertension. BREAST: No breast lumps, skin changes, nipple discharge, or adenopathy. GI: No abdominal pain, nausea, vomiting, diarrhea, or constipation, +bloating, diarrhea (improved with medication cholestipal). No prior history of esophageal varicies or ascites. Patient denies drinking >2 alcoholic beverages a day. LINE APPLIANCE ASSEMBLER: + spotting.No vulvar bumps, lesions, pruritis, or pain. : No dysuria, gross hematuria, urinary frequency, urinary urgency. +stress incontinence No history of renal failure, dialysis, or recent UTI (<6 weeks). MUSCULOSKELETAL: No muscle weakness. + joint pain SKIN: No skin lesions, rashes, or itching. PSYCH: No sleep disturba (more content not included)... [facility] Office Visit (GMIGMN ) ----- SANTA RAHMAN ([id number]) 1955 F Date Time Provider Department 06/19/24 9:30 AM [facility] During your visit today, we recorded the following information about you: Blood pressure Weight 152/74 164.2 kg Arleth Lau, PROCEDURES TECH.ESTIMATOR AND DRAFTER SUPERVISOR 06/19/2024 10:05 AM Signed Santa Rahman is [...] is postmenopausal. Informed Consent Consent Obtained: Written [place] Protocol A moment to CARE was completed. [...] Modules accepted: Orders Referring Provider: HUNTER HER [[id number]] Allergies As of Date: 06/19/2024 (No Known Allergies) Date Reviewed: 05/08/2024 Reviewed by: Blanche Sharpe LPN - Fully Assessed Reason for Visit: New Patient [172] Primary Visit Diagnosis:Thickened endometrium [R93.89] Other Visit Diagnoses:Screening for malignant neoplasm of cervix [Z12.4] Endometrial adenocarcinoma (HCC) [C54.1] Order(s):CONSULT TO MINIMALLY INVASIVE GYNECOLOGIC SURGERY [7048354] Order #: [id number]: 1 SURGICAL PATHOLOGY [TND6376] Order #: [id number]. #:[id number] PAP TEST [AHB6648] Order #: [id number]. #:[id number] ENDO BIOPSY [PRO73] Order #: [id number] HIGH RISK HUMAN PAPILLOMA VIRUS (HPV), PCR FOR DETECTION AND GENOTYPING [SQHPVHRT] Reflex Order#: [id number] (Ord#:[id number])Spec. #:[id number] MISMATCH REPAIR PROTEINS BY IHC [TVU0870] Reflex Order#: [id number] (Ord#:[id number])Spec. #:[id number] POLE PYROSEQUENCING [SQPOLE] Reflex Order#: [id number] (Ord#:[id number])Spec. #:[id number] CONSULT TO GYNECOLOGIC/ONCOLOGY [1244580] Reflex Order#: [id number] (Ord#:[id number])Qty: 1 FUTURE Prescriptions as of 06/30/2024 - [...] PMB (postmenopaus (more content not included)... Normal [facility] ENDO BIOPSYon 06-19-2024 [facility] HIGH RISK HUMAN PAPILLOMA TREVON (HPV), PCR FOR DETECTION AND GENOTYPINGon 06-19-2024 HPV 16 Ag Ql (Unsp spec) Not detected Normal Not detected [facility] Comment on above: Order Comment: Speci men Type: FLUID SPECIMENOrdering Facility: [facility] Address: [address] [place] [address] Performed By: #### L [id number], HPVHRT ####[facility]IA [id number] [place] [address] [place] HPV 18 Ag Ql (Unsp spec) Not detected Normal Not detected [facility] Comment on above: Order Comment: Speci men Type: FLUID SPECIMENOrdering Facility: [facility] Address: [address] [place] [address] Performed By: #### L [id number], HPVHRT ####[facility] [id number] [place] [address] [place] HPV 31+33+35+39+45+51+52+ 56+58+59+66+68 DNA VIKTORIA+probe Ql (Cvx) Not detected Normal Not detected [facility] Comment on above: Order Comment: Speci men Type: FLUID SPECIMENOrdering Facility: [facility] Address: [address] [place] [address] Result Comment: High Risk HPV Other Type includes HPV types 31, 33, 35, 39, 45, 51, 52, 56, 58, 59, 66 and 68. Performed By: #### L [id number], HPVHRT ####[facility] LABCLIA [id number] [place] [address] [place] MISMATCH REPAIR PROTEINS BY IHCon 06-19-2024 AP BIOMARKER DISCLAIMER Normal [facility] Comment on above: Order Comment: Speci men Type: TISSUE SPECIMENOrdering Facility: [facility] Address: [address] [place] [address] Result Comment: Celine Mcdaniel Test (LDT) Disclaimer: Performance characteristics of immunohistochemical, immunofluorescent and chromogenic in-situ hybridization tests have been determined by the performing laboratory within [facility]???s Lauri Danie [facility] Pathology and Laboratory Medicine Department ([facility], [facility], [facility], [facility], [facility], or [facility]) in a manner consistent with CLIA requirements. One or more of these tests have not been cleared or approved by the FDA. RT-PLM is regulated under CLIA as qualified to perform high-complexity testing. These tests are used for clinical purposes. They should not be regarded as investigational or for research. Positive and negative controls stain appropriately. Performed By: #### S ####[facility]ORATORYCLIA [id number] [place] [address] [place] [facility] LABCLIA [id number] [place] [address] [place]#### [id number] ####[facility] LABCLIA [id number] [place] [address] [place] AP BLOCK ID A1 Normal [facility] Comment on above: Order Comment: Speci men Type: TISSUE SPECIMENOrdering Facility: [facility] Address: [address] [place] [address] Performed By: #### S ####[facility] [id number] [place] [address] [place] [facility] [id number] [place] [address] [place]#### [id number] ####[facility]CLIA [id number] [place] [address] [place] BIOMARKER INTERPRETATION COMMENT AND REFERENCE RANGE Normal [facility] Comment on above: Order Comment: Speci men Type: TISSUE SPECIMENOrdering Facility: [facility] Address: [address] [place] [address] Result Comment: In[address] expression of MMR [...] patients with metastatic carcinoma, Cornelia et al. ([facility] 2015;372:8995-52) reported that clinical benefit of pembrolizumab, an [...] questions about this result, please call the [facility] at [phone]. Performed By: #### S ####[facility] [id number] [place] [address] [place] [facility] [id number] [place] [address] [place]#### [id number] ####[facility]CLIA [id number] [place] [address] [place] BIOMARKER METHOD Normal [facility] Comment on above: Order Comment: Speci men Type: TISSUE SPECIMENOrdering Facility: [facility] Address: [address] [id number] Result Comment: Immu nohistochemistry was performed on formalin fixed paraffin-embedded tissue using the following clones: MLH1 (clone M1 mouse monoclonal); MSH2 ([id number] mouse monoclonal); and MSH6 (SP93 rabbit monoclonal); followed by ultrasensitive bright field detection (Optiview with amplification) from [[employer], [place]]. PMS2 (EP51 Rabbit monoclonal, [employer] Dial [employer]); followed by ultrasensitive bright field detection ( Rodarte Refine Polymer DAB Detection) from [[employer], [place], [place]]. Performed By: #### S ####[facility]IA [id number] [address] LABCLIA [id number] [address] OF [facility]#### [id number] ####[facility] LABCLIA [id number] [address] STATES OF [facility] CASE NUMBER MMR [id number] Normal [facility] Comment on above: Order Comment: Speci men Type: TISSUE SPECIMENOrdering Facility: [facility] Address: [address] [place] [address] Performed By: #### S ####[facility]CLIA [id number] [address] LABCLIA [id number] [address] [place]#### [id number] ####[facility] LABCLIA [id number] [address] STATES OF [facility] FINAL PERFORMING LAB Normal [facility] Comment on above: Order Comment: Speci men Type: TISSUE SPECIMENOrdering Facility: [facility] Address: [address] [place] [address] Result Comment: Diag nostic interpretation performed at: [facility], [address] [place] [address] CLIA# [id number] [employer] Consultant: Daniel Vasquez MD Electronically signed out by: Lauri Garcia MD Performed By: #### S ####[facility] [id number] [address] LABCLIA [id number] [place] [address] [place]#### [id number] ####[facility] LABCLIA [id number] [place] [address] [place] FIXATIVE Formalin, 10% Neutra l Buffered Normal [facility] Comment on above: Order Comment: Speci men Type: TISSUE SPECIMENOrdering Facility: [facility] Address: [address] [place] [address] Performed By: #### S ####[facility]CLIA [id number] [address] LABCLIA [id number] [place] [address] [place]#### [id number] ####[facility]CLIA [id number] [place] [address] [place] MLH1 IMMUNOHISTOCHEMICAL RESULTS Normal/Intact Nuclear Expression Normal [facility] Comment on above: Order Comment: Speci men Type: TISSUE SPECIMENOrdering Facility: [facility] Address: [address] [place] [address] Performed By: #### S ####[facility]IA [id number] [address] STATES OF [facility] LABCLIA [id number] [place] [address] [place]#### [id number] ####[facility] LABCLIA [id number] [place] [address] [place] MLH1 PROMOTER METHYLATION ASSAY No Normal [facility] Comment on above: Order Comment: Speci men Type: TISSUE SPECIMENOrdering Facility: [facility] Address: [address] [id number] Performed By: #### S ####[facility]CLIA [id number] [address] LABCLIA [id number] [place] [address] [place]#### [id number] ####[facility] LABCLIA [id number] [place] [address] [place] MMR INTERPRETATION Proficient (Microsatellite Stable) Normal [facility] Comment on above: Order Comment: Speci men Type: TISSUE SPECIMENOrdering Facility: [facility] Address: [address] [place] [address] Performed By: #### S ####[facility]ORYIA [id number] [address] OF [facility] LABCLIA [id number] [place] [address] [place]#### [id number] ####[facility] LABCLIA [id number] [place] [address] [place] MSH2 IMMUNOHISTOCHEMICAL RESULTS Normal/Intact Nuclear Expression Normal [facility] Comment on above: Order Comment: Speci men Type: TISSUE SPECIMENOrdering Facility: [facility] Address: [address] [place] [address] Performed By: #### S ####[facility]ORATORYIA [id number] [place] [address] [place] [facility] LABCLIA [id number] [place] [address] [place]#### [id number] ####[facility] LABCLIA [id number] [place] [address] [place] MSH6 IMMUNOHISTOCHEMICAL RESULTS Normal/Intact Nuclear Expression Normal [facility] Comment on above: Order Comment: Speci men Type: TISSUE SPECIMENOrdering Facility: [facility] Address: [address] [place] [address] Performed By: #### S ####[facility]ORYCLIA [id number] [address] LABCLIA [id number] [place] [address] [place]#### [id number] ####[facility] LABCLIA [id number] [place] [address] [place] PMS2 IMMUNOHISTOCHEMICAL RESULTS Normal/Intact Nuclear Expression Normal [facility] Comment on above: Order Comment: Speci men Type: TISSUE SPECIMENOrdering Facility: [facility] Address: [address] [place] [address] Performed By: #### S ####[facility] [id number] [address] LABCLIA [id number] [place] [address] [place]#### [id number] ####[facility] LABCLIA [id number] [place] [address] [place] TUMOR TYPE MMR Primary Uterine Endometrial Adenocarcinoma Normal [facility] Comment on above: Order Comment: Speci men Type: TISSUE SPECIMENOrdering Facility: [facility] Address: [address] [place] [address] Performed By: #### S ####[facility]ORATORYIA [id number] [address] LABCLIA [id number] [place] [address] [place]#### [id number] ####[facility] LABCLIA [id number] [place] [address] [place] PAP TESTon 06-19-2024 ADEQUACY Satisfactory for interpretation. Normal [facility] Comment on above: Order Comment: Speci men Type: FLUID SPECIMENOrdering Facility: [facility] Address: [address] [place] [address] Performed By: #### L [id number], HPVHRT ####[facility] LABCLIA [id number] [place] [address] [place] CASE REPORT Normal [facility] Comment on above: Order Comment: Speci men Type: FLUID SPECIMENOrdering Facility: [facility] Address: [address] [place] [address] Result Comment: Gyne cologic Cytology Report Case: [id number] Authorizing Provider: Arleth Lau, Collected: 06/19/2024 10:28 AM PROCEDURES TECH.ESTIMATOR AND DRAFTER SUPERVISOR Ordering Location: Gynecology Received: 06/19/2024 12:39 PM First Screen: Analia Anaya, CT, ASCP Specimen: Pap Test, ThinPrep, Cervix Performed By: #### L [id number], HPVHRT ####[facility] LABCLIA [id number] [place] [address] [place] Order Comment: Speci men Type: TISSUE SPECIMENOrdering Facility: [facility] Address: [address] [place] [address] Result Comment: Surg ica Pathology Report Case: [id number] Authorizing Provider: Arleth Lau, Collected: 06/19/2024 10:28 AM PROCEDURES TECH.ESTIMATOR AND DRAFTER SUPERVISOR Ordering Location: Gynecology Received: 06/19/2024 01:16 PM Pathologist: Devyn Byrd MD Specimen: Endometrium, Biopsy Performed By: #### S ####[facility]ORYCLIA [id number] [place] [address] [place] [facility] [id number] [place] [address] [place]#### [id number] ####[facility] LABCLIA [id number] [place] [address] [place] CLINICAL HISTORY, CYTOLOGY, LINE APPLIANCE ASSEMBLER Menopausal Normal [facility] Comment on above: Order Comment: Speci men Type: FLUID SPECIMENOrdering Facility: [facility] Address: [address] [place] [address] Performed By: #### L [id number], HPVHRT ####[facility] LABCLIA [id number] [address] [address] [place] CYTOLOGY PAP OTHER INT Fungal organisms morphologically consistent with Thanh species. Normal [facility] Comment on above: Order Comment: Speci men Type: FLUID SPECIMENOrdering Facility: [facility] Address: [address] [id number] Performed By: #### L [id number], HPVHRT ####[facility] LABCLIA [id number] [address] [id number] [facility] [place] FINAL PERFORMING LAB Normal [facility] Comment on above: Order Comment: Speci men Type: FLUID SPECIMENOrdering Facility: [facility] Address: [address] [place], [place] [address] Result Comment: Tech nical component, resident surgeon screening performed at [facility], [address] [place] [address] CLIA# [id number] Diagnostic interpretation performed at [facility], [address] [place] [address] [place] [address] CLIA# [id number] [employer] Consultant: Daniel Vasquez M.D. Performed By: #### L [id number], HPVHRT ####[facility] [facility] [id number] [place] [id number] [place] Order Comment: Speci men Type: TISSUE SPECIMENOrdering Facility: [facility] Address: [address] [place] [address] Result Comment: Diag nostic interpretation performed at [facility], [address] [place] [address] CLIA# [id number] [employer] Consultant: Devyn Byrd M.D. Performed By: #### S ####[facility]ORYCLIA [id number] [place] [id number] [place] AMERICAKETTER[facility] LABCLIA [id number] [place] [address] [place]#### [id number] ####[facility] LABCLIA [id number] [place] [address] [place] INTERPRETATION, CYTOLOGY, LINE APPLIANCE ASSEMBLER Normal [facility] Comment on above: Order Comment: Speci men Type: FLUID SPECIMENOrdering Facility: [facility] Address: [address] [place] [address] Result Comment: Nega tive for intraepithelial lesion or malignancy. Performed By: #### L [id number], HPVHRT ####[facility] LABCLIA [id number] [place] [address] [place] PAP DISCLAIMER COMMENT The Pap Smear is a screening test for cervical cancer. False negative results occur with all screening tests, emphasizing the need for rescreening at recommended intervals, and clinical correlation. Normal [facility] Comment on above: Order Comment: Speci men Type: FLUID SPECIMENOrdering Facility: [facility] Address: [address] [place] [address] Performed By: #### L [id number], HPVHRT ####[facility] LABCLIA [id number] [place] [address] [place] PAP JEWEL BEARING MAKER COMMENT This specimen has be en analyzed by the ThinPrep Imaging System, an automated imaging and review system, which assists the laboratory in evaluating cells on ThinPrep Pap tests. Following automated imaging, selected toro from every slide are reviewed by a resident surgeon. Normal [facility] Comment on above: Order Comment: Speci men Type: FLUID SPECIMENOrdering Facility: [facility] Address: [address] [place] [address] Performed By: #### L [id number], HPVHRT ####[facility] LABCLIA [id number] [address] [place] [address] [place] POLE PYROSEQUENCINGon 2023 POLE PYROSEQUENCING RESULT Normal [facility] Comment on above: Order Comment: Speci men Type: TISSUE SPECIMENOrdering Facility: [facility] Address: [address] [facility] [place] [address] Result Comment: POLE Pyrosequencing Laboratory Accession Number: [id number] Case #: [id number] Part ID: N/A Sample Type: FFPET % [...] pyrosequencing of the amplicons using the [employer] Q48 instrument (Qiagen, Crispin, please see Evaluated POLE [...] mutations in cancer. Nicole Rev Cancer. 2016 Feb;16(2):71-81. 2) Marybeth K, et al. Molecular profiling and sequential somatic mutation shift in hypermutator tumours harbouring POLE mutations. Sci Rep. 2018 Jan 7;8(1):8700. 3) Gaurav White, et al. Somatic POLE exonuclease domain mutations are early events in sporadic endometrial and colorectal carcinogenesis, determining driver's license examiner mutational landscape, clonal neoantigen burden and immune response. J Pathol. 2018 Feb;245(3):283-296. 4) Godfrey C, et al. Immune profiling of microsatellite instability-high and polymerase epsilon (POLE)-mutated metastatic colorectal tumors identifies predictors of response to anti-PD-1 therapy. J Gastrointest Oncol. 2018 Kike;9(3):404-415. 5) Tristan US, et al. POLE Mutation Spectra Are Shaped by the Mutant Allele Identity, Its Abundance, and Mismatch Repair Status. Mol Cell. 202;78(6). 6) Gertrude James et al. Interpretation of somatic POLE mutations in endometrial carcinoma. J Pathol. 202;250(3):323-335. 7) Sheri YOri et al. POLE/POLD1 mutation in non-exonuclease domain matter (more content not included)... Performed By: #### P OLE ####[facility]ALSCLIA [id number] [address] STATES OF [facility] SURGICAL PATHOLOGYon 10-24-2 024 CLINICAL HISTORY complex hyperplasia in past Normal [facility] Comment on above: Order Comment: Speci men Type: TISSUE SPECIMENOrdering Facility: [facility] Address: [address] [place] [address] Performed By: #### S ####[facility]ORYIA [id number] [address] STATES OF [facility] LABCLIA [id number] [place] [address] [place]#### [id number] ####[facility] LABCLIA [id number] [address] STATES OF [facility] COMMENT Normal [facility] Comment on above: Order Comment: Speci men Type: TISSUE SPECIMENOrdering Facility: [facility] Address: [address] [place] [address] Result Comment: The following immunohistochemical stains with appropriate controls were performed and the results support the interpretation above: p53 - wild-type staining pattern; ER - diffuse positivity; OH - patchy positivity; Napsin A - nonspecific [...] been determined by the performing laboratory within [facility]???s Lauri Echols Pathology and Laboratory Medicine Department ([facility], [facility], [facility], [facility], [facility], or [facility]) in a manner consistent with CLIA requirements. One or more of these tests have not been cleared or approved by the FDA. RT-PLM is regulated under CLIA as qualified to perform high-complexity testing. These tests are used for clinical purposes. They should not be regarded as investigational or for research. Positive and negative controls stain appropriately. Performed By: #### S ####[facility]ORYCLIA [id number] [address] LABCLIA [id number] [address] STATES [facility]#### [id number] ####[facility] LABIA [id number] [address] STATES [facility] FINAL DIAGNOSIS Normal [facility] Comment on above: Order Comment: Speci men Type: TISSUE SPECIMENOrdering Facility: [facility] Address: [address] [place] [address] Result Comment: Endo metrium, biopsy: - Endometrial endometrioid adenocarcinoma with mucinous differentiation, FIGO grade 2 (see comment). LIGIA 06/27/2024 Performed By: #### S ####[facility]ORATORYCLIA [id number] [address] LABCLIA [id number] [address] AVENUEDESK [address]#### [id number] ####[facility] LABCLIA [id number] [address] GROSS DESCRIPTION Normal [facility] Comment on above: Order Comment: Speci men Type: TISSUE SPECIMENOrdering Facility: [facility] Address: [address] [place] [address] Result Comment: A. E ndometrium, Biopsy Received in formalin are multiple wells-white to brown, soft feathery segments of tissue admixed with mucinous material aggregating to 2.8 x 2.7 x 0.2 cm. Totally submitted in one cassette. DB June 19, 2024 2:36 PM [place] [address] Performed By: #### S ####[facility]ORATORYCLIA [id number] [address] LABCLIA [id number] [address]#### [id number] ####[facility] LABCLIA [id number] [address] [facility]-20[facility] SANTA RAHMAN ([id number]) 1955 F Date Time Provider Department 05/21/24 HUNTER HER During your visit today, we recorded the following information about you: Hunter Her MD 05/21/2024 9:58 AM Signed Please contact patient and relay referral to [facility] for evaluation of thickened endometrium. We are not able to accomplish this in our office as we were unable to visualize the cervix. MD Turner Bhatti, Shobha, RN 05/21/2024 11:11 AM Signed Attempted to contact patient. No answer and unable to leave a voicemail. Mailbox is full. Shobha Tompkins, RN Elizabeth Crow RN 05/28/2024 4:58 PM Signed Patient informed and phone number given to patient. Allergies As of Date: 05/21/2024 (No Known Allergies) Date Reviewed: 05/08/2024 Reviewed by: Blanche Sharpe LPN - Fully Assessed Reason for Visit: Results [95] Primary Visit Diagnosis:Thickened endometrium [R93.89] Order(s):CONSULT TO MINIMALLY INVASIVE GYNECOLOGIC SURGERY [1455769] Order #: [id number]: 1 FUTURE Prescriptions as of 05/28/2024 - [...] Status:Closed by HUNTER HER on 05/21/24 [facility] 05-16-2024 [facility] 05-15-2024 Radiology Study observation (narrative) [facility] CNPN Telephone (OBGYWM) ----- SANTA RAHMAN ([id number]) 1955 F Date Time Provider Department 05/13/24 HUNTER HER During your visit today, we recorded the following information about you: Marianela Diaz RN 05/13/2024 10:54 AM Signed Received records from [facility]. Placed in AT's mailbox to review when he returns tomorrow to office. Marianela Diaz RN Allergies As of Date: 05/13/2024 (No Known Allergies) Date Reviewed: 05/08/2024 Reviewed by: Blanche Sharpe LPN - Fully Assessed Reason for Visit: Received Outside Medical Records [6656] Prescriptions as of 05/13/2024 - albuterol HFA [...] Encounter Status:Closed by MARIANELA DIAZ on 05/13/24 [facility] CNOVon 05-08-2024 CNOV Office Visit (OBGYWM ) ----- SANTA RAHMAN ([id number]) 1955 F Date Time Provider Department 05/08/24 10:30 AM HUNTER HER During your visit today, we recorded the following information about you: Blood pressure Weight Height 152/88 164.2 kg 1.638 m Blanche Sharpe LPN 05/08/2024 11:55 AM Signed Recruiter Coordinator offered: Patient accepts, visit chaperoned by Maria Guadalupe Sharpe. The sensitive examination was discussed with the Patient or Patient's Authorized Hyster Machine Operator. As applicable, any other physician, advance practice provider, medical student, or other health professional student that will be observing or involved in the sensitive examination for educational or training purposes was discussed with the Patient or Authorized Hyster Machine Operator. The Patient or Authorized Hyster Machine Operator has agreed to proceed with the sensitive examination. (Sensitive examination includes inspection and/or palpation of the breasts, pelvis, prostate and anorectal regions) Santa is a 68 year old who presents today for an endometrial biopsy for postmenopausal bleeding with a hx of complex endometrial hyperplasia identified on [facility] on 03/25/12 test: n/a UNIVERSAL PROTOCOL / [...] Fully Assessed Reason for Visit: Endometrial Biopsy [7500] Primary Visit Diagnosis:Encounter for screening for malignant neoplasm of cervix [Z12.4] Other Visit Diagnosis:Postmenopausal bleeding [N95.0] Order(s):PELVIC US WHI [[id number]] Order #: [id number]: 1 FUTURE Prescriptions as of 05/08/2024 - [...] normal menstrua (more content not included)... Normal [facility] CBC, PLATELETS & MANUAL DIFF (89747)Ordered By: Paper Baler on 08-16-2022 Basophils (Bld) [#/Vol] 0.1 10*3/uL Normal 0.0-0.2 [facility]; [facility] Work Phone: Comment on above: PATIENT WAS FASTINGP ERFORMED BY: CB [facility] [id number] [address]Dublin [place] [id number]; wellness labs Basophils/100 WBC (Bld) 1 % Normal [facility]; [facility] Work Phone: Comment on above: PATIENT WAS FASTINGP ERFORMED BY: CB [facility] [id number] [address]z RoadDublin [place] [id number]; wellness labs Eosinophils (Bld) [#/Vol] 0.2 10*3/uL Normal 0.0-0.4 [facility]; [facility] Work Phone: Comment on above: PATIENT WAS FASTINGP ERFORMED BY: CB [facility] Tdxgoy9840 [address] RoadDublin [place] [id number]; wellness labs Eosinophils/100 WBC (Bld) 3 % Normal [facility]; [facility] Work Phone: Comment on above: PATIENT WAS FASTINGP ERFORMED BY: CB [facility] Lsaxjn3228 [address] RoadDublin [place] [id number]; wellness [facility] Erythrocyte distribution width (RBC) [Ratio] 15.1 % Normal 11.7-15.4 [facility]; [facility] Work Phone: Comment on above: PATIENT WAS FASTINGP ERFORMED BY: CB [facility] Eedcck6639 [address] RoadDublin [place] [id number]; wellness labs Hematocrit (Bld) [Volume fraction] 45.7 % Normal 34.0-46.6 [facility]; [facility] Work Phone: Comment on above: PATIENT WAS FASTINGP ERFORMED BY: CB [facility] Donkim9761 [address] RoadDublin [place] [id number]; wellness [facility] Hemoglobin (Bld) [Mass/Vol] 14.9 g/dL Normal 11.1-15.9 [facility]; [facility] Work Phone: Comment on above: PATIENT WAS FASTINGP ERFORMED BY: [facility] Ngoyfx7464 [facility] [id number]; wellness labs Immature granulocytes (Bld) [#/Vol] 0.0 10*3/uL Normal 0.0-0.1 [facility]; [facility] Work Phone: Comment on above: PATIENT WAS FASTINGP ERFORMED BY: LabAut[place] [id number] [facility] [id number]; wellness labs Immature granulocytes/100 WBC (Bld) 0 % Normal [facility]; [facility] Work Phone: Comment on above: PATIENT WAS FASTINGP ERFORMED BY: [address] [id number]; wellness labs Lymphocytes (Bld) [#/Vol] 2.0 10*3/uL Normal 0.7-3.1 [facility]; [facility] Work Phone: Comment on above: PATIENT WAS FASTINGP ERFORMED BY: [place] [id number] [facility] [id number]; wellness labs Lymphocytes/100 WBC (Bld) 28 % Normal [facility]; [facility] Work Phone: Comment on above: PATIENT WAS FASTINGP ERFORMED BY: [place] [id number] [facility] [id number]; wellness labs MCH (RBC) [Entitic mass] 27.5 pg Normal 26.6-33.0 [facility]; [facility] Work Phone: Comment on above: PATIENT WAS FASTINGP ERFORMED BY: [place] [id number] [facility] [id number]; wellness labs MCHC (RBC) [Mass/Vol] 32.6 g/dL Normal 31.5-35.7 [facility] prehensive Internal Medicine; [facility] Work Phone: Comment on above: PATIENT WAS FASTINGP ERFORMED BY: CB [facility] [id number] [address] RoadDublin [place] [id number]; wellness labs MCV (RBC) [Entitic vol] 85 fL Normal 79-97 [facility]; [facility] Work Phone: Comment on above: PATIENT WAS FASTINGP ERFORMED BY: CB [facility] Kkzwrc9836 [address] RoadDublin [place] [id number]; wellness labs Monocytes (Bld) [#/Vol] 0.6 10*3/uL Normal 0.1-0.9 [facility]; [facility] Work Phone: Comment on above: PATIENT WAS FASTINGP ERFORMED BY: CB [facility] Nhepso4071 [address] RoadDublin [place] [id number]; wellness labs Monocytes/100 WBC (Bld) 8 % Normal [facility]; [facility] Work Phone: Comment on above: PATIENT WAS FASTINGP ERFORMED BY: CB [facility] Vmmhgi7142 [address] RoadDublin [place] [id number]; wellness labs Neutrophils (Bld) [#/Vol] 4.1 10*3/uL Normal 1.4-7.0 [facility]; [facility] Work Phone: Comment on above: PATIENT WAS FASTINGP ERFORMED BY: CB [facility] Bnfcsq4541 [address] RoadDublin [place] [id number]; wellness labs Neutrophils/100 WBC (Bld) 60 % Normal [facility]; [facility] Work Phone: Comment on above: PATIENT WAS FASTINGP ERFORMED BY: CB [facility] Vykbcx4223 [address] RoadDublin [place] [id number]; wellness labs Platelets (Bld) [#/Vol] 315 10*3/uL Normal 150-450 [facility]; [facility] Work Phone: Comment on above: PATIENT WAS FASTINGP ERFORMED BY: CB [facility] Sbzbti8947 [address] RoadDublin [place] [id number]; wellness labs RBC (Bld) [#/Vol] 5.41 10*6/uL Abnormal 3.77-5.[address] [facility] Internal [facility]; [facility] Work Phone: Comment on above: PATIENT WAS FASTINGP ERFORMED BY: CB [facility] Idxcrp4453 [address] RoadDublin [place] [id number]; wellness labs WBC (Bld) [#/Vol] 6.9 10*3/uL Normal 3.4-10.8 [facility]; [facility] Work Phone: Comment on above: PATIENT WAS FASTINGP ERFORMED BY: CB [facility] Gxlrzn2401 [address] RoadDublin [place] [id number]; wellness labs METABOLIC PANEL, COMPREHENSI VE ([id number])Ordered By: Paper Baler on 08-16-2022 Albumin [Mass/Vol] 4.5 g/dL Normal 3.8-4.8 [facility]; [facility] Work Phone: Comment on above: PATIENT WAS FASTINGP ERFORMED BY: CB [facility] Lgxewm9364 [address] RoadDublin [place] [id number] Albumin/Globulin [Mass ratio] 1.7 {ratio} Normal 1.2-2.2 [facility]; [facility] Work Phone: Comment on above: PATIENT WAS FASTINGP ERFORMED BY: CB [facility] Dnrzhz5758 [address] RoadDublin [place] [id number] ALP [Catalytic activity/Vol] 80 U/L Normal 44-121 [facility]; [facility] Work Phone: Comment on above: PATIENT WAS FASTINGP ERFORMED BY: CB [facility] Djmevh6648 [address] RoadDublin [place] [id number] ALT [Catalytic activity/Vol] 33 U/L Abnormal 0-32 [facility]; [facility] Work Phone: Comment on above: PATIENT WAS FASTINGP ERFORMED BY: CB [facility] Ngjzlp5163 [address] RoadDublin [place] [id number] AST [Catalytic activity/Vol] 14 U/L Normal 0-40 [facility]; [facility] Work Phone: Comment on above: PATIENT WAS FASTINGP ERFORMED BY: [facility] Atobpd7977 [address] RoadDublin [place] [id number] Bilirubin [Mass/Vol] 0.4 mg/dL Normal 0.0-1.2 Comp rehensive Internal Medicine; [facility] Work Phone: Comment on above: PATIENT WAS FASTINGP ERFORMED BY: [facility] Bjlioe8225 [address] RoadDublin [place] [id number] Calcium [Mass/Vol] 9.7 mg/dL Normal 8.7-10.3 [facility]; [facility] Work Phone: Comment on above: PATIENT WAS FASTINGP ERFORMED BY: [facility] Ksvqmo5817 [address] RoadDublin [place] [id number] Chloride [Moles/Vol] 104 mmol/L Normal 96-106 [facility] rehensive Internal Medicine; [facility] Work Phone: Comment on above: PATIENT WAS FASTINGP ERFORMED BY: [facility] Aidgbq6720 [address] RoadDublin [place] [id number] CO2 [Moles/Vol] 24 mmol/L Normal 20-29 [facility]; [facility] Work Phone: Comment on above: PATIENT WAS FASTINGP ERFORMED BY: [facility] Kspdmy2372 [address] RoadDublin [place] [id number] Creatinine [Mass/Vol] 0.51 mg/dL Abnormal 0.57-1.00 [facility]; [facility] Work Phone: Comment on above: PATIENT WAS FASTINGP ERFORMED BY: [facility] Bvxwrx9855 [address] RoadDublin [place] [id number] GFR/1.73 sq M.predicted among non-blacks MDRD (S/P/Bld) [Vol rate/Area] 104 mL/min/{1.73_m2} Normal Comprehensi ve Internal Medicine; [facility] Work Phone: Comment on above: PATIENT WAS FASTINGP ERFORMED BY: [facility] Iuxtbc9455 [address] RoadDublin [place] [id number] Globulin (S) [Mass/Vol] 2.6 g/dL Normal 1.5-4.5 [facility]; [facility] Work Phone: Comment on above: PATIENT WAS FASTINGP ERFORMED BY: CHRIS Labcotrudi Ekifxr4175 [address] RoadDublin [place] [id number] Glucose [Mass/Vol] 97 mg/dL Normal 70-99 [facility]; [facility] Work Phone: Comment on above: PATIENT WAS FASTINGP ERFORMED BY: CHRIS [facility] Yjzggw9646 [address] RoadDublin [place] [id number] Potassium [Moles/Vol] 4.1 mmol/L Normal 3.5-5.2 [facility] Internal [facility]; [facility] Work Phone: Comment on above: PATIENT WAS FASTINGP ERFORMED BY: CHRIS [facility] Roinjd0576 [address] RoadDublin [place] [id number] Protein [Mass/Vol] 7.1 g/dL Normal 6.0-8.5 [facility]; [facility] Work Phone: Comment on above: PATIENT WAS FASTINGP ERFORMED BY: CHRIS [facility] Zpjdje1262 [address] RoadDublin [place] [id number] Sodium [Moles/Vol] 142 mmol/L Normal 134-144 [facility]; [facility] Work Phone: Comment on above: PATIENT WAS FASTINGP ERFORMED BY: CHRIS [facility] Kkefwn9399 [address] RoadDublin [place] [id number] Urea nitrogen [Mass/Vol] 15 mg/dL Normal 8-27 [facility]; [facility] Work Phone: Comment on above: PATIENT WAS FASTINGP ERFORMED BY: CHRIS [facility] [id number] [address] RoadDublin [place] [id number] Urea nitrogen/Creatinine [Mass ratio] 29 mg/mg Abnormal 12-28 [facility]; [facility] Work Phone: Comment on above: PATIENT WAS FASTINGP ERFORMED BY: CHRIS [facility] Qcpsdm4729 [address] RoadDublin [place] [id number] HgA1C , Office ([id number])Ordere d By: Wanda Puente on 07-25-2022 HbA1c (Bld) [Mass fraction] 5.6 % Normal 4.6 - 7.1 [facility]; [facility] Work [...] SIGNS: T PRBP SpO2O2(LPM) %FiO2 Method 06-Apr-2022 11:13:[id number]/96 95 MDM MDM/ED COURSE: This note was [...] in urine, malaise, lethargy, nausea/vomiting, bloating, abdominal distention/"pain," change in bowel habits, and vaginal symptoms. Pain scale for flank: 3-4/10 - reports just a little uncomfortable" and is constant - not particularly exacerbated or alleviated by any factors. Reports has had several episodes of urinary incontinence d/t the degree of urgency/frequency she is having, at times. Denies colicky pain. Patient viral has had similar symptoms in the past and was diagnosed with a UTI and kidney infection. Has been taking Tylenol PRN with some relief; has not tried any other OTC medications for her symptoms. Has listed intolerance to Sulfa - reports caused irregular menses "years ago;" no other known drug allergies or intolerances. [...] Musculoskeletal: Grossly normal; appropriate for age. Integumentary: Lucky, warm, dry, and intact. No rashes or [...] caution. Instru (more content not included)... Normal [facility] URINE CULTURE,BACTERIALon URINE CULTURE,BACTERIAL PATIENT: SANTA RAHMAN LOCATION: [address]#: [id number] : 57 AGE: SEX: F ORDERED BY: JUAN CARLOS RAINEY SOURCE: URINE COLLECTED: 04/06/22 12:14 ANTIBIOTICS AT JOAN.: RECEIVED : 04/07/22 00:01 SITE: Clean Catch/Voided R E S U L T S URINE CULTURE,BACTERIAL FINAL 04/07/22 16:43 NO SIGNIFICANT GROWTH. Normal [facility] Comment on above: Performed By: #### U [facility] #### [facility] [address] [place] [address] CALCIFIDIOL (22264) VIT D 25 Ordered By: Paper Baler on 11-07-2021 25-hydroxyvitamin D [Mass/Vol] 31.6 ng/mL Normal 30.0-100.0 [facility]; [facility] Work Phone: Comment on above: Vitamin D deficiency has been defined by the [place] of[place]icine and an Endocrine Society practice guideline as alevel of serum 25-OH vitamin D less than 20 ng/mL (1,2).The Endocrine Society went on to further define vitamin Dinsufficiency as a level between 21 and 29 ng/mL (2).1. IOM ([place] of [place]). 2010. Dietary reference intakes for calcium and D. [place]: The National Academies Press.2. Amara MF, Pat NC, Enrike MICHAELS, et al. Evaluation, treatment, and prevention of vitamin D deficiency: an Endocrine Society clinical practice guideline. JCEM. 2010; 96(7):1911-30. PATIENT WAS FASTINGP ERFORMED BY: [facility] Qehbya9617 [address] RoadDublin [place] [id number] CBC with auto diff ([id number])Or dered By: Paper Baler on 11-07-2021 Basophils (Bld) [#/Vol] 0.1 10*3/uL Normal 0.0-0.2 [facility]; [facility] Work Phone: Comment on above: PATIENT WAS FASTINGP ERFORMED BY: [facility] Iqlhgu5708 [address] RoadDublin [place] [id number] Basophils/100 WBC (Bld) 1 % Normal [facility]; [facility] Work Phone: Comment on above: PATIENT WAS FASTINGP ERFORMED BY: [facility] Vbashm1382 [address] RoadDublin [place] [id number] Eosinophils (Bld) [#/Vol] 0.2 10*3/uL Normal 0.0-0.4 [facility]; [facility] Work Phone: Comment on above: PATIENT WAS FASTINGP ERFORMED BY: [facility] Ybfjib2760 [address] RoadDublin [place] [id number] Eosinophils/100 WBC (Bld) 3 % Normal [facility]; [facility] Work Phone: Comment on above: PATIENT WAS FASTINGP ERFORMED BY: [facility] Eoxliu2046 [address]Dublin [place] [id number] Erythrocyte distribution width (RBC) [Ratio] 14.9 % Normal 11.7-15.4 [facility]; [facility] Work Phone: Comment on above: PATIENT WAS FASTINGP ERFORMED BY: [facility] Dtovab3983 [address] RoadDublin [place] [id number] Hematocrit (Bld) [Volume fraction] 46.2 % Normal 34.0-46.6 [facility]; [facility] Work Phone: Comment on above: PATIENT WAS FASTINGP ERFORMED BY: [facility] Odbavh5242 [address] RoadDublin [place] [id number] Hemoglobin (Bld) [Mass/Vol] 15.2 g/dL Normal 11.1-15.9 [facility]; [facility] Work Phone: Comment on above: PATIENT WAS FASTINGP ERFORMED BY: [facility] Kzcwqr9937 [address] RoadDublin [place] [id number] Immature granulocytes (Bld) [#/Vol] 0.0 10*3/uL Normal 0.0-0.1 [facility]; [facility] Work Phone: Comment on above: PATIENT WAS FASTINGP ERFORMED BY: Tierney Guybii5064 [address] RoadDublin [place] [id number] Immature granulocytes/100 WBC (Bld) 0 % Normal [facility]; [facility] Work Phone: Comment on above: PATIENT WAS FASTINGP ERFORMED BY: [facility]6[address]Dublin [place] [id number] Lymphocytes (Bld) [#/Vol] 2.0 10*3/uL Normal 0.7-3.1 [facility]; [facility] Work Phone: Comment on above: PATIENT WAS FASTINGP ERFORMED BY: [facility]Dublin [place] [id number] Lymphocytes/100 WBC (Bld) 26 % Normal [facility]; [facility] Work Phone: Comment on above: PATIENT WAS FASTINGP ERFORMED BY: [facility] Qedctp7245 [address] RoadDublin [place] [id number] MCH (RBC) [Entitic mass] 27.5 pg Normal 26.6-33.0 [facility]; [facility] Work Phone: Comment on above: PATIENT WAS FASTINGP ERFORMED BY: [facility]Dublin [place] [id number] MCHC (RBC) [Mass/Vol] 32.9 g/dL Normal 31.5-35.7 [facility] prehensive Internal Medicine; [facility] Work Phone: Comment on above: PATIENT WAS FASTINGP ERFORMED BY: CB [facility] Cinlcl8343 [address] RoadDublin [place] [id number] MCV (RBC) [Entitic vol] 84 fL Normal 79-97 [facility]; [facility] Work Phone: Comment on above: PATIENT WAS FASTINGP ERFORMED BY: CB [facility] Vqdfod1669 [address] RoadDublin [place] [id number] Monocytes (Bld) [#/Vol] 0.7 10*3/uL Normal 0.1-0.9 [facility]; [facility] Work Phone: Comment on above: PATIENT WAS FASTINGP ERFORMED BY: CB [facility] Wpjddn3068 [address] RoadDublin [place] [id number] Monocytes/100 WBC (Bld) 9 % Normal [facility]; [facility] Work Phone: Comment on above: PATIENT WAS FASTINGP ERFORMED BY: CB [facility] Sqlpdu8574 [address] RoadDublin [place] [id number] Neutrophils (Bld) [#/Vol] 4.9 10*3/uL Normal 1.4-7.0 [facility]; [facility] Work Phone: Comment on above: PATIENT WAS FASTINGP ERFORMED BY: CB [facility] Fdhkyk0541 [address] RoadDublin [place] [id number] Neutrophils/100 WBC (Bld) 61 % Normal [facility]; [facility] Work Phone: Comment on above: PATIENT WAS FASTINGP ERFORMED BY: CB [facility] Wdrrem2723 [address] RoadDublin [place] [id number] Platelets (Bld) [#/Vol] 306 10*3/uL Normal 150-450 [facility]; [facility] Work Phone: Comment on above: PATIENT WAS FASTINGP ERFORMED BY: CB [facility] Aotfdk7274 [address] RoadDublin [place] [id number] RBC (Bld) [#/Vol] 5.53 10*6/uL Abnormal 3.77-5.28 [facility]erens[facility]; [facility] Work Phone: Comment on above: PATIENT WAS FASTINGP ERFORMED BY: CHRIS Labguerrero Sanchez6370 [address]Dublin [place] [id number] WBC (Bld) [#/Vol] 7.9 10*3/uL Normal 3.4-10.8 [facility]; [facility] Work Phone: Comment on above: PATIENT WAS FASTINGP ERFORMED BY: CHRIS Labcotrudi BatesXpuhyx2557 Game[address] RoadDublin [place] [id number] LIPID PANEL (57713)Ordered B y: Paper Baler on 11-07-2021 Cholesterol [Mass/Vol] 218 mg/dL Abnormal 100-199 [facility]; [facility] Work Phone: Comment on above: PATIENT WAS FASTINGP ERFORMED BY: CHRIS Tierneytrudi BatesKyiolh9218 [address] RoadDublin [place] [id number] Cholesterol in HDL [Mass/Vol] 50 mg/dL Normal [facility]; [facility] Work Phone: Comment on above: PATIENT WAS FASTINGP ERFORMED BY: CHRIS Tierneytrudi Yzeeax9502 [address] RoadDublin [place] [id number] Triglyceride [Mass/Vol] 176 mg/dL Abnormal 0-149 [facility]; [facility] Work Phone: Comment on above: PATIENT WAS FASTINGP ERFORMED BY: CHRIS Labpattrudi Rnhoda2289 [address] RoadDublin [place] [id number] LIPID PANEL (10814) 31 mg/dL Normal 5-40 [facility]erens[facility]; [facility] Work Phone: Comment on above: PATIENT WAS FASTINGP ERFORMED BY: CHRIS [facility] Osnhci2114 [address] RoadDublin [place] [id number] LIPID PANEL (55240) 137 mg/dL Abnormal 0-99 Compr ensive Internal Medicine; [facility] Work Phone: Comment on above: PATIENT WAS FASTINGP ERFORMED BY: CHRIS [facility] Fjhcdn0269 [address] RoadDublin [place] [id number] LIPID PANEL (26717) 2.7 {ratio} Normal 0.0-3.2 Comp [facility] centerensive [facility]; [facility] Work Phone: Comment on above: LDL/HDL Ratio Men Wo men 1/2 Avg.Risk 1.0 1.5 Avg.Risk 3.6 3.2 2X Avg.Risk 6.2 5.0 3X Avg.Risk 8.0 6.1 PATIENT WAS FASTINGP ERFORMED BY: CHRIS Sanchez6370 [facility] [id number] METABOLIC PANEL, COMPREHENSI VE (09964)Ordered By: Paper Baler on 11-07-2021 Albumin [Mass/Vol] 4.5 g/dL Normal 3.8-4.8 [facility]; [facility] Work Phone: Comment on above: PATIENT WAS FASTINGP ERFORMED BY: CHRIS Sanchez6370 [facility] [id number] Albumin/Globulin [Mass ratio] 1.6 {ratio} Normal 1.2-2.2 [facility]; [facility] Work Phone: Comment on above: PATIENT WAS FASTINGP ERFORMED BY: CHRIS Sanchez6370 [facility] [id number] ALP [Catalytic activity/Vol] 83 U/L Normal 44-121 [facility]; [facility] Work Phone: Comment on above: PATIENT WAS FASTINGP ERFORMED BY: CHRIS Sanchez6370 [facility] [id number] ALT [Catalytic activity/Vol] 31 U/L Normal 0-32 [facility]; [facility] Work Phone: Comment on above: PATIENT WAS FASTINGP ERFORMED BY: CHRIS Labguerrero BatesGhfqbu3548 [facility] [id number] AST [Catalytic activity/Vol] 16 U/L Normal 0-40 [facility]; [facility] Work Phone: Comment on above: PATIENT WAS FASTINGP ERFORMED BY: CHRIS Labguerreor BatesTjjjab4917 [facility] Centerblin [place] [id number] Bilirubin [Mass/Vol] 0.5 mg/dL Normal 0.0-1.2 Comp rehensive Internal Medicine; [facility] Work Phone: Comment on above: PATIENT WAS FASTINGP ERFORMED BY: CHRIS [facility] Gpybak6424 Game[address] Roadblin [place] [id number] Calcium [Mass/Vol] 10.0 mg/dL Normal 8.7-10.3 [facility]; [facility] Work Phone: Comment on above: PATIENT WAS FASTINGP ERFORMED BY: [facility] Vhxuez8217 [address] RoadFormerly [facility] Centerin [place] [id number] Chloride [Moles/Vol] 101 mmol/L Normal 96-106 [facility] rehensive Internal Medicine; [facility] Work Phone: Comment on above: PATIENT WAS FASTINGP ERFORMED BY: CHRIS Lab[facility] Ztyayl6244 [address] [facility] [id number] CO2 [Moles/Vol] 25 mmol/L Normal 20-29 Comprehen [facility] Internal [facility]; [facility] Work Phone: Comment on above: PATIENT WAS FASTINGP ERFORMED BY: CHRIS [facility] Qztvak39[address] [facility] [id number] Creatinine [Mass/Vol] 0.51 mg/dL Abnormal 0.57-1.00 [facility]; [facility] Work Phone: Comment on above: PATIENT WAS FASTINGP ERFORMED BY: [facility] Gnkdkt9[address] [facility]in [place] [id number] GFR/1.73 sq M.predicted among non-blacks MDRD (S/P/Bld) [Vol rate/Area] 104 mL/min/{1.73_m2} Normal Comprehensi ve Internal Medicine; [facility] Work Phone: Comment on above: PATIENT WAS FASTINGP ERFORMED BY: CHRIS [facility] Yviuai[address] [facility]in [place] [id number] Globulin (S) [Mass/Vol] 2.9 g/dL Normal 1.5-4.5 [facility]; [facility] Work Phone: Comment on above: PATIENT WAS FASTINGP ERFORMED BY: CHRIS [facility] Hyvvle6862 [address] RoadDublin [place] [id number] Glucose [Mass/Vol] 94 mg/dL Normal 65-99 [facility]; [facility] Work Phone: Comment on above: PATIENT WAS FASTINGP ERFORMED BY: CB [facility] Ftcidq2430 [address] RoadDublin [place] [id number] Potassium [Moles/Vol] 4.3 mmol/L Normal 3.5-5.2 [facility] Internal Medicine; [facility] Internal Medicine Work Phone: Comment on above: PATIENT WAS FASTINGP ERFORMED BY: CB [facility] Uvvxwj3516 [address] RoadDublin [place] [id number] Protein [Mass/Vol] 7.4 g/dL Normal 6.0-8.5 [facility] Internal [facility]; [facility] Internal Medicine Work Phone: Comment on above: PATIENT WAS FASTINGP ERFORMED BY: CHRIS [facility] Ftbmmz5317 [address] RoadDublin [place] [id number] Sodium [Moles/Vol] 141 mmol/L Normal 134-144 [facility]; [facility] Work Phone: Comment on above: PATIENT WAS FASTINGP ERFORMED BY: CB [facility] Pqooqv4839 [address] RoadDublin [place] [id number] Urea nitrogen [Mass/Vol] 16 mg/dL Normal 8-27 [facility] Internal [facility]; [facility] Work Phone: Comment on above: PATIENT WAS FASTINGP ERFORMED BY: CB [facility] Zxptst3352 [address] RoadDublin [place] [id number] Urea nitrogen/Creatinine [Mass ratio] 31 mg/mg Abnormal 12-28 [facility] Internal Medicine; [facility] Work Phone: Comment on above: PATIENT WAS FASTINGP ERFORMED BY: CB [facility] Mtmruw3946 [address] RoadDublin [place] [id number] URINALYSIS, W/ MICRO ([id number]) Ordered By: Paper Baler on 11-07-2021 Appearance (U) Clear Normal Comprehens domingo Internal Medicine; [facility] Work Phone: Comment on above: PATIENT WAS FASTINGP ERFORMED BY: CHRIS Sanchez6370 [facility] [id number] Bilirubin Ql (U) Negative Normal Comprehe nsive Internal Medicine; [facility] Work Phone: Comment on above: PATIENT WAS FASTINGP ERFORMED BY: CHRIS Sanchez6370 [facility] [id number] Color (U) Yellow Normal [facility]; [facility] Work Phone: Comment on above: PATIENT WAS FASTINGP ERFORMED BY: CHRIS Sanchez6370 [facility] [id number] Glucose Ql (U) Negative Normal Comprehens domingo [facility]; [facility] Work Phone: Comment on above: PATIENT WAS FASTINGP ERFORMED BY: CHRIS Sanchez6370 [facility] [id number] Hemoglobin Ql (U) Negative Normal Compreh ensive Internal Medicine; [facility] Work Phone: Comment on above: PATIENT WAS FASTINGP ERFORMED BY: CHRIS Sanchez6370 [facility] [id number] Ketones Ql (U) Negative Normal Comprehens doimngo Internal Medicine; [facility] Work Phone: Comment on above: PATIENT WAS FASTINGP ERFORMED BY: CHRIS Bateslin6370 [facility] [id number] Leukocyte esterase Test strip Ql (U) Trace Abnormal [facility]; [facility] Work Phone: Comment on above: PATIENT WAS FASTINGP ERFORMED BY: CHRIS Bateslin6370 [facility] [id number] Microscopic observation LM Nom (Urine sed) See below: Normal [facility]; [facility] Work Phone: Comment on above: Microscopic was doug cated and was performed. PATIENT WAS FASTINGP ERFORMED BY: CB LabMc[facility] [facility]in [place] [id number] Nitrite Ql (U) Negative Normal Comprehens domingo [facility]; [facility] Work Phone: Comment on above: PATIENT WAS FASTINGP ERFORMED BY: [facility] Vtgllz8[address] [facility]in [place] [id number] pH (U) 5.5 [pH] Normal 5.0-7.5 [facility]; [facility] Work Phone: Comment on above: PATIENT WAS FASTINGP ERFORMED BY: [facility] [facility] [id number] Protein Ql (U) 1+ Abnormal Comprehens domingo [facility]; [facility] Work Phone: Comment on above: PATIENT WAS FASTINGP ERFORMED BY: [facility] Sqxxjf5545 [facility] [id number] Specific gravity (U) [Rel density] 1.023 1 Normal 1.005-1.03 0 [facility]; [facility] Work Phone: Comment on above: PATIENT WAS FASTINGP ERFORMED BY: [facility]6370 [facility] [id number] Urobilinogen (U) [Mass/Vol] 0.2 mg/dL Normal 0.2-1.0 [facility]; [facility] Work Phone: Comment on above: PATIENT WAS FASTINGP ERFORMED BY: [facility]6370 [facility] [id number] CORONAVIRUS 2019 BY PCRon SARS-CoV-2 (COVID-19) RNA VIKTORIA+probe Ql (Unsp spec) Not detected Normal Not Detected [facility] Comment on above: Result Comment: . [...] patient management decisions. Fact sheet for providers: https://www.fda.gov/media/420598/download Fact sheet for patients: https://www.fda.gov/media/261970/download This test has received FDA Emergency Use Authorization (EUA) and has been verified by [facility] ([facility]). This test is only authorized for the duration of time that circumstances exist to justify the authorization of the emergency use of in vitro diagnostic tests for the detection of SARS-CoV-2 virus and/or diagnosis of COVID-19 infection under section 564(b)(1) of the Act, 21 U.S.C. 360bbb-3(b)(1), unless the authorization is terminated or revoked sooner. [facility] is certified under CLIA-88 as qualified to perform high complexity testing. Testing is performed in the [facility] laboratories located at [address] [place] [address]. Performed By: #### C OV19 #### [address] [place] [address] Covid 19 Resultson 1 SARS-CoV-2 (COVID-19) RNA [...] You may also be contacted by the [facility] to see if any of your [...] or Naproxen (Aleve) can also be used. Nvwo-cxb-jofbxdx cough and cold medicines can be used according to the instructions on the package. Some bkrr-guv-uoliowz medicines also contain acetaminophen. Make sure you [...] water are not available, use alcohol-based hand millstone cleaner. Avoid touching your eyes, nose, and mouth [...] for 24 pj (more content not included)... [facility] CORONAVIRUS 2019 BY PCRon DATE OF SYMPTOM ONSET [YYYYMMDD]? Canceled [facility] Comment on above: Order Comment: TEST CORONAVIRUS 2019 BY PCR WAS CANCELLED, 04/12/2021 11:41 Performed By: #### C OV19 #### [facility] [address] [place] [address] SARS-CoV-2 (COVID-19) RNA VIKTORIA+probe Ql (Unsp spec) Canceled [facility] Comment on above: Order Comment: TEST CORONAVIRUS [...] patient management decisions. Fact sheet for providers: https://www.fda.gov/media/525961/download Fact sheet for patients: https://www.fda.gov/media/926800/download This test has received FDA Emergency Use Authorization (EUA) and has been verified by [facility] ([facility]). This test is only authorized for the duration of time that circumstances exist to justify the authorization of the emergency use of in vitro diagnostic tests for the detection of SARS-CoV-2 virus and/or diagnosis of COVID-19 infection under section 564(b)(1) of the Act, 21 U.S.C. 360bbb-3(b)(1), unless the authorization is terminated or revoked sooner. [facility] is certified under CLIA-88 as qualified to perform high complexity testing. Testing is performed in the [facility] laboratories located at [address] [place] [address]. Performed By: #### C OV19 #### [address] [place] [address] DATE OF SYMPTOM ONSET [YYYYMMDD]? [id number] [facility] Comment on above: Performed By: #### C OV19 #### [address] [place] [address] Lab Specimen Source Nasal, Nasopharyngeal [facility] Comment on above: Performed By: #### C OV19 #### [address] [place] [address] Lab Specimen Source Nasal, Nasopharyngeal [facility] Comment on above: Order Comment: TEST CORONAVIRUS 2019 BY PCR WAS CANCELLED, 04/12/2021 11:41 Performed By: #### C OV19 #### [facility] [address] [place] [address] Provider Note - ED v3on 03-27 Provider Note - ED v3 Provider Note: Chart Review: ED NOTES ED NOTES: Nontoxic female presents urgent care chief complaint COVID-19 concerns. Duration of symptoms 24 hours. Associated symptoms cough, body aches, chills, headache and fatigue. Patient does work as an ICU nurse at [employer]. States she is exposed to COVID-19 daily. [...] SIGNS: T PRBP SpO2O2(LPM) %FiO2 Method 12-Apr-2021 10:31:00-3621065/75 94 resp 18 96% bp 161/80 DISPOSITION [...] stable condition. This note was dictated using [employer] software and may contain errors in wording spelling or punctuation. CRITICAL CARE TIME Is this a critically ill patient: n (more content not included)... Normal [facility] CALCIFEDIOL ([id number])Ordered B y: Paper Baler on 10-13-2019 25-Hydroxyvitamin D2+25-Hydroxyvitamin D3 [Mass/Vol] 43.0 ng/mL Normal 30.0-100.0 [facility] Work Phone: Comment on above: Vitamin D deficiency has been defined by the [place] of[place] and an Endocrine Society practice guideline as alevel of serum 25-OH vitamin D less than 20 ng/mL (1,2).The Endocrine Society went on to further define vitamin Dinsufficiency as a level between 21 and 29 ng/mL (2).1. IOM ([place] [employer]). 2010. Dietary reference intakes for calcium and D. [place]: The National Academies Press.2. Amara MF, Pat NEGRON, Enrike MICHAELS, et al. Evaluation, treatment, and prevention of vitamin D deficiency: an Endocrine Society clinical practice guideline. JCEM. 2010; 96(7):1911-30. PATIENT WAS FASTINGP ERFORMED BY: Renrenmoney6370 [email or web address] Memorial Hospital [id number] CBC WITH MANUAL DIFF ([id number]) Ordered By: Paper Baler on 10-13-2019 Basophils (Bld) [#/Vol] 0.0 {x10E3/uL} Normal 0.0-0.2 [facility] Work Phone: Comment on above: PATIENT WAS FASTINGP ERFORMED BY: Renrenmoney6370 [address] [place] [id number] Basophils (Bld) [#/Vol] 0.0 10*3/uL Normal 0.0-0.2 [facility]; [facility] Work Phone: Comment on above: PATIENT WAS FASTINGP ERFORMED BY: Renrenmoney6370 [address] [place] [id number] Basophils/100 WBC (Bld) 1 % Normal [facility] Work Phone: Comment on above: PATIENT WAS FASTINGP ERFORMED BY: [facility] Staxmx1587 [address] RoadDublin [place] [id number] Eosinophils (Bld) [#/Vol] 0.2 {x10E3/uL} Normal 0.0-0.4 [facility] Work Phone: Comment on above: PATIENT WAS FASTINGP ERFORMED BY: [facility] Nbvhnu3693 [address] RoadDublin [place] [id number] Eosinophils (Bld) [#/Vol] 0.2 10*3/uL Normal 0.0-0.4 [facility]; [facility] Work Phone: Comment on above: PATIENT WAS FASTINGP ERFORMED BY: [facility] Brmlka8488 [address] RoadDublin [place] [id number] Eosinophils/100 WBC (Bld) 3 % Normal [facility] Work Phone: Comment on above: PATIENT WAS FASTINGP ERFORMED BY: [facility] Odsgif7528 [address] RoadDublin [place] [id number] Erythrocyte distribution width (RBC) [Ratio] 14.5 % Normal 11.7-15.4 [facility] Work Phone: Comment on above: PATIENT WAS FASTINGP ERFORMED BY: [facility] Vlwepv2072 [address] RoadDublin [place] [id number] Hematocrit (Bld) [Volume fraction] 46.6 % Normal 34.0-46.6 [facility] Work Phone: Comment on above: PATIENT WAS FASTINGP ERFORMED BY: [facility] Wmudlv0444 [address] RoadDublin [place] [id number] Hemoglobin (Bld) [Mass/Vol] 15.1 g/dL Normal 11.1-15.9 [facility] Work Phone: Comment on above: PATIENT WAS FASTINGP ERFORMED BY: [facility] Almtos4073 [address] RoadDublin [place] [id number] Immature granulocytes (Bld) [#/Vol] 0.0 {x10E3/uL} Normal 0.0-0.1 [facility] Work Phone: Comment on above: PATIENT WAS FASTINGP ERFORMED BY: [facility] Loovko4423 [address] RoadDublin [place] [id number] Immature granulocytes (Bld) [#/Vol] 0.0 10*3/uL Normal 0.0-0.1 [facility]; [facility] Work Phone: Comment on above: PATIENT WAS FASTINGP ERFORMED BY: [facility] Paykcn3614 [address]Dublin [place] [id number] Immature granulocytes/100 WBC (Bld) 0 % Normal [facility] Work Phone: Comment on above: PATIENT WAS FASTINGP ERFORMED BY: LabAsc[facility]6[address] [place] [id number] Lymphocytes (Bld) [#/Vol] 1.8 {x10E3/uL} Normal 0.7-3.1 [facility] Work Phone: Comment on above: PATIENT WAS FASTINGP ERFORMED BY: LabAsc[facility]6[address]Dublin [place] [id number] Lymphocytes (Bld) [#/Vol] 1.8 10*3/uL Normal 0.7-3.1 [facility]; [facility] Work Phone: Comment on above: PATIENT WAS FASTINGP ERFORMED BY: LabAsc[facility]6[address] [place] [id number] Lymphocytes/100 WBC (Bld) 29 % Normal [facility] Work Phone: Comment on above: PATIENT WAS FASTINGP ERFORMED BY: [facility] Nlkqwa6557 [address] RoadDublin [place] [id number] MCH (RBC) [Entitic mass] 26.7 pg Normal 26.6-33.0 [facility] Work Phone: Comment on above: PATIENT WAS FASTINGP ERFORMED BY: LabCo Dccuea3848 [address] RoadDublin [place] [id number] MCHC (RBC) [Mass/Vol] 32.4 g/dL Normal 31.5-35.7 [facility] prehensive Internal Medicine Work Phone: Comment on above: PATIENT WAS FASTINGP ERFORMED BY: CHRIS LabGuerrero Sanchez6370 [address] RoadDublin [place] [id number] MCV (RBC) [Entitic vol] 83 fL Normal 79-97 [facility] Work Phone: Comment on above: PATIENT WAS FASTINGP ERFORMED BY: CHRIS LabCo Lycaoi8485 [address] RoadDublin [place] [id number] Monocytes (Bld) [#/Vol] 0.6 {x10E3/uL} Normal 0.1-0.9 [facility] Work Phone: Comment on above: PATIENT WAS FASTINGP ERFORMED BY: CHRIS LabCo Biczxg0610 [address] RoadDublin [place] [id number] Monocytes (Bld) [#/Vol] 0.6 10*3/uL Normal 0.1-0.9 [facility]; [facility] Work Phone: Comment on above: PATIENT WAS FASTINGP ERFORMED BY: CHRIS [facility] Vlrdkd5174 [address]z RoadDublin [place] [id number] Monocytes/100 WBC (Bld) 9 % Normal [facility] Work Phone: Comment on above: PATIENT WAS FASTINGP ERFORMED BY: CHRIS LabPat Cubxhl9585 [address] RoadDublin [place] [id number] Neutrophils (Bld) [#/Vol] 3.6 {x10E3/uL} Normal 1.4-7.0 [facility] Work Phone: Comment on above: PATIENT WAS FASTINGP ERFORMED BY: Lab[facility] Plwfkq7038 [address] RoadDublin [place] [id number] Neutrophils (Bld) [#/Vol] 3.6 10*3/uL Normal 1.4-7.0 [facility]; [facility] Work Phone: Comment on above: PATIENT WAS FASTINGP ERFORMED BY: [facility] Xrzmpv4696 [address] RoadDublin [place] [id number] Neutrophils/100 WBC (Bld) 58 % Normal [facility] Work Phone: Comment on above: PATIENT WAS FASTINGP ERFORMED BY: CHRIS Alireza Sanchez6370 [address]Dublin [place] [id number] Platelets (Bld) [#/Vol] 305 {x10E3/uL} Normal 150-450 [facility] Work Phone: Comment on above: PATIENT WAS FASTINGP ERFORMED BY: CHRIS LabPat Ncreyv9425 [address] RoadDublin [place] [id number] Platelets (Bld) [#/Vol] 305 10*3/uL Normal 150-450 [facility]; [facility] Work Phone: Comment on above: PATIENT WAS FASTINGP ERFORMED BY: CHRIS Tierneytrudi Khumza3562 [address] RoadDublin [place] [id number] RBC (Bld) [#/Vol] 5.65 {x10E6/uL} Abnormal 3.77-5.28 [facility] Internal Medicine Work Phone: Comment on above: PATIENT WAS FASTINGP ERFORMED BY: CHRIS Tierney Hchbuj5316 [address] Roadblin [place] [id number] RBC (Bld) [#/Vol] 5.65 10*6/uL Abnormal 3.77-5.28 [facility]; [facility] Work Phone: Comment on above: PATIENT WAS FASTINGP ERFORMED BY: CHRIS Tierney Cbihtc5362 [address] Roadblin [place] [id number] WBC (Bld) [#/Vol] 6.2 {x10E3/uL} Normal 3.4-10.8 [facility] Internal Medicine Work Phone: Comment on above: PATIENT WAS FASTINGP ERFORMED BY: Lab[facility] Aftozz1806 [address]Dublin [place] [id number] WBC (Bld) [#/Vol] 6.2 10*3/uL Normal 3.4-10.8 [facility] Medicine; [facility] Work Phone: Comment on above: PATIENT WAS FASTINGP ERFORMED BY: CHRIS [facility] Sqdndt5321 [address] RoadDublin [place] [id number] LIPID PANEL (36025)Ordered B y: Paper Baler on 10-13-2019 Cholesterol [Mass/Vol] 166 mg/dL Normal 100-199 [facility] Work Phone: Comment on above: PATIENT WAS FASTINGP ERFORMED BY: CHRIS [facility] Uwwrlh3158 [address] RoadDublin [place] [id number] Cholesterol in HDL [Mass/Vol] 49 mg/dL Normal [facility] Work Phone: Comment on above: PATIENT WAS FASTINGP ERFORMED BY: CHRIS [facility] Txjcoj4026 [address] RoadDublin [place] [id number] Cholesterol in LDL [Mass/Vol] 101 mg/dL Abnormal 0-99 [facility] Work Phone: Comment on above: PATIENT WAS FASTINGP ERFORMED BY: CHRIS LabGuerrero BatesLqxkjs12[address] [facility]in [place] [id number] Cholesterol in LDL/Cholesterol in HDL [Mass ratio] 2.1 {ratio} Normal 0.0-3.2 [facility] Work Phone: Comment on above: LDL/HDL Ratio Men Wo men 1/2 Avg.Risk 1.0 1.5 Avg.Risk 3.6 3.2 2X Avg.Risk 6.2 5.0 3X Avg.Risk 8.0 6.1 PATIENT WAS FASTINGP ERFORMED BY: CHRIS LabCotrudi Rmmtqh37[address] [facility]in [place] [id number] Cholesterol in VLDL [Mass/Vol] 16 mg/dL Normal 5-40 [facility] Work Phone: Comment on above: PATIENT WAS FASTINGP ERFORMED BY: CHRIS [facility] Mtvmoc0603 [address] [facility] AlpenaDublin [place] [id number] Triglyceride [Mass/Vol] 78 mg/dL Normal 0-149 [facility] Work Phone: Comment on above: PATIENT WAS FASTINGP ERFORMED BY: CHRIS [facility] Vgifrn5712 [address] RoadDublin [place] [id number] METABOLIC PANEL, BASIC (8004 8)Ordered By: Paper Baler on 10-13-2019 Calcium [Mass/Vol] 9.6 mg/dL Normal 8.7-10.3 [facility] Internal Medicine Work Phone: Comment on above: PATIENT WAS FASTINGP ERFORMED BY: CB [facility] Uhifnw4019 [address] RoadDublin [place] [id number]; fu 2-20 db Chloride [Moles/Vol] 103 mmol/L Normal 96-106 [facility] Work Phone: Comment on above: PATIENT WAS FASTINGP ERFORMED BY: CB [facility] Nuheln2178 [address] RoadDublin [place] [id number]; fu 2-20 db CO2 [Moles/Vol] 25 mmol/L Normal 20-29 [facility] Internal Medicine Work Phone: Comment on above: PATIENT WAS FASTINGP ERFORMED BY: CB [facility] Niffqy3739 [address] RoadDublin [place] [id number]; fu 2-20 db Creatinine [Mass/Vol] 0.45 mg/dL Abnormal 0.57-1.00 [facility] Work Phone: Comment on above: PATIENT WAS FASTINGP ERFORMED BY: CB [facility] Qlcnpd5510 [address] RoadDublin [place] [id number]; fu 2-20 db GFR/1.73 sq M predicted among blacks CKD-EPI (S/P/Bld) [Vol rate/Area] 124 mL/min/1.73 Normal [facility] Work Phone: Comment on above: PATIENT WAS FASTINGP ERFORMED BY: CB [facility] Mqmwbf0145 [address] RoadDublin [place] [id number]; fu 2-20 db GFR/1.73 sq M predicted among non-blacks CKD-EPI (S/P/Bld) [Vol rate/Area] 108 mL/min/1.73 Normal [facility] Work Phone: Comment on above: PATIENT WAS FASTINGP ERFORMED BY: CB [facility] Ogsbkc6359 [address] RoadDublin [place] [id number]; fu 2-20 db Glucose [Mass/Vol] 92 mg/dL Normal 65-99 [facility] Internal Medicine Work Phone: Comment on above: PATIENT WAS FASTINGP ERFORMED BY: CB [facility] Nuabnd4801 [address] RoadDublin [place] [id number]; fu 2-20 db Potassium [Moles/Vol] 3.8 mmol/L Normal 3.5-5.2 [facility] Internal Medicine Work Phone: Comment on above: PATIENT WAS FASTINGP ERFORMED BY: CB [facility] Xksmnh8078 [address] RoadDublin [place] [id number]; fu 2-20 db Sodium [Moles/Vol] 144 mmol/L Normal 134-144 [facility] Internal Medicine Work Phone: Comment on above: PATIENT WAS FASTINGP ERFORMED BY: CB [facility] Lmhvzk6141 [address] RoadDublin [place] [id number]; fu 2-20 db Urea nitrogen [Mass/Vol] 14 mg/dL Normal 8-27 [facility] Internal Medicine Work Phone: Comment on above: PATIENT WAS FASTINGP ERFORMED BY: CB [facility] Cnsbvf4779 [address] RoadDublin [place] [id number]; fu 2-20 db Urea nitrogen/Creatinine [Mass ratio] 31 mg/mg Abnormal 12- [facility] Internal Medicine Work Phone: Comment on above: PATIENT WAS FASTINGP ERFORMED BY: CB [facility] Ncxrgg2580 [address] RoadDublin [place] [id number]; fu 2-20 db MICROALBUMINOrdered By: Syst em Labor Contractor on 10-13-2019 Albumin DL <= 20 mg/L (U) [Mass/Vol] 47.4 ug/mL Normal [facility] Internal Medicine Work Phone: Comment on above: PATIENT WAS FASTINGP ERFORMED BY: CB [facility] Zmdyvw1446 [address] RoadDublin [place] [id number] Albumin/Creatinine (U) [Mass ratio] 90 {mg/g_creat} Abnormal 0-29 [facility] Work Phone: Comment on above: Normal: 0 - 29 Moder ately increased: 30 - 300 Severely increased: >300 Please note reference interval change PATIENT WAS FASTINGP ERFORMED BY: CHRIS Sanchez6370 [address]Dublin [place] [id number] Creatinine (U) [Mass/Vol] 52.4 mg/dL Normal [facility] Work Phone: Comment on above: PATIENT WAS FASTINGP ERFORMED BY: CHRIS Sanchez6[address]Dublin [place] [id number] URINALYSIS ([id number])Ordered By : Paper Baler on 10-13-2019 Appearance (U) Clear Normal Comprehens [facility] Internal Medicine Work Phone: Comment on above: PATIENT WAS FASTINGP ERFORMED BY: CHRIS Sanchez6370 [address]Dublin [place] [id number] Bilirubin Ql (U) Negative Normal Comprehe nsive Internal Medicine Work Phone: Comment on above: PATIENT WAS FASTINGP ERFORMED BY: CHRIS Sanchez6[address]Dublin [place] [id number] Bilirubin Ql (U) Negative Normal Comprehe nsive Internal Medicine; [facility] Work Phone: Comment on above: PATIENT WAS FASTINGP ERFORMED BY: CHRIS Sanchez6[address]Dublin [place] [id number] Color (U) Yellow Normal [facility] Work Phone: Comment on above: PATIENT WAS FASTINGP ERFORMED BY: CHRIS Sanchez6370 [address]Dublin [place] [id number] Glucose Ql (U) Negative Normal [facility] Internal Medicine Work Phone: Comment on above: PATIENT WAS FASTINGP ERFORMED BY: CHRIS LabGuerrero BatesGmycor3195 [address] RoadDublin [place] [id number] Glucose Ql (U) Negative Normal [facility]prehens [facility]; [facility] Work Phone: Comment on above: PATIENT WAS FASTINGP ERFORMED BY: CHRIS Bateslin6370 [address]Dublin [place] [id number] Hemoglobin Ql (U) Negative Normal Compreh ensive Internal Medicine Work Phone: Comment on above: PATIENT WAS FASTINGP ERFORMED BY: CHRIS [facility] Diulra8446 [address] RoadDublin [place] [id number] Hemoglobin Ql (U) Negative Normal Compreh ensive Internal Medicine; [facility] Work Phone: Comment on above: PATIENT WAS FASTINGP ERFORMED BY: CHRIS LabCotrudi BatesMivgae8285 [address] RoadDublin [place] [id number] Ketones Ql (U) Trace Abnormal Comprehens [facility] Medicine Work Phone: Comment on above: PATIENT WAS FASTINGP ERFORMED BY: CHRIS [facility] Rmzltw8855 [address] RoadDublin [place] [id number] Leukocyte esterase Test strip Ql (U) Negative Normal [facility] Work Phone: Comment on above: PATIENT WAS FASTINGP ERFORMED BY: CHRIS LabCotrudi BatesVcwywh0423 [address] RoadDublin [place] [id number] Leukocyte esterase Test strip Ql (U) Negative Normal [facility]; [facility] Work Phone: Comment on above: PATIENT WAS FASTINGP ERFORMED BY: CHRIS [facility] Thpgia2692 [address] RoadDublin [place] [id number] Microscopic observation LM Nom (Urine sed) MICNIP Normal [facility] Work Phone: Comment on above: Microscopic not doug cated and not performed. PATIENT WAS FASTINGP ERFORMED BY: CHRIS [facility] Avdayz4836 [address] RoadDublin [place] [id number] Nitrite Ql (U) Negative Normal [facility] Internal Medicine Work Phone: Comment on above: PATIENT WAS FASTINGP ERFORMED BY: CHRIS [facility] Znievl2088 [address] RoadDublin [place] [id number] Nitrite Ql (U) Negative Normal [facility]prehens [facility]; [facility] Work Phone: Comment on above: PATIENT WAS FASTINGP ERFORMED BY: CHRIS [facility] Zvipvl0627 [address] RoadDublin [place] [id number] pH (U) 5.5 [pH] Normal 5.0-7.5 [facility] Work Phone: Comment on above: PATIENT WAS FASTINGP ERFORMED BY: [facility] Lmxrbi8643 [address] RoadDublin [place] [id number] Protein Ql (U) Negative Normal [facility] Medicine Work Phone: Comment on above: PATIENT WAS FASTINGP ERFORMED BY: [facility] Wypzfc7200 [address] RoadDublin [place] [id number] Protein Ql (U) Negative Normal Comprehens [facility]ingo Internal Medicine; [facility] Internal Medicine Work Phone: Comment on above: PATIENT WAS FASTINGP ERFORMED BY: Lab[facility] Ywgsca3956 [address] RoadFormerly [facility]in [place] [id number] Specific gravity (U) [Rel density] 1.018 1 Normal 1.005-1.03 0 [facility] Internal Medicine Work Phone: Comment on above: PATIENT WAS FASTINGP ERFORMED BY: LabCo Yukqpr8575 Gamez RoadAdventHealth Hendersonville [id number] Urobilinogen (U) [Mass/Vol] 0.2 mg/dL Normal 0.2-1.0 [facility] Internal Medicine; [facility] Internal Medicine Work Phone: Comment on above: PATIENT WAS FASTINGP ERFORMED BY: [facility] Cjyjll4455 [address] Roadblin [place] [id number] Urobilinogen Test strip (U) [Mass/Vol] 0.2 mg/dL Normal 0.2-1.0 [facility] Internal [facility] Work Phone: Comment on above: PATIENT WAS FASTINGP ERFORMED BY: [facility] Katwuu[address] [facility] [id number] HEPATITIS C ANTIBODY ([id number]) Ordered By: Paper Baler on 04-14-2019 HCV Ab Signal/Cutoff IA [Rel units/Vol] {ratio} Normal 0.0-0.9 [facility] Internal Medicine Work Phone: Comment on above: Negative: < 0.8 Inde terminate: 0.8 - 0.9 Positive: > 0.9 . The CDC recommends that a positive HCV antibody result be followed up with a HCV Nucleic Acid Amplification test (085193). PATIENT NOT FASTINGP ERFORMED BY: ID QuantiqueAscension St. Joseph Hospital6[address] [facility] [id number] HCV Ab Signal/Cutoff IA [Rel units/Vol] {ratio} Normal 0.0-0.9 [facility]; [facility] Work Phone: Comment on above: Negative: < 0.8 Inde terminate: 0.8 - 0.9 Positive: > 0.9 . The CDC recommends that a positive HCV antibody result be followed up with a HCV Nucleic Acid Amplification test (145743). PATIENT NOT FASTINGP ERFORMED BY: ID QuantiqueAscension St. Joseph Hospital6370 [facility] [id number] CBC WITH MANUAL DIFF ([id number]) Ordered By: Paper Baler on 03-25-2019 Basophils (Bld) [#/Vol] 0.0 {x10E3/uL} Normal 0.0-0.2 [facility] Work Phone: Comment on above: PATIENT WAS FASTINGP ERFORMED BY: [facility]6[address] [facility] [id number] Basophils (Bld) [#/Vol] 0.0 10*3/uL Normal 0.0-0.2 [facility]; [facility] Work Phone: Comment on above: PATIENT WAS FASTINGP ERFORMED BY: ID [facility]iqueAsc[facility] St. [facility] Hospital6[address] [facility] [id number] Basophils/100 WBC (Bld) 0 % Normal [facility] Work Phone: Comment on above: PATIENT WAS FASTINGP ERFORMED BY: LabAscension St. [facility] Hospital6[address] [facility] [id number] Eosinophils (Bld) [#/Vol] 0.2 {x10E3/uL} Normal 0.0-0.4 [facility] Work Phone: Comment on above: PATIENT WAS FASTINGP ERFORMED BY: [facility]6[address] [facility] [id number] Eosinophils (Bld) [#/Vol] 0.2 10*3/uL Normal 0.0-0.4 [facility]; [facility] Work Phone: Comment on above: PATIENT WAS FASTINGP ERFORMED BY: CHRIS [facility] Ukgntf[address] [facility]in [place] [id number] Eosinophils/100 WBC (Bld) 2 % Normal [facility] Work Phone: Comment on above: PATIENT WAS FASTINGP ERFORMED BY: [facility] Iidczm8591 [address] [facility] [id number] Erythrocyte distribution width (RBC) [Ratio] 14.2 % Normal 12.3-15.4 [facility] Work Phone: Comment on above: PATIENT WAS FASTINGP ERFORMED BY: [facility] Itfehf5594 [address] [facility] [id number] Hematocrit (Bld) [Volume fraction] 44.5 % Normal 34.0-46.6 [facility] Work Phone: Comment on above: PATIENT WAS FASTINGP ERFORMED BY: [facility]itoMer[facility] Gduglr1649 [facility] [id number] Hemoglobin (Bld) [Mass/Vol] 15.3 g/dL Normal 11.1-15.9 [facility] Work Phone: Comment on above: PATIENT WAS FASTINGP ERFORMED BY: Tierney Ceerkp30[address] [facility] [id number] Immature granulocytes (Bld) [#/Vol] 0.0 {x10E3/uL} Normal 0.0-0.1 [facility] Work Phone: Comment on above: PATIENT WAS FASTINGP ERFORMED BY: [facility] Rpobzy8719 [address] [facility]in [place] [id number] Immature granulocytes (Bld) [#/Vol] 0.0 10*3/uL Normal 0.0-0.1 [facility]; [facility] Work Phone: Comment on above: PATIENT WAS FASTINGP ERFORMED BY: LabAsc[facility] St. [facility]6[address] [facility] [id number] Immature granulocytes/100 WBC (Bld) 0 % Normal [facility] Work Phone: Comment on above: PATIENT WAS FASTINGP ERFORMED BY: LabCoThe Rehabilitation Hospital of Tinton FallsKlaxkt5613 [address] Roadblin [place] [id number] Lymphocytes (Bld) [#/Vol] 2.4 {x10E3/uL} Normal 0.7-3.1 [facility] Work Phone: Comment on above: PATIENT WAS FASTINGP ERFORMED BY: LabCoThe Rehabilitation Hospital of Tinton FallsBsvbge7[address] [facility] Centerblin [place] [id number] Lymphocytes (Bld) [#/Vol] 2.4 10*3/uL Normal 0.7-3.1 [facility]; [facility] Work Phone: Comment on above: PATIENT WAS FASTINGP ERFORMED BY: LabAscension St. [facility] Hospital6[address] [facility] Centerblin [place] [id number] Lymphocytes/100 WBC (Bld) 24 % Normal [facility] Work Phone: Comment on above: PATIENT WAS FASTINGP ERFORMED BY: LabAscension St. [facility]6[address] [facility]in [place] [id number] MCH (RBC) [Entitic mass] 28.0 pg Normal 26.6-33.0 [facility] Work Phone: Comment on above: PATIENT WAS FASTINGP ERFORMED BY: LabAscension St. [facility]6[address] [facility] Centerblin [place] [id number] MCHC (RBC) [Mass/Vol] 34.4 g/dL Normal 31.5-35.7 [facility] prehensive Internal Medicine Work Phone: Comment on above: PATIENT WAS FASTINGP ERFORMED BY: LabMer[facility] Zqqyrn6388 [address] [facility] Centerblin [place] [id number] MCV (RBC) [Entitic vol] 82 fL Normal 79-97 [facility] Work Phone: Comment on above: PATIENT WAS FASTINGP ERFORMED BY: LabMer[facility] Uyooqr3195 [address] RoadDublin [place] [id number] Monocytes (Bld) [#/Vol] 1.0 {x10E3/uL} Abnormal 0.1-0.9 [facility] Work Phone: Comment on above: PATIENT WAS FASTINGP ERFORMED BY: CB [facility] Xtodea6185 [address] RoadDublin [place] [id number] Monocytes (Bld) [#/Vol] 1.0 10*3/uL Abnormal 0.1-0.9 [facility]; [facility] Work Phone: Comment on above: PATIENT WAS FASTINGP ERFORMED BY: CB [facility] Sdmbfy7896 [address] RoadDublin [place] [id number] Monocytes/100 WBC (Bld) 10 % Normal [facility] Work Phone: Comment on above: PATIENT WAS FASTINGP ERFORMED BY: CB [facility] Tfudfu1237 [address] RoadDublin [place] [id number] Neutrophils (Bld) [#/Vol] 6.4 {x10E3/uL} Normal 1.4-7.0 [facility] Work Phone: Comment on above: PATIENT WAS FASTINGP ERFORMED BY: CB [facility] Jjlzaz5579 [address] RoadDublin [place] [id number] Neutrophils (Bld) [#/Vol] 6.4 10*3/uL Normal 1.4-7.0 [facility]; [facility] Work Phone: Comment on above: PATIENT WAS FASTINGP ERFORMED BY: CB [facility] Jwmezy2541 [address] RoadDublin [place] [id number] Neutrophils/100 WBC (Bld) 64 % Normal [facility] Work Phone: Comment on above: PATIENT WAS FASTINGP ERFORMED BY: CB [facility] Tarldo0598 [address] RoadDublin [place] [id number] Platelets (Bld) [#/Vol] 340 {x10E3/uL} Normal 150-450 [facility] Work Phone: Comment on above: PATIENT WAS FASTINGP ERFORMED BY: CB [facility] Dziwgl0504 [address] RoadDublin [place] [id number] Platelets (Bld) [#/Vol] 340 10*3/uL Normal 150-450 [facility]; [facility] Work Phone: Comment on above: PATIENT WAS FASTINGP ERFORMED BY: CHRIS LabPat Iohmpm6864 [address] [facility] Centerbl[facility] [place] [id number] RBC (Bld) [#/Vol] 5.46 {x10E6/uL} Abnormal 3.77-5.28 [facility] Internal Medicine Work Phone: Comment on above: PATIENT WAS FASTINGP ERFORMED BY: CB [facility] Kabuky8055 [address] [facility]in [place] [id number] RBC (Bld) [#/Vol] 5.46 10*6/uL Abnormal 3.77-5.[address] [facility] Internal Medicine; [facility] Work Phone: Comment on above: PATIENT WAS FASTINGP ERFORMED BY: CHRIS LabPat Qigmeb3978 [facility]in [place] [id number] WBC (Bld) [#/Vol] 10.1 {x10E3/uL} Normal 3.4-10.8 [facility] Internal Medicine Work Phone: Comment on above: PATIENT WAS FASTINGP ERFORMED BY: CHRIS LabMer[facility] Mbghsz6231 [facility]in [place] [id number] WBC (Bld) [#/Vol] 10.1 10*3/uL Normal 3.4-10.[address] [facility] Internal Medicine; [facility] Work Phone: Comment on above: PATIENT WAS FASTINGP ERFORMED BY: LabMer[facility] Wxsoiv2539 [facility] [id number] MICROALBUMINOrdered By: Syst em Labor Contractor on 03-25-2019 Albumin DL <= 20 mg/L (U) [Mass/Vol] 38.5 ug/mL Normal [facility] Work Phone: Comment on above: PATIENT WAS FASTINGP ERFORMED BY: CHRIS LabCo Jtaymb1398 [facility] [id number] Albumin/Creatinine (U) [Mass ratio] 39.5 {mg/g_creat} Abnormal 0.0-30.0 [facility] Work Phone: Comment on above: Normal: 0.0 - 30.0 A lbuminuria: 31.0 - 300.0 Clinical albuminuria: >300.0 PATIENT WAS FASTINGP ERFORMED BY: CRHIS LabCotrudi Kjyday8851 [address] RoadDublin [place] [id number] Creatinine (U) [Mass/Vol] 97.5 mg/dL Normal [facility] Work Phone: Comment on above: PATIENT WAS FASTINGP ERFORMED BY: CHRIS [facility] Bjmjyq6866 [address] RoadDublin [place] [id number] Metabolic Panel, Comprehensi ve (21312)Ordered By: Paper Baler on 03-25-2019 Albumin [Mass/Vol] 4.4 g/dL Normal 3.6-4.8 [facility] Work Phone: Comment on above: PATIENT WAS FASTINGP ERFORMED BY: CHRIS [facility] Pefyqw7199 [address] RoadDublin [place] [id number] Albumin/Globulin [Mass ratio] 1.4 {ratio} Normal 1.2-2.2 [facility] Work Phone: Comment on above: PATIENT WAS FASTINGP ERFORMED BY: CHRIS Lab[facility] Ycpdun7360 [address] RoadDublin [place] [id number] ALP [Catalytic activity/Vol] 74 [iU]/L Normal 39-117 [facility] Work Phone: Comment on above: PATIENT WAS FASTINGP ERFORMED BY: CHRIS [facility] Okrrzg4706 [address] RoadDublin [place] [id number] ALP [Catalytic activity/Vol] 74 U/L Normal 39-117 [facility]; [facility] Work Phone: Comment on above: PATIENT WAS FASTINGP ERFORMED BY: CHRIS [facility] Rpaebj7958 [address] RoadDublin [place] [id number] ALT [Catalytic activity/Vol] 22 [iU]/L Normal 0-32 [facility] Work Phone: Comment on above: PATIENT WAS FASTINGP ERFORMED BY: CHRIS [facility] Ohzkgg7416 [address] RoadDublin [place] [id number] ALT [Catalytic activity/Vol] 22 U/L Normal 0-32 [facility]; [facility] Work Phone: Comment on above: PATIENT WAS FASTINGP ERFORMED BY: CB [facility] Qfftuv0895 [address] RoadDublin [place] [id number] AST [Catalytic activity/Vol] 14 [iU]/L Normal 0-40 [facility] Work Phone: Comment on above: PATIENT WAS FASTINGP ERFORMED BY: CB [facility] Rghsmg0108 [address] RoadDublin [place] [id number] AST [Catalytic activity/Vol] 14 U/L Normal 0-40 [facility]; [facility] Internal Medicine Work Phone: Comment on above: PATIENT WAS FASTINGP ERFORMED BY: [facility] Wtbfpw4322 [address] RoadDublin [place] [id number] Bilirubin [Mass/Vol] 0.5 mg/dL Normal 0.0-1.2 [facility] Work Phone: Comment on above: PATIENT WAS FASTINGP ERFORMED BY: [facility] Eygxyg2199 [address] RoadDublin [place] [id number] Calcium [Mass/Vol] 10.0 mg/dL Normal 8.7-10.3 [facility] Internal Medicine Work Phone: Comment on above: PATIENT WAS FASTINGP ERFORMED BY: [facility] Hftqdb7005 [address] RoadDublin [place] [id number] Chloride [Moles/Vol] 103 mmol/L Normal 96-106 [facility] Work Phone: Comment on above: PATIENT WAS FASTINGP ERFORMED BY: [facility] Ietaxe1368 [address] RoadDublin [place] [id number] CO2 [Moles/Vol] 22 mmol/L Normal 20-29 [facility] Internal Medicine Work Phone: Comment on above: PATIENT WAS FASTINGP ERFORMED BY: CB [facility] Nnyffv2465 [address] RoadDublin [place] [id number] Creatinine [Mass/Vol] 0.60 mg/dL Normal 0.57-1.00 [facility] Internal Medicine Work Phone: Comment on above: PATIENT WAS FASTINGP ERFORMED BY: CB [facility] Wtopqm1632 [address] RoadDublin [place] [id number] GFR/1.73 sq M predicted among blacks CKD-EPI (S/P/Bld) [Vol rate/Area] 113 mL/min/1.73 Normal [facility] Work Phone: Comment on above: PATIENT WAS FASTINGP ERFORMED BY: CB [facility] Wefhnm4901 [address] RoadDublin [place] [id number] GFR/1.73 sq M predicted among non-blacks CKD-EPI (S/P/Bld) [Vol rate/Area] 98 mL/min/1.73 Normal [facility] Internal Medicine Work Phone: Comment on above: PATIENT WAS FASTINGP ERFORMED BY: [facility] Newcsv5073 [address]Dublin [place] [id number] Globulin (S) [Mass/Vol] 3.2 g/dL Normal 1.5-4.5 [facility] Internal Medicine Work Phone: Comment on above: PATIENT WAS FASTINGP ERFORMED BY: [facility] Kxcxuz9777 [address] RoadDublin [place] [id number] Glucose [Mass/Vol] 88 mg/dL Normal 65-99 [facility] Internal Medicine Work Phone: Comment on above: PATIENT WAS FASTINGP ERFORMED BY: [facility] Pyucxa6[address]Dublin [place] [id number] Potassium [Moles/Vol] 3.9 mmol/L Normal 3.5-5.2 [facility] Internal Medicine Work Phone: Comment on above: PATIENT WAS FASTINGP ERFORMED BY: CB [facility] Bjlgmx8496 [address] RoadDublin [place] [id number] Protein [Mass/Vol] 7.6 g/dL Normal 6.0-8.5 [facility] Internal Medicine Work Phone: Comment on above: PATIENT WAS FASTINGP ERFORMED BY: [facility] Rosnio9439 [address] RoadDublin [place] [id number] Sodium [Moles/Vol] 142 mmol/L Normal 134-144 Compre hensive Internal Medicine Work Phone: Comment on above: PATIENT WAS FASTINGP ERFORMED BY: CHRIS Bateslin6[address]Dublin [place] [id number] Urea nitrogen [Mass/Vol] 21 mg/dL Normal - [facility] Work Phone: Comment on above: PATIENT WAS FASTINGP ERFORMED BY: CHRIS Bateslin6[address]Dublin [place] [id number] Urea nitrogen/Creatinine [Mass ratio] 35 mg/mg Abnormal 12- [facility] Work Phone: Comment on above: PATIENT WAS FASTINGP ERFORMED BY: CHRIS Bateslin6[address]Dublin [place] [id number] URINALYSIS ([id number])Ordered By : Paper Baler on 03-25-2019 Appearance (U) Clear Normal [facility] Internal Medicine Work Phone: Comment on above: PATIENT WAS FASTINGP ERFORMED BY: CHRIS Bateslin6[address]Dublin [place] [id number] Bilirubin Ql (U) Negative Normal Comprehe nsive Internal Medicine Work Phone: Comment on above: PATIENT WAS FASTINGP ERFORMED BY: CHRIS Bateslin6[address]Dublin [place] [id number] Bilirubin Ql (U) Negative Normal Comprehe nsive Internal Medicine; [facility] Work Phone: Comment on above: PATIENT WAS FASTINGP ERFORMED BY: CHRIS Bateslin[address]Dublin [place] [id number] Color (U) Yellow Normal [facility] Work Phone: Comment on above: PATIENT WAS FASTINGP ERFORMED BY: CHRIS Bateslin6[address]Dublin [place] [id number] Glucose Ql (U) Negative Normal [facility] Medicine Work Phone: Comment on above: PATIENT WAS FASTINGP ERFORMED BY: CHRIS Bateslin6[address]Dublin [place] [id number] Glucose Ql (U) Negative Normal Comprehens dominog Internal Medicine; [facility] Work Phone: Comment on above: PATIENT WAS FASTINGP ERFORMED BY: CHRIS Luu70 [address] RoadDublin [place] [id number] Hemoglobin Ql (U) Negative Normal Compreh ensive Internal Medicine Work Phone: Comment on above: PATIENT WAS FASTINGP ERFORMED BY: CHRIS Sibley Gamez RoadDublin [place] [id number] Hemoglobin Ql (U) Negative Normal Compreh ensive Internal Medicine; [facility] Work Phone: Comment on above: PATIENT WAS FASTINGP ERFORMED BY: CHRIS Sibley [address] RoadDublin [place] [id number] Ketones Ql (U) Negative Normal [facility] Work Phone: Comment on above: PATIENT WAS FASTINGP ERFORMED BY: CHRIS Sibley [address] RoadDublin [place] [id number] Ketones Ql (U) Negative Normal [facility]; [facility] Work Phone: Comment on above: PATIENT WAS FASTINGP ERFORMED BY: CHIRS Luu70 [address]Dublin [place] [id number] Leukocyte esterase Test strip Ql (U) 1+ Abnormal [facility] Work Phone: Comment on above: PATIENT WAS FASTINGP ERFORMED BY: CHRIS Sibley [address] RoadDublin [place] [id number] Microscopic observation LM Nom (Urine sed) See below: Normal [facility] Work Phone: Comment on above: Microscopic was doug cated and was performed. PATIENT WAS FASTINGP ERFORMED BY: CHRIS Sanchez6370 [address]Dublin [place] [id number] Nitrite Ql (U) Negative Normal [facility] Work Phone: Comment on above: PATIENT WAS FASTINGP ERFORMED BY: CHRIS Sanchez6[address]Dublin [place] [id number] Nitrite Ql (U) Negative Normal [facility]; [facility] Work Phone: Comment on above: PATIENT WAS FASTINGP ERFORMED BY: CHRIS Alireza Sanchez[address] [facility]blin [place] [id number] pH (U) 5.5 [pH] Normal 5.0-7.5 [facility] Internal Medicine Work Phone: Comment on above: PATIENT WAS FASTINGP ERFORMED BY: CHRIS ToritoMer[facility] Ujpdhf3386 Gamez Roadblin [place] [id number] Protein Ql (U) Negative Normal [facility] Medicine Work Phone: Comment on above: PATIENT WAS FASTINGP ERFORMED BY: CHRIS ToritoGuerrero BatesVnynuu3562 [address] Roadblin [place] [id number] Protein Ql (U) Negative Normal [facility] Medicine; [facility] Internal Medicine Work Phone: Comment on above: PATIENT WAS FASTINGP ERFORMED BY: CHRIS UgarteMercy Hospital Springfield Pperib2460 [facility] [id number] Specific gravity (U) [Rel density] 1.022 1 Normal 1.005-1.03 0 [facility] Internal Medicine Work Phone: Comment on above: PATIENT WAS FASTINGP ERFORMED BY: CHRIS ToritoGuerrero BatesWbwuxi[address] [facility] [id number] Urobilinogen (U) [Mass/Vol] 0.2 mg/dL Normal 0.2-1.0 [facility]; [facility] Internal Medicine Work Phone: Comment on above: PATIENT WAS FASTINGP ERFORMED BY: CHRIS [facility] Qmzmmj[address] [facility]in [place] [id number] Urobilinogen Test strip (U) [Mass/Vol] 0.2 mg/dL Normal 0.2-1.0 [facility] Work Phone: Comment on above: PATIENT WAS FASTINGP ERFORMED BY: CHRIS LabMercy [facility] Aafokx[address] [facility]bl[facility] [place] [id number] Metabolic Panel, Basic (8004 8)Ordered By: Paper Baler on 09-03-2018 Calcium mass conc 10.0 mg/dL Normal 8.7-10.3 Compreh ensive Internal Medicine Work Phone: Comment on above: PATIENT NOT FASTINGP ERFORMED BY: CHRIS LabCotrudi SanchezTuvoyo[address] [facility]bl[facility] [place] [id number] Chloride molar conc 99 mmol/L Normal 96-106 Compr ehensive Internal Medicine Work Phone: Comment on above: PATIENT NOT FASTINGP ERFORMED BY: CHRIS [facility] Dawdzh[address] [facility] [id number] CO2 molar conc 25 mmol/L Normal 20-29 [facility] Work Phone: Comment on above: PATIENT NOT FASTINGP ERFORMED BY: CHRIS LabCotrudi SanchezWgkbkg7[address] [facility] [id number] Creatinine mass conc 0.44 mg/dL Abnormal 0.57-1.00 Comp rehensive Internal Medicine Work Phone: Comment on above: PATIENT NOT FASTINGP ERFORMED BY: CHRIS [facility] Korloj[address] [facility] [id number] GFR/1.73 sq M predicted among blacks CKD-EPI vol rate/area (S/P/Bld) 126 mL/min/1.73 Normal Comprehensiv e Internal Medicine Work Phone: Comment on above: PATIENT NOT FASTINGP ERFORMED BY: CHRIS [facility] Wffnzt[address] [facility] [id number] GFR/1.73 sq M predicted among non-blacks CKD-EPI vol rate/area (S/P/Bld) 109 mL/min/1.73 Normal [facility] Work Phone: Comment on above: PATIENT NOT FASTINGP ERFORMED BY: CHRIS [facility] Rtuzrm[address] [facility]in [place] [id number] Glucose mass conc 86 mg/dL Normal 65-99 Compreh ensive Internal Medicine Work Phone: Comment on above: PATIENT NOT FASTINGP ERFORMED BY: CHRIS [facility] Hnqfxh[address] [facility]in [place] [id number] Potassium molar conc 4.3 mmol/L Normal 3.5-5.2 Comp rehensive Internal Medicine Work Phone: Comment on above: PATIENT NOT FASTINGP ERFORMED BY: CHRIS ToritoGuerrero Piyxsz5671 [facility] [id number] Sodium molar conc 140 mmol/L Normal 134-144 Compreh ensive Internal Medicine Work Phone: Comment on above: PATIENT NOT FASTINGP ERFORMED BY: CHRIS Bateslin6370 [facility] [id number] Urea nitrogen mass conc 13 mg/dL Normal 8-27 [facility] Work Phone: Comment on above: PATIENT NOT FASTINGP ERFORMED BY: CHRIS ToritoGuerrero Yymqqq8093 [facility] [id number] Urea nitrogen/Creatinine mass ratio 30 mg/mg Abnormal 12- [facility] Work Phone: Comment on above: PATIENT NOT FASTINGP ERFORMED BY: CHRIS Bateslin6370 [facility] [id number] CALCIUM, IONIZED ([id number])Orde red By: Paper Baler on 08-30-2017 Calcium.ionized Ion-selective membrane electrode (ISE) mass conc 5.6 mg/dL Normal 4.5-5.6 [facility] Work Phone: Comment on above: PATIENT WAS FASTINGP ERFORMED BY: CHRIS Lay Fgcyuk9177 [facility] [id number] Metabolic Panel, Comprehensi ve (26081)Ordered By: Paper Baler on 08-30-2017 Albumin mass conc 4.4 g/dL Normal 3.6-4.8 Compreh ensive Internal Medicine Work Phone: Comment on above: PATIENT WAS FASTINGP ERFORMED BY: CHRIS ToritoGuerrero BatesEuaiyu4874 [facility] [id number] Information: NURSE DRAW Albumin/Globulin mass ratio 1.4 {ratio} Normal 1.2-2.2 [facility] Work Phone: Comment on above: PATIENT WAS FASTINGP ERFORMED BY: CHRIS ToritoGuerrero BatesLswztu5996 [facility] [id number] Information: NURSE DRAW ALP [Catalytic activity/Vol] 81 U/L Normal 39-117 [facility] Internal Medicine; [facility] Internal Medicine Work Phone: Comment on above: PATIENT WAS FASTINGP ERFORMED BY: CHRIS Bateslin6370 [facility] [id number] Information: NURSE DRAW ALP enzyme act/vol 81 [iU]/L Normal 39-117 [facility] Internal Medicine Work Phone: Comment on above: PATIENT WAS FASTINGP ERFORMED BY: CHRIS Bateslin6370 [facility] [id number] Information: NURSE DRAW ALT [Catalytic activity/Vol] 22 U/L Normal 0-32 [facility] Internal Medicine; [facility] Internal Medicine Work Phone: Comment on above: PATIENT WAS FASTINGP ERFORMED BY: CHRIS Bateslin6370 [facility] [id number] Information: NURSE DRAW ALT enzyme act/vol 22 [iU]/L Normal 0-32 [facility] Internal Medicine Work Phone: Comment on above: PATIENT WAS FASTINGP ERFORMED BY: CHRIS Bateslin6370 [facility] [id number] Information: NURSE DRAW AST [Catalytic activity/Vol] 18 U/L Normal 0-40 [facility] Internal Medicine; [facility] Internal Medicine Work Phone: Comment on above: PATIENT WAS FASTINGP ERFORMED BY: CHRIS Bateslin6370 [facility] [id number] Information: NURSE DRAW AST enzyme act/vol 18 [iU]/L Normal 0-40 [facility] Internal Medicine Work Phone: Comment on above: PATIENT WAS FASTINGP ERFORMED BY: CHRIS Bateslin6370 [facility] [id number] Information: NURSE DRAW Bilirubin mass conc 0.6 mg/dL Normal 0.0-1.[address] [facility] Internal Medicine Work Phone: Comment on above: PATIENT WAS FASTINGP ERFORMED BY: CHRIS Cacerestrudi BatesQucmgh3529 [facility] [id number] Information: NURSE DRAW Calcium mass conc 10.0 mg/dL Normal 8.7-10.3 Compreh ensive Internal Medicine Work Phone: Comment on above: PATIENT WAS FASTINGP ERFORMED BY: CHRIS LabGuerrero BatesPepctr3586 [facility] [id number] Information: NURSE DRAW Chloride molar conc 100 mmol/L Normal 96-106 Compr ehensive Internal Medicine Work Phone: Comment on above: PATIENT WAS FASTINGP ERFORMED BY: CHRIS [facility] Wutklx1362 [facility] [id number] Information: NURSE DRAW CO2 molar conc 20 mmol/L Normal 18-29 [facility] Medicine Work Phone: Comment on above: PATIENT WAS FASTINGP ERFORMED BY: CHRIS Bateslin6370 [facility] [id number] Information: NURSE DRAW Creatinine mass conc 0.52 mg/dL Abnormal 0.57-1.00 Comp rehensive Internal Medicine Work Phone: Comment on above: PATIENT WAS FASTINGP ERFORMED BY: CHRIS Bateslin6370 [facility] [id number] Information: NURSE DRAW GFR/1.73 sq M predicted among blacks CKD-EPI vol rate/area (S/P/Bld) 120 mL/min/1.73 Normal Comprehensiv e Internal Medicine Work Phone: Comment on above: PATIENT WAS FASTINGP ERFORMED BY: CHRIS [facility] Dssjhe4131 [facility] [id number] Information: NURSE DRAW GFR/1.73 sq M predicted among non-blacks CKD-EPI vol rate/area (S/P/Bld) 104 mL/min/1.73 Normal [facility] Work Phone: Comment on above: PATIENT WAS FASTINGP ERFORMED BY: CHRIS LabGuerrero BatesBshzog7572 [facility] [id number] Information: NURSE DRAW Globulin Calculated mass conc (S) 3.2 g/dL Normal 1.5-4.5 [facility] Work Phone: Globulin mass conc (S) 3.2 g/dL Normal 1.5-4.5 [facility] Work Phone: Comment on above: PATIENT WAS FASTINGP ERFORMED BY: [facility]Asc[facility]6370 [facility] [id number] Information: NURSE DRAW Glucose mass conc 89 mg/dL Normal 65-99 Compreh ensive Internal Medicine Work Phone: Comment on above: Specimen received he molyzed. Clinical correlation indicated. PATIENT WAS FASTINGP ERFORMED BY: LabReginald Ville 0533770 [facility] [id number] Information: NURSE DRAW Potassium molar conc 4.0 mmol/L Normal 3.5-5.2 Comp rehensive Internal Medicine Work Phone: Comment on above: Specimen received he molyzed. Clinical correlation indicated. PATIENT WAS FASTINGP ERFORMED BY: [place] 2773470 [facility] [id number] Information: NURSE DRAW Protein mass conc 7.6 g/dL Normal 6.0-8.5 Compreh ensive Internal Medicine Work Phone: Comment on above: PATIENT WAS FASTINGP ERFORMED BY: [facility] Htauvc7417 [facility] [id number] Information: NURSE DRAW Sodium molar conc 142 mmol/L Normal 134-144 Compreh ensive Internal Medicine Work Phone: Comment on above: PATIENT WAS FASTINGP ERFORMED BY: [facility] Emvuxw7620 [facility] [id number] Information: NURSE DRAW Urea nitrogen mass conc 16 mg/dL Normal 8-27 [facility] Work Phone: Comment on above: PATIENT WAS FASTINGP ERFORMED BY: [facility] Hhkxrn8846 [facility] [id number] Information: NURSE DRAW Urea nitrogen/Creatinine mass ratio 31 mg/mg Abnormal 12-28 [facility] Work Phone: Comment on above: PATIENT WAS FASTINGP ERFORMED BY: CHRIS [facility] Vfzyyb1201 [address]z RoadDublin [place] [id number] Information: NURSE DRAW PARATHORMONE ([id number])Ordered By: Paper Baler on 08-30-2017 Parathyrin.intact mass conc 23 pg/mL Normal 15-65 [facility] Work Phone: Comment on above: PATIENT WAS FASTINGP ERFORMED BY: CHRIS [facility] Lhkdho5274 [address] RoadDublin [place] [id number] URINALYSIS ([id number])Ordered By : Paper Baler on 08-30-2017 Appearance Nom (U) Clear Normal Compre hensive Internal Medicine Work Phone: Comment on above: PATIENT WAS FASTINGP ERFORMED BY: CHRIS [facility] Oevtne8159 [address] RoadDublin [place] [id number] Bilirubin Ql (U) Negative Normal Comprehe nsive Internal Medicine Work Phone: Comment on above: PATIENT WAS FASTINGP ERFORMED BY: CHRIS [facility] Tvtnmd0377 [address] RoadDublin [place] [id number] Bilirubin Ql (U) Negative Normal Comprehe nsive Internal Medicine; [facility] Work Phone: Comment on above: PATIENT WAS FASTINGP ERFORMED BY: CHRIS [facility] Smayjx5337 [address] RoadDublin [place] [id number] Color Nom (U) Yellow Normal Comprehensi ve Internal Medicine Work Phone: Comment on above: PATIENT WAS FASTINGP ERFORMED BY: CHRIS [facility] Snitqh7049 [address] RoadDublin [place] [id number] Glucose Ql (U) Negative Normal [facility] Work Phone: Comment on above: PATIENT WAS FASTINGP ERFORMED BY: CHRIS [facility] Niwzec1796 [address] RoadDublin [place] [id number] Glucose Ql (U) Negative Normal Comprehens [facility]; [facility] Work Phone: Comment on above: PATIENT WAS FASTINGP ERFORMED BY: CHRIS [facility] Jbseml8591 [address] RoadDublin [place] [id number] Hemoglobin Ql (U) Negative Normal Compreh ensive Internal Medicine Work Phone: Comment on above: PATIENT WAS FASTINGP ERFORMED BY: CHIRS [facility] Pqfgvg6404 [address] RoadDublin [place] [id number] Hemoglobin Ql (U) Negative Normal Compreh ensive Internal Medicine; [facility] Work Phone: Comment on above: PATIENT WAS FASTINGP ERFORMED BY: CHRIS [facility] Nnhvqh0442 [address] RoadDublin [place] [id number] Hemoglobin Test strip Ql (U) Negative Normal [facility] Work Phone: Ketones Ql (U) Negative Normal [facility] Work Phone: Comment on above: PATIENT WAS FASTINGP ERFORMED BY: CHRIS LabCotrudi BatesTuwgdv1936 [address] RoadDublin [place] [id number] Ketones Ql (U) Negative Normal Comprehens [facility]; [facility] Work Phone: Comment on above: PATIENT WAS FASTINGP ERFORMED BY: CHRIS [facility] Jwaxkk9686 [address] RoadDublin [place] [id number] Leukocyte esterase Test strip Ql (U) Negative Normal [facility] Work Phone: Comment on above: PATIENT WAS FASTINGP ERFORMED BY: CHRIS [facility] Ryydar0643 [address] RoadDublin [place] [id number] Leukocyte esterase Test strip Ql (U) Negative Normal [facility]; [facility] Work Phone: Comment on above: PATIENT WAS FASTINGP ERFORMED BY: CHRIS [facility] Vsvkfo6917 [address] RoadDublin [place] [id number] Microscopic observation LM Nom (Urine sed) MICNIP Normal [facility] Work Phone: Comment on above: Microscopic not doug cated and not performed. PATIENT WAS FASTINGP ERFORMED BY: CHRIS [facility] Pfuqpp4526 [address] RoadDublin [place] [id number] Nitrite Ql (U) Negative Normal Comprehens [facility] Medicine Work Phone: Comment on above: PATIENT WAS FASTINGP ERFORMED BY: CHRIS Sanchez6370 [address]Dublin [place] [id number] Nitrite Ql (U) Negative Normal Comprehens [facility]; [facility] Work Phone: Comment on above: PATIENT WAS FASTINGP ERFORMED BY: CHRIS Sanchez6370 [address]Dublin [place] [id number] Nitrite Test strip Ql (U) Negative Normal [facility] Work Phone: pH (U) 6.0 [pH] Normal 5.0-7.5 [facility] Work Phone: Comment on above: PATIENT WAS FASTINGP ERFORMED BY: CHRIS Sanchez6370 [address]Dublin [place] [id number] pH Test strip (U) 6.0 [pH] Normal 5.0-7.5 Compreh ensive Internal Medicine Work Phone: Protein Ql (U) Negative Normal Comprehens [facility] Medicine Work Phone: Comment on above: PATIENT WAS FASTINGP ERFORMED BY: CHRIS Sanchez6370 [address]Dublin [place] [id number] Protein Ql (U) Negative Normal Comprehens [facility]; [facility] Work Phone: Comment on above: PATIENT WAS FASTINGP ERFORMED BY: CHRIS Sanchez6370 [address]Dublin [place] [id number] Protein Test strip Ql (U) Negative Normal [facility] Work Phone: Specific gravity Relative Density (U) 1.015 1 Normal 1.005-1.03 0 [facility] Work Phone: Comment on above: PATIENT WAS FASTINGP ERFORMED BY: CHRIS Bateslin6[address]Dublin [place] [id number] Urobilinogen (U) [Mass/Vol] 0.2 mg/dL Normal 0.2-1.0 [facility]; [facility] Work Phone: Comment on above: PATIENT WAS FASTINGP ERFORMED BY: CHRIS LabGuerrero BatesAtudbi6433 [address] RoadDublin [place] [id number] Urobilinogen Test strip mass conc (U) 0.2 mg/dL Normal 0.2-1.0 Comprehensiv e Internal Medicine Work Phone: Comment on above: PATIENT WAS FASTINGP ERFORMED BY: CHRIS [facility] Uqtdpb2621 [address] RoadDublin [place] [id number] C-REACTIVE PROTEIN ([id number])Or dered By: Paper Baler on 02-09-2017 CRP mass conc 2.6 mg/L Normal 0.0-4.9 Comprehensi ve Internal Medicine Work Phone: Comment on above: PATIENT NOT FASTINGP ERFORMED BY: CHRIS LabCotrudi BatesMpsonx3634 Game[address] Roadblin [place] [id number] SED RATE ERYTHROCYTE ([id number]) Ordered By: Paper Baler on 02-09-2017 ESR Velocity (Bld) 10 mm/h Normal 0-40 [facility] Internal Medicine Work Phone: Comment on above: PATIENT NOT FASTINGP ERFORMED BY: CHRIS [facility] Odxpcl5295 [address] RoadDublin [place] [id number] TSH ([id number])Ordered By: Syste m Labor Contractor on 02-09-2017 Thyrotropin Qn 1.920 {uIU/mL} Normal 0.450-4.50 0 [facility] Internal Medicine Work Phone: Comment on above: PATIENT NOT FASTINGP ERFORMED BY: CHRIS [facility] Oqoxmx5116 [address] RoadDublin [place] [id number] Vitamin B-12 (cyanocobalamin ) (60052)Ordered By: Paper Baler on 02-09-2017 Cobalamin (Vitamin B12) mass conc 457 pg/mL Normal 211-946 [facility] Work Phone: Comment on above: PATIENT NOT FASTINGP ERFORMED BY: CHRIS [facility] Ltqvdh4718 [address] RoadDublin [place] [id number] CALCIFIDIOL (65602) VIT D 25 Ordered By: Paper Baler on 02-02-2017 25-Hydroxyvitamin D2+25-Hydroxyvitamin D3 mass conc 25.3 ng/mL Abnormal 30.0-100.0 [facility] Work Phone: Comment on above: Vitamin D deficiency has been defined by the [place] of[place] and an Endocrine Society practice guideline as alevel of serum 25-OH vitamin D less than 20 ng/mL (1,2).The Endocrine Society went on to further define vitamin Dinsufficiency as a level between 21 and 29 ng/mL (2).1. IOM ([place]). 2010. Dietary reference intakes for calcium and D. [place]: The National Academies Press.2. Amara MF, Pta NEGRON, Enrike MICHAELS, et al. Evaluation, treatment, and prevention of vitamin D deficiency: an Endocrine Society clinical practice guideline. JCEM. 2010; 96(7):1911-30. PATIENT WAS FASTINGP ERFORMED BY: [facility]ul SystemsAdventHealth [facility]ville [id number] CBC WITH MANUAL DIFF (96702) Ordered By: Paper Baler on 02-02-2017 Basophils #/vol (Bld) 0.0 {x10E3/uL} Normal 0.0-0.2 [facility] Work Phone: Comment on above: PATIENT WAS FASTINGP ERFORMED BY: [facility] SystemsAd[facility] [id number] Information: NURSE DRAW Basophils (Bld) [#/Vol] 0.0 10*3/uL Normal 0.0-0.2 [facility] Internal Medicine; [facility] Work Phone: Comment on above: PATIENT WAS FASTINGP ERFORMED BY: 1[employer] [facility] [id number] Information: NURSE DRAW Basophils Auto #/vol (Bld) 0.0 {x10E3/uL} Normal 0.0-0.2 [facility] Work Phone: Basophils/100 WBC (Bld) 1 % Normal [facility] Work Phone: Comment on above: PATIENT WAS FASTINGP ERFORMED BY: Genesco70 GamezAlvin J. [facility] [id number] Information: NURSE DRAW Basophils/100 WBC Auto (Bld) 1 % Normal [facility] Work Phone: Eosinophils #/vol (Bld) 0.2 {x10E3/uL} Normal 0.0-0.4 [facility] Work Phone: Comment on above: PATIENT WAS FASTINGP ERFORMED BY: CHRIS ID QuantiquePatNicholas [place] [id number] [facility] [id number] Information: NURSE DRAW Eosinophils (Bld) [#/Vol] 0.2 10*3/uL Normal 0.0-0.4 [facility]; [facility] Work Phone: Comment on above: PATIENT WAS FASTINGP ERFORMED BY: CHRIS LabReginald V[place] [id number] [facility] [id number] Information: NURSE DRAW Eosinophils Auto #/vol (Bld) 0.2 {x10E3/uL} Normal 0.0-0.4 [facility] Work Phone: Eosinophils/100 WBC (Bld) 2 % Normal [facility] Work Phone: Comment on above: PATIENT WAS FASTINGP ERFORMED BY: CHRIS ID QuantiqueReginald V[place] [id number] [facility] [id number] Information: NURSE DRAW Eosinophils/100 WBC Auto (Bld) 2 % Normal [facility] Work Phone: Erythrocyte distribution width Auto Ratio (RBC) 15.2 % Normal 12.3-15.4 [facility] Work Phone: Erythrocyte distribution width Ratio (RBC) 15.2 % Normal 12.3-15.4 [facility] Work Phone: Comment on above: PATIENT WAS FASTINGP ERFORMED BY: CHRIS [place] [id number] [facility] [id number] Information: NURSE DRAW Hematocrit Auto Volume Fraction (Bld) 45.4 % Normal 34.0-46.6 Comprehens domingo Internal Medicine Work Phone: Hematocrit Volume Fraction (Bld) 45.4 % Normal 34.0-46.6 [facility] Work Phone: Comment on above: PATIENT WAS FASTINGP ERFORMED BY: [address] [id number] Information: NURSE DRAW Hemoglobin mass conc (Bld) 15.5 g/dL Normal 11.1-15.9 [facility] Work Phone: Comment on above: PATIENT WAS FASTINGP ERFORMED BY: [address] [id number] Information: NURSE DRAW Immature granulocytes #/vol (Bld) 0.0 {x10E3/uL} Normal 0.0-0.1 [facility] Work Phone: Comment on above: PATIENT WAS FASTINGP ERFORMED BY: [address] [id number] Information: NURSE DRAW Immature granulocytes (Bld) [#/Vol] 0.0 10*3/uL Normal 0.0-0.1 [facility]; [facility] Work Phone: Comment on above: PATIENT WAS FASTINGP ERFORMED BY: [address] [id number] Information: NURSE DRAW Immature granulocytes/100 WBC (Bld) 0 % Normal [facility] Work Phone: Comment on above: PATIENT WAS FASTINGP ERFORMED BY: [address] [id number] Information: NURSE DRAW Lymphocytes #/vol (Bld) 2.2 {x10E3/uL} Normal 0.7-3.1 [facility] Work Phone: Comment on above: PATIENT WAS FASTINGP ERFORMED BY: [address] [id number] Information: NURSE DRAW Lymphocytes (Bld) [#/Vol] 2.2 10*3/uL Normal 0.7-3.1 [facility]; [facility] Work Phone: Comment on above: PATIENT WAS FASTINGP ERFORMED BY: [address] [id number] Information: NURSE DRAW Lymphocytes Auto #/vol (Bld) 2.2 {x10E3/uL} Normal 0.7-3.1 [facility] Work Phone: Lymphocytes/100 WBC (Bld) 30 % Normal [facility] Work Phone: Comment on above: PATIENT WAS FASTINGP ERFORMED BY: CHRIS [address] [id number] Information: NURSE DRAW Lymphocytes/100 WBC Auto (Bld) 30 % Normal [facility] Work Phone: MCH Auto Entitic mass (RBC) 29.2 pg Normal 26.6-33.0 [facility] Work Phone: MCH Entitic mass (RBC) 29.2 pg Normal 26.6-33.0 [facility] Work Phone: Comment on above: PATIENT WAS FASTINGP ERFORMED BY: CHRIS [facility] HospitalGu[facility] [address] [id number] Information: NURSE DRAW MCHC Auto mass conc (RBC) 34.1 g/dL Normal 31.5-35.7 [facility] Work Phone: MCHC mass conc (RBC) 34.1 g/dL Normal 31.5-35.7 [facility] Internal Medicine Work Phone: Comment on above: PATIENT WAS FASTINGP ERFORMED BY: CHRIS [facility] HospitalGuerrero [address] [id number] Information: NURSE DRAW MCV Auto Entitic volume (RBC) 86 fL Normal 79-97 [facility] Work Phone: MCV Entitic volume (RBC) 86 fL Normal 79-97 [facility] Work Phone: Comment on above: PATIENT WAS FASTINGP ERFORMED BY: CHRIS [facility] HospitalGu[facility] [address] [id number] Information: NURSE DRAW Monocytes #/vol (Bld) 0.5 {x10E3/uL} Normal 0.1-0.9 [facility] Work Phone: Comment on above: PATIENT WAS FASTINGP ERFORMED BY: CHRIS [facility] HospitalPatNicholas Ville [id number] [facility] [id number] Information: NURSE DRAW Monocytes (Bld) [#/Vol] 0.5 10*3/uL Normal 0.1-0.9 [facility]; [facility] Work Phone: Comment on above: PATIENT WAS FASTINGP ERFORMED BY: CHRIS [facility] HospitalPat Cdtafm[address] [id number] Information: NURSE DRAW Monocytes Auto #/vol (Bld) 0.5 {x10E3/uL} Normal 0.1-0.9 [facility] Work Phone: Monocytes/100 WBC (Bld) 7 % Normal [facility] Work Phone: Comment on above: PATIENT WAS FASTINGP ERFORMED BY: CHRIS [facility] HospitalPat Olplqp230[address] [id number] Information: NURSE DRAW Monocytes/100 WBC Auto (Bld) 7 % Normal [facility] Work Phone: Neutrophils #/vol (Bld) 4.4 {x10E3/uL} Normal 1.4-7.0 [facility] Work Phone: Comment on above: PATIENT WAS FASTINGP ERFORMED BY: CHRIS Bateslin6370 [facility] [id number] Information: NURSE DRAW Neutrophils (Bld) [#/Vol] 4.4 10*3/uL Normal 1.4-7.0 [facility]; [facility] Work Phone: Comment on above: PATIENT WAS FASTINGP ERFORMED BY: CHRIS [place] [id number] [facility] [id number] Information: NURSE DRAW Neutrophils Auto #/vol (Bld) 4.4 {x10E3/uL} Normal 1.4-7.0 [facility] Work Phone: Neutrophils/100 WBC (Bld) 60 % Normal [facility] Work Phone: Comment on above: PATIENT WAS FASTINGP ERFORMED BY: [place] [id number] [facility] [id number] Information: NURSE DRAW Neutrophils/100 WBC Auto (Bld) 60 % Normal [facility] Work Phone: Platelets #/vol (Bld) 295 {x10E3/uL} Normal 150-379 [facility] Work Phone: Comment on above: PATIENT WAS FASTINGP ERFORMED BY: [address] [id number] Information: NURSE DRAW Platelets (Bld) [#/Vol] 295 10*3/uL Normal 150-379 [facility]; [facility] Work Phone: Comment on above: PATIENT WAS FASTINGP ERFORMED BY: [address] [id number] Information: NURSE DRAW Platelets Auto #/vol (Bld) 295 {x10E3/uL} Normal 150-379 [facility] Work Phone: RBC #/vol (Bld) 5.31 {x10E6/uL} Abnormal 3.77-5.28 [facility]: Comment on above: PATIENT WAS FASTINGP ERFORMED BY: [address] [id number] Information: NURSE DRAW RBC (Bld) [#/Vol] 5.31 10*6/uL Abnormal 3.77-5.28 Compr ensive Internal Medicine; [facility] Work Phone: Comment on above: PATIENT WAS FASTINGP ERFORMED BY: [address] [id number] Information: NURSE DRAW RBC Auto #/vol (Bld) 5.31 {x10E6/uL} Abnormal 3.77-5.28 [facility] Work Phone: WBC #/vol (Bld) 7.4 {x10E3/uL} Normal 3.4-10.8 Compr ensive Internal Medicine Work Phone: Comment on above: PATIENT WAS FASTINGP ERFORMED BY: CHRIS Alireza Sanchez6370 [facility] [id number] Information: NURSE DRAW WBC (Bld) [#/Vol] 7.4 10*3/uL Normal 3.4-10.8 [facility] Internal Medicine; [facility] Work Phone: Comment on above: PATIENT WAS FASTINGP ERFORMED BY: CHRIS LabGuerrero BatesVwpwum6867 [facility] [id number] Information: NURSE DRAW WBC Auto #/vol (Bld) 7.4 {x10E3/uL} Normal 3.4-10.8 [facility] Work Phone: HgA1C , Office ([id number])Ordere d By: ARIEL Bradshaw on 02-02-2017 Hemoglobin A1c/Hemoglobin.total mass fraction (Bld) 5.0 % Normal 4.6 - 7.1 Comprehensiv e Internal Medicine Work Phone: Lipid Panel ([id number])Ordered B y: Paper Baler on 02-02-2017 Cholesterol in HDL mass conc 45 mg/dL Normal [facility] Work Phone: Comment on above: PATIENT WAS FASTINGP ERFORMED BY: CHRIS ToritoGuerrero Haovfk8923 [facility] [id number] Cholesterol in LDL mass conc 102 mg/dL Abnormal 0-99 [facility] Work Phone: Comment on above: PATIENT WAS FASTINGP ERFORMED BY: CHRIS LabGuerrero BatesCrakvm1131 [facility] [id number] Cholesterol in LDL/Cholesterol in HDL mass ratio 2.3 {ratio_units} Normal 0.0-3.2 [facility] Work Phone: Comment on above: LDL/HDL Ratio Men Wo men 1/2 Avg.Risk 1.0 1.5 Avg.Risk 3.6 3.2 2X Avg.Risk 6.2 5.0 3X Avg.Risk 8.0 6.1 PATIENT WAS FASTINGP ERFORMED BY: CHRIS LabPat Yzkzfh8653 [facility] [id number] Cholesterol in VLDL mass conc 36 mg/dL Normal 5-40 [facility] Work Phone: Comment on above: PATIENT WAS FASTINGP ERFORMED BY: CHRIS [facility] Qieufd2035 [address]z RoadDublin [place] [id number] Cholesterol mass conc 183 mg/dL Normal 100-199 Com prehensive Internal Medicine Work Phone: Comment on above: PATIENT WAS FASTINGP ERFORMED BY: CHRIS [facility] Kfwoen2888 Gamez RoadDublin [place] [id number] Triglyceride mass conc 179 mg/dL Abnormal 0-149 [facility] Work Phone: Comment on above: PATIENT WAS FASTINGP ERFORMED BY: CHRIS [facility] Dmwraj5578 Gamez RoadDublin [place] [id number] Metabolic Panel, Comprehensi ve (12372)Ordered By: Paper Baler on 02-02-2017 Albumin mass conc 4.3 g/dL Normal 3.6-4.8 Compreh ensive Internal Medicine Work Phone: Comment on above: PATIENT WAS FASTINGP ERFORMED BY: CHRIS [facility] Hpdnkz8517 Gamez RoadDublin [place] [id number] Albumin/Globulin mass ratio 1.4 {ratio} Normal 1.2-2.2 [facility] Work Phone: Comment on above: PATIENT WAS FASTINGP ERFORMED BY: CHRIS [facility] Qizzfq8138 [address]z RoadDublin [place] [id number] ALP [Catalytic activity/Vol] 65 U/L Normal 39-117 [facility]; [facility] Work Phone: Comment on above: PATIENT WAS FASTINGP ERFORMED BY: CHRIS [facility] Eeryia2413 [address]z RoadDublin [place] [id number] ALP enzyme act/vol 65 [iU]/L Normal 39-117 Compre [facility] Internal [facility] Work Phone: Comment on above: PATIENT WAS FASTINGP ERFORMED BY: CHRIS [facility] Tcllxo9435 Gamez RoadDublin [place] [id number] ALT [Catalytic activity/Vol] 27 U/L Normal 0-32 [facility]; [facility] Work Phone: Comment on above: PATIENT WAS FASTINGP ERFORMED BY: CHRIS [facility] Nimoqh5967 [address]z RoadDublin [place] [id number] ALT enzyme act/vol 27 [iU]/L Normal 0-32 [facility] Internal Medicine Work Phone: Comment on above: PATIENT WAS FASTINGP ERFORMED BY: CB [facility] Dommon4020 [address]z RoadDublin [place] [id number] AST [Catalytic activity/Vol] 16 U/L Normal 0-40 [facility]; [facility] Internal Medicine Work Phone: Comment on above: PATIENT WAS FASTINGP ERFORMED BY: CHRIS [facility] Ilvyjj9872 [address]z RoadDublin [place] [id number] AST enzyme act/vol 16 [iU]/L Normal 0-40 [facility] Internal Medicine Work Phone: Comment on above: PATIENT WAS FASTINGP ERFORMED BY: CHRIS [facility] Kjyctr9072 [address]z RoadDublin [place] [id number] Bilirubin mass conc 0.8 mg/dL Normal 0.0-1.2 Compr [facility] Internal Medicine Work Phone: Comment on above: PATIENT WAS FASTINGP ERFORMED BY: CHRIS [facility] Iynptj0190 [address] RoadDublin [place] [id number] Calcium mass conc 10.2 mg/dL Normal 8.7-10.3 Compreh [facility] Internal Medicine Work Phone: Comment on above: PATIENT WAS FASTINGP ERFORMED BY: CHRIS [facility] Evgdoj6162 [address] RoadDublin [place] [id number] Chloride molar conc 100 mmol/L Normal 96-106 Compr ensive Internal Medicine Work Phone: Comment on above: PATIENT WAS FASTINGP ERFORMED BY: CB [facility] Labmpi9445 [address] RoadDublin [place] [id number] CO2 molar conc 22 mmol/L Normal 18-29 Comprehens domingo Internal Medicine Work Phone: Comment on above: PATIENT WAS FASTINGP ERFORMED BY: CHRIS [facility] Wgqqcu8154 [address]z RoadDublin [place] [id number] Creatinine mass conc 0.47 mg/dL Abnormal 0.57-1.00 Comp rehensive Internal Medicine Work Phone: Comment on above: PATIENT WAS FASTINGP ERFORMED BY: CHRIS LabPat Yoowwz8181 [facility] [id number] GFR/1.73 sq M predicted among blacks CKD-EPI vol rate/area (S/P/Bld) 124 mL/min/1.73 Normal Comprehensiv e Internal Medicine Work Phone: Comment on above: PATIENT WAS FASTINGP ERFORMED BY: CHRIS LabAsc[facility]6370 [facility] [id number] GFR/1.73 sq M predicted among non-blacks CKD-EPI vol rate/area (S/P/Bld) 108 mL/min/1.73 Normal [facility] Work Phone: Comment on above: PATIENT WAS FASTINGP ERFORMED BY: CHRIS [facility]6370 [facility] [id number] Globulin Calculated mass conc (S) 3.1 g/dL Normal 1.5-4.5 [facility] Work Phone: Globulin mass conc (S) 3.1 g/dL Normal 1.5-4.5 [facility] Work Phone: Comment on above: PATIENT WAS FASTINGP ERFORMED BY: CHRIS LabAsc[facility] Hospital6370 [facility] [id number] Glucose mass conc 94 mg/dL Normal 65-99 Compreh ensive Internal Medicine Work Phone: Comment on above: PATIENT WAS FASTINGP ERFORMED BY: LabCo Gyanoy1075 [facility] [id number] Potassium molar conc 3.8 mmol/L Normal 3.5-5.2 Comp rehensive Internal Medicine Work Phone: Comment on above: PATIENT WAS FASTINGP ERFORMED BY: LabCo Ayyfqv5756 [facility] [id number] Protein mass conc 7.4 g/dL Normal 6.0-8.5 Compreh ensive Internal Medicine Work Phone: Comment on above: PATIENT WAS FASTINGP ERFORMED BY: LabCoThe Rehabilitation Hospital of Tinton FallsRsgrea0436 [facility] [id number] Sodium molar conc 142 mmol/L Normal 134-144 Compreh ensive Internal Medicine Work Phone: Comment on above: PATIENT WAS FASTINGP ERFORMED BY: LabCoThe Rehabilitation Hospital of Tinton FallsGevuwa0347 [facility] [id number] Urea nitrogen mass conc 10 mg/dL Normal 8- [facility] Work Phone: Comment on above: PATIENT WAS FASTINGP ERFORMED BY: LabAscension St. [facility] Hospital6370 [facility] [id number] Urea nitrogen/Creatinine mass ratio 21 mg/mg Normal 08-23 [facility] Work Phone: Comment on above: PATIENT WAS FASTINGP ERFORMED BY: LabAscension St. [facility] Hospital6370 [facility] [id number] CBC with auto diff ([id number])Or dered By: Paper Baler on 08-10-2015 Basophils #/vol (Bld) 0.0 {x10E3/uL} Normal 0.0-0.2 [facility] Work Phone: Comment on above: PATIENT WAS FASTINGP ERFORMED BY: [facility]6370 [facility] [id number] Information: [id number] Basophils (Bld) [#/Vol] 0.0 10*3/uL Normal 0.0-0.2 [facility]; [facility] Work Phone: Comment on above: PATIENT WAS FASTINGP ERFORMED BY: [facility]6370 [facility] [id number] Information: [id number] Basophils Auto #/vol (Bld) 0.0 {x10E3/uL} Normal 0.0-0.2 [facility] Work Phone: Basophils/100 WBC (Bld) 0 % Normal [facility] Work Phone: Comment on above: PATIENT WAS FASTINGP ERFORMED BY: [facility]6370 [facility] [id number] Information: [id number] Basophils/100 WBC Auto (Bld) 0 % Normal [facility] Work Phone: Eosinophils #/vol (Bld) 0.3 {x10E3/uL} Normal 0.0-0.4 [facility] Work Phone: Comment on above: PATIENT WAS FASTINGP ERFORMED BY: [address] [id number] Information: [id number] Eosinophils (Bld) [#/Vol] 0.3 10*3/uL Normal 0.0-0.4 [facility]; [facility] Work Phone: Comment on above: PATIENT WAS FASTINGP ERFORMED BY: [place] 2773470 [facility] [id number] Information: [id number] Eosinophils Auto #/vol (Bld) 0.3 {x10E3/uL} Normal 0.0-0.4 [facility] Work Phone: Eosinophils/100 WBC (Bld) 3 % Normal [facility] Work Phone: Comment on above: PATIENT WAS FASTINGP ERFORMED BY: [address] [id number] Information: [id number] Eosinophils/100 WBC Auto (Bld) 3 % Normal [facility] Work Phone: Erythrocyte distribution width Auto Ratio (RBC) 15.3 % Normal 12.3-15.4 [facility] Work Phone: Erythrocyte distribution width Ratio (RBC) 15.3 % Normal 12.3-15.4 [facility] Work Phone: Comment on above: PATIENT WAS FASTINGP ERFORMED BY: [place] 2773470 [facility] [id number] Information: [id number] Hematocrit Auto Volume Fraction (Bld) 46.5 % Normal 34.0-46.6 [facility] Internal Medicine Work Phone: Hematocrit Volume Fraction (Bld) 46.5 % Normal 34.0-46.6 [facility] Internal Medicine Work Phone: Comment on above: PATIENT WAS FASTINGP ERFORMED BY: [address] [id number] Information: [id number] Hemoglobin mass conc (Bld) 15.7 g/dL Normal 11.1-15.9 [facility] Work Phone: Comment on above: PATIENT WAS FASTINGP ERFORMED BY: [address] [id number] Information: [id number] Immature granulocytes #/vol (Bld) 0.0 {x10E3/uL} Normal 0.0-0.1 [facility] Work Phone: Comment on above: PATIENT WAS FASTINGP ERFORMED BY: [facility]6370 [facility] [id number] Information: [id number] Immature granulocytes (Bld) [#/Vol] 0.0 10*3/uL Normal 0.0-0.1 [facility]; [facility] Work Phone: Comment on above: PATIENT WAS FASTINGP ERFORMED BY: [place] 2773470 [facility] [id number] Information: [id number] Immature granulocytes/100 WBC (Bld) 0 % Normal [facility] Work Phone: Comment on above: PATIENT WAS FASTINGP ERFORMED BY: [place] 2773470 [facility] [id number] Information: [id number] Lymphocytes #/vol (Bld) 1.8 {x10E3/uL} Normal 0.7-3.1 [facility] Work Phone: Comment on above: PATIENT WAS FASTINGP ERFORMED BY: CHRIS [facility] HospitalGuerrero BatesFopjyd9139 [facility] [id number] Information: [id number] Lymphocytes (Bld) [#/Vol] 1.8 10*3/uL Normal 0.7-3.1 [facility]; [facility] Work Phone: Comment on above: PATIENT WAS FASTINGP ERFORMED BY: CHRIS [facility] Gkggch1244 [facility] [id number] Information: [id number] Lymphocytes Auto #/vol (Bld) 1.8 {x10E3/uL} Normal 0.7-3.1 [facility] Work Phone: Lymphocytes/100 WBC (Bld) 21 % Normal [facility] Work Phone: Comment on above: PATIENT WAS FASTINGP ERFORMED BY: CHRIS [facility] Hospitaltrudi BatesIiucaj3508 [facility] [id number] Information: [id number] Lymphocytes/100 WBC Auto (Bld) 21 % Normal [facility] Work Phone: MCH Auto Entitic mass (RBC) 28.0 pg Normal 26.6-33.0 [facility] Work Phone: MCH Entitic mass (RBC) 28.0 pg Normal 26.6-33.0 [facility] Work Phone: Comment on above: PATIENT WAS FASTINGP ERFORMED BY: CHRIS [place] 7523070 [facility] [id number] Information: [id number] MCHC Auto mass conc (RBC) 33.8 g/dL Normal 31.5-35.7 [facility] Work Phone: MCHC mass conc (RBC) 33.8 g/dL Normal 31.5-35.7 Comp [facility] Internal Medicine Work Phone: Comment on above: PATIENT WAS FASTINGP ERFORMED BY: CHRIS [place] 7523070 [facility] [id number] Information: [id number] MCV Auto Entitic volume (RBC) 83 fL Normal 79-97 [facility] Work Phone: MCV Entitic volume (RBC) 83 fL Normal 79-97 [facility] Work Phone: Comment on above: PATIENT WAS FASTINGP ERFORMED BY: CHRIS [place] 7523070 [facility] [id number] Information: [id number] Monocytes #/vol (Bld) 0.5 {x10E3/uL} Normal 0.1-0.9 [facility] Work Phone: Comment on above: PATIENT WAS FASTINGP ERFORMED BY: [address] [id number] Information: [id number] Monocytes (Bld) [#/Vol] 0.5 10*3/uL Normal 0.1-0.9 [facility]; [facility] Work Phone: Comment on above: PATIENT WAS FASTINGP ERFORMED BY: [place] 2773470 [facility] [id number] Information: [id number] Monocytes Auto #/vol (Bld) 0.5 {x10E3/uL} Normal 0.1-0.9 [facility] Work Phone: Monocytes/100 WBC (Bld) 5 % Normal [facility] Work Phone: Comment on above: PATIENT WAS FASTINGP ERFORMED BY: [place] 2773470 [facility] [id number] Information: [id number] Monocytes/100 WBC Auto (Bld) 5 % Normal [facility] Work Phone: Neutrophils #/vol (Bld) 5.9 {x10E3/uL} Normal 1.4-7.0 [facility] Work Phone: Comment on above: PATIENT WAS FASTINGP ERFORMED BY: [address] [id number] Information: [id number] Neutrophils (Bld) [#/Vol] 5.9 10*3/uL Normal 1.4-7.0 [facility]; [facility] Work Phone: Comment on above: PATIENT WAS FASTINGP ERFORMED BY: CHRIS [facility] Hospitaltrudi BatesAndetg1662 [facility] [id number] Information: [id number] Neutrophils Auto #/vol (Bld) 5.9 {x10E3/uL} Normal 1.4-7.0 [facility] Work Phone: Neutrophils/100 WBC (Bld) 71 % Normal [facility] Work Phone: Comment on above: PATIENT WAS FASTINGP ERFORMED BY: CHRIS [address] [id number] Information: [id number] Neutrophils/100 WBC Auto (Bld) 71 % Normal [facility] Work Phone: Platelets #/vol (Bld) 359 {x10E3/uL} Normal 150-379 [facility] Work Phone: Comment on above: PATIENT WAS FASTINGP ERFORMED BY: CHRIS [facility] Hospitaltrudi BatesFslhow[address] [id number] Information: [id number] Platelets (Bld) [#/Vol] 359 10*3/uL Normal 150-379 [facility]; [facility] Work Phone: Comment on above: PATIENT WAS FASTINGP ERFORMED BY: [place] 2773470 [facility] [id number] Information: [id number] Platelets Auto #/vol (Bld) 359 {x10E3/uL} Normal 150-379 [facility] Work Phone: RBC #/vol (Bld) 5.61 {x10E6/uL} Abnormal 3.77-5.28 Comp rehensive Internal Medicine Work Phone: Comment on above: PATIENT WAS FASTINGP ERFORMED BY: [facility] [id number] Information: [id number] RBC (Bld) [#/Vol] 5.61 10*6/uL Abnormal 3.77-5.[address] [facility] Internal Medicine; [facility] Work Phone: Comment on above: PATIENT WAS FASTINGP ERFORMED BY: [facility] [id number] Information: [id number] RBC Auto #/vol (Bld) 5.61 {x10E6/uL} Abnormal 3.77-5.28 [facility] Work Phone: WBC #/vol (Bld) 8.5 {x10E3/uL} Normal 3.4-10.[address] [facility] Internal Medicine Work Phone: Comment on above: PATIENT WAS FASTINGP ERFORMED BY: [facility] [id number] Information: [id number] WBC (Bld) [#/Vol] 8.5 10*3/uL Normal 3.4-10.8 [facility] Medicine; [facility] Work Phone: Comment on above: PATIENT WAS FASTINGP ERFORMED BY: [facility] [id number] Information: [id number] WBC Auto #/vol (Bld) 8.5 {x10E3/uL} Normal 3.4-10.8 [facility] Work Phone: HgA1C , Office ([id number])Ordere d By: Elysia Barnard on 08-10-2015 Hemoglobin A1c/Hemoglobin.total mass fraction (Bld) 5.2 % Normal 4.6 - 7.1 Comprehensiv e Internal Medicine Work Phone: LIPID PANEL ([id number])Ordered B y: Paper Baler on 08-10-2015 Cholesterol in HDL mass conc 49 mg/dL Normal [facility] Work Phone: Comment on above: According to ATP-III Guidelines, HDL-C >59 mg/dL is considered anegative risk factor for CHD. PATIENT WAS FASTINGP ERFORMED BY: CHRIS Sanchez[address] Refresh.[facility]Good [facility] [id number] Cholesterol in LDL mass conc 96 mg/dL Normal 0-99 [facility] Work Phone: Comment on above: PATIENT WAS FASTINGP ERFORMED BY: CHRIS Sanchez[address] [facility]el[facility]sAd[facility] [id number] Cholesterol in LDL/Cholesterol in HDL mass ratio 2.0 {ratio_units} Normal 0.0-3.2 [facility] Work Phone: Comment on above: LDL/HDL Ratio Men Wo men 1/2 Avg.Risk 1.0 1.5 Avg.Risk 3.6 3.2 2X Avg.Risk 6.2 5.0 3X Avg.Risk 8.0 6.1 PATIENT WAS FASTINGP ERFORMED BY: CHRIS Sanchez[address] [facility]elurosAd[facility] [id number] Cholesterol in VLDL mass conc 32 mg/dL Normal 5-40 [facility] Work Phone: Comment on above: PATIENT WAS FASTINGP ERFORMED BY: CHRIS Sanchez[address] [facility]el[facility]sAd[facility] [id number] Cholesterol mass conc 177 mg/dL Normal 100-199 [facility] prehensive Internal Medicine Work Phone: Comment on above: PATIENT WAS FASTINGP ERFORMED BY: CHRIS Sanchez[address] [facility]Ad[facility] [id number] Triglyceride mass conc 159 mg/dL Abnormal 0-149 [facility] Work Phone: Comment on above: PATIENT WAS FASTINGP ERFORMED BY: CHRIS Bateslin[address] [facility]el[facility]sAd[facility] [id number] METABOLIC PANEL, COMPREHENSI VE ([id number])Ordered By: Paper Baler on 08-10-2015 Albumin mass conc 4.6 g/dL Normal 3.5-5.5 Compreh ensive Internal Medicine Work Phone: Comment on above: PATIENT WAS FASTINGP ERFORMED BY: CB [facility] Tdgsgf4306 [address] RoadDublin [place] [id number] Albumin/Globulin mass ratio 1.4 {ratio} Normal 1.1-2.5 [facility] Internal Medicine Work Phone: Comment on above: PATIENT WAS FASTINGP ERFORMED BY: CHRIS [facility] Kshuzs4587 Gamez RoadDublin [place] [id number] ALP [Catalytic activity/Vol] 68 U/L Normal 39-117 [facility] Internal Medicine; [facility] Internal Medicine Work Phone: Comment on above: PATIENT WAS FASTINGP ERFORMED BY: CHRIS [facility] Qfvgmk5242 [address] RoadDublin [place] [id number] ALP enzyme act/vol 68 [iU]/L Normal 39-117 [facility] Internal Medicine Work Phone: Comment on above: PATIENT WAS FASTINGP ERFORMED BY: [facility] Vxzbnm5775 [address] RoadDublin [place] [id number] ALT [Catalytic activity/Vol] 28 U/L Normal 0-32 [facility] Internal Medicine; [facility] Internal Medicine Work Phone: Comment on above: PATIENT WAS FASTINGP ERFORMED BY: CHRIS [facility] Anrizf7001 [address] RoadDublin [place] [id number] ALT enzyme act/vol 28 [iU]/L Normal 0-32 [facility] Internal Medicine Work Phone: Comment on above: PATIENT WAS FASTINGP ERFORMED BY: [facility] Yypzmh0936 [address] RoadDublin [place] [id number] AST [Catalytic activity/Vol] 19 U/L Normal 0-40 [facility] Internal Medicine; [facility] Internal Medicine Work Phone: Comment on above: PATIENT WAS FASTINGP ERFORMED BY: [facility] Verssv9777 [address] RoadDublin [place] [id number] AST enzyme act/vol 19 [iU]/L Normal 0-40 [facility] Internal Medicine Work Phone: Comment on above: PATIENT WAS FASTINGP ERFORMED BY: CHRIS [facility] Nreiru0625 [address] RoadDublin [place] [id number] Bilirubin mass conc 0.4 mg/dL Normal 0.0-1.2 Compr ehensive Internal Medicine Work Phone: Comment on above: PATIENT WAS FASTINGP ERFORMED BY: CHRIS LabCotrudi BatesQixqtn[address] [facility]in [place] [id number] Calcium mass conc 10.4 mg/dL Abnormal 8.7-10.2 Compreh ensive Internal Medicine Work Phone: Comment on above: PATIENT WAS FASTINGP ERFORMED BY: CB [facility] Yleerv[address] [facility] [id number] Chloride molar conc 100 mmol/L Normal 97-108 Compr ehensive Internal Medicine Work Phone: Comment on above: PATIENT WAS FASTINGP ERFORMED BY: CHRIS LabCotrudi BatesLwzpft[address] [facility] [id number] CO2 molar conc 24 mmol/L Normal 18-29 Comprehens domingo Internal Medicine Work Phone: Comment on above: PATIENT WAS FASTINGP ERFORMED BY: CHRIS [facility] Pmfbzv[address] [facility] [id number] Creatinine mass conc 0.50 mg/dL Abnormal 0.57-1.00 [facility]erens[facility] Work Phone: Comment on above: PATIENT WAS FASTINGP ERFORMED BY: CHRIS [facility] Ukcjzm8904 [facility] [id number] GFR/1.73 sq M predicted among blacks CKD-EPI vol rate/area (S/P/Bld) 123 mL/min/1.73 Normal Comprehensiv e Internal Medicine Work Phone: Comment on above: PATIENT WAS FASTINGP ERFORMED BY: CB [facility] Qnskmv[address] [facility]in [place] [id number] GFR/1.73 sq M predicted among non-blacks CKD-EPI vol rate/area (S/P/Bld) 107 mL/min/1.73 Normal [facility] Work Phone: Comment on above: PATIENT WAS FASTINGP ERFORMED BY: CB [facility] Fzrrij[address] [facility] [id number] Globulin Calculated mass conc (S) 3.4 g/dL Normal 1.5-4.5 [facility] Work Phone: Globulin mass conc (S) 3.4 g/dL Normal 1.5-4.5 [facility] Work Phone: Comment on above: PATIENT WAS FASTINGP ERFORMED BY: CHRIS [facility] Rvypwa0450 [address] RoadDublin [place] [id number] Glucose mass conc 97 mg/dL Normal 65-99 Compreh ensive Internal Medicine Work Phone: Comment on above: PATIENT WAS FASTINGP ERFORMED BY: CHRIS [facility] Zkjkwt4841 [address] RoadDublin [place] [id number] Potassium molar conc 4.1 mmol/L Normal 3.5-5.2 Comp rehensive Internal Medicine Work Phone: Comment on above: PATIENT WAS FASTINGP ERFORMED BY: CHRIS [facility] Pzygyy1251 [address] RoadDublin [place] [id number] Protein mass conc 8.0 g/dL Normal 6.0-8.5 Compreh ensive Internal Medicine Work Phone: Comment on above: PATIENT WAS FASTINGP ERFORMED BY: CHRIS LabCotrudi BatesNqqbtr4973 Gamez RoadDublin [place] [id number] Sodium molar conc 142 mmol/L Normal 134-144 Compreh ensive Internal Medicine Work Phone: Comment on above: PATIENT WAS FASTINGP ERFORMED BY: CHRIS LabCotrudi BatesAgbidk1267 [address] RoadDublin [place] [id number] Urea nitrogen mass conc 11 mg/dL Normal 6-24 [facility] Work Phone: Comment on above: PATIENT WAS FASTINGP ERFORMED BY: CHRIS [facility] Gqbzgd5749 [address] RoadDublin [place] [id number] Urea nitrogen/Creatinine mass ratio 22 mg/mg Normal 9-23 [facility] Work Phone: Comment on above: PATIENT WAS FASTINGP ERFORMED BY: CHRIS [facility] Rjjilh9423 [address] RoadDublin [place] [id number] Microscopic ExaminationOrder ed By: Paper Baler on 08-10-2015 Bacteria LM.HPF #/area (Urine sed) Few Normal [facility] Work Phone: Comment on above: PATIENT WAS FASTINGP ERFORMED BY: CB [facility] Ncmhct9646 [address] RoadDublin [place] [id number] Epithelial cells LM.HPF #/area (Urine sed) 0-10 Normal 0 - 10 [facility] Work Phone: Comment on above: PATIENT WAS FASTINGP ERFORMED BY: CB [facility] Wsfygt5142 [address] RoadDublin [place] [id number] Mucus LM Ql (Urine sed) Present Normal [facility] Work Phone: Mucus Ql (Urine sed) Present Normal Comp rehensive Internal Medicine Work Phone: Comment on above: PATIENT WAS FASTINGP ERFORMED BY: CB [facility] Rsiwah8529 [address] RoadDublin [place] [id number] RBC LM.HPF #/area (Urine sed) None seen Normal 0 - 2 [facility] Work Phone: Comment on above: PATIENT WAS FASTINGP ERFORMED BY: CB [facility] Aficev2103 [address] RoadDublin [place] [id number] WBC LM.HPF #/area (Urine sed) 0-5 Normal 0 - 5 [facility] Work Phone: Comment on above: PATIENT WAS FASTINGP ERFORMED BY: CB [facility] Uixnia8332 [address] RoadDublin [place] [id number] URINALYSIS, W/ MICRO ([id number]) Ordered By: Paper Baler on 08-10-2015 Appearance Nom (U) Clear Normal Compre hensive Internal Medicine Work Phone: Comment on above: PATIENT WAS FASTINGP ERFORMED BY: CB [facility] Uncssp8590 [address] RoadDublin [place] [id number] Bilirubin Ql (U) Negative Normal Comprehe nsive Internal Medicine Work Phone: Comment on above: PATIENT WAS FASTINGP ERFORMED BY: CB [facility] Gcdvrr0163 [address] RoadDublin [place] [id number] Bilirubin Ql (U) Negative Normal Comprehe nsive Internal Medicine; [facility] Work Phone: Comment on above: PATIENT WAS FASTINGP ERFORMED BY: CHRIS LabGuerrero BatesQfzhzs8003 [address] RoadDublin [place] [id number] Color Nom (U) Yellow Normal Comprehensi ve Internal Medicine Work Phone: Comment on above: PATIENT WAS FASTINGP ERFORMED BY: CHRIS Bateslin[address]Dublin [place] [id number] Glucose Ql (U) Negative Normal Comprehens domingo Internal Medicine Work Phone: Comment on above: PATIENT WAS FASTINGP ERFORMED BY: CHRIS LabGuerrero BatesWbmjeg9318 [address] RoadDublin [place] [id number] Glucose Ql (U) Negative Normal Comprehens domingo Internal Medicine; [facility] Work Phone: Comment on above: PATIENT WAS FASTINGP ERFORMED BY: CHRIS Bateslin[address]Dublin [place] [id number] Hemoglobin Ql (U) Negative Normal Compreh ensive Internal Medicine Work Phone: Comment on above: PATIENT WAS FASTINGP ERFORMED BY: CHRIS Bateslin[address]Dublin [place] [id number] Hemoglobin Ql (U) Negative Normal Compreh ensive Internal Medicine; [facility] Work Phone: Comment on above: PATIENT WAS FASTINGP ERFORMED BY: CHRIS Bateslin[address]Dublin [place] [id number] Hemoglobin Test strip Ql (U) Negative Normal [facility] Work Phone: Ketones Ql (U) Negative Normal Comprehens domingo [facility] Medicine Work Phone: Comment on above: PATIENT WAS FASTINGP ERFORMED BY: CHRIS LabCotrudi Qgxgsh8303 [address] RoadDublin [place] [id number] Ketones Ql (U) Negative Normal Comprehens domingo Internal Medicine; [facility] Work Phone: Comment on above: PATIENT WAS FASTINGP ERFORMED BY: CHRIS LabGuerrero BatesKyqwwu8829 [address] RoadDublin [place] [id number] Leukocyte esterase Test strip Ql (U) Negative Normal [facility] Work Phone: Comment on above: PATIENT WAS FASTINGP ERFORMED BY: CHRIS Sanchez[address]Dublin [place] [id number] Leukocyte esterase Test strip Ql (U) Negative Normal [facility]; [facility] Work Phone: Comment on above: PATIENT WAS FASTINGP ERFORMED BY: CHRIS Sanchez[address]Dublin [place] [id number] Microscopic observation LM Nom (Urine sed) MICRON Normal [facility] Work Phone: Comment on above: Microscopic follows if indicated. PATIENT WAS FASTINGP ERFORMED BY: CHRIS Sanchez[address]Dublin [place] [id number] Microscopic observation LM Nom (Urine sed) See below: Normal [facility] Work Phone: Comment on above: Microscopic was doug cated and was performed. PATIENT WAS FASTINGP ERFORMED BY: CHRIS Bateslin[address]Dublin [place] [id number] Nitrite Ql (U) Negative Normal Comprehens domingo Internal Medicine Work Phone: Comment on above: PATIENT WAS FASTINGP ERFORMED BY: CHRIS Sanchez[address]Dublin [place] [id number] Nitrite Ql (U) Negative Normal Comprehens domingo Internal Medicine; [facility] Work Phone: Comment on above: PATIENT WAS FASTINGP ERFORMED BY: CHRIS Sanchez6370 [address]blin [place] [id number] Nitrite Test strip Ql (U) Negative Normal [facility] Work Phone: pH (U) 6.5 [pH] Normal 5.0-7.5 [facility] Work Phone: Comment on above: PATIENT WAS FASTINGP ERFORMED BY: CHRIS Bateslin[address] [place] [id number] pH Test strip (U) 6.5 [pH] Normal 5.0-7.5 Compreh ensive Internal Medicine Work Phone: Protein Ql (U) Negative Normal Comprehens domingo [facility] Medicine Work Phone: Comment on above: PATIENT WAS FASTINGP ERFORMED BY: CHRIS LabCotrudi BatesWkprma3396 [address] RoadDublin [place] [id number] Protein Ql (U) Negative Normal Comprehens domingo Internal Medicine; [facility] Work Phone: Comment on above: PATIENT WAS FASTINGP ERFORMED BY: CHRIS [facility] Dfmdfm3046 [address] RoadDublin [place] [id number] Protein Test strip Ql (U) Negative Normal [facility] Work Phone: Specific gravity Relative Density (U) 1.009 1 Normal 1.005-1.03 0 [facility] Work Phone: Comment on above: PATIENT WAS FASTINGP ERFORMED BY: CHRIS LabCotrudi BatesIqauni2342 [address] RoadDublin [place] [id number] Urobilinogen (U) [Mass/Vol] 0.2 mg/dL Normal 0.2-1.0 [facility]; [facility] Work Phone: Comment on above: PATIENT WAS FASTINGP ERFORMED BY: CHRIS [facility] Oraajm6004 [address] RoadDublin [place] [id number] Urobilinogen Test strip mass conc (U) 0.2 mg/dL Normal 0.2-1.0 Comprehensiv e Internal Medicine Work Phone: Comment on above: PATIENT WAS FASTINGP ERFORMED BY: CHRIS [facility] Hlvkno[address] [facility]in [place] [id number] Blood Glucose , Office ([phone])Ordered By: ARIEL Bradshaw on 05-01-2014 Glucose Glucometer molar conc (BldC) 103 1 Normal [facility] Work Phone: CBC W/AUTO DIFF WBC (90401)O rdered By: Paper Baler on 05-01-2014 Basophils #/vol (Bld) 0.1 {x10E3/uL} Normal 0.0-0.2 [facility] Work Phone: Comment on above: PATIENT WAS FASTINGP ERFORMED BY: CHRIS [facility] Eombby[address] Refresh.ioin [place] [id number] Information: [id number] Basophils (Bld) [#/Vol] 0.1 10*3/uL Normal 0.0-0.2 [facility]; [facility] Work Phone: Comment on above: PATIENT WAS FASTINGP ERFORMED BY: [facility]6[address] [facility] [id number] Information: [id number] Basophils Auto #/vol (Bld) 0.1 {x10E3/uL} Normal 0.0-0.2 [facility] Work Phone: Basophils/100 WBC (Bld) 1 % Normal 0-3 [facility] Work Phone: Comment on above: The percent (%) diff erential reference intervals for normal cell typeswill be removed from patient reports beginning May 11, 2014,consistent with CAP standards. PATIENT WAS FASTINGP ERFORMED BY: [facility]6[address] [facility] [id number] Information: [id number] Basophils/100 WBC Auto (Bld) 1 % Normal 0-3 [facility] Work Phone: Comment on above: The percent (%) diff erential reference intervals for normal cell typeswill be removed from patient reports beginning May 11, 2014,consistent with CAP standards. Eosinophils #/vol (Bld) 0.2 {x10E3/uL} Normal 0.0-0.4 [facility] Work Phone: Comment on above: PATIENT WAS FASTINGP ERFORMED BY: [facility]6[address] [facility] [id number] Information: [id number] Eosinophils (Bld) [#/Vol] 0.2 10*3/uL Normal 0.0-0.4 [facility]; [facility] Work Phone: Comment on above: PATIENT WAS FASTINGP ERFORMED BY: [facility]6[address] [facility] [id number] Information: [id number] Eosinophils Auto #/vol (Bld) 0.2 {x10E3/uL} Normal 0.0-0.4 [facility] Work Phone: Eosinophils/100 WBC (Bld) 3 % Normal 0-5 [facility] Work Phone: Comment on above: The percent (%) diff erential reference intervals for normal cell typeswill be removed from patient reports beginning May 11, 2014,consistent with CAP standards. PATIENT WAS FASTINGP ERFORMED BY: [place] [employer]6370 [facility]paceGood [facility] Hospital [id number] Information: [id number] Eosinophils/100 WBC Auto (Bld) 3 % Normal [...] on above: PATIENT WAS FASTINGP ERFORMED BY: [place] [employer] AelurosAdventHealth [facility] [id number] Information: [id number] Hematocrit Auto Volume Fraction (Bld) 42.4 % Normal 34.0-46.6 [facility] Internal Medicine Work Phone: Hematocrit Volume Fraction (Bld) 42.4 % Normal 34.0-46.6 [facility] Internal Medicine Work Phone: Comment on above: PATIENT WAS FASTINGP ERFORMED BY: [employer] Teiczo[address] AelurosAdventHealth [facility]ville [id number] Information: [id number] Hemoglobin mass conc (Bld) 14.5 g/dL Normal 11.1-15.9 [facility] Work Phone: Comment on above: PATIENT WAS FASTINGP ERFORMED BY: [facility]6[address] [facility] [id number] Information: [id number] Immature granulocytes #/vol (Bld) 0.0 {x10E3/uL} Normal 0.0-0.1 [facility] Work Phone: Comment on above: PATIENT WAS FASTINGP ERFORMED BY: [facility]6[address] [facility] [id number] Information: [id number] Immature granulocytes (Bld) [#/Vol] 0.0 10*3/uL Normal 0.0-0.1 [facility]; [facility] Work Phone: Comment on above: PATIENT WAS FASTINGP ERFORMED BY: [place] 27734[address] [facility] [id number] Information: [id number] Immature granulocytes/100 WBC (Bld) 0 % Normal 0-2 [facility] Work Phone: Comment on above: The percent (%) diff erential reference intervals for normal cell typeswill be removed from patient reports beginning May 11, 2014,consistent with CAP standards. PATIENT WAS FASTINGP ERFORMED BY: [facility]6[address] [facility] [id number] Information: [id number] Lymphocytes #/vol (Bld) 2.1 {x10E3/uL} Normal 0.7-3.1 [facility] Work Phone: Comment on above: PATIENT WAS FASTINGP ERFORMED BY: [facility]6[address] [facility] [id number] Information: [id number] Lymphocytes (Bld) [#/Vol] 2.1 10*3/uL Normal 0.7-3.1 [facility]; [facility] Work Phone: Comment on above: PATIENT WAS FASTINGP ERFORMED BY: [facility] [id number] Information: [id number] Lymphocytes Auto #/vol (Bld) 2.1 {x10E3/uL} Normal 0.7-3.1 [facility] Work Phone: Lymphocytes/100 WBC (Bld) 27 % Normal 14-46 [facility] Work Phone: Comment on above: The percent (%) diff erential reference intervals for normal cell typeswill be removed from patient reports beginning May 11, 2014,consistent with CAP standards. PATIENT WAS FASTINGP ERFORMED BY: [employer]70 WidespaceGood [facility] Hospital [id number] Information: [id number] Lymphocytes/100 WBC Auto (Bld) 27 % Normal [facility] Work Phone: [...] on above: PATIENT WAS FASTINGP ERFORMED BY: Renrenmoney6370 [facility] [id number] Information: [id number] MCHC Auto mass conc (RBC) 34.2 g/dL Normal 31.5-35.7 [facility] Work Phone: MCHC mass conc (RBC) 34.2 g/dL Normal 31.5-35.7 [facility] Internal [facility] Work Phone: Comment on above: PATIENT WAS FASTINGP ERFORMED BY: Renrenmoney[address] AelurosAdventHealth [facility]ville [id number] Information: [id number] MCV Auto Entitic volume (RBC) 82 fL Normal 79-97 [facility] Work Phone: MCV Entitic volume (RBC) 82 fL Normal 79-97 [facility] Work Phone: Comment on above: PATIENT WAS FASTINGP ERFORMED BY: [facility] [id number] Information: [id number] Monocytes #/vol (Bld) 0.5 {x10E3/uL} Normal 0.1-0.9 [facility] Work Phone: Comment on above: PATIENT WAS FASTINGP ERFORMED BY: [facility]6[address] [facility] [id number] Information: [id number] Monocytes (Bld) [#/Vol] 0.5 10*3/uL Normal 0.1-0.9 [facility]; [facility] Work Phone: Comment on above: PATIENT WAS FASTINGP ERFORMED BY: [facility] [id number] Information: [id number] Monocytes Auto #/vol (Bld) 0.5 {x10E3/uL} Normal 0.1-0.9 [facility] Work Phone: Monocytes/100 WBC (Bld) 7 % Normal 12-06 [facility] Work Phone: Comment on above: The percent (%) diff erential reference intervals for normal cell typeswill be removed from patient reports beginning May 11, 2014,consistent with CAP standards. PATIENT WAS FASTINGP ERFORMED BY: [facility]6[address] [facility] [id number] Information: [id number] Monocytes/100 WBC Auto (Bld) 7 % Normal - [facility] Work Phone: Comment on above: The percent (%) diff erential reference intervals for normal cell typeswill be removed from patient reports beginning May 11, 2014,consistent with CAP standards. Neutrophils #/vol (Bld) 4.7 {x10E3/uL} Normal 1.4-7.0 [facility] Work Phone: Comment on above: PATIENT WAS FASTINGP ERFORMED BY: [facility] Ptmbgl8544 [facility] [id number] Information: [id number] Neutrophils (Bld) [#/Vol] 4.7 10*3/uL Normal 1.4-7.0 [facility]; [facility] Work Phone: Comment on above: PATIENT WAS FASTINGP ERFORMED BY: [facility] Pavilionlin6370 [facility] [id number] Information: [id number] Neutrophils Auto #/vol (Bld) 4.7 {x10E3/uL} Normal 1.4-7.0 [facility] Work Phone: Neutrophils/100 WBC (Bld) 62 % Normal 40-74 [facility] Work Phone: Comment on above: The percent (%) diff erential reference intervals for normal cell typeswill be removed from patient reports beginning May 11, 2014,consistent with CAP standards. PATIENT WAS FASTINGP ERFORMED BY: [facility] [id number] Information: [id number] Neutrophils/100 WBC Auto (Bld) 62 % Normal 40-74 [facility] Work Phone: Comment on above: The percent (%) diff erential reference intervals for normal cell typeswill be removed from patient reports beginning May 11, 2014,consistent with CAP standards. Platelets #/vol (Bld) 301 {x10E3/uL} Normal 150-379 [facility] Work Phone: Comment on above: PATIENT WAS FASTINGP ERFORMED BY: [facility] [id number] Information: [id number] Platelets (Bld) [#/Vol] 301 10*3/uL Normal 150-379 [facility]; [facility] Work Phone: Comment on above: PATIENT WAS FASTINGP ERFORMED BY: [facility] Sddjke8224 [facility] [id number] Information: [id number] Platelets Auto #/vol (Bld) 301 {x10E3/uL} Normal 150-379 [facility] Work Phone: RBC #/vol (Bld) 5.15 {x10E6/uL} Normal 3.77-5.28 [facility] Internal Medicine Work Phone: Comment on above: PATIENT WAS FASTINGP ERFORMED BY: [place] [id number] [facility] [id number] Information: [id number] RBC (Bld) [#/Vol] 5.15 10*6/uL Normal 3.77-5.[address] [facility] Internal Medicine; [facility] Work Phone: Comment on above: PATIENT WAS FASTINGP ERFORMED BY: [facility]6370 [facility] [id number] Information: [id number] RBC Auto #/vol (Bld) 5.15 {x10E6/uL} Normal 3.77-5.28 [facility] Internal Medicine Work Phone: WBC #/vol (Bld) 7.5 {x10E3/uL} Normal 3.4-10.[address] [facility] Internal Medicine Work Phone: Comment on above: PATIENT WAS FASTINGP ERFORMED BY: [facility]6370 [facility] [id number] Information: [id number] WBC (Bld) [#/Vol] 7.5 10*3/uL Normal 3.4-10.8 [facility]; [facility] Work Phone: Comment on above: PATIENT WAS FASTINGP ERFORMED BY: [facility]6370 [facility] [id number] Information: [id number] WBC Auto #/vol (Bld) 7.5 {x10E3/uL} Normal 3.4-10.8 [facility] Work Phone: HgA1C , Office ([phone])Ordere d By: ARIEL Bradshaw on 05-01-2014 Hemoglobin A1c/Hemoglobin.total mass fraction (Bld) 5.5 % Normal 4.6 - 7.1 Comprehensiv e Internal Medicine Work Phone: LIPID PANEL ([id number])Ordered B y: Paper Baler on 05-01-2014 Cholesterol in HDL mass conc 51 mg/dL Normal [facility] Work Phone: Comment on above: According to ATP-III Guidelines, HDL-C >59 mg/dL is considered anegative risk factor for CHD. PATIENT WAS FASTINGP ERFORMED BY: CB [facility] Pmlshq7142 [address] RoadDublin [place] [id number] Cholesterol in LDL mass conc 123 mg/dL Abnormal 0-99 [facility] Work Phone: Comment on above: PATIENT WAS FASTINGP ERFORMED BY: CB [facility] Ruapjk2658 [address] RoadDublin [place] [id number] Cholesterol in LDL/Cholesterol in HDL mass ratio 2.4 {ratio_units} Normal 0.0-3.2 [facility] Work Phone: Comment on above: PATIENT WAS FASTINGP ERFORMED BY: CB [facility] Augkyd1374 [address]z RoadDublin [place] [id number] Cholesterol in VLDL mass conc 40 mg/dL Normal 5-40 [facility] Work Phone: Comment on above: PATIENT WAS FASTINGP ERFORMED BY: CB [facility] Uwfcyj3406 [address] RoadDublin [place] [id number] Cholesterol mass conc 214 mg/dL Abnormal 100-199 [facility] prehensive Internal Medicine Work Phone: Comment on above: PATIENT WAS FASTINGP ERFORMED BY: CB [facility] Xxtheh6594 [address] RoadDublin [place] [id number] Triglyceride mass conc 198 mg/dL Abnormal 0-149 [facility] Work Phone: Comment on above: PATIENT WAS FASTINGP ERFORMED BY: CB [facility] Esusks6688 [address] RoadDublin [place] [id number] METABOLIC PANEL, COMPREHENSI VE ([id number])Ordered By: Paper Baler on 05-01-2014 Albumin mass conc 4.3 g/dL Normal 3.5-5.5 [facility] Internal Medicine Work Phone: Comment on above: PATIENT WAS FASTINGP ERFORMED BY: CHRIS [facility] Iljxeu4249 [address]z RoadDublin [place] [id number] Albumin/Globulin mass ratio 1.5 {ratio} Normal 1.1-2.5 [facility] Work Phone: Comment on above: PATIENT WAS FASTINGP ERFORMED BY: CB [facility] Ttaawh5635 [address] RoadDublin [place] [id number] ALP [Catalytic activity/Vol] 77 U/L Normal 39-117 [facility]; [facility] Internal Medicine Work Phone: Comment on above: PATIENT WAS FASTINGP ERFORMED BY: [facility] Ylbyvf6699 [address] RoadDublin [place] [id number] ALP enzyme act/vol 77 [iU]/L Normal 39-117 [facility] Internal Medicine Work Phone: Comment on above: PATIENT WAS FASTINGP ERFORMED BY: [facility] Ohdtpt3532 [address] RoadDublin [place] [id number] ALT [Catalytic activity/Vol] 27 U/L Normal 0-32 [facility]; [facility] Internal Medicine Work Phone: Comment on above: PATIENT WAS FASTINGP ERFORMED BY: [facility] Zczayy0779 [address] RoadDublin [place] [id number] ALT enzyme act/vol 27 [iU]/L Normal 0-32 [facility] Internal Medicine Work Phone: Comment on above: PATIENT WAS FASTINGP ERFORMED BY: [facility] Zzktur0230 [address] RoadDublin [place] [id number] AST [Catalytic activity/Vol] 16 U/L Normal 0-40 [facility]; [facility] Internal Medicine Work Phone: Comment on above: PATIENT WAS FASTINGP ERFORMED BY: CB [facility] Ryfwwh3740 [address] RoadDublin [place] [id number] AST enzyme act/vol 16 [iU]/L Normal 0-40 [facility] Internal Medicine Work Phone: Comment on above: PATIENT WAS FASTINGP ERFORMED BY: CHRIS [facility] Ytktfv1935 [address] RoadDublin [place] [id number] Bilirubin mass conc 0.4 mg/dL Normal 0.0-1.2 Compr ensive Internal Medicine Work Phone: Comment on above: PATIENT WAS FASTINGP ERFORMED BY: CHRIS [facility] Tkryrt9758 [address] Roadblin [place] [id number] Calcium mass conc 9.9 mg/dL Normal 8.7-10.2 Compreh ensive Internal Medicine Work Phone: Comment on above: PATIENT WAS FASTINGP ERFORMED BY: CHRIS [facility] Qtehdl[address] [facility]in [place] [id number] Chloride molar conc 98 mmol/L Normal 97-108 Compr [facility] Internal Medicine Work Phone: Comment on above: PATIENT WAS FASTINGP ERFORMED BY: CHRIS [facility] Dtqoig[address] [facility]in [place] [id number] CO2 molar conc 26 mmol/L Normal 18-29 Comprehens domingo Internal Medicine Work Phone: Comment on above: PATIENT WAS FASTINGP ERFORMED BY: CHRIS [facility] Melxao[address] [facility]in [place] [id number] Creatinine mass conc 0.43 mg/dL Abnormal 0.57-1.00 Comp [facility] Internal Medicine Work Phone: Comment on above: PATIENT WAS FASTINGP ERFORMED BY: CHRIS [facility] Qdwwaz[address] [facility] [id number] GFR/1.73 sq M predicted among blacks CKD-EPI vol rate/area (S/P/Bld) 131 mL/min/1.73 Normal Comprehensiv e Internal Medicine Work Phone: Comment on above: PATIENT WAS FASTINGP ERFORMED BY: CB [facility] Eqshck4835 [address] Roadblin [place] [id number] GFR/1.73 sq M predicted among non-blacks CKD-EPI vol rate/area (S/P/Bld) 113 mL/min/1.73 Normal [facility] Work Phone: Comment on above: PATIENT WAS FASTINGP ERFORMED BY: CHRIS [facility] Shlxqz0181 [address] RoadDublin [place] [id number] Globulin Calculated mass conc (S) 2.8 g/dL Normal 1.5-4.5 [facility] Work Phone: Globulin mass conc (S) 2.8 g/dL Normal 1.5-4.5 [facility] Work Phone: Comment on above: PATIENT WAS FASTINGP ERFORMED BY: CB [facility] Mnkngz2329 [address] RoadDublin [place] [id number] Glucose mass conc 88 mg/dL Normal 65-99 Compreh ensive Internal Medicine Work Phone: Comment on above: PATIENT WAS FASTINGP ERFORMED BY: CHRIS [facility] Sczqxi4027 [address] RoadDublin [place] [id number] Potassium molar conc 4.1 mmol/L Normal 3.5-5.2 Comp rehensive Internal Medicine Work Phone: Comment on above: PATIENT WAS FASTINGP ERFORMED BY: CHRIS [facility] Tfzgap2799 [address] RoadDublin [place] [id number] Protein mass conc 7.1 g/dL Normal 6.0-8.5 Compreh ensive Internal Medicine Work Phone: Comment on above: PATIENT WAS FASTINGP ERFORMED BY: CHRIS [facility] Oztqhy5903 [address] RoadDublin [place] [id number] Sodium molar conc 140 mmol/L Normal 134-144 Compreh ensive Internal Medicine Work Phone: Comment on above: PATIENT WAS FASTINGP ERFORMED BY: CHRIS [facility] Ncqnfl6578 [address] RoadDublin [place] [id number] Urea nitrogen mass conc 12 mg/dL Normal 6-24 [facility] Work Phone: Comment on above: PATIENT WAS FASTINGP ERFORMED BY: CB [facility] Rpjyqv3666 [address] RoadDublin [place] [id number] Urea nitrogen/Creatinine mass ratio 28 mg/mg Abnormal 9-23 [facility] Work Phone: Comment on above: PATIENT WAS FASTINGP ERFORMED BY: CHRIS [facility] Itungh9713 [address] RoadDublin [place] [id number] Microscopic ExaminationOrder ed By: Paper Baler on 05-01-2014 Bacteria LM.HPF #/area (Urine sed) Few Normal [facility] Work Phone: Comment on above: PATIENT WAS FASTINGP ERFORMED BY: CHRIS [facility] Xvoxrr6452 [address] Roadblin [place] [id number] Epithelial cells LM.HPF #/area (Urine sed) 0-10 Normal 0 - 10 [facility] Work Phone: Comment on above: PATIENT WAS FASTINGP ERFORMED BY: CHRIS [facility] Fxsiax4246 [address] Roadblin [place] [id number] Mucus LM Ql (Urine sed) Present Normal [facility] Work Phone: Mucus Ql (Urine sed) Present Normal Comp rehensive Internal Medicine Work Phone: Comment on above: PATIENT WAS FASTINGP ERFORMED BY: CHRIS [facility] Glrsjx8222 [address] Roadblin [place] [id number] RBC LM.HPF #/area (Urine sed) None seen Normal 0 - 2 [facility] Work Phone: Comment on above: PATIENT WAS FASTINGP ERFORMED BY: CHRIS [facility] Xtviny[address] [facility] Centerblin [place] [id number] WBC LM.HPF #/area (Urine sed) 0-5 Normal 0 - 5 [facility] Work Phone: Comment on above: PATIENT WAS FASTINGP ERFORMED BY: CHRIS [facility] Mmizdb[address] [facility]in [place] [id number] URINALYSIS, W/ MICRO ([id number]) Ordered By: Paper Baler on 05-01-2014 Appearance Nom (U) Clear Normal Compre hensive Internal Medicine Work Phone: Comment on above: PATIENT WAS FASTINGP ERFORMED BY: CHRIS [facility] Kfraoy2382 [address] RoadDublin [place] [id number] Bilirubin Ql (U) Negative Normal Comprehe nsive Internal Medicine Work Phone: Comment on above: PATIENT WAS FASTINGP ERFORMED BY: [facility] Ynzecc2947 [address] RoadDublin [place] [id number] Bilirubin Ql (U) Negative Normal Comprehe nsive Internal Medicine; [facility] Work Phone: Comment on above: PATIENT WAS FASTINGP ERFORMED BY: [facility] Bnzgze6005 [address] RoadDublin [place] [id number] Color Nom (U) Yellow Normal Comprehensi ve Internal Medicine Work Phone: Comment on above: PATIENT WAS FASTINGP ERFORMED BY: [facility] Mpxgqf1852 [address] RoadDublin [place] [id number] Glucose Ql (U) Negative Normal Comprehens domingo Internal Medicine Work Phone: Comment on above: PATIENT WAS FASTINGP ERFORMED BY: [facility] Nprkor7299 Gaemz RoadDublin [place] [id number] Glucose Ql (U) Negative Normal Comprehens domingo Internal Medicine; [facility] Work Phone: Comment on above: PATIENT WAS FASTINGP ERFORMED BY: [facility] Jhdslh2719 [address] RoadDublin [place] [id number] Hemoglobin Ql (U) Negative Normal Compreh ensive Internal Medicine Work Phone: Comment on above: PATIENT WAS FASTINGP ERFORMED BY: [facility] Msnbjz5330 [address] RoadDublin [place] [id number] Hemoglobin Ql (U) Negative Normal Compreh ensive Internal Medicine; [facility] Work Phone: Comment on above: PATIENT WAS FASTINGP ERFORMED BY: [facility] Opqvru2823 [address] RoadDublin [place] [id number] Hemoglobin Test strip Ql (U) Negative Normal [facility] Work Phone: Ketones Ql (U) Negative Normal Comprehens domingo Internal Medicine Work Phone: Comment on above: PATIENT WAS FASTINGP ERFORMED BY: [facility] Babrgj3968 [address] RoadDublin [place] [id number] Ketones Ql (U) Negative Normal Comprehens domingo [facility] Medicine; [facility] Work Phone: Comment on above: PATIENT WAS FASTINGP ERFORMED BY: CHRIS [facility] Mchdaq6601 [address] RoadDublin [place] [id number] Leukocyte esterase Test strip Ql (U) Negative Normal [facility] Work Phone: Comment on above: PATIENT WAS FASTINGP ERFORMED BY: CHRIS [facility] Xuyweq8086 [address] RoadDublin [place] [id number] Leukocyte esterase Test strip Ql (U) Negative Normal [facility]; [facility] Work Phone: Comment on above: PATIENT WAS FASTINGP ERFORMED BY: CHRIS [facility] Gfubzg7296 [address] RoadDublin [place] [id number] Microscopic observation LM Nom (Urine sed) See below: Normal [facility] Work Phone: Comment on above: Microscopic was doug cated and was performed. PATIENT WAS FASTINGP ERFORMED BY: CHRIS [facility] Vkestz1905 [address]z RoadDublin [place] [id number] Microscopic observation LM Nom (Urine sed) MICRON Normal [facility] Work Phone: Comment on above: Microscopic follows if indicated. PATIENT WAS FASTINGP ERFORMED BY: CHRIS [facility] Ktcwcg6224 [address] RoadDublin [place] [id number] Nitrite Ql (U) Negative Normal Comprehens domingo Internal Medicine Work Phone: Comment on above: PATIENT WAS FASTINGP ERFORMED BY: CHRIS [facility] Zofvdo6607 [address] RoadDublin [place] [id number] Nitrite Ql (U) Negative Normal Comprehens domingo Internal Medicine; [facility] Work Phone: Comment on above: PATIENT WAS FASTINGP ERFORMED BY: CHRIS [facility] Jzjchp0239 [address] RoadDublin [place] [id number] Nitrite Test strip Ql (U) Negative Normal [facility] Work Phone: pH (U) 7.0 [pH] Normal 5.0-7.5 [facility] Work Phone: Comment on above: PATIENT WAS FASTINGP ERFORMED BY: CHRIS [facility] Znkvxe4312 [address] RoadDublin [place] [id number] pH Test strip (U) 7.0 [pH] Normal 5.0-7.5 Compreh ensive Internal Medicine Work Phone: Protein Ql (U) Negative Normal Comprehens domingo Internal Medicine Work Phone: Comment on above: PATIENT WAS FASTINGP ERFORMED BY: CB [facility] Jkhedz2886 [address] RoadDublin [place] [id number] Protein Ql (U) Negative Normal Comprehens domingo Internal Medicine; [facility] Work Phone: Comment on above: PATIENT WAS FASTINGP ERFORMED BY: [facility] Wzfpjl9604 [address] RoadDublin [place] [id number] Protein Test strip Ql (U) Negative Normal [facility] Work Phone: Specific gravity Relative Density (U) 1.014 1 Normal 1.005-1.03 0 [facility] Work Phone: Comment on above: PATIENT WAS FASTINGP ERFORMED BY: [facility] Jxezjr4141 [address]z RoadDublin [place] [id number] Urobilinogen (U) [Mass/Vol] 0.2 mg/dL Normal 0.0-1.9 [facility]; [facility] Work Phone: Comment on above: PATIENT WAS FASTINGP ERFORMED BY: [facility] Cgzbxa[address] AelurosDublin [place] [id number] Urobilinogen Test strip mass conc (U) 0.2 mg/dL Normal 0.0-1.9 Comprehensiv e Internal Medicine Work Phone: Comment on above: PATIENT WAS FASTINGP ERFORMED BY: CB [facility] Nyefkc[address] AelurosDublin [place] [id number] Blood Glucose , Office ([phone])Ordered By: ARIEL Bradshaw on 01-22-2014 Glucose Glucometer molar conc (BldC) 100 1 Normal [facility] Work Phone: Comment on above: non fasting HgA1C , Office ([phone])Ordere d By: Elysia Barnard on 01-22-2014 Hemoglobin A1c/Hemoglobin.total mass fraction (Bld) 5.3 % Normal 4.6 - 7.1 Comprehensiv e Internal Medicine Work Phone: Blood Glucose , Office ([phone])Ordered By: Juan Carlos Barron on 02-07-2013 Glucose Glucometer molar conc (BldC) 87 1 Normal [facility] Work Phone: CBC WITH MANUAL DIFF ([id number]) Ordered By: Paper Baler on 02-07-2013 Basophils #/vol (Bld) 0.0 {x10E3/uL} Normal 0.0-0.2 [facility] Work Phone: Comment on above: PATIENT WAS FASTINGP ERFORMED BY: Undo SoftwareUNM Sandoval Regional Medical CenterZnxkdj0732 [facility] [id number] Information: [id number] Basophils (Bld) [#/Vol] 0.0 10*3/uL Normal 0.0-0.2 [facility]; [facility] Work Phone: Comment on above: PATIENT WAS FASTINGP ERFORMED BY: Undo SoftwareNicholas [place] [id number] [facility] [id number] Information: [id number] Basophils Auto #/vol (Bld) 0.0 {x10E3/uL} Normal 0.0-0.2 [facility] Work Phone: Basophils/100 WBC (Bld) 1 % Normal 0-3 [facility] Work Phone: Comment on above: PATIENT WAS FASTINGP ERFORMED BY: LabMongoSluiceNicholas [place] [id number] [facility] [id number] Information: [id number] Basophils/100 WBC Auto (Bld) 1 % Normal 0-3 [facility] Work Phone: Eosinophils #/vol (Bld) 0.2 {x10E3/uL} Normal 0.0-0.4 [facility] Work Phone: Comment on above: PATIENT WAS FASTINGP ERFORMED BY: Magruder HospitalMongoSluiceNicholas [place] [id number] [facility] [id number] Information: [id number] Eosinophils (Bld) [#/Vol] 0.2 10*3/uL Normal 0.0-0.4 [facility]; [facility] Work Phone: Comment on above: PATIENT WAS FASTINGP ERFORMED BY: ID QuantiqueReginald [place] [id number] [facility] [id number] Information: [id number] Eosinophils Auto #/vol (Bld) 0.2 {x10E3/uL} Normal 0.0-0.4 [facility] Work Phone: Eosinophils/100 WBC (Bld) 2 % Normal 0-7 [facility] Work Phone: Comment on above: PATIENT WAS FASTINGP ERFORMED BY: Undo SoftwareNicholas [place] [id number] [facility] [id number] Information: [id number] Eosinophils/100 WBC Auto (Bld) 2 % Normal 0-7 [facility] Work Phone: Erythrocyte distribution width Auto Ratio (RBC) 15.4 % Normal 12.3-15.4 [facility] Work Phone: Erythrocyte distribution width Ratio (RBC) 15.4 % Normal 12.3-15.4 [facility] Work Phone: Comment on above: PATIENT WAS FASTINGP ERFORMED BY: [place] [id number] [facility] [id number] Information: [id number] Hematocrit Auto Volume Fraction (Bld) 44.1 % Normal 34.0-46.6 [facility] Internal Medicine Work Phone: Hematocrit Volume Fraction (Bld) 44.1 % Normal 34.0-46.6 [facility] Work Phone: Comment on above: PATIENT WAS FASTINGP ERFORMED BY: [facility]6370 [facility] [id number] Information: [id number] Hemoglobin mass conc (Bld) 14.9 g/dL Normal 11.1-15.9 [facility] Work Phone: Comment on above: PATIENT WAS FASTINGP ERFORMED BY: [place] [id number] [facility] [id number] Information: [id number] Immature granulocytes #/vol (Bld) 0.0 {x10E3/uL} Normal 0.0-0.1 [facility] Work Phone: Comment on above: PATIENT WAS FASTINGP ERFORMED BY: [address] [id number] Information: [id number] Immature granulocytes (Bld) [#/Vol] 0.0 10*3/uL Normal 0.0-0.1 [facility]; [facility] Work Phone: Comment on above: PATIENT WAS FASTINGP ERFORMED BY: [address] [id number] Information: [id number] Immature granulocytes/100 WBC (Bld) 0 % Normal 0-2 [facility] Work Phone: Comment on above: PATIENT WAS FASTINGP ERFORMED BY: [address] [id number] Information: [id number] Lymphocytes #/vol (Bld) 2.0 {x10E3/uL} Normal 0.7-4.5 [facility] Work Phone: Comment on above: PATIENT WAS FASTINGP ERFORMED BY: [address] [id number] Information: [id number] Lymphocytes (Bld) [#/Vol] 2.0 10*3/uL Normal 0.7-4.5 [facility]; [facility] Work Phone: Comment on above: PATIENT WAS FASTINGP ERFORMED BY: [address] [id number] Information: [id number] Lymphocytes Auto #/vol (Bld) 2.0 {x10E3/uL} Normal 0.7-4.5 [facility] Work Phone: Lymphocytes/100 WBC (Bld) 28 % Normal 14 [facility] Work Phone: Comment on above: PATIENT WAS FASTINGP ERFORMED BY: CHRIS [place] [id number] [facility] [id number] Information: [id number] Lymphocytes/100 WBC Auto (Bld) 28 % Normal 14- [facility] Work Phone: MCH Auto Entitic mass (RBC) 28.2 pg Normal 26.6-33.0 [facility] Work Phone: MCH Entitic mass (RBC) 28.2 pg Normal 26.6-33.0 [facility] Work Phone: Comment on above: PATIENT WAS FASTINGP ERFORMED BY: CHRIS [address] [id number] Information: [id number] MCHC Auto mass conc (RBC) 33.8 g/dL Normal 31.5-35.7 [facility] Work Phone: MCHC mass conc (RBC) 33.8 g/dL Normal 31.5-35.7 [facility] Internal Medicine Work Phone: Comment on above: PATIENT WAS FASTINGP ERFORMED BY: CHRIS UgarteVttrudi Mvsoxv3183 [facility] [id number] Information: [id number] MCV Auto Entitic volume (RBC) 83 fL Normal 79-97 [facility] Work Phone: MCV Entitic volume (RBC) 83 fL Normal 79-97 [facility] Work Phone: Comment on above: PATIENT WAS FASTINGP ERFORMED BY: CHRIS [place] 7523070 [facility] [id number] Information: [id number] Monocytes #/vol (Bld) 0.6 {x10E3/uL} Normal 0.1-1.0 [facility] Work Phone: Comment on above: PATIENT WAS FASTINGP ERFORMED BY: CHRIS Sanchez6370 [facility] [id number] Information: [id number] Monocytes (Bld) [#/Vol] 0.6 10*3/uL Normal 0.1-1.0 [facility]; [facility] Work Phone: Comment on above: PATIENT WAS FASTINGP ERFORMED BY: CHRIS Caceres Egnowv5631 [facility] [id number] Information: [id number] Monocytes Auto #/vol (Bld) 0.6 {x10E3/uL} Normal 0.1-1.0 [facility] Work Phone: Monocytes/100 WBC (Bld) 9 % Normal - [facility] Work Phone: Comment on above: PATIENT WAS FASTINGP ERFORMED BY: ToritoReginald [place] 0533770 [facility] [id number] Information: [id number] Monocytes/100 WBC Auto (Bld) 9 % Normal - [facility] Work Phone: Neutrophils #/vol (Bld) 4.2 {x10E3/uL} Normal 1.8-7.8 [facility] Work Phone: Comment on above: PATIENT WAS FASTINGP ERFORMED BY: [place] [id number] [facility] [id number] Information: [id number] Neutrophils (Bld) [#/Vol] 4.2 10*3/uL Normal 1.8-7.8 [facility]; [facility] Work Phone: Comment on above: PATIENT WAS FASTINGP ERFORMED BY: [place] 2773470 [facility] [id number] Information: [id number] Neutrophils Auto #/vol (Bld) 4.2 {x10E3/uL} Normal 1.8-7.8 [facility] Work Phone: Neutrophils/100 WBC (Bld) 60 % Normal 40-74 [facility] Work Phone: Comment on above: PATIENT WAS FASTINGP ERFORMED BY: CHRIS Alireza Sanchez6370 [facility] [id number] Information: [id number] Neutrophils/100 WBC Auto (Bld) 60 % Normal 40-74 [facility] Work Phone: Platelets #/vol (Bld) 302 {x10E3/uL} Normal 140-415 [facility] Work Phone: Comment on above: PATIENT WAS FASTINGP ERFORMED BY: [place] [id number] [facility] [id number] Information: [id number] Platelets (Bld) [#/Vol] 302 10*3/uL Normal 140-415 [facility]; [facility] Work Phone: Comment on above: PATIENT WAS FASTINGP ERFORMED BY: CHRIS [place] [id number] [facility] [id number] Information: [id number] Platelets Auto #/vol (Bld) 302 {x10E3/uL} Normal 140-415 [facility] Work Phone: RBC #/vol (Bld) 5.29 {x10E6/uL} Abnormal 3.77-5.28 [facility] Internal Medicine Work Phone: Comment on above: PATIENT WAS FASTINGP ERFORMED BY: [place] [id number] [facility] [id number] Information: [id number] RBC (Bld) [#/Vol] 5.29 10*6/uL Abnormal 3.77-5.[address] [facility] Internal Medicine; [facility] Work Phone: Comment on above: PATIENT WAS FASTINGP ERFORMED BY: [place] [id number] [facility] [id number] Information: [id number] RBC Auto #/vol (Bld) 5.29 {x10E6/uL} Abnormal 3.77-5.28 [facility] Work Phone: WBC #/vol (Bld) 7.0 {x10E3/uL} Normal 4.0-10.5 Compr [facility] Internal Medicine Work Phone: Comment on above: PATIENT WAS FASTINGP ERFORMED BY: CHRIS LabCo Uwssji5305 [facility] [id number] Information: [id number] WBC (Bld) [#/Vol] 7.0 10*3/uL Normal 4.0-10.5 [facility] Internal Medicine; [facility] Work Phone: Comment on above: PATIENT WAS FASTINGP ERFORMED BY: CHRIS Bateslin6370 [facility] [id number] Information: [id number] WBC Auto #/vol (Bld) 7.0 {x10E3/uL} Normal 4.0-10.5 [facility] Work Phone: LIPID PANEL ([id number])Ordered B y: Paper Baler on 02-07-2013 Cholesterol in HDL mass conc 46 mg/dL Normal [facility] Medicine Work Phone: Comment on above: According to ATP-III Guidelines, HDL-C >59 mg/dL is considered anegative risk factor for CHD. PATIENT WAS FASTINGP ERFORMED BY: CHRIS LabMongoSluice Gpkdrq1987 [facility] [id number] Cholesterol in LDL mass conc 160 mg/dL Abnormal 0-99 [facility] Work Phone: Comment on above: PATIENT WAS FASTINGP ERFORMED BY: CHRIS LabMongoSluice Aolvcn4152 [facility]Ad[facility] [id number] Cholesterol in LDL/Cholesterol in HDL mass ratio 3.5 {ratio_units} Abnormal 0.0-3.2 [facility] Work Phone: Comment on above: PATIENT WAS FASTINGP ERFORMED BY: [employer] Fjeuku6734 [facility] [id number] Cholesterol in VLDL mass conc 39 mg/dL Normal 5-40 [facility] Work Phone: Comment on above: PATIENT WAS FASTINGP ERFORMED BY: CHRIS LabGuerrero BatesAlqpne5645 [address] [facility] [id number] Cholesterol mass conc 245 mg/dL Abnormal 100-199 Com prehensive Internal Medicine Work Phone: Comment on above: PATIENT WAS FASTINGP ERFORMED BY: CHRIS LabCotrudi BatesQumvxj6287 [facility] [id number] Triglyceride mass conc 196 mg/dL Abnormal 0-149 [facility] Work Phone: Comment on above: PATIENT WAS FASTINGP ERFORMED BY: CHRIS LabGuerrero BatesOtuhvh1102 [facility] [id number] METABOLIC PANEL, COMPREHENSI VE ([id number])Ordered By: Paper Baler on 02-07-2013 Albumin mass conc 4.5 g/dL Normal 3.5-5.5 Compreh ensive Internal Medicine Work Phone: Comment on above: PATIENT WAS FASTINGP ERFORMED BY: CHRIS LabGuerrero BatesNcksda2963 [facility] [id number] Albumin/Globulin mass ratio 1.5 {ratio} Normal 1.1-2.5 [facility] Work Phone: Comment on above: PATIENT WAS FASTINGP ERFORMED BY: CHRIS [facility] Zbnezq8959 [facility] [id number] ALP [Catalytic activity/Vol] 71 U/L Normal 25-150 [facility]; [facility] Work Phone: Comment on above: PATIENT WAS FASTINGP ERFORMED BY: CHRIS [facility] Jdkpkf9841 [facility] [id number] ALP enzyme act/vol 71 [iU]/L Normal 25-150 Compre [facility] Internal Medicine Work Phone: Comment on above: PATIENT WAS FASTINGP ERFORMED BY: CHRIS [facility] Zqbxee4785 [address] [facility] [id number] ALT [Catalytic activity/Vol] 25 U/L Normal 0-32 [facility]; [facility] Work Phone: Comment on above: PATIENT WAS FASTINGP ERFORMED BY: CHRIS LabCotrudi Yzktia4069 [address] RoadDublin [place] [id number] ALT enzyme act/vol 25 [iU]/L Normal 0-32 Compre [facility] Internal Medicine Work Phone: Comment on above: PATIENT WAS FASTINGP ERFORMED BY: CHRIS LabCotrudi BatesVdsoke1059 [address] [facility] [place] [id number] AST [Catalytic activity/Vol] 13 U/L Normal 0-40 [facility] Internal Medicine; [facility] Internal Medicine Work Phone: Comment on above: PATIENT WAS FASTINGP ERFORMED BY: CHRIS LabCotrudi BatesNlvjra4387 Game[address] Roadblin [place] [id number] AST enzyme act/vol 13 [iU]/L Normal 0-40 [facility] Internal Medicine Work Phone: Comment on above: PATIENT WAS FASTINGP ERFORMED BY: CHRIS LabGuerrero BatesBpccme3385 [address] [facility] [place] [id number] Bilirubin mass conc 0.5 mg/dL Normal 0.0-1.2 Compr ensive Internal Medicine Work Phone: Comment on above: PATIENT WAS FASTINGP ERFORMED BY: CHRIS LabGuerrero BatesPvlpha5123 [address] [facility] [place] [id number] Calcium mass conc 9.7 mg/dL Normal 8.7-10.2 Compreh ensive Internal Medicine Work Phone: Comment on above: PATIENT WAS FASTINGP ERFORMED BY: CHRIS [facility] Anxkqr5769 [address] [facility]in [place] [id number] Chloride molar conc 99 mmol/L Normal 97-108 Compr ensive Internal Medicine Work Phone: Comment on above: PATIENT WAS FASTINGP ERFORMED BY: CHRIS [facility] Tllhzd5380 [address] Roadblin [place] [id number] CO2 molar conc 22 mmol/L Normal 20-32 Comprehens domingo Internal Medicine Work Phone: Comment on above: Effective February 10, 2013, the reference interval for Carbon Dioxide, Total will be changing to: 0 - 7 days 18 - 28 8 - 30 days 17 - 27 31 d - 5 months 15 - 6 m - up to 1 year - 1 - 12 years 17 - > 12 years - PATIENT WAS FASTINGP ERFORMED BY: LabCo Acbihv1697 [facility] [place] [id number] Creatinine mass conc 0.49 mg/dL Abnormal 0.57-1.00 Comp rehensive Internal Medicine Work Phone: Comment on above: PATIENT WAS FASTINGP ERFORMED BY: [facility] Evxijb5105 [address] [facility] [id number] GFR/1.73 sq M predicted among blacks CKD-EPI vol rate/area (S/P/Bld) 126 mL/min/1.73 Normal Comprehensiv e Internal Medicine Work Phone: Comment on above: PATIENT WAS FASTINGP ERFORMED BY: Lab[facility] Tqofjd2577 [facility] [id number] GFR/1.73 sq M predicted among non-blacks CKD-EPI vol rate/area (S/P/Bld) 109 mL/min/1.73 Normal [facility] Internal Medicine Work Phone: Comment on above: PATIENT WAS FASTINGP ERFORMED BY: LabCo Wwqmlz9950 [facility] [id number] Globulin Calculated mass conc (S) 3.1 g/dL Normal 1.5-4.5 [facility] Work Phone: Globulin mass conc (S) 3.1 g/dL Normal 1.5-4.5 [facility] Work Phone: Comment on above: PATIENT WAS FASTINGP ERFORMED BY: [facility] Aykisf0714 [facility]in [place] [id number] Glucose mass conc 90 mg/dL Normal 65-99 Compreh ensive Internal Medicine Work Phone: Comment on above: PATIENT WAS FASTINGP ERFORMED BY: [facility] Uvisus9551 [address] [facility] [place] [id number] Potassium molar conc 3.8 mmol/L Normal 3.5-5.2 Comp rehensive Internal Medicine Work Phone: Comment on above: PATIENT WAS FASTINGP ERFORMED BY: CHRIS ToritoGuerrero BatesZkaguu4525 [facility] [id number] Protein mass conc 7.6 g/dL Normal 6.0-8.5 Compreh ensive Internal Medicine Work Phone: Comment on above: PATIENT WAS FASTINGP ERFORMED BY: CHRIS ToritoGuerrero aBtesEgavza9997 [facility] [id number] Sodium molar conc 139 mmol/L Normal 134-144 Compreh ensive Internal Medicine Work Phone: Comment on above: PATIENT WAS FASTINGP ERFORMED BY: CHRIS ToritoGuerrero BatesHfdzmb3039 [facility] [id number] Urea nitrogen mass conc 11 mg/dL Normal 6-24 [facility] Medicine Work Phone: Comment on above: PATIENT WAS FASTINGP ERFORMED BY: CHRIS Bateslin6370 [facility] [id number] Urea nitrogen/Creatinine mass ratio 22 mg/mg Normal 9-23 [facility] Medicine Work Phone: Comment on above: PATIENT WAS FASTINGP ERFORMED BY: CHRIS Bateslin6370 [facility] [id number] MICROALBUMINOrdered By: Syst em Labor Contractor on 02-07-2013 Albumin DL <= 20 mg/L mass conc (U) 26.9 ug/mL Abnormal 0.0-17.0 [facility] Work Phone: Comment on above: PATIENT WAS FASTINGP ERFORMED BY: CHRIS ToritoGuerrero BatesDsfhst4194 [facility] [id number] Albumin/Creatinine mass ratio (U) 82.8 {mg/g_creat} Abnormal 0.0-30.0 [facility] Work Phone: Comment on above: PATIENT WAS FASTINGP ERFORMED BY: CHRIS ToritoGuerrero BatesQeiwdk5843 [facility] [id number] Creatinine mass conc (U) 32.5 mg/dL Normal 15.0-278.0 [facility] Work Phone: Comment on above: PATIENT WAS FASTINGP ERFORMED BY: CB [facility] Wwwpbo3979 [address] [facility] [id number] LIPID PANEL ([id number])Ordered B y: Paper Baler on 07-11-2012 Cholesterol in HDL mass conc 52 mg/dL Normal [facility] Work Phone: Comment on above: According to ATP-III Guidelines, HDL-C >59 mg/dL is considered anegative risk factor for CHD. today; PATIENT WAS F ASTINGPERFORMED BY: CB [facility] Xisyak2024 [address] [facility] [id number] Information: [id number] Cholesterol in LDL mass conc 153 mg/dL Abnormal 0-99 [facility] Work Phone: Comment on above: today; PATIENT WAS F ASTINGPERFORMED BY: CB [facility] Ynaszx2135 [facility] [id number] Information: [id number] Cholesterol in LDL/Cholesterol in HDL mass ratio 2.9 {ratio_units} Normal 0.0-3.2 [facility] Work Phone: Comment on above: today; PATIENT WAS F ASTINGPERFORMED BY: CB [facility] Ydplph4795 [facility] [id number] Information: [id number] Cholesterol in VLDL mass conc 37 mg/dL Normal 5-40 [facility] Work Phone: Comment on above: today; PATIENT WAS F ASTINGPERFORMED BY: CB [facility] Cwltgh9189 [facility] [id number] Information: [id number] Cholesterol mass conc 242 mg/dL Abnormal 100-199 [facility] prehensive Internal Medicine Work Phone: Comment on above: today; PATIENT WAS F ASTINGPERFORMED BY: CB [facility] Nfmfhq7918 [facility] [id number] Information: [id number] Triglyceride mass conc 186 mg/dL Abnormal 0-149 [facility] Work Phone: Comment on above: today; PATIENT WAS F ASTINGPERFORMED BY: CB [facility] Dqwihc3016 [address] RoadDublin [place] [id number] Information: [id number] Blood Glucose , Office ([phone])Ordered By: ARIEL Bradshaw on 06-13-2012 Glucose Glucometer molar conc (BldC) 100 1 Normal [facility] Work Phone: HgA1C , Office ([id number])Ordere d By: ARIEL Bradshaw on 06-13-2012 Hemoglobin A1c/Hemoglobin.total mass fraction (Bld) 5.7 % Normal 4.6 - 7.1 Comprehensiv e Internal Medicine Work Phone: METABOLIC PANEL, COMPREHENSI VE ([id number])Ordered By: Paper Baler on 06-13-2012 Albumin mass conc 4.5 g/dL Normal 3.5-5.5 Compreh ensive Internal Medicine Work Phone: Comment on above: today; PATIENT NOT F ASTINGPERFORMED BY: CB [facility] Yjmyvj0196 [address] RoadDuin [place] [id number] Information: [id number] Albumin/Globulin mass ratio 1.5 {ratio} Normal 1.1-2.5 [facility] Work Phone: Comment on above: today; PATIENT NOT F ASTINGPERFORMED BY: CB [facility] Kwcyuv0834 [address] RoadDuin [place] [id number] Information: [id number] ALP [Catalytic activity/Vol] 68 U/L Normal 25-150 [facility]; [facility] Work Phone: Comment on above: today; PATIENT NOT F ASTINGPERFORMED BY: CB [facility] Ewvrsg5028 [address] RoadDublin [place] [id number] Information: [id number] ALP enzyme act/vol 68 [iU]/L Normal 25-150 [facility]pre [facility] Internal Medicine Work Phone: Comment on above: today; PATIENT NOT F ASTINGPERFORMED BY: CB [facility] Cscctn2368 [address] RoadDublin [place] [id number] Information: [id number] ALT [Catalytic activity/Vol] 23 U/L Normal 0-40 [facility] Internal Medicine; [facility] Internal Medicine Work Phone: Comment on above: Effective June 24, 2012 the reference interval for ALT (SGPT) will be changing to: Male Female 0 - 11 years 0 - 29 0 - 28 12 - 17 years 0 - 30 0 - 24 > 17 years 0 - 44 0 - 32 today; PATIENT NOT F ASTINGPERFORMED BY: CB [facility] Nuitrr9622 [address] [facility] [id number] Information: [id number] ALT enzyme act/vol 23 [iU]/L Normal 0-40 [facility] Internal Medicine Work Phone: Comment on above: Effective June 24, 2012 the reference interval for ALT (SGPT) will be changing to: Male Female 0 - 11 years 0 - 29 0 - 28 12 - 17 years 0 - 30 0 - 24 > 17 years 0 - 44 0 - 32 today; PATIENT NOT F ASTINGPERFORMED BY: CB [facility] Ejlglc1906 [facility] [id number] Information: [id number] AST [Catalytic activity/Vol] 17 U/L Normal 0-40 [facility] Internal Medicine; [facility] Internal Medicine Work Phone: Comment on above: today; PATIENT NOT F ASTINGPERFORMED BY: CB [facility] Gqcpbv9360 [facility] [id number] Information: [id number] AST enzyme act/vol 17 [iU]/L Normal 0-40 [facility] Internal Medicine Work Phone: Comment on above: today; PATIENT NOT F ASTINGPERFORMED BY: CB [facility] Qxngdf6153 [facility]zAl[facility] [id number] Information: [id number] Bilirubin mass conc 0.5 mg/dL Normal 0.0-1.[address] [facility] Internal Medicine Work Phone: Comment on above: today; PATIENT NOT F ASTINGPERFORMED BY: CB [facility] Qusapi9116 [address] RoadFormerly [facility]in [place] [id number] Information: [id number] Calcium mass conc 9.8 mg/dL Normal 8.7-10.2 Compreh ensive Internal Medicine Work Phone: Comment on above: today; PATIENT NOT F ASTINGPERFORMED BY: CB [facility] Pzfxod3726 [address]z RoadAdventHealth Hendersonville [id number] Information: [id number] Chloride molar conc 100 mmol/L Normal 97-108 Compr ehensive Internal Medicine Work Phone: Comment on above: today; PATIENT NOT F ASTINGPERFORMED BY: CB [facility] Edspcz1154 Gamez RoadAdventHealth Hendersonville [id number] Information: [id number] CO2 molar conc 24 mmol/L Normal 20-32 Comprehens domingo Internal Medicine Work Phone: Comment on above: today; PATIENT NOT F ASTINGPERFORMED BY: CB [facility] Mwlqff6384 [address] [facility] [id number] Information: [id number] Creatinine mass conc 0.51 mg/dL Abnormal 0.57-1.00 Comp rehensive Internal Medicine Work Phone: Comment on above: today; PATIENT NOT F ASTINGPERFORMED BY: CB [facility] Sxsrmr2878 [address] [facility] [id number] Information: [id number] GFR/1.73 sq M predicted among blacks CKD-EPI vol rate/area (S/P/Bld) 125 mL/min/1.73 Normal Comprehensiv e Internal Medicine Work Phone: Comment on above: today; PATIENT NOT F ASTINGPERFORMED BY: CB [facility] Xzrhof9537 [address] RoadFormerly [facility]in [place] [id number] Information: [id number] GFR/1.73 sq M predicted among non-blacks CKD-EPI vol rate/area (S/P/Bld) 109 mL/min/1.73 Normal [facility] Work Phone: Comment on above: today; PATIENT NOT F ASTINGPERFORMED BY: CB [facility] Mujpew8640 [address] [facility] [id number] Information: [id number] Globulin Calculated mass conc (S) 3.0 g/dL Normal 1.5-4.5 [facility] Work Phone: Globulin mass conc (S) 3.0 g/dL Normal 1.5-4.5 [facility] Work Phone: Comment on above: today; PATIENT NOT F ASTINGPERFORMED BY: CB [facility] Bxwiey7957 [address] [facility] [id number] Information: [id number] Glucose mass conc 88 mg/dL Normal 65-99 Compreh ensive Internal Medicine Work Phone: Comment on above: today; PATIENT NOT F ASTINGPERFORMED BY: CB [facility] Bepora7189 [address] [facility] [id number] Information: [id number] Potassium molar conc 4.2 mmol/L Normal 3.5-5.2 Comp rehensive Internal Medicine Work Phone: Comment on above: today; PATIENT NOT F ASTINGPERFORMED BY: CB [facility] Rusvyx5779 [address] [facility] [id number] Information: [id number] Protein mass conc 7.5 g/dL Normal 6.0-8.5 Compreh ensive Internal Medicine Work Phone: Comment on above: today; PATIENT NOT F ASTINGPERFORMED BY: CB [facility] Pysynt8028 [address] [facility]in [place] [id number] Information: [id number],[id number] Sodium molar conc 141 mmol/L Normal 134-144 Compreh ensive Internal Medicine Work Phone: Comment on above: today; PATIENT NOT F ASTINGPERFORMED BY: CB [facility] Chtsgz9477 [address] [facility] [id number] Information: [id number] Urea nitrogen mass conc 11 mg/dL Normal 6-24 [facility] Work Phone: Comment on above: today; PATIENT NOT F ASTINGPERFORMED BY: [facility] Mhhddo7941 [facility] [id number] Information: [id number] Urea nitrogen/Creatinine mass ratio 22 mg/mg Normal 9-23 [facility] Work Phone: Comment on above: today; PATIENT NOT F ASTINGPERFORMED BY: [facility] Jqoilh7955 [facility] [id number] Information: [id number] Blood Glucose , Office (1960 2)Ordered By: ARIEL Bradshaw on 02-19-2012 Glucose Glucometer molar conc (BldC) 103 1 Normal [facility] Work Phone: HgA1C , Office ([phone])Ordere d By: Adolfo Osborn on 02-19-2012 Hemoglobin A1c/Hemoglobin.total mass fraction (Bld) 5.5 % Normal 4.6 - 7.1 Comprehensiv e Internal Medicine Work Phone: CHEST, PA AND LATERALOrdered By: Paper Baler on 02-14-2012 CHEST, PA AND LATERAL See Note Normal Com prehensive Internal Medicine Work Phone: Comment on above: PROCEDURE: X-RAY DREW REASON FOR EXAM: Female, 56 years old. [...] Melchor M.D.February 15, 2012 at 1:38:03 AM [phone] Signed SM/SM If you are the referring physician and would like to consult with theradiologist who provided this interpretation, please contact Fer Sotelo at . If this radiologist is unavailable, youwill be directed to another radiologist to assist. If you are a patient with a question regarding this report, pleasecontactyour referring physician directly. Professional Interpretation Provided By: [employer] retargeting, Phone , Dictated on 02/14/12 1429 by Jill ORTA, SupratikTranscribed on 02/15/12 1330 by ITS IMPORTSign by Jill ORTA, Supratik on 02/15/12 1331 Sign by: Jill ORTA, Supratik; ADDENDA: pt has apt next week. CMPOrdered By: System Manage r on 02-14-2012 Albumin mass conc 4.0 g/dL Normal 3.4-5.0 Compreh ensive Internal Medicine Work Phone: Albumin/Globulin mass ratio 0.9 {RATIO} Normal 0.9-2.4 [facility] Work Phone: ALP enzyme act/vol 62 U/L Normal 50-136 Compre [facility] Internal Medicine Work Phone: ALT enzyme act/vol 39 U/L Normal 12-78 [facility] Internal Medicine Work Phone: Anion gap 3 molar conc 9 mmol/L Normal 5-15 [facility] Work Phone: Anion gap molar conc 9 mmol/L Normal 5-15 Comp rehensive Internal Medicine Work Phone: AST enzyme act/vol 20 U/L Normal 15-37 Compre [facility] Internal Medicine Work Phone: Bilirubin mass conc 0.50 mg/dL Normal 0.00-1.00 Compr ensive Internal Medicine Work Phone: Calcium mass conc 9.1 mg/dL Normal 8.5-10.1 Compreh ensive Internal Medicine Work Phone: Chloride molar conc 103 mmol/L Normal 98-107 Compr ehensive Internal Medicine Work Phone: CO2 molar conc 27.0 mmol/L Normal 21.0-32.0 Comprehen sive Internal Medicine Work Phone: Creatinine mass conc 0.6 mg/dL Normal 0.6-1.0 Comp rehensive Internal Medicine Work Phone: GFR/1.73 sq M predicted among blacks MDRD vol rate/area (S/P/Bld) 133 mL/min/{1.73_m2} Normal Compreh ensive Internal Medicine Work [...] Medicine Work Phone: Comment on above: f/u 02/19/12 Cholesterol in VLDL mass conc 50 mg/dL Abnormal 5-40 [facility] Work Phone: Comment on above: f/u 02/19/12 Cholesterol mass conc 223 mg/dL Abnormal [facility] prehensive Internal Medicine Work Phone: Comment on above: <200 mg/dL Desirable 200-240 mg/dL Borderline >240 mg/dL High Risk f/u 02/19/12 Triglyceride mass conc 248 mg/dL Abnormal Comprehensive [...] Work Phone: CHEST WITH CONTRASTOrdered B y: Paper Baler on 02-02-2012 CHEST WITH CONTRAST See Note [...] EDTElectronically Signed GP/GP Professional Interpretation Provided By: slinksetSiri [facility], , To consult with a radiologist regarding this report, please call our [id number] line @ Dictated on 02/02/12 1117 by Dieter ORTA,Allanscribed on 02/02/12 1152 by ITS IMPORTSign by Dieter ORTA,Porter on 02/02/12 1153 Sign by: Porter Garcias MD MYOCARD PERF STRESS/REST MUL TOrdered By: Paper Baler on 02-01-2012 MYOCARD PERF STRESS/REST MULT See [...] reports an LVEF of 67%. Dictated on 02/01/12 0928 by Vandana ORTA,BiggTranscribed on 02/01/12 1039 by Reddy GONZALEZ by Vandana ORTA,Bigg on 02/01/12 3799 Sign by: Bigg Ross MD HgA1C , Office ([id number])Ordere d By: Mary Nick on 11-21-2011 Hemoglobin A1c/Hemoglobin.total mass fraction (Bld) 5.4 % Normal 4.6 - 7.1 Comprehensiv e Internal Medicine Work Phone: CBCD,SMEAR DIFFOrdered By: Winter ystem Labor Contractor on 01-04-2010 Eosinophils/100 WBC (Bld) 4 % [...] Work Phone: Platelets #/vol (Bld) SeeNote Normal Com prehensive Internal Medicine Work Phone: Comment on above: Result: ADEQUATE Platelets Auto #/vol (Bld) 359 10*3/uL Normal 150-450 [facility] Work Phone: RBC #/vol (Bld) 4.83 {M/mm3} Normal 4.2-5.4 Compreh ensive Internal Medicine Work Phone: RBC Auto #/vol (Bld) 4.83 {M/mm3} Normal 4.2-5.4 [facility] Work Phone: WBC #/vol (Bld) 7.8 10*3/uL Normal 4.4-11.0 Comprehe nsive Internal Medicine Work Phone: WBC Auto #/vol (Bld) 7.8 10*3/uL Normal 4.4-11.0 Com prehensive Internal Medicine Work Phone: CBCD,SMEAR DIFF SeeNote Normal Comprehen [facility] Internal Medicine Work Phone: Comment on above: Result: NORM C+C Result: ADEQUATE CBCD,SMEAR DIFF 100 1 Normal Comprehen [facility] Internal Medicine Work Phone: CBCD,SMEAR DIFF 58 % Normal 47-70 [facility] Work Phone: COMP METABOLICOrdered By: Kody stem Labor Contractor on 01-04-2010 Albumin mass conc 3.9 g/dL Normal 3.4-5.0 Compreh [facility] Internal Medicine Work Phone: Albumin/Globulin mass ratio 0.9 {RATIO} Normal 0.9-2.4 [facility] Internal Medicine Work Phone: ALP enzyme act/vol 76 U/L Normal 50-136 Compre [facility] Internal Medicine Work Phone: ALT enzyme act/vol 36 U/L Normal 12-78 Compre [facility] Internal Medicine Work Phone: Anion gap 3 molar conc 12 mmol/L Normal 5-15 [facility] Work Phone: Anion gap molar conc 12 mmol/L Normal 5-15 Comp [facility] Internal [facility] Work Phone: AST enzyme act/vol 9 U/L Abnormal 15-37 Compre [facility] Internal Medicine Work Phone: Bilirubin mass conc 0.30 mg/dL Normal 0.00-1.00 Compr ehensive Internal Medicine Work Phone: Calcium mass conc 9.0 mg/dL Normal 8.5-10.1 Compreh ensive Internal Medicine Work Phone: Chloride molar conc 99 mmol/L Normal 98-107 Compr ehensive Internal Medicine Work Phone: CO2 molar conc 24.0 mmol/L Normal 21.0-32.0 Comprehen [facility] Internal Medicine Work Phone: Creatinine mass conc 0.6 mg/dL Normal 0.6-1.0 Comp rehensive Internal Medicine Work Phone: GFR/1.73 sq M [...] Time Vital Sign Value Performing Clinician Facility 06-12-2025 08:12-0400 Body height 165.[address] Adolfo Osborn MD Work Phone: 06-12-2025 08:12-0400 Body mass index (BMI) [Ratio] 27.1 kg/m2 Dr. Adolfo Osborn MD Work Phone: 06-12-2025 08:12-0400 Body weight 73.[address] Adolfo Osborn MD Work Phone: 06-12-2025 08:12-0400 Diastolic blood pressure 92 mm[Hg] Dr. Adolfo Osborn MD Work Phone: 06-12-2025 08:12-0400 Heart rate 70 /min Dr. Adolfo Osborn MD Work Phone: 06-12-2025 08:12-0400 Respiratory rate 20 /min Dr. Adolfo Osborn MD Work Phone: 06-12-2025 08:12-0400 SaO2% (BldA) [Mass fraction] 94 % Dr. Adolfo Osborn MD Work Phone: 06-12-2025 08:12-0400 Systolic blood pressure 182 mm[Hg] Dr. Adolfo Osborn MD Work Phone: 03-03-2025 10:21-0400 Body mass index (BMI) [Ratio] 62.77 kg/m2 Deja Hrnchar PROCEDURES TECH.ESTIMATOR AND DRAFTER SUPERVISOR Work Phone: [facility] 03-03-2025 10:21-0400 Body weight 171.1 kg Deja Hrnchar PROCEDURES TECH.ESTIMATOR AND DRAFTER SUPERVISOR Work Phone: [facility] 03-03-2025 10:21-0400 Diastolic blood pressure 96 mm[Hg] Deja Hrnchar PROCEDURES TECH.ESTIMATOR AND DRAFTER SUPERVISOR Work Phone: [facility] 03-03-2025 10:21-0400 Heart rate 60 /min Deja Hrnchar PROCEDURES TECH.ESTIMATOR AND DRAFTER SUPERVISOR Work Phone: [facility] 03-03-2025 10:21-0400 Respiratory rate 18 /min Deja Hrnchar PROCEDURES TECH.ESTIMATOR AND DRAFTER SUPERVISOR Work Phone: [facility] 03-03-2025 10:21-0400 SaO2% (BldA) [Mass fraction] 96 % Deja Hrnchar PROCEDURES TECH.ESTIMATOR AND DRAFTER SUPERVISOR Work Phone: [facility] 03-03-2025 10:21-0400 Systolic blood pressure 163 mm[Hg] Deja Hrnchar PROCEDURES TECH.ESTIMATOR AND DRAFTER SUPERVISOR Work Phone: [facility] 09-02-2024 09:48-0500 Body mass index (BMI) [Ratio] 61.93 kg/m2 Deja Hrnchar PROCEDURES TECH.ESTIMATOR AND DRAFTER SUPERVISOR Work Phone: [facility] 09-02-2024 09:48-0500 Body temperature 98.91 [degF] Deja Hrnchar PROCEDURES TECH.ESTIMATOR AND DRAFTER SUPERVISOR Work Phone: [facility] 09-02-2024 09:48-0500 Body weight 168.8 kg Deja Hrnchar PROCEDURES TECH.ESTIMATOR AND DRAFTER SUPERVISOR Work Phone: [facility] 09-02-2024 09:48-0500 Diastolic blood pressure 94 mm[Hg] Deja Hrnchar PROCEDURES TECH.ESTIMATOR AND DRAFTER SUPERVISOR Work Phone: [facility] 09-02-2024 09:48-0500 Heart rate 60 /min Deja Hrnchar PROCEDURES TECH.ESTIMATOR AND DRAFTER SUPERVISOR Work Phone: [facility] 09-02-2024 09:48-0500 Respiratory rate 18 /min Deja Hrnchar PROCEDURES TECH.ESTIMATOR AND DRAFTER SUPERVISOR Work Phone: [facility] 09-02-2024 09:48-0500 SaO2% (BldA) [Mass fraction] 90 % Deja Hrnchar PROCEDURES TECH.ESTIMATOR AND DRAFTER SUPERVISOR Work Phone: [facility] 09-02-2024 09:48-0500 Systolic blood pressure 184 mm[Hg] Deja Hrnchar PROCEDURES TECH.ESTIMATOR AND DRAFTER SUPERVISOR Work Phone: [facility] 08-14-2024 10:22-0500 Body mass index (BMI) [Ratio] 61.23 kg/m2 Sera Reddy MD Work Phone: [facility] 08-14-2024 10:22-0500 Body temperature 98.29 [degF] Sera Reddy MD Work Phone: [facility] 08-14-2024 10:22-0500 Body weight 166.9 kg Sera Reddy MD Work Phone: [facility] 08-14-2024 10:22-0500 Diastolic blood pressure 95 mm[Hg] Sera Reddy MD Work Phone: [facility] 08-14-2024 10:22-0500 Heart rate 60 /min Sera Reddy MD Work Phone: [facility] 08-14-2024 10:22-0500 Respiratory rate 18 /min Sera Reddy MD Work Phone: [facility] 08-14-2024 10:22-0500 SaO2% (BldA) [Mass fraction] 95 % Sera Reddy MD Work Phone: [facility] 08-14-2024 10:22-0500 Systolic blood pressure 178 mm[Hg] Sera Reddy MD Work Phone: [facility] 07-17-2024 12:29-0500 Body height 165.1 cm Pacc 1 Work Phone: [facility] 07-17-2024 12:29-0500 Body mass index (BMI) [Ratio] 61.08 kg/m2 Pacc 1 Work Phone: [facility] 07-17-2024 12:29-0500 Body temperature 98.71 [degF] Pacc 1 Work Phone: [facility] 07-17-2024 12:29-0500 Body weight 166.5 kg Pacc 1 Work Phone: [facility] 07-17-2024 12:29-0500 Diastolic blood pressure 68 mm[Hg] Pacc 1 Work Phone: [facility] 07-17-2024 12:29-0500 Heart rate 60 /min Pacc 1 Work Phone: [facility] 07-17-2024 12:29-0500 Respiratory rate 16 /min Pacc 1 Work Phone: [facility] 07-17-2024 12:29-0500 SaO2% (BldA) [Mass fraction] 95 % Pacc 1 Work Phone: [place] [address]-21-2024 12:29-0500 Systolic blood pressure 171 mm[Hg] Pacc 1 Work Phone: [facility] 07-15-2024 08:34-0500 Body height 165.1 cm Patent Lawyer 4 Work Phone: [facility] 07-10-2024 09:33-0500 Body mass index (BMI) [Ratio] 62.33 kg/m2 Sera Reddy MD Work Phone: [facility] 07-10-2024 09:33-0500 Body weight 167.3 kg Sera Reddy MD Work Phone: [facility] 07-10-2024 09:33-0500 Diastolic blood pressure 81 mm[Hg] Sera Reddy MD Work Phone: [facility] 07-10-2024 09:33-0500 Heart rate 70 /min Sera Reddy MD Work Phone: [facility] 07-10-2024 09:33-0500 Respiratory rate 18 /min Sera Reddy MD Work Phone: [facility] 07-10-2024 09:33-0500 SaO2% (BldA) [Mass fraction] 93 % Sera Reddy MD Work Phone: [facility] 07-10-2024 09:33-0500 Systolic blood pressure 198 mm[Hg] Sera Reddy MD Work Phone: [facility] 06-19-2024 09:24-0400 Body mass index (BMI) [Ratio] 61.18 kg/m2 Arleth Lau PROCEDURES TECH.ESTIMATOR AND DRAFTER SUPERVISOR Work Phone: [facility] 06-19-2024 09:24-0400 Body weight 164.2 kg Arleth Lau PROCEDURES TECH.ESTIMATOR AND DRAFTER SUPERVISOR Work Phone: [facility] 06-19-2024 09:24-0400 Diastolic blood pressure 74 mm[Hg] Arleth Lau APRN.ESTIMATOR AND DRAFTER SUPERVISOR Work Phone: [facility] 06-19-2024 09:24-0400 Systolic blood pressure 152 mm[Hg] Arleth Abijulianna LOREN Work Phone: [facility] 05-08-2024 11:02-0400 Body height 163.8 cm Hunter Her MD Work Phone: [facility] 05-08-2024 11:02-0400 Body mass index (BMI) [Ratio] 61.18 kg/m2 Hunter Her MD Work Phone: [facility] 05-08-2024 11:02-0400 Body weight 164.2 kg Hunter Her MD Work Phone: [facility] 05-08-2024 11:02-0400 Diastolic blood pressure 88 mm[Hg] Hunter Her MD Work Phone: [facility] 05-08-2024 11:02-0400 Systolic blood pressure 152 mm[Hg] Hunter Her MD Work Phone: [facility] 07-25-2022 11:37-0500 Body height 162.56 cm Wanda [...] 11:37-0500 Diastolic blood pressure 90 mm[Hg] Wanda Kwame CRACKING UNIT OPERATOR [facility] Work Phone: Comment on above: Patient Position: Sitting; Cuff Location : Left Arm; Cuff Size: Standard 07-25-2022 11:37-0500 Heart rate 67 /min Wanda Puente CRACKING UNIT OPERATOR [facility]; [facility] Work Phone: Comment on above: Pattern: Regular 07-25-2022 11:37-0500 Respiratory rate 18 /min Wanda Puenet CRACKING UNIT OPERATOR [facility]; [facility] Work Phone: Comment on above: Pattern: Unlabored 07-25-2022 11:37-0500 SaO2% (BldA) [Mass fraction] 96 % Wanda Puente CRACKING UNIT OPERATOR [facility]; [facility] Work Phone: Comment on above: Room air 07-25-2022 11:37-0500 Systolic blood pressure 158 mm[Hg] Wanda Puente JAMESON [facility]; [facility] Work Phone: Comment on above: Patient Position: Sitting; Cuff Location : Left Arm; Cuff Size: Standard 04-06-2022 13:13-0400 Body height 165 cm Adolfo Bonezzi Other Phone: [facility] 04-06-2022 13:13-0400 Body temperature 98.6 [degF] Adolfo Bonezzi Other Phone: [facility] 04-06-2022 13:13-0400 Diastolic blood pressure 96 mm[Hg] Adolfo Bonezzi Other Phone: [facility] 04-06-2022 13:13-0400 Heart rate 80 /min Adolfo Bonezzi Other Phone: [facility] 04-06-2022 13:13-0400 SaO2% (BldA) [Mass fraction] 95 % Adolfo Bonezzi Other Phone: [facility] 04-06-2022 13:13-0400 Systolic blood pressure 160 mm[Hg] Adolfo Bonezzi Other Phone: [facility] 11-07-2021 10:17-0400 Body height 162.56 cm Dayanna Slarb CRACKING UNIT OPERATOR [facility] Work Phone: 11-07-2021 10:17-0400 Body mass index (BMI) [Ratio] 53.12 kg/m2 Dayanna Slarb CRACKING UNIT OPERATOR [facility] Work Phone: 11-07-2021 10:17-0400 Body surface area Derived from formula 2.36 m2 Dayanna Slarb CRACKING UNIT OPERATOR [facility]; [facility] Work Phone: 11-07-2021 10:17-0400 Body temperature 97.1 [degF] Dayanna Slarb CRACKING UNIT OPERATOR [facility]; [facility] Work Phone: 11-07-2021 10:17-0400 Body weight 140.39 kg Dayanna Slarb CRACKING UNIT OPERATOR [facility]; [facility] Work Phone: 11-07-2021 10:17-0400 Diastolic blood pressure 82 mm[Hg] Dayanna Slarb CRACKING UNIT OPERATOR [facility]; [facility] Work Phone: Comment on above: Patient Position: Sitting; Cuff Location : Left Arm; Cuff Size: Standard 11-07-2021 10:17-0400 Heart rate 62 /min Dayanna Slarb CRACKING UNIT OPERATOR [facility]; [facility] Work Phone: Comment on above: Pattern: Regular 11-07-2021 10:17-0400 Respiratory rate 16 /min Dayanna Slarb CRACKING UNIT OPERATOR [facility]; [facility] Work Phone: Comment on above: Pattern: Unlabored 11-07-2021 10:17-0400 SaO2% (BldA) [Mass fraction] 95 % Dayanna Slarb CRACKING UNIT OPERATOR [facility]; [facility] Work Phone: Comment on above: Room air 11-07-2021 10:17-0400 Systolic blood pressure 144 mm[Hg] Dayanna Slarb CRACKING UNIT OPERATOR [facility]; [facility] Work [...] height 165 cm Adolfo Bonezzi Other Phone: [facility] 04-12-2021 12:31-0400 Body temperature 98.6 [degF] Adolfo Bonezzi Other Phone: [facility] 04-12-2021 12:31-0400 Diastolic blood pressure 75 mm[Hg] Adolfo Bonezzi Other Phone: [facility] 04-12-2021 12:31-0400 Heart rate 77 /min Adolfo Bonezzi Other Phone: [facility] 04-12-2021 12:31-0400 SaO2% (BldA) [Mass fraction] 94 % Adolfo Bonezzi Other Phone: [facility] 04-12-2021 12:31-0400 Systolic blood pressure 185 mm[Hg] Adolfo Bonezzi Other Phone: [facility] 01-19-2021 01:04-0400 Diastolic blood pressure 87 mm[Hg] Adolfo Bonezzi Other Phone: [facility] 01-19-2021 01:04-0400 Heart rate 59 /min Adolfo Bonezzi Other Phone: [facility] 01-19-2021 01:04-0400 Respiratory rate 16 /min Adolfo Bonezzi Other Phone: [facility] 01-19-2021 01:04-0400 SaO2% (BldA) [Mass fraction] 98 % Adolfo Bonezzi Other Phone: [facility] 01-19-2021 01:04-0400 Systolic blood pressure 154 mm[Hg] Adolfo Bonezzi Other Phone: [facility] 01-18-2021 21:46-0400 Body height 165.1 cm Adolfo Bonezzi Other Phone: [facility] 01-18-2021 21:46-0400 Body temperature 98.24 [degF] Adolfo Boneiani Other Phone: [facility] 01-18-2021 21:46-0400 Body weight 131.8 kg Adolfo Bonezzi Other Phone: [facility] 09-17-2020 09:21-0500 BMI (Body Mass Index) 48.98 [...] 13:19-0500 Pulse Oximetry 98 % Adolfo Osborn [facility] Work Phone: Comment on above: Room air 10-16-2019 13:19-0500 Respiratory Rate 20 /min ARIEL Bradshaw LPN [facility] Work Phone: Comment on above: Pattern: Unlabored 10-16-2019 13:19-0500 SaO2% (BldA) [Mass fraction] 98 % ARIEL Bradshaw JAMESON [facility]; [facility] Work Phone: Comment on above: Room air 04-14-2019 13:30-0400 BMI (Body Mass Index) 49.09 kg/m2 ARIEL Bradshaw JAMESON [facility] Work Phone: 04-14-2019 13:30-0400 Body Temperature 97.9 [degF] ARIEL Bradshaw JAMESON [facility] Work Phone: Comment on above: Method: Temporal 04-14-2019 13:30-0400 Body weight 129.73 kg ARIEL Bradshaw CRACKING UNIT OPERATOR [facility] Work Phone: 04-14-2019 13:30-0400 BP Diastolic 84 mm[Hg] ARIEL Bradshaw CRACKING UNIT OPERATOR [facility] Work Phone: Comment on above: Patient Position: Sitting; Cuff Location : Left Arm; Cuff Size: Large 04-14-2019 13:30-0400 BP Systolic 152 mm[Hg] ARIEL Bradshaw CRACKING UNIT OPERATOR [facility] Work Phone: Comment on above: Patient Position: Sitting; Cuff Location : Left Arm; Cuff Size: Large 04-14-2019 13:30-0400 BSA (Body Surface Area) 2.28 m2 ARIEL Bradshaw JAMESON [facility] Work Phone: 04-14-2019 13:30-0400 Height 162.56 cm ARIEL Bradshaw JAMESON [facility] Work Phone: 04-14-2019 13:30-0400 Pulse (Heart Rate) 80 /min ARIEL Bradshaw CRACKING UNIT OPERATOR [facility] Work Phone: Comment on above: Pattern: Regular 04-14-2019 13:30-0400 Pulse Oximetry 98 % Adolfo Osborn [facility] Work Phone: Comment on above: Room air 04-14-2019 13:30-0400 Respiratory Rate 20 /min ARIEL Bradshaw LPN [facility] Work Phone: Comment on above: Pattern: Unlabored 04-14-2019 13:30-0400 SaO2% (BldA) [Mass fraction] 98 % ARIEL Bradshaw LPN [facility]; [facility] Work Phone: Comment on above: Room air 09-03-2018 10:51-0500 BMI (Body Mass Index) 49.43 kg/m2 ARIEL Bradshaw LPN [facility] Work Phone: 09-03-2018 10:51-0500 Body Temperature 97.6 [degF] ARIEL Bradshaw LPN [facility] Work Phone: Comment on above: Method: Temporal 09-03-2018 10:51-0500 Body weight 130.64 kg ARIEL Bradshaw LPN [facility] Work Phone: 09-03-2018 10:51-0500 BP Diastolic 84 mm[Hg] ARIEL Bradshaw LPN [facility] Work Phone: Comment on above: Patient Position: Sitting; Cuff Location : Left Wrist; Cuff Size: Large 09-03-2018 10:51-0500 BP Systolic 130 mm[Hg] ARIEL Bradshaw LPN [facility] Work Phone: Comment on above: Patient Position: Sitting; Cuff Location : Left Wrist; Cuff Size: Large 09-03-2018 10:51-0500 BSA (Body Surface Area) 2.28 m2 ARIEL Bradshaw LPN [facility] Work Phone: 09-03-2018 10:51-0500 Height 162.56 cm ARIEL Bradshaw LPN [facility] Work Phone: 09-03-2018 10:51-0500 Pulse (Heart Rate) 78 /min ARIEL Bradshaw LPN [facility] Work Phone: Comment on above: Pattern: Regular 09-03-2018 10:51-0500 Pulse Oximetry 98 % Adolfo Osborn [facility] Work Phone: Comment on above: Room air 09-03-2018 10:51-0500 Respiratory Rate 20 /min ARIEL Bradshaw LPN [facility] Work Phone: Comment on above: Pattern: Unlabored 09-03-2018 10:51-0500 SaO2% (BldA) [Mass fraction] 98 % ARIEL Bradshaw JAMESON [facility]; [facility] Work Phone: Comment on above: Room air 09-03-2018 10:51-0500 Weight 130.64 kg Adolfo Osborn [facility] Work Phone: 11-02-2017 09:29-0500 BMI (Body Mass Index) 48.06 kg/m2 ARIEL Bradshaw JAMESON [facility] Work Phone: Comment on above: patient states she has not yet taken her Lopressor yet this am 11-02-2017 09:29-0500 Body Temperature 97.6 [degF] ARIEL Bradshaw LPN [facility] Work Phone: Comment on above: Method: Temporal patient states she h as not yet taken her Lopressor yet this am 11-02-2017 09:29-0500 Body weight 127.01 kg ARIEL Bradshaw LPN [facility] Work Phone: Comment on above: patient states she has not yet taken her Lopressor yet this am 11-02-2017 09:29-0500 BP Diastolic 90 mm[Hg] ARIEL Bradshaw JAMESON [facility] Work Phone: Comment on above: Patient Position: Sitting; Cuff Location : Left Arm; Cuff Size: Large patient states she h as not yet taken her Lopressor yet this am 11-02-2017 09:29-0500 BP Systolic 152 mm[Hg] ARIEL Bradshaw JAMESON [facility] Work Phone: Comment on above: Patient Position: Sitting; Cuff Location : Left Arm; Cuff Size: Large patient states she h as not yet taken her Lopressor yet this am 11-02-2017 09:29-0500 BSA (Body Surface Area) 2.26 m2 ARIEL Bradshaw JAMESON [facility] Work Phone: Comment on above: patient states she has not yet taken her Lopressor yet this am 11-02-2017 09:29-0500 Height 162.56 cm ARIEL Bradshaw JAMESON [facility] Work Phone: Comment on above: patient states she has not yet taken her Lopressor yet this am 11-02-2017 09:29-0500 Pulse (Heart Rate) 70 /min ARIEL Bradshaw JAMESON [facility] Work Phone: Comment on above: Pattern: Regular patient states she h as not yet taken her Lopressor yet this am 11-02-2017 09:29-0500 Pulse Oximetry 95 % Adolfo Osborn [facility] Work Phone: Comment on above: Room air patient states she h as not yet taken her Lopressor yet this am 11-02-2017 09:29-0500 Respiratory Rate 20 /min ARIEL Augsutine BARBA [facility] Work Phone: Comment on above: Pattern: Unlabored patient states she h as not yet taken her Lopressor yet this am 11-02-2017 09:29-0500 SaO2% (BldA) [Mass fraction] 95 % ARIEL Bradshaw JAMESON [facility]; [facility] Work Phone: Comment on above: Room air patient states she h as not yet taken her Lopressor yet this am 11-02-2017 09:29-0500 Weight 127.01 kg Adolfo Osborn [facility] Work Phone: Comment on above: patient states she has not yet taken her Lopressor yet this am 09-20-2017 07:24-0500 BMI (Body Mass Index) 48.4 kg/m2 Pratima Redmond [facility] Work Phone: 09-20-2017 07:24-0500 Body weight 127.92 kg Pratima Redmond [facility] Work Phone: 09-20-2017 07:24-0500 BP Diastolic 88 mm[Hg] Pratima Redmond [facility] Work Phone: Comment on above: Patient Position: Sitting; Cuff Location : Left Arm; Cuff Size: Standard 09-20-2017 07:24-0500 BP Systolic 134 mm[Hg] Pratima [facility] Work Phone: Comment on above: Patient Position: Sitting; Cuff Location : Left Arm; Cuff Size: Standard 09-20-2017 07:24-0500 BSA (Body Surface Area) 2.26 m2 Pratima [facility] Work Phone: 09-20-2017 07:24-0500 [facility] 162.56 [facility] Work Phone: 09-20-2017 07:24-0500 Pulse (Heart Rate) 60 /min [facility] Work Phone: Comment on above: Pattern: Regular 09-20-2017 07:24-0500 Pulse Oximetry 97 % Adolfo RobinsonRUST [facility] Work Phone: Comment on above: Room air 09-20-2017 07:24-0500 Respiratory Rate 18 /min [facility] Work Phone: Comment on above: Pattern: Unlabored 09-20-2017 07:24-0500 SaO2% (BldA) [Mass fraction] 97 % [facility]; [facility] Work Phone: Comment on above: Room air 09-20-2017 07:24-0500 Weight 127.92 kg [facility] Work Phone: 02-09-2017 13:46-0400 BMI (Body Mass Index) 48.92 kg/m2 Shobha Matson [facility] Work Phone: 02-09-2017 13:46-0400 Body Temperature 97.2 [degF] Shobha Matson [facility] Work Phone: Comment on above: Method: Temporal 02-09-2017 13:46-0400 Body weight 129.28 kg Shobha Matson [facility] Work Phone: 02-09-2017 13:46-0400 BP Diastolic 84 mm[Hg] Shobha Matson [facility] Work Phone: Comment on above: Patient Position: Sitting; Cuff Location : Left Arm; Cuff Size: Large 02-09-2017 13:46-0400 BP Systolic 136 mm[Hg] Shobha Matson [facility] Work Phone: Comment on above: Patient Position: Sitting; Cuff Location : Left Arm; Cuff Size: Large 02-09-2017 13:46-0400 BSA (Body Surface Area) 2.27 m2 Shobha Huyen [facility] Work Phone: 02-09-2017 13:46-0400 Height 162.56 cm Shobha Huyen [facility] Work Phone: 02-09-2017 13:46-0400 Pulse (Heart Rate) 64 /min Shobha Hayeseden [facility] Work Phone: Comment on above: Pattern: Regular 02-09-2017 13:46-0400 Pulse Oximetry 96 % Adolfo Osborn [facility] Work Phone: Comment on above: Room air 02-09-2017 13:46-0400 Respiratory Rate 17 /min Shobha Huyen [facility] Work Phone: Comment on above: Pattern: Unlabored 02-09-2017 13:46-0400 SaO2% (BldA) [Mass fraction] 96 % Shobha Matson [facility]; [facility] Work Phone: Comment on above: Room air 02-09-2017 13:46-0400 Weight 129.28 kg Adolfo Nitin [facility] Work Phone: 02-02-2017 14:11-0400 BMI (Body Mass Index) 48.92 kg/m2 ARIEL Bradshaw LPN [facility] Work Phone: 02-02-2017 14:11-0400 Body Temperature 97.4 [degF] ARIEL Bradshaw LPN [facility] Work Phone: Comment on above: Method: Temporal 02-02-2017 14:11-0400 Body weight 129.28 kg ARIEL Bradshaw LPN [facility] Work Phone: 02-02-2017 14:11-0400 BP Diastolic 78 mm[Hg] ARIEL Bradshaw LPN [facility] Work Phone: Comment on above: Patient Position: Sitting; Cuff Location : Left Arm; Cuff Size: Large 02-02-2017 14:11-0400 BP Systolic 124 mm[Hg] ARIEL Bradshaw LPN [facility] Work Phone: Comment on above: Patient Position: Sitting; Cuff Location : Left Arm; Cuff Size: Large 02-02-2017 [id number]:110400 BSA (Body Surface Area) 2.27 m2 ARIEL Bradshaw LPN [facility] Work Phone: 02-02-2017 14:11-0400 Height 162.56 cm ARIEL Bradshaw LPN [facility] Work Phone: 02-02-2017 14:11-0400 Pulse (Heart Rate) 64 /min ARIEL Bradshaw LPN [facility] Work Phone: Comment on above: Pattern: Regular 02-02-2017 14:11-0400 Pulse Oximetry 95 % Adolfo Osborn [facility] Work Phone: Comment on above: Room air 02-02-2017 14:11-0400 Respiratory Rate 24 /min ARIEL Bradshaw LPN [facility] Work Phone: Comment on above: Pattern: Unlabored 02-02-2017 14:11-0400 SaO2% (BldA) [Mass fraction] 95 % ARIEL Bradshaw LPN [facility]; [facility] Work Phone: Comment on above: Room air 02-02-2017 14:11-0400 Weight 129.28 kg Adolfo Osborn [facility] Work Phone: 07-24-2016 14:06-0500 BMI (Body Mass Index) 51.49 kg/m2 ARIEL Bradshaw LPN [facility] Work Phone: 07-24-2016 14:06-0500 Body [...] 14:06-0500 Pulse Oximetry 97 % Adolfo Osborn [facility] Work Phone: Comment on above: Room air 07-24-2016 14:06-0500 Respiratory Rate 20 /min ARIEL Bradshaw LPN [facility] Work Phone: Comment on above: Pattern: Unlabored 07-24-2016 14:06-0500 SaO2% (BldA) [Mass fraction] 97 % ARIEL Bradshaw LPN [facility]; [facility] Work Phone: Comment on above: Room air 07-24-2016 14:06-0500 Weight 136.08 kg Adolfo Osborn [facility] Medicine Work Phone: 08-10-2015 08:46-0500 BMI (Body Mass Index) 48.92 kg/m2 Elysia Barnard [facility] Work Phone: 08-10-2015 08:46-0500 Body Temperature 98 [degF] Elysia Barnard [facility] Medicine Work Phone: Comment on above: Method: Oral 08-10-2015 08:46-0500 Body weight 133.36 kg Elysia Barnard [facility] Work Phone: 08-10-2015 08:46-0500 BP Diastolic 72 mm[Hg] Elysia Barnard [facility] Work Phone: Comment on above: Patient Position: Sitting; Cuff Location : Left Arm; Cuff Size: Standard 08-10-2015 08:46-0500 BP Systolic 126 mm[Hg] Elysia Barnard [facility] Medicine Work Phone: Comment on above: Patient Position: Sitting; Cuff Location : Left Arm; Cuff Size: Standard 08-10-2015 08:46-0500 BSA (Body Surface Area) 2.33 m2 Elysia Barnard [facility] Work Phone: 08-10-2015 08:46-0500 Height 165.1 cm Elysia Barnard [facility] Medicine Work Phone: 08-10-2015 08:46-0500 Pulse (Heart Rate) 68 /min Elysia Barnard [facility] Medicine Work Phone: Comment on above: Pattern: Regular 08-10-2015 08:46-0500 Pulse Oximetry 93 % [facility] Work Phone: Comment on above: Room air 08-10-2015 08:46-0500 Respiratory Rate 16 /min Elysia Barnard [facility] Medicine Work Phone: Comment on above: Pattern: Unlabored 08-10-2015 08:46-0500 SaO2% (BldA) [Mass fraction] 93 % Elysia Barnard [facility]; [facility] Work Phone: Comment on above: Room air 08-10-2015 08:46-0500 Weight 133.36 kg Adolfo Osborn [facility] Medicine Work Phone: 05-01-2014 08:50-0400 BMI (Body Mass Index) 48.92 kg/m2 ARIEL Bradshaw LPN [facility] Medicine Work Phone: 05-01-2014 08:50-0400 Body Temperature 97.9 [degF] ARIEL Bradshaw LPN [facility] Medicine Work Phone: Comment on above: Method: Oral 05-01-2014 08:50-0400 Body weight 133.36 kg ARIEL Bradshaw LPN [facility] Medicine Work Phone: 05-01-2014 08:50-0400 BP Diastolic 84 mm[Hg] ARIEL Bradshaw [employer]ING UNIT OPERATOR [facility] Work Phone: Comment on above: Patient Position: Sitting; Cuff Location : Left Arm; Cuff Size: Large 05-01-2014 08:50-0400 BP Systolic 126 mm[Hg] ARIEL Bradshaw LPN [facility] Medicine Work Phone: Comment on above: Patient Position: Sitting; Cuff Location : Left Arm; Cuff Size: Large 05-01-2014 08:50-0400 BSA (Body Surface Area) 2.33 m2 ARIEL Bradshaw LPN [facility] Work Phone: 05-01-2014 08:50-0400 Height 165.1 cm ARIEL Bradshaw [employer]ING UNIT OPERATOR [facility] Medicine Work Phone: 05-01-2014 08:50-0400 Pulse (Heart Rate) 72 /min ARIEL Bradshaw [facility] Internal Medicine Work Phone: Comment on above: Pattern: Regular 05-01-2014 08:50-0400 Respiratory Rate 20 /min ARIEL Bradshaw LPN [facility] Medicine Work Phone: Comment on above: Pattern: Unlabored 05-01-2014 08:50-0400 Weight 133.36 kg Adolfomily Bowersren [facility] Medicine Work Phone: 01-22-2014 12:11-0400 BMI (Body Mass Index) 47.59 kg/m2 ARIEL Bradshaw [facility] Internal Medicine Work Phone: 01-22-2014 12:11-0400 Body Temperature 98.7 [degF] ARIEL Bradshaw [facility] Work Phone: Comment on above: Method: Oral 01-22-2014 12:11-0400 Body weight 129.73 kg ARIEL Bradshaw LPN [facility] Work Phone: 01-22-2014 12:11-0400 BP Diastolic 82 mm[Hg] ARIEL Bradshaw LPN [facility] Work Phone: Comment on above: Patient Position: Sitting; Cuff Location : Left Arm; Cuff Size: Large 01-22-2014 12:11-0400 BP Systolic 126 mm[Hg] ARIEL Bradshwa LPN [facility] Medicine Work Phone: Comment on above: Patient Position: Sitting; Cuff Location : Left Arm; Cuff Size: Large 01-22-2014 12:11-0400 BSA (Body Surface Area) 2.3 m2 ARIEL Bradshaw LPN [facility] Medicine Work Phone: 01-22-2014 12:11-0400 Height 165.1 cm ARIEL Bradshaw [facility] Internal Medicine Work Phone: 01-22-2014 12:11-0400 Pulse (Heart Rate) 70 /min ARIEL Bradshaw LPN [facility] Medicine Work Phone: Comment on above: Pattern: Regular 01-22-2014 12:11-0400 Respiratory Rate 20 /min ARIEL Bradshaw LPN [facility] Work Phone: Comment on above: Pattern: Unlabored 01-22-2014 12:11-0400 Weight 129.73 kg Adolfo Osborn [facility] Work Phone: 02-07-2013 11:49-0400 BMI (Body Mass Index) 48.39 kg/m2 Juan Carlos Barron RN [facility] Internal Medicine Work Phone: 02-07-2013 11:49-0400 Body Temperature 98 [degF] Juan Carlos Barron RN [facility] Medicine Work Phone: Comment on above: Method: Temporal 02-07-2013 11:49-0400 Body weight 131.91 kg Juan Carlos Barron RN [facility] Medicine Work Phone: 02-07-2013 11:49-0400 [...] 11:49-0400 Pulse Oximetry 98 % Adolfo Osborn [facility] Work Phone: Comment on above: Room air 02-07-2013 11:49-0400 SaO2% (BldA) [Mass fraction] 98 % Juan Carlos Barron RN [facility]; [facility] Work Phone: Comment on above: Room air 02-07-2013 11:49-0400 Weight 131.91 kg Adolfo Osborn [facility] Work Phone: 07-11-2012 07:53-0500 BMI (Body Mass Index) 47.26 kg/m2 ARIEL Bradshaw LPN [facility] Work Phone: 07-11-2012 07:53-0500 Body Temperature 98 [degF] ARIEL Bradshaw LPN [facility] Work Phone: Comment on above: Method: Oral 07-11-2012 07:53-0500 Body weight 128.82 kg ARIEL Bradshaw LPN [facility] Work Phone: 07-11-2012 07:53-0500 BP Diastolic 86 mm[Hg] ARIEL Bradshaw LPN [facility] Work Phone: Comment on above: Patient Position: Sitting; Cuff Location : Left Arm; Cuff Size: Large 07-11-2012 07:53-0500 BP Systolic 144 mm[Hg] ARIEL Bradshaw LPN [facility] Work Phone: Comment on above: Patient Position: Sitting; Cuff Location : Left Arm; Cuff Size: Large 07-11-2012 07:53-0500 BSA (Body Surface Area) 2.3 m2 ARIEL Bradshaw LPN [facility] Work Phone: 07-11-2012 07:53-0500 Height 165.1 cm ARIEL Bradshaw LPN [facility] Work Phone: 07-11-2012 07:53-0500 Pulse (Heart Rate) 64 /min ARIEL Bradshaw LPN [facility] Work Phone: Comment on above: Pattern: Regular 07-11-2012 07:53-0500 Respiratory Rate 20 /min ARIEL Bradshaw LPN [facility] Work Phone: Comment on above: Pattern: Unlabored 07-11-2012 07:53-0500 Weight 128.82 kg Adolfo Osborn [facility] Work Phone: 06-13-2012 08:50-0400 BMI (Body Mass Index) 47.93 kg/m2 ARIEL Bradshaw LPN [facility] Work Phone: 06-13-2012 08:50-0400 Body Temperature 98 [degF] ARIEL Bradshaw [facility] Medicine Work Phone: Comment on above: Method: Oral 06-13-2012 08:50-0400 Body weight 130.64 kg ARIEL Bradshaw LPN [facility] Work Phone: 06-13-2012 08:50-0400 BP Diastolic 100 mm[Hg] ARIEL Bradshaw CR[employer]ING UNIT OPERATOR [facility] Medicine Work Phone: Comment on above: Patient Position: Sitting; Cuff Location : Left Arm; Cuff Size: Large 06-13-2012 08:50-0400 BP Systolic 164 mm[Hg] ARIEL Bradshaw CR[employer]ING UNIT OPERATOR [facility] Work Phone: Comment on above: Patient Position: Sitting; Cuff Location : Left Arm; Cuff Size: Large 06-13-2012 08:50-0400 BSA (Body Surface Area) 2.31 m2 ARIEL Bradshaw CR[employer]ING UNIT OPERATOR [facility] Work Phone: 06-13-2012 08:50-0400 Height 165.1 cm ARIEL Bradshaw LPN [facility] Work Phone: 06-13-2012 08:50-0400 Pulse (Heart Rate) 68 /min ARIEL Bradshaw LPN [facility] Work Phone: Comment on above: Pattern: Regular 06-13-2012 08:50-0400 Respiratory Rate 20 /min ARIEL Bradshaw LPN [facility] Work Phone: Comment on above: Pattern: Unlabored 06-13-2012 08:50-0400 Weight 130.64 kg Adolfo Osborn [facility] Work Phone: 02-19-2012 09:32-0400 BMI (Body Mass Index) 48.92 kg/m2 ARIEL Bradshaw LPN [facility] Work Phone: 02-19-2012 09:32-0400 Body Temperature 97.9 [degF] ARIEL Bradshaw LPN [facility] Work Phone: Comment on above: Method: Oral 02-19-2012 09:32-0400 Body weight 133.36 kg ARIEL Bradshaw LPN [facility] Work Phone: 02-19-2012 09:32-0400 BP Diastolic 84 mm[Hg] ARIEL Bradshaw LPN [facility] Work Phone: Comment on above: Patient Position: Sitting; Cuff Location : Left Arm; Cuff Size: Large 02-19-2012 09:32-0400 BP Systolic 136 mm[Hg] ARIEL Bradshaw LPN [facility] Work Phone: Comment on above: Patient Position: Sitting; Cuff Location : Left Arm; Cuff Size: Large 02-19-2012 09:32-0400 BSA (Body Surface Area) 2.33 m2 ARIEL Bradshaw LPN [facility] Work Phone: 02-19-2012 09:32-0400 Height 165.1 cm ARIEL Bradshaw LPN [facility] Work Phone: 02-19-2012 09:32-0400 Pulse (Heart Rate) 76 /min ARIEL Bradshaw LPN [facility] Work Phone: Comment on above: Pattern: Regular 02-19-2012 09:32-0400 Respiratory Rate 20 /min ARIEL Bradshaw LPN [facility] Work Phone: Comment on above: Pattern: Unlabored 02-19-2012 09:32-0400 Weight 133.36 kg Adolfo Osborn [facility] Work Phone: 02-02-2012 10:19-0400 BMI (Body Mass Index) 48.92 kg/m2 Adolfo Osborn [facility] Internal Medicine Work Phone: 02-02-2012 10:19-0400 Body Temperature 98.4 [degF] Adolfo Osborn [facility] Work Phone: Comment on above: Method: Oral 02-02-2012 10:19-0400 Body weight 133.36 kg Adolfo Osborn [facility] Work Phone: 02-02-2012 10:19-0400 BP Diastolic 84 mm[Hg] Adolfo Osborn [facility] Work Phone: Comment on above: Patient Position: Sitting; Cuff Location : Left Arm; Cuff Size: Standard 02-02-2012 10:19-0400 BP Systolic 142 mm[Hg] [facility] Work Phone: Comment on above: Patient Position: Sitting; Cuff Location : Left Arm; Cuff Size: Standard 02-02-2012 10:19-0400 BSA (Body Surface Area) 2.33 m2 Adolfo Osborn [facility] Work Phone: 02-02-2012 10:19-0400 Height 165.1 cm [facility] Work Phone: 02-02-2012 10:19-0400 Pulse (Heart Rate) 78 /min Adolfo Osborn [facility] Work Phone: Comment on above: Pattern: Regular 02-02-2012 10:190400 Weight 133.36 kg Adolfo Osborn [facility] Work Phone: 01-26-2012 08:30-0400 BMI (Body Mass Index) 48.92 kg/m2 Mary Nick RN [facility] Internal Medicine Work Phone: 01-26-2012 08:30-0400 Body [...] 01-26-2012 08:30-0400 BP Systolic 130 mm[Hg] Mary Nikc RN [facility] Work [...] Pattern: Unlabored 01-26-2012 08:30-0400 Weight 133.36 kg Adolfo Bowersren [facility] Work Phone: 11-21-2011 08:11-0400 BMI (Body Mass Index) 49.59 kg/m2 Mary Nick RN [facility] Work Phone: 11-21-2011 08:11-0400 Body Temperature 98.1 [degF] Mayr Nick RN [facility] Work Phone: [...] been running around doing errand s and "knew my b/p would be high" 02-23-2011 12:36-0400 Body Temperature 97.9 [degF] ARIEL Bradshaw LPN [facility] Work Phone: Comment on above: Method: Oral patient been running around doing errands and "knew my b/p would be high" 02-23-2011 12:36-0400 Body weight 132 kg ARIEL Bradshaw LPN [facility] Work Phone: Comment on above: patient been running around doing errand s and "knew my b/p would be high" 02-23-2011 12:36-0400 BP Diastolic 100 mm[Hg] ARIEL Bradshaw LPN [facility] Work Phone: Comment on above: Patient Position: Sitting; Cuff Location : Left Arm; Cuff Size: Large patient been running around doing errands and "knew my b/p would be high" 02-23-2011 12:36-0400 BP Systolic 164 mm[Hg] ARIEL Bradshaw [facility] Medicine Work Phone: Comment on above: Patient Position: Sitting; Cuff Location : Left Arm; Cuff Size: Large patient been running around doing errands and "knew my b/p would be high" 02-23-2011 12:36-0400 BSA (Body Surface Area) 2.32 m2 ARIEL Bradshaw [facility] Medicine Work Phone: Comment on above: patient been running around doing errand s and "knew my b/p would be high" 02-23-2011 12:36-0400 Height 165.1 cm ARIEL Bradshaw [facility] Medicine Work Phone: Comment on above: patient been running around doing errand s and "knew my b/p would be high" 02-23-2011 12:36-0400 Pulse (Heart Rate) 82 /min ARIEL Bradshaw [facility] Medicine Work Phone: Comment on above: Pattern: Regular patient been running around doing errands and "knew my b/p would be high" 02-23-2011 12:36-0400 Respiratory Rate 20 /min ARIEL Bradshaw [facility] Work Phone: Comment on above: Pattern: Unlabored patient been running around doing errands and "knew my b/p would be high" 02-23-2011 12:36-0400 Weight 132 kg Adolfo Osborn [facility] Work Phone: Comment on above: patient been running around doing errand s and "knew my b/p would be high" 01-16-2011 09:15-0400 BMI (Body Mass Index) 49.59 kg/m2 Adolfo Osborn [facility] Internal Medicine Work Phone: 01-16-2011 09:15-0400 Body Temperature 97.2 [degF] Adolfo Osborn [facility] Work Phone: Comment on above: Method: Oral 01-16-2011 09:15-0400 Body weight 135.17 kg [facility] Work Phone: 01-16-2011 09:15-0400 BP Diastolic 90 mm[Hg] [facility] Work Phone: Comment on above: Patient Position: Sitting; Cuff Location : Left Arm; Cuff Size: Standard 01-16-2011 09:15-0400 BP Systolic 154 mm[Hg] [facility] Work Phone: Comment on above: Patient Position: Sitting; Cuff Location : Left Arm; Cuff Size: Standard 01-16-2011 09:15-0400 BSA (Body Surface Area) 2.34 m2 [facility] Work Phone: 01-16-2011 09:15-0400 Height 165.1 cm [facility] Work Phone: 01-16-2011 09:15-0400 Pulse (Heart Rate) 78 /min [facility] Work Phone: Comment on above: Pattern: Regular 01-16-2011 09:15-0400 Respiratory Rate 18 /min [facility] Work Phone: Comment on above: Pattern: Unlabored 01-16-2011 09:15-0400 Weight 135.17 kg [facility] Medicine Work Phone: 02-10-2010 11:04-0400 BP Diastolic 86 mm[Hg] [facility] Medicine Work Phone: Comment on above: Patient Position: Sitting; Cuff Location : Left Arm; Cuff Size: Standard 02-10-2010 11:04-0400 BP Systolic 138 mm[Hg] [facility] Work Phone: Comment on above: Patient Position: Sitting; Cuff Location : Left Arm; Cuff Size: Standard 02-10-2010 11:04-0400 Pulse (Heart Rate) 70 /min [facility] Work Phone: Comment on above: Pattern: Regular 02-10-2010 11:04-0400 Respiratory Rate 18 /min Gloria Ashford [facility] Work Phone: Comment on above: Pattern: Unlabored 01-04-2010 08:57-0400 Body weight 135.17 kg ARIEL Bradshaw [facility] Medicine Work Phone: 01-04-2010 08:57-0400 BP Diastolic 84 mm[Hg] ARIEL Bradshaw [facility] Medicine Work Phone: Comment on above: Patient Position: Sitting; Cuff Location : Left Arm; Cuff Size: Large 01-04-2010 08:57-0400 BP Systolic 126 mm[Hg] ARIEL Bradshaw [facility] Work Phone: Comment on above: Patient Position: Sitting; Cuff Location : Left Arm; Cuff Size: Large 01-04-2010 08:57-0400 Pulse (Heart Rate) 74 /min ARIEL Bradshaw [facility] Medicine Work Phone: Comment on above: Pattern: Regular 01-04-2010 08:57-0400 Respiratory Rate 20 /min ARIEL Bradshaw [facility] Medicine Work Phone: Comment on above: Pattern: Unlabored 01-04-2010 08:57-0400 Weight 135.17 kg Adolfo Nitin [facility] Work Phone: 06-23-2009 08:41-0400 Body Temperature 98.3 [degF] [facility] Work Phone: Comment on above: Method: Oral 06-23-2009 08:41-0400 Body weight 134.27 kg [facility] Work Phone: 06-23-2009 08:41-0400 BP Diastolic 82 mm[Hg] [facility] Work Phone: Comment on above: Patient Position: Sitting; Cuff Location : Left Arm; Cuff Size: Large 06-23-2009 08:41-0400 BP Systolic 138 mm[Hg] [facility] Work Phone: Comment on above: Patient Position: Sitting; Cuff Location : Left Arm; Cuff Size: Large 06-23-2009 08:41-0400 Head Circumference 0 cm [facility] Work Phone: 06-23-2009 08:41-0400 Head Occipital-frontal circumference 0 cm [facility]; [facility] Work Phone: 06-23-2009 08:41-0400 Height 0 cm [facility] Work Phone: 06-23-2009 08:41-0400 Pulse (Heart Rate) 82 /min [facility] Work Phone: Comment on above: Pattern: Regular 06-23-2009 08:41-0400 Respiratory Rate 18 /min [facility] Work Phone: Comment on above: Pattern: Unlabored 06-23-2009 08:41-0400 Weight 134.27 kg [facility] Work Phone: 01-05-2009 10:58-0400 Body weight 137.44 kg ARIEL Bradshaw [facility] Medicine Work Phone: 01-05-2009 10:58-0400 BP Diastolic 84 mm[Hg] ARIEL Bradshaw [facility] Work Phone: Comment on above: Patient Position: Sitting; Cuff Location : Left Arm; Cuff Size: Large 01-05-2009 10:58-0400 BP Systolic 144 mm[Hg] ARIEL Bradshaw [facility] Work Phone: Comment on above: Patient Position: Sitting; Cuff Location : Left Arm; Cuff Size: Large 01-05-2009 10:58-0400 Head Circumference 0 cm [facility] Work Phone: 01-05-2009 10:58-0400 Head Occipital-frontal circumference 0 cm ARIEL Bradshaw LPN [facility]; [facility] Work Phone: 01-05-2009 10:58-0400 Height 0 cm ARIEL Bradshaw CR[employer]ING UNIT OPERATOR [facility] Work Phone: 01-05-2009 10:58-0400 Pulse (Heart Rate) 74 /min ARIEL Bradshaw [employer]ING UNIT OPERATOR [facility] Work Phone: Comment on above: Pattern: Regular 01-05-2009 10:58-0400 Respiratory Rate 18 /min ARIEL Bradshaw LPN [facility] Work Phone: Comment on above: Pattern: Unlabored 01-05-2009 10:58-0400 Weight 137.44 kg Adolfo Boneiani [facility] Work Phone: 10-09-2008 13:39-0500 Body weight 137.21 kg Adolfo Bonezzi [facility] Work Phone: 10-09-2008 13:39-0500 BP Diastolic 80 mm[Hg] Adolfo Bonezzi [facility] Work Phone: Comment on above: Patient Position: Sitting; Cuff Location : Right Arm; Cuff Size: Standard 10-09-2008 13:39-0500 BP Systolic 152 mm[Hg] Adolfo Boneiani [facility] Work Phone: Comment on above: Patient Position: Sitting; Cuff Location : Right Arm; Cuff Size: Standard 10-09-2008 13:39-0500 Head Circumference 0 cm Adolfo Boneiani [facility] Work Phone: 10-09-2008 13:39-0500 Head Occipital-frontal circumference 0 cm Adolfo Osborn [place] Work Phone: [facility]; [facility] Work Phone: 10-09-2008 13:39-0500 Height 0 cm Adolfo Boneiani [facility] [...] 08-08-2007 13:10-0500 Head Circumference 0 cm [facility] Work Phone: 08-08-2007 13:10-0500 [...] Unlabored 08-08-2007 13:10-0500 Weight 132.45 kg [facility]olfo [facility]ersR[facility] Work Phone: 01-30-2007 09:11-0400 Body Temperature 97.7 [degF] ARIEL Bradshaw LPN [facility] Work Phone: Comment on above: Method: Oral 01-30-2007 09:11-0400 Body weight 135.17 kg ARIEL Bradshaw LPN [facility] Work Phone: 01-30-2007 09:11-0400 BP Diastolic 80 mm[Hg] ARIEL Bradshaw CR[employer]ING UNIT OPERATOR [facility] Work Phone: Comment on above: Patient Position: Sitting; Cuff Location : Left Arm; Cuff Size: Standard 01-30-2007 09:11-0400 BP Systolic 124 mm[Hg] ARIEL Bradshaw LPN [facility] Work Phone: Comment on above: Patient Position: Sitting; Cuff Location : Left Arm; Cuff Size: Standard 01-30-2007 09:11-0400 Head Circumference 0 cm Adolfo Osborn [facility] Work Phone: 01-30-2007 09:11-0400 Head Occipital-frontal circumference 0 cm ARIEL Bradshaw CR[employer]ING UNIT OPERATOR [facility]; [facility] Work Phone: 01-30-2007 09:11-0400 Height 0 cm ARIEL Bradshaw CR[employer]ING UNIT OPERATOR [facility] Work Phone: 01-30-2007 09:11-0400 Pulse (Heart Rate) 74 /min ARIEL Bradshaw [employer]ING UNIT OPERATOR [facility] Work Phone: Comment on above: Pattern: Regular 01-30-2007 09:11-0400 Respiratory Rate 20 /min ARIEL Bradshaw CR[employer]ING UNIT OPERATOR [facility] Work Phone: Comment on above: Pattern: Unlabored 01-30-2007 09:11-0400 Weight 135.17 kg Adolfo Nitin [facility] Work Phone: Encounters Encounter Date Encounter Type Care Provider Facility Start: 07-09-2025 ambulatory Adolfo Osborn Facility:[facility] Start: 06-12-2025 End: 06-12-[address] Alex Finley MD -[facility] Work Phone: Start: 06-12-2025 End: 06-12-[address] Adolfo Osborn MD Work Phone: -[facility] Start: 05-22-2025 End: 05-22-[address] Adolfo Osborn MD Work Phone: -[facility] Start: 05-22-2025 End: 05-22-[address] Adolfo Osborn MD -[facility] Work Phone: Start: 05-22-2025 End: 05-22-2025 ambulatory Adolfo Osborn Facility: Start: 05-08-2025 Non-patient / Non-visit Dr. Deb stone MD -[facility] Start: 05-08-2025 End: 05-08-[address] Adolfo Osborn MD Work Phone: -Cardiovascular Services Start: 05-08-2025 End: 05-08-[address] Adolfo Osborn MD -Cardiovascular Services Work Phone: Start: 05-08-2025 End: 05-08-2025 ambulatory Adolfo Osborn Facility: Start: 04-20-2025 End: 04-20-[address] Adolfo Osborn MD Work Phone: -Outpatient Breast Imaging Start: 04-20-2025 End: 04-20-[address] Adolfo Osborn MD -Outpatient Breast Imaging Work Phone: Start: 04-20-2025 End: 04-20-2025 ambulatory Adolfo Osborn Facility: Start: 03-04-2025 End: 05-04-2025 Orders Only Deja Nunez APRN.ESTIMATOR AND DRAFTER SUPERVISOR Work Phone: Gynecology Start: 03-03-2025 End: 03-03-2025 Follow-up encounter Deja Nunez APRN.ESTIMATOR AND DRAFTER SUPERVISOR Work Phone: Gynecology Comment on above: Encounter for follow -up surveillance of endometrial cancer (Primary Dx); History of endometrial cancer; Vaginal itching Start: 03-03-2025 End: 03-03-2025 Patient encounter procedure Deja Nunez APRN.ESTIMATOR AND DRAFTER SUPERVISOR Work Phone: Gynecology Start: 03-03-2025 End: 03-03-2025 ambulatory DEJA NUNEZ Facility:[facility] Start: 09-02-2024 End: 09-02-2024 Patient encounter procedure Deja Nunez PROCEDURES TECH.ESTIMATOR AND DRAFTER SUPERVISOR Work Phone: Gynecology Start: 09-02-2024 End: 09-02-2024 ambulatory Deja Nunez PROCEDURES TECH.ESTIMATOR AND DRAFTER SUPERVISOR Work Phone: Gynecology Comment on above: Post-operative state (Primary Dx) Start: 08-14-2024 End: 08-14-2024 Patient encounter procedure Sera eRddy MD Work Phone: Gynecology Start: 08-14-2024 End: 08-14-2024 ambulatory Sera Reddy MD Work Phone: Gynecology Comment on above: Post-operative state (Primary Dx) Start: 07-31-2024 End: 07-31-2024 Telephone encounter Deja Nunez PROCEDURES TECH.ESTIMATOR AND DRAFTER SUPERVISOR Work Phone: Gynecology Comment on above: Results Start: 07-28-2024 End: 07-28-2024 Telemedicine consultation with patient Deja Nunez APRN.ESTIMATOR AND DRAFTER SUPERVISOR Work Phone: Gynecology Start: 07-28-2024 End: 07-28-2024 ambulatory Deja Nunez PROCEDURES TECH.ESTIMATOR AND DRAFTER SUPERVISOR Work Phone: Gynecology Comment on above: Post-operative state (Primary Dx) Start: 07-21-2024 End: 07-21-2024 Nursing evaluation of patient and report Margarita Dunn Research Coordinator Work Phone: Gynecology Oncology Comment on above: Endometrial cancer ( HCC) (Primary Dx) Start: 07-21-2024 End: 07-21-2024 ambulatory SERA REDDY Facility:[facility] Start: 07-18-2024 End: 07-18-2024 ambulatory ADOLFO OSBORN Facility:[facility] Start: 07-17-2024 End: 07-17-2024 Patient encounter [facility] Start: 07-17-2024 End: 07-17-2024 Subsequent hospital visit by physician Xr [facility] Radiology Comment on above: Pre-op testing [Z01. 818] Start: 07-17-2024 Encounter for other preprocedural examination [facility] Start: 07-17-2024 End: 07-17-2024 Admission to [place] [id number] Work Phone: Pre Anesthesia Start: 07-17-2024 End: 07-17-2024 Anesthesia consultation [place] [address] Work Phone: Pre Anesthesia Comment on above: Pre-operative examin ation (Primary Dx); Incomplete left bundle branch block (LBBB); Essential hypertension, benign; Bilateral leg edema; MORGAN (obstructive sleep apnea); Morbid obesity (HCC) Start: 07-17-2024 End: 07-17-2024 Preprocedural examination done [place] [address] Work Phone: [facility] Start: 07-17-2024 End: 07-17-2024 ambulatory [facility] Facility:[facility] Start: 07-16-2024 End: 07-16-2024 Telephone encounter Sera Reddy MD Work Phone: [facility] Comment on above: Schedule Surgery; Ap pointment Confirmation Start: 07-15-2024 End: 07-15-2024 ambulatory Patent Lawyer Onc Nurse Ca 4 Work Phone: Gynecology Oncology Comment on above: Educational circumst ances (Primary Dx) Start: 07-15-2024 End: 07-15-2024 Telemedicine consultation with patient Patent Lawyer Onc Nurse Ca 4 Work Phone: Gynecology Oncology Start: 07-10-2024 End: 07-10-2024 Patient encounter status Deja Nunez APRN.ESTIMATOR AND DRAFTER SUPERVISOR Work Phone: [facility] Work Phone: Start: 07-10-2024 End: 07-10-2024 Preprocedural examination done Deja Nunez APRN.ESTIMATOR AND DRAFTER SUPERVISOR Work Phone: [facility] Start: 07-10-2024 End: 07-10-2024 Patient encounter procedure Sera Reddy MD Work Phone: Gynecology Comment on above: Research (IRB#: [id number]/ ECHO Clinical Trial: Screening/ Enrollment) Start: 07-10-2024 End: 07-10-2024 ambulatory Sera Reddy MD Work Phone: Gynecology Comment on above: Endometrial cancer ( HCC) (Primary Dx); Endometrial adenocarcinoma (HCC) Start: 06-19-2024 End: 06-19-2024 ambulatory ARLETH LAU Facility:[facility] Start: 06-19-2024 End: 06-19-2024 Patient encounter procedure Arleth Lau PROCEDURES TECH.ESTIMATOR AND DRAFTER SUPERVISOR Work Phone: Gynecology Comment on above: Thickened endometriu m (Primary Dx); Screening for malignant neoplasm of cervix Start: 05-21-2024 End: 05-21-2024 Telephone encounter Hunter Her MD Work Phone: OB/Gynecology Comment on above: Results Start: 05-15-2024 End: 05-15-2024 ambulatory HUNTER HER OB/Gynecology Start: 05-15-2024 End: 05-15-2024 Patient encounter procedure [employer] Branch Store Manager [employer] OB/Gynecology Start: 05-13-2024 End: 05-13-2024 Telephone encounter Hunter Her MD Work Phone: OB/Gynecology Comment on above: Received Outside Med ical Records Start: 05-08-2024 End: 05-08-2024 ambulatory HUNTER HER Facility:[facility] Start: 05-08-2024 End: 05-08-2024 Patient encounter procedure Hunter Her MD Work Phone: OB/Gynecology Comment on above: Encounter for screen ing for malignant neoplasm of cervix (Primary Dx); Postmenopausal bleeding Start: 03-08-2023 End: 03-08-2023 Patient encounter procedure Adolfo Osborn MD Work Phone: [facility] Start: 09-04-2022 ambulatory Adolfo Osborn MD [facility] Internal Med Start: 08-16-2022 End: 11-07-2022 Phone Encounter Adolfo Osborn MD Work Phone: [facility] Start: 07-25-2022 End: 07-26-2022 Office outpatient visit 40 minutes Adolfo Osborn MD Work Phone: [facility] Start: 07-25-2022 End: 07-26-2022 Patient encounter procedure Adolfo Osborn MD Work Phone: [facility]; [facility] Work Phone: Comment on above: Dr. Lori stewart18 and mammogram 2013, colonoscopy 07/08 polyp recheck 5 year, Start: 04-06-2022 End: 04-06-2022 Emergency department patient visit Juan Carlos Rainey [facility] Start: 11-22-2021 Image Encounter Adolfo Osborn Work Phone: zz DO NOT USE - Softlab Only Start: 11-07-2021 End: 11-07-2021 Office outpatient visit 40 minutes Adolfo Osborn MD Work Phone: [facility] Start: 11-07-2021 End: 11-07-2021 Patient encounter procedure Adolfo Osborn MD Work Phone: [facility]; [facility] Work Phone: Comment on above: Dr. Lori stewart18 and mammogram 2013, colonoscopy 07/08 polyp recheck 5 year, Start: 04-15-2021 End: 05-01-2021 Office outpatient visit 25 minutes Adolfo Osborn MD Work Phone: [facility] Start: 04-12-2021 End: 04-12-2021 Emergency department patient visit Manny Wing [facility] Start: 01-18-2021 End: 01-19-2021 Emergency department patient visit Mendyyoselin Salazar [facility] Emergency 05 Start: 09-17-2020 End: 09-17-2020 Office outpatient visit 25 minutes Adolfo Osborn [facility] Start: 09-17-2020 End: 09-17-2020 Patient encounter procedure Adolfo Osborn MD Work Phone: [facility] Start: 10-16-2019 End: 10-16-2019 Office outpatient visit 40 minutes Adolfo Osborn [facility] Start: 10-16-2019 End: 10-16-2019 Patient encounter procedure Adolfo Osborn MD Work Phone: [facility] Start: 10-02-2019 End: 10-02-2019 Phone Encounter Adolfo Osborn [facility] Start: 04-14-2019 End: 04-29-2019 Office outpatient visit 40 minutes Adolfo Osborn [facility] Start: 04-14-2019 End: 04-29-2019 Patient encounter procedure Adolfo Osborn MD Work Phone: [facility] Start: 04-14-2019 [facility] Start: 12-02-2018 End: 12-02-2018 Lab Order Adolfo Osborn [facility] Start: 09-03-2018 End: 09-03-2018 Office [...] Start: 08-30-2017 End: 08-30-2017 Phone Encounter Adolfo Obsorn [facility] Start: 08-23-2017 End: 08-23-2017 Lab Order Adolfo Osborn [facility] Start: 04-05-2017 End: 04-05-2017 Phone Encounter Adolfo Osborn [facility] Start: 02-09-2017 End: 02-11-2017 Office outpatient visit 25 minutes Adolfo Osborn [facility] Start: 02-02-2017 End: 02-02-2017 Office outpatient new 10 minutes Adolfo Osborn [facility] Start: 02-02-2017 End: 02-02-2017 Patient encounter procedure Adolfo Osborn MD Work Phone: [facility] Start: 12-26-2016 End: 12-26-2016 Lab Order Adolfo Osborn [facility] Start: 07-24-2016 End: 07-27-2016 Patient encounter procedure Adolfo Osborn MD Work Phone: [facility] Start: 07-24-2016 End: 07-27-2016 Periodic preventive med est patient 40-64yrs Adolfo Osborn [facility] Start: 08-12-2015 End: 08-12-2015 Phone Encounter Aodlfo Osborn [facility] Start: 08-10-2015 End: 08-10-2015 Office outpatient visit 25 minutes Adolfo Osborn [facility] Start: 08-10-2015 End: 08-10-2015 Patient encounter status Adolfo Osborn MD Work Phone: [facility] Start: 02-09-2015 End: 02-09-2015 Lab Order Adolfo Osborn [facility] Start: 05-01-2014 End: 05-01-2014 Office [...] End: 02-12-2013 Phone Encounter Adolfo Osborn [facility] Start: 02-07-2013 End: 02-13-2013 Patient encounter procedure Adolfo Osborn [facility] Start: 02-07-2013 End: 02-13-2013 Patient encounter status Adolfo Osborn MD Work Phone: [facility] Start: 07-15-2012 End: 07-15-2012 Annotation/Addendum Adolfo Osborn [facility] Start: 07-11-2012 End: 07-11-2012 Patient encounter procedure Adolfo Osborn [facility] Start: 06-13-2012 End: 06-13-2012 Patient encounter procedure Adolfo Osborn [facility] Start: 06-13-2012 End: 06-13-2012 Patient encounter status Adolfo Osborn MD Work Phone: [facility] Start: 02-19-2012 End: 02-19-2012 Annotation/Addendum Adolfo Osborn [facility] Start: 02-19-2012 End: 02-19-2012 Patient encounter procedure Adolfo Osborn [facility] Start: 02-19-2012 End: 02-19-2012 Patient encounter status Adolfo Osborn MD Work Phone: [facility] Start: 02-02-2012 End: 02-02-2012 Office outpatient visit 25 minutes Adolfo Osborn [facility] Internal Medicine Start: 01-26-2012 End: 01-26-2012 Office outpatient visit 25 minutes Adolfo Osborn [facility] Start: 01-26-2012 End: 01-26-2012 Preprocedural examination done Adolfo Osborn MD Work Phone: [facility] Start: 12-29-2011 End: 12-29-2011 Phone Encounter Adolfo Osborn [facility] Start: 12-07-2011 End: 12-07-2011 Phone Encounter Adolfo Osborn [facility] Start: 11-21-2011 End: 11-21-2011 Patient [...] 06-23-2009 End: 06-23-2009 Patient encounter procedure Adolfo Bowersren [facility] Start: 01-05-2009 End: 01-05-2009 Patient encounter procedure Adolfo Bowersren [facility] Start: 01-05-2009 End: 01-05-2009 Patient encounter status Adolfo Osborn MD Work Phone: [facility] Start: 10-09-2008 End: 10-09-2008 Patient encounter procedure Adolfo Nitin [facility] Start: 10-09-2008 End: 10-09-2008 Patient encounter status Adolfo Osborn MD Work Phone: [facility] Start: 08-08-2007 End: 08-08-2007 Patient encounter procedure Adolfomily Bowersren [facility] Start: 01-30-2007 End: 01-30-2007 Patient encounter procedure Adolfomily Bowersren [facility] Start: 11-20-2006 End: 11-20-2006 Historical Summary Adolfo Robinsonren [facility] Start: 11-05-2006 End: 11-05-2006 Historical Summary Adolfomily Bowersren [facility] Start: 11-05-2006 End: 11-05-2006 Refill Request Adolfo Nitin [facility] Patient encounter procedure ARIEL Bradshaw LPN [facility]; [facility] Work Phone: Comment on above: Dr. Sandoval pap1-18 and mammogram 2013, colonoscopy 11/12 polyp recheck 5 year, Patient encounter status ARIEL MCCLOUD [facility]; [facility] Work Phone: Comment on above: [facility] 1-18 Dr. Cain richards pap 1-18, colonoscopy 11/12 polyp recheck 5 years needs to set up for scope and pap. she will get BD and ammo soone Patient encounter status Dayanna Menchaca CRACKING UNIT OPERATOR [facility]; [facility] Work Phone: Comment on above: [facility] 1-18 Dr. Cain richards pap 1-18, colonoscopy 11/12 polyp recheck 5 years needs to set up for scope and pap. she will get BD and ammo soone Patient encounter status Wanda Puente LP N [facility]; [facility] Work Phone: Comment on above: [facility] 09-13 Dr. Barlow er pap 09-13, colonoscopy 07/08 polyp recheck 5 years needs to set up for scope and pap. she will get BD and ammo soone End: 05-01-2014 Preprocedural examination done Paper Baler [facility]; [facility] Work Phone: Procedures Date Procedure Procedure Detail Performing Clinician Start: 05-22-2025 CT angiography of chest with contrast Dr. Adolfo Osborn MD Work Phone: Start: 04-20-2025 Screening mammography Cindy Osborn MD Work Phone: Start: 07-17-2024 Radiologic exam ches t 2 views Deja Nunez APRN.ESTIMATOR AND DRAFTER SUPERVISOR Work Phone: Start: 07-17-2024 Antibody screen ADOLFO GODOY Comment on above: Order Comment: Speci men Type: BLOOD SPECIMEN Ordering Facility: [facility] Address: [address] [place] [address] Performed By: #### T [id number], [id number] #### [facility] CLIA [id number] [address] [place] [address] [place] Start: 06-19-2024 ENDOMETRIAL BIOPSY PROCEDURE (W NOTE) Arleth Lau APRN.ESTIMATOR AND DRAFTER SUPERVISOR Work Phone: Start: 05-15-2024 Us pelvic nonobstetr ic real-time image complete Hunter Her MD Work Phone: Start: 04-15-2021 End: 04-15-2021 Venous Duplex US, Unilateral Comments: See Note; NOTES: [facility] Cardiovascular Services [address] [facility] [address] Venous Duplex US, Unilateral 04/15/21 1442 MR#: [id number] Acct: [id number] Name: SANTA RAHMAN Rep #: [id number] : 1955 65 From: Lauri Damico MD [...] MD Date Dictated: 04/15/21 1442 Date Transcribed: 04/15/211655 Poundmaster: Signed Adolfo Osborn MD Work Phone: Start: 09-17-2020 End: 09-17-2020 Chest PA and Lateral Comments: See Note; NOTES: [facility] Radiology [address] [place] [address] Chest PA and Lateral MR#: [id number] Acct: [id number] Name: SANTA RAHMAN Rep #: [id number] : 1955 F 64 From: Porter abdi MD PCP: Dr. Adolfo Osborn MD Status: DEP AMB Study: Chest PA and Lateral Date of Exam: 09/17/20 Exam# [id number] Ordering Dr: Adolfo Osborn MD STUDY: X-RAY [...] support , CC: Dr. Adolfo Osborn MD Poundmaster: Signed Adolfo Osborn Work Phone: Start: 10-15-2017 End: 10-15-2017 TXT - Blood Flow Screening Comments: See Note; NOTES: [facility] Cardiovascular Services [address] [place] [address] 10/12/17 0819 MR#: [id number] Acct: [id number] Name: SANTA RAHMAN Rep #: [id number] : 1955 61 From: Spike Mclean MD Attending Dr: Adolfo Osborn MD Status: REG REF Ordering Dr: Date: 10/15/17 Location: [facility] Sex: F C Admitted: Reason For Study: [...] Osborn M.D Performed By: Mitali Miranda RVT 10/15/17 0739 Date Spike Mclean MD CC: Adolfo Osborn MD Date Dictated: 10/12/17818 Date Transcribed: 10/15/17 0739 Poundmaster: Signed Adolfo Osborn Start: 02-09-2017 End: 02-09-2017 Brain/Head W/WO Contrast Comments: See Note; NOTES: [facility] Imaging Services [address] [place] [address] [place] 4d Brain/Head W/WO Contrast MR#: [id number] Acct: [id number] Name: SANTA RAHMAN Rep #: [id number] : 1955 F 61 From: Shobha Torrez MD PCP: Adolfo Osborn MD Status: REG CLI Study: Brain/Head W/WO Contrast Date of Exam: 02/09/17 Exam# [id number] Ordering Dr: Margarita Portillo DO STUDY: CT [...] Shobha Torrez MD at 16:36 EDT Tel [phone], Service support , CC: Adolfo Osborn MD; Margarita Protillo DO Poundmaster: Signed Margarita Portillo Work Phone: Start: 02-09-2017 End: 02-09-2017 L/S Spine Min 4 Views Comments: See Note; NOTES: [facility] Imaging Services [address] [place] [address] Verdana 4d L/S Spine Min 4 Views MR#: [id number] Acct: [id number] Name: SANTA RAHMAN Rep #: [id number] : 1955 F 61 From: Shobha Torrez MD PCP: Adolfo Osborn MD Status: REG CLI Study: L/S Spine Min 4 Views Date of Exam: 02/09/17 Exam# [id number] Ordering Dr: Margarita Portillo DO STUDY: X-RAY [...] Shobha Torrez MD at 17:17 EDT Tel [phone], Service support , CC: Adolfo Osborn MD; Margarita Portillo DO Poundmaster: Signed Margarita Portillo Work Phone: Start: 08-10-2015 End: 08-10-2015 Ecg routine ecg w/least 12 lds w/i&r [MEASUREMENTS ANALYSIS] Date of Test: 08/10/2015 08:55:37; Heart Rate: 61; [place] Interval: 222; QRS: 110; QT Interval: 420; Corrected QT Interval (QTc): 421; P Wave [place]: 35; QRS Wave [place]: 2; T Wave [place]: 15; Blood Pressure: 126/72 [ECG DIAGNOSTIC STATEMENTS] Date of Test: 08/10/2015 08:55:37; Summary: Sinus Rhythm -First degree A-V block Sukh = 222-Nonspecific QRS widening. BORDERLINE Adolfo Osborn Work Phone: Start: 01-22-2014 End: 01-22-2014 Ecg routine ecg w/least 12 lds w/i&r [MEASUREMENTS ANALYSIS] Date of Test: 01/22/2014 12:57:53; Heart Rate: 57; [place] Interval: 224; QRS: 111; QT Interval: 436; Corrected QT Interval (QTc): 431; P Wave [place]: 35; QRS Wave [place]: 2; T Wave [place]: -1; Blood Pressure: 126/82 [ECG DIAGNOSTIC STATEMENTS] Date of Test: 01/22/2014 12:57:53; Summary: Sinus Bradycardia -First degree A-V block Sukh = 224BORDERLINE RHYTHM Adolfo Osborn Work Phone: Comment on above: see scanned document of test done to see results reviewed today with patient D/C 04/04 ARIEL Bradshaw D/C 04/04 ARIEL Bradshaw D/C 04/04 ARIEL Bradshaw D/C 04/04 Wanda Puente D/C 04/04 ARIEL Bradshaw LPN D/C 04/04 Dayanna Menchaca LP N D/C 04/04 Wanda MCCLOUD Plan of Treatment Date Care Activity Detail Author Start: 07-17-2027 Diabetes Screening Diabetes Screenin g [facility] Start: 09-03-2025 End: 09-03-2025 Follow-up encounter Gynecology Comment on above: 6 MONTH FOLLOW UP Start: 06-12-2025 End: 06-12-2025 Evaluation of diagnostic study results Start: 04-27-2025 Influenza vaccination Influenza Vacc ine (#1) [facility] Start: 03-03-2025 End: 03-03-2025 Follow-up encounter 03/03/2025 10:30 AM EDT Visit (SP) Office Gynecology [address] [place] [address] Deja Nunez APRN.ESTIMATOR AND DRAFTER SUPERVISOR [address] [place] [address] 6 MONTH FOLLOW UP Gynecology Comment on above: 6 MONTH FOLLOW UP Start: 09-02-2024 End: 09-02-2024 ambulatory 09/02/2024 11:30 AM EST Visit (SP) Office Gynecology [address] [place] [address] Deja Nunez APRN.ESTIMATOR AND DRAFTER SUPERVISOR [address] [place] [address] POST OP Gynecology Comment on above: POST OP Start: 08-27-2024 Advance Directive Discussion Advance Directive Discussion [facility] Start: 08-14-2024 End: 08-14-2024 ambulatory 08/14/2024 10:45 AM EST Visit (SP) Office Gynecology [address] [place] [address] Sera Reddy MD [address] [place] [address] POST OP Gynecology Comment on above: POST OP Start: 07-21-2024 End: 07-21-2024 Admission to same day surgery center 07/21/2024 7:30 AM EST - 07/21/2024 11:00 AM EST Surgery Admitting [address] [place] [address] Sera Reddy MD [address] [place] [address] LAPAROSCOPIC HYSTERECTOMY TOTAL FOR UTERUS 250 G OR LESS W/REMOVAL TUBE(S) AND/OR OVARY(S) Admitting Comment on above: LAPAROSCOPIC HYSTERE CTOMY TOTAL FOR UTERUS 250 G OR LESS W/REMOVAL TUBE(S) AND/OR OVARY(S) Start: 07-21-2024 Subsequent hospital visit by physician 07/21/2024 7:30 AM EST Hospital Encounter Admitting [address] [place] [address] Sera Reddy MD [address] [place] [address] Endometrial cancer (HCC) [C54.1] Admitting Comment on above: Endometrial cancer ( HCC) [C54.1] Start: 07-21-2024 End: 07-21-2024 Intraop sentinel lymph node id w/dye injection [facility] Start: 07-21-2024 End: 07-21-2024 Laps total hysterect 250 gm/< w/rmvl tube/ovary [facility] Start: 07-17-2024 End: 07-17-2024 ambulatory 07/17/2024 1:45 PM EST Results Only [facility] Draw Station [address] [place] [address] PRE OP [facility] Draw Station Comment on above: PRE OP Start: 07-17-2024 End: 07-17-2024 Patient encounter procedure Radiology Comment on above: PRE OP Start: 07-17-2024 End: 07-17-2024 Anesthesia consultation 07/17/2024 12:40 PM EST PAT Pre Anesthesia [address] [place] [address] 1, Pacc [place] [address] [place] [address] PRE OP~ PLEASE COMPLETE EKG Pre Anesthesia Comment on above: PRE OP~ PLEASE COMPL ETE EKG Start: 07-15-2024 End: 07-15-2024 ambulatory 07/15/2024 10:30 AM EST [facility] Gynecology Oncology [address] [place] [address] 4, [place] [address] [place] [id number] PRE OP TEACHING Gynecology Oncology Comment on above: PRE OP TEACHING Start: 07-10-2024 End: 10-09-2024 CBC panel - Blood by Automated count COMPLETE BLOOD COUNT Lab Routine Pre-op testing Expected: 07/10/2024, Expires: 10/09/2024 [facility] Work Phone: Comment on above: Expected: 07/10/2024 , Expires: 10/09/2024 Start: 07-10-2024 End: 10-09-2024 Comprehensive metabolic 2000 panel - Serum or Plasma COMPREHENSIVE METABOLIC PANEL Lab Routine Pre-op testing Expected: 07/10/2024, Expires: 10/09/2024 [facility] Comment on above: Expected: 07/10/2024 , Expires: 10/09/2024 Start: 07-10-2024 End: 10-09-2024 TYPE AND SCREEN,30 DAY TYPE AND SCREEN,30 DAY Blood Bank Routine Pre-op testing Expected: 07/10/2024, Expires: 10/09/2024 [facility] Comment on above: Expected: 07/10/2024 , Expires: 10/09/2024 Start: 07-08-2024 End: 10-07-2024 Cancer Ag 125 [Units/volume] in Serum or Plasma CA 125 Lab Routine Endometrial cancer (HCC) Expected: 07/08/2024, Expires: 10/07/2024 [facility] Work Phone: Comment on above: Expected: 07/08/2024 , Expires: 10/07/2024 Start: 07-07-2024 End: 07-07-2024 ambulatory 07/07/2024 12:30 PM [facility] Gynecology [address] [place] [address] Arleth Lau, PROCEDURES TECH.ESTIMATOR AND DRAFTER SUPERVISOR [address] [place] [address] 2 WEEKS VV Gynecology Comment on above: 2 WEEKS VV Start: 05-15-2024 End: 05-15-2024 ambulatory 05/15/2024 10:30 AM EDT Procedure OB/Gynecology [address] [place] [address] Postmenopausal bleeding [N95.0] OB/Gynecology Comment on above: Postmenopausal bleed ing [N95.0] Start: 05-13-2024 End: 05-13-2024 ambulatory 05/13/2024 9:00 AM EDT Procedure OB/Gynecology [address] [place] [address] Postmenopausal bleeding [N95.0] OB/Gynecology Comment on above: Postmenopausal bleed ing [N95.0] Start: 05-08-2024 End: 05-08-2025 US Pelvis PELVIC US [facility] Anc Imaging Routine Postmenopausal bleeding Expected: 05/08/2024, Expires: 05/08/2025 [facility] Work Phone: Comment on above: Expected: 05/08/2024 , Expires: 05/08/2025 Start: 04-27-2024 Covid-19 Vaccine ( season) Covid-19 Vaccine ( season) [facility] Start: 04-27-2024 Covid-19 Vaccine ( season) Covid-19 Vaccine ( season) [facility] Start: 04-27-2024 Covid-19 Vaccine ( season) Covid-19 Vaccine ( season) [facility] Start: 04-27-2024 Influenza vaccination Influenza Vacc ine (#1) [facility] Start: 08-27-2023 Advance Directive Discussion Advance Directive Discussion [facility] Start: 03-08-2023 Basic metabolic pane l calcium total METABOLIC PANEL, BASIC (24432) [facility] Work Phone: Start: 07-25-2022 Procedure Education Eprescribe d prescriptions (G8553) [facility]; [facility] Work Phone: Start: 11-07-2021 Procedure Education Eprescribe d prescriptions (G8553) [facility]; [facility] Work Phone: Start: 11-07-2021 25 hydroxy includes fractions if performed CALCIFIDIOL (14596) VIT D 25 [facility]; [facility] Work Phone: Start: 11-07-2021 Urnls dip stick/tabl et reagent auto microscopy URINALYSIS, W/ MICRO (47402) [facility]; [facility] Work Phone: Start: 11-07-2021 Comprehensive metabo lic panel METABOLIC PANEL, COMPREHENSIVE (74940) [facility]; [facility] Work Phone: Start: 11-07-2021 Lipid panel LIPID PANEL (07278) [facility]; [facility] Work Phone: Start: 11-07-2021 Blood count manual c ell count each CBC with auto diff (44928) [facility]; [facility] Work Phone: Start: 2021 Pneumococcal Vaccine : 65+ (1 of 1 - PCV) Pneumococcal Vaccine: 65+ (1 of 1 - PCV) [facility] Start: 2021 Screening for osteoporosis Bone Density Screening [facility] Start: 09-27-2021 Medicare Annual Wellness Visit Medicare Annual Wellness Visit [facility] Start: 09-17-2020 Procedure Education Eprescribe d prescriptions (G8553) [facility]; [facility] Work Phone: Start: 09-17-2020 Assay of thyroid stimulating hormone tsh TSH (75325) [facility]; [facility] Work Phone: Start: 09-17-2020 TSH Qn TSH (46585) [facility]; [facility] Work Phone: Start: 09-17-2020 Urine albumin quantitative MICROALBUMIN: CREATININE RATIO (32747) AND (79322) [facility]; [facility] Work Phone: Start: 09-17-2020 Lipid panel LIPID PANEL (65973) [facility] Work Phone: Start: 09-17-2020 Comprehensive metabo lic panel METABOLIC PANEL, COMPREHENSIVE (43247) [facility]; [facility] Work Phone: Start: 09-17-2020 Blood count manual c ell count each CBC with auto diff (88016) [facility]; [facility] Work Phone: Start: 10-16-2019 Urnls dip stick/tabl et reagent auto microscopy URINALYSIS, W/ MICRO (01875) [facility] Work Phone: Start: 10-16-2019 Comprehensive metabo lic panel METABOLIC PANEL, COMPREHENSIVE (24527) [facility] Work Phone: Start: 10-16-2019 Lipid panel LIPID PANEL (53734) [facility] Work Phone: Start: 12-02-2018 Blood count manual c ell count each CBC WITH MANUAL DIFF (49674) [facility] Work Phone: Start: 12-02-2018 Urine albumin quantitative MICROALBUMIN: CREATININE RATIO (28163) AND (16282) [facility] Work Phone: Start: 12-02-2018 Urinalysis qual/semiquant except immunoassays URINALYSIS (85158) [facility] Work Phone: Start: 12-02-2018 Comprehensive metabo lic panel Metabolic Panel, Comprehensive (27931) [facility] Work Phone: Start: 09-03-2018 Basic metabolic pane l calcium total Metabolic Panel, Basic (83561) [facility] Work Phone: Start: 09-20-2017 Procedure Education Eprescribe d prescriptions (G8553) [facility] Work Phone: Start: 09-20-2017 Comprehensive metabo lic panel METABOLIC PANEL, COMPREHENSIVE (29513) [facility] Work Phone: Start: 09-20-2017 Lipoprotein blood qu an numbers & subclasses LIPOPROTEIN, BLD, BY NMR (08511) [facility]; [facility] Work Phone: Start: 09-20-2017 Protein mass conc LIPOPROTEIN, BLD, BY NMR (52494) [facility] Work Phone: Start: 09-20-2017 25 hydroxy includes fractions if performed CALCIFIDIOL (67940) VIT D 25 [facility] Work Phone: Start: 08-23-2017 Blood count manual c ell count each CBC WITH MANUAL DIFF (06133) [facility] Work Phone: Start: 02-09-2017 Procedure Education Eprescribe d prescriptions (G8553) [facility] Work Phone: Start: 2016 RSV Vaccine (1 - 1-d ose 60+ series) RSV Vaccine (1 - 1-dose 60+ series) [facility] Start: 2016 RSV Vaccine (1 - Ris k 60-74 years 1-dose series) RSV Vaccine (1 - Risk 60-74 years 1-dose series) [facility] Start: 07-24-2016 25 hydroxy includes fractions if performed CALCIFIDIOL (01365) VIT D 25 [facility] Work Phone: Comment on above: recheck 8 weeks Start: 07-24-2016 Patient Education Mammogram *: gynecological health [facility] Work Phone: Start: 07-24-2016 Provider Instruction s for Treatment *Weight Loss Discussion [facility] Work Phone: Start: 08-12-2015 Calcium ionized CALCIUM, IONIZ ED (48675) [facility] Work Phone: Start: 08-12-2015 Assay of parathormone PARATHORMONE ( 15351) [facility] Work Phone: Start: 08-10-2015 Procedure Education Eprescribe d prescriptions (G8553) [facility] Work Phone: Start: 02-09-2015 Comprehensive metabo lic panel Metabolic Panel, Comprehensive (16642) [facility] Work Phone: Start: 02-09-2015 Lipid panel Lipid Panel (85670) [facility] Work Phone: Start: 02-09-2015 Assay of thyroid stimulating hormone tsh TSH (56467) [facility]; [facility] Work Phone: Start: 02-09-2015 Thyrotropin Qn TSH (65757) [facility] Work Phone: Start: 02-09-2015 Blood count manual c ell count each CBC WITH MANUAL DIFF (37494) [facility] Work Phone: Start: 01-22-2014 Comprehensive metabo lic panel METABOLIC PANEL, COMPREHENSIVE (47781) [facility] Work Phone: Start: 01-22-2014 Lipid panel LIPID PANEL (86823) [facility] Work Phone: Start: 01-22-2014 Blood count manual c ell count each CBC WITH MANUAL DIFF (85089) [facility] Work Phone: Start: 04-27-2013 Lipid panel LIPID PANEL (16758) [facility] Work Phone: Start: 02-07-2013 Hemoglobin A1c/Hemoglobin.total mass fraction (Bld) HgA1C , Office (34570) [facility] Work Phone: Start: 02-07-2013 Hemoglobin glycosyla humberto a1c HgA1C , Office (31572) [facility]; [facility] Work Phone: Start: 11-12-2012 Lipid panel Lipid Panel (57985) [facility] Work Phone: Start: 07-11-2012 Patient Education Fungal Infec tion of a Nail (Onychomycosis) *: fungal infection [facility] Work Phone: Start: 07-11-2012 Comprehensive metabo lic panel METABOLIC PANEL, COMPREHENSIVE (64132) [facility] Work Phone: Comment on above: in six months (appro ximately) Start: 07-11-2012 Lipid panel LIPID PANEL (11830) [facility] Work Phone: Comment on above: in six months (appro ximately) Start: 07-11-2012 Blood count manual c ell count each CBC WITH MANUAL DIFF (15702) [facility] Work Phone: Comment on above: in six months (appro ximately) Start: 07-11-2012 Hepatic function panel HEPATIC FUNCTION PANEL (61166) [facility] Work Phone: Comment on above: 6 weeks Start: 06-13-2012 Patient Education High Blood P ressure (Essential Hypertension) *: cardiovascular health [facility] Work Phone: Start: 01-26-2012 Provider Instruction s for Treatment [facility] Work Phone: Start: 11-21-2011 Urine albumin quantitative MICROALBUMIN: CREATININE RATIO (14852) AND (16118) [facility] Work Phone: Start: 11-21-2011 Comprehensive metabo lic panel METABOLIC PANEL, COMPREHENSIVE (71230) [facility] Work Phone: Start: 11-21-2011 Lipid panel LIPID PANEL (86413) [facility] Work Phone: Start: 02-23-2011 Urine albumin quantitative MICROALBUMIN: CREATININE RATIO (89006) AND (61475) [facility] Work Phone: Start: 02-23-2011 Comprehensive metabo lic panel METABOLIC PANEL, COMPREHENSIVE (78232) [facility] Work Phone: Start: 02-23-2011 Lipid panel LIPID PANEL (11419) [facility] Work Phone: Start: 02-23-2011 Blood count manual c ell count each CBC WITH MANUAL DIFF (54732) [facility] Work Phone: Start: 01-16-2011 Provider Instruction s for Treatment [facility] Work Phone: Start: 01-04-2010 Basic metabolic pane l calcium total Metabolic Panel, Basic (79720) [facility] Work Phone: Comment on above: in six months (appro ximately) Start: 06-23-2009 Urine albumin quantitative MICROALBUMIN: CREATININE RATIO (23406) AND (43996) [facility] Work Phone: Start: 06-23-2009 Comprehensive metabo lic panel METABOLIC PANEL, COMPREHENSIVE (79570) [facility] Work Phone: Start: 06-23-2009 Lipid panel LIPID PANEL (86426) [facility] Work Phone: Start: 06-23-2009 Blood count manual c ell count each CBC WITH MANUAL DIFF (27139) [facility] Work Phone: Start: 01-05-2009 Urine albumin quantitative MICROALBUMIN: CREATININE RATIO (75683) AND (55280) [facility] Work Phone: Start: 01-05-2009 Basic metabolic pane l calcium total Metabolic Panel, Basic (90129) [facility] Work Phone: Comment on above: 2 weeks Start: 01-05-2009 Comprehensive metabo lic panel Metabolic Panel, Comprehensive (15539) [facility] Work Phone: Start: 01-05-2009 Lipid panel Lipid Panel (40795) [facility] Work Phone: Start: 10-09-2008 Provider Instruction s for Treatment Colon Cancer Screening [facility] Work Phone: Start: 10-09-2008 Assay of blood/uric acid Uric Acid Blood (31763) [facility] Work Phone: Start: 10-09-2008 Assay of thyroid stimulating hormone tsh TSH (82981) [facility]; [facility] Work Phone: Start: 10-09-2008 Thyrotropin Qn TSH (42734) [facility] Work Phone: Start: 10-09-2008 Urine albumin quantitative MICROALBUMIN: CREATININE RATIO (56208) AND (82872) [facility] Work Phone: Start: 10-09-2008 Comprehensive metabo lic panel METABOLIC PANEL, COMPREHENSIVE (05264) [facility] Work Phone: Start: 10-09-2008 Lipid panel LIPID PANEL (93638) [facility] Work Phone: Start: 10-09-2008 Blood count manual c ell count each CBC WITH MANUAL DIFF (48587) [facility] Work Phone: Start: 01-30-2007 Provider Instruction s for Treatment FOLLOW UP IN 6 MONTHS [facility] Work Phone: Start: 01-30-2007 Urnls dip stick/tabl et rgnt auto w/o microscopy URINALYSIS W/O MICRO (52206) [facility] Work Phone: Start: 01-30-2007 Comprehensive metabo lic panel METABOLIC PANEL, COMPREHENSIVE (19736) [facility] Work Phone: Start: 01-30-2007 Lipid panel LIPID PANEL (85199) [facility] Work Phone: Start: 01-30-2007 Blood count manual c ell count each CBC WITH MANUAL DIFF (45425) [facility] Work Phone: Start: 2006 Pneumococcal Vaccine : 50+ (1 of 1 - PCV) Pneumococcal Vaccine: 50+ (1 of 1 - PCV) [facility] Start: 2006 Shingrix Vaccine (1 of 2) Shingrix Vaccine (1 of 2) [facility] Start: 2001 Diabetes Screening Diabetes Screenin g [facility] Start: 2001 Lipid panel Lipid Screening [facility] Start: 2001 Screening for malign ant neoplasm of colon [facility] Start: 11-15-2000 Urine microalbumin profile DTaP,Tdap,Td Vaccine (1 - Tdap) [facility] Start: 1996 Screening for malign ant neoplasm of breast Mammogram Screening [facility] Start: 1975 Urine microalbumin profile DTaP,Tdap,Td Vaccine (1 - Tdap) [facility] Start: 1974 Annual PCP Team Telecom Manager marian Disease Visit Annual PCP Team Chronic Disease Visit [facility] Start: 1974 Anxiety Screening Anxiety Screening [facility] Start: 1974 BP Controlled (<130/80) BP Controlle d (<130/80) [facility] Start: 1974 Depression Screening Depression Scre ening [facility] Start: 1974 Hepatitis C screening Hepatitis C Sc rodrick [facility] BACTERIAL VAGINOSIS NAAT BACTERIAL VAGINOSIS NAAT Lab Routine Vaginal itching 03/03/2025 10:30 AM EDT [facility] THANH/TRICHOMONAS NAAT THANH/TRICHOMONAS NAAT Lab Routine Vaginal itching 03/03/2025 10:30 AM EDT [facility] Work Phone: End: 07-10-2025 ECG COMPLETE ECG COMPLETE ECG Routine Pre-op testing 1 Occurrences starting 07/10/2024 until 07/10/2025 [facility] Comment on above: 1 Occurrences starti ng 07/10/2024 until 07/10/2025 NM Heart Views W str ess and W radionuclide IV PAP TEST PAP TEST Lab Rou cresencio Screening for malignant neoplasm of cervix 06/19/2024 10:28 AM EDT [facility] REFER FOR ADMIT INTERVIEW REFER FOR ADMIT INTERVIEW Procedures Routine Pre-op testing Ordered: 07/10/2024 [facility] Comment on above: Ordered: 07/10/2024 SURGICAL PATHOLOGY SURGICAL PATH OLOGY Lab Routine Thickened endometrium 06/19/2024 10:28 AM EDT [facility] Work Phone: End: 08-09-2025 XR Chest PA and Lateral XR CHEST 2V FRONTAL/LAT Radiology Routine Pre-op testing 1 Occurrences starting 07/10/2024 until 08/09/2025 [facility] Comment on above: 1 Occurrences starti ng [...] Immunizations Immunization Date Immunization Notes Care Provider [facility] 10-05-2020 COVID-19 (Moderna) [facility]; [facility] Work Phone: 09-03-2020 COVID-19 (Moderna) [facility]; [facility] Work Phone: Payers Date Payer Category Payer Self-pay 2023 Private Health Insurance [id number] 2023 Unknown [id number] 2021 Medicare [id number] 2021 Medicare [id number] 2021 Medicare [id number] 2017 Unknown 2016 Unknown [id number] 2010 Private Health Insurance [id number] 1955 Unknown [id number] Unknown [id number] Unknown [id number] Unknown [id number] Unknown [id number] Unknown [id number] [id number] [id number] Unknown [id number] 2.16.8 [id number] Unknown [id number] 2.16.8 [id number] Unknown [id number] 2.16.8 [id number] Unknown [id number] 2.16.8 [id number] Unknown [id number] 2.16.8 [id number] Social History Date Type Detail Facility Start: 05-08-2024 End: 07-15-2024 Alcohol Use Never smoker [facility] Work Phone: Comment on above: Occasional alcohol u se 1 QD Full-time, 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 Tobacco use: Never smoker. [facility] Work Phone: Tobacco smoking consumption unknown [facility] Tobacco use: Tobacco use: [facility]; [facility] Work Phone: Start: 02-09-2017 End: 05-08-2024 Tobacco smoking status NHIS Never smoked tobacco [facility] Start: 05-08-2024 Tobacco use and exposure Smokeless tobacco non-user [facility] Start: 05-08-2024 End: 03-03-2025 Alcoholic beverage intake Ex-drinker (finding) [facility] Start: 05-08-2024 End: 07-15-2024 Tobacco use panel Start: 04-15-2024 National Score (1-10 0), lower number is lower risk 63 [facility] Start: 1955 Sex assigned at Not on file [facility] Start: 1955 Sex Assigned At Female W [facility] Clinical Notes 05-08-2024 to 06-12-2025 Note Date & Type Note Facility 06-12-2025 Progress note [facility] 05-27-2025 Evaluation note Diagnosis Onset Date Resolution Atrial fibrillation acute Octob er 2024 8:06am Hyperlipidemia acute June 122024 8:06am Morbid obesity acute June 122024 8:06am Sleep apnea acute June 12, 2025 8:06am Hypertension chronic May 8:06am [facility] Work Phone: 1(928) 256-107309-30-2025 Radiology Diagnostic study note [facility] [address] [place] [address] CTA Chest W/WO Contrast MR#: [id number] Acct: [id number] Name: SANTA RAHMAN Rep #: [id number] : 1955 F 69 From: Dominic Martinez MD PCP: Dr. Adolfo Osborn MD Status: REG C LI Study:CTA Chest W/WO Contrast Date of Exam: 05/22/25 Exam# [id number] Ordering Dr: Adolfo Osborn MD PROCEDURE: CTA CHEST W/WO CONTRAST 05/22/2025 REASON FOR EXAM: OTHER SPECIFIED ABNORMAL FINDINGS OF BLOOD TECHNIQUE: Procedure Code: [id number] Modality: CT Procedure: CTA CHEST W/WO CONTRAST Multiplanar Sagittal and Coronal images were obtained. CONTRAST: Isovue 370 VOLUME: 100 mL One or more dose reduction techniques were used (e.g., Automated exposure control, adjustment of the mA and/or kV according to patient size, use of iterative reconstruction technique). RADIATION DOSE SUMMARY: CTDlvol: 15.5 mGy DLP: 563 mGycm COMPARISON: 09/17/2020. FINDINGS: Peripherally calcified nodule of the left thyroid lobe measuring 1 cm. Moderate coronary artery calcifications are noted. Moderate cardiomegaly. Enlarged main pulmonary artery suggestive of pulmonary arterial hypertension. Subsegmental atelectatic changes. Bilateral basilar hypoventilatory pulmonary changes/ground-glass densities of the lower lobes, hypoventilatory pulmonary changes and/or less likely developing pneumonia. Diffuse spondylosis. Normal enhancement of the main pulmonary artery and right and left pulmonary arteries. Normal enhancement of the bilateral peripheral pulmonary arteries. There is no demonstrated pulmonary embolism. Normal thoracic aorta and visualized great vessels. There is no demonstrated aortic dissection. Normal pericardium. Normal mediastinum. Normal hilar regions. Normal visualized trachea and bronchi. Normal pleura. CT/CTA Chest W/WO Contrast IMPRESSION: No demonstrated pulmonary embolism or arterial dissection. Peripherally calcified nodule of the left thyroid lobe measuring 1 cm. Moderate coronary artery calcifications are noted. Moderate cardiomegaly. Enlarged main pulmonary artery suggestive of pulmonary arterial hypertension. Subsegmental atelectatic changes. Bilateral basilar hypoventilatory pulmonary changes/ground-glass densities of the lower lobes, hypoventilatory pulmonary changes and/or less likely developing pneumonia. Diffuse spondylosis. [facility]: Dr. Adolfo Osborn MD ~ Poundmaster: Signed 07-08-2025 History of Present illness Narrative* Deja Nunez APRN.ESTIMATOR AND DRAFTER SUPERVISOR - 03/03/2025 10:30 AM EDT DATE OF SERVICE: 03/03/25 Reason for visit: [...] for a few days. Santa presented to [facility] with complaints of PMB. Thickened endometrium noted on US. 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 Patient presents to sports administrator onc for further evaluation. Patient reports that [...] tubes showing no significant pathologic abnormality. B. [place] lymph node, left, biopsy: - One lymph node, negative for carcinoma (0/1); see comment. C. [place] lymph node, right, biopsy: - One lymph [...] today's visit. PCP: - Arleth Lau [address] [facility] [address] - No primary care provider on file. (PCP) I spent a total of 30 minutes on the date of the service which included preparing to see the patient, [id number] patient care, completing clinical documentation, obtaining and/or reviewing separately obtained history, performing a medically appropriate examination, and counseling and educating the patient/family/caregiver. [facility] NoteHNO ID: [id number] Author: DEJA NUNEZ APRN.CNP Service: ? Author [...] for a few days. Santa presented to [facility] with complaints of PMB. Thickened endometrium noted on US. 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 Patient presents to sports administrator onc for further evaluation. Patient reports that [...] tubes showing no significant pathologic abnormality. B. [place] lymph node, left, biopsy: - One lymph node, negative for carcinoma (0/1); see comment. C. [place] lymph node, right, biopsy: - One lymph [...] No abdominal shanda (more content not included)... [id number] History of Present illness Narrative* Deja Nunez APRN.ESTIMATOR AND DRAFTER SUPERVISOR - 09/02/2024 11:30 AM EST DATE OF SERVICE: 09/02/2024 Reason for visit: [...] for a few days. Santa presented to [facility] with complaints of PMB. Thickened endometrium noted on US. 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 Patient presents to sports administrator onc for further evaluation. Patient reports that [...] tubes showing no significant pathologic abnormality. B. [place] lymph node, left, biopsy: - One lymph node, negative for carcinoma (0/1); see comment. C. [place] lymph node, right, biopsy: - One lymph [...] discussed with the Patient or Patient's Authorized Hyster Machine Operator. Asapplicable, any other physician, advance practice provider, medical student, or other health professional student that will be observing or involved in the sensitive examination for educational or training purposes was discussed with the Patient or Authorized Hyster Machine Operator. The Patient or Authorized Hyster Machine Operator has agreed to proceed with the sensitive examination. (Sensitive examination includes inspection and/or palpation of the breasts, pelvis, prostate and anorectal regions) OBJECTIVE: VITALS: BP 184/94 Pulse 60 Temp (Src) 98.9 (Oral) Resp 18 Wt 372 lb 2.2 oz (168.8kg) KaB112% GENERAL: alert, oriented, pleasant, and cooperative. HEENT: [...] sooner if any issues arise. Deja Nunez APRN.ESTIMATOR AND DRAFTER SUPERVISOR CC: Sera Reddy MD All documentation from previous visit of 08/14/[address] Sera Reddy was copied and pasted,documentation has been reviewed and edited as necessary for today's visit. PCP: - Arleth Lau [address] [facility] [address] - No primary care provider on file. (PCP) documented in this encounter[facility] NoteHNO ID: [id number] Author: DEJA NUNEZ APRN.AC Service: ? Author [...] for a few days. Santa presented to [facility] with complaints of PMB. Thickened endometrium noted on US. 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 Patient presents to sports administrator onc for further evaluation. Patient reports that [...] tubes showing no significant pathologic abnormality. B. [place] lymph node, left, biopsy: - One lymph node, negative for carcinoma (0/1); see comment. C. [place] lymph node, right, biopsy: - One lymph [...] No abdominal pain, nause (more content not included)...[facility] 08-14-[facility] History of Present illness Narrative* Sera Reddy MD - 08/14/2024 10:45 AM EST DATE OF SERVICE: 08/14/2024 Reason for visit: [...] for a few days. Santa presented to [facility] with complaints of PMB. Thickened endometrium noted on US. 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 Patient presents to sports administrator onc for further evaluation. Patient reports that [...] tubes showing no significant pathologic abnormality. B. [place] lymph node, left, biopsy: - One lymph node, negative for carcinoma (0/1); see comment. C. [place] lymph node, right, biopsy: - One lymph [...] 18 Wt (!) 166.9 kg (367 lb 15.2oz) SpO2 95% BMI 61.23 kg/m GENERAL: Patient [...] SCRIBE ATTESTATION: By signing my name below, I,Jeo Leeibe attest that this documentation has been prepared under the direction and in the presence of Sera Reddy MD Electronically Signed: Kip Lee. August 14, 2024 10:24 AM. Patent Lawyer Onc Staff: Patient was seen and examined by me. All plaza elements of the Fellow's history and physical were confirmed. I agree with the above documented findings and plan of care as outlined by the Fellow. Sera Reddy MD All documentation from previous visit of 07/10/[address] Sera Reddy was copied and pasted,documentation has been reviewed and edited as necessary for today's visit. PCP: - Arleth Lau [address] [facility] [id number] - No primary care provider on file. (PCP) documented in this encounterAvita [facility]12-19-2024 NoteHNO ID: [id number] Author: SERA REDDY MD Service: ? Author [...] for a few days. Santa presented to [facility] with complaints of PMB. Thickened endometrium noted on US. 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 Patient presents to sports administrator onc for further evaluation. Patient reports that [...] tubes showing no significant pathologic abnormality. B. [place] lymph node, left, biopsy: - One lymph node, negative for carcinoma (0/1); see comment. C. [place] lymph node, right, biopsy: - One lymph [...] no concerns today. OBJECT (more content not included)...[id number] Telephone encounter Note* Telephone Encounter - Deja Nunez APRN.ESTIMATOR AND DRAFTER SUPERVISOR - 07/31/2024 6:26 PM EST Called Mica to discuss her pathology results: [...] tubes showing no significant pathologic abnormality. B. [place] lymph node, left, biopsy: - One lymph node, negative for carcinoma (0/1); see comment. C. [place] lymph node, right, biopsy: - One lymph [...] levels were performed and evaluated at the [facility] using blocks B1, B2, C1, C2, and C3. Levels and cytokeratin immunohistochemical stains are all negative for carcinoma. Laboratory Developed Test (LDT) Disclaimer: Performance characteristics of immunohistochemical, immunofluorescent and chromogenic in-situ hybridization tests have been determined by the performing laboratory within [facility] Pathology and Laboratory Medicine Department ([facility], [facility], [facility], [facility],or [facility]) in a manner consistent with CLIA requirements. One or more of these tests have not been cleared or approved by the FDA. RT-PLM is regulated under CLIA as qualified to perform high-complexity testing. These tests are used for clinical purposes. They should not be regarded as invest igational or for research. Positive and negative controls [...] Pelvic Nodes Examined 2 Number of Pelvic [place] Nodes Examined 2 Total Number of Para-aortic Nodes Examined 0 pTNM CLASSIFICATION (AJCC 8th Edition) Reporting of pT, pN, and (when applicable) pM categories is based on information available to the pathologist at the time the report is issued. As per the AJCC (Chapter 1, 8th Ed.) it is the managingphysician s responsibility to establish the final pathologic [...] Nunez APRN.CNP July 31, 2024 6:28 PM [facility]12-05-2024 Miscellaneous Notes* Telephone Encounter - Deja Nunez APRN.CNP - 07/31/2024 6:26 PM EST Called Mica to discuss her pathology results: [...] tubes showing no significant pathologic abnormality. B. [place] lymph node, left, biopsy: - One lymph node, negative for carcinoma (0/1); see comment. C. [place] lymph node, right, biopsy: - One lymph node, negative for carcinoma (0/1); see comment. Diagnosis Comment A - Select slides of this case (A4, A5, A7, and A16-18) were reviewed at the departmental gynecologic consensus conference on 07/29/24, and Allison Vuong, Alvina, Elis, and Vasquez agree. B, C - According to our institutional sentinel lymph node protocol, immunohistochemical stains for AE1/3 and additional levels were performed and evaluated at the [facility] using blocks B1, B2, C1, C2, and C3. Levels and cytokeratin immunohistochemical stains are all negative for carcinoma. Laboratory Developed Test (LDT) Disclaimer: Performance characteristics of immunohistochemical, immunofluorescent and chromogenic in-situ hybridization tests have been determined by the performing laboratory within [facility] ([facility], [facility], [facility], [facility],or [facility]) in a manner consistent with CLIA requirements. One or more of these tests have not been cleared or approved by the FDA. RT-PLM is regulated under CLIA as qualified to perform high-complexity testing. These tests are used for clinical purposes. They should not be regarded as invest igational or for research. Positive and negative controls [...] Pelvic Nodes Examined 2 Number of Pelvic [place] Nodes Examined 2 Total Number of Para-aortic Nodes Examined 0 pTNM CLASSIFICATION (AJCC 8th Edition) Reporting of pT, pN, and (when applicable) pM categories is based on information available to the pathologist at the time the report is issued. As per the AJCC (Chapter 1, 8th Ed.) it is the managingphysician s responsibility to establish the final pathologic [...] 31, 2024 6:28 PM documented in this encounterAvita [facility]12-02-2024 History of Present illness Narrative* Deja Nunez APRN.ESTIMATOR AND DRAFTER SUPERVISOR - 07/28/2024 1:30 PM EST TELEVISIT PROGRESS NOTE I have communicated my name and active licensure. The patient's identity and physical location wereverified at the time of this visit. Either the patient or their legal it sales representative has been informed of the risks and benefits of -- and alternatives to -- treatment through a remote evaluation andconsents to proceed with the evaluation remotely. This is a telephone encounter initiated for an established patient, parent or guardian is within the previous 7 days, leading to an Evaluation & Management service or procedure within the next 24hours or soonest available appointment and therefore will [...] (osteo)arthritis, Sleep apnea, and Thickened endometrium (05/16/2024).Patient reportsstarted having postmenopausal bleeding intermittently since August 2023. Reports light spotting for a few days. Santa presented to [facility] with complaints of PMB. Thickened endometrium noted on US. 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 Patient presents to sports administrator onc for further evaluation. Patient reports that currently still having some spotting, though very light. 07/21/2024 SURGERY: Total laparoscopic hysterectomy with bilateral salpingo- oophorectomy Uterus >250g (22 modifier, significant additional effort [...] now s/p Total laparoscopic hysterectomy with bilateral salpingo- oophorectomy Uterus >250g (22 modifier, significant additional effort required due to BMI 61 and large fibroid uterus requiring minilaparotomy for specimen removal), Bilateral cervix injection of ICG for sentinel lymph nodemapping, Bilateral pelvic sentinel lymph node biopsy, cystoscopy Pathology in process. HTN Currently on 4 anti-hypertensives PAT prior to surgery PLAN: Overall doing post operatively. Discomfort noted to incision sites, relieved with the use of Tylenol/ibuprofen. Some umbilical incision drainage today noted- clear discharge. Will continue to monitor. Deja Nunez APRN.CNP CC: Sera Reddy MD Total time spent: 6 min PCP: - Arleth Lau [address] [place] [id number] - No primary care provider on file. (PCP) documented in this encounterAvita [facility]12-02-2024 NoteHNO ID: [id number] Author: DEJA NUNEZ APRN.CNP Service: ? Author Type: Nurse Practitioner Type: Progress Notes Filed: 07/28/2024 13:44 Note Text: TELEVISIT PROGRESS NOTE I have communicated my name and active licensure. The patient's identity and physical location were verified at the time of this visit. Either the patient or their legal it sales representative has been informed of the [...] for a few days. Santa presented to [facility] with complaints of PMB. Thickened endometrium noted on US. 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 Patient presents to sports administrator onc for further evaluation. Patient reports that [...] AND Units <39 U/mL 07/17/2024 8 PATHOLOGY: 10/24/24: FINAL DIAGNOSIS Endometrium, biopsy: - Endometrial endometrioid [...] or discharge. No shortne (more content not included)...[id number] NoteHNO ID: [id number] Author: JUAN CARLOS PEREZ SRNA Service: ? Author Type: Student Type: Anesthesia Procedure Notes Filed: 07/21/2024 08:59 Note Text: ANESTHESIOLOGY PROCEDURE NOTE PIV General Information Procedure Start Time/Medication Administration: 07/21/2024 8:00 AM Procedure End Time: 07/21/2024 8:01 AM Patient Location: OR Staffing HISTOLOGY TECHNICIAN: Sarah Mcelroy APRN.HISTOLOGY TECHNICIAN Performed by: ADAIR Preparation Sterility Preparation: hand hygiene performed prior to procedure, surgical cap used, mask used, skin prep agent completely dried prior to procedure Site Prep: alcohol Procedure Details Indication: need for IV access Needle Size/Type: 18 gauge angiocath Orientation: Right Location: Hand Imaging Guidance Used: No SIGNATURE: SIRIA Kapoor PATIENT NAME: Santa Rahman DATE: July 21, 2024 TIME: 8:58 AM CSN: [id number] Healthcare11-25-2024 NoteHNO ID: [id number] Author: JUAN CARLOS PEREZ SRNA Service: ? Author Type: Student Type: Anesthesia Procedure Notes Filed: 07/21/2024 08:56 Note Text: ANESTHESIOLOGY PROCEDURE NOTE Airway General Information Procedure Start Time/Medication Administration: 07/21/2024 7:45 AM Procedure End Time: 07/21/2024 7:45 AM Patient location during procedure: OR Timeout Performed Pre-procedure: timeout performed Consent Obtained: Yes Patient identity confirmed: arm band, care team otr truck driver and patient Staffing Anesthesiologist: Octavia Hong MD [...] July 21, 2024 TIME: 8:55 AM CSN: [id number] Healthcare11-25-2024 NoteHNO ID: [id number] Author: MARGARITA DUNN, Research Coordinator Service: ? Author Type: [...] in Epic. AE according to version 5 https://ctep.cancer.gov/protocolDevelopment/electronic_applications/docs/CTCAE_v 5_Quick_Reference_8.5x11.pdf Toxicity Grade Start Date Stop Date Relationship to Tampon Dwell/ Blood Draw Relationship to Clinically-Indicated Procedures (endometrial biopsy, gynecologic surgery, etc.) Comments Uterine hemorrhage 1 16JUL2024 Not related Not related Tampon and blood samples were processed as per study protocol and submitted to appropriate study lab. Patient to contact research with any questions. Margarita Dunn, Research CoordinatorMount [facility]. [facility]11-[facility] History of Present illness Narrative* Margarita Dunn, Research Coordinator - 07/21/2024 6:44 AM EST IRB#: [id number] Study name: Leveraging Methylated DNA [...] in Epic. AE according to version 5 https://ctep.cancer.gov/protocolDevelopment/electronic_applications/docs/C TCAE_v5_Quick_Reference_8.5x11.pdf Toxicity Grade Start Date Stop Date Relationship to Tampon Dwell/ Blood Draw Relationship to Clinically-Indicated Procedures (endometrial biopsy, gynecologic surgery, etc.) Comments Uterine hemorrhage 1 16JUL2024 Not related Not related Tampon and blood samples were processed as per study protocol and submitted to appropriate study lab. Patient to contact research with any questions. Margarita Dunn, Research Coordinator documented in this encounterAvita [facility]11-21-2024 History of Present illness Narrative* Carlos Ross CT - 07/17/2024 1:30 PM EST Radiology Service Progress Note PATIENT NAME: Santa Rahman DATE OF SERVICE: July 17, 2024 TIME: 1:46 PM PATIENT IDENTITY VERIFICATION COMPLETED USING TWO (2) IDENTIFIERS: Name and Date of confirmedby patient verbally. FALL SCREENING: Has the patient had 2 falls in the last year or 1 fall with injury or currently using an Ambulatory Assistive Device (Walker, Cane, Wheelchair, Crutches, etc.)? Yes, Patient High Riskfor Falls What interventions were put in place to prevent falls during this visit? Instructed Patient to Remain Seated (Not on Exam Table) Until Exam and Increased Observations by Caregivers PATIENT GENDER DATA: Female. status: : No status: NO. PATIENT RELEVANT IMPLANT DATA REVIEWED: Not Applicable PATIENT PRESENTS WITH AN IMPLANTABLE OR ATTACHED ENOLOGIST: No RADIOLOGY DEPARTMENT: General X-ray: Exam(s) Completed: Chest X-Ray PERIPHERAL IV DATA: Not applicable SIGNED BY: CHON Jordan July 17, 2024 1:46 PM documented in this encounterAvita [facility]11-21-2024 NoteHNO ID: [id number] Author: CARLOS ROSS CT Service: Radiology Author [...] PATIENT PRESENTS WITH AN IMPLANTABLE OR ATTACHED ENOLOGIST: No RADIOLOGY DEPARTMENT: General X-ray: Exam(s) Completed: Chest X-Ray PERIPHERAL IV DATA: Not applicable SIGNED BY: CHON Jordan July 17, 2024 1:46 PMTrihealth Mccullough-Hyde Memorial [id number] Instructions* Patient Instructions* Andrade Cole APRN.[facility] - 07/17/2024 12:42 PM EST Images from the original note were not included. [facility] PATIENT PREOPERATIVE INSTRUCTIONS Sera Reddy,* has scheduled you for your procedure at this surgery center: [facility] Scheduling Office: [phone] --[address] [place] [address]. Please read below carefully for your personalized [...] office. If you are currently using a vspo-iyi-xpod injectable or oral medication for diabetes or weight loss such as Dulaglutide (Trulicity), Exenatide (Byetta, Bydureon), Liraglutide (Victoza, Saxenda), Semaglutide (Ozempic, Wegovy, Rybelsus), or Tirzepatide (Mounjaro), the medicine should be stopped at least 7 days before surgery. These medicines can cause food to remain in your stomach for a very longtime and increase the risks from surgery and [...] Procedures: - YOU MUST HAVE A RESPONSIBLE VINYL INSTALLER TAKE YOU HOME. A SUBSURFACE AUGMENTEE ELINT OPERATOR OR DOG RAISER CANNOT BE MADE A RESPONSIBLE VINYL INSTALLER. - We recommend that a responsible person stays with you overnight to take care of you. - You cannot stay in a hotel alone after outpatient surgery. You will not be permitted to have yoursurgery, if you do not have someone to take care of you. Arrival Time for Surgery: - To obtain your arrival time for surgery, call your physician's office the day before your surgery. - If your surgery is scheduled for Sunday, call the Sunday before. Your surgeon s crew scheduler will tell you what time to call the office. - If you have not reached the departmental crew scheduler by 5 P.M., call [phone] after 5 P.M. the day before your surgery. Please be aware that emergency situations arise, which may delay or change your surgical time. If this happens, we will notify you as soon as possible and regret any inconvenience. If you already have an Advance Directive, please fax a copy to [phone] or email to for it to be added to your chart. If you do not have an Advance Directive, you can find the appropriate form and more information at [email or web address]. We recommend that youcomplete the Advance Directive form found on the website and bring it with you the day of your surgery. It can be witnessed and scanned into your chart that day. Andrade Cole APRN.CNP documented in this encounterAvita [facility]11-21-2024 History and physical note * Andrade Cole APRN.CNP - 07/17/2024 12:40 PM EST Images from the original note were not included. [facility] HISTORY AND PHYSICAL EXAMINATION SERVICE DATE: 07/17/2024 SERVICE TIME: 1:49 PM PRIMARY CARE PHYSICIAN: No primary care provider on file. Assessment Patient has the following medical conditions which may affect inés-operative course: Incomplete left bundle branch block (LBBB) Assessment: per today's EKG, no EKG's in [facility] to compare, pt states she believes this [...] during sleep Non-male patient STOP-Bang Score: 5 [id number] Score: Age: 65-74 Sex: female CHF history: No Hypertension history: Yes Stroke/TIA/thromboembolism history: No Vascular disease history: No Diabetes history: No [id number] Score: 3 ARISCAT Score: Age: 51-80 Preoperative [...] Russell present: no Lip Bite Test: I Microretrognathia/Micronagthia/Recessed Chin: No DENTAL Dental findings: teeth intact. [...] for a few days. Santa presented to [facility] with complaints of PMB. Thickened endometrium noted on US. 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 Patient presents to sports administrator onc for further evaluation. Patient reports that [...] fevers. Neurological: No history of TIA's, stroke, TRAINING PROFESSIONAL tumor, impaired sensorium, hemiplegia, paraplegia orquadraplegia. No neurological symptoms or problems. Respiratory: Positive [...] pain, CHF, congenital heart defect, DVT/PE, recent MT, murmur/valvular heart disease, PTCA, PVD, open heart surgery and valve surgery. GI: Biliary, on rx. No history of GI symptoms or problems. No history of esophageal varices, recentascites, or ETOH greater than 2 drinks per day. : No history of dysuria, frequency or incontinence, stones or chronic kidney disease. No difficulty urinating, nocturia > 1 time per night or hematuria. LINE APPLIANCE ASSEMBLER: See HPI. Negative for: vaginal bleeding and [...] (Src) 98.7 (Temporal) Resp 16 Ht 5' 5" (1.65m) Wt 367 lb 1.1 oz (166.5kg) [...] within date range. No results found for: "HBA1C" No results found for this or any previous visit (from the past 8760 hour(s)). No results found for this or any previous visit (from the past 09587 hour(s)). Instructions Given to Patient: Instructions located in the after visit summary. Patient given verbal and written preop instructions and voices comprehension and compliance. SIGNATURE: Andrade Cole APRN.CNP PATIENT NAME: Santa Rahman DATE: July 17, 2024 TIME: 12:40 PM PAGER/CONTACT #: [facility] History and physical note* Andrade Cole APRN.CNP - 07/17/2024 12:40 PM EST Images from the original note [...] during sleep Non-male patient STOP-Bang Score: 5 [id number] Score: Age: 65-74 Sex: female CHF history: No Hypertension history: Yes Stroke/TIA/thromboembolism history: No Vascular disease history: No Diabetes history: No [id number] Score: 3 ARISCAT Score: Age: 51-80 Preoperative [...] Russell present: no Lip Bite Test: I Microretrognathia/Micronagthia/Recessed Chin: No DENTAL Dental findings: teeth intact. [...] for a few days. Santa presented to [facility] with complaints of PMB. Thickened endometrium noted on US. 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 Patient presents to sports administrator onc for further evaluation. Patient reports that [...] fevers. Neurological: No history of TIA's, stroke, TRAINING PROFESSIONAL tumor, impaired sensorium, hemiplegia, paraplegia orquadraplegia. No neurological symptoms or problems. Respiratory: Positive [...] pain, CHF, congenital heart defect, DVT/PE, recent MT, murmur/valvular heart disease, PTCA, PVD, open heart surgery and valve surgery. GI: Biliary, on rx. No history of GI symptoms or problems. No history of esophageal varices, recentascites, or ETOH greater than 2 drinks per day. : No history of dysuria, frequency or incontinence, stones or chronic kidney disease. No difficulty urinating, nocturia > 1 time per night or hematuria. LINE APPLIANCE ASSEMBLER: See HPI. Negative for: vaginal bleeding and [...] (Src) 98.7 (Temporal) Resp 16 Ht 5' 5" (1.65m) Wt 367 lb 1.1 oz (166.5kg) [...] within date range. No results found for: "HBA1C" No results found for this or any previous visit (from the past 8760 hour(s)). No results found for this or any previous visit (from the past 80470 hour(s)). Instructions Given to Patient: Instructions located in the after visit summary. Patient given verbal and written preop instructions and voices comprehension and compliance. SIGNATURE: Andrade Cole APRN.CNP PATIENT NAME: Santa Rahman DATE: July 17, 2024 TIME: 12:40 PM PAGER/CONTACT #: documented in this encounterAvita [facility]11-20-2024 Telephone encounter Note * Telephone Encounter - Osmin Mccracken - 07/16/2024 9:37 AM EST Called patient and confirmed surgery date 07/21/2024 and future appointments. Patient verbalized understanding. [facility] [facility]11-20-[facility]24 Miscellaneous Notes* Telephone Encounter - Osmin Mccracken - 07/16/2024 9:37 AM EST Called patient and confirmed surgery date 07/21/2024 and future appointments. Patient verbalized understanding. documented in this encounterAvita [facility] Instructions* Patient Instructions* Dayanna Jo, CRACKING UNIT OPERATOR - 07/15/2024 8:40 AM EST Images from the original note were not included. LINE APPLIANCE ASSEMBLER ONCOLOGY PHYSICIAN CONTACT INFORMATION Surgery Scheduling Office Surgeons: Dr. Mabel Siegel Dr. Alexandra Payne Dr. Lauri Rothman Dr. Neelima Jain Dr. Sera Reddy Dr. Iron Kunz Dr. Emanuel Rudolph Dr. Mert Serra Dr. Camilo Palencia Patent Lawyer Oncology Nurse Practitioners: Lorena Castañeda, PROCEDURES TECH.ESTIMATOR AND DRAFTER SUPERVISOR Anna Calzada, PROCEDURES TECH.ESTIMATOR AND DRAFTER SUPERVISOR Cecilia Elias, PROCEDURES TECH.ESTIMATOR AND DRAFTER SUPERVISOR Beatrice Barclay, PROCEDURES TECH.ESTIMATOR AND DRAFTER SUPERVISOR Joanie Lee, PROCEDURES TECH.ESTIMATOR AND DRAFTER SUPERVISOR Peter Arthur, PROCEDURES TECH.ESTIMATOR AND DRAFTER SUPERVISOR After 4:30 pm or on holidays or weekends, call: or . Ask the operatorto page the "sports administrator oncologist access consultant." PRE-OPERATIVE CHECKLIST: PATIENT INSTRUCTIONS PRIOR TO SURGERY [...] THESE MEDICATIONS 7 DAYS PRIOR TO SURGERY: (Motrin/ibuprofen/Naproxen/Aleve/Advil), Aspirin, vitamin E, herbal medications, diet pills, and ojwu-laq-ogmzjpz medications. Tylenol (acetaminophen) is okay. I will not wear jewelry, body piercing(s), makeup, nail serbian, hairpins, or contacts on the day ofsurgery. I am to leave valuables and money [...] my surgeon. Discuss medication changes with your ammunition storekeeper or primary care physician as well. If I stopped taking my blood-thinning medication, I will ask the surgeon when to resume taking it. If I am an outpatient, a responsible person will drive me home and it was suggested that someone stay with me for 24 hours. I understand that a marketing business analyst or cabdriver is NOT a responsible caregiver. Patients with diabetes,I will not take my morning diabetes medication (pills) on the morning of surgery. If I am on insulin, someone has gone over those instructions with me for the morning of surgery. I understand if my surgery is delayed, I will notify the check in desk that I have diabetes. See the Diabetic GuidelinesBefore Surgery in the patient education section. If I have Obstructive Sleep Apnea and use a CPAP/BiPAP machine, I will bring my mask, tubing, and machine with me on the day of surgery. Pain management education material found in Your Surgical Guide was reviewed with me. To find out my arrival time for surgery, I must call my medical appointment scheduler after 2pm the day beforesurgery. Pre-operative instructions given by: PREOP INSTRUCTIONS THE DAY OF SURGERY/CHECK IN Report to DESK - for surgery. A map is located in Your Surgical Guide Book. The online version of the surgical guide book can be found at: [email or web address] The address is [address] [place] [address] INFECTION PREVENTION Please notify your doctor if you have any signs of an infection (i.e. fever, severe cough, nasal congestion, pain with urination, abnormal vaginal discharge, diarrhea, etc). Your surgeon will let you know if a bowel prep is needed before your surgery. If so, please see theattached instructions. Shower the night before surgery AND [...] solution called Chlorhexidine Gluconate (CHG) which will beprovided to you on arrival to the preop [...] Your Surgical Guide Book for more information. [facility] At the [facility], we have a multidisciplinary team of caregivers that includes fellows, residents, nurse practitioners, physician assistants, clinical nurse specialists, nurses, medical assistants, patient care nursing assistants, social workers, manager of case management and many others. We all have different [...] may have surgical glue or steri-strips on theincisions and these may be removed once they start to fall off. Shower daily after surgery. Wash your incision with antibacterial soap (such as Dial). Pat your incision dry with a clean towel. No tub baths until wound is completely healed. Wash your hands frequently, especially before touching your incision, changing any dressings, afterusing the restroom, and before eating. PAIN MANAGEMENT [...] of acetaminophen is 4,000mg and the maximum totaldaily dose of ibuprofen is 2,400mg. Take the [...] disposal station (located in many of the [facility] pharmacies). Do not flush them down the [...] communicate. Forms can be found on the [facility] Advance Directives site. You do not need a field marketing team leader to complete advance directive documents. [email or web address] nce-directives Talking about end-of-life issues is difficult, but it truly is a gift to your loved ones. We suggest using The Conversation Project (theADCentricityationproject.org) to help guide you through discussing and thinking about your wishes/preferences, goals and values and completing your advance directive. After you complete the documents, talk to those people who may be involved with your healthcare decision making, and give them a copy of your forms to make sure your wishes are followed. Please bringa copy of your advance directive documents to your next appointment, or email to as an attachment in either PDF, TIFF, or JPEG format. You can also mail to: [facility] Health Information Management, [employer] Advance Directive Processing [address] [place], [place] [address] documented in this encounterAvita Health [facility]11-19-2024 NoteHNO ID: [id number] Author: DAYANNA JO LPN Service: ? Author Type: LICENSED NURSE Type: Progress Notes Filed: 07/15/2024 08:53 Note Text: DATE OF SERVICE: 07/15/2024 PROBLEM: Santa Rahman presents for pre-op teaching. PRE-OP DIAGNOSIS: Endometrial cancer (HCC) [C54.1] SCHEDULED SURGERY AND DATE: LAPAROSCOPIC HYSTERECTOMY TOTAL FOR UTERUS 250 G OR LESS W/REMOVAL TUBE(S) AND/OR OVARY(S) [63499 (CPT?)] 07/21/2024 PRIMARY SURGEON: Dr Sera Reddy NURSING PREOP ASSESSMENT: Fevers, chills, cough, or nasal congestion: No Vaginal itching, burning, discharge, or odor: No Pain with urination, frequency, urgency, cloudy or foul smelling urine: No If yes to any of the above then MD notified: Not Applicable ADVANCED CARE PLANNING: Does the patient have an advanced directive: No Does [facility] have a copy of the patient's advanced [...] prescribed by anesthesia, internal medicine, surgeon, or BENCH MOLDER APPRENTICE Stop NSAIDs, Aspirin (ASA), vitamins, herbal supplements, [...] jewelry, body piercing, makeup, contacts, lotions, nail serbian on fingers, or anything in hair on arrival to surgery Wear low healed shoes and loose fitting clothing Leave all valuables at home or with a family member Directions to [facility] and [facility] Parking/parking validation on the day prior to [...] - IV pain medication after surgery, IV HAND STRAIGHTENER if ordered by MD, discharged home with [...] please send any FMLA papers to physician's field secretary. SYMPTOMS TO NOTIFY MD - Fever, chills, nausea, vomiting, increased or severe pain, heavy vaginal bleeding, foul smelling vaginal drainage, pain or swelling in extremities. URGENT SYMPTOMS - Call 911 or go to ER if any shortness of breath, difficulty breathing, or chest pain. HOW TO CONTACT PHYSICIAN - Physician's office phone number given to patient, (more content not included)...[facility]11-19-2024 History of Present illness Narrative* Dayanna Jo, CRACKING UNIT OPERATOR - 07/15/2024 8:34 AM EST DATE OF SERVICE: 07/15/2024 PROBLEM: Santa Rahman presents for pre-op teaching. PRE-OP DIAGNOSIS: Endometrial cancer (HCC) [C54.1] SCHEDULED SURGERY AND DATE: LAPAROSCOPIC HYSTERECTOMY TOTAL FOR UTERUS 250 G OR LESS W/REMOVAL TUBE(S) AND/OR OVARY(S) [17310 (CPT )] 07/21/2024 PRIMARY SURGEON: Dr Sera Reddy NURSING PREOP ASSESSMENT: Fevers, chills, cough, or nasal congestion: No Vaginal itching, burning, discharge, or odor: No Pain with urination, frequency, urgency, cloudy or foul smelling urine: No If yes to any of the above then MD notified: Not Applicable ADVANCED CARE PLANNING: Does the patient have an advanced directive: No Does [facility] have a copy of the patient's advanced [...] prescribed by anesthesia, internal medicine, surgeon, or BENCH MOLDER APPRENTICE Stop NSAIDs, Aspirin (ASA), vitamins, herbal supplements, [...] jewelry, body piercing, makeup, contacts, lotions, nail serbian on fingers, or anything in hair on arrival to surgery Wear low healed shoes and loose fitting clothing Leave all valuables at home or with a family member Directions to [facility] and [facility] Parking/parking validation on the day prior to [...] trial, UTI symptoms reviewed and patient instructed rayray ORTA of any of these symptoms. INCISION CARE - Keep incision clean and dry, ellie to be removed 7-10 days after surgery, steristrips do not need to be removed by MD BATHING - OK to shower after surgery unless otherwise directed by MD, no tub baths. PAIN MEDICATION - IV pain medication after surgery, IV HAND STRAIGHTENER if ordered by MD, discharged home with aprescription for PO pain medication, pain management after surgery, side effects of pain medication(including constipation, dizziness, drowsiness, and medication interactions). VAGINAL CARE - Pelvic rest x6 weeks unless otherwise directed by MD. DVT PROPHYLAXIS - Early ambulation, SCDs, injectable anticoagulants (heparin, lovenox, etc) RESPIRATORY - Incentive spirometer, coughing/deep breathing exercises, ambulation. RETURN TO WORK - As directed by physician, please send any FMLA papers to physician's field secretary. SYMPTOMS TO NOTIFY MD - Fever, chills, nausea, vomiting, increased or severe pain, heavy vaginal bleeding, foul smelling vaginal drainage, pain or swelling in extremities. URGENT SYMPTOMS - Call 911 or go to ER if any shortness of breath, difficulty breathing, or chest pain. HOW TO CONTACT PHYSICIAN - Physician's office phone number given to patient, if after hours patientinstructed to call fire pot operator and ask for access consultant sports administrator onc resident. VALENTÍN program offered to patient: [...] None Educator: Dayanna Jo LPN [facility] documented in this encounterAvita Health [facility]11-14-2024 NoteHNO ID: [id number] Author: DANILO CHICAS RN Service: ? Author [...] questions were answered. Contact information for the Research/Gas Appliance Repairer was given to the patient. The patient [...] in Epic. AE according to version 5 https://ctep.cancer.gov/protocolDevelopment/electronic_applications/docs/CTCAE_v 5_Quick_Reference_8.5x11.pdf Toxicity Grade Start Date Stop Date Relationship to Tampon Dwell/ Blood Draw Relationship to Clinically-Indicated Procedures (endometrial biopsy, gynecologic surgery, etc.) Comments None Patient to contact research with any questions prior to sugery. Danilo Chicas, [facility]11-14-2024 History of Present illness Narrative* Danilo Chicas, RN - 07/10/2024 1:28 PM EST IRB#: [id number] Study name: Leveraging Methylated DNA [...] questions were answered. Contact information for the Research/Gas Appliance Repairer was given to the patient. The patient verbalized appropriate understanding of all the aforementioned information presented. Information was also discussed with regards to [i.e. testing, lab draw(s), tissue collection, potential risks/benefits, side effects, alternatives, clinical trial personnel involved, financial responsibilities regarding procedures] for the Optional Blood Sample Collection for Storage and Future Rese arch at the end of the Main Consent [...] in Epic. AE according to version 5 https://ctep.cancer.gov/protocolDevelopment/electronic_applications/docs/C TCAE_v5_Quick_Reference_8.5x11.pdf Toxicity Grade Start Date Stop Date Relationship to Tampon Dwell/ Blood Draw Relationship to Clinically-Indicated Procedures (endometrial biopsy, gynecologic surgery, etc.) Comments None Patient to contact research with any questions prior to sugery. Danilo Chicas RN documented in this encounterAvita Health [facility]11-14-2024 Instructions* Patient Instructions* Deja Nunez APRN.ESTIMATOR AND DRAFTER SUPERVISOR - 07/10/2024 1:21 PM EST Images from the original note were not included. Please visit the following website for the [facility] surgery guide. [email or web address] PATIENT SURGICAL CHECKLIST - NEXT STEPS Your surgeon's office will call you to arrange your surgery date and pre- admission testing appointments. You should receive a call within 2-5 business days from our scheduling team. (If you do not receive a call within 5 days - please call [phone]) Pre-admission testing appointments include: - Preop anesthesia [...] You will receive a call from the professor of surgery the business day prior to your surgery as to when and where to arrive on the day of your scheduled surgery LINE APPLIANCE ASSEMBLER ONCOLOGY PHYSICIAN CONTACT INFORMATION Surgery Scheduling Office Surgeons: Dr. Mabel Siegel Dr. Alexandra Payne Dr. Lauri Rothman Dr. Neelima Jain Dr. Sera Reddy Dr. Iron Kunz Dr. Emanuel Rudolph Dr. Mert Serra Dr. Camilo Palencia Patent Lawyer Oncology Nurse Practitioners: Lorena Castañeda, PROCEDURES TECH.AC Calzada, PROCEDURES TECH.AC Elias, PROCEDURES TECH.AC Barclay, PROCEDURES TECH.AC Lee, PROCEDURES TECH.ESTIMATOR AND DRAFTER SUPERVISOR Peter Arthur, PROCEDURES TECH.ESTIMATOR AND DRAFTER SUPERVISOR After 4:30 pm or on holidays or weekends, call: or . Ask the operatorto page the "sports administrator oncologist access consultant." LINE APPLIANCE ASSEMBLER ONCOLOGY PHYSICIAN CONTACT INFORMATION [place] [phone] Surgeons: Dr. Mabel Rudolph Patent Lawyer Oncology advanced practice providers: Anna Waller, PROCEDURES TECH.AC Khan, PROCEDURES TECH.CA Nunez PROCEDURES TECH.ESTIMATOR AND DRAFTER SUPERVISOR After 4:30 pm or on holidays or weekends, call: or . Ask the operatorto page the "sports administrator oncologist access consultant." PRE-OPERATIVE CHECKLIST: PATIENT INSTRUCTIONS PRIOR TO SURGERY [...] THESE MEDICATIONS 7 DAYS PRIOR TO SURGERY: (Motrin/ibuprofen/Naproxen/Aleve/Advil), Aspirin, vitamin E, herbal medications, diet pills, and xods-xex-bumpvrr medications. Tylenol (acetaminophen) is okay. I will not wear jewelry, body piercing(s), makeup, nail serbian, hairpins, or contacts on the day ofsurgery. I am to leave valuables and money [...] my surgeon. Discuss medication changes with your ammunition storekeeper or primary care physician as well. If I stopped taking my blood-thinning medication, I will ask the surgeon when to resume taking it. If I am an outpatient, a responsible person will drive me home and it was suggested that someone stay with me for 24 hours. I understand that a marketing business analyst or cabdriver is NOT a responsible caregiver. Patients with diabetes,I will not take my morning diabetes medication (pills) on the morning of surgery. If I am on insulin, someone has gone over those instructions with me for the morning of surgery. I understand if my surgery is delayed, I will notify the check in desk that I have diabetes. See the Diabetic GuidelinesBefore Surgery in the patient education section. If I have Obstructive Sleep Apnea and use a CPAP/BiPAP machine, I will bring my mask, tubing, and machine with me on the day of surgery. Pain management education material found in Your Surgical Guide was reviewed with me. To find out my arrival time for surgery, I must call my medical appointment scheduler after 2pm the day beforesurgery. Pre-operative instructions given by: PREOP INSTRUCTIONS THE DAY OF SURGERY/CHECK IN Report to DESK - for surgery. A map is located in Your Surgical Guide Book. The online version of the surgical guide book can be found at: [email or web address] The address is [address] [place] [address] INFECTION PREVENTION Please notify your doctor if you have any signs of an infection (i.e. fever, severe cough, nasal congestion, pain with urination, abnormal vaginal discharge, diarrhea, etc). Your surgeon will let you know if a bowel prep is needed before your surgery. If so, please see theattached instructions. Shower the night before surgery AND [...] solution called Chlorhexidine Gluconate (CHG) which will beprovided to you on arrival to the preop [...] Your Surgical Guide Book for more information. [facility] At the [facility], we have a multidisciplinary team of caregivers that includes fellows, residents, nurse practitioners, physician assistants, clinical nurse specialists, nurses, medical assistants, patient care nursing assistants, social workers, manager of case management and many others. We all have different [...] may have surgical glue or steri-strips on theincisions and these may be removed once they start to fall off. Shower daily after surgery. Wash your incision with antibacterial soap (such as Dial). Pat your incision dry with a clean towel. No tub baths until wound is completely healed. Wash your hands frequently, especially before touching your incision, changing any dressings, afterusing the restroom, and before eating. PAIN MANAGEMENT [...] of acetaminophen is 4,000mg and the maximum totaldaily dose of ibuprofen is 2,400mg. Take the [...] disposal station (located in many of the [facility] pharmacies). Do not flush them down the [...] breathing, or chest pain. documented in this encounterAvita Health [facility]11-07-2024 NoteHNO ID: [id number] Author: SERA REDDY MD Service: ? Author [...] for a few days. Santa presented to LINE APPLIANCE ASSEMBLER with complaints of PMB. Thickened endometrium noted on US. 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 Patient presents to sports administrator onc for further evaluation. Patient reports that [...] lower extremity edema, or palpitations. No recent MT (within 6 months), cardiac stent, cardiac surgery, gangrene, or PVD. No history of hypertension. BREAST: No breast lumps, skin changes, nipple discharge, or adenopathy. GI: No abdominal pain, nausea, vomiting, diarrhea, or constipation, +bloating, diarrhea (improved with medication cholestipal). No prior history of esophageal varicies or ascites. Patient denies drinking >2 alcoholic beverages a day. LINE APPLIANCE ASSEMBLER: + spotting.No vulvar bumps, lesions, pruritis, or [...] history of a bleedi (more content not included)...[id number] History of Present illness Narrative* Sera Reddy MD - 07/03/2024 2:57 PM EST Images from the original note [...] for a few days. Santa presented to LINE APPLIANCE ASSEMBLER with complaints of PMB. Thickened endometrium noted on US. 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 Patient presents to sports administrator onc for further evaluation. Patient reports that [...] lower extremity edema, or palpitations. No recent MT (within 6 months), cardiac stent, cardiac surgery, gangrene, or PVD. No history of hypertension. BREAST: No breast lumps, skin changes, nipple discharge, or adenopathy. GI: No abdominal pain, nausea, vomiting, diarrhea, or constipation, +bloating, diarrhea (improved with medication cholestipal). No prior history of esophageal varicies or ascites. Patient denies drinking >2 alcoholic beverages a day. LINE APPLIANCE ASSEMBLER: + spotting.No vulvar bumps, lesions, pruritis, or [...] history of a bleeding disorder. Not on chronicanticoagulant/platelet medications. ENDOCRINE: No cold or heat intolerance, [...] planned inpatient admission, please place CONSULT TO [facility] [employer] [facility]. OBJECTIVE: VITALS: BP 198/81 Pulse 70 Resp [...] no palpable cords, and no skin changes. Recruiter Coordinator for exam: Mahsa Seals MD The sensitive examination was discussed with the Patient or Patient's Authorized Hyster Machine Operator. Asapplicable, any other physician, advance practice provider, medical student, or other health professional student that will be observing or involved in the sensitive examination for educational or training purposes was discussed with the Patient or Authorized Hyster Machine Operator. The Patient or Authorized Hyster Machine Operator has agreed to proceed with the sensitive [...] including CA 125 -Plan for surgery at [facility] on 07/21 Sera Reddy MD Medical Decision Making: Problems: High: Illness/injury w/ threat to life/body function Data: Unique source(s) for external note(s) reviewed: 1 Unique test result(s) reviewed: 3+ Independent interpretation of test from other physician/QHCP Risk: High: Decision on elective major surgery w/ risk factors Medical Decision Making Level: 5 - High PCP: - Arleth Lau [address] [facility] [id number] - No primary care provider on file. (PCP) documented in this encounterAvita [facility]10-24-2024 Instructions* Patient Instructions* Arleth Lau APRN.CNP - 06/19/2024 10:05 AM EDT Please make a virtual follow up appointment with me to review pathology and plan. documented in this encounterAvita Health [facility]10-24-2024 Arleth Buckley APRN.CNP 06/19/2024 10:05 AM ENDOMETRIAL BIOPSY PROCEDURE Date/Time: 06/19/2024 9:58 AM Performed by: Arleth Lau APRN.CNP Authorized by: Arleth Lau APRN.CNP Diagnosis: (R93.89) Thickened endometrium (primary encounter diagnosis) (Z12.4) Screening for malignant neoplasm of cervix No LMP recorded. Patient is postmenopausal. Informed Consent Consent Obtained: Written [place] Protocol A moment to CARE was completed. [...] and Plan of Care Visit completed when applicableAvita Health [facility] Hospital10-24-2024 NoteHNO ID: [id number] Author: ARLETH LAU APRN.AC Service: ? Author [...] 06/19/2024 9:58 AM Performed by: Arleth Lau APRN.ESTIMATOR AND DRAFTER SUPERVISOR Authorized by: Arleth Lau APRN.CNP Diagnosis: (R93.89) Thickened endometrium (primary encounter diagnosis) (Z12.4) Screening for malignant neoplasm of cervix No LMP recorded. Patient is postmenopausal. Informed Consent Consent Obtained: Written [place] Protocol A moment to CARE was completed. [...] Arleth Lau APRN.CNP June 19, 2024 10:01 [facility]10-24-2024 History of Present illness Narrative* Arleth Lau APRN.CNP - 06/19/2024 9:56 AM EDT Associated Order(s): ENDO BIOPSY Santa Rahman is scheduled for an endometrial biopsy at the request of Dr. Her. Unable to compete biopsy in office. Her hx is complicated by BMI 61.18, history of complex endometrial hyperplasia, and thickened endometrial stripe on US at 13mm. ENDOMETRIAL BIOPSY PROCEDURE Date/Time: 06/19/2024 9:58 AM Performed by: Arleth Lau APRN.ESTIMATOR AND DRAFTER SUPERVISOR Authorized by: Arleth Lau APRN.CNP Diagnosis: (R93.89) Thickened endometrium (primary encounter diagnosis) (Z12.4) Screening for malignant neoplasm of cervix No LMP recorded. Patient is postmenopausal. Informed Consent Consent Obtained: Written [place] Protocol A moment to CARE was completed. [...] 19, 2024 10:01 AM documented in this encounterAvita Health [facility]09-25-2024 Telephone encounter Note * Telephone Encounter - Shobha Tompkins RN - 05/21/2024 11:11 AM EDT Attempted to contact patient. No answer and unable to leave a voicemail. Mailbox is full. Shobha Tompkins RN [facility]09-25-2024 Miscellaneous Notes* Telephone Encounter - Shobha Tompkins RN - 05/21/2024 11:11 AM EDT Attempted to contact patient. No answer and unable to leave a voicemail. Mailbox is full. Shobha Tompkins RN * Telephone Encounter - Hunter Her MD - 05/21/2024 9:55 AM EDT Please contact patient and relay referral to [facility] for evaluation of thickened endometrium. We are not able to accomplish this in our office as we were unable to visualize the cervix. Hunter Her MD documented [facility] Telephone encounter Note * Telephone Encounter - Hunter Her MD - 05/21/2024 9:55 AM EDT Please contact patient and relay referral to [facility] for evaluation of thickened endometrium. We are not able to accomplish this in our office as we were unable to visualize the cervix. Hunter Her MD [facility]09-20-2024 Note Indication Evaluation of abnormal uterine bleeding: [...] Swathi Barrios RDMS Read By: Nickie Don M.D.MATERNAL [id number] NoteHNO ID: [id number] Author: NICKIE DON MD Service: ? Author Type: Physician Type: Progress Notes Filed: 05/16/2024 16:19 Note Text: The patient presents for requested ultrasound. Full report available in the "Imaging" tab in [employer]. Nickie Don [facility]09-20-2024 History of Present illness Narrative* Nickie Don MD - 05/16/2024 4:11 PM EDT The patient presents for requested ultrasound. Full report available in the "Imaging" tab in [employer]. Nickie Don MD documented [facility] Telephone encounter Note * Telephone Encounter - Marianela Diaz RN - 05/13/2024 10:54 AM EDT Received records from [facility]. Placed in AT's mailbox to review when he returns tomorrow to office. Marianela Diaz RN [facility]09-17-2024 Miscellaneous Notes* Telephone Encounter - Marianela Diaz RN - 05/13/2024 10:54 AM EDT Received records from [facility]. Placed in AT's mailbox to review when he returns tomorrow to office. Marianela Diaz RN documented in this encounter[facility]24 NoteHNO ID: [id number] Author: BLANCHE SHARPE LPN Service: ? Author Type: LICENSED NURSE Type: Progress Notes Filed: 05/08/2024 11:55 Note Text: Recruiter Coordinator offered: Patient accepts, visit chaperoned by Maria Guadalupe Sharpe. The sensitive examination was discussed with the Patient or Patient's Authorized Hyster Machine Operator. As applicable, any other physician, advance practice provider, medical student, or other health professional student that will be observing or involved in the sensitive examination for educational or training purposes was discussed with the Patient or Authorized Hyster Machine Operator. The Patient or Authorized Hyster Machine Operator has agreed to proceed with the sensitive examination. (Sensitive examination includes inspection and/or palpation of the breasts, pelvis, prostate and anorectal regions) Santa is a 68 year old who presents today for an endometrial biopsy for postmenopausal bleeding with a hx of complex endometrial hyperplasia identified on DANDC on 03/25/12 test: n/a UNIVERSAL PROTOCOL / [...] accessing the cervix > 60 min. Hunter Her, [facility]09-12-2024 History of Present illness Narrative* Blanche Sharpe LPN - 05/08/2024 11:08 AM EDT Recruiter Coordinator offered: Patient accepts, visit chaperoned by Maria Guadalupe Sharpe. The sensitive examination was discussed with the Patient or Patient's Authorized Hyster Machine Operator. Asapplicable, any other physician, advance practice provider, medical student, or other health professional student that will be observing or involved in the sensitive examination for educational or training purposes was discussed with the Patient or Authorized Hyster Machine Operator. The Patient or Authorized Hyster Machine Operator has agreed to proceed with the sensitive [...] cervix > 60 min. Hunter Her MD documented in this encounterAv[facility] Instructions* Patient Instructions* Blanche Sharpe LPN - 05/08/2024 11:08 AM [...] well as have some bleeding after the procedure.There is also a risk of infection after [...] do not hear the results of your biopsyafter 2 weeks, please contact the office for the results. If you have any additional questions or concerns please do not hesitate to contact the office. [facility] [place] [facility]* Diagnosis Encounter for screening for malignant neoplasm of cervix- Primary Screening for malignant neoplasm of the cervix Postmenopausal bleeding documented in this encounter [facility] [place] [facility]* Diagnosis Postmenopausal bleeding- Primary Fibroids, subserous Subserous leiomyoma of uterus Abnormal ultrasound of endometrium Nonspecific (abnormal) findings on radiological and other examination of genitourinary organs Thickened endometrium Nonspecific (abnormal) findings on radiological and other examination of genitourinary organs documented [facility] this encounter [facility] [place] [facility]* Diagnosis Thickened endometrium- Primary Nonspecific (abnormal) findings on radiological and other examination of genitourinary organs documented [facility] [place] [facility]* Diagnosis Thickened endometrium- Primary Nonspecific (abnormal) findings on radiological and other examination of genitourinary organs Screening for malignant neoplasm of cervix Screening for malignant neoplasm of the cervix documented in this encounter [facility] [place] [facility]* Diagnosis Endometrial cancer (HCC)- Primary Malignant neoplasm of corpus uteri, except isthmus Endometrial adenocarcinoma (HCC) Malignant neoplasm of corpus uteri, except isthmus Endometrial cancer (HCC) Malignant neoplasm of corpus uteri, except isthmus documented in this encounter [facility] [place] [facility]* Diagnosis Pre-op testing- Primary Preoperative examination, unspecified Endometrial cancer (HCC) Malignant neoplasm of corpus uteri, except isthmus Preop examination Preoperative examination, unspecified Endometrial cancer (HCC) Malignant neoplasm of corpus uteri, except isthmus documented [facility] this [facility] [place] [facility]* Diagnosis Educational circumstances- Primary Educational circumstance Endometrial cancer (HCC) Malignant neoplasm of corpus uteri, except isthmus documented [facility] this [facility] [place] [facility]* Diagnosis Pre-operative examination- Primary Preoperative examination, [...] PCP, records requested documented [facility] this encounter [facility] [place] [facility]* Diagnosis Pre-operative examination- Primary Preoperative examination, unspecified Incomplete left bundle branch block (LBBB) Essential hypertension, benign Bilateral leg edema Edema MORGAN (obstructive sleep apnea) Obstructive sleep apnea (adult) (pediatric) Morbid obesity (HCC) Morbid obesity Pre-op testing Preoperative examination, unspecified Endometrial cancer (HCC) Malignant neoplasm of corpus uteri, except isthmus documented [facility] encounter [facility] [place] [facility]* Diagnosis Pre-operative examination- Primary Preoperative examination, unspecified Incomplete left bundle branch block (LBBB) Essential hypertension, benign Bilateral leg edema Edema MORGAN (obstructive sleep apnea) Obstructive sleep apnea (adult) (pediatric) Morbid obesity (HCC) Morbid obesity Endometrial cancer (HCC)- Primary Malignant neoplasm of corpus uteri, except isthmus documented in this encounter [facility] note* Diagnosis Pre-operative examination- Primary Preoperative examination, unspecified Incomplete left bundle branch block (LBBB) Essential hypertension, benign Bilateral leg edema Edema MORGAN (obstructive sleep apnea) Obstructive sleep apnea (adult) (pediatric) Morbid obesity (HCC) Morbid obesity Post-operative state- Primary Other postprocedural status documented in this encounter [facility] note* Diagnosis Pre-operative examination- Primary Preoperative examination, unspecified Incomplete left bundle branch block (LBBB) Essential hypertension, benign Bilateral leg edema Edema MORGAN (obstructive sleep apnea) Obstructive sleep apnea (adult) (pediatric) Morbid obesity (HCC) Morbid obesity Endometrial cancer (HCC)- Primary Malignant neoplasm of corpus uteri, except isthmus documented in this encounter [facility] note* Diagnosis Pre-operative examination- Primary Preoperative examination, unspecified Incomplete left bundle branch block (LBBB) Essential hypertension, benign Bilateral leg edema Edema MORGAN (obstructive sleep apnea) Obstructive sleep apnea (adult) (pediatric) Morbid obesity (HCC) Morbid obesity Post-operative state- Primary Other postprocedural status documented in this encounter [facility] note* Diagnosis Pre-operative examination- Primary Preoperative examination, [...] of genital organs documented in this [facility] noteNo assessment information availableWOhioHealth [facility] Work Phone: Instructions* Name Dates Details Patient Instructions Indication:BMI 45.0-49.9, adult Start:15-Apr-2021 Instruction Type:Provider Instructions for Treatment How to Access Health Informa tion Online using Patient Portal and [employer] Apps Indication:BMI 45.0-49.9, adult Start:15-Apr-2021 Instruction Type:Patient Education Patient Instructions Indication:BMI 45.0-49.9, adult Start:17-Sep-2020 Instruction Type:Provider Instructions for Treatment How to Access Health Informa tion Online using Patient Portal and [employer] Apps Indication:BMI 45.0-49.9, adult Start:17-Sep-2020 Instruction Type:Patient [...] Informa tion Online using Patient Portal and [employer] Apps Indication:BMI 45.0-49.9, adult Start:15-Apr-2021 Instruction Type:Patient Education Patient Instructions Indication:BMI 45.0-49.9, adult Start:17-Sep-2020 Instruction Type:Provider Instructions for Treatment How to Access Health Informa tion Online using Patient Portal and [employer] Apps Indication:BMI 45.0-49.9, adult Start:17-Sep-2020 Instruction Type:Patient [...] tion Online using Patient Portal and [employer] Apps Indication:BMI 45.0-49.9, adult Start:15-Apr-2021 Instruction Type:Patient Education Patient Instructions Indication:BMI 45.0-49.9, adult Start:17-Sep-2020 Instruction Type:Provider Instructions for Treatment How to Access Health Informa tion Online using Patient Portal and [employer] Apps Indication:BMI 45.0-49.9, adult Start:17-Sep-2020 Instruction Type:Patient [...] tion Online using Patient Portal and [employer] Apps Indication:Current nonsmoker (Renamed from Current non-smoker) Start:07-Nov-2021 Instruction Type:Patient Education Patient Instructions Indication:BMI 45.0-49.9, adult Start:15-Apr-2021 Instruction Type:Provider Instructions for Treatment How to Access Health Informa tion Online using Patient Portal and [employer] Apps Indication:BMI 45.0-49.9, adult Start:15-Apr-2021 Instruction Type:Patient Education Patient Instructions Indication:BMI 45.0-49.9, adult Start:17-Sep-2020 Instruction Type:Provider Instructions for Treatment How to Access Health Informa tion Online using Patient Portal and [employer] Apps Indication:BMI 45.0-49.9, adult Start:17-Sep-2020 Instruction Type:Patient [...] tion Online using Patient Portal and [employer] Apps Indication:Current nonsmoker (Renamed from Current non-smoker) Start:07-Nov-2021 Instruction Type:Patient Education Patient Instructions Indication:BMI 45.0-49.9, adult Start:15-Apr-2021 Instruction Type:Provider Instructions for Treatment How to Access Health Informa tion Online using Patient Portal and [employer] Apps Indication:BMI 45.0-49.9, adult Start:15-Apr-2021 Instruction Type:Patient Education Patient Instructions Indication:BMI 45.0-49.9, adult Start:17-Sep-2020 Instruction Type:Provider Instructions for Treatment How to Access Health Informa tion Online using Patient Portal and [employer] Apps Indication:BMI 45.0-49.9, adult Start:17-Sep-2020 Instruction Type:Patient [...] tion Online using Patient Portal and [employer] Apps Indication:Current nonsmoker (Renamed from Current non-smoker) Start:07-Nov-2021 Instruction Type:Patient Education Patient Instructions Indication:BMI 45.0-49.9, adult Start:15-Apr-2021 Instruction Type:Provider Instructions for Treatment How to Access Health Informa tion Online using Patient Portal and [employer] Apps Indication:BMI 45.0-49.9, adult Start:15-Apr-2021 Instruction Type:Patient Education Patient Instructions Indication:BMI 45.0-49.9, adult Start:17-Sep-2020 Instruction Type:Provider Instructions for Treatment How to Access Health Informa tion Online using Patient Portal and [employer] Indication:BMI 45.0-49.9, adult Start:17-Sep-2020 Instruction Type:Patient [...] tion Online using Patient Portal and [employer] Apps Indication:BMI 50.0-59.9, adult Start:25-Jul-2022 Instruction Type:Patient Education Patient Instructions Indication:Current nonsmoker (Renamed from Current non-smoker) Start:07-Nov-2021 Instruction Type:Provider Instructions for Treatment How to Access Health Informa tion Online using Patient Portal and [employer] Apps Indication:Current nonsmoker (Renamed from Current non-smoker) Start:07-Nov-2021 Instruction Type:Patient Education Patient Instructions Indication:BMI 45.0-49.9, adult Start:15-Apr-2021 Instruction Type:Provider Instructions for Treatment How to Access Health Informa tion Online using Patient Portal and [employer] Apps Indication:BMI 45.0-49.9, adult Start:15-Apr-2021 Instruction Type:Patient Education Patient Instructions Indication:BMI 45.0-49.9, adult Start:17-Sep-2020 Instruction Type:Provider Instructions for Treatment How to Access Health Informa tion Online using Patient Portal and [employer] Apps Indication:BMI 45.0-49.9, adult Start:17-Sep-2020 Instruction Type:Patient [...] Informa tion Online using Patient Portal and [employer] Apps Indication:BMI 50.0-59.9, adult Start:25-Jul-2022 Instruction Type:Patient Education Patient Instructions Indication:Current nonsmoker (Renamed from Current non-smoker) Start:07-Nov-2021 Instruction Type:Provider Instructions for Treatment How to Access Health Informa tion Online using Patient Portal and [employer] Apps Indication:Current nonsmoker (Renamed from Current non-smoker) Start:07-Nov-2021 Instruction Type:Patient Education Patient Instructions Indication:BMI 45.0-49.9, adult Start:15-Apr-2021 Instruction Type:Provider Instructions for Treatment How to Access Health Informa tion Online using Patient Portal and [employer] Apps Indication:BMI 45.0-49.9, adult Start:15-Apr-2021 Instruction Type:Patient Education Patient Instructions Indication:BMI 45.0-49.9, adult Start:17-Sep-2020 Instruction Type:Provider Instructions for Treatment How to Access Health Informa tion Online using Patient Portal and [employer] Apps Indication:BMI 45.0-49.9, adult Start:17-Sep-2020 Instruction Type:Patient [...] Informa tion Online using Patient Portal and [employer] Apps Indication:BMI 50.0-59.9, adult Start:25-Jul-2022 Instruction Type:Patient Education Patient Instructions Indication:Current nonsmoker (Renamed from Current non-smoker) Start:07-Nov-2021 Instruction Type:Provider Instructions for Treatment How to Access Health Informa tion Online using Patient Portal and [employer] Apps Indication:Current nonsmoker (Renamed from Current non-smoker) Start:07-Nov-2021 Instruction Type:Patient Education Patient Instructions Indication:BMI 45.0-49.9, adult Start:15-Apr-2021 Instruction Type:Provider Instructions for Treatment How to Access Health Informa tion Online using Patient Portal and [employer] Indication:BMI 45.0-49.9, adult Start:15-Apr-2021 Instruction Type:Patient Education Patient Instructions Indication:BMI 45.0-49.9, adult Start:17-Sep-2020 Instruction Type:Provider Instructions for Treatment How to Access Health Informa tion Online using Patient Portal and [employer] Apps Indication:BMI 45.0-49.9, adult Start:17-Sep-2020 Instruction Type:Patient [...] Internal Medicine; [facility] Work Phone: progress note Author Alex Finley [facility] Note Date/Time June 12, 2025 8 :39am [facility] [address] [place] [address] OFFICE VISIT Date of Service: 06/12/25 MR#: [id number] Acct: [id number] Name: SANTA RAHMAN Rep #: [id number] : [id number] Provider: Dr. London Finley MD Age/Sex: 69/F [place] [facility] [place] Signed HPI HPI History of Present Illness Details: Patient is a very pleasant 69-year-old white female that comes in today for new patient visit for atrial fibrillation. Patient reports that sometime in February she believes is when she first noticed some palpitations. She was evaluated with an echocardiogram May 08, 2025 and was noted to be in atrial fibrillation and has been on Eliquis for approximately a month now. She is on 5 mg twice daily. The patient is also on metoprolol which has had good rate control. ECG in office today shows atrial fibrillation with a controlled ventricular response at 65 bpm she has borderlinelow voltage QRS is consistent with her body habitus and poor R wave progression consistent with her body habitus. The echocardiogram done May 08 showed apulmonary artery pressure of 48 mmHg with tricuspid regurgitation. She had mildmitral annular calcification 1+ MR 1+ TR moderate biatrial enlargement mild concentric LVH with an EF of 65%. Her aortic root was mildly dilated. She had aortic valve sclerosis with no stenosis. The patient carries a history of hypertension blood pressure is 184/92 in the office she reports it is usually 136 over the mid 80s in her home environment. The patient does have known coronary disease with an elevated coronary calcification noted on CT scan. This was described as moderate there was no scoring done. Patient also has a history of hyperlipidemia that is managed through the primary service she had blood work done yesterday which we do not have access to at this time. Patient also has obstructive sleep apnea she is onCPAP which she uses religiously. The patient denies any syncope or near syncope she is aware when she is in atrial fibrillation. She denies any chest pains tightness or squeezing. She does have bilateral lower extremity large legs with nonpitting edema. The patient is currently being evaluated for surgical weight loss intervention through [facility]. She has failed on GLP-1 intervention. The patient's cardiovascular risk factors include a family history of both coronary disease and infarcts as well as sudden cardiac and 2 family members with atrial fibrillation. She is hypertensive and hyperlipidemic. The patient is not diabetic and she has never smoked. Intake Vital Signs 06/12/25 08:12 Height 5 ft 5 in Weight: 163 lb BMI 27.1 BP 182/92 H Blood Pressure Location Lt brachial Position Sitting Respiration 20 H Pulse 70 Pulse Source Monitor Pulse Oximetry (%) 94 Intake Visit Reasons: NEW ONSET AFIB (BONEZZI) Information [employer] Required: No Is patient in pain?: No Allergies No Known Allergies Allergy (Unverified 06/12/25 08:12) Medications ?Medication ?Instructions ?Recorded ?Confirmed ?Type amlodipine 10 mg tablet (Norvasc) 10 mg PO QDAY 06/12/25 History ascorbic acid (vitamin C) 1,000 mg 1,000 mg PO BID 09/2006/12/25 History tablet cetirizine 10 mg capsule (Zyrtec) 10 mg PO QDAY 06/12/25 History cholecalciferol (vitamin D3) 50 50 mcg PO QDAY 06/12/25 History mcg (2,000 unit) capsule coQ10 (ubiquinol) 100 mg capsule 200 mg PO QDAY 06/12/25 History (Qunol Facundo CoQ10) colestipol 1 gram tablet 5 g PO QAC 05/27/25 06/12/25 History hydrochlorothiazide 25 mg tablet 25 mg PO QDAY 06/12/25 History losartan 100 mg tablet 100 mg PO QDAY 05/27/2505/27 History metoprolol tartrate 100 mg tablet 100 mg PO BID 06/12/25 History (Lopressor) multivitamin 1 tab PO QDAY 05/27/2506/12 History zinc sulfate 50 mg zinc (220 mg) 50 mg PO QDAY 06/12/25 History tablet apixaban 5 mg tablet (Eliquis) 5 mg PO BID 06/12/25 History Ejection fraction %: 65 Have you fallen in the past year?: No PFSH Medical History Heart murmur Endometrial cancer, grade I Abnormal brain MRI Morbid obesity Hyperlipidemia Anxiety and depression Sleep apnea Atrial fibrillation Hypertension Surgical History History of hysterectomy Family History Son Hyperlipidemia Mother CAD (coronary artery disease) Myocardial infarction Sister CAD (coronary artery disease) Atrial fibrillation Grandmother Colon cancer Brother SVT (supraventricular tachycardia) Atrial fibrillation Brother , age 53 from [place] Myocardial infarction Social History Smoking Status: Never smoker ROS Const Const: Negative for fatigue, weakness, headache(s) or frequent falls Eyes Eyes: Negative for blurry vision ENT ENT: Negative for headache(s), dizziness or Nosebleed/epistaxis Cardio Chest Pain: No Palpitations: No Edema: Bilateral and None Muscle aches with walking: None Resp Respiratory: Positive for SOB with activity; Negative for SOB at rest or SOB orthopnea\\SOB lying down GI GI: Negative nausea, vomiting, heartburn, bright, red blood in stools or black,tarry stools : Negative for hematuria Neuro Neuro: Negative for dizziness, lightheadedness, near syncope, syncope, frequent falls, headache(s), weakness or blurry vision Endo Endo: Negative for fatigue Cardiology Exam Const Appearance: cooperative, comfortable and no acute distress Nutritional Appearance: obese Head Head: normal to inspection Eyes General: appearance normal, both eyes and all related structures Neck Neck: normal visual inspection and no JVD Carotids: Negative bruit Chest Chest inspection: other (Increased AP diameter due to morbid obesity) Auscultation: Bilateral: Clear to Auscultation Cardio Rate: regular rate Rhythm: irregularly irregular Heart sounds: S1 normal, S2 normal and murmur; Negative rub or gallop Murmur: Grade 1/6, mid systolic and RLSB GI GI: obese Neuro General: patient alert and patient oriented x3 Extremities Lower Extremity Edema: +3: Bilateral (Nonpitting) Psych Psychological: normal affect Supplemental Info Supplemental Information Diagnostics: Echocardiogram Chest X-Ray Chest CTA Venous Doppler Study Past Visits: Cardiology Visit Today Assessment and Plan Assessment and Plan (1) Atrial fibrillation: Status: Acute Qualifiers: Atrial fibrillation type: paroxysmal Qualified Code(s): I48.0 - Paroxysmal atrial fibrillation Plan: Patient apparently developed atrial fibrillation by symptoms in the mid summer around February 2025. She has been on Eliquis 5 mg twice daily for a month as of today. She does have a history of coronary artery disease by calcium noted on CT angiogram. The patient does not have a history of pulmonary emboli. She does have obstructive sleep apnea on a family history and is hypertensive. We need to rule out an ischemic event/etiology. Pharmacologic nuclear stress test has been ordered. Given the moderate biatrial enlargement there is a chance that direct-current cardioversion may not be effective. However, given the short duration of her atrial fibrillation I would recommend that as long as the stress test shows no significant ischemia that we proceed with direct-current cardioversion. I did not elect to start her on antiarrhythmic therapy given her risk profile. If thedirect-current cardioversion is not effective we would readdress possible options for antiarrhythmic therapy. The patient needs to be aggressively treated for weight loss. I went over with the patient detail the plan to continue Eliquis uninterrupted, obtain pharmacologic nuclear stress test to rule out ischemia, and then to proceed with direct-current cardioversion. The procedure risk/benefit and alternatives were explained to the patient in detail she voiced understanding and agrees to proceed with the plan as outlined. (2) Morbid obesity: Status: Acute Plan: Patient's morbid obesity being evaluated and treated through the surgical weight loss center. In order to clear her for surgery we will need to try and restore normal sinus rhythm but we need to rule out with pharmacologic stress testing any ischemic burden. (3) Hyperlipidemia: Status: Acute Qualifiers: Hyperlipidemia type: unspecified Qualified Code(s): E78.5 - Hyperlipidemia, unspecified Plan: Managed through the primary service lab work was done yesterday which results are pending. (4) Sleep apnea: Status: Acute Qualifiers: Sleep apnea type: obstructive Qualified Code(s): G47.33 - Obstructive sleep apnea (adult) (pediatric) Plan: Patient reports she utilizes her CPAP. (5) Hypertension: Status: Chronic Qualifiers: Hypertension type: primary hypertension Qualified Code(s): I10 - Essential (primary) hypertension Plan: Blood pressure is elevated in office today at 182/92 however in her home environment she reports it is 136/85. She is on multiple drug therapy with amlodipine 10 mg daily hydrochlorothiazide 25 mg daily and metoprolol 100 mg twice daily. If blood pressure continues to be a problem consideration may be given of switching her from metoprolol to Coreg for better antihypertensive effect. At this point in time I would recommend she continue metoprolol for rate control ofher atrial fibrillation. The plan would be to rule out ischemia with pharmacologic nuclear stress test and then proceed with direct-current cardioversion. Orders: Orders 12 Lead EKG performed by [facility] Today I48.91 - Unspecified atrial fibrillation Nuclear Stress Test - Chemical Today I48.91 - Unspecified atrial fibrillation Plan 1. Pharmacologic nuclear stress test 2. Plan for direct-current cardioversion in the near future following results of the stress test. 3. Will follow-up with the patient in 1 month in the office and as needed pending results of the testing and cardioversion. Plan Details Additional Comments: This note was generated with [employer] software. It may contain incorrectwords, spelling, and punctuation that were not noted in checking the note beforesigning. Follow Up: 1 Month (With BRYANT and as needed) Coding Level of Care Code Off vis,est,level 4 Diagnoses Paroxysmal atrial fibrillation I48.0 Atrial fibrillation type: paroxysmal Morbid obesity E66.01 Hyperlipidemia, unspecified hyperlipidemia type E78.5 Hyperlipidemia type: unspecified Obstructive sleep apnea syndrome G47.33 Sleep apnea type: obstructive Primary hypertension I10 Hypertension type: primary hypertension Coding Level of Care Code Off vis,est,level 4 Diagnoses Paroxysmal atrial fibrillation I48.0 Atrial fibrillation type: paroxysmal Morbid obesity E66.01 Hyperlipidemia, unspecified hyperlipidemia type E78.5 Hyperlipidemia type: unspecified Obstructive sleep apnea syndrome G47.33 Sleep apnea type: obstructive Primary hypertension I10 Hypertension type: primary hypertension Clinical Quality Measures Falls Risk Screening/Assistive Devices Have you fallen in the past year?: No Cardiac Ejection fraction %: 65 06/12/25 0851 <Electronically signed by Alex larsen MD> Date _ Alex Finley MD Cosigner Signature: Date (if applicable) CC: ~ [facility] Work Phone: Reason for referral (narrative)* Diagnostic Procedure Only (Routine) - Authorized Specialty Diagnoses / Procedures Referred By Contmony t Referred To Contact [facility] Diagnoses Postmenopausal bleeding Procedures PELVIC US WHI US PELVIC NONOBSTETRIC REAL-TIME IMAGE COMPLETE Hunter Her MD [address] [place] [address] [facility] [address] [place] [address] Referral ID Status Reason Start Date Expiration Date Visits Requested Visits Authorized [id number] Authorized Auto-Generat ed Referral 05/08/2024 05/08/2025 1 1 [facility] Outpatient Procedure (Routine) - New Request Specialty Diagnoses / Procedures Referred By Contac t Referred To Contact [facility] Diagnoses Pre-op testing Procedures ECG COMPLETE ECG ROUTINE ECG W/LEAST 12 LDS W/I&R Deja Nunez APRN.CNP [address] [place] [address] [address] Referral ID Status Reason Start Date Expiration Date Visits Requested Visits Authorized [id number] New Request Auto-Generat ed Referral 4 07/10/2025 1 1 * Consult, Test, Treat (Routine) - Authorized Specialty Diagnoses / Procedures Referred By Contac t Referred To Contact Diagnoses Pre-op testing Procedures REFER TO [facility] - PREOPERATIVE OPTIMIZATION OFFICE/OUTPATIENT NEW HIGH MDM 60 MINUTES Deja Nunez APRN.CNP [address] [place] [address] Referral ID Status Reason Start Date Expiration Date Visits Requested Visits Authorized [id number] Authorized PCP Requested Referral 4 07/10/2025 1 1 [facility]No reason for referral information [facility]WOhio[facility] Work Phone: Reason for visit Narrative* Diagnostic Procedure Only (Routine) - Closed Specialty Diagnoses / Procedures Referred By Contac t Referred To Contact [facility] Diagnoses Postmenopausal bleeding Procedures PELVIC US WHI US PELVIC NONOBSTETRIC REAL-TIME IMAGE COMPLETE Hunter Her MD [address] [place] [address] [facility] [place] [address] Referral ID Status Reason Start Date Expiration Date V isits Requested Visits Authorized [id number] Closed Auto-Generate d Referral 05/08/2024 05/08/2025 1 1 [facility] Family History No Family History Records FoundUnknown Family Member Name Dates Details Brother 1 Comments:MT started 42 yo- d ied of [place] at age 53 Status:Active Brother 2 Comments:SVT Status:Active Daughter 1 Comments:healthy Status:Active Family Members In General Comments:Emotional problems, Heart/Lung problems, HBP, High cholesterol Status:Active Father Comments:Healthy, still chavo ng Status:Active Maternal Grandmother Comments:colon cancer 6 2yo Status:Active Mother Comments:Mild [place], hx peptic ulcers, GERD, CAD still living Status:Active Sister 1 Comments:younger. dx wtih CA D at 55. Status:Active Son 1 Comments:hyperlipidemia Status:Active Son 2 Comments:hyperlipidemia Status:Active Unknown Family Member Name Dates Details Brother 1 Comments:MT started 42 yo- d ied of [place] at age 53 Status:Active Brother 2 Comments:SVT Status:Active Daughter 1 Comments:healthy Status:Active Family Members In General Comments:Emotional problems, Heart/Lung problems, HBP, High cholesterol Status:Active Father Comments:Healthy, still chavo ng Status:Active Maternal Grandmother Comments:colon cancer 6 2yo Status:Active Mother Comments:Mild [place], hx peptic ulcers, GERD, CAD still living Status:Active Sister 1 Comments:younger. dx wtih CA D at 55. Status:Active Son 1 Comments:hyperlipidemia Status:Active Son 2 Comments:hyperlipidemia Status:Active Unknown Family Member Name Dates Details Brother 1 Comments:MT started 42 yo- d ied of [place] at age 53 Status:Active Brother 2 Comments:SVT Status:Active Daughter 1 Comments:healthy Status:Active Family Members In General Comments:Emotional problems, Heart/Lung problems, HBP, High cholesterol Status:Active Father Comments:Healthy, still chavo ng Status:Active Maternal Grandmother Comments:colon cancer 6 2yo Status:Active Mother Comments:Mild [place], hx peptic ulcers, GERD, CAD still living Status:Active Sister 1 Comments:younger. dx wtih CA D at 55. Status:Active Son 1 Comments:hyperlipidemia Status:Active Son 2 Comments:hyperlipidemia Status:Active Unknown Family Member Name Dates Details Brother 1 Comments:MT started 42 yo- d ied of [place] at age 53 Status:Active Brother 2 Comments:SVT Status:Active Daughter 1 Comments:healthy Status:Active Family Members In General Comments:Emotional problems, Heart/Lung problems, HBP, High cholesterol Status:Active Father Comments:Healthy, still chavo ng Status:Active Maternal Grandmother Comments:colon cancer 6 2yo Status:Active Mother Comments:Mild [place], hx peptic ulcers, GERD, CAD still living Status:Active Sister 1 Comments:younger. dx wtih CA D at 55. Status:Active Son 1 Comments:hyperlipidemia Status:Active Son 2 Comments:hyperlipidemia Status:Active Unknown Family Member Name Dates Details Brother 1 Comments:MT started 42 yo- d ied of [place] at age 53 Status:Active Brother 2 Comments:SVT, afib Status:Active Daughter 1 Comments:healthy Status:Active Family Members In General Comments:Emotional problems, Heart/Lung problems, HBP, High cholesterol Status:Active Father Comments:Healthy, still chavo ng Status:Active Maternal Grandmother Comments:colon cancer 6 2yo Status:Active Mother Comments:Mild [place], hx peptic ulcers, GERD, CAD still living Status:Active Sister 1 Comments:younger. dx wtih CA D at 55. afib Status:Active Son 1 Comments:hyperlipidemia Status:Active Son 2 Comments:hyperlipidemia Status:Active Unknown Family Member Name Dates Details Brother 1 Comments:MT started 42 yo- d ied of [place] at age 53 Status:Active Brother 2 Comments:SVT, afib Status:Active Daughter 1 Comments:healthy Status:Active Family Members In General Comments:Emotional problems, Heart/Lung problems, HBP, High cholesterol Status:Active Father Comments:Healthy, still chavo ng Status:Active Maternal Grandmother Comments:colon cancer 6 2yo Status:Active Mother Comments:Mild [place], hx peptic ulcers, GERD, CAD still living Status:Active Sister 1 Comments:younger. dx wtih CA D at 55. afib Status:Active Son 1 Comments:hyperlipidemia Status:Active Son 2 Comments:hyperlipidemia Status:Active Unknown Family Member Name Dates Details Brother 1 Comments:MT started 42 yo- d ied of [place] at age 53 Status:Active Brother 2 Comments:SVT, afib Status:Active Daughter 1 Comments:healthy Status:Active Family Members In General Comments:Emotional problems, Heart/Lung problems, HBP, High cholesterol Status:Active Father Comments:Healthy, still chavo ng Status:Active Maternal Grandmother Comments:colon cancer 6 2yo Status:Active Mother Comments:Mild [place], hx peptic ulcers, GERD, CAD still living Status:Active Sister 1 Comments:younger. dx wtih CA D at 55. afib Status:Active Son 1 Comments:hyperlipidemia Status:Active Son 2 Comments:hyperlipidemia Status:Active Unknown Family Member Name Dates Details Brother 1 Comments:MT started 42 yo- d ied of [place] at age 53 Status:Active Brother 2 Comments:SVT, afib Status:Active Daughter 1 Comments:healthy Status:Active Family Members In General Comments:Emotional problems, Heart/Lung problems, HBP, High cholesterol Status:Active Father Comments:Healthy, still chavo ng Status:Active Maternal Grandmother Comments:colon cancer 6 2yo Status:Active Mother Comments:Mild [place], hx peptic ulcers, GERD, CAD still living Status:Active Sister 1 Comments:younger. dx wtih CA D at 55. afib Status:Active Son 1 Comments:hyperlipidemia Status:Active Son 2 Comments:hyperlipidemia Status:Active Unknown Family Member Name Dates Details Brother 1 Comments:MT started 42 yo- d ied of [place] at age 53 Status:Active Brother 2 Comments:SVT, afib Status:Active Daughter 1 Comments:healthy Status:Active Family Members In General Comments:Emotional problems, Heart/Lung problems, HBP, High cholesterol Status:Active Father Comments:Healthy, still chavo ng Status:Active Maternal Grandmother Comments:colon cancer 6 2yo Status:Active Mother Comments:Mild [place], hx peptic ulcers, GERD, CAD still living Status:Active Sister 1 Comments:younger. dx wtih CA D at 55. afib Status:Active Son 1 Comments:hyperlipidemia Status:Active Son 2 Comments:hyperlipidemia Status:Active Unknown Family Member Name Dates Details Brother 1 Comments:MT started 42 yo- d ied of [place] at age 53 Status:Active Brother 2 Comments:SVT Status:Active Daughter 1 Comments:healthy Status:Active Family Members In General Comments:Emotional problems, Heart/Lung problems, HBP, High cholesterol Status:Active Father Comments:Healthy, still chavo ng Status:Active Maternal Grandmother Comments:colon cancer 6 2yo Status:Active Mother Comments:Mild [place], hx peptic ulcers, GERD, CAD still living Status:Active Sister 1 Comments:younger. dx wtih CA D at 55. Status:Active Son 1 Comments:hyperlipidemia Status:Active Son 2 Comments:hyperlipidemia Status:Active Unknown Family Member Name Dates Details Brother 1 Comments:MT started 42 yo- d ied of [place] at age 53 Status:Active Brother 2 Comments:SVT, afib Status:Active Daughter 1 Comments:healthy Status:Active Family Members In General Comments:Emotional problems, Heart/Lung problems, HBP, High cholesterol Status:Active Father Comments:Healthy, still chavo ng Status:Active Maternal Grandmother Comments:colon cancer 6 2yo Status:Active Mother Comments:Mild [place], hx peptic ulcers, GERD, CAD still living Status:Active Sister 1 Comments:younger. dx wtih CA D at 55. afib Status:Active Son 1 Comments:hyperlipidemia Status:Active Son 2 Comments:hyperlipidemia Status:Active Unknown Family Member Name Dates Details Brother 1 Comments:MT started 42 yo- d ied of [place] at age 53 Status:Active Brother 2 Comments:SVT, afib Status:Active Daughter 1 Comments:healthy Status:Active Family Members In General Comments:Emotional problems, Heart/Lung problems, HBP, High cholesterol Status:Active Father Comments:Healthy, still chavo ng Status:Active Maternal Grandmother Comments:colon cancer 6 2yo Status:Active Mother Comments:Mild [place], hx peptic ulcers, GERD, CAD still living Status:Active Sister 1 Comments:younger. dx wtih CA D at 55. afib Status:Active Son 1 Comments:hyperlipidemia Status:Active Son 2 Comments:hyperlipidemia Status:Active Unknown Family Member Name Dates Details Brother 1 Comments:MT started 42 yo- d ied of [place] at age 53 Status:Active Brother 2 Comments:SVT, afib Status:Active Daughter 1 Comments:healthy Status:Active Family Members In General Comments:Emotional problems, Heart/Lung problems, HBP, High cholesterol Status:Active Father Comments:Healthy, still chavo ng Status:Active Maternal Grandmother Comments:colon cancer 6 2yo Status:Active Mother Comments:Mild [place], hx peptic ulcers, GERD, CAD still living Status:Active Sister 1 Comments:younger. dx wtih CA D at 55. afib Status:Active Son 1 Comments:hyperlipidemia Status:Active Son 2 Comments:hyperlipidemia Status:Active Unknown Family Member Name Dates Details Brother 1 Comments:MT started 42 yo- d ied of [place] at age 53 Status:Active Brother 2 Comments:SVT, afib Status:Active Daughter 1 Comments:healthy Status:Active Family Members In General Comments:Emotional problems, Heart/Lung problems, HBP, High cholesterol Status:Active Father Comments:Healthy, still chavo ng Status:Active Maternal Grandmother Comments:colon cancer 6 2yo Status:Active Mother Comments:Mild [place], hx peptic ulcers, GERD, CAD still living Status:Active Sister 1 Comments:younger. dx wtih CA D at 55. afib Status:Active Son 1 Comments:hyperlipidemia Status:Active Son 2 Comments:hyperlipidemia Status:Active Unknown Family Member Name Dates Details Brother 1 Comments:MT started 42 yo- d ied of [place] at age 53 Status:Active Brother 2 Comments:SVT, afib Status:Active Daughter 1 Comments:healthy Status:Active Family Members In General Comments:Emotional problems, Heart/Lung problems, HBP, High cholesterol Status:Active Father Comments:Healthy, still chavo ng Status:Active Maternal Grandmother Comments:colon cancer 6 2yo Status:Active Mother Comments:Mild [place], hx peptic ulcers, GERD, CAD still living Status:Active Sister 1 Comments:younger. dx wtih CA D at 55. afib Status:Active Son 1 Comments:hyperlipidemia Status:Active Son 2 Comments:hyperlipidemia Status:Active Unknown Family Member Name Dates Details Brother 1 Comments:MT started 42 yo- d ied of [place] at age 53 Status:Active Brother 2 Comments:SVT, afib Status:Active Daughter 1 Comments:healthy Status:Active Family Members In General Comments:Emotional problems, Heart/Lung problems, HBP, High cholesterol Status:Active Father Comments:Healthy, still chavo ng Status:Active Maternal Grandmother Comments:colon cancer 6 2yo Status:Active Mother Comments:Mild [place], hx peptic ulcers, GERD, CAD still living Status:Active Sister 1 Comments:younger. dx wtih CA D at 55. afib Status:Active Son 1 Comments:hyperlipidemia Status:Active Son 2 Comments:hyperlipidemia Status:Active Unknown Family Member Name Dates Details Brother 1 Comments:MT started 42 yo- d ied of [place] at age 53 Status:Active Brother 2 Comments:SVT, afib Status:Active Daughter 1 Comments:healthy Status:Active Family Members In General Comments:Emotional problems, Heart/Lung problems, HBP, High cholesterol Status:Active Father Comments:Healthy, still chavo ng Status:Active Maternal Grandmother Comments:colon cancer 6 2yo Status:Active Mother Comments:Mild [place], hx peptic ulcers, GERD, CAD still living Status:Active Sister 1 Comments:younger. dx wtih CA D at 55. afib Status:Active Son 1 Comments:hyperlipidemia Status:Active Son 2 Comments:hyperlipidemia Status:Active Unknown Family Member Name Dates Details Brother 1 Comments:MT started 42 yo- d ied of [place] at age 53 Status:Active Brother 2 Comments:SVT, afib Status:Active Daughter 1 Comments:healthy Status:Active Family Members In General Comments:Emotional problems, Heart/Lung problems, HBP, High cholesterol Status:Active Father Comments:Healthy, still chavo ng Status:Active Maternal Grandmother Comments:colon cancer 6 2yo Status:Active Mother Comments:Mild [place], hx peptic ulcers, GERD, CAD still living Status:Active Sister 1 Comments:younger. dx wtih CA D at 55. afib Status:Active Son 1 Comments:hyperlipidemia Status:Active Son 2 Comments:hyperlipidemia Status:Active Unknown Family Member Name Dates Details Brother 1 Comments:MT started 42 yo- d ied of [place] at age 53 Status:Active Brother 2 Comments:SVT, afib Status:Active Daughter 1 Comments:healthy Status:Active Family Members In General Comments:Emotional problems, Heart/Lung problems, HBP, High cholesterol Status:Active Father Comments:Healthy, still chavo ng Status:Active Maternal Grandmother Comments:colon cancer 6 2yo Status:Active Mother Comments:Mild [place], hx peptic ulcers, GERD, CAD still living Status:Active Sister 1 Comments:younger. dx wtih CA D at 55. afib Status:Active Son 1 Comments:hyperlipidemia Status:Active Son 2 Comments:hyperlipidemia Status:Active Unknown Family Member Name Dates Details Brother 1 Comments:MT started 42 yo- d ied of [place] at age 53 Status:Active Brother 2 Comments:SVT, afib Status:Active Daughter 1 Comments:healthy Status:Active Family Members In General Comments:Emotional problems, Heart/Lung problems, HBP, High cholesterol Status:Active Father Comments:Healthy, still chavo ng Status:Active Maternal Grandmother Comments:colon cancer 6 2yo Status:Active Mother Comments:Mild [place], hx peptic ulcers, GERD, CAD still living Status:Active Sister 1 Comments:younger. dx wtih CA D at 55. afib Status:Active Son 1 Comments:hyperlipidemia Status:Active Son 2 Comments:hyperlipidemia Status:Active Unknown Family Member Name Dates Details Brother 1 Comments:MT started 42 yo- d ied of [place] at age 53 Status:Active Brother 2 Comments:SVT, afib Status:Active Daughter 1 Comments:healthy Status:Active Family Members In General Comments:Emotional problems, Heart/Lung problems, HBP, High cholesterol Status:Active Father Comments:Healthy, still chavo ng Status:Active Maternal Grandmother Comments:colon cancer 6 2yo Status:Active Mother Comments:Mild [place], hx peptic ulcers, GERD, CAD still living Status:Active Sister 1 Comments:younger. dx wtih CA D at 55. afib Status:Active Son 1 Comments:hyperlipidemia Status:Active Son 2 Comments:hyperlipidemia Status:Active Relationship Condition Age at Onset Recorded Date/T raffaele son Hyperlipidemia Unknown mother Coronary artery disease Unknown Myocardial infarction Unknown sister Coronary artery disease Unknown Atrial fibrillation Unknown grandmother Malignant neoplasm of colon Unknown brother Supraventricular tachycardia Unknown brother Myocardial infarction Unknown Instructions Name Dates Details Hypertension : How [...] Well woman exam : How to acc [employer] health information online - Detail Indication:Well woman [...] Current non-smoker) Abnormal gait : How to [employer] information online Indication:Abnormal gait Abnormal gait : How to [employer] information online - Detail Indication:Abnormal gait Abnormal [...] Well woman exam : How to acc [employer] health information online - Detail Indication:Well woman [...] Current non-smoker) Abnormal gait : How to [employer] information online Indication:Abnormal gait Abnormal gait : How to [employer] health information online - Detail Indication:Abnormal gait [...] Well woman exam : How to acc [employer] health information online - Detail Indication:Well woman [...] Current non-smoker) Abnormal gait : How to [employer] information online Indication:Abnormal gait Abnormal gait : How to [employer] information online - Detail Indication:Abnormal gait Abnormal gait : Patient Inst ructions Indication:Abnormal gait Impaired fasting glucose : H ow to access health information online Indication:Impaired fasting glucose Impaired fasting glucose : H ow to access health information online - Detail Indication:Impaired fasting glucose Impaired fasting glucose : P atient Instructions Indication:Impaired fasting glucose Well woman exam : How to acc [employer] health information online Indication:Well woman exam Well woman exam : How to acc [employer] health information online - Detail Indication:Well woman [...] Informa tion Online using Patient Portal and [employer] Indication:BMI 45.0-49.9, adult Start:17-Sep-2020 Instruction Type:Patient [...] Informa tion Online using Patient Portal and [employer] Indication:BMI 45.0-49.9, adult Start:17-Sep-2020 Instruction Type:Patient [...] Records Found Name Dates Details Immunization Registry [place] - Effective on 10/08/2020. Expiration date unspecified Effective:08-Oct-2020 Name Dates Details Immunization Registry [place] - Effective on 10/08/2020. Expiration date unspecified Effective:08-Oct-2020 Name Dates Details Immunization Registry [place] - Effective on 10/08/2020. Expiration date unspecified Effective:08-Oct-2020 Name Dates Details Immunization Registry [place] - Effective on 10/08/2020. Expiration date unspecified Effective:08-Oct-2020 Name Dates Details Immunization Registry [place] - Effective on 10/08/2020. Expiration date unspecified Effective:08-Oct-2020 Name Dates Details Immunization Registry [place] - Effective on 10/08/2020. Expiration date unspecified Effective:08-Oct-2020 Name Dates Details Immunization Registry [place] - Effective on 10/08/2020. Expiration date unspecified Effective:08-Oct-2020 Name Dates Details Immunization Registry [place] - Effective on 10/08/2020. Expiration date unspecified Effective:08-Oct-2020 Name Dates Details Immunization Registry [place] - Effective on 10/08/2020. Expiration date unspecified Effective:08-Oct-2020 Name Dates Details Immunization Registry [place] - Effective on 10/08/2020. Expiration date unspecified Effective:08-Oct-2020 Name Dates Details Immunization Registry [place] - Effective on 10/08/2020. Expiration date unspecified Effective:08-Oct-2020 Summary Purpose Reason for Referral Specialty Diagnoses / Procedures Referred By Eddy t Referred To Contact Diagnoses Thickened endometrium Procedures CONSULT TO MINIMALLY INVASIVE GYNECOLOGIC SURGERY OFFICE/OUTPATIENT [facility] 60 MINUTES Hunter Her MD [address] [place] [address] Referral ID Status Reason Start Date Expiration Date Visits Requested Visits Authorized [id number] Authorized PCP Requested Referral Auto-Generate d Referral 05/21/2024 05/21/2025 1 1 Chief Complaint and Reason for Visit Chief Complaint Admit Date SCREENING April 20, 2025 1: 39pm Chief Complaint Admit Date SCREENING April 20, 2025 1: 39pm cardiac murmur May 08, 2025 1:11pm R79.89 Other specified abnormal findings of blood May 22, 2025 5:14pm Chief Complaint Admit Date SCREENING April 20, 2025 1: 39pm cardiac murmur May 08, 2025 1:11pm R79.89 Other specified abnormal findings of blood May 22, 2025 5:14pm NEW ONSET AFIB (BONEZZI) June 12, 025 8:06am Reason for Visit Admit Date Atrial fibrillation June 12, 2025 8 :06am Hyperlipidemia June 12, 2025 8 :06am Morbid obesity June 12, 2025 8 :06am Sleep apnea June 12, 2025 8 :06am Hypertension June 12, 2025 8 :06am Additional Source Comments <item><item><item> Privacy Markings (unrecogniz [...] section and content) DATE CREATED AUTHOR 04/08/2022 [facility] DATE CREATED AUTHOR AUTHOR'S ORGANIZ ATION 04/08/2022 [facility] DATE CREATED AUTHOR AUTHOR'S ORGANIZ ATION 09/04/2022 [facility] DATE CREATED AUTHOR AUTHOR'S ORGANIZ ATION 07/20/2024 [facility] DATE CREATED AUTHOR AUTHOR'S ORGANIZ ATION 07/22/[address] [facility] DATE CREATED AUTHOR AUTHOR'S ORGANIZ ATION 03/07/2025 [facility] DATE CREATED AUTHOR AUTHOR'S ORGANIZ ATION 06/28/2025 [facility] Source Comments (unrecognize d section and content) In the event this informatio n is protected by the Federal Confidentiality of Alcohol and Drug Abuse Patient Records regulations: The Federal rules restrict any use of the information to criminally investigate or prosecute any alcohol or drug abuse patient.[facility] the event this information is protected by the Federal Confidentiality of Alcohol and Drug Abuse Patient Records regulations: The Federal rules restrict any use of the information to criminally investigate or prosecute any alcohol or drug abuse patient.[facility] Hospital[facility] the event this information is protected by the Federal Confidentiality of Alcohol and Drug Abuse Patient Records regulations: The Federal rules restrict any use of the information to criminally investigate or prosecute any alcohol or drug abuse patient.[facility] Hospital[facility] the event this information is protected by the Federal Confidentiality of Alcohol and Drug Abuse Patient Records regulations: The Federal rules restrict any use of the information to criminally investigate or prosecute any alcohol or drug abuse patient.[facility] HospitalIn the event this information is protected by the Federal Confidentiality of Alcohol and Drug Abuse Patient Records regulations: The Federal rules restrict any use of the information to criminally investigate or prosecute any alcohol or drug abuse patient.[facility] Hospital[facility] the event this information is protected by the Federal Confidentiality of Alcohol and Drug Abuse Patient Records regulations: The Federal rules restrict any use of the information to criminally investigate or prosecute any alcohol or drug abuse patient.[facility] Hospital[facility] the event this information is protected by the Federal Confidentiality of Alcohol and Drug Abuse Patient Records regulations: The Federal rules restrict any use of the information to criminally investigate or prosecute any alcohol or drug abuse patient.[facility] Hospital[facility] the event this information is protected by the Federal Confidentiality of Alcohol and Drug Abuse Patient Records regulations: The Federal rules restrict any use of the information to criminally investigate or prosecute any alcohol or drug abuse patient.[facility] Hospital[facility] the event this information is protected by the Federal Confidentiality of Alcohol and Drug Abuse Patient Records regulations: The Federal rules restrict any use of the information to criminally investigate or prosecute any alcohol or drug abuse patient.[facility] Hospital[facility] the event this information is protected by the Federal Confidentiality of Alcohol and Drug Abuse Patient Records regulations: The Federal rules restrict any use of the information to criminally investigate or prosecute any alcohol or drug abuse patient.[facility] Hospital[facility] the event this information is protected by the Federal Confidentiality of Alcohol and Drug Abuse Patient Records regulations: The Federal rules restrict any use of the information to criminally investigate or prosecute any alcohol or drug abuse patient.[facility] HospitalIn the event this information is protected by the Federal Confidentiality of Alcohol and Drug Abuse Patient Records regulations: The Federal rules restrict any use of the information to criminally investigate or prosecute any alcohol or drug abuse patient.[facility] HospitalIn the event this information is protected by the Federal Confidentiality of Alcohol and Drug Abuse Patient Records regulations: The Federal rules restrict any use of the information to criminally investigate or prosecute any alcohol or drug abuse patient.[facility] HospitalIn the event this information is protected by the Federal Confidentiality of Alcohol and Drug Abuse Patient Records regulations: The Federal rules restrict any use of the information to criminally investigate or prosecute any alcohol or drug abuse patient.[facility] HospitalIn the event this information is protected by the Federal Confidentiality of Alcohol and Drug Abuse Patient Records regulations: The Federal rules restrict any use of the information to criminally investigate or prosecute any alcohol or drug abuse patient.[facility] HospitalIn the event this information is protected by the Federal Confidentiality of Alcohol and Drug Abuse Patient Records regulations: The Federal rules restrict any use of the information to criminally investigate or prosecute any alcohol or drug abuse patient.[facility] HospitalIn the event this information is protected by the Federal Confidentiality of Alcohol and Drug Abuse Patient Records regulations: The Federal rules restrict any use of the information to criminally investigate or prosecute any alcohol or drug abuse patient.[facility] HospitalIn the event this information is protected by the Federal Confidentiality of Alcohol and Drug Abuse Patient Records regulations: The Federal rules restrict any use of the information to criminally investigate or prosecute any alcohol or drug abuse patient.[facility] HospitalIn the event this information is protected by the Federal Confidentiality of Alcohol and Drug Abuse Patient Records regulations: The Federal rules restrict any use of the information to criminally investigate or prosecute any alcohol or drug abuse patient.[facility] HospitalIn the event this information is protected by the Federal Confidentiality of Alcohol and Drug Abuse Patient Records regulations: The Federal rules restrict any use of the information to criminally investigate or prosecute any alcohol or drug abuse patient.[facility] Reason for Visit (unrecogniz ed section and content) Reason Comments Endometrial Biopsy Reason Comments Received Outside Medical Records Reason Comments Results Reason Comments New Patient Specialty Diagnoses / Procedures Referred By Contac t Referred To Contact Diagnoses Thickened endometrium Procedures CONSULT TO MINIMALLY INVASIVE GYNECOLOGIC SURGERY OFFICE/OUTPATIENT [facility] 60 MINUTES Hunter Her MD [address] [place] [place] [address] Referral ID Status Reason Start Date Expiration Date V isits Requested Visits Authorized [id number] Closed PCP Requested Referral Auto-Generated Referral 05/21/2024 05/21/2025 1 1 Reason Comments Consult Specialty Diagnoses / Procedures Referred By Contac t Referred To Contact Diagnoses Endometrial adenocarcinoma (HCC) Procedures CONSULT TO GYNECOLOGIC/ONCOLOGY OFFICE/OUTPATIENT [facility] 60 MINUTES Arleth Lau, PROCEDURES TECH.ESTIMATOR AND DRAFTER SUPERVISOR [address] [place] [address] Referral ID Status Reason Start Date Expiration Date V isits Requested Visits Authorized [id number] Closed PCP Requested Referral Auto-Generated Referral 06/30/2024 06/30/2025 1 1 Reason Comments Research IRB#: [id number] ECHO C linical Trial: Screening/ Enrollment Reason Onset Date Comments Pre-Op Teaching 07/15/2024 Reason Comments Anesthesia Consult Reason Comments Established Patient Reason Comments Results Reason Comments Schedule Surgery Appointment Confirmation Reason Comments Post Op Reason Comments Follow Up Care Teams (unrecognized sec tion and content) Materials Coordinator Relationship Specialty Start Date End Date Adolfo Osborn MD [address] [place] [address] [address] [place] [address] PCP - General Internal Medicine 07/17/24 Materials Coordinator Relationship Specialty Start Date End Date Adolfo Osborn MD [address] [place] [address] 2 [place] [address] PCP - General Internal Medicine 07/17/24 Materials Coordinator Relationship Specialty Start Date End Date Adolfo Osborn MD [address] [place] [address] 2 [place] [address] PCP - General Internal Medicine 07/17/24 Materials Coordinator Relationship Specialty Start Date End Date Adolfo Osborn MD [address] [place] [address] 2 [place] [address] PCP - General Internal Medicine 07/17/24 Materials Coordinator Relationship Specialty Start Date End Date Adolfo Osborn MD [address] [place] [address] 2 [place] [address] PCP - General Internal Medicine 07/17/24 Materials Coordinator Relationship Specialty Start Date End Date Adolfo Osborn MD [address] [place] [address] 2 [place] [address] PCP - General Internal Medicine 07/17/24 Team [...] April 20, 2025 End: April 20, 2025 Team Status: Active Member Role/Relationship Status Dates Dr. Adolfo Osborn MD Primary care physician Active Team Status: Inactive Member Role/Relationship Status Dates Dr. Adolfo Osborn MD Primary care physician Active Start: April 20, 2025 End: April 20, 2025 Dr. Adolfo Osborn MD Attending physician Active Start: April 20, 2025 End: April 20, 2025 Dr. Adolfo Osborn MD Referring Provider Active Start: April 20, 2025 End: April 20, 2025 Team Status: Inactive Member Role/Relationship Status Dates Dr. Adolfo Osborn MD Primary care physician Active Start: May 08, 2025 End: May 08, 2025 Dr. Adolfo Osborn MD Attending physician Active Start: May 08, 2025 End: May 08, 2025 Dr. Adolfo Osborn MD Referring Provider Active Start: May 08, 2025 End: May 08, 2025 Team Status: Active Member Role/Relationship Status Dates Dr. Adolfo Osborn MD Primary care physician Active Start: May 08, 2025 Dr. Deb Jacques MD Attending physician Active Start: May 08, 2025 Team Status: Active Member Role/Relationship Status Dates Dr. Adolfo Osborn MD Primary care physician Active Start: May 22, 2025 Dr. Adolfo Osborn MD Attending physician Active Start: May 22, 2025 Dr. Adolfo Osborn MD Referring Provider Active Start: May 22, 2025 Team Status: Inactive Member Role/Relationship Status Dates Dr. Adolfo Osborn MD Primary care physician Active Start: May 22, 2025 End: May 22, 2025 Dr. Adolfo Osborn MD Attending physician Active Start: May 22, 2025 End: May 22, 2025 Dr. Adolfo Osborn MD Referring Provider Active Start: May 22, 2025 End: May 22, 2025 Team Status: Inactive Member Role/Relationship Status Dates Dr. Adolfo Osborn MD Primary care physician Active Start: June 12, 2025 End: June 12, 2025 Dr. Adolfo Osborn MD Referring Provider Active Start: June 12, 2025 End: June 12, 2025 Dr. Alex Filney MD Attending physician Active Start: June 12, 2025 End: June 12, 2025 Goals (unrecognized section and content) Goals may be documented in a n alternate sectionGoals may be documented in an alternate sectionGoals may be documented in an alternate sectionGoals may be documented in an alternate section FOR RECORDS PERTAINING TO PATIENTS [...] BE BASED ON THE PRIMARY CLINICAL RECORDS. [employer] provides no warranty or guarantee of the accuracy or completeness of information in this document.
[2025-07-09 14:17] LABS: Glucose, Dipstick Normal (Normal); Ketone-Dipstick Negative (Negative); Leukocyte Esterase-Dipstick 25 /ul (Negative); Nitrite-Dipstick Positive (Negative); Occult Blood-Urine 250 /ul (Negative); Protein-Dipstick 100 mg/dl (Negative); Specific Gravity, Urine 1.010 (1.002-1.030); Urine Bilirubin Dipstick Negative (Negative)
[2025-07-09 14:18] LABS: Color, Urine SEE COMMENT BELOW (Yellow)
--- NOTE | 2025-07-12 11:46 | STRESSREP ---
Stress Test Report Date: 07/09/2025 Procedure: Pharmacologic stress nuclear imaging study Indications: A-fib, abnormal EKG Consent: Per the patient Procedure: The patient underwent pharmacologic (Regadenoson) evaluation with a peak heart rate of 96 beats per minute (63%predicted maximal heart rate) and a peak blood pressure of 146/84 mmHg. The baseline ECG demonstrated atrial fibrillation. EKG during lexiscan infusion revealed no significant ST-T changes. EKG post infusion revealed no significant ST-T changes [There were no cardiac dysrhythmias pretest, during pharmacologic infusion, or recovery]. [There was no complaint of chest discomfort during pharmacologic infusion or recovery]. The examination was discontinued secondary to completion of protocol. Impression: 1. Lexiscan stress test test is negative for Lexiscan infusion induced EKG changes of ischemia. 2. Lexiscan stress test test is negative for Lexiscan infusion induced chest pain. 3. Results of the nuclear portion of the test is as below Myocardial perfusion imaging study: Technique: The patient was injected with 15.4 millicuries of technetium 99m Cardiolite and subsequently rest SPECT Cardiolite nuclear imaging was obtained in the horizontal long, vertical long, and short axis views. The patient underwent pharmacologic [Regadenoson 0.4mg] evaluation. Please see above for details. The patient was injected with 45.7 millicuries of technetium 99m Cardiolite and subsequently stress SPECT Cardiolite nuclear imaging was obtained in the horizontal long, vertical long, and short axis views. A gated Cardiolite study at peak stress was obtained. Interpretation: Rest and stress SPECT Cardiolite nuclear imaging status post realignment, normalization, and attenuation correction demonstrate possible inferior ischemia. No definite evidence of infarction. Test is somewhat suboptimal due to extracardiac uptake. Gated images reveal no significant regional wall motion abnormalities. The reported LVEF is 72%. Impression: 1. Mild inferior ischemia cannot be excluded 2. Estimated ejection fraction is 72%. This note was generated with [employer] software. It may contain incorrect words, spelling, and punctuation that were not noted in checking the note before signing.
== END | disposition home or self-care (01) ==
PROVIDERS: PCP Internal Medicine; Referring Provider Internal Medicine Cardiovascular Disease; Visit Provider Internal Medicine Cardiovascular Disease
DX: R94.31 Abnormal electrocardiogram [ECG] [EKG] (principal); I48.0 Paroxysmal atrial fibrillation; R30.0 Dysuria
CPT/HCPCS: 78452; 81002; 87077; 87086; 87088; 87186; 93017; A9500; A4216; J2785

== ENCOUNTER 2025-07-29 10:27 | Day surgery (SDC) | payer MEDICARE, OTHER, SELFPAY ==
--- NOTE | 2025-07-21 10:55 | RAD_ITS ---
PROCEDURE: CHEST PA AND LATERAL 07/21/2025 REASON FOR EXAM: CARDIOVERSION TECHNIQUE: Procedure Code: RADCXR Modality: DX Procedure: CHEST PA AND LATERAL COMPARISON: 17 September 2020 FINDINGS: The lungs are adequately aerated bilaterally with central vascular congestion and interstitial edema. Cardiomegaly with atheromatous changes of the aorta. No pleural effusion or pneumothorax. Degenerative changes of the shoulders and spine. RAD/Chest PA and Lateral IMPRESSION: Cardiomegaly with central vascular congestion and interstitial edema, findings that can be seen with CHF exacerbation. Reading Location: [id number]
[2025-07-21 11:22] LABS: Anion Gap 25 (5-15); BUN 11 mg/dL (4-19); BUN/Creat Ratio 18.6 RATIO (10-20); Calcium,Total 7.9 mg/dL (7.6-11.0); Carbon Dioxide 13.7 mmol/L (21.0-32.0); Chloride 103 mmol/L (98-108); Glucose 79 mg/dL (70-99); Potassium 3.8 mmol/L (3.3-5.1)
[2025-07-28 08:46] VITALS: BMI 60.9
--- NOTE | 2025-07-29 12:40 | CARDIOVERS_ITS ---
Cardioversion Cardioversion: Patient is a pleasant 69-year-old white female brought to the Environmental Engineering Manager for direct-current cardioversion. Patient was recently diagnosed with paroxysmal atrial fibrillation within the last 3 months. She has been on Eliquis uninterrupted for over a month rate has been well-controlled with Lopressor. The patient has not missed any doses of her Eliquis. She was brought to the Environmental Engineering Manager in the fasting state. After informed consent Dr. Zuhair Buck provided anesthesia with 170 mg of IV propofol. With pads placed in the anterior posterior positions a synchronized 300 J shock was delivered. The patient converted from atrial fibrillation to normal sinus rhythm at 70 bpm. The patient awoke from anesthesia was totally alert and awake with no obvious neurologic deficits. The patient will be discharged to home and follow-up with the [facility] for an ECG in 1 week and further evaluation in 4 to 6 weeks. Procedures Coronary Therapeutic CF Procedures [id number]: 22111 Cardioversion electric ext
--- NOTE | 2025-07-29 12:43 | PRO.PCM_ITS ---
Procedures Pulmonary Pulmonary Procedures /Diagnostic Testin Con Sedation Bedside Procedural Bedside Procedure Information Date of Procedure: 07/29/25 Description of procedure: CONSCIOUS SEDATION REPORT DATE OF SERVICE: July 29, 2025 BRIEF HISTORY OF PRESENT ILLNESS: The patient is a 69-year-old female who presented to [facility] to undergo an elective outpatient cardioversion due to underlying atrial fib rillation. The patient has never previously undergone a cardioversion. She denied any prior anesthetic complications. She does have a known history of obstructive sleep apnea, but reports compliance with nocturnal PAP therapy. She is a lifelong non-smoker. The patient is systemically anticoagulated on Eliquis. Her last surface echocardiogram demonstrated an ejection fraction of approximately 65%. PHYSICAL EXAMINATION: VITAL SIGNS: Reviewed and were acceptable. GENERAL: The patient is an obese female, in no apparent distress, speaking in full sentences. HEENT: Normocephalic, atraumatic. Mucous membranes are moist and pink. Good mouth opening noted. Trachea is midline. MPII CHEST: S1, S2 irregularly irregular. No murmurs, rubs or gallops were noted. LUNGS: Clear to auscultation bilaterally without appreciable wheezes, rales or rhonchi. ABDOMEN: Soft, nontender, nondistended. Positive bowel sounds. EXTREMITIES: There is no clubbing, cyanosis or edema. ASA Class: II DESCRIPTION OF PROCEDURE: After confirmation of informed consent, the patient's anesthesia plan was reviewed in detail. Propofol was chosen. Risks and benefits were reviewed and the patient agreed to proceed. At 1221, the patient was given her first bolus of propofol. In total, the patient required 170 mg of propofol to achieve an appropriate level of sedation, after which time, she was given a 300 J synchronized cardioversion by Dr. Finley at the bedside. This was successful in achieving normal sinus rhythm. The patient was monitored until 1237, at which time she reached her baseline mental status and function. The patient tolerated the procedure well. COMPLICATIONS: None ESTIMATED BLOOD LOSS: None RECOMMENDATIONS: Okay to recover in usual fashion.
== END 2025-07-29 13:30 | disposition home or self-care (01) ==
PROVIDERS: Nurse Practitioner Gerontology; PCP Internal Medicine; Referring Provider Internal Medicine Cardiovascular Disease; Visit Provider Internal Medicine Cardiovascular Disease
DX: I48.0 Paroxysmal atrial fibrillation (principal); E66.01 Morbid (severe) obesity due to excess calories; Z79.01 Long term (current) use of anticoagulants; I10 Essential (primary) hypertension; E78.5 Hyperlipidemia, unspecified; I25.10 Atherosclerotic heart disease of native coronary artery without angina pectoris; R06.09 Other forms of dyspnea; Z79.899 Other long term (current) drug therapy
CPT/HCPCS: 36415; 71046; 80048; 92960; 93005